=== PATIENT | male | born 1960 ===

== ENCOUNTER 2017-01-20 10:39 | Day surgery (SDC) | payer MEDICAID ==
[2017-01-01 19:59] VITALS: BMI 25.8
[~2017-01-20 10:39] MED LIST: Lactated Ringer's 1,000 ML IV SCH
[2017-01-20 11:19] LABS: ADD MANUAL DIFF? NO
[2017-01-20 11:22] LABS: BASO # 0.03 K/mm3 (0.0-2.0); BASO % 0.5 % (0.0-3.0); EOS # 0.1 (0.0-0.7); EOS % 1.5 % (1.5-5.0); GRAN # 4.65 (1.4-6.5); GRAN % 71.6 % (50.0-68.0); HEMATOCRIT 36.5 % (42.0-52.0); LYMPH # 1.3 (1.2-3.4); LYMPH % 19.3 % (22.0-35.0); MEAN CELL VOLUME 88.6 fL (80.0-105.0); MEAN CORPUSCULAR HEMOGLOBIN 31.3 pg (25.0-35.0); MEAN CORPUSCULAR HGB CONC 35.3 g/dl (31.0-37.0); MEAN PLATELET VOLUME 9.6 fl (7.0-11.0); MONO # 0.5 (0.1-0.6); MONO % 7.1 % (1.0-6.0); PLATELET COUNT 325 10^3/uL (120.0-450.0); RED CELL DISTRIBUTION WIDTH 15.3 % (11.5-14.5); WHITE BLOOD COUNT 6.5 10^3/ul (4.5-11.0)
[2017-01-20 11:30] LABS: ALB/GLOB RATIO 1.1 (1.1-1.8); ALKALINE PHOSPHATASE 419 U/L (38-133); ALT/SGPT 32 U/L (7-56); AMYLASE 119 U/L (35-125); AST/SGOT 31 U/L (15-59); BILIRUBIN,TOTAL 3.1 mg/dL (0.2-1.3); BLOOD UREA NITROGEN 9 mg/dL (7-21); CALCIUM 9.4 mg/dL (8.4-10.5); CARBON DIOXIDE 28 mmol/L (21-33); CHLORIDE 101 mmol/L (95-110); GFR AFRICAN-AMERICAN > 60; GLUCOSE,RANDOM 272 mg/dL (70-110); LIPASE 62 U/L (23-300); POTASSIUM 3.7 mmol/L (3.6-5.0); SODIUM 137 mmol/L (132-148); TOTAL PROTEIN 7.7 g/dL (5.8-8.3)
[2017-01-20 11:33] LABS: INR 1.06 (0.93-1.08); PARTIAL THROMBOPLASTIN TIME 26.6 Seconds (23.7-30.8)
[2017-01-20] MEDS ORDERED: Indomethacin 50 MG Suppository PR ONE (13:33)
[2017-01-20] MEDS ORDERED: Glucagon Recombinant 1 mg Inj ONE (13:35)
[2017-01-20] MEDS ORDERED: Iohexol 240 (50 ml) ONE (13:35)
[2017-01-20] MEDS ORDERED: Propofol 10 mg/ml Inj (20 ML) ONE (14:55)
[2017-01-20] MEDS ORDERED: Midazolam 2 MG/2 ML VIAL ONE ×2 (14:56→16:08)
[2017-01-20] MEDS ORDERED: Rocuronium 10 mg/ml (5 ml) ONE (14:56)
[2017-01-20] MEDS ORDERED: cefTRIAXone (Rocephin) 1 gm Inj ONE (16:15)
[2017-01-20 17:44] VITALS: TEMP 98; O2SAT 99
[2017-01-20 18:09] VITALS: BP 111/76; PULSE 71
[2017-01-20 18:19] VITALS: RESP 20
--- NOTE | 2017-01-24 14:54 | RAD ---
PROCEDURE: ERCP HISTORY: STENT REMOVAL / INSERTION / ? CBD OBST COMPARISON: 01/03/2017. TECHNIQUE: Standard protocol for this study/examination. FINDINGS: Documentation of stent insertions in the common bile duct. IMPRESSION: Total fluoroscopic time (continuous mode) utilized during the procedure: 7 minutes 37 seconds.
== END 2017-01-20 18:35 ==
LOC: ENDO 10:39
PROVIDERS: ATTEND Internal Medicine Gastroenterology
DX: K83.1 Obstruction of bile duct (principal)
CPT/HCPCS: 36415; 43276; 74330; 80053; 82150; 82977; 83690; 85025; 85610; 85730; C1876; J0696; J1610; J2001; J2250; J2405; J2704; J3010; J7040; J7120; Q9966

== ENCOUNTER 2017-02-27 12:10 | Inpatient (IN) | payer MEDICAID ==
[2017-02-27 12:50] VITALS: BMI 24.5
[2017-02-27] MEDS ORDERED: Sodium Chloride 0.9% 1,000 ML IV STA (13:16)
[2017-02-27] MEDS ORDERED: Morphine 4 mg/ml ISec IVP STA (13:16)
[2017-02-27] MEDS ORDERED: Iohexol 350 MG/100 ML VIAL ONE (14:08)
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
--- NOTE | 2017-02-27 17:47 | CT ---
PROCEDURE: CT Abdomen and Pelvis with contrast HISTORY: abd pain COMPARISON: Comparison is made to previous study dated 01/02/2017 TECHNIQUE: Contrast dose: 100 mL Omnipaque 350 Radiation dose: Total exam DLP = for to heat 0.12 mGy-cm. This CT exam was performed using one or more of the following dose reduction techniques: Automated exposure control, adjustment of the mA and/or kV according to patient size, and/or use of iterative reconstruction technique. FINDINGS: LOWER THORAX: Reticular opacities at the lung bases likely scar tissue or atelectasis. No evidence of pneumonia or mass lesion. No evidence of pleural effusion. LIVER: The liver is enlarged. A pneumobilia is seen likely due to biliary stent insertion. No evidence of suspicious mass in the liver. GALLBLADDER AND BILE DUCTS: The gallbladder is distended demonstrate diffuse wall thickening and surrounding with mild inflammatory changes. Small amount of air seen in the gallbladder likely due biliary stent and pneumobilia. Biliary stent is seen in place extending to duodenum. PANCREAS: Pancreatic head mass lesion is again seen at these larger compared to the previous exam. Moderately dilated main pancreatic duct. The pancreatic body and tail is atrophy. SPLEEN: Unremarkable. ADRENALS: Unremarkable. No mass. KIDNEYS AND URETERS: Unremarkable. No hydronephrosis. No solid mass. VASCULATURE: Unremarkable. No aortic aneurysm. BOWEL: Mild constipation is noted. No evidence of bowel obstruction. APPENDIX: No evidence of appendicitis. PERITONEUM: Unremarkable. No free fluid. No free air. LYMPH NODES: [id number] lymphadenopathy seen adjacent to the pancreatic head suggestive of metastasis from the pancreatic mass. BLADDER: Mildly to moderately distended urinary bladder. REPRODUCTIVE: Unremarkable. BONES: No acute fracture. OTHER FINDINGS: None. IMPRESSION: Interval worsening of pancreatic head mass. Interval appearance of lymphadenopathy adjacent to the pancreatic head highly suggestive of metastasis. Interval insertion of biliary stent seen at the appropriate position. Pneumobilia. Distended gallbladder demonstrate diffuse wall thickening and surrounding with inflammatory changes. Correlate clinically for cholecystitis. If indicated further assessment by hepatobiliary scan may be obtained. [id number] constipation. Mildly to moderately distended urinary bladder. Suspicious for filling defect in the left iliac and common femoral vein. Further assessment by Doppler study is suggested to exclude DVT.
[2017-02-27] MEDS ORDERED: Piperacill/Tazo 4.5gm in NS 100 ML IVPB STA (17:52)
[2017-02-27] MEDS ORDERED: Enoxaparin 80 mg Syringe SC ONE (18:15)
[2017-02-27] MEDS ORDERED: Sodium Chloride 0.9% 1,000 ML IV SCH (18:15)
[2017-02-27] MEDS ORDERED: Enoxaparin 80 mg Syringe SC SCH (18:15)
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
[2017-02-27] MEDS ORDERED: HYDROmorphone 0.5 mg/0.5 ml ISec IVP PRN (23:48)
[2017-02-28] MEDS ORDERED: Piperacillin/Tazobact 2.25gm 100 ML IVPB SCH
[2017-02-28 07:11] LABS: INR 1.01 (0.93-1.08); PARTIAL THROMBOPLASTIN TIME 30.3 Seconds (23.7-30.8)
[2017-02-28 07:12] LABS: BASO # 0.01 K/mm3 (0.0-2.0); BASO % 0.3 % (0.0-3.0); EOS # 0.1 (0.0-0.7); GRAN # 2.57 (1.4-6.5); GRAN % 65.2 % (50.0-68.0); HEMATOCRIT 35.4 % (42.0-52.0); LYMPH # 0.4 (1.2-3.4); LYMPH % 8.9 % (22.0-35.0); MEAN CELL VOLUME 89.6 fL (80.0-105.0); MEAN CORPUSCULAR HEMOGLOBIN 31.1 pg (25.0-35.0); MEAN CORPUSCULAR HGB CONC 34.7 g/dl (31.0-37.0); MONO # 0.9 (0.1-0.6); MONO % 23.6 % (1.0-6.0); PLATELET COUNT 162 10^3/uL (120.0-450.0); RED CELL DISTRIBUTION WIDTH 14.7 % (11.5-14.5); WHITE BLOOD COUNT 3.9 10^3/ul (4.5-11.0)
[2017-02-28 07:13] LABS: ADD MANUAL DIFF? NO
[2017-02-28 07:57] LABS: ALB/GLOB RATIO 1.1 (1.1-1.8); ALKALINE PHOSPHATASE 163 U/L (38-133); ALT/SGPT 30 U/L (7-56); AST/SGOT 24 U/L (15-59); BILIRUBIN,TOTAL 0.8 mg/dL (0.2-1.3); BLOOD UREA NITROGEN 5 mg/dL (7-21); CALCIUM 8.4 mg/dL (8.4-10.5); CARBON DIOXIDE 24 mmol/L (21-33); CHLORIDE 107 mmol/L (95-110); GFR AFRICAN-AMERICAN > 60; GLUCOSE,RANDOM 181 mg/dL (70-110); POTASSIUM 3.3 mmol/L (3.6-5.0); SODIUM 143 mmol/L (132-148); TOTAL PROTEIN 6.6 g/dL (5.8-8.3)
--- NOTE | 2017-02-28 08:11 | CP.PCM.PN ---
Subjective - Date & Time of Evaluation Date of Evaluation: 02/28/17 Time of Evaluation: 08:09 - Subjective Subjective: Dr. Mir Gaines PGY1 Note for Surgery Patient seen and examined at bedside; somewhat tangential thought process and therefore unable to get a reliable history although he is talking in complete sentences; denies any fevers/chills, LOPEZ, SOB, CP, abdominal pain, N/V/D, dysuria /freq/urg or lower extremity pain/swelling. When patient was requested if he wanted to eat; he said he did not want to and wishes to remain NPO. Objective - Vital Signs/Intake and Output Vital Signs (last 24 hours): Temp Pulse Resp BP Pulse Ox 98.2 F 74 20 101/63 99 02/28/17 07:59 02/28/17 07:59 02/28/17 07:59 02/28/17 07:59 02/28/17 07:59 - Medications Medications: Current Medications Clozapine (Clozaril) 300 mg PO HS AVA PRN Reason: Protocol Last Admin: 02/28/17 00:48 Dose: 300 mg Clozapine (Clozaril) 200 mg PO QAM AVA PRN Reason: Protocol Donepezil HCl (Aricept) 10 mg PO DAILY AVA Enoxaparin Sodium (Lovenox) 30 mg SC DAILY AVA PRN Reason: Protocol Famotidine (Pepcid) 40 mg PO HS AVA Hydromorphone HCl (Dilaudid) 0.5 mg IVP Q4H PRN PRN Reason: Pain, Mild (1-3) Sodium Chloride (Sodium Chloride 0.9%) 1,000 mls @ 100 mls/hr IV .Q10H AVA Last Admin: 02/27/17 18:36 Dose: 100 mls/hr Insulin Human Regular (Humulin R) 8 units SC ACHS AVA Phenytoin Sodium (Dilantin) 200 mg PO BID AVA Last Admin: 02/28/17 00:47 Dose: 200 mg - Labs Labs: 02/28/17 05:00 PT 10.9 Seconds (9.9-11.8) 02/28/17 06:47 INR 1.01 (0.93-1.08) 02/28/17 06:47 APTT 30.3 Seconds (23.7-30.8) 02/28/17 06:47 Assessment and Plan - Assessment and Plan (Free Text) Assessment: 56M with hx of pancreatic cancer currently undergoing radiation presents with abdominal pain likely 2/2 to pancreatic mass/gallbladder distention CT: GB distention with wall thickening/mild inflammed changes, stent in place, larger pancreatic mass compared with previous scan, mild/moderate lymphadenopathy suggestive of mets, filling defect in the iliac/femoral vein Plan: - NPO, IVF, patient does not want to eat at this time - HIDA scan positive with signs of acute choly - CMP within normal limits - f/u procalcitonin - f/u blood cultures - f/u LE ultrasound - serial abdominal exams; unchanged Will discuss with Dr. Zain Gaines PGY1 Note for Surgery
--- NOTE | 2017-02-28 08:26 | HP ---
CHIEF COMPLAINT: Abdominal pain. HISTORY OF PRESENT ILLNESS: The patient is a 56-year-old male, resident of [facility]. Has history of pancreatic cancer. Was getting chemotherapy and radiation therapy from [facility]. Came to the Emergency Department complaining of abdominal pain for the past 1 to 2 days. History obtained by the Emergency Department. Complaining of abdominal pain. The patient is verbal. He speaks Uzbek. There is no relieving or aggravating factor. No fever, no chills. No nausea, vomiting, or diarrhea. No hematuria or hematochezia. No swelling of the legs. No headache, no dizziness. PAST MEDICAL HISTORY: History of asthma, dementia, seizures, diabetes mellitus type 1. FAMILY HISTORY: Father and mother noncontributory. HABITS: Never smoked, no drugs, no ethanol. ALLERGIES: The patient is not allergic with any medications. HOME MEDICATIONS: Clozaril, insulin. REVIEW OF SYSTEMS: The patient is seen and examined on the bedside. Looks comfortable. No nausea, vomiting, or diarrhea. No hematuria or hematochezia. No swelling of the legs. No chest pain, no palpitation. No headache, no dizziness. PHYSICAL EXAMINATION: VITAL SIGNS: Temperature noted , pulse 78, respiratory rate 18, blood pressure 102/58, pulse oximetry 98. HEENT: Head normocephalic, atraumatic. Eyes: PERRLA. Extraocular muscles intact. Conjunctivae pink. Eyelids unremarkable. Nose patent. NECK: Supple. No carotid bruit, JVD or thyromegaly. CHEST: Bilaterally symmetrical. HEART: S1, S2 positive. LUNGS: Clear to auscultation. ABDOMEN: Soft, tender. No organomegaly. EXTREMITIES: No edema, no cyanosis. NEUROLOGIC: The patient is awake, alert, moving all 4 extremities. No focal deficit. LABORATORY DATA: We do not have labs today. MEDICATIONS: NS. ASSESSMENT AND PLAN: The patient is a 56-year-old male with history of dementia , neurosyphilis, schizophrenia, bipolar, has pancreatic cancer, history of abnormal liver function test, has metal stenting in the biliary system, history of seizures, diabetes mellitus, hypercholesterolemia, hypertriglyceridemia, history of anemia. The patient went for CAT scan of the abdomen of the pancreatic head mass. Interval appearance of lymphadenopathy at the center of the pancreatic head, highly cysts suggestive of metastasis. Interval insertion of biliary stent seen at the appreciated position. History of pneumobilia, distended gallbladder, thickening of the gallbladder sidewall. Looks like cholecystitis, so patient needs to have hepatobiliary scan. Will do HIDA scan tomorrow. Moderate to high constipation. Discussion done with ER physician. Admitted the patient. Dr. Guerrero consult called and Dr. Pittman consult called also. Will continue present treatment. Gastrointestinal and deep venous thrombosis prophylaxis. Repeat labs. Will follow up. Michelle Castillo MD cc: [id number] TT: 02/28/2017 08:25:59 pat CABALLERO
[2017-02-28] MEDS: Insulin Regular 1 UNITS/0.01 ML ML SC SCH ×4 (08:29→21:43)
--- NOTE | 2017-02-28 08:52 | NM ---
PROCEDURE: Nuclear Medicine Hepatobiliary Scan HISTORY: R/O cholecystitis COMPARISON: February 27, 2017. CT abdomen and pelvis. TECHNIQUE: 6.0 mCi of technetium 99m Mebrofenin was administered intravenously. Planar images of the abdomen were obtained at 5 min intervals to 60 mins. Delayed images were also obtained. FINDINGS: LIVER: Timely and homogenous uptake. COMMON BILE DUCT: Visualizes at 5 minutes GALLBLADDER: Not identified at 03:00. . SMALL BOWEL: Identified at 15 mins. IMPRESSION: Positive Hepatobiliary Scan. The cystic duct is occluded consistent with acute. Cholecystitis Concordant results (preliminary interpretation) provided by [facility]. Procedure Completed: 02:03. Preliminary ([facility]) Report: Dictated and Authenticated: 02:55. Final Interpretation: 08:50. February 28, 2017.
--- NOTE | 2017-02-28 10:59 | US ---
HISTORY: Leg pain and swelling. Evaluate for DVT PHYSICIAN(S): Raghu Luque MD. TECHNIQUE: Duplex sonography and color-flow Doppler with graded compression were used to evaluate the deep venous systems of both lower extremities. FINDINGS: The visualized deep venous systems of both lower extremities are sonographically normal and compressible. Normal wave forms and augmentation are seen. There is no sonographic evidence for deep venous thrombosis in the visualized segments of both lower extremities. IMPRESSION: No sonographic evidence for deep venous thrombosis in the visualized segments of both lower extremities.
[2017-02-28] MEDS: Enoxaparin 30 mg Syringe SC SCH (11:20)
--- NOTE | 2017-02-28 11:25 | CARD ---
APPROVED REPORT EKG Measurement Heart [id number] <Conclusion> Normal sinus rhythm Low voltage QRS Left anterior fascicular block Possible Lateral infarct, age undetermined Abnormal ECG
--- NOTE | 2017-02-28 12:29 | CP.PCM.PCO ---
Physician Communication Note - Physician Communication Note Physician Communication Note: Dx:Acalc cholecysttis(Improving-no sepsis)/?stent block Cystic duct=HOLD OR
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
[2017-03-01] MEDS: Insulin Regular 1 UNITS/0.01 ML ML SC SCH ×4 (07:46→23:00)
--- NOTE | 2017-03-01 08:02 | CP.PCM.PN ---
<Mir Cox - Last Filed: 03/01/17 08:03> Subjective - Date & Time of Evaluation Date of Evaluation: 03/01/17 Time of Evaluation: 08:01 - Subjective Subjective: Dr. Mir Cox PGY1 Note for Surgery Patient seen and examined at bedside this AM; denies any fevers/chills, LOPEZ, CP, SOB, abdominal pain, N/V/D, dysuria/freq/urg, or lower extremity pain. Objective - Vital Signs/Intake and Output Vital Signs (last 24 hours): Temp Pulse Resp BP Pulse Ox 98.0 F 74 20 99/63 L 96 03/01/17 07:27 03/01/17 07:27 03/01/17 07:27 03/01/17 07:27 03/01/17 07:27 Intake and Output: 03/01/17 03/01/17 06:59 18:59 Intake Total 0 Output Total 500 Balance -500 - Medications Medications: Current Medications Clozapine (Clozaril) 300 mg PO HS AVA PRN Reason: Protocol Last Admin: 02/28/17 21:40 Dose: 300 mg Clozapine (Clozaril) 200 mg PO QAM AVA PRN Reason: Protocol Last Admin: 02/28/17 11:21 Dose: 200 mg Donepezil HCl (Aricept) 10 mg PO DAILY [facility] Last Admin: 02/28/17 14:23 Dose: 10 mg Enoxaparin Sodium (Lovenox) 30 mg SC DAILY AVA PRN Reason: Protocol Last Admin: 02/28/17 11:20 Dose: 30 mg Famotidine (Pepcid) 40 mg PO HS [facility] Last Admin: 02/28/17 21:44 Dose: 40 mg Hydromorphone HCl (Dilaudid) 0.5 mg IVP Q4H PRN PRN Reason: Pain, Mild (1-3) Last Admin: 02/28/17 11:20 Dose: 0.5 mg Sodium Chloride (Sodium Chloride 0.9%) 1,000 mls @ 100 mls/hr IV .Q10H [facility] Last Admin: 02/27/17 18:36 Dose: 100 mls/hr Insulin Human Regular (Humulin R) 8 units SC ACHS [facility] Last Admin: 03/01/17 07:46 Dose: Not Given Phenytoin Sodium (Dilantin) 200 mg PO BID [facility] Last Admin: 02/28/17 17:50 Dose: 200 mg - Labs Labs: 02/28/17 05:00 02/28/17 06:47 PT 10.9 Seconds (9.9-11.8) 02/28/17 06:47 INR 1.01 (0.93-1.08) 02/28/17 06:47 APTT 30.3 Seconds (23.7-30.8) 02/28/17 06:47 - Constitutional Appears: Non-toxic - Head Exam Additional comments: Head Exam: ATRAUMATIC - Eye Exam Eye Exam: EOMI, PERRL - ENT Exam ENT Exam: Mucous Membranes Moist - Respiratory Exam Respiratory Exam: Clear to Auscultation Bilateral, NORMAL BREATHING PATTERN - Cardiovascular Exam Cardiovascular Exam: REGULAR RHYTHM, +S1, +S2 - GI/Abdominal Exam GI & Abdominal Exam: Soft. absent: Distended, Firm, Guarding, Rebound, Rigid, Tenderness Additional comments: target signs drawn on with ink from radiation facility for radiation noted on abdomen - Extremities Exam Extremities exam: Negative for: pedal edema, tenderness - Psychiatric Exam Psychiatric exam: Normal Affect, Normal Mood - Skin Skin Exam: Dry, Intact, Normal Color, Warm Assessment and Plan - Assessment and Plan (Free Text) Assessment: 56M with hx of pancreatic cancer currently undergoing radiation presents with abdominal pain likely 2/2 to pancreatic mass/gallbladder distention CT: GB distention with wall thickening/mild inflammed changes, stent in place, larger pancreatic mass compared with previous scan, mild/moderate lymphadenopathy suggestive of mets, filling defect in the iliac/femoral vein Plan: - NPO, IVF, patient does not want to eat at this time - HIDA scan positive with signs of acute choly - Stent likely blocking the CBD causing gallbladder distention; GI following follow their recs - CMP within normal limits - procal wnl - BCx no growth after 24hrs; will follow - LE US showed no signs for DVT - serial abdominal exams; unchanged Will discuss with Dr. Zain Cox PGY1 Note for Surgery <Osvaldo Pittman - Last Filed: 03/01/17 08:32> Objective - Vital Signs/Intake and Output Vital Signs (last 24 hours): Temp Pulse Resp BP Pulse Ox 98.0 F 74 20 99/63 L 96 03/01/17 07:27 03/01/17 07:27 03/01/17 07:27 03/01/17 07:27 03/01/17 07:27 Intake and Output: 03/01/17 03/01/17 06:59 18:59 Intake Total 0 Output Total 500 Balance -500 - Medications Medications: Current Medications Clozapine (Clozaril) 300 mg PO HS AVA PRN Reason: Protocol Last Admin: 02/28/17 21:40 Dose: 300 mg Clozapine (Clozaril) 200 mg PO QAM AVA PRN Reason: Protocol Last Admin: 02/28/17 11:21 Dose: 200 mg Donepezil HCl (Aricept) 10 mg PO DAILY [facility] Last Admin: 02/28/17 14:23 Dose: 10 mg Enoxaparin Sodium (Lovenox) 30 mg SC DAILY [facility] PRN Reason: Protocol Last Admin: 02/28/17 11:20 Dose: 30 mg Famotidine (Pepcid) 40 mg PO HS [facility] Last Admin: 02/28/17 21:44 Dose: 40 mg Hydromorphone HCl (Dilaudid) 0.5 mg IVP Q4H PRN PRN Reason: Pain, Mild (1-3) Last Admin: 02/28/17 11:20 Dose: 0.5 mg Sodium Chloride (Sodium Chloride 0.9%) 1,000 mls @ 100 mls/hr IV .Q10H [facility] Last Admin: 02/27/17 18:36 Dose: 100 mls/hr Insulin Human Regular (Humulin R) 8 units SC ACHS [facility] Last Admin: 03/01/17 07:46 Dose: Not Given Phenytoin Sodium (Dilantin) 200 mg PO BID [facility] Last Admin: 02/28/17 17:50 Dose: 200 mg - Labs Labs: 02/28/17 05:00 02/28/17 06:47 PT 10.9 Seconds (9.9-11.8) 02/28/17 06:47 INR 1.01 (0.93-1.08) 02/28/17 06:47 APTT 30.3 Seconds (23.7-30.8) 02/28/17 06:47 Assessment and Plan - Assessment and Plan (Free Text) Plan: Dx Recent Covered metal CD Stent(Pancreatic CA) Non Viz HIDA(?Stent Block cystic duct) Nl LFT_WBC-Procalcitonin Sx abating - minimal tenderness IMP acalculous cholecystitis(Non Septic) Discussed with Dr Rachele Luque possible CT Drainage if sx worsen(Surgery not recommended) This consult done under my direct supervision Carmen Pittman MD FACS
--- NOTE | 2017-03-01 08:07 | PN ---
DATE: 02/28/2017 The patient is a 56-year-old male. The patient was seen and examined on the bedside, looks comfortable. Abdominal pain is getting better. No nausea, vomiting, diarrhea. No hematuria, no hematochezia. The patient is not a very good historian. No headache, no dizziness. PHYSICAL EXAMINATION: VITAL SIGNS: Temperature 98.2, blood pressure 101/63, pulse 74, respirations 20, oxygenation 99% on room air. HEENT: Head normocephalic, atraumatic. Eyes, PERRLA, extraocular muscles intact. Conjunctivae pink. Eyelids unremarkable. Nose patent. NECK: Supple. No carotid bruit, no JVD, no thyromegaly. CHEST: Bilaterally symmetrical. HEART: S1, S2 positive. LUNGS: Clear to auscultation. ABDOMEN: Soft, tender in the epigastric area. No organomegaly. EXTREMITIES: No edema, no cyanosis. NEUROLOGIC: The patient is awake, alert, moving all 4 extremities. No focal deficit. LABORATORIES: White blood cells 3.9, hemoglobin 12.3, hematocrit 35.4, platelets noted . Sodium 143, potassium 3.3, BUN 5, creatinine 0.4, AST 24, ALT 30, amylase 73, lipase 11. Had CAT scan of the abdomen which was showing distended gallbladder with diffuse wall thickening and inflammatory changes. There is amount of air seen in the gallbladder, likely due to the biliary stent and pneumophilia. ASSESSMENT AND PLAN: the patient is a 56-year-old male with pancreatic cancer, getting radiation therapy and chemotherapy, history of neurosyphilis, advanced dementia. Now came with abdominal pain and the patient looks like has acute cholecystitis, history of hypertension, asthma, uncontrolled diabetes mellitus. CT scan of the abdomen appreciated, has mild to moderate lymphadenopathy, possibly mets. Plan is currently n.p.o. We will continue IV fluid for hydration, on proton pump inhibitors, is getting Dilantin. He completed Zosyn therapy. Follow up with patient's course, maybe need endoscopic retrograde cholangiopancreatogram for evaluation of stent and replacement of the stent. We will continue to follow up the patient. Appreciated nurse practitioner, Vale Lo, input. Appreciated Dr. Pittman' communication report. According to him, patient has acalculous cholecystitis, improving, now sepsis, stent block or cystic duct block questionable. Biliary scan is appreciated. Will follow up. Michelle Castillo MD cc: [id number] TT: 03/01/2017 08:06:33 Confirmation # [id number] Dictation # [id number] en [place]
[2017-03-01 09:10] LABS: BASO # 0.02 K/mm3 (0.0-2.0); BASO % 0.5 % (0.0-3.0); EOS # 0.1 (0.0-0.7); EOS % 1.8 % (1.5-5.0); GRAN # 2.64 (1.4-6.5); GRAN % 68.4 % (50.0-68.0); HEMATOCRIT 40.1 % (42.0-52.0); LYMPH # 0.4 (1.2-3.4); LYMPH % 11.4 % (22.0-35.0); MEAN CELL VOLUME 88.9 fL (80.0-105.0); MEAN CORPUSCULAR HEMOGLOBIN 31.5 pg (25.0-35.0); MEAN CORPUSCULAR HGB CONC 35.4 g/dl (31.0-37.0); MONO # 0.7 (0.1-0.6); MONO % 17.9 % (1.0-6.0); PLATELET COUNT 209 10^3/uL (120.0-450.0); RED CELL DISTRIBUTION WIDTH 14.5 % (11.5-14.5); WHITE BLOOD COUNT 3.9 10^3/ul (4.5-11.0)
[2017-03-01 09:14] LABS: ALB/GLOB RATIO 1.2 (1.1-1.8); ALKALINE PHOSPHATASE 195 U/L (38-133); ALT/SGPT 33 U/L (7-56); AST/SGOT 27 U/L (15-59); BLOOD UREA NITROGEN 5 mg/dL (7-21); CALCIUM 9.1 mg/dL (8.4-10.5); CARBON DIOXIDE 19 mmol/L (21-33); CHLORIDE 106 mmol/L (95-110); GFR AFRICAN-AMERICAN > 60; GLUCOSE,RANDOM 119 mg/dL (70-110); POTASSIUM 3.2 mmol/L (3.6-5.0); SODIUM 143 mmol/L (132-148); TOTAL PROTEIN 7.9 g/dL (5.8-8.3)
[2017-03-01 09:22] LABS: ADD MANUAL DIFF? NO
[2017-03-01] MEDS: Enoxaparin 30 mg Syringe SC SCH (09:41)
--- NOTE | 2017-03-01 10:24 | CON ---
DATE: 02/28/2017 ADDENDUM This is an addendum to the GI consultation report dictated by Vale Lo NP. This patient was seen and evaluated earlier, discussed also with Dr. Pittman. This 56-year-old patient with a pancreatic carcinoma status post metal stent placement had placement of metal stent about 6 weeks ago, presented with abdominal pain for 2 days' duration. Pain mainly in the right side of the abdomen. The patient did have some tenderness. A CT scan of the abdomen showed some distention of the gallbladder. HIDA scan showed nonvisualized gallbladder. Gallbladder showed a mild diffuse thickening with some m ild inflammatory changes, and pneumophilia, probably secondary to the ERCP. LFTs remain normal. Con sideration for the patient - options should include cholecystostomy and removal of the metal stent wi th changing it to uncovered metal stent. Clinically, the patient is not in acute distress, only has some mild tenderness present. No leukocyt osis. LFTs normal. We will discuss the oncologist and also the surgeon again ____ the PCP regarding the further treatmen t plan. We will continue to closely follow up his care. The patient is on a liquid diet, and we raghu l continue to closely follow up outpatient and suggest further recommendation based on the clinical c ourse. Harjeet Guerrero MD cc: [id number] TT: 03/01/2017 10:23:12 Confirmation # [id number] Dictation # [id number] ct
[2017-03-01] MEDS ORDERED: Potassium Chloride 20 mEq ER Tab PO ONE (12:00)
--- NOTE | 2017-03-01 12:04 | PN ---
DATE: 03/01/2017 GI FOLLOWUP NOTE Seen and examined at the bedside this morning. He denies nausea, vomiting. Abdominal pain is better . He agrees to starting oral intake. The patient just returned from radiation this morning. No acu te overnight events reported. VITAL SIGNS: Temperature 98.0, blood pressure 99/63, pulse 74, respirations 20, 96 on room air. LABORATORY DATA: WBC 3.9. H and H are 14.2 and 40.1, platelets of 219. His sodium is 143, K 3.2. BUN is 5. Creatinine is 0.4. His total bilirubin is 1.2, AST 27, ALT 33. Alkaline phosphatase is 1 95. PHYSICAL EXAMINATION: HEENT: Sclerae are anicteric. NECK: Supple. CARDIAC: S1, S2. LUNGS: Lung sounds with decreased breath sounds, but good air entry. No rales or wheeze. ABDOMEN: With bowel sounds, soft, nontender on deep palpation. No rebound or guarding. EXTREMITIES: No edema or calf tenderness. ASSESSMENT: A 56-year-old male with history of pancreatic cancer, currently undergoing radiation, ca me with abdominal pain, which may be likely to pancreatic mass, gallbladder distention. The patient did have a CT scan showing gallbladder distention and wall thickening. The stent is in place, but al so noted to have moderate lymphadenopathy suggestive of mets, and the pancreatic mass seems larger th an previous CT scan, status post HIDA with reporting nonvisualization of the gallbladder. PLAN: We will start the patient on clear liquid diet. He also is hypokalemic. We will replace his potassium and recheck the labs in the a.m. Monitor the LFTs. Possible options for the patient could be removal of the metal stent with changing it to an uncovered metal stent versus a cholecystostomy. Option to be considered is removal of the metal stent with changing it to an uncovered metal stent versus a cholecystostomy. We will discuss with oncology and surgical team, as well as PCP. We will continue to follow. The patient was seen and case discussed with Dr. Guerrero. Vale REY cc: [id number] TT: 03/01/2017 12:04:00 Confirmation # [id number] Dictation # [id number] jn
[2017-03-01] MEDS ORDERED: Sodium Chloride 0.9% 1,000 ML IV SCH (22:30)
--- NOTE | 2017-03-01 22:32 | PN ---
DATE: 03/01/2017 ADDENDUM This is an addendum to the GI progress report dictated by Vale Lo NP. The patient is doing well , no complaints of any abdominal pain. PHYSICAL EXAMINATION: ABDOMEN: Soft. There is no tenderness. LABORATORY DATA: WBC count is only 3.9. There is a mild evaluation of the was noticed. IMPRESSION: Presently not on any antibiotics. The patient was antibiotics; the patient was on Zosyn , which has been discontinued. It is reasonable to consider restarting antibiotics to complete the c ourse. Since the patient is doing clinically well with no symptoms, would not contemplate doing any changes in the present time. The risks, benefits were discussed. The reasonable approach is we will c losely monitor the patient at the present time. We will consider further options including cholecyst ostomy and also repeat ERCP with if needed based on the clinical response. Thank you very much for allowing us to participate in the care of the patient. Harjeet Guerrero MD cc: [id number] TT: 03/01/2017 22:31:41 Confirmation # [id number] Dictation # [id number] mn
--- NOTE | 2017-03-02 00:45 | CON ---
DATE: 03/01/2017 REQUESTING PHYSICIAN: Dr. Finch. CHIEF COMPLAINT: Abdominal pain. HISTORY OF PRESENT ILLNESS: The patient is a 56-year-old male looking older than his stated age, adm itted by Dr. Castillo, his primary doctor, via the Emergency Room for worsening abdominal pain for 2 da ys' time. He is known to suffer from pancreatic cancer, dementia, neurosyphilis, bipolar disorder. He is otherwise resting comfortably now. Reporting that his abdominal pain is significantly improved . He is otherwise in no acute distress. ALLERGIES: No known allergies. MEDICATIONS: At present include Aricept, clozapine, Dilantin, Dilaudid, insulin coverage, potassium, Lovenox, Pepcid, sodium chloride, piperacillin and tazobactam. PAST MEDICAL HISTORY: Significant for dementia; paranoid schizophrenia; neurosyphilis; locally advan sowmya pancreatic carcinoma involving the splenic vein, not a surgical candidate; dementia; asthma; seiz ure disorder; hypertension; history of jaundice. FAMILY HISTORY AND SOCIAL HISTORY: Noncontributory. REVIEW OF SYSTEMS: Essentially negative to questioning except as above. OBJECTIVE/PHYSICAL EXAMINATION: VITAL SIGNS: Temperature 98.8, pulse 72, respirations 18, blood pressure 102/67, and pulse ox 98%. HEENT: Unremarkable. NECK: Supple. HEART: Regular rate. LUNGS: Clear. ABDOMEN: Soft with no tenderness this visit. EXTREMITIES: No edema. SKIN: Warm, dry, and clear. NEUROLOGIC: Awake and alert. LABORATORY DATA: White blood cell count of 3.9, hemoglobin 14.2, hematocrit of 40.1, platelet count of 209,000 with a chem metabolic panel showing a potassium of 3.2, BUN of 5, creatinine of 0.4 with a n alk phos of 195. Procalcitonin 0.05. INR of 1.01 yesterday. ASSESSMENT: Abdominal pain, improved; dementia; neurosyphilis; bipolar disorder; schizophrenia; panc reatic cancer; seizure disorder; diabetes; anemia; hypokalemia. PLAN: After conversation with Dr. Finch, is to continue present the medical regimen with chemother apy and radiation, which he was tolerating well and continue his present medical regimen with the pat ient presently getting normal saline with no potassium. The patient tolerating a liquid diet. We wi ll monitor clinically and with labs. Prognosis for this patient is guarded. We will cut back on his IV fluids from 100 mL an hour to 50 with prognosis for this patient guarded. Wild Santillan MD cc: [id number] TT: 03/02/2017 00:44:22 Confirmation # [id number] Dictation # [id number] tn
[2017-03-02 07:17] LABS: ALB/GLOB RATIO 1.1 (1.1-1.8); ALKALINE PHOSPHATASE 162 U/L (38-133); ALT/SGPT 36 U/L (7-56); AST/SGOT 26 U/L (15-59); BILIRUBIN,TOTAL 0.8 mg/dL (0.2-1.3); BLOOD UREA NITROGEN 2 mg/dL (7-21); CALCIUM 8.6 mg/dL (8.4-10.5); CARBON DIOXIDE 24 mmol/L (21-33); CHLORIDE 109 mmol/L (98-107); GFR AFRICAN-AMERICAN > 60; GLUCOSE,RANDOM 130 mg/dL (70-110); POTASSIUM 3.6 mmol/L (3.6-5.0); SODIUM 143 mmol/L (132-148); TOTAL PROTEIN 6.8 g/dL (5.8-8.3)
[2017-03-02] MEDS: Insulin Regular 1 UNITS/0.01 ML ML SC SCH ×3 (08:14→16:35)
--- NOTE | 2017-03-02 09:09 | CP.PCM.PCO ---
Physician Communication Note - Physician Communication Note Physician Communication Note: No Pain-infection/Rx Change CD Stent)Part Occluding/No surgery now
--- NOTE | 2017-03-02 09:59 | PN ---
DATE: 03/01/2017 The patient is a 56-year-old male. The patient was seen and examined on 03/01/2017 on the bedside, lo oks comfortable, got radiation therapy. No overnight event noted. No nausea, vomiting, diarrhea. T olerated food well. No hematuria, no hematochezia. Feeling better. PHYSICAL EXAMINATION: VITAL SIGNS: Temperature 98, blood pressure 99/63, pulse 74, respiratory rate 20, oxygenation 96% on room air. HEENT: Head normocephalic, atraumatic. Eyes PERRLA, extraocular muscles intact. Conjunctivae pink. Eyelids unremarkable. Nose patent. Mucous membranes moist. NECK: Supple. No carotid bruit, no JVD, no thyromegaly. CHEST: Bilaterally symmetrical. HEART: S1, S2 positive. LUNGS: Clear to auscultation. ABDOMEN: Soft. Bowel sounds positive. No organomegaly. EXTREMITIES: No edema, no cyanosis. NEUROLOGIC: The patient is awake, alert, moving all 4 extremities. No focal deficits. LABORATORIES: White blood cells 3.9, hemoglobin 14.2, hematocrit 40.1, platelets 219. Sodium 143, p otassium 3.2, BUN 5, creatinine 0.4, AST 27, ALT 33. MEDICATIONS: Reviewed by me. ASSESSMENT AND PLAN: The patient is a 56-year-old male, seen and examined on 03/01/2017, has pancreat ic cancer, getting radiation therapy, came with abdominal pain which may be likely due to pancreatic mass, gallbladder distention. The patient had a CAT scan showing gallbladder distention and wall thi ckening. The stent is in place, but also noted to have moderate lymphadenopathy suggestive of the me ts and the pancreatic mets seem larger than the previous CT scan. Status post HIDA with reporting no nvisualization of the gallbladder. The patient was started on clear liquid diet. Potassium was repl aced, but we are monitoring H and H and LFTs. Maybe patient needs to be removal of the metal stent w ith changing it into uncovered metal stent versus cholecystectomy. Oncology, surgery, GI is on the c ase. Appreciated GI input, appreciated Dr. Pittman's input. Physical therapy, out of bed. Will fo llow up. Michelle Castillo MD cc: [id number] TT: 03/02/2017 09:59:23 Confirmation # [id number] Dictation # [id number] en
[2017-03-02] MEDS: Enoxaparin 30 mg Syringe SC SCH (10:06)
--- NOTE | 2017-03-02 15:29 | CP.PCM.PN ---
Subjective - Date & Time of Evaluation Date of Evaluation: 03/02/17 Time of Evaluation: 15:28 - Subjective Subjective: Dr. Mir Gaines PGY1 Surgery Note for Dr. Pittman Patient seen and examined at bedside this afternoon; denies any acute events or complaints; still does not feel like eating although has been eating trays that are brought to him without problem; denies fevers/chills, LOPEZ, CP, SOB, abdominal pain, N/V/D, dysuria/freq/urg, or lower extremity pain. Objective - Vital Signs/Intake and Output Vital Signs (last 24 hours): Temp Pulse Resp BP Pulse Ox 98.0 F 65 20 98/54 L 97 03/02/17 07:25 03/02/17 07:25 03/02/17 07:25 03/02/17 07:25 03/02/17 07:25 Intake and Output: 03/02/17 03/02/17 06:59 18:59 Intake Total 1480 560 Output Total 400 Balance 1080 560 - Medications Medications: Current Medications Clozapine (Clozaril) 300 mg PO HS AVA PRN Reason: Protocol Last Admin: 03/01/17 22:09 Dose: 300 mg Clozapine (Clozaril) 200 mg PO QAM AVA PRN Reason: Protocol Last Admin: 03/02/17 10:05 Dose: 200 mg Donepezil HCl (Aricept) 10 mg PO DAILY [facility] Last Admin: 03/02/17 10:06 Dose: 10 mg Enoxaparin Sodium (Lovenox) 30 mg SC DAILY AVA PRN Reason: Protocol Last Admin: 03/02/17 10:06 Dose: 30 mg Famotidine (Pepcid) 40 mg PO HS [facility] Last Admin: 03/01/17 22:11 Dose: 40 mg Hydromorphone HCl (Dilaudid) 0.5 mg IVP Q4H PRN PRN Reason: Pain, Mild (1-3) Last Admin: 02/28/17 11:20 Dose: 0.5 mg Sodium Chloride (Sodium Chloride 0.9%) 1,000 mls @ 50 mls/hr IV .Q20H [facility] Last Admin: 03/01/17 22:48 Dose: 50 mls/hr Insulin Human Regular (Humulin R) 8 units SC ACHS [facility] Last Admin: 03/02/17 11:58 Dose: 8 units Phenytoin Sodium (Dilantin) 200 mg PO BID AVA Last Admin: 03/02/17 10:06 Dose: 200 mg - Labs Labs: 03/01/17 07:30 03/02/17 06:00 PT 10.9 Seconds (9.9-11.8) 02/28/17 06:47 INR 1.01 (0.93-1.08) 02/28/17 06:47 APTT 30.3 Seconds (23.7-30.8) 02/28/17 06:47 - Constitutional Appears: Non-toxic - Head Exam Additional comments: Head Exam: ATRAUMATIC - Eye Exam Eye Exam: EOMI, PERRL - ENT Exam ENT Exam: Mucous Membranes Moist - Respiratory Exam Respiratory Exam: Clear to Auscultation Bilateral, NORMAL BREATHING PATTERN - Cardiovascular Exam Cardiovascular Exam: REGULAR RHYTHM, +S1, +S2 - GI/Abdominal Exam GI & Abdominal Exam: Soft. absent: Distended, Firm, Guarding, Rebound, Rigid, Tenderness Additional comments: target signs drawn on with ink from radiation facility for radiation noted on abdomen - Extremities Exam Extremities exam: Negative for: pedal edema, tenderness - Psychiatric Exam Psychiatric exam: Normal Affect, Normal Mood - Skin Skin Exam: Dry, Intact, Normal Color, Warm Assessment and Plan - Assessment and Plan (Free Text) Assessment: 56M with hx of pancreatic cancer currently undergoing radiation presents with abdominal pain likely 2/2 to pancreatic mass/gallbladder distention CT: GB distention with wall thickening/mild inflammed changes, stent in place, larger pancreatic mass compared with previous scan, mild/moderate lymphadenopathy suggestive of mets, filling defect in the iliac/femoral vein Plan: - Patient on CLD; tolerating - HIDA scan positive; however no surgery indicated at this time - Stent likely blocking the CBD causing gallbladder distention; GI following follow their recs as well - CMP within normal limits - procal wnl - BCx no growth after 48hrs; will follow - LE US showed no signs for DVT - serial abdominal exams; unchanged Will discuss with Dr. Zain Gaines PGY1 Note for Surgery
[2017-03-02 16:41] VITALS: BP 113/72; PULSE 80; RESP 18; TEMP 98.3; O2SAT 100
--- NOTE | 2017-03-02 18:33 | PN ---
DATE: 03/02/2017 Seen and examined at the bedside earlier this morning. No acute overnight events reported. Nursing staff at bedside for translation. The patient does not complain of any abdominal pain. He is a bit annoyed, he is hungry. He is tolerating the clear liquid diet. No reports of any diarrhea, fever or chills. The patient did have bowel movement. No reports of overt GI bleed. VITAL SIGNS: Temperature is 98, blood pressure 98/54, pulse 65, respirations 20 , 97 on room air. LABORATORY DATA: CMP: Sodium 143, K 3.6. His total bilirubin is 0.8, AST 26, ALT 36, alkaline phosphatase is bit improved at 162. Dilantin level is at 8, it is low. The patient's Dilantin doses have been reviewed. See orders. The patient's Dilantin dose has been adjusted per PCP. PHYSICAL EXAMINATION: HEENT: Sclerae are anicteric. NECK: Supple. CARDIAC: S1, S2. LUNGS: Lung sounds with decreased breath sounds, but good air entry. No rales or wheeze. ABDOMEN: With bowel sounds, soft, nontender on deep palpation. No rebound or guarding. EXTREMITIES: No edema or calf tenderness. ASSESSMENT: A 56-year-old male with history of pancreatic cancer, currently undergoing radiation, came with abdominal pain, which may be likely to pancreatic mass, gallbladder distention. The patient did have a CT scan showing gallbladder distention and wall thickening. The stent is in place, but also noted to have moderate lymphadenopathy suggestive of mets, and the pancreatic mass seems larger than previous CT scan, status post HIDA with reporting nonvisualization of the gallbladder. PLAN: We will increase patient's diet to a low fat, soft diet. Monitor liver function tests. The patient is clinically doing well with no symptoms. No plans for any GI intervention at this time. Will continue to follow the patient. Depending upon patient's clinical response, can consider further options of cholecystostomy or repeat ERCP. The patient was seen and case discussed Dr. Guerrero. Vale REY cc: [id number] TT: 03/02/2017 18:33:30 Confirmation # [id number] Dictation # [id number] jn MTDD
--- NOTE | 2017-03-03 00:12 | PN ---
DATE: 03/02/2017 SUBJECTIVE: The patient was seen and examined on the bedside, sitting on the chair. No more pain. No nausea or vomiting. No diarrhea. No acute overnight events reported. The patient is tolerating food very well. The patient had bowel movement. No reports for overt GI bleeding. PHYSICAL EXAMINATION: VITAL SIGNS: Temperature 98, blood pressure 98/54, pulse 65, respiratory rate 20, pulse oximetry 97% on room air. HEENT: Head normocephalic, atraumatic. Eyes PERRLA. Extraocular muscles intact. Conjunctivae clear. Nose patent. Mucous membranes moist. NECK: Supple. No carotid bruits, JVD or thyromegaly. CHEST: Bilaterally symmetrical. HEART: S1, S2 positive. LUNGS: Clear to auscultation. ABDOMEN: Soft. Bowel sounds present. No organomegaly. EXTREMITIES: No edema, no cyanosis. NEUROLOGIC: The patient awake, alert, moving all 4 extremities. No focal deficits. MEDICATIONS: Reviewed by me. LABORATORY DATA: Sodium 143, potassium 3.4, bilirubin 0.8, AST 26, ALT 36, alkaline phosphate improving to 162. Dilantin level is 8, a little bit low. ASSESSMENT AND PLAN: The patient is a 56-year-old male with history of neurosyphilis, history of seizures. Was on Dilantin at 200 mg twice a day, now Dilantin level is low 8. I made Dilantin 300 in the morning, 200 in the evening. We will repeat Dilantin level later on. History of abnormal liver function test, trending down. Clinically, patient is doing better with no symptoms. History of pancreatic cancer, diabetes mellitus. According to gastrointestinal, no plans for any gastrointestinal intervention at this time. Depending on patient's clinical condition, gastrointestinal is recommending options of cholecystectomy or repeat ERCP. Appreciated Dr. Pittman' input also. History of schizophrenia, depression, bipolar. The patient is undergoing radiation therapy due to pancreatic cancer. The patient has some pancreatic mass or gallbladder distention, may be cause of the pain. Stent is placed. pancreatic mass compared to the previous scan. Mild/moderate lymphadenopathy, Gastrointestinal, deep venous thrombosis prophylaxis. HIDA scan positive for no surgery indicated at this time. Out of bed, physical therapy. Length of time discussion done with the nursing staff. We will follow up. Michelle Castillo MD cc: [id number] TT: 03/03/2017 00:11:21 Confirmation # [id number] Dictation # [id number] MTDD
--- NOTE | 2017-03-03 02:29 | PN ---
DATE: 03/02/2017 SUBJECTIVE: This patient was seen and evaluated earlier. The patient has no abdominal pain. The di et has been advanced, tolerating very well. LABORATORY DATA: Bilirubin and total alkaline phosphatase has come down to 162. The patient is not on any antibiotics now. PHYSICAL EXAMINATION: The patient remains afebrile, no leukocytosis. No tenderness. IMPRESSION: This 56-year-old patient with obstruction secondary to the pancreatic mass, status post metal stent placement, admitted after two months with abdominal pain, distended gallbladder, possible cystic duct obstruction. The patient is afebrile with no tenderness, no leukocytosis. LFTs remains stable. The options were discussed. Regarding the stent change with cholecystectomy, since the pat ient remains totally asymptomatic off the medication and normal LFTs, the reasonable approach is to f ollow with conservative management at the present time. Should the patient have any worsening of the symptoms or the patient develops symptoms or worsening of the LFTs more, we will consider interventi on. The reasonable approach to at the presentation is conservative management. This will be discuss ed with the surgical team also. I have discussed earlier regarding this patient with Dr. Raghu Luque , interventional radiologist, and also tertiary earlier. Thank you very much for allowing me to participate in the care of the patient. Harjeet Guerrero MD cc: [id number] TT: 03/03/2017 02:29:19 Confirmation # [id number] Dictation # [id number] mn
--- NOTE | 2017-03-13 08:24 | DS ---
CHIEF COMPLAINT: Abdominal pain. HISTORY OF PRESENT ILLNESS: The patient is a 56-year-old male resident of [facility], has a history of pancreatic cancer, was getting chemotherapy, radiation therapy from [facility]. Came to the Emergency Department complaining of abdominal pain. The patient speaks [place], but we got the history with the service desk team lead. No relieving and aggravating factors. No fever or chills. We admitted the patient, did CAT scan of abdomen and pelvis, biliary scan. Seen by Dr. Osvaldo Pittman, by Dr. Guerrero. Liver function enzymes got better. Discharged back to [facility] on 03/02/2017. PAST MEDICAL HISTORY: Asthma, dementia, seizure, diabetes mellitus. FAMILY HISTORY: Father and mother noncontributory. HABITS: No smoking, no drugs, no ethanol. ALLERGIES: The patient is not allergic with any medications. HOME MEDICATIONS: Clozaril, insulin. REVIEW OF SYSTEMS: The patient is seen and examined on the bedside, looks comfortable. No nausea, vomiting, diarrhea. No hematuria, no hematochezia. No swelling of the legs. No chest pain, no palpitation, no headache, no dizziness. PHYSICAL EXAMINATION: VITAL SIGNS: Temperature 98.3, pulse 80, blood pressure 120/72, respiratory rate 18. HEENT: Head normocephalic, atraumatic. Eyes: PERRLA. Extraocular muscles intact. Conjunctivae clear. Nose patent. Mucous membranes moist. NECK: Supple. No carotid bruit, no JVD, no thyromegaly. CHEST: Bilaterally symmetrical. HEART: S1, S2 positive. LUNGS: Clear to auscultation. ABDOMEN: Soft. Bowel sounds positive. No organomegaly. EXTREMITIES: No edema, no cyanosis. NEUROLOGIC: The patient is awake, alert, moving all 4 extremities. No focal deficits, is back to his baseline. LABORATORIES: White blood cells 3.9, hemoglobin 14.2, hematocrit 40.platelets 209. Sodium 143, potassium 3.6, BUN 2, creatinine 0.4, random glucose 130, alkaline phosphatase 162. ASSESSMENT AND PLAN: The patient is a 56-year-old male with anemia, leukopenia , renal insufficiency, hypoglycemia, abnormal liver function test, Dilantin level is low. ASSESSMENT AND PLAN: The patient is a 56-year-old male with history of neurosyphilis, on Dilantin. Dilantin level is low. I increased the Dilantin. History of abnormal liver function tests, trending down. Clinically, patient is doing better with no symptoms, history of pancreatic cancer, diabetes mellitus, history of gastrointestinal disease, biliary stenosis, has biliary stent, history of schizophrenia, depression, bipolar. Getting radiation therapy and chemotherapy for pancreatic cancer. The patient has pancreatic mass and gallbladder distention, may be the cause of the pain. Stent is placed. Pancreatic mass compared to the previous scan is appreciated. Mild to moderate lymphadenopathy. Gastrointestinal and deep vein thrombosis. HIDA scan positive . According to Dr. Pittman, no surgery indicated at this time. Send the patient back to [facility]. Continue chemotherapy and radiation therapy. We will repeat labs there. We will follow up. Michelle Castillo MD cc: [id number] TT: 03/12/2017 08:31:54 en MTDD
== END 2017-03-02 22:18 | DRG 207 ==
LOC: ED 12:10 → ERH 18:02 → 5RNO 02-28 00:34
PROVIDERS: ADMIT Internal Medicine; ATTEND Internal Medicine
DX: K81.0 Acute cholecystitis (principal); C25.0 Malignant neoplasm of head of pancreas; A52.17 General paresis; K82.0 Obstruction of gallbladder; E11.65 Type 2 diabetes mellitus with hyperglycemia; F02.80 Dementia in other diseases classified elsewhere, unspecified severity, without behavioral disturbance, psychotic disturbance, mood disturbance, and anxiety; D64.9 Anemia, unspecified; E78.2 Mixed hyperlipidemia; E87.6 Hypokalemia; F20.0 Paranoid schizophrenia; J45.909 Unspecified asthma, uncomplicated; K59.00 Constipation, unspecified; G40.909 Epilepsy, unspecified, not intractable, without status epilepticus; F31.9 Bipolar disorder, unspecified; R59.1 Generalized enlarged lymph nodes; Z79.4 Long term (current) use of insulin; Z51.0 Encounter for antineoplastic radiation therapy

== ENCOUNTER 2017-05-30 22:49 | Inpatient (IN) | payer MEDICAID ==
--- NOTE | 2017-05-30 23:08 | ED PDOC ---
Arrival/HPI - General Chief Complaint: Seizure Time Seen by Provider: 05/30/17 22:54 Historian: Long-Term, EMS - History of Present Illness Narrative History of Present Illness (Text): 05/30/17 23:07 John Saha is a 56 year old male, whose past medical history includes pancreatic cancer, hypertension, diabetes, dementia, neurosyphilist, seizures, asthma, and psychosis/schizophrenia, who presents to the Emergency department sent [facility] for intermittent seizures today. Patient is drowsy but arousable and angry when questioned. Limited HPI and ROS due to patient's dementia. PMD: Dr. Castillo Time/Duration: Other (today) Symptom Onset: Gradual Symptom Course: Unchanged Activities at Onset: Light Context: Home ([facility]) Past Medical History - Provider Review Nursing Documentation Reviewed: Yes - Infectious Disease Hx of Infectious Diseases: None - Tetanus Immunization Tetanus Immunization: Unknown - Cardiac Hx Hypertension: Yes - Pulmonary Hx Asthma: Yes Hx Tuberculosis: No - Neurological Hx Neurological Disorder: Yes Hx Dementia: Yes Hx Seizures: Yes - HEENT Hx HEENT Disorder: No - Renal Hx Renal Disorder: No - Endocrine/Metabolic Hx Diabetes Mellitus Type 1: Yes Hx Hypothyroidism: Yes - Hematological/Oncological Hx Blood Disorders: No Hx Cancer: No - Integumentary Hx Dermatological Disorder: No - Musculoskeletal/Rheumatological Hx Musculoskeletal Disorders: No Hx Falls: No - Gastrointestinal Other/Comment: pancreatic CA - Genitourinary/Gynecological Hx Genitourinary Disorders: No Hx Sexually Transmitted Diseases: No - Psychiatric Hx Psychophysiologic Disorder: Yes Hx Substance Use: No Other/Comment: DEMENTIA - Past Surgical History Past Surgical History: Unable to Obtain - Surgical History Hx Orthopedic Surgery: Yes (L dislocation) - Anesthesia Hx Anesthesia: Yes - Suicidal Assessment Feels Threatened In Home Enviroment: Yes Family/Social History - Physician Review Nursing Documentation Reviewed: Yes Family/Social History: Unknown Family HX Smoking Status: Smoker Currrent Status Unknown Hx Alcohol Use: No Hx Substance Use: No Hx Substance Use Treatment: No Allergies/Home Meds Allergies/Adverse Reactions: Allergies No Known Allergies Allergy (Verified 05/31/17 14:47) Home Medications: Home Meds Medication Instructions Recorded Confirmed cloZAPine [Clozaril] 300 mg PO HS 03/15/16 05/31/17 cloZAPine [Clozaril] 200 mg PO QAM 01/02/17 05/31/17 Insulin Regular [HumuLIN R] 8 units SC ACHS 01/20/17 05/31/17 Lidocaine 5% [Lidoderm] 1 patch TP DAILY 05/31/17 05/31/17 Ondansetron [Zofran] 4 mg PO PRN PRN 05/31/17 05/31/17 traZODone [trazODONE HYDROCHLORIDE] 50 mg PO HS 05/31/17 05/31/17 Review of Systems - Review of Systems Systems not reviewed;Unavailable: Dementia Neurological: Seizure Physical Exam Vital Signs Reviewed: Yes Vital Signs Pulse Resp BP Pulse Ox 05/30/17 23:28 76 18 105/62 95 Temperature: Afebrile Blood Pressure: Normal Pulse: Regular Respiratory Rate: Normal Appearance: Positive for: Well-Appearing, Comfortable Pain Distress: None Mental Status: Positive for: other (Drowsy but arousable) - Systems Exam Head: Present: Atraumatic, Normocephalic Pupils: Present: PERRL Extroacular Muscles: Present: EOMI Conjunctiva: Present: Normal Mouth: Present: Moist Mucous Membranes Neck: Present: Normal Range of Motion. No: Meningeal Signs, MIDLINE TENDERNESS , Paraspinal Tenderness Respiratory/Chest: Present: Clear to Auscultation, Good Air Exchange. No: Respiratory Distress, Accessory Muscle Use Cardiovascular: Present: Regular Rate and Rhythm, Normal S1, S2. No: Murmurs Abdomen: Present: Normal Bowel Sounds. No: Tenderness, Distention, Peritoneal Signs Upper Extremity: Present: Normal Inspection. No: Cyanosis, Edema Lower Extremity: Present: Normal Inspection. No: Edema Neurological: Present: GCS=15, CN II-XII Intact, Normal Sensory Function, Normal Cerebellar Funct Skin: Present: Warm, Dry, Normal Color. No: Rashes Psychiatric: Present: Other (Drowsy but arousable, angry when questioned) Medical Decision Making ED Course and Treatment: 05/30/17 23:07 Impression: 56 year old male sent from [facility] for intermittent seizures. Plan: -- CT Head w/o contrast -- EKG -- Chest X-ray -- Labs, cardiac enzymes, dilantin level -- Reassess and disposition Prior Visits: Notes and results from previous visits were reviewed. Progress Notes: Reviewed EKG, NSR at 81 bpm. Septal infarct. Non-specific ST/T wave changes. 05/31/17 00:34 Reviewed radiology, Chest X-ray shows no acute processes. 05/31/17 06:00 Please refer to downtime documentation. - Lab Interpretations Lab Results: 05/31/17 00:00 05/31/17 00:00 Lab Results 05/31/17 00:26: POC Glucose (mg/dL) 163 H 05/31/17 00:00: Phenytoin 17 05/31/17 00:00: WBC 4.7 D, RBC 3.94, Hgb 12.2 L, Hct 35.7 L, MCV 90.6, MCH 31.0 , MCHC 34.2, RDW 13.7, Plt Count 278, MPV 9.6 05/31/17 00:00: Sodium 140, Potassium 4.0, Chloride 107, Carbon Dioxide 26, Anion Gap 11, BUN 7, Creatinine 0.3 L, Est GFR ( Amer) > 60, Est GFR (Non -Af Amer) > 60, Random Glucose 141 H, Calcium 8.5, Total Bilirubin 1.1, AST 80 H , ALT 70 H, Alkaline Phosphatase 650 H, Lactate Dehydrogenase 593, Total Creatine Kinase 52, Troponin I < 0.01 D, Total Protein 7.1, Albumin 3.7, Globulin 3.4, Albumin/Globulin Ratio 1.1 05/31/17 00:00: PT 11.0, INR 1.02, APTT 27.9 05/30/17 23:03: POC Glucose (mg/dL) 157 H I have reviewed the lab results: Yes - RAD Interpretation Radiology Orders: 05/30/17 23:07 HEAD W/O CONTRAST [CT] Stat 05/30/17 23:09 CHEST PORTABLE [RAD] Stat Scanner Supervisor: ED Physician - EKG Interpretation Interpreted by ED Physician: Yes Type: 12 lead EKG - Medication Orders Current Medication Orders: Clozapine (Clozaril) 200 mg PO QAM AVA PRN Reason: Protocol Last Admin: 05/31/17 09:26 Dose: Not Given Non-Admin Reason: Patient Refused Clozapine (Clozaril) 300 mg PO HS AVA PRN Reason: Protocol Donepezil HCl (Aricept) 10 mg PO DAILY AVA Last Admin: 05/31/17 09:26 Dose: Not Given Non-Admin Reason: Patient Refused Phenytoin Sodium (Dilantin) 200 mg PO HS AVA Phenytoin Sodium (Dilantin) 300 mg PO DAILY AVA Last Admin: 05/31/17 09:26 Dose: Not Given Non-Admin Reason: Patient Refused Discontinued Medications Barium Sulfate (Readi-Cat 2) Confirm Administered Dose 900 ml PO .STK-MED ONE Stop: 05/31/17 14:11 Iohexol (Omnipaque 350 100 Ml) Confirm Administered Dose 350 mg .ROUTE .STK-MED ONE Stop: 05/31/17 16:20 Pneumococcal Polyvalent Vaccine (Pneumovax 23 Vaccine) 0.5 ml IM .ONCE ONE Stop: 05/31/17 16:33 - Scribe Statement The provider has reviewed the documentation as recorded by the Last Banerjee Provider Scribe Attestation: All medical record entries made by the Phoebeiblenard were at my direction and personally dictated by me. I have reviewed the chart and agree that the record accurately reflects my personal performance of the history, physical exam, medical decision making, and the department course for this patient. I have also personally directed, reviewed, and agree with the discharge instructions and disposition. Disposition/Present on Arrival - Present on Arrival Any Indicators Present on Arrival: No History of DVT/PE: No History of Uncontrolled Diabetes: Yes Urinary Catheter: No History of Decub. Ulcer: No History Surgical Site Infection Following: None - Disposition Have Diagnosis and Disposition been Completed?: Yes Diagnosis: Seizure Disposition: HOSPITALIZED Disposition Time: 02:40 Patient Problems: Current Active Problems Problem Status Onset Seizure Acute Condition: STABLE
[2017-05-31 00:56] LABS: ALB/GLOB RATIO 1.1 (1.1-1.8); ALBUMIN 3.7 g/dL (3.0-4.8); ALT/SGPT 70 U/L (7-56); AST/SGOT 80 U/L (15-59); BLOOD UREA NITROGEN 7 mg/dL (7-21); CALCIUM 8.5 mg/dL (8.4-10.5); GFR AFRICAN-AMERICAN > 60; GFR NON-AFRICAN AMERICAN > 60
[2017-05-31 01:04] LABS: HEMOGLOBIN 12.2 gm/dL (14.0-18.0); MEAN CELL VOLUME 90.6 fL (80.0-105.0); MEAN CORPUSCULAR HGB CONC 34.2 g/dl (31.0-37.0); MEAN PLATELET VOLUME 9.6 fl (7.0-11.0); RBC 3.94 10^6/uL (3.5-6.1); RED CELL DISTRIBUTION WIDTH 13.7 % (11.5-14.5); WHITE BLOOD COUNT 4.7 10^3/ul (4.5-11.0)
[2017-05-31 01:12] LABS: INR 1.02 (0.93-1.08); PARTIAL THROMBOPLASTIN TIME 27.9 Seconds (23.7-30.8)
[2017-05-31 05:19] LABS: TROPONIN I < 0.01 ng/mL
--- NOTE | 2017-05-31 05:30 | CT ---
EXAM: CT Head Without Intravenous Contrast CLINICAL HISTORY: 56 years old, male; Signs and symptoms; Other: Seizure TECHNIQUE: Axial computed tomography images of the head/brain without intravenous contrast. This CT exam was performed using one or more of the following dose reduction techniques: automated exposure control, adjustment of the mA and/or kV according to patient size, and/or use of iterative reconstruction technique. EXAM DATE/TIME: 05/30/2017 11:07 PM COMPARISON: CT - HEAD W/O CONTRAST 04/18/2016 9:31:09 PM FINDINGS: Brain: There is mild prominence of of sulci gyri and ventricles. There is no midline shift. There is decreased attenuation in periventricular white matter. There is an old lacunar infarct in the right basal ganglia. There are no focal masses. There are no focal hemorrhages. Felton-white differentiation is visualized. Ventricles: See above Bones: Cranial vault is intact. Soft tissues: unremarkable Sinuses: There is no acute sinusitis. Ears and mastoids: Middle ears and mastoids are unremarkable. Orbits: Orbital contents are unremarkable. IMPRESSION: No acute intracranial abnormality
--- NOTE | 2017-05-31 07:23 | RAD ---
HISTORY: seizure COMPARISON: 01/01/2017 FINDINGS: LUNGS: Pulmonary vasculature and overall interstitial lung markings -top-normal. Slightly shallow lung volumes No peripheral consolidation. Left infrahilar bronchovascular markings and/or eft infrahilar peribronchial thickening (comparison difficult given different its in technique) PLEURA: No significant pleural effusion identified, no pneumothorax apparent. CARDIOVASCULAR: Cardiomegaly -pulmonary vasculature top-normal OSSEOUS STRUCTURES: Cervical thoracic lumbar spondylosis VISUALIZED UPPER ABDOMEN: Normal. OTHER FINDINGS: None. IMPRESSION: No interval peripheral consolidation/ infiltrate . Cardiomegaly -somewhat pulmonary central vascular and interstitial lung marking prominence is are closed top-normal.
--- NOTE | 2017-05-31 09:49 | CP.PCM.CON ---
<LisethesterBernadette nicholas - Last Filed: 05/31/17 10:48> History of Present Illness - History of Present Illness History of Present Illness: PGY-2 neurology consult note for Dr Gambino. Reason for consult: breakthrough seizures. Patient is a 56 y/o with PMH of pancreatic cancer s/p chemo and radiation, htn, DM, dementia, neurosyphylis, seizure disorders, asthma, schizophrenia, from group home, h/o old lacunar infarct [place] [facility] seizure like episodes from group home. Spoke to patient using interpreter for the deaf named [place] # [id number]. Patient appears very guarded, responds no when I asked him questions. Responded no to h/o seizures, seizure s at group home, headache, dizziness, cp or sob. As per nurse, no seizures since admission. 12 point ROS and HPI limited due to mental status. Review of Systems - Review of Systems Systems not reviewed;Unavailable: Altered Mental Status Past Patient History - Infectious Disease Hx of Infectious Diseases: None - Tetanus Immunizations Tetanus Immunization: Unknown - Past Social History Smoking Status: Smoker Currrent Status Unknown Home Situation {Lives}: Detention - CARDIAC Hx Hypertension: Yes - PULMONARY Hx Asthma: Yes Hx Tuberculosis: No - NEUROLOGICAL Hx Neurological Disorder: Yes Hx Dementia: Yes Hx Seizures: Yes - HEENT Hx HEENT Problems: No - RENAL Hx Chronic Kidney Disease: No - ENDOCRINE/METABOLIC Hx Diabetes Mellitus Type 1: Yes Hx Hypothyroidism: Yes - HEMATOLOGICAL/ONCOLOGICAL Hx Blood Disorders: No Hx Cancer: No - INTEGUMENTARY Hx Dermatological Problems: No - MUSCULOSKELETAL/RHEUMATOLOGICAL Hx Musculoskeletal Disorders: No Hx Falls: No - GASTROINTESTINAL Other/Comment: pancreatic CA - GENITOURINARY/GYNECOLOGICAL Hx Genitourinary Disorders: No Hx Sexually Transmitted Disorders: No - PSYCHIATRIC Hx Psychophysiologic Disorder: Yes Hx Substance Use: No Other/Comment: DEMENTIA - SURGICAL HISTORY Hx Orthopedic Surgery: Yes (L dislocation) - ANESTHESIA Hx Anesthesia: Yes Meds Allergies/Adverse Reactions: Allergies Allergy/AdvReac Type Severity Reaction Status Date / Time No Known Allergies Allergy Verified 02/28/17 00:39 - Medications Medications: Current Medications Clozapine (Clozaril) 200 mg PO QAM [facility] PRN Reason: Protocol Last Admin: 05/31/17 09:26 Dose: Not Given Clozapine (Clozaril) 300 mg PO HS [facility] PRN Reason: Protocol Donepezil HCl (Aricept) 10 mg PO DAILY [facility] Last Admin: 05/31/17 09:26 Dose: Not Given Phenytoin Sodium (Dilantin) 200 mg PO HS COUNT INCLUDES THE [facility] Phenytoin Sodium (Dilantin) 300 mg PO DAILY COUNT INCLUDES THE [facility] Last Admin: 05/31/17 09:26 Dose: Not Given Physical Exam - Constitutional Appears: No Acute Distress, Chronically Ill - Head Exam Head Exam: ATRAUMATIC, NORMAL INSPECTION, NORMOCEPHALIC - Eye Exam Eye Exam: EOMI, Normal appearance, PERRL. absent: Scleral icterus Pupil Exam: NORMAL ACCOMODATION, PERRL - ENT Exam ENT Exam: Mucous Membranes Dry - Neck Exam Neck exam: Positive for: Normal Inspection - Respiratory Exam Respiratory Exam: Clear to Auscultation Bilateral, NORMAL BREATHING PATTERN. absent: Decreased Breath Sounds, Rhonchi, Wheezes, Respiratory Distress, Stridor - Cardiovascular Exam Cardiovascular Exam: REGULAR RHYTHM, +S1, +S2 - GI/Abdominal Exam GI & Abdominal Exam: Normal Bowel Sounds, Soft. absent: Distended, Tenderness - Extremities Exam Extremities exam: Positive for: normal inspection - Back Exam Back exam: NORMAL INSPECTION - Neurological Exam Neurological exam: Alert, CN II-XII Intact, Normal Gait, Reflexes Normal Additional comments: Alert and awake, a&ox2 Flat effect not interested in talking no pronator drift Normal finger to nose. Negative babinski Reflex 2+ throughout. - Psychiatric Exam Psychiatric exam: Flat Affect - Skin Skin Exam: Normal Color Results - Vital Signs Recent Vital Signs: Last Vital Signs Temp Pulse 76 05/30/17 23:28 Resp 18 05/30/17 23:28 BP 105/62 05/30/17 23:28 Pulse Ox 95 05/30/17 23:28 - Labs Result Diagrams: 05/31/17 00:00 05/31/17 00:00 Assessment & Plan - Assessment and Plan (Free Text) Assessment: Patient is a 56 y/o with PMH of pancreatic cancer s/p chemo and radiation, htn, DM, dementia, neurosyphylis, seizure disorders, asthma, schizophrenia, from group home, h/o old lacunar infarct sent [place] [facility] [place] [facility] to seizure like episode while in group home. Ct head with no acute findings Plan: - Continue with home dose of Dilantin, 200 mg hs and 300 mg daily. - Seizure and fall precaution - Hydrate - keep SBP between 130-140s. - Patient is stable neurologically - Thank you for consulting Dr Gambino. Patient seen, examined, discussed with Dr Gambino. - Date & Time Date: 05/31/17 Time: 10:50 <[place] Gambino - Last Filed: 05/31/17 14:14> Meds - Medications Medications: Current Medications Clozapine (Clozaril) 200 mg PO QAM [facility] PRN Reason: Protocol Last Admin: 05/31/17 09:26 Dose: Not Given Clozapine (Clozaril) 300 mg PO HS [facility] PRN Reason: Protocol Donepezil HCl (Aricept) 10 mg PO DAILY [facility] Last Admin: 05/31/17 09:26 Dose: Not Given Phenytoin Sodium (Dilantin) 200 mg PO HS [facility] Phenytoin Sodium (Dilantin) 300 mg PO DAILY COUNT [facility]CLUDES [facility] Last Admin: 05/31/17 09:26 Dose: Not Given Results - Vital Signs Recent Vital Signs: Last Vital Signs Temp 98.7 F 05/31/17 12:00 Pulse 79 05/31/17 12:00 Resp 18 05/31/17 12:00 BP 87/49 L 05/31/17 12:00 Pulse Ox 95 05/30/17 23:28 - Labs Result Diagrams: 05/31/17 00:00 05/31/17 00:00 Attending/Attestation - Attestation I have personally seen and examined this patient.: Yes I have fully participated in the care of the patient.: Yes I have reviewed all pertinent clinical information: Yes Notes (Text): 05/31/17 14:13 breakthrough seizure sec to dehydration and poor sleep hygiene.
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
[2017-05-31] MEDS ORDERED: Barium Sulfate Susp 2.1% w/v, 2.0% w/w 450 mL Bottle PO ONE (14:10)
[2017-05-31] MEDS ORDERED: Iohexol 350 MG/100 ML VIAL ONE (16:19)
[2017-05-31 16:32] VITALS: BMI 24.3
[2017-05-31] MEDS ORDERED: Pneumococcal 23-Valent Vaccine IM ONE (16:32)
--- NOTE | 2017-05-31 17:37 | CARD ---
APPROVED REPORT EKG Measurement Heart [id number] <Conclusion> Normal sinus rhythm Low voltage QRS Septal infarct, age undetermined Abnormal ECG
--- NOTE | 2017-05-31 17:39 | CT ---
PROCEDURE: CT abdomen and pelvis dated 05/31/2017 HISTORY: Pancreatic carcinoma w/biliary metal stent, elevated lft COMPARISON: Comparison made with prior CT scan and pelvis 02/27/2017 TECHNIQUE: Contiguous axial images of the abdomen and pelvis. Oral contrast was administered. No IV contrast given. Coronal and Sagittal reformats generated. Radiation dose: Total exam DLP = 402.53 mGy-cm. This CT exam was performed using one or more of the following dose reduction techniques: Automated exposure control, adjustment of the mA and/or kV according to patient size, and/or use of iterative reconstruction technique. Contrast dose: 94 cc Omnipaque 350 contrast material FINDINGS: LOWER THORAX: Mild bibasilar atelectasis. No evidence of basilar pneumothorax or effusion. The Heart is enlarged. No significant pericardial effusion Small hiatal hernia with slight wall thickening of the distal esophagus that could be due to protrusion of gastric mucosa. Possibility of esophagitis not excluded. LIVER: The liver exhibits normal size measuring approximately 13.4 cm in CC dimension. Liver exhibits heterogeneous with scattered areas of ill-defined low-attenuation that could represent metastatic lesions. . . In addition, there are several scattered bubbles air which are felt to be within the biliary tree. The mild central intrahepatic biliary ductal dilatation. . GALLBLADDER AND BILE DUCTS: Gallbladder is physiologically distended. Minimal gallbladder wall thickening nonspecific. In situ common bile duct stent which contains hyperdense intraluminal debris within the mid and distal aspect of the stent. Findings could be secondary to partial occlusion of the stent. Superinfection also cannot be excluded. PANCREAS: The re- demonstrated is an enlarged heterogeneous mass at the level of the pancreatic head surrounding the extent consistent with this patient's history of pancreatic carcinoma. There is atrophic changes of the mid body and tail with dilatation of the pancreatic duct. . There appears to be adenopathy surround the pancreatic head with multiple small nodes in the and probable core portacaval adenopathy SPLEEN: Spleen appears borderline/ mildly enlarged measuring approximately 12.5 cm in AP dimension. Re- demonstrated is a small sub cm low-attenuation focus along the anteromedial aspect of the splenic parenchyma too small to characterize though this could represent a tiny cyst or hemangioma the was visible on the prior study. ADRENALS: Slightly nodular appearing left adrenal gland. Right adrenal gland unremarkable KIDNEYS AND URETERS: The kidneys demonstrate symmetric nephrograms. No evidence of nephrolithiasis or hydronephrosis. The infiltration changes seen in the perinephric fat nonspecific. No obvious renal masses seen. . Several tiny low-attenuation foci scattered throughout both kidneys likely representing small cysts. BLADDER: Urinary bladder is incompletely distended which may account for slight thick-walled appearance. The possibility of a cystitis not excluded. The REPRODUCTIVE: Prostate gland measures approximately 3.9 cm in transverse dimension APPENDIX: . The appendix which appears to be filled with debris best seen on axial image number [id number]. No periappendiceal inflammatory changes. The BOWEL: Evaluation of the bowel is limited due to incomplete opacification. The stomach exhibits on irregular thick-walled appearance. . There is thickening of the wall of the duodenum as well. These findings are nonspecific though could represent gastritis/duodenitis however other intrinsic/ invasive wall lesion including direct tumor spread from pancreatic lesion not excluded. . Visualized loops of small bowel exhibit normal contour and caliber. No evidence of acute mechanical small bowel obstruction. Moderate amount of stool is seen within the cecum and at ascending as well as transverse colon consistent with fecal retention/ constipation. The short segment of the sigmoid colon exhibits mild wall thickening which is likely due to incomplete distention/peristalsis and adherent unopacified adherent stool however possibility of inflammatory process or other intrinsic wall lesion not excluded though less likely in the absence of a pertinent clinical history. PERITONEUM: Unremarkable. No fluid collection. No free air. LYMPH NODES: As above. No evidence of abdominal aortic VASCULATURE: No evidence of abdominal aortic aneurysm. BONES: Mild multilevel degenerative spondylosis of the thoracic spine. There are no acute compression fractures nor retropulsed fragments. . OTHER FINDINGS: None. IMPRESSION: The liver exhibits heterogeneous attenuation with multiple ill-defined areas of low attenuation which may represent metastatic disease. . Consider followup PET scan if further evaluation is required. Scattered bubbles of air within in what is felt to represent the biliary tree re- demonstrated is an pancreatic head mass with what appears represent surrounding adenopathy and at in adenopathy in the portacaval region and retroperitoneum. There is debris within the mid and distal aspect of the common bile duct stent; rule out partial or complete occlusion. The pancreatic body and tail remain atrophic with dilatation of the pancreatic duct. . There is wall thickening of the stomach and duodenum which could be due to gastritis/duodenitis however other invasive of intrinsic/invasive wall lesion including directs tumor spread not excluded. Mild splenomegaly with small low-attenuation focus anterior mid medial aspect splenic parenchyma unchanged. Multiple small low-attenuation foci scattered throughout both kidneys likely representing cysts. Findings consistent with constipation. Mild wall thickening of a short segment sigmoid colon likely due to incomplete distention, peristalsis and under opacified adherent stool however possibility of inflammatory process or other intrinsic/ invasive wall lesion cannot be completely excluded though less likely in the absence of a pertinent clinical history. .
[2017-06-01 06:23] LABS: HEMOGLOBIN 10.6 gm/dL (14.0-18.0); MEAN CELL VOLUME 90.4 fL (80.0-105.0); MEAN CORPUSCULAR HEMOGLOBIN 29.9 pg (25.0-35.0); MEAN PLATELET VOLUME 9.1 fl (7.0-11.0); RBC 3.55 10^6/uL (3.5-6.1); RED CELL DISTRIBUTION WIDTH 13.6 % (11.5-14.5); WHITE BLOOD COUNT 5.2 10^3/ul (4.5-11.0)
[2017-06-01 06:45] LABS: % IRON SATURATION 29 % (20-55); IRON 50 ug/dL (45-180); TOTAL IRON BINDING CAPACITY 171 ug/dL (261-462)
[2017-06-01 07:09] LABS: ALB/GLOB RATIO 1.1 (1.1-1.8); ALBUMIN 3.4 g/dL (3.0-4.8); ALT/SGPT 71 U/L (7-56); AST/SGOT 74 U/L (15-59); BILIRUBIN,DIRECT 0.7 mg/dL (0.0-0.4); BLOOD UREA NITROGEN 8 mg/dL (7-21); CALCIUM 8.2 mg/dL (8.4-10.5); GFR AFRICAN-AMERICAN > 60; GFR NON-AFRICAN AMERICAN > 60; HDL CHOLESTEROL 47 mg/dL (29-60)
[2017-06-01 07:22] LABS: LDL CHOLESTEROL 60 mg/dL (0-129)
--- NOTE | 2017-06-01 07:23 | HP ---
CHIEF COMPLAINT: Seizures. HISTORY OF PRESENT ILLNESS: The patient is a 56-year-old male with past medical history of pancreatic cancer, hypertension, diabetes mellitus, dementia, neurosyphilis, seizure, asthma, psychosis, schizophrenia, came to the emergency room because he had seizures in the [facility], [facility]. When the patient was in the ER, he was drowsy, but arousable, looked angry when questioned, there was language problem also. The patient got radiation therapy and chemotherapy for pancreatic cancer. Now, I saw the patient in the telemetry, improved. The patient is seen by the neurologist and GI due to pancreatic cancer. PAST MEDICAL HISTORY: Asthma, hypertension, dementia, seizures, diabetes type 1, hypothyroidism, history of neurosyphilis, pancreatic CA, history of orthopedic surgery. FAMILY HISTORY: Father and mother noncontributory. SOCIAL HISTORY: Never smoked. No drug, no ethanol. ALLERGIES: The patient is not allergic to any medications. HOME MEDICATIONS: Clozaril, insulin, Lidoderm, Zofran, trazodone. REVIEW OF SYSTEMS: The patient is seen and examined on the bedside in the telemetry. Looking comfortable. No nausea, vomiting, or diarrhea. No hematuria, no hematochezia. No swelling of the leg. No chest pain, no palpitation. No headache, no dizziness. No shortness of breath. PHYSICAL EXAMINATION VITAL SIGNS: Temperature 100.7, T-Max 98.7, pulse 86, blood pressure 91/52, respiratory rate 20. HEENT: Head: Normocephalic and atraumatic. Eyes: PERRLA. Extraocular muscles intact. Conjunctivae clear. Nose patent. Mucous membranes moist. NECK: Supple. No carotid bruits. No JVD or thyromegaly. CHEST: Bilaterally symmetrical. HEART: S1 and S2 positive. LUNGS: Clear to auscultation. ABDOMEN: Soft. Bowel sounds present. No organomegaly. EXTREMITIES: No edema. No cyanosis. NEUROLOGIC: The patient is awake and alert. Moving all four extremities. No focal deficit. MEDICATIONS: Aricept, Clozaril, Dilantin. LABORATORY DATA: White blood cells 4.7, hemoglobin 12.2, hematocrit 35.7, platelets 278. Sodium 140, potassium 4.0, BUN 7, creatinine 0.3. Glucose 153, random glucose 141. AST 80, ALT 7, alkaline phosphatase 650 ASSESSMENT AND PLAN: The patient is a 56-year-old male with anemia, diabetes mellitus, not controlled; abnormal liver function test. Dilantin level 17 within normal limits. CAT scan of the abdomen and pelvis done. According to Dr. Christian Workman, mild wall thickening of the short segment, sigmoid colon likely due to incomplete distention, peristalsis, under opacified adherent stool, however, possibility of inflammatory process or other increasing invasive wall lesions cannot be completely excluded, though less likely in the absence of the patient's clinical history. I appreciate Vale Lo, nurse practitioner's notes, they want to see the trend of liver function tests. Dr. Gambino saw the patient. According to him, the patient has breakthrough seizures. CAT scan of the abdomen was reviewed by me. GI and DVT prophylaxis. Repeat labs. Seizure precautions. We will follow up. Michelle Castillo MD
[2017-06-01] MEDS ORDERED: Potassium Chloride 40 mEq/30 ml LIQ UD PO ONE (11:00)
--- NOTE | 2017-06-01 12:26 | CP.PCM.PN ---
<Vale Lo - Last Filed: 06/01/17 12:26> Subjective - Date & Time of Evaluation Date of Evaluation: 06/01/17 Time of Evaluation: 08:50 - Subjective Subjective: S&E at bedside, no acute overnight events reported. Denies pain, N/V or abdominal pain. No seizure activity reported. Had ct scan A&P yesterday, report reviewed; multiple ill defined areas in the liver, ? metastatic disease, redemonstrate pancreatic head mass, w/ adenopathy, there is debris within the mid and distal aspect of the CBD stent, ? partial or complete occlusion. Objective - Vital Signs/Intake and Output Vital Signs (last 24 hours): Temp Pulse Resp BP Pulse Ox 98.6 F 93 H 20 110/69 96 06/01/17 06:00 06/01/17 11:03 06/01/17 06:00 06/01/17 06:00 06/01/17 06:00 - Medications Medications: Current Medications Clozapine (Clozaril) 200 mg PO QAM [facility] PRN Reason: Protocol Last Admin: 06/01/17 09:53 Dose: 200 mg Clozapine (Clozaril) 300 mg PO HS [facility] PRN Reason: Protocol Last Admin: 05/31/17 21:12 Dose: 300 mg Donepezil HCl (Aricept) 10 mg PO DAILY [facility] Last Admin: 06/01/17 09:53 Dose: 10 mg Famotidine (Pepcid) 40 mg PO HS [facility] Phenytoin Sodium (Dilantin) 200 mg PO HS [facility] Last Admin: 05/31/17 21:12 Dose: 200 mg Phenytoin Sodium (Dilantin) 300 mg PO DAILY [facility] Last Admin: 06/01/17 09:54 Dose: 300 mg - Labs Labs: 06/01/17 05:40 06/01/17 05:40 PT 11.0 Seconds (9.9-11.8) 05/31/17 00:00 INR 1.02 (0.93-1.08) 05/31/17 00:00 APTT 27.9 Seconds (23.7-30.8) 05/31/17 00:00 - Constitutional Appears: No Acute Distress - Head Exam Head Exam: NORMOCEPHALIC - Eye Exam Eye Exam: Normal appearance. absent: Scleral icterus - ENT Exam ENT Exam: Mucous Membranes Moist - Neck Exam Neck Exam: Normal Inspection - Respiratory Exam Respiratory Exam: NORMAL BREATHING PATTERN. absent: Respiratory Distress - Cardiovascular Exam Cardiovascular Exam: +S1, +S2 - GI/Abdominal Exam GI & Abdominal Exam: Soft, Normal Bowel Sounds. absent: Guarding, Tenderness, Rebound - Extremities Exam Extremities Exam: Normal Capillary Refill. absent: Calf Tenderness, Pedal Edema - Neurological Exam Neurological Exam: Alert, Awake, Oriented x3 - Skin Skin Exam: Dry, Warm Assessment and Plan - Assessment and Plan (Free Text) Assessment: ASSESSMENT: Seizures Elevated LFT, r/o stent obstruction, r/o medication induced, ? 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 Guerrero. <Harjeet Guerrero V - Last Filed: 06/01/17 23:34> Objective - Vital Signs/Intake and Output Vital Signs (last 24 hours): Temp Pulse Resp BP Pulse Ox 97.4 F L 78 18 82/50 L 98 06/01/17 16:00 06/01/17 16:00 06/01/17 16:00 06/01/17 16:00 06/01/17 16:00 Intake and Output: 06/01/17 06/02/17 18:59 06:59 Intake Total 420 Balance 420 - Medications Medications: Current Medications Clozapine (Clozaril) 200 mg PO QAM [facility] PRN Reason: Protocol Last Admin: 06/01/17 09:53 Dose: 200 mg Clozapine (Clozaril) 300 mg PO HS [facility] PRN Reason: Protocol Last Admin: 06/01/17 22:20 Dose: 300 mg Donepezil HCl (Aricept) 10 mg PO DAILY [facility] Last Admin: 06/01/17 09:53 Dose: 10 mg Famotidine (Pepcid) 40 mg PO HS [facility] Last Admin: 06/01/17 22:22 Dose: 40 mg Sodium Chloride (Sodium Chloride 0.9%) 1,000 mls @ 60 mls/hr IV .[id number] [facility] Last Admin: 06/01/17 16:55 Dose: 60 mls/hr Phenytoin Sodium (Dilantin) 200 mg PO HS [facility] Last Admin: 06/01/17 22:20 Dose: 200 mg Phenytoin Sodium (Dilantin) 300 mg PO DAILY [facility] Last Admin: 06/01/17 09:54 Dose: 300 mg - Labs Labs: 06/01/17 05:40 06/01/17 05:40 PT 11.0 Seconds (9.9-11.8) 05/31/17 00:00 INR 1.02 (0.93-1.08) 05/31/17 00:00 APTT 27.9 Seconds (23.7-30.8) 05/31/17 00:00 Attending/Attestation - Attestation I have personally seen and examined this patient.: Yes I have fully participated in the care of the patient.: Yes I have reviewed all pertinent clinical information, including history, physical exam and plan: Yes Notes (Text): t
[2017-06-01] MEDS: Sodium Chloride 0.9% 1,000 ML IV SCH (16:55)
[2017-06-01 17:37] LABS: FOLATE 18.1 ng/mL
--- NOTE | 2017-06-02 00:19 | CP.PCM.PN ---
Subjective - Date & Time of Evaluation Date of Evaluation: 06/01/17 Time of Evaluation: 11:00 - Subjective Subjective: S&E at bedside, no acute overnight events reported. Denies pain, N/V or abdominal pain. No seizure activity reported. Had ct scan A&P yesterday, report reviewed; multiple ill defined areas in the liver, ? metastatic disease, redemonstrate pancreatic head mass, w/ adenopathy, there is debris within the mid and distal aspect of the CBD stent, ? partial or complete occlusion. Objective - Vital Signs/Intake and Output Vital Signs (last 24 hours): Temp Pulse Resp BP Pulse Ox 97.4 F L 78 18 82/50 L 98 06/01/17 16:00 06/01/17 16:00 06/01/17 16:00 06/01/17 16:00 06/01/17 16:00 Intake and Output: 06/01/17 06/02/17 18:59 06:59 Intake Total 420 Balance 420 - Medications Medications: Current Medications Clozapine (Clozaril) 200 mg PO QAM [facility] PRN Reason: Protocol Last Admin: 06/01/17 09:53 Dose: 200 mg Clozapine (Clozaril) 300 mg PO HS [facility] PRN Reason: Protocol Last Admin: 06/01/17 22:20 Dose: 300 mg Donepezil HCl (Aricept) 10 mg PO DAILY [facility] Last Admin: 06/01/17 09:53 Dose: 10 mg Famotidine (Pepcid) 40 mg PO HS [facility] Last Admin: 06/01/17 22:22 Dose: 40 mg Sodium Chloride (Sodium Chloride 0.9%) 1,000 mls @ 60 mls/hr IV .[id number] [facility] Last Admin: 06/01/17 16:55 Dose: 60 mls/hr Phenytoin Sodium (Dilantin) 200 mg PO HS [facility] Last Admin: 06/01/17 22:20 Dose: 200 mg Phenytoin Sodium (Dilantin) 300 mg PO DAILY [facility] Last Admin: 06/01/17 09:54 Dose: 300 mg - Labs Labs: 06/01/17 05:40 06/01/17 05:40 PT 11.0 Seconds (9.9-11.8) 05/31/17 00:00 INR 1.02 (0.93-1.08) 05/31/17 00:00 APTT 27.9 Seconds (23.7-30.8) 05/31/17 00:00 Assessment and Plan (1) Seizure Status: Acute (2) Abdominal pain Status: Acute (3) Dementia Status: Acute (4) Elbow dislocation Status: Acute (5) Elevated transaminase level Status: Acute (6) Hip pain Status: Acute (7) Hyperbilirubinemia Status: Acute (8) Pancreatic mass Status: Acute (9) Paranoia (psychosis) Status: Acute (10) Schizoaffective disorder Status: Acute - Assessment and Plan (Free Text) Assessment: Seizures Elevated LFT, r/o stent obstruction, r/o medication induced, ? 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
[2017-06-02 01:26] VITALS: O2SAT 97
[2017-06-02 08:22] LABS: ALBUMIN 3.2 g/dL (3.0-4.8); BILIRUBIN,DIRECT 0.8 mg/dL (0.0-0.4)
[2017-06-02 08:32] VITALS: RESP 20
[2017-06-02] MEDS: Sodium Chloride 0.9% 1,000 ML IV SCH (09:53)
--- NOTE | 2017-06-02 11:31 | CP.PCM.PN ---
<Vale Lo - Last Filed: 06/02/17 11:31> Subjective - Date & Time of Evaluation Date of Evaluation: 06/02/17 Time of Evaluation: 09:00 - Subjective Subjective: Seen and examined at the bedside earlier this morning. Chart was reviewed. Patient is out of bed, no complaint of nausea, vomiting or abdominal pain. No reports of overt GI bleed or acute overnight events. No seizures. Objective - Vital Signs/Intake and Output Vital Signs (last 24 hours): Temp Pulse Resp BP Pulse Ox 98.7 F 81 20 101/66 97 06/02/17 06:00 06/02/17 06:00 06/02/17 06:00 06/02/17 06:00 06/02/17 06:00 Intake and Output: 06/02/17 06/02/17 06:59 18:59 Intake Total 1140 Balance 1140 - Medications Medications: Current Medications Clozapine (Clozaril) 200 mg PO QAM AVA PRN Reason: Protocol Last Admin: 06/02/17 09:52 Dose: 200 mg Clozapine (Clozaril) 300 mg PO HS [facility] PRN Reason: Protocol Last Admin: 06/01/17 22:20 Dose: 300 mg Donepezil HCl (Aricept) 10 mg PO DAILY [facility] Last Admin: 06/02/17 09:50 Dose: 10 mg Famotidine (Pepcid) 40 mg PO HS [facility] Last Admin: 06/01/17 22:22 Dose: 40 mg Sodium Chloride (Sodium Chloride 0.9%) 1,000 mls @ 60 mls/hr IV .[id number] [facility] Last Admin: 06/02/17 09:53 Dose: 60 mls/hr Phenytoin Sodium (Dilantin) 200 mg PO HS [facility] Last Admin: 06/01/17 22:20 Dose: 200 mg Phenytoin Sodium (Dilantin) 300 mg PO DAILY [facility] Last Admin: 06/02/17 09:53 Dose: 300 mg - Labs Labs: 06/01/17 05:40 06/01/17 05:40 PT 11.0 Seconds (9.9-11.8) 05/31/17 00:00 INR 1.02 (0.93-1.08) 05/31/17 00:00 APTT 27.9 Seconds (23.7-30.8) 05/31/17 00:00 - Constitutional Appears: No Acute Distress - Head Exam Head Exam: NORMOCEPHALIC - Eye Exam Eye Exam: Normal appearance - ENT Exam ENT Exam: Mucous Membranes Moist - Respiratory Exam Respiratory Exam: Decreased Breath Sounds, NORMAL BREATHING PATTERN. absent: Rales, Wheezes, Respiratory Distress - Cardiovascular Exam Cardiovascular Exam: +S1, +S2 - GI/Abdominal Exam GI & Abdominal Exam: Soft, Normal Bowel Sounds. absent: Guarding, Tenderness, Rebound - Neurological Exam Neurological Exam: Alert, Awake, Oriented x3 - Skin Skin Exam: Dry, Warm Assessment and Plan - Assessment and Plan (Free Text) Assessment: ASSESSMENT: Seizures Elevated LFT, r/o stent obstruction, r/o medication induced, ? 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 Guerrero. <Harjeet Guerrero V - Last Filed: 06/03/17 00:04> Objective - Vital Signs/Intake and Output Vital Signs (last 24 hours): Temp Pulse Resp BP Pulse Ox 99.9 F H 82 20 104/61 97 06/02/17 16:08 06/02/17 16:08 06/02/17 16:08 06/02/17 16:08 06/02/17 16:08 Intake and Output: 06/02/17 06/03/17 18:59 06:59 Intake Total 480 Balance 480 - Labs Labs: 06/01/17 05:40 06/01/17 05:40 PT 11.0 Seconds (9.9-11.8) 05/31/17 00:00 INR 1.02 (0.93-1.08) 05/31/17 00:00 APTT 27.9 Seconds (23.7-30.8) 05/31/17 00:00 Attending/Attestation - Attestation Notes (Text): t
[2017-06-02 16:09] VITALS: BP 104/61; PULSE 82; TEMP 99.9
--- NOTE | 2017-06-03 00:14 | CP.PCM.DIS ---
Provider - Provider Date of Admission: 05/31/17 22:30 date of discharge 06/02/17 Attending physician: Michelle Castillo MD Time Spent in preparation of Discharge (in minutes): 60 Diagnosis - Discharge Diagnosis (1) Seizure Status: Acute (2) Abdominal pain Status: Acute (3) Dementia Status: Acute (4) Elbow dislocation Status: Acute (5) Elevated transaminase level Status: Acute (6) Hip pain Status: Acute (7) Hyperbilirubinemia Status: Acute (8) Pancreatic mass Status: Acute (9) Paranoia (psychosis) Status: Acute (10) Schizoaffective disorder Status: Acute Hospital Course - Lab Results Lab Results: Most Recent Lab Values WBC 5.2 10^3/ul (4.5-11.0) 06/01/17 05:40 RBC 3.55 10^6/uL (3.5-6.1) 06/01/17 05:40 Hgb 10.6 gm/dL (14.0-18.0) L 06/01/17 05:40 Hct 32.1 % (42.0-52.0) L 06/01/17 05:40 MCV 90.4 fL (80.0-105.0) 06/01/17 05:40 MCH 29.9 pg (25.0-35.0) 06/01/17 05:40 MCHC 33.0 g/dl (31.0-37.0) 06/01/17 05:40 RDW 13.6 % (11.5-14.5) 06/01/17 05:40 Plt Count 258 10^3/uL (120.0-450.0) 06/01/17 05:40 MPV 9.1 fl (7.0-11.0) 06/01/17 05:40 PT 11.0 Seconds (9.9-11.8) 05/31/17 00:00 INR 1.02 (0.93-1.08) 05/31/17 00:00 APTT 27.9 Seconds (23.7-30.8) 05/31/17 00:00 Sodium 139 mmol/L (132-148) 06/01/17 05:40 Potassium 3.4 mmol/L (3.6-5.0) L 06/01/17 05:40 Chloride 103 mmol/L (98-107) 06/01/17 05:40 Carbon Dioxide 27 mmol/L (21-33) 06/01/17 05:40 Anion Gap 12 (10-20) 06/01/17 05:40 BUN 8 mg/dL (7-21) 06/01/17 05:40 Creatinine 0.4 mg/dL (0.5-1.4) L 06/01/17 05:40 Est GFR ( Amer) > 60 06/01/17 05:40 Est GFR (Non-Af Amer) > 60 06/01/17 05:40 POC Glucose (mg/dL) 151 mg/dL (65-110) H 06/01/17 07:38 Random Glucose 151 mg/dL (70-110) H 06/01/17 05:40 Hemoglobin A1c 7.3 % (4.2-6.5) H D 06/01/17 05:40 Calcium 8.2 mg/dL (8.4-10.5) L 06/01/17 05:40 Iron 50 ug/dL (45-180) 06/01/17 05:40 TIBC 171 ug/dL (261-462) L 06/01/17 05:40 % Saturation 29 % (20-55) 06/01/17 05:40 Total Bilirubin 1.3 mg/dL (0.2-1.3) 06/02/17 06:30 Direct Bilirubin 0.8 mg/dL (0.0-0.4) H 06/02/17 06:30 AST 57 U/L (15-59) 06/02/17 06:30 ALT 65 U/L (7-56) H 06/02/17 06:30 Alkaline Phosphatase 568 U/L (38-133) H 06/02/17 06:30 Lactate Dehydrogenase 593 U/L (333-699) 05/31/17 00:00 Total Creatine Kinase 52 U/L (35-230) 05/31/17 00:00 Troponin I < 0.01 ng/mL D 05/31/17 00:00 Total Protein 6.4 g/dL (5.8-8.3) 06/02/17 06:30 Albumin 3.2 g/dL (3.0-4.8) 06/02/17 06:30 Globulin 3.2 gm/dL 06/02/17 06:30 Albumin/Globulin Ratio 1.0 (1.1-1.8) L 06/02/17 06:30 Triglycerides 98 mg/dL (35-160) 06/01/17 05:40 Cholesterol 138 mg/dL (130-200) 06/01/17 05:40 LDL Cholesterol Direct 60 mg/dL (0-129) 06/01/17 05:40 HDL Cholesterol 47 mg/dL (29-60) 06/01/17 05:40 Vitamin B12 873 pg/mL (239-931) 06/01/17 05:40 Folate 18.1 ng/mL 06/01/17 05:40 TSH 3rd Generation 1.06 mIU/mL (0.46-4.68) 06/01/17 05:40 Phenytoin 17 ug/mL (10-20) 05/31/17 00:00 - Hospital Course Hospital Course: Reason for consult: breakthrough seizures. Patient is a 56 y/o with PMH of pancreatic cancer s/p chemo and radiation, htn, DM, dementia, neurosyphylis, seizure disorders, asthma, schizophrenia, from long term, h/o old lacunar infarct sent to [facility] 2nd to seizure like episodes from long term. Spoke to patient using production artist named [place] # [id number]. Patient appears very guarded, responds no when I asked him questions. Responded no to h/o seizures, seizure s at long term, headache, dizziness, cp or sob. As per nurse, no seizures since admission. 12 point ROS and HPI limited due to mental status. Assessment and Plan Seizures Elevated LFT, r/o stent obstruction, r/o medication induced, ? 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 DM schizophrenia PLAN: trend LFT on dilantin neurology following diet as tolerated seizure precautions review ct scan w/ radiologist, no obstruction , ?liver metastasis Discharge Exam - Head Exam Head Exam: NORMOCEPHALIC - Eye Exam Eye Exam: EOMI, Normal appearance, PERRL Pupil Exam: NORMAL ACCOMODATION, PERRL - GI/Abdominal Exam GI & Abdominal Exam: Normal Bowel Sounds - Rectal Exam Rectal Exam: NORMAL INSPECTION - Exam Exam: Circumcision, NORMAL INSPECTION External exam: NORMAL EXTERNAL EXAM Speculum exam: NORMAL SPECULUM EXAM Bimanual exam: NORMAL BIMANUAL EXAM - Neurological Exam Neurological exam: Alert, CN II-XII Intact, Normal Gait, Oriented x3, Reflexes Normal - Psychiatric Exam Psychiatric exam: Normal Affect, Normal Mood - Skin Skin Exam: Dry, Intact, Normal Color, Warm Discharge Plan - Follow Up Plan Condition: STABLE Disposition: TRANSF TO SNF Instructions: Epilepsy (DC), Sepsis (GEN), Acute Abdominal Pain (DC), Acute Abdominal Pain (GEN), Recurrent Seizures in Adults (DC)
== END 2017-06-02 16:31 | DRG 889 ==
LOC: ED 22:49 → ERH 05-31 02:40 → ED 05-31 05:58 → 2RNO 05-31 06:27 → OBSVTOIN 05-31 22:30 → 3RNO 06-01 11:19
PROVIDERS: ADMIT Internal Medicine; ATTEND Internal Medicine
DX: R56.9 Unspecified convulsions (principal); E86.0 Dehydration; C78.7 Secondary malignant neoplasm of liver and intrahepatic bile duct; F25.9 Schizoaffective disorder, unspecified; A52.3 Neurosyphilis, unspecified; F02.80 Dementia in other diseases classified elsewhere, unspecified severity, without behavioral disturbance, psychotic disturbance, mood disturbance, and anxiety; F22 Delusional disorders; I10 Essential (primary) hypertension; M25.559 Pain in unspecified hip; J45.909 Unspecified asthma, uncomplicated; E10.9 Type 1 diabetes mellitus without complications; R79.89 Other specified abnormal findings of blood chemistry; R74.0 Nonspecific elevation of levels of transaminase and lactic acid dehydrogenase [LDH]; R10.9 Unspecified abdominal pain; S53.105D Unspecified dislocation of left ulnohumeral joint, subsequent encounter; Z85.07 Personal history of malignant neoplasm of pancreas; Z86.73 Personal history of transient ischemic attack (TIA), and cerebral infarction without residual deficits; Z87.891 Personal history of nicotine dependence

== ENCOUNTER 2017-06-18 22:10 | Inpatient (IN) | payer MEDICAID ==
[2017-06-18 22:27] VITALS: BMI 24.5
--- NOTE | 2017-06-18 22:27 | ED PDOC ---
Arrival/HPI - General Time Seen by Provider: 06/18/17 22:21 Historian: Patient, [facility], EMS - History of Present Illness Narrative History of Present Illness (Text): 06/18/17 22:27 John Saha is a 56 year old male, whose past medical history includes pancreatic cancer, hypertension, diabetes, dementia, neurosyphilis, seizures, asthma, and psychosis/schizophrenia, who presents to the Emergency department sent from snf status post fall. As per snf, patient fell from a chair earlier tonight. Patient appears confused and is oriented to person/ place. Patient is unable to recall how he fell or if he lost consciousness. Patient reports some neck discomfort. Limited HPI and ROS due to patient's confusion/dementia. PMD: Dr. Janette Castillo Symptom Onset: Gradual Symptom Course: Unchanged Activities at Onset: Light Context: Home (penitentiary) Past Medical History - Provider Review Nursing Documentation Reviewed: Yes - Infectious Disease Hx of Infectious Diseases: None - Tetanus Immunization Tetanus Immunization: Unknown - Cardiac Hx Hypertension: Yes - Pulmonary Hx Asthma: Yes Hx Tuberculosis: No - Neurological Hx Neurological Disorder: Yes Hx Dementia: Yes Hx Seizures: Yes - HEENT Hx HEENT Disorder: No - Renal Hx Renal Disorder: No - Endocrine/Metabolic Hx Diabetes Mellitus Type 1: Yes Hx Hypothyroidism: Yes - Hematological/Oncological Hx Blood Disorders: No Hx Cancer: No - Integumentary Hx Dermatological Disorder: No - Musculoskeletal/Rheumatological Hx Musculoskeletal Disorders: No Hx Falls: No - Gastrointestinal Other/Comment: pancreatic CA - Genitourinary/Gynecological Hx Genitourinary Disorders: No Hx Sexually Transmitted Diseases: No - Psychiatric Hx Psychophysiologic Disorder: Yes Hx Substance Use: No Other/Comment: DEMENTIA - Past Surgical History Past Surgical History: Unable to Obtain - Surgical History Hx Orthopedic Surgery: Yes (L dislocation) - Anesthesia Hx Anesthesia: Yes - Suicidal Assessment Feels Threatened In Home Enviroment: Yes Family/Social History - Physician Review Nursing Documentation Reviewed: Yes Family/Social History: Unknown Family HX Smoking Status: Smoker Currrent Status Unknown Hx Alcohol Use: No Hx Substance Use: No Hx Substance Use Treatment: No Allergies/Home Meds Allergies/Adverse Reactions: Allergies No Known Allergies Allergy (Verified 06/18/17 22:32) Home Medications: Home Meds Medication Instructions Recorded Confirmed cloZAPine [Clozaril] 300 mg PO HS 03/15/16 05/31/17 cloZAPine [Clozaril] 200 mg PO QAM 01/02/17 05/31/17 Insulin Regular [HumuLIN R] 8 units SC ACHS 01/20/17 05/31/17 Lidocaine 5% [Lidoderm] 1 patch TP DAILY 05/31/17 05/31/17 Ondansetron [Zofran Tab] 4 mg PO PRN PRN 05/31/17 05/31/17 traZODone [Desyrel] 50 mg PO HS 05/31/17 05/31/17 Review of Systems - Review of Systems Systems not reviewed;Unavailable: Dementia Constitutional: Other (+fall) Musculoskeletal: Neck Pain Physical Exam Vital Signs Reviewed: Yes Vital Signs Temp Pulse Resp BP Pulse Ox 06/18/17 22:16 98.8 F 80 18 110/60 100 Temperature: Afebrile Blood Pressure: Normal Pulse: Regular Respiratory Rate: Normal Appearance: Positive for: Well-Appearing, Non-Toxic, Comfortable Pain Distress: None Mental Status: Positive for: other (Awake, confused, oriented to person/place) - Systems Exam Head: Present: Atraumatic, Normocephalic Pupils: Present: PERRL Extroacular Muscles: Present: EOMI Conjunctiva: Present: Normal Mouth: Present: Moist Mucous Membranes Neck: Present: Normal Range of Motion. No: Meningeal Signs, MIDLINE TENDERNESS , Paraspinal Tenderness Respiratory/Chest: Present: Clear to Auscultation, Good Air Exchange. No: Respiratory Distress, Accessory Muscle Use Cardiovascular: Present: Regular Rate and Rhythm, Normal S1, S2. No: Murmurs Abdomen: Present: Normal Bowel Sounds. No: Tenderness, Distention, Peritoneal Signs Back: Present: Normal Inspection. No: CVA Tenderness, Midline Tenderness, Paraspinal Tenderness Upper Extremity: Present: Normal Inspection. No: Cyanosis, Edema Lower Extremity: Present: Normal Inspection. No: Edema Neurological: Present: GCS=15, CN II-XII Intact Skin: Present: Warm, Dry, Normal Color. No: Rashes Psychiatric: Present: Alert, Other (Confused). No: Oriented x 3 (Oriented to person/place) Medical Decision Making ED Course and Treatment: 06/18/17 22:27 Impression: 56 year old male brought in from snf s/p fall tonight. Pt confused, unsure how he fell. Pt complaining of of neck pain. Differential Diagnosis included but are not limited to: AMS vs. syncope vs. fall Plan: -- CT Head w/o contrast -- CT Cervical Spine w/o contrast -- EKG -- CXR -- Labs, cardiac enzymes -- Reassess and disposition Prior Visits: Notes and results from previous visits were reviewed. On 05/30/2017, pt was seen in the Emergency department for intermittent seizures. Pt was admitted to the hospital for further evaluation. Progress Notes: Reviewed EKG, NSR at 76 bpm. LAD. Septal infarct. Non-specific ST/T wave changes. 06/19/17 00:33 Reviewed radiology, Chest X-ray shows no acute processes. CT Head shows: No acute intracranial findings. CT Cervical Spine shows: Degenerative disease, without acute fracture. 06/19/17 00:[address] Castillo, who is aware and agrees with plan. Accepts pt in to her service. Pt will go to Telemetry observation for AMS and near syncope. - Lab Interpretations Lab Results: 06/18/17 23:00 06/18/17 23:00 Lab Results 06/18/17 23:00: Phenytoin 14 06/18/17 23:00: WBC 5.6 D, RBC 3.49 L, Hgb 10.3 L, Hct 31.0 L, MCV 88.8, MCH 29.5, MCHC 33.2, RDW 14.6 H, Plt Count 241, MPV 9.0 06/18/17 23:00: Sodium 136, Potassium 3.7, Chloride 100, Carbon Dioxide 27, Anion Gap 13, BUN 7, Creatinine 0.4 L, Est GFR ( Amer) > 60, Est GFR (Non -Af Amer) > 60, Random Glucose 261 H, Calcium 8.7, Total Bilirubin 1.0, AST 66 H , ALT 49, Alkaline Phosphatase 937 H, Lactate Dehydrogenase 335, Total Creatine Kinase 31 L, Troponin I < 0.01, Total Protein 6.6, Albumin 3.3, Globulin 3.4, Albumin/Globulin Ratio 1.0 L 06/18/17 23:00: PT 12.0 H, INR 1.11 H, APTT 30.1 I have reviewed the lab results: Yes - RAD Interpretation Narrative RAD Interpretations (Text): Chest X-ray shows no acute processes. CT Head shows: Brain: Volume loss. No acute hemorrhage. No acute infarct. Old right basal ganglia lacunar infarct versus prominent perivascular space. Ventricles: No hydrocephalus. Bones/joints: Unremarkable. No acute fracture. Soft tissues: Unremarkable. Sinuses: Mild ethmoid sinus mucosal thickening. No fluid levels. Mastoid air cells: Unremarkable as visualized. No mastoid effusion. IMPRESSION: No acute intracranial findings. CT Cervical Spine shows: Vertebrae: No acute fracture. Alignment: Preservation of the normal curvature of the cervical spine. Discs/spinal canal/neural foramina: No acute findings. Degenerative disease is identified, with bridging osteophyte formation, disc space narrowing, endplate changes and facet arthropathy. Soft tissues: Symmetric. Lung apices: The visualized lung apices are clear. Residual secretions are detected within the distal trachea. IMPRESSION: Degenerative disease, without acute fracture. 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 I have reviewed the chart and agree that the record accurately reflects my personal performance of the history, physical exam, medical decision making, and the department course for this patient. I have also personally directed, reviewed, and agree with the discharge instructions and disposition. Disposition/Present on Arrival - Present on Arrival Any Indicators Present on Arrival: No History of DVT/PE: No History of Uncontrolled Diabetes: Yes Urinary Catheter: No History Surgical Site Infection Following: None - Disposition Have Diagnosis and Disposition been Completed?: Yes Diagnosis: Altered mental status, Near syncope, Fall Disposition: HOSPITALIZED Disposition Time: 00:46 Patient Plan: Observation Condition: STABLE Referrals: Michelle Castillo MD [Primary Care Provider] - Follow up with primary
[2017-06-18 23:08] LABS: HEMOGLOBIN 10.3 g/dL (14.0-18.0); MEAN CELL VOLUME 88.8 fl (80.0-105.0); MEAN CORPUSCULAR HEMOGLOBIN 29.5 pg (25.0-35.0); MEAN CORPUSCULAR HGB CONC 33.2 g/dl (31.0-37.0); RBC 3.49 10^6/uL (3.5-6.1); RED CELL DISTRIBUTION WIDTH 14.6 % (11.5-14.5); WHITE BLOOD COUNT 5.6 10^3/ul (4.5-11.0)
[2017-06-18 23:21] LABS: ALBUMIN 3.3 g/dL (3.0-4.8); ALT/SGPT 49 U/L (7-56); AST/SGOT 66 U/L (15-59); BLOOD UREA NITROGEN 7 mg/dL (7-21); CALCIUM 8.7 mg/dL (8.4-10.5); GFR AFRICAN-AMERICAN > 60; GFR NON-AFRICAN AMERICAN > 60; INR 1.11 (0.93-1.08); PARTIAL THROMBOPLASTIN TIME 30.1 Seconds (23.7-30.8)
[2017-06-18 23:50] LABS: TROPONIN I < 0.01 ng/mL
--- NOTE | 2017-06-19 00:29 | CT ---
EXAM: CT Cervical Spine Without Intravenous Contrast CLINICAL HISTORY: 56 years old, male; Injury or trauma; Fall; Initial encounter; Swelling TECHNIQUE: Axial computed tomography images of the cervical spine without intravenous contrast. All CT scans at this facility use one or more dose reduction techniques, viz.: automated exposure control; ma/kV adjustment per patient size (including targeted exams where dose is matched to indication; i.e. head); or iterative reconstruction technique. Coronal and sagittal reformatted images were created and reviewed. COMPARISON: None FINDINGS: Vertebrae: No acute fracture. Alignment: Preservation of the normal curvature of the cervical spine. Discs/spinal canal/neural foramina: No acute findings. Degenerative disease is identified, with bridging osteophyte formation, disc space narrowing, endplate changes and facet arthropathy. Soft tissues: Symmetric. Lung apices: The visualized lung apices are clear. Residual secretions are detected within the distal trachea. IMPRESSION: Degenerative disease, without acute fracture.
--- NOTE | 2017-06-19 07:01 | CT ---
PROCEDURE: CT HEAD WITHOUT CONTRAST. HISTORY: Fall, altered mental status COMPARISON: 05/31/2017. TECHNIQUE: Axial computed tomography images were obtained through the head/brain without intravenous contrast. Radiation dose: Total exam DLP = 871.01 mGy-cm. This CT exam was performed using one or more of the following dose reduction techniques: Automated exposure control, adjustment of the mA and/or kV according to patient size, and/or use of iterative reconstruction technique. FINDINGS: HEMORRHAGE: No intracranial hemorrhage. BRAIN: No mass effect or edema. The small lacune or infarct right basal ganglia. VENTRICLES: Unremarkable. No hydrocephalus. CALVARIUM: Unremarkable. PARANASAL SINUSES: Unremarkable as visualized. No significant inflammatory changes. MASTOID AIR CELLS: Unremarkable as visualized. No inflammatory changes. OTHER FINDINGS: None. IMPRESSION: No acute intracranial abnormalities. No significant findings to account for the clinical presentation. No significant interval change compared to the prior examination(s).
--- NOTE | 2017-06-19 07:56 | RAD ---
HISTORY: Fever. Technique: Portable study performed @ 23:53. COMPARISON: No prior. FINDINGS: LUNGS: No active pulmonary disease. PLEURA: No significant pleural effusion identified, no pneumothorax apparent. CARDIOVASCULAR: No radiographic findings to suggest acute or significant cardiovascular disease. OSSEOUS STRUCTURES: No significant abnormalities. VISUALIZED UPPER ABDOMEN: Normal. OTHER FINDINGS: None. IMPRESSION: No active disease. No significant interval change compared to the prior examination(s).
[2017-06-19 09:21] VITALS: RESP 20
--- NOTE | 2017-06-19 10:26 | RAD ---
HISTORY: rule out pneumonia COMPARISON: 06/18/2017 FINDINGS: LUNGS: No active pulmonary disease. PLEURA: No significant pleural effusion identified, no pneumothorax apparent. CARDIOVASCULAR: Normal. OSSEOUS STRUCTURES: No significant abnormalities. VISUALIZED UPPER ABDOMEN: Normal. OTHER FINDINGS: None. IMPRESSION: No active disease.
--- NOTE | 2017-06-19 12:26 | CP.PCM.CON ---
<Lai Bates - Last Filed: 06/19/17 12:26> History of Present Illness - History of Present Illness History of Present Illness: Neurology Consult Note for Dr. Gambino 56 y/o M with PMH of pancreatic cancer s/p chemo and radiation, HTN, DM, dementia, neurosyphyllis, seizure disorder, asthma, schizophrenia, and hx of old lacunar infarct presents to the ED s/p syncopal episode/fall at his nursing. Information provided is from prior medical records, as the patient is currently confused. According to ED note, patient fell out of a chair at his custodial. On presentation to ED, patient was only oriented to person/place. Pt was unable to say how he fell or if he lost consciousness. Today, patient states he has no complaints, but does not know where he is. When questioned about orientation he replied that he was in [place]. Previous Hx and ROS not able to be attained due to mental status. Review of Systems - Review of Systems Systems not reviewed;Unavailable: Altered Mental Status Past Patient History - Infectious Disease Hx of Infectious Diseases: None - Tetanus Immunizations Tetanus Immunization: Unknown - Past Social History Smoking Status: Former Smoker - CARDIAC Hx Hypertension: Yes - PULMONARY Hx Asthma: Yes Hx Tuberculosis: No - NEUROLOGICAL Hx Neurological Disorder: Yes Hx Dementia: Yes Hx Seizures: Yes - HEENT Hx HEENT Problems: No - RENAL Hx Chronic Kidney Disease: No - ENDOCRINE/METABOLIC Hx Diabetes Mellitus Type 1: Yes Hx Hypothyroidism: Yes - HEMATOLOGICAL/ONCOLOGICAL Hx Blood Disorders: No Hx Cancer: No - INTEGUMENTARY Hx Dermatological Problems: No - MUSCULOSKELETAL/RHEUMATOLOGICAL Hx Falls: Yes - GASTROINTESTINAL Other/Comment: pancreatic CA - GENITOURINARY/GYNECOLOGICAL Hx Genitourinary Disorders: No Hx Sexually Transmitted Disorders: No - PSYCHIATRIC Hx Substance Use: No - SURGICAL HISTORY Hx Orthopedic Surgery: Yes (L dislocation) - ANESTHESIA Hx Anesthesia: Yes Meds Allergies/Adverse Reactions: Allergies Allergy/AdvReac Type Severity Reaction Status Date / Time No Known Allergies Allergy Verified 06/18/17 22:32 - Medications Medications: Current Medications Clozapine (Clozaril) 200 mg PO QAM AVA PRN Reason: Protocol Last Admin: 06/19/17 09:37 Dose: 200 mg Clozapine (Clozaril) 300 mg PO HS AVA PRN Reason: Protocol Donepezil HCl (Aricept) 10 mg PO DAILY [facility]A Last Admin: 06/19/17 09:38 Dose: 10 mg Insulin Human Regular (Humulin R) 8 units SC ACHS AVA Insulin Human Regular (Humulin R Low) 0 units SC ACHS AVA PRN Reason: Protocol Ondansetron HCl (Zofran Tab) 4 mg PO PRN PRN PRN Reason: Nausea/Vomiting Phenytoin Sodium (Dilantin) 200 mg PO HS AVA Trazodone HCl (Desyrel) 50 mg PO HS AVA Physical Exam - Constitutional Appears: Non-toxic, No Acute Distress - Head Exam Head Exam: ATRAUMATIC, NORMAL INSPECTION, NORMOCEPHALIC - Eye Exam Eye Exam: EOMI, Normal appearance - ENT Exam ENT Exam: Mucous Membranes Moist - Neck Exam Neck exam: Positive for: Normal Inspection. Negative for: Lymphadenopathy - Respiratory Exam Respiratory Exam: Clear to Auscultation Bilateral, NORMAL BREATHING PATTERN. absent: Rales, Rhonchi, Wheezes - Cardiovascular Exam Cardiovascular Exam: RRR, +S1, +S2 - GI/Abdominal Exam GI & Abdominal Exam: Normal Bowel Sounds, Soft. absent: Tenderness - Extremities Exam Extremities exam: Negative for: calf tenderness, pedal edema - Neurological Exam Neurological exam: Alert, CN II-XII Intact Additional comments: Responds to verbal commands. Oriented to person only. No pronator drift. Moves all extremities spontaneously. Muscle strength 5/5 in all extremities - Psychiatric Exam Psychiatric exam: Flat Affect - Skin Skin Exam: Intact, Normal Color, Warm Results - Vital Signs Recent Vital Signs: Last Vital Signs Temp 100.1 F H 06/19/17 08:00 Pulse 83 06/19/17 08:00 Resp 20 06/19/17 08:00 BP 91/57 L 06/19/17 08:00 Pulse Ox 100 06/19/17 08:00 - Labs Result Diagrams: 06/18/17 23:00 06/18/17 23:00 Labs: Laboratory Results - last 24 hr 06/19/17 06/19/17 06/19/17 07:23 09:40 11:19 POC Glucose (mg/dL) 142 H 220 H Phenytoin 13 Assessment & Plan - Assessment and Plan (Free Text) Plan: 56 y/o M with PMH of pancreatic cancer s/p chemo and radiation, HTN, DM, dementia, neurosyphyllis, seizure disorder, asthma, schizophrenia, and hx of old lacunar infarct presents with transient cerebral hypoperfusion likely leading to breakthrough seizure. Pt should be adequately hydrated and continued on Dilantin, as levels are therapeutic at this time. Pt may also have infection with low grade temperature this morning. Plan: Continue Dilantin Goal SBP >120 Blood cultures Avoid sedative medications Encourage oral hydration Paulo, PGY-2 <Roberto Carlos Gambinoish - Last Filed: 06/19/17 13:43> Meds - Medications Medications: Current Medications Clozapine (Clozaril) 200 mg PO QAM AVA PRN Reason: Protocol Last Admin: 06/19/17 09:37 Dose: 200 mg Clozapine (Clozaril) 300 mg PO HS AVA PRN Reason: Protocol Donepezil HCl (Aricept) 10 mg PO DAILY AVA Last Admin: 06/19/17 09:38 Dose: 10 mg Insulin Human Regular (Humulin R) 8 units SC ACHS AVA Last Admin: 06/19/17 12:41 Dose: 8 units Insulin Human Regular (Humulin R Low) 0 units SC ACHS AVA PRN Reason: Protocol Last Admin: 06/19/17 12:42 Dose: 2 units Ondansetron HCl (Zofran Tab) 4 mg PO PRN PRN PRN Reason: Nausea/Vomiting Phenytoin Sodium (Dilantin) 200 mg PO HS AVA Trazodone HCl (Desyrel) 50 mg PO HS AVA Results - Vital Signs Recent Vital Signs: Last Vital Signs Temp 100.1 F H 06/19/17 08:00 Pulse 83 06/19/17 08:00 Resp 20 06/19/17 08:00 BP 91/57 L 06/19/17 08:00 Pulse Ox 100 06/19/17 08:00 - Labs Result Diagrams: 06/18/17 23:00 06/18/17 23:00 Labs: Laboratory Results - last 24 hr 06/19/17 06/19/17 06/19/17 07:23 09:40 11:19 POC Glucose (mg/dL) 142 H 220 H Phenytoin 13 Attending/Attestation - Attestation I have personally seen and examined this patient.: Yes I have fully participated in the care of the patient.: Yes I have reviewed all pertinent clinical information: Yes
[2017-06-19] MEDS: Insulin Regular 1 UNITS/0.01 ML ML SC SCH ×2 (12:41→17:09)
[2017-06-19] MEDS: Insulin Reg-LOW-Coverage SC SCH ×3 (12:42→21:43)
--- NOTE | 2017-06-19 13:17 | CARD ---
APPROVED REPORT EKG Measurement Heart [id number] <Conclusion> Normal sinus rhythm Left axis deviation Low voltage QRS Septal infarct, age undetermined Abnormal ECG
--- NOTE | 2017-06-19 14:56 | CP.PCM.CON ---
History of Present Illness - History of Present Illness History of Present Illness: 56 year old male with PMH of pancreatic cancer with liver metastases S/P chemotherapy and radiation, HTN, DM, dementia, history of neurosyphilis, seizure disorder, asthma, schizophrenia was brought in to [facility] because of a fall that happened in the shelter. The patient was apparently noted to be confused. There is no note of trauma to the head, no vomiting, no convulsions, no bladder or bowel incontinence. Infectious Diseases consult is requested to further evaluate and manage. Review of Systems - Review of Systems Systems not reviewed;Unavailable: Dementia Past Patient History - Infectious Disease Hx of Infectious Diseases: None - Tetanus Immunizations Tetanus Immunization: Unknown - Past Social History Smoking Status: Former Smoker - CARDIAC Hx Hypertension: Yes - PULMONARY Hx Asthma: Yes Hx Tuberculosis: No - NEUROLOGICAL Hx Neurological Disorder: Yes Hx Dementia: Yes Hx Seizures: Yes - HEENT Hx HEENT Problems: No - RENAL Hx Chronic Kidney Disease: No - ENDOCRINE/METABOLIC Hx Diabetes Mellitus Type 1: Yes Hx Hypothyroidism: Yes - HEMATOLOGICAL/ONCOLOGICAL Hx Blood Disorders: No Hx Cancer: No - INTEGUMENTARY Hx Dermatological Problems: No - MUSCULOSKELETAL/RHEUMATOLOGICAL Hx Falls: Yes - GASTROINTESTINAL Other/Comment: pancreatic CA - GENITOURINARY/GYNECOLOGICAL Hx Genitourinary Disorders: No Hx Sexually Transmitted Disorders: No - PSYCHIATRIC Hx Substance Use: No - SURGICAL HISTORY Hx Orthopedic Surgery: Yes (L dislocation) - ANESTHESIA Hx Anesthesia: Yes Meds Allergies/Adverse Reactions: Allergies Allergy/AdvReac Type Severity Reaction Status Date / Time No Known Allergies Allergy Verified 06/18/17 22:32 - Medications Medications: Current Medications Clozapine (Clozaril) 200 mg PO QAM AVA PRN Reason: Protocol Clozapine (Clozaril) 300 mg PO HS AVA PRN Reason: Protocol Donepezil HCl (Aricept) 10 mg PO DAILY AVA Insulin Human Regular (Humulin R) 8 units SC ACHS AVA Insulin Human Regular (Humulin R Low) 0 units SC ACHS AVA PRN Reason: Protocol Ondansetron HCl (Zofran Tab) 4 mg PO PRN PRN PRN Reason: Nausea/Vomiting Phenytoin Sodium (Dilantin) 200 mg PO HS AVA Trazodone HCl (Desyrel) 50 mg PO HS AVA Physical Exam - Constitutional Appears: Non-toxic, No Acute Distress - Head Exam Head Exam: NORMAL INSPECTION - ENT Exam ENT Exam: Mucous Membranes Moist - Neck Exam Neck exam: Negative for: Lymphadenopathy, Meningismus - Respiratory Exam Respiratory Exam: Decreased Breath Sounds - Cardiovascular Exam Cardiovascular Exam: +S1, +S2 - GI/Abdominal Exam GI & Abdominal Exam: Soft. absent: Tenderness Results - Vital Signs Recent Vital Signs: Last Vital Signs Temp 98.8 F 06/18/17 22:16 Pulse 83 06/19/17 02:18 Resp 18 06/19/17 02:18 BP 90/55 L 06/19/17 01:15 Pulse Ox 100 06/19/17 01:15 - Labs Result Diagrams: 06/18/17 23:00 06/18/17 23:00 Labs: Laboratory Results - last 24 hr 06/19/17 07:23 POC Glucose (mg/dL) 142 H Assessment & Plan - Assessment and Plan (Free Text) Plan: Assessment Confusion probably post-ictal state, transient pancreatic cancer with liver metastases S/P chemotherapy and radiation HTN DM dementia history of neurosyphilis seizure disorder asthma schizophrenia Plan Will follow up blood and urine cx, PCT, CXR; had one episode of 100.1 F which did not persist - monitor off antibiotics
--- NOTE | 2017-06-19 23:35 | CP.PCM.HP ---
History of Present Illness - History of Present Illness History of Present Illness: 06/19/17 John Saha is a 56 year old male, whose past medical history includes pancreatic cancer, hypertension, diabetes, dementia, neurosyphilis, seizures, asthma, and psychosis/schizophrenia, who presents to the Emergency department sent from longterm status post fall. As per longterm, patient fell from a chair earlier tonight. Patient appears confused and is oriented to person/ place. Patient is unable to recall how he fell or if he lost consciousness. Patient reports some neck discomfort. Limited HPI and ROS due to patient's confusion/dementia. Present on Admission - Present on Admission Any Indicators Present on Admission: No Review of Systems - Review of Systems Systems not reviewed;Unavailable: Altered Mental Status, Psychotic - Constitutional Constitutional: Frequent Falls - EENT Eyes: As Per HPI Ears: As Per HPI Nose/Mouth/Throat: As Per HPI - Cardiovascular Cardiovascular: As Per HPI - Respiratory Respiratory: As Per HPI - Gastrointestinal Gastrointestinal: As Per HPI Past Patient History - Infectious Disease Hx of Infectious Diseases: None - Tetanus Immunizations Tetanus Immunization: Unknown - Past Social History Smoking Status: Former Smoker - CARDIAC Hx Hypertension: Yes - PULMONARY Hx Asthma: Yes Hx Tuberculosis: No - NEUROLOGICAL Hx Neurological Disorder: Yes Hx Dementia: Yes Hx Seizures: Yes - HEENT Hx HEENT Problems: No - RENAL Hx Chronic Kidney Disease: No - ENDOCRINE/METABOLIC Hx Diabetes Mellitus Type 1: Yes Hx Hypothyroidism: Yes - HEMATOLOGICAL/ONCOLOGICAL Hx Blood Disorders: No Hx Cancer: No - INTEGUMENTARY Hx Dermatological Problems: No - MUSCULOSKELETAL/RHEUMATOLOGICAL Hx Falls: Yes - GASTROINTESTINAL Other/Comment: pancreatic CA - GENITOURINARY/GYNECOLOGICAL Hx Genitourinary Disorders: No Hx Sexually Transmitted Disorders: No - PSYCHIATRIC Hx Substance Use: No - SURGICAL HISTORY Hx Orthopedic Surgery: Yes (L dislocation) - ANESTHESIA Hx Anesthesia: Yes Meds Allergies/Adverse Reactions: Allergies Allergy/AdvReac Type Severity Reaction Status Date / Time No Known Allergies Allergy Verified 06/18/17 22:32 Physical Exam - Constitutional Appears: Well - Head Exam Head Exam: ATRAUMATIC, NORMAL INSPECTION, NORMOCEPHALIC - Eye Exam Eye Exam: EOMI, Normal appearance, PERRL Pupil Exam: NORMAL ACCOMODATION, PERRL - ENT Exam ENT Exam: Mucous Membranes Moist, Normal Exam - Neck Exam Neck exam: Positive for: Normal Inspection - Respiratory Exam Respiratory Exam: Clear to Auscultation Bilateral, NORMAL BREATHING PATTERN - Cardiovascular Exam Cardiovascular Exam: REGULAR RHYTHM - GI/Abdominal Exam GI & Abdominal Exam: Normal Bowel Sounds, Soft. absent: Tenderness - Rectal Exam Rectal Exam: NORMAL INSPECTION - Exam Exam: Circumcision, NORMAL INSPECTION External exam: NORMAL EXTERNAL EXAM Speculum exam: NORMAL SPECULUM EXAM Bimanual exam: NORMAL BIMANUAL EXAM - Extremities Exam Extremities exam: Positive for: normal inspection - Back Exam Back exam: NORMAL INSPECTION - Neurological Exam Neurological exam: Alert, CN II-XII Intact, Normal Gait, Oriented x3, Reflexes Normal - Psychiatric Exam Psychiatric exam: Normal Affect, Normal Mood - Skin Skin Exam: Dry, Intact, Normal Color, Warm Results - Vital Signs Recent Vital Signs: Last Vital Signs Temp 98.2 F 06/19/17 16:00 Pulse 80 06/19/17 17:52 Resp 20 06/19/17 16:00 BP 88/55 L 06/19/17 16:00 Pulse Ox 97 06/19/17 16:00 - Labs Result Diagrams: 06/18/17 23:00 06/18/17 23:00 Labs: Laboratory Results - last 24 hr 06/19/17 06/19/17 06/19/17 07:23 09:40 09:40 POC Glucose (mg/dL) 142 H Procalcitonin 0.26 Phenytoin 13 06/19/17 06/19/17 06/19/17 11:19 16:21 21:18 POC Glucose (mg/dL) 220 H 115 H 164 H Procalcitonin Phenytoin Assessment & Plan - Assessment and Plan (Free Text) Assessment: 56 y/o M with PMH of pancreatic cancer s/p chemo and radiation, HTN, DM, dementia, neurosyphyllis, seizure disorder, asthma, schizophrenia, and hx of old lacunar infarct presents to the ED s/p syncopal episode/fall at his nursing. Information provided is from prior medical records, as the patient is currently confused. According to ED note, patient fell out of a chair at his longterm. On presentation to ED, patient was only oriented to person/place. Pt was unable to say how he fell or if he lost consciousness. Today, patient states he has no complaints, but does not know where he is. When questioned about orientation he replied that he was in [place]. Previous Hx and ROS not able to be attained due to mental status. Plan: 56 y/o M with PMH of pancreatic cancer s/p chemo and radiation, HTN, DM, dementia, neurosyphyllis, seizure disorder, asthma, schizophrenia, and hx of old lacunar infarct presents with transient cerebral hypoperfusion likely leading to breakthrough seizure. Pt should be adequately hydrated and continued on Dilantin, as levels are therapeutic at this time. Pt may also have infection with low grade temperature this morning. Plan: Continue Dilantin Goal SBP >120 Blood cultures Avoid sedative medications Encourage oral hydrationWill follow up blood and urine cx, PCT, CXR; had one episode of 100.1 F which did not persist - monitor off antibiotics
[2017-06-19] MEDS ORDERED: Sodium Chloride 0.9% 1,000 ML IV SCH (23:45)
[2017-06-20] MEDS: Insulin Reg-LOW-Coverage SC SCH ×2 (08:26→12:38)
--- NOTE | 2017-06-20 11:21 | CP.PCM.PN ---
Subjective - Date & Time of Evaluation Date of Evaluation: 06/20/17 Time of Evaluation: 10:45 - Subjective Subjective: Comfortable, no fevers overnight, not in distress. Objective - Vital Signs/Intake and Output Vital Signs (last 24 hours): Temp Pulse Resp BP Pulse Ox 99.4 F 78 20 90/57 L 100 06/20/17 06:00 06/20/17 06:00 06/20/17 06:00 06/20/17 06:00 06/20/17 06:00 Intake and Output: 06/20/17 06/20/17 06:59 18:59 Intake Total 790 Balance 790 - Medications Medications: Current Medications Clozapine (Clozaril) 200 mg PO QAM AVA PRN Reason: Protocol Last Admin: 06/20/17 09:20 Dose: 200 mg Clozapine (Clozaril) 300 mg PO HS AVA PRN Reason: Protocol Last Admin: 06/19/17 23:03 Dose: 300 mg Donepezil HCl (Aricept) 10 mg PO DAILY [facility] Last Admin: 06/20/17 09:20 Dose: 10 mg Sodium Chloride (Sodium Chloride 0.9%) 1,000 mls @ 100 mls/hr IV .Q10H AVA Last Admin: 06/20/17 01:26 Dose: 100 mls/hr Insulin Human Regular (Humulin R Low) 0 units SC ACHS AVA PRN Reason: Protocol Last Admin: 06/20/17 08:26 Dose: Not Given Ondansetron HCl (Zofran Tab) 4 mg PO PRN PRN PRN Reason: Nausea/Vomiting Phenytoin Sodium (Dilantin) 200 mg PO HS [facility] Last Admin: 06/19/17 23:05 Dose: 200 mg Trazodone HCl (Desyrel) 50 mg PO HS [facility] Last Admin: 06/19/17 23:05 Dose: 50 mg - Labs Labs: PT 12.0 Seconds (9.9-11.8) H 06/18/17 23:00 INR 1.11 (0.93-1.08) H 06/18/17 23:00 APTT 30.1 Seconds (23.7-30.8) 06/18/17 23:00 - Constitutional Appears: Non-toxic, No Acute Distress - Head Exam Head Exam: NORMAL INSPECTION - Neck Exam Neck Exam: absent: Meningismus - Respiratory Exam Respiratory Exam: Decreased Breath Sounds - Cardiovascular Exam Cardiovascular Exam: +S1, +S2 - GI/Abdominal Exam GI & Abdominal Exam: Soft. absent: Tenderness Assessment and Plan - Assessment and Plan (Free Text) Plan: Assessment Confusion probably post-ictal state, transient pancreatic cancer with liver metastases S/P chemotherapy and radiation HTN DM dementia history of neurosyphilis seizure disorder asthma schizophrenia Plan blood cx are negative; PCT is only 0.26, CXR does not show active disease; had one episode of 100.1 F which did not persist - continue to monitor off antibiotics
[2017-06-20] MEDS ORDERED: Insulin Regular 1 UNITS/0.01 ML ML SC ONE (12:15)
[2017-06-20 17:11] VITALS: BP 86/52; PULSE 78; TEMP 99; O2SAT 98
== END 2017-06-20 17:25 | DRG 889 ==
LOC: ED 22:10 → ERH 06-19 00:47 → 3RSO 06-19 01:52 → OBSVTOIN 06-19 23:35
PROVIDERS: ADMIT Internal Medicine; ATTEND Internal Medicine
DX: G40.909 Epilepsy, unspecified, not intractable, without status epilepticus (principal); C78.7 Secondary malignant neoplasm of liver and intrahepatic bile duct; F03.90 Unspecified dementia, unspecified severity, without behavioral disturbance, psychotic disturbance, mood disturbance, and anxiety; F20.9 Schizophrenia, unspecified; E03.9 Hypothyroidism, unspecified; E10.9 Type 1 diabetes mellitus without complications; I10 Essential (primary) hypertension; J45.909 Unspecified asthma, uncomplicated; M46.90 Unspecified inflammatory spondylopathy, site unspecified; W07.XXXA Fall from chair, initial encounter; Z85.07 Personal history of malignant neoplasm of pancreas; Z86.73 Personal history of transient ischemic attack (TIA), and cerebral infarction without residual deficits; Z87.891 Personal history of nicotine dependence; Z92.21 Personal history of antineoplastic chemotherapy; Z92.3 Personal history of irradiation; Y92.129 Unspecified place in nursing home as the place of occurrence of the external cause; R40.2412 Glasgow coma scale score 13-15, at arrival to emergency department

== ENCOUNTER 2017-07-11 09:56 | Inpatient (IN) | payer MEDICAID ==
[2017-07-11 10:16] VITALS: BMI 26.6
[2017-07-11] MEDS ORDERED: Sodium Chloride 0.9% 1,000 ML IV STA (10:20)
[2017-07-11 10:36] LABS: ARTERIAL BLOOD GAS HCO3 23.6 mmol/L (21-28); ARTERIAL BLOOD GAS PH 7.49 (7.35-7.45)
--- NOTE | 2017-07-11 10:42 | ED PDOC ---
Arrival/HPI - General Chief Complaint: Altered Mental Status Time Seen by Provider: 07/11/17 10:00 Historian: Caregiver, [facility] - History of Present Illness Narrative History of Present Illness (Text): 07/11/17 10:39 Patient is a 56 yo male with past medical history of pancreatic cancer, presents from oncology clinic for "altered mental status" and lethargy. Patient is present with caregiver from his longterm, [facility], and history is supplemented from this caregiver. Caregiver states that patient typically " walks and talks". She states that when she started her shift at [facility] this AM he was very weak and "not acting himself". She states that she does not know how long he was like this for and did not get a report from prior shifts. Patient reportedly was brought to oncology clinic and subsequently sent here for altered mental status. No trauma reported. No shortness of breath reported. Time/Duration: Prior to Arrival Symptom Onset: Gradual Past Medical History - Infectious Disease Hx of Infectious Diseases: None - Tetanus Immunization Tetanus Immunization: Unknown - Cardiac Hx Cardiac Disorders: Yes Hx Hypertension: Yes - Pulmonary Hx Respiratory Disorders: Yes Hx Asthma: Yes Hx Tuberculosis: No - Neurological Hx Neurological Disorder: Yes Hx Dementia: Yes Hx Seizures: Yes - HEENT Hx HEENT Disorder: No - Renal Hx Renal Disorder: No - Endocrine/Metabolic Hx Endocrine Disorders: Yes Hx Diabetes Mellitus Type 1: Yes Hx Hypothyroidism: Yes - Hematological/Oncological Hx Blood Disorders: Yes Hx Cancer: Yes (pancreatic) - Integumentary Hx Dermatological Disorder: No - Musculoskeletal/Rheumatological Hx Musculoskeletal Disorders: Yes Hx Falls: Yes - Gastrointestinal Hx Gastrointestinal Disorders: Yes Other/Comment: pancreatic CA - Genitourinary/Gynecological Hx Genitourinary Disorders: No Hx Sexually Transmitted Diseases: No - Psychiatric Hx Psychophysiologic Disorder: No Hx Substance Use: No - Past Surgical History Past Surgical History: Unable to Obtain - Surgical History Hx Orthopedic Surgery: Yes (L dislocation) - Anesthesia Hx Anesthesia: Yes - Suicidal Assessment Feels Threatened In Home Enviroment: Yes Family/Social History Family/Social History: Unknown Family HX Smoking Status: Former Smoker Hx Alcohol Use: No Hx Substance Use: No Hx Substance Use Treatment: No Allergies/Home Meds Allergies/Adverse Reactions: Allergies No Known Allergies Allergy (Verified 07/11/17 10:17) Home Medications: Home Meds Medication Instructions Recorded Confirmed cloZAPine [Clozaril] 300 mg PO HS 03/15/16 07/11/17 cloZAPine [Clozaril] 200 mg PO QAM 01/02/17 07/11/17 Lidocaine 5% [Lidoderm] 1 patch TD DAILY 05/31/17 07/11/17 Ondansetron [Zofran Tab] 4 mg PO PRN PRN 05/31/17 07/11/17 traZODone [Desyrel] 50 mg PO HS PRN 05/31/17 07/11/17 Acetaminophen [Tylenol 325mg tab] 650 mg PO Q4H PRN 06/26/17 07/11/17 Phenytoin [Dilantin Chewable Tab] 150 mg PO BID 06/26/17 07/11/17 Insulin Human Regular [Novolin R] 0 units SC ACHS 07/11/17 07/11/17 Magnesium Hydroxide [Milk Of 30 ml PO HS PRN 07/11/17 07/11/17 Magnesia] Review of Systems - Review of Systems Systems not reviewed;Unavailable: Altered Mental Status Constitutional: absent: Fevers Respiratory: absent: SOB Gastrointestinal: absent: Vomiting Physical Exam Vital Signs Reviewed: Yes Vital Signs Temp Pulse Resp BP Pulse Ox 07/11/17 11:33 97.5 F L 07/11/17 10:12 98.3 F 101 H 19 105/71 98 Temperature: Afebrile Appearance: Positive for: Ill-Appearing Finger Stick Blood Glucose: 432 - Systems Exam Head: Present: Atraumatic Pupils: Present: Sluggish Mouth: Present: Dry Pharnyx: No: ERYTHEMA Neck: No: Meningeal Signs, MIDLINE TENDERNESS Respiratory/Chest: Present: Good Air Exchange. No: Respiratory Distress Cardiovascular: Present: Regular Rate and Rhythm, Murmurs Abdomen: Present: Distention, Normal Bowel Sounds. No: Tenderness Rectal: No: Gross Blood, Melena, Hemorrhoids Back: No: Midline Tenderness Upper Extremity: Present: NORMAL PULSES Lower Extremity: Present: NORMAL PULSES. No: Edema Neurological: Present: Other (patient will respond to painful stimuli, localize pain and move all 4 extremities and grimace) Skin: Present: Pale Psychiatric: No: Alert, Oriented x 3 Medical Decision Making ED Course and Treatment: Patient's history is limited due to reported altered mental status. I obtained further history from caregiver present with him from [place], as well as by speaking directly to his physicians including Dr. Finch as well as Dr. Castillo. Patient reportedly " normally speaks and walks ". On exam, he is arousable. Not hypotensive. Not tachypneic. Afebrile. Neck is supple with no rigidity. Lungs are clear. He will move all four extremities. No focal drooping or acute focal weakness noted. CT head obtained and is initially unremarkable. He is hyperglycemic although pH is not acidotic and no smell of acetones. IV fluids given with improvement of blood sugar to 300s. With serial exams he appears more alert. Abdomen is distended, but no peritoneal signs noted. Slight elevation in bilirubin and lfts noted. Ammonia level ordered. Leukocytosis noted with mild elevation in lactate. Code sepsis called and iv fluid bolus continued, as well as broad spectrum antibitoics. Mendez catheter placed and urine obtained. Requested ICU consult for sepsis evaluation, ams evaluation. On re-evaluation, more alert, bp stable, not tachypneic or tachycardic. No seizure activity reported or noted. I discussed case with Dr. Castillo, patient will be admitted for sepsis, ams. Patient evaluated by ICU team, currently cleared for telemetry admission. Ammonia level noted and consult placed to Dr. Guerrero and Dr. Castillo paged to be updated. Patient currently admitted, will communicate results with admitting physician as well as GI consultants for management of component of hepatic encephalopathy. Dr. Castillo updated on patient's disposition to telemetry, as well as likely UTI. PMD updated with elevated ammonia level. Patient admitted on floor currently. - Lab Interpretations Lab Results: 07/11/17 10:40 07/11/17 10:40 Lab Results 07/11/17 10:40: Phenytoin 16 07/11/17 10:40: pO2 177 H, VBG pH 7.48 H, VBG pCO2 34.0 L, VBG HCO3 25.3, VBG Total CO2 26.3, VBG O2 Sat (Calc) 99.7 H, VBG Base Excess 2.2 H, VBG Potassium 5.4 H, Sodium 133.0, Chloride 99.0, Glucose 493 H*, Lactate 2.8 H, FiO2 21.0, Venous Blood Potassium 5.4 H 07/11/17 10:40: Sodium 135, Chloride 99, Potassium 5.2 H, Carbon Dioxide 24, Anion Gap 17, BUN 28 H, Creatinine 0.7, Est GFR ( Amer) > 60, Est GFR ( Non-Af Amer) > 60, Random Glucose 471 H* D, Calcium 8.5, Magnesium 2.7 H, Total Bilirubin 2.5 H, AST 74 H, ALT 28, Alkaline Phosphatase 1074 H, Lactate Dehydrogenase 484, Total Creatine Kinase 51, Troponin I < 0.01, Total Protein 6.7, Albumin 3.1, Globulin 3.5, Albumin/Globulin Ratio 0.9 L 07/11/17 10:40: PT 13.0 H, INR 1.20 H, APTT 26.6 07/11/17 10:40: WBC 21.8 H D, RBC 3.66, Hgb 10.5 L, Hct 31.9 L, MCV 87.2, MCH 28.7, MCHC 32.9, RDW 18.9 H, Plt Count 630 H, MPV 9.9, Gran % 90.9 H, Lymph % ( Auto) 2.3 L, [place] % (Auto) 6.7 H, Eos % (Auto) 0.0 L, Baso % (Auto) 0.1, Gran # 19.78 H, Lymph # 0.5 L, [place] # 1.5 H, Eos # 0.0, Baso # 0.02, Neutrophils % ( Manual) 92 H, Lymphocytes % (Manual) 6 L, Monocytes % (Manual) 2, Platelet Evaluation Normal, Hypochromasia Slight, Anisocytosis (manual) Slight 07/11/17 10:33: POC Glucose (mg/dL) 432 H* 07/11/17 10:30: pCO2 31 L, pO2 58.0 L, HCO3 23.6, ABG pH 7.49 H, ABG Total CO2 24.6, ABG O2 Saturation 94.8 L, ABG Base Excess 1.0, ABG Potassium 5.0, Sodium 135.0, Chloride 99.0, Glucose 464 H* D, Lactate 2.7 H, FiO2 21.0, Arterial Blood Potassium 5.0 - RAD Interpretation Radiology Orders: 07/11/17 10:18 HEAD W/O CONTRAST [CT] Stat 07/11/17 10:19 CHEST PORTABLE [RAD] Stat - EKG Interpretation EKG Interpretation (Text): EKG at 10:11 sinus tachycardia rate of [address] elevations Interpreted by ED Physician: Yes Type: 12 lead EKG - Medication Orders Current Medication Orders: Vancomycin HCl (Vancomycin 1gm) 1 gm in 250 mls @ 167 mls/hr IVPB STAT STA PRN Reason: Protocol Stop: 07/11/17 16:38 Last Admin: 07/11/17 15:35 Dose: 167 mls/hr Piperacillin Sod/Tazobactam Sod (Zosyn 4.5 Gm In Ns 100ml) 4.5 gm in 100 mls @ 200 mls/hr IVPB Q6 AVA PRN Reason: Protocol Stop: 07/18/17 18:01 Discontinued Medications Sodium Chloride (Sodium Chloride 0.9%) 1,000 mls @ 1,000 mls/hr IV .Q1H STA Stop: 07/11/17 11:19 Last Admin: 07/11/17 10:29 Dose: 1,000 mls/hr Sodium Chloride 2,380 ml/ IV (SUPPLIES) 2,380 mls @ 4,762.74 mls/hr IV ONCE ONE PRN Reason: 60 ML/KG/HR Stop: 07/11/17 11:13 Last Admin: 07/11/17 11:30 Dose: 4,762.74 mls/hr Piperacillin Sod/Tazobactam Sod (Zosyn 4.5 Gm In Ns 100ml) 4.5 gm in 100 mls @ 200 mls/hr IVPB STAT STA PRN Reason: Protocol Stop: 07/11/17 11:43 Last Admin: 07/11/17 11:31 Dose: 200 mls/hr Disposition/Present on Arrival - Present on Arrival Any Indicators Present on Arrival: No History of DVT/PE: No History of Uncontrolled Diabetes: No Urinary Catheter: No History of Decub. Ulcer: No History Surgical Site Infection Following: None - Disposition Have Diagnosis and Disposition been Completed?: Yes Diagnosis: Hepatic encephalopathy, Altered mental status, Sepsis, Leukocytosis, UTI ( urinary tract infection), Hyperglycemia Disposition: HOSPITALIZED Disposition Time: 10:30 Patient Plan: Admission, Telemetry Patient Problems: Current Active Problems Problem Status Onset Altered mental status Acute Hepatic encephalopathy Acute Leukocytosis Acute Sepsis Acute UTI (urinary tract infection) Acute Condition: SERIOUS
[2017-07-11 11:02] LABS: VENOUS BLOOD GAS BASE EXCESS 2.2 mmol/L (0.0-2.0); VENOUS BLOOD PH 7.48 (7.32-7.43)
[2017-07-11 11:03] LABS: BASO # 0.02 K/mm3 (0.0-2.0); BASO % 0.1 % (0.0-3.0); GRAN # 19.78 (1.4-6.5); GRAN % 90.9 % (50.0-68.0); HEMATOCRIT 31.9 % (42.0-52.0); LYMPH # 0.5 (1.2-3.4); LYMPH % 2.3 % (22.0-35.0); MEAN CELL VOLUME 87.2 fl (80.0-105.0); MEAN CORPUSCULAR HEMOGLOBIN 28.7 pg (25.0-35.0); MEAN CORPUSCULAR HGB CONC 32.9 g/dl (31.0-37.0); MEAN PLATELET VOLUME 9.9 fl (7.0-11.0); MONO # 1.5 (0.1-0.6); MONO % 6.7 % (1.0-6.0); PLATELET COUNT 630 10^3/uL (120.0-450.0); RED CELL DISTRIBUTION WIDTH 18.9 % (11.5-14.5); WHITE BLOOD COUNT 21.8 10^3/ul (4.5-11.0)
[2017-07-11 11:12] LABS: ALB/GLOB RATIO 0.9 (1.1-1.8); ALKALINE PHOSPHATASE 1074 U/L (38-126); ALT/SGPT 28 U/L (7-56); AST/SGOT 74 U/L (17-59); BILIRUBIN,TOTAL 2.5 mg/dL (0.2-1.3); BLOOD UREA NITROGEN 28 mg/dL (7-21); CALCIUM 8.5 mg/dL (8.4-10.5); CARBON DIOXIDE 24 mmol/L (21-33); CHLORIDE 99 mmol/L (98-107); GFR AFRICAN-AMERICAN > 60; MAGNESIUM 2.7 mg/dL (1.7-2.2); POTASSIUM 5.2 mmol/L (3.6-5.0); SODIUM 135 mmol/L (132-148); TOTAL PROTEIN 6.7 g/dL (5.8-8.3)
--- NOTE | 2017-07-11 11:13 | CT ---
PROCEDURE: CT HEAD WITHOUT CONTRAST. HISTORY: ams COMPARISON: 06/18/2017 TECHNIQUE: Axial computed tomography images were obtained through the head/brain without intravenous contrast. Radiation dose: Total exam DLP = 677 mGy-cm. This CT exam was performed using one or more of the following dose reduction techniques: Automated exposure control, adjustment of the mA and/or kV according to patient size, and/or use of iterative reconstruction technique. FINDINGS: HEMORRHAGE: No intracranial hemorrhage. BRAIN: No mass effect or edema. There is a chronic lacunar infarct in the right basal ganglia. There are no acute findings VENTRICLES: Unremarkable. No hydrocephalus. CALVARIUM: Unremarkable. PARANASAL SINUSES: Unremarkable as visualized. No significant inflammatory changes. MASTOID AIR CELLS: Unremarkable as visualized. No inflammatory changes. OTHER FINDINGS: None. IMPRESSION: No acute intracranial finding
[2017-07-11] MEDS ORDERED: Piperacill/Tazo 4.5gm in NS 4.5 GM/100 ML BAG IVPB STA (11:14)
[2017-07-11 11:15] LABS: INR 1.2 (0.93-1.08); PARTIAL THROMBOPLASTIN TIME 26.6 Seconds (23.7-30.8)
--- NOTE | 2017-07-11 11:30 | RAD ---
HISTORY: sob COMPARISON: 06/19/2017 FINDINGS: LUNGS: There is linear atelectasis at the left lung base PLEURA: No significant pleural effusion identified, no pneumothorax apparent. CARDIOVASCULAR: Normal. OSSEOUS STRUCTURES: No significant abnormalities. VISUALIZED UPPER ABDOMEN: Normal. OTHER FINDINGS: None. IMPRESSION: No active disease.
[2017-07-11 11:38] LABS: GLUCOSE,RANDOM 471 mg/dL (70-110); TROPONIN I < 0.01 ng/mL
[2017-07-11 12:45] LABS: NEUTROPHIL 92 % (50.0-70.0)
[2017-07-11 12:46] LABS: ANISOCYTOSIS SLIGHT; HYPOCHROMIA SLIGHT; PLATELET ESTIMATE NORMAL (NORMAL)
--- NOTE | 2017-07-11 12:50 | CP.PCM.CON ---
History of Present Illness - History of Present Illness History of Present Illness: Patient is 56yo male with PMHx of pancreatic Ca with ?mets, presents from oncology clinic for AMS. History is limited to the ER staff, as patient unable to answer questions. As per charting, patient has "not been acting himself for some time" as per nursing coordinator at [facility]. No endorsed history of fever, chills, cough, chest pain, sob, palpitations, LOPEZ, dizziness, syncope/LOC. Patient was taken to oncology clinic today for AMS, sent to the ER. In the E rnoted to have leukocytosis, with mildly elevated lactate. Patient is currently somnolent, but arousable, wakes up with verbal and noxious stimuli, mumbling. PMHx: Pancreatic Ca PSHx: unknown Allergies: NKDA FHx: ? Review of Systems - Review of Systems Review of Systems: cannot obtain Past Patient History - Infectious Disease Hx of Infectious Diseases: None - Tetanus Immunizations Tetanus Immunization: Unknown - Past Social History Smoking Status: Former Smoker - CARDIAC Hx Cardiac Disorders: Yes Hx Hypertension: Yes - PULMONARY Hx Respiratory Disorders: Yes Hx Asthma: Yes Hx Tuberculosis: No - NEUROLOGICAL Hx Neurological Disorder: Yes Hx Dementia: Yes Hx Seizures: Yes - HEENT Hx HEENT Problems: No - RENAL Hx Chronic Kidney Disease: No - ENDOCRINE/METABOLIC Hx Endocrine Disorders: Yes Hx Diabetes Mellitus Type 1: Yes Hx Hypothyroidism: Yes - HEMATOLOGICAL/ONCOLOGICAL Hx Blood Disorders: Yes Hx Cancer: Yes (pancreatic) - INTEGUMENTARY Hx Dermatological Problems: No - MUSCULOSKELETAL/RHEUMATOLOGICAL Hx Musculoskeletal Disorders: Yes Hx Falls: Yes - GASTROINTESTINAL Hx Gastrointestinal Disorders: Yes Other/Comment: pancreatic CA - GENITOURINARY/GYNECOLOGICAL Hx Genitourinary Disorders: No Hx Sexually Transmitted Disorders: No - PSYCHIATRIC Hx Psychophysiologic Disorder: No Hx Substance Use: No - SURGICAL HISTORY Hx Orthopedic Surgery: Yes (L dislocation) - ANESTHESIA Hx Anesthesia: Yes Meds Allergies/Adverse Reactions: Allergies Allergy/AdvReac Type Severity Reaction Status Date / Time No Known Allergies Allergy Verified 07/11/17 10:17 Physical Exam - Constitutional Appears: No Acute Distress, Confused - Eye Exam Eye Exam: Normal appearance - ENT Exam ENT Exam: Mucous Membranes Dry - Neck Exam Neck exam: Positive for: Full Rom - Respiratory Exam Respiratory Exam: Clear to Auscultation Bilateral, NORMAL BREATHING PATTERN - Cardiovascular Exam Cardiovascular Exam: RRR, +S1, +S2 - GI/Abdominal Exam GI & Abdominal Exam: Distended, Normal Bowel Sounds, Soft - Extremities Exam Extremities exam: Positive for: normal inspection - Neurological Exam Neurological exam: Altered Results - Vital Signs Recent Vital Signs: Last Vital Signs Temp 97.5 F L 07/11/17 11:33 Pulse 101 H 07/11/17 10:12 Resp 19 07/11/17 10:12 BP 105/71 07/11/17 10:12 Pulse Ox 98 07/11/17 10:12 - Labs Result Diagrams: 07/11/17 10:40 07/11/17 10:40 Assessment & Plan - Assessment and Plan (Free Text) Assessment: 56yo male with PMhx of Pancreatic Ca with AMS AMS Dehydration Leukocytosis Pancreatic Ca - currently afebrile, HD stable, SBP 120s, comfortable on 2LNC, on exam somnolent but is arousable with verbal stimuli, CT head negative, ABG with resp alkalosis, CXR clear Recommend: - IVF hydration - repeat lactate - Broad spectrum abx - hold all BP meds - check procalcitonin - panculture - monitor resp status - FS control - check UA, ulytes - DVT ppx - monitor on telemetry critical care time 32 minutes
[2017-07-11 14:33] LABS: MAGNESIUM 2.5 mg/dL (1.7-2.2); PHOSPHOROUS 3.5 mg/dL (2.5-4.5)
[2017-07-11] MEDS ORDERED: Vancomycin 1gm in NS 250ml 1 GM/250 ML BAG IVPB STA (15:09)
[2017-07-11 15:35] LABS: PH,URINE 5.5 (4.7-8.0); URINE BILIRUBIN MODERATE (NEGATIVE); URINE BLOOD NEGATIVE (NEGATIVE); URINE GLUCOSE (UA) 500 mg/dL (NEGATIVE); URINE KETONE TRACE mg/dL (NEGATIVE); URINE LEUKOCYTE ESTERASE NEGATIVE Leu/uL (NEGATIVE); URINE PROTEIN 100 mg/dL (<30 mg/dL); URINE UROBILINOGEN >=8.0 E.U./dL (<1 E.U./dL)
[2017-07-11 15:45] LABS: URINE APPEARANCE CLOUDY (CLEAR); URINE COLOR LIGHT RED (YELLOW)
[2017-07-11 16:38] LABS: URINE BACTERIA FEW (NEG); URINE RBC 0 - 2 /hpf (0-2); URINE WBC 0 - 2 /hpf (0-6)
[2017-07-11] MEDS ORDERED: Lactulose 10 gm/15 ml (Rectal Use) PR ONE (17:10)
[2017-07-11] MEDS: Piperacill/Tazo 4.5gm in NS 4.5 GM/100 ML BAG IVPB SCH (17:22)
[2017-07-11] MEDS: Insulin Reg-MEDIUM-Coverage SC SCH ×2 (17:22→23:17)
[2017-07-11] MEDS: Sodium Chloride 0.9% 1,000 ML IV SCH (17:23)
[2017-07-11] MEDS ORDERED: Pneumococcal 23-Valent Vaccine IM ONE (17:34)
--- NOTE | 2017-07-11 18:35 | PCM.SEPTIC ---
Sepsis Progress Note - Reassessment Type Date of Evaluation: 07/11/17 Time of Evaluation: 18:30 Reassessment Type: Non-invasive reassessment - Non Invasive Reassessment Were the most recent vital sign reviewed: Yes Vital Sign (Latest): Temp Pulse Resp BP Pulse Ox 97.5 F L 101 H 19 105/71 98 07/11/17 17:13 07/11/17 17:13 07/11/17 17:13 07/11/17 17:13 07/11/17 10:12 Cardiovascular: Yes: Regular Rate, Rhythm, Chest Non Tender Respiratory: Yes: Normal Breath Sounds Capillary Refill: Normal (Less than 2 sec) Skin: Normal Color, Warm, Dry
[2017-07-11 19:34] LABS: VENOUS BLOOD GAS BASE EXCESS 1.4 mmol/L (0.0-2.0); VENOUS BLOOD PH 7.48 (7.32-7.43)
--- NOTE | 2017-07-11 20:45 | CP.PCM.CON ---
Past Patient History - Infectious Disease Hx of Infectious Diseases: None - Tetanus Immunizations Tetanus Immunization: Unknown - Past Social History Smoking Status: Former Smoker - CARDIAC Hx Cardiac Disorders: Yes Hx Hypercholesterolemia: Yes Hx Hypertension: Yes - PULMONARY Hx Respiratory Disorders: Yes Hx Asthma: Yes Hx Tuberculosis: No - NEUROLOGICAL Hx Neurological Disorder: Yes (neuropathy) Hx Dementia: Yes Hx Seizures: Yes - HEENT Hx HEENT Problems: No - RENAL Hx Chronic Kidney Disease: No - ENDOCRINE/METABOLIC Hx Endocrine Disorders: Yes Hx Diabetes Mellitus Type 1: Yes Hx Hypothyroidism: Yes - HEMATOLOGICAL/ONCOLOGICAL Hx Blood Disorders: Yes Hx Cancer: Yes (pancreatic) - INTEGUMENTARY Other/Comment: multiple skin discolorations ble and dry skin - MUSCULOSKELETAL/RHEUMATOLOGICAL Hx Falls: Yes (past) - GASTROINTESTINAL Hx Gastrointestinal Disorders: Yes Other/Comment: pancreatic CA - GENITOURINARY/GYNECOLOGICAL Hx Genitourinary Disorders: No Hx Sexually Transmitted Disorders: No - PSYCHIATRIC Hx Psychophysiologic Disorder: No - SURGICAL HISTORY Hx Orthopedic Surgery: Yes (L dislocation) - ANESTHESIA Hx Anesthesia: Yes Meds Allergies/Adverse Reactions: Allergies Allergy/AdvReac Type Severity Reaction Status Date / Time No Known Allergies Allergy Verified 07/11/17 10:17 - Medications Medications: Current Medications Donepezil HCl (Aricept) 10 mg PO DAILY [facility] Piperacillin Sod/Tazobactam Sod (Zosyn 4.5 Gm In Ns 100ml) 4.5 gm in 100 mls @ 200 mls/hr IVPB Q6 AVA PRN Reason: Protocol Stop: 07/18/17 18:01 Last Admin: 07/11/17 17:22 Dose: 200 mls/hr Sodium Chloride (Sodium Chloride 0.9%) 1,000 mls @ 100 mls/hr IV .Q10H [facility] Last Admin: 07/11/17 17:23 Dose: 100 mls/hr Insulin Human Regular (Humulin R Med) 0 units SC ACHS AVA PRN Reason: Protocol Last Admin: 07/11/17 17:22 Dose: 8 units Lactulose (Enulose) 30 gm PO BID [facility] Last Admin: 07/11/17 17:13 Dose: Not Given Lidocaine (Lidoderm) 1 ea TD DAILY [facility] Ondansetron HCl (Zofran Tab) 4 mg PO Q6H PRN PRN Reason: Nausea/Vomiting Phenytoin (Dilantin) 150 mg PO BID AVA Results - Vital Signs Recent Vital Signs: Last Vital Signs Temp 97.5 F L 07/11/17 17:13 Pulse 99 H 07/11/17 18:00 Resp 19 07/11/17 17:13 BP 105/71 07/11/17 17:13 Pulse Ox 98 07/11/17 10:12 - Labs Result Diagrams: 07/11/17 10:40 07/11/17 10:40 Labs: Laboratory Results - last 24 hr 07/11/17 07/11/17 07/11/17 11:55 13:23 14:10 pO2 VBG pH VBG pCO2 VBG HCO3 VBG O2 Sat (Calc) VBG Base Excess POC Glucose (mg/dL) 392 H Phosphorus 3.5 Magnesium 2.5 H Ammonia Urine Color Light red Urine Appearance Cloudy Urine pH 5.5 Ur Specific [place] >= 1.030 Urine Protein 100 H Urine Glucose (UA) 500 H Urine Ketones Trace H Urine Blood Negative Urine Nitrate Positive H Urine Bilirubin Moderate H Urine Urobilinogen >=8.0 Ur Leukocyte Esterase Negative Urine RBC 0 - 2 Urine WBC 0 - 2 Urine Bacteria Few Hyaline Casts 2 - 5 07/11/17 07/11/17 07/11/17 14:10 16:05 16:15 pO2 VBG pH VBG pCO2 VBG HCO3 VBG O2 Sat (Calc) VBG Base Excess POC Glucose (mg/dL) 397 H Phosphorus Magnesium Ammonia 121 H 151 H* Urine Color Urine Appearance Urine pH Ur Specific [place] Urine Protein Urine Glucose (UA) Urine Ketones Urine Blood Urine Nitrate Urine Bilirubin Urine Urobilinogen Ur Leukocyte Esterase Urine RBC Urine WBC Urine Bacteria Hyaline Casts 07/11/17 19:25 pO2 78 H VBG pH 7.48 H VBG pCO2 33.0 L VBG HCO3 24.6 VBG O2 Sat (Calc) 97.9 H VBG Base Excess 1.4 POC Glucose (mg/dL) Phosphorus Magnesium Ammonia Urine Color Urine Appearance Urine pH Ur Specific [place] Urine Protein Urine Glucose (UA) Urine Ketones Urine Blood Urine Nitrate Urine Bilirubin Urine Urobilinogen Ur Leukocyte Esterase Urine RBC Urine WBC Urine Bacteria Hyaline Casts Assessment & Plan - Assessment and Plan (Free Text) Assessment: this patient was seen and evaluated earlier . This is an addendum to the GI consultation report dictated by Vale Lo APN this 56-year-old patient with advanced to pancreatic cancer status post ERCP medicine placement, admitted with sepsis . Patient is also found to be encephalopathic probably hepatic encephalopathy with elevated ammonia level. The CT scan showed a the distal portion of the common bile duct stent some debris's. On examination abdomen was soft no tenderness. Patient is receiving lactulose and edema Follow-up blood cultures and continue the antibiotics Follow-up LFTs Would consider ERCP based on the clinical course to evaluate the biliary metal stent. Thank you very much for allowing us to participate in the care of this patient
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
--- NOTE | 2017-07-11 23:09 | CP.PCM.PN ---
Subjective - Date & Time of Evaluation Date of Evaluation: 07/11/17 Time of Evaluation: 23:07 - Subjective Subjective: Patient was seen at bedside. He vomited , feels nauseous. Has an order for PO Zofran but can not have oral Zofran because he is lethargic. Nurse requested an order for IV zofran. Has no other complaints. At 02:29 , FSBS was 396 mg % , Regular insulin 10 Units SC was ordered. At 06:00, FSBS was 303 mg % , Regular insulin 6 units SC was ordered. This 56 year old male was admitted with altered mental status. Has PMH of pancreatic cancer with mets, neuro syphillis, DM II, HTN, HLD, dementia, obstructive jaundice, biliary stent, asthma, seizure. Objective - Vital Signs/Intake and Output Vital Signs (last 24 hours): Temp Pulse Resp BP Pulse Ox 97.5 F L 99 H 19 105/71 98 07/11/17 17:13 07/11/17 18:00 07/11/17 17:13 07/11/17 17:13 07/11/17 13:13 - Medications Medications: Current Medications Donepezil HCl (Aricept) 10 mg PO DAILY [facility] Piperacillin Sod/Tazobactam Sod (Zosyn 4.5 Gm In Ns 100ml) 4.5 gm in 100 mls @ 200 mls/hr IVPB Q6 [facility] PRN Reason: Protocol Stop: 07/18/17 18:01 Last Admin: 07/11/17 17:22 Dose: 200 mls/hr Sodium Chloride (Sodium Chloride 0.9%) 1,000 mls @ 100 mls/hr IV .Q10H [facility] Last Admin: 07/11/17 17:23 Dose: 100 mls/hr Insulin Human Regular (Humulin R Med) 0 units SC ACHS [facility] PRN Reason: Protocol Last Admin: 07/11/17 17:22 Dose: 8 units Lactulose (Enulose) 30 gm PO BID [facility] Last Admin: 07/11/17 17:13 Dose: Not Given Lidocaine (Lidoderm) 1 ea TD DAILY [facility] Ondansetron HCl (Zofran Tab) 4 mg PO Q6H PRN PRN Reason: Nausea/Vomiting Phenytoin (Dilantin) 150 mg PO BID [facility] - Labs Labs: PT 13.0 Seconds (9.9-11.8) H 07/11/17 10:40 INR 1.20 (0.93-1.08) H 07/11/17 10:40 APTT 26.6 Seconds (23.7-30.8) 07/11/17 10:40 - Constitutional Appears: Well, No Acute Distress - Head Exam Head Exam: ATRAUMATIC, NORMAL INSPECTION, NORMOCEPHALIC - Eye Exam Eye Exam: Normal appearance - ENT Exam ENT Exam: Normal External Ear Exam - Neck Exam Neck Exam: Normal Inspection - Respiratory Exam Respiratory Exam: NORMAL BREATHING PATTERN - Cardiovascular Exam Cardiovascular Exam: absent: JVD - GI/Abdominal Exam GI & Abdominal Exam: absent: Distended - Rectal Exam Rectal Exam: Deferred - Exam Additional comments: Deferred. - Extremities Exam Extremities Exam: Normal Inspection - Back Exam Back Exam: NORMAL INSPECTION - Neurological Exam Neurological Exam: Altered - Psychiatric Exam Psychiatric exam: Normal Affect - Skin Skin Exam: Normal Color Assessment and Plan - Assessment and Plan (Free Text) Assessment: Altered mental status. Pancreatic cancer with mets. Neurosyphillis. DM II. HTN. HLD. Dementia. Asthma. Seizure. Hyperglycemia. Gastroparesis. Plan: IV zofran was ordered. Regular insulin was ordered. Continue present medications.
--- NOTE | 2017-07-11 23:24 | CARD ---
APPROVED REPORT EKG Measurement Heart [id number] <Conclusion> Sinus tachycardia Otherwise normal ECG
[2017-07-12] MEDS: Piperacill/Tazo 4.5gm in NS 4.5 GM/100 ML BAG IVPB SCH ×5 (00:23→23:32)
--- NOTE | 2017-07-12 00:25 | CON ---
NEUROLOGY CONSULTATION DATE: 07/11/2017 CHIEF COMPLAINT: Altered mental status. HISTORY OF PRESENT ILLNESS: A 56-year-old man with history of pancreatic cancer status post chemoradiation, hypertension, diabetes, dyslipidemia, neurosyphilis, seizure disorder, asthma, schizophrenia, history of old lacunar infarction presented to the hospital because he was noted per chart at the [facility] that he was not acting himself and was lethargic in his baseline. He is currently somnolent, but arousable, wakes to verbal and noxious stimulus and he is mumbling. He is moving all extremities equally. He found to have elevated ammonia level of 151 and an elevated blood sugars of 432. His last A1c was 7.3, in 05/2017. He is on Dilantin for seizure prophylaxis and his Dilantin level is therapeutic of 16. PERTINENT PAST MEDICAL HISTORY: History of pancreatic cancer status post chemoradiation, hypertension, dyslipidemia, dementia, neurosyphilis, seizure disorder, asthma, schizophrenia, history of old lacunar infarct. REVIEW OF SYSTEMS: A 14-point review system is negative as per the HPI. FAMILY HISTORY: Noncontributory. SOCIAL HISTORY: No illicit drug use, smoking or ETOH abuse. ALLERGIES: NO KNOWN DRUG ALLERGIES. MEDICATIONS: Reviewed by nurse reconciliation. PHYSICAL EXAMINATION: GENERAL: The patient seen up in bed, drowsy. No acute distress. Moving all extremities, responding to noxious and verbal stimulus. VITAL SIGNS: Temperature 97, pulse rate of 101, blood pressure 105/71, respiration 19 and O2 saturation 98% via nasal cannula. HEENT: Atraumatic and normocephalic. PERRLA. Extraocular movements intact. NECK: Supple. No JVD. No adenopathy noted. LUNGS: Clear to auscultation. No adventitious sounds. HEART: S1 and S2, normal rate and rhythm. No murmur, rubs or gallops. ABDOMEN: Soft, nontender and nondistended. Bowel sounds present. EXTREMITIES: No clubbing, no cyanosis. Peripheral pulses 2+ felt bilaterally. NEUROLOGIC: The patient is drowsy, but arousable to noxious and verbal stimulus. Cranial nerves II through XII are intact. He is mumbling his words. Slow thought process. Motor exam; slight increased tone throughout. Moves all extremities equally. No pronator drift seen. Sensory exam; withdraws to localized to noxious stimulus. DTRs 1+ throughout. Coordination; gait deferred for now. LABORATORY DATA: Phenytoin level of 16. Blood glucose of 432. Ammonia level 151. Sodium 135, potassium 5.2, chloride 99, CO2 of 24, BUN of 28 and creatinine of 0.7. ASSESSMENT: This is a 56-year-old man with past medical history of pancreatic cancer, status post chemoradiation, hypertension, dyslipidemia, type 2 diabetes mellitus, dementia, neurosyphilis, seizure disorder, asthma, schizophrenia, history of old lacunar infarct, history of cancer, cerebral hypoperfusion to the brain causing breakthrough seizures presented with altered mental status. His mental status is likely secondary to toxic metabolic encephalopathy given that he has elevated ammonia and hyperglycemia with blood sugar of more than 170. At this time, recommend: 1. His Dilantin level is currently in therapeutic range, continue with his home dose of Dilantin. 2. Monitor electrolytes to correct accordingly, start lactulose for his hyperammonemia. 3. Keep his blood sugars at 140 to 180. Likely need ICU evaluation for hyperglycemia. Avoid hyperglycemic accelerations. 4. Keep his blood pressure systolically and diastolically on lower side, because any cerebral hypoperfusion to the brain is making him very drowsy, recommended he keep his blood pressure systolic above 120 and treat for any underlying sepsis. At this time, continue current present medical management. Thank you for this consult. Lake Gambino MD [place]
[2017-07-12] MEDS ORDERED: Insulin Reg-MEDIUM-Coverage SC STA ×2 (02:32→05:58)
[2017-07-12] MEDS: Sodium Chloride 0.9% 1,000 ML IV SCH (05:02)
[2017-07-12 08:58] LABS: BASO # 0.02 K/mm3 (0.0-2.0); BASO % 0.1 % (0.0-3.0); EOS # 0.1 (0.0-0.7); EOS % 0.6 % (1.5-5.0); GRAN # 16.73 (1.4-6.5); GRAN % 89.6 % (50.0-68.0); HEMATOCRIT 30.7 % (42.0-52.0); LYMPH # 0.6 (1.2-3.4); LYMPH % 3.3 % (22.0-35.0); MEAN CORPUSCULAR HEMOGLOBIN 28.1 pg (25.0-35.0); MEAN CORPUSCULAR HGB CONC 31.9 g/dl (31.0-37.0); MEAN PLATELET VOLUME 9.4 fl (7.0-11.0); MONO # 1.2 (0.1-0.6); MONO % 6.4 % (1.0-6.0); RED CELL DISTRIBUTION WIDTH 18.9 % (11.5-14.5); WHITE BLOOD COUNT 18.7 10^3/ul (4.5-11.0)
[2017-07-12 09:22] LABS: INR 1.22 (0.93-1.08); PARTIAL THROMBOPLASTIN TIME 26.1 Seconds (23.7-30.8)
[2017-07-12 09:22] LABS: ALKALINE PHOSPHATASE 923 U/L (38-126); ALT/SGPT 40 U/L (7-56); AST/SGOT 55 U/L (17-59); BILIRUBIN,TOTAL 2.2 mg/dL (0.2-1.3); BLOOD UREA NITROGEN 22 mg/dL (7-21); CARBON DIOXIDE 26 mmol/L (21-33); CHLORIDE 107 mmol/L (95-110); GFR AFRICAN-AMERICAN > 60; GLUCOSE,RANDOM 260 mg/dL (70-110); POTASSIUM 4.2 mmol/L (3.6-5.0); SODIUM 140 mmol/L (132-148)
[2017-07-12 09:32] LABS: ALB/GLOB RATIO 0.8 (1.1-1.8); TOTAL PROTEIN 6.2 g/dL (5.8-8.3)
--- NOTE | 2017-07-12 09:39 | CP.PCM.PN ---
Subjective - Date & Time of Evaluation Date of Evaluation: 07/12/17 Time of Evaluation: 09:15 - Subjective Subjective: pt seen to be somnolent but arousable and protecting airway . Hepatic encephalopathy in the setting of advanced pancreatic ca. Objective - Vital Signs/Intake and Output Vital Signs (last 24 hours): Temp Pulse Resp BP Pulse Ox 97.6 F 99 H 18 117/74 97 07/12/17 06:00 07/12/17 06:00 07/12/17 06:00 07/12/17 06:00 07/12/17 06:00 Intake and Output: 07/12/17 07/12/17 06:59 18:59 Intake Total 1200 Output Total 500 Balance 1200 -500 - Medications Medications: Current Medications Donepezil HCl (Aricept) 10 mg PO DAILY [facility] Piperacillin Sod/Tazobactam Sod (Zosyn 4.5 Gm In Ns 100ml) 4.5 gm in 100 mls @ 200 mls/hr IVPB Q6 [facility] PRN Reason: Protocol Stop: 07/18/17 18:01 Last Admin: 07/12/17 05:01 Dose: 200 mls/hr Sodium Chloride (Sodium Chloride 0.9%) 1,000 mls @ 100 mls/hr IV .Q10H [facility] Last Admin: 07/12/17 05:02 Dose: 100 mls/hr Lactulose (Enulose) 30 gm PO BID [facility] Last Admin: 07/11/17 17:13 Dose: Not Given Lidocaine (Lidoderm) 1 ea TD DAILY [facility] Ondansetron HCl (Zofran Tab) 4 mg PO Q6H PRN PRN Reason: Nausea/Vomiting Phenytoin (Dilantin) 150 mg PO BID [facility] - Labs Labs: 07/12/17 08:30 PT 13.2 Seconds (9.9-11.8) H 07/12/17 09:00 INR 1.22 (0.93-1.08) H 07/12/17 09:00 APTT 26.1 Seconds (23.7-30.8) 07/12/17 09:00 - Constitutional Appears: Confused, Cachectic - Head Exam Head Exam: NORMAL INSPECTION - Eye Exam Eye Exam: EOMI - ENT Exam ENT Exam: Mucous Membranes Moist - Neck Exam Neck Exam: Full ROM - Cardiovascular Exam Cardiovascular Exam: REGULAR RHYTHM - GI/Abdominal Exam GI & Abdominal Exam: Soft - Extremities Exam Extremities Exam: Full ROM - Back Exam Back Exam: NORMAL INSPECTION - Neurological Exam Neurological Exam: Altered - Skin Skin Exam: Normal Color Assessment and Plan - Assessment and Plan (Free Text) Assessment: 56 y/o M w/ hepatic encephalopathy in the setting of advanced pancreatic ca. Hepatic encephalopathy with elevated ammonia . Start ORAL Lactulose via NGT and rectal lactulose as long as there isn't any [place] blood loss. CMP and INR pending. Keep hgb> 7 , platelets > 100K and INR< 2 Onc and G.I following. If any need for rising T BIli may need ERCP per GI dvt P SCD PPI BID cc time 55 min can be monitored in the ICU
[2017-07-12 09:57] LABS: MAGNESIUM 2.9 mg/dL (1.7-2.2); PHOSPHOROUS 2.8 mg/dL (2.5-4.5)
--- NOTE | 2017-07-12 09:57 | HP ---
CHIEF COMPLAINT: Altered mental status, lethargy, and fatigue. HISTORY OF PRESENT ILLNESS: The patient is a 56-year-old male with history of pancreatic cancer with metastasis, actually came to Oncology Clinic, and they found the patient to have altered mental status. They sent the patient to the emergency room. The patient was very lethargic, not able to answer any questions, but according to long-term documentation, the patient is not at baseline. I saw the patient in telemetry. No fever, no chills, but he is very lethargic, just opening eyes with command, somnolent, only stimulate to verbal and noxious stimuli, mumbling. We tried to send the patient to the unit, but according to needle punch machine operator criteria, the patient is not a candidate for unit admission, the patient is full code. PAST MEDICAL HISTORY: Pancreatic cancer, neurosyphilis, diabetes mellitus, hypertension, hypercholesterolemia, dementia. The patient has history of obstructive jaundice, has biliary stent in place. History of hypertension, asthma, seizures, pancreatic cancer with metastasis. FAMILY HISTORY: Father and mother, noncontributory. HABITS: No smoking. No drug. No ethanol.. ALLERGIES: THE PATIENT IS NOT ALLERGIC TO ANY MEDICATIONS. HOME MEDICATIONS: Clozaril, lidocaine, Zofran, trazodone, Tylenol, Dilantin, insulin, magnesium oxide. REVIEW OF SYSTEMS: The patient is examined at the bedtime in the telemetry, is very lethargic, somnolent, opening eyes with verbal and noxious stimuli. He is not able to give review of systems. PHYSICAL EXAMINATION VITAL SIGNS: Temperature 97.5, pulse 99, blood pressure 105/71, respiratory rate 19. HEENT: Head, normocephalic and atraumatic. Eyes, PERRLA. Extraocular muscles intact. Conjunctivae clear. Nose patent. Mucous membranes moist. NECK: Supple. No carotid bruits, JVD, or thyromegaly. CHEST: Bilaterally symmetrical. HEART: S1, S2 positive. LUNGS: Clear to auscultation. ABDOMEN: Soft. Bowel sounds present. No organomegaly. EXTREMITIES: No edema, no cyanosis. NEUROLOGICAL: The patient is sleepy, arousable. Cannot do complete neurological examination. LABORATORY DATA: White blood cells 21.8, hemoglobin 10.5, hematocrit 31.9, platelets 630. Glucose 379, magnesium 2.5, ammonia level 121, repeat is 151. ASSESSMENT AND PLAN: The patient is a 56-year-old male with leukocytosis, anemia, diabetes mellitus, hypermagnesemia, hepatic encephalopathy, proteinuria, glucosuria, ketonuria, urinary tract infection. Dilantin level is within normal limits. Seen by Dr. Guerrero, flame cutting supervisor, came with altered mental status. The patient has advanced pancreatic cancer, status post ERCP, now has sepsis, hepatic encephalopathy, ammonia level is high. CT scan showed distal portion of the common bile duct stent, started the patient on lactulose, Dr. Guerrero, need ERCP based on the clinical course of evaluation and biliary metal stent. History of asthma, [place] esophagus, seizures, neurosyphilis, hypertension, diabetes mellitus, schizophrenia, now has altered mental status. History of superior mesenteric vein thrombus, rule out cholangitis. We will repeat ammonia level, right now trending up. Continue IV fluids. Antibiotics as per ID. Check prolactin level, pancultures. We will do respiratory status. Fingerstick control, put on sliding scale. GI and DVT prophylaxis. Discussion done with Dr. Castañeda , ER physician. We will follow up. Michelle Castillo MD MTDD
--- NOTE | 2017-07-12 10:05 | CP.PCM.PN ---
<Vale Lo - Last Filed: 07/12/17 11:44> Subjective - Date & Time of Evaluation Date of Evaluation: 07/12/17 Time of Evaluation: 08:20 - Subjective Subjective: Seen and examined at the bedside this morning, chart was reviewed. Patient is lethargic and non-verbally responsive. Mildly responsive to painful stimuli. Patient received lactulose per rectum yesterday and reported to have few BMs last night and this morning. No reports of any melena or bright red blood per rectum. Patient did have episode of brown vomitus as per nursing. Objective - Vital Signs/Intake and Output Vital Signs (last 24 hours): Temp Pulse Resp BP Pulse Ox 97.6 F 99 H 18 117/74 97 07/12/17 06:00 07/12/17 06:00 07/12/17 06:00 07/12/17 06:00 07/12/17 06:00 Intake and Output: 07/12/17 07/12/17 06:59 18:59 Intake Total 1200 Output Total 500 Balance 1200 -500 - Medications Medications: Current Medications Donepezil HCl (Aricept) 10 mg PO DAILY [facility] Piperacillin Sod/Tazobactam Sod (Zosyn 4.5 Gm In Ns 100ml) 4.5 gm in 100 mls @ 200 mls/hr IVPB Q6 [facility] PRN Reason: Protocol Stop: 07/18/17 18:01 Last Admin: 07/12/17 05:01 Dose: 200 mls/hr Sodium Chloride (Sodium Chloride 0.9%) 1,000 mls @ 100 mls/hr IV .Q10H [facility] Last Admin: 07/12/17 05:02 Dose: 100 mls/hr Lactulose (Enulose) 30 gm PO BID [facility] Last Admin: 07/11/17 17:13 Dose: Not Given Lidocaine (Lidoderm) 1 ea TD DAILY [facility] Ondansetron HCl (Zofran Tab) 4 mg PO Q6H PRN PRN Reason: Nausea/Vomiting Phenytoin (Dilantin) 150 mg PO BID [facility] - Labs Labs: 07/12/17 08:30 07/12/17 08:30 PT 13.2 Seconds (9.9-11.8) H 07/12/17 09:00 INR 1.22 (0.93-1.08) H 07/12/17 09:00 APTT 26.1 Seconds (23.7-30.8) 07/12/17 09:00 - Constitutional Appears: Confused, Cachectic - Head Exam Head Exam: NORMOCEPHALIC - Eye Exam Eye Exam: absent: Scleral icterus - ENT Exam ENT Exam: Mucous Membranes Moist - Neck Exam Neck Exam: Normal Inspection - Respiratory Exam Respiratory Exam: Decreased Breath Sounds. absent: Respiratory Distress - Cardiovascular Exam Cardiovascular Exam: +S1, +S2 - GI/Abdominal Exam GI & Abdominal Exam: Distended, Hypoactive Bowel Sounds. absent: Guarding, Tenderness, Rebound - Extremities Exam Extremities Exam: Normal Capillary Refill. absent: Pedal Edema - Neurological Exam Neurological Exam: Altered - Skin Skin Exam: Dry, Warm Additional comments: jaundice Assessment and Plan - Assessment and Plan (Free Text) Assessment: ASSESSMENT: 56-year-old male with PMH Pancreatic Cancer w/ metastasis, superior mesenteric vein thrombus admitted for altered mental status Hepatic encephalopathy may be secondary to sepsis Sepsis, rule out cholangitis Hematemesis Elevated LFT, r/o stent obstruction, ct scan from 06/2017 films were reviewed w/ Dr. 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 ct scan abdomen and pelvis with no contrast Will consider ERCP based upon clinical course. Seen and discussed w/ Dr. Guerrero. <Harjeet Guerrero V - Last Filed: 07/12/17 20:54> Objective - Vital Signs/Intake and Output Vital Signs (last 24 hours): Temp Pulse Resp BP Pulse Ox 97.7 F 94 H 18 117/74 97 07/12/17 12:00 07/12/17 14:00 07/12/17 06:00 07/12/17 06:00 07/12/17 06:00 Intake and Output: 07/12/17 07/13/17 18:59 06:59 Intake Total 1560 Output Total 1402 Balance 158 - Medications Medications: Current Medications Donepezil HCl (Aricept) 10 mg PO DAILY [facility] Last Admin: 07/12/17 13:53 Dose: 10 mg Piperacillin Sod/Tazobactam Sod (Zosyn 4.5 Gm In Ns 100ml) 4.5 gm in 100 mls @ 200 mls/hr IVPB Q6 [facility] PRN Reason: Protocol Stop: 07/18/17 18:01 Last Admin: 07/12/17 05:01 Dose: 200 mls/hr Sodium Chloride (Sodium Chloride 0.9%) 1,000 mls @ 100 mls/hr IV .Q10H [facility] Last Admin: 07/12/17 05:02 Dose: 100 mls/hr Phenytoin 150 mg/ Sodium (Chloride) 53 mls @ 104 mls/hr IVPB Q12H [facility] Last Admin: 07/12/17 19:58 Dose: 104 mls/hr Lactulose (Enulose) 30 gm NG Q2H [facility] Stop: 07/14/17 14:46 Lidocaine (Lidoderm) 1 ea TD DAILY [facility] Last Admin: 07/12/17 11:00 Dose: 1 ea Ondansetron HCl (Zofran Tab) 4 mg PO Q6H PRN PRN Reason: Nausea/Vomiting Pantoprazole Sodium (Protonix Inj) 40 mg IVP Q12H [facility] Last Admin: 07/12/17 11:00 Dose: 40 mg - Labs Labs: 07/12/17 18:45 07/12/17 17:00 PT 13.2 Seconds (9.9-11.8) H 07/12/17 09:00 INR 1.22 (0.93-1.08) H 07/12/17 09:00 APTT 26.1 Seconds (23.7-30.8) 07/12/17 09:00 Attending/Attestation - Attestation I have personally seen and examined this patient.: Yes I have fully participated in the care of the patient.: Yes I have reviewed all pertinent clinical information, including history, physical exam and plan: Yes Notes (Text): 07/12/17 20:50 patient was seen and evaluated earlier. This is an addendum to the GI progress report dictated by Vale Lo APN patient still remains lethargic. Earlier evens reviewed. receiving lactulose via NG tube, patient did receive lactulose enema yesterday was the pancreatic cancer status post metal stent placement in March of this sepsis probably cholangitis Continue antibiotics as per ID Follow up with LFTs would consider EUS/ERCP based on the clinical course Thank you very much following this to participate in the care of the patient
[2017-07-12 10:09] LABS: TROPONIN I < 0.01 ng/mL
--- NOTE | 2017-07-12 10:25 | PCM.RRT ---
DIRECTOR OF CODING Nurse Assessment - Situation Date: 07/12/17 Time DIRECTOR OF CODING was called: 09:26 DIRECTOR OF CODING Responder Arrival Time: 09:23 DIRECTOR OF CODING Location:: [address] [place] [address] Room Number: 271-2 DIRECTOR OF CODING Reason for Call: Not Responding to Urgent Treatment, Change in Mental Status DIRECTOR OF CODING Called By: RN - IV IV Inserted during DIRECTOR OF CODING?: No IV Fluids Initiated During DIRECTOR OF CODING?: No - Respiratory Oxygen Delivery Method: Nasal Cannula @L/min Oxygen Flow Rate: 2 Received Nebulizer Treatments:: No Was the Patient Ventilated with Bag/Mask 100% O2?: No Secretions Suctioned?: Yes Was the Patient Intubated?: No Was the Patient Placed on a Ventilator?: No - Diagnostic Test Ordered EKG: Yes Chest X-Ray: Yes - Stat Labs Ordered DIRECTOR OF CODING Stat Labs Ordered: CBC, BMP, PT/PTT DIRECTOR OF CODING Other Labs Ordered: prolactin, phenytoin CPR started during DIRECTOR OF CODING?: No - Vital Signs Vital Sign: Rapid Response Vital Sign Blood Pressure 109/77 Pulse Rate 101 Respiratory Rate 22 Temperature 98.2 F Oxygen Saturation 96 - Tina Coma Scale Coma Scale Eye Opening: To verbal stimuli Coma Scale Motor: Movement to pain stimulus Coma Scale Verbal: Inappropriate words - Recommendations 5) DIRECTOR OF CODING Level of Care Recommendations: Transfer to ICU Notifications: Attending Physician, Consultations I.Reason for DIRECTOR OF CODING - A) Acute Change in Patient: (Select all that apply): Acute change in mental status, Uncontrolled Bleeding, Hemoptysis, Hematemesis, Melena - Respiratory Oxygen Delivery Method: Nasal Cannula @L/min Oxygen Flow Rate: 2 - Constitutional Appears: Chronically Ill - Head Head Exam: NORMOCEPHALIC - Eyes Eye Exam: PERRL - Respiratory Exam Respiratory Exam: Clear to Ausculation Bilateral - Cardiovascular Exam Cardiovascular Exam: Tachycardia - GI/Abdominal Exam GI & Abdominal Exam: Distended - Neurological Exam Neurological Exam: absent: Alert Additional exam: somnolent - Extremities Exam Extremities Exam: absent: Pedal Edema Plan - Assessment of Findings&Treatment Plan Lavon Oleary D.O. PGY-2, D.O. On Duty (D.O.O.D.) Received page from RN that patient had hematemesis and to please respond at bedside. Responded at bedside prior to DIRECTOR OF CODING. 56 year old male with PMH pancreatic CA who had what appeared to be hematemesis, abdomen distended, somewhat somnolent per nursing more than previously was, came in with what appears to be hepatic encephalopathy. DIRECTOR OF CODING called by nurse shortly thereafter, they had spoken with Dr. Guerrero who wanted ICU evaluation. NGT placed at bedside by myself had immediately had copious black emesis output which was placed to intermittent suction. Patient pulling at tube so restraints ordered. [employer] presented at bedside and accepted the patient to the ICU for further monitoring. STAT labs drawn. Accompanied patient to ICU. Discussed with director professional services. [employer] discussed with Dr. Jonathan GUERRA. Patient to begin receiving lactulose.
--- NOTE | 2017-07-12 10:37 | RAD ---
PROCEDURE: Portable chest HISTORY: NGT placement COMPARISON: TECHNIQUE: Single view FINDINGS: The nasogastric tube is in satisfactory position. No other interval change IMPRESSION: Nasogastric tube in satisfactory position
[2017-07-12] MEDS ORDERED: Phenytoin 100 mg/4 ml Oral Susp UD PO SCH (10:51)
[2017-07-12] MEDS: Lidocaine 5% Patch TD SCH (11:00)
--- NOTE | 2017-07-12 12:29 | CP.PCM.CON ---
History of Present Illness - History of Present Illness History of Present Illness: 56 year old male with PMH of pancreatic cancer with liver metastases S/P chemotherapy and radiation, HTN, DM, dementia, history of neurosyphilis, seizure disorder, asthma, schizophrenia was sent to [facility] from his oncologist's office because of lethargy and confusion. He was apparently noted in the jail to be acting differently and not very active. There was no note of fever, no loss of consciousness, no trauma to the head, no diarrhea, no vomiting, no seizures. He was initially admitted in telemetry but upgraded to the ICU this morning because of worsening somnolence. He was noted to have leukocytosis as well, and his ammonia level is elevated. Infectious diseases consult is requested to further evaluate and manage. Full review of systems is unobtainable because of the patient's altered mental status. Review of Systems - Review of Systems Systems not reviewed;Unavailable: Altered Mental Status Past Patient History - Infectious Disease Hx of Infectious Diseases: None - Tetanus Immunizations Tetanus Immunization: Unknown - Past Social History Smoking Status: Former Smoker - CARDIAC Hx Cardiac Disorders: Yes Hx Hypertension: Yes - PULMONARY Hx Respiratory Disorders: Yes Hx Asthma: Yes Hx Tuberculosis: No - NEUROLOGICAL Hx Neurological Disorder: Yes Hx Dementia: Yes Hx Seizures: Yes - HEENT Hx HEENT Problems: No - RENAL Hx Chronic Kidney Disease: No - ENDOCRINE/METABOLIC Hx Endocrine Disorders: Yes Hx Diabetes Mellitus Type 1: Yes Hx Hypothyroidism: Yes - HEMATOLOGICAL/ONCOLOGICAL Hx Blood Disorders: Yes Hx Cancer: Yes (pancreatic) - INTEGUMENTARY Hx Dermatological Problems: No - MUSCULOSKELETAL/RHEUMATOLOGICAL Hx Musculoskeletal Disorders: Yes Hx Falls: Yes - GASTROINTESTINAL Hx Gastrointestinal Disorders: Yes Other/Comment: pancreatic CA - GENITOURINARY/GYNECOLOGICAL Hx Genitourinary Disorders: No Hx Sexually Transmitted Disorders: No - PSYCHIATRIC Hx Psychophysiologic Disorder: No Hx Substance Use: No - SURGICAL HISTORY Hx Orthopedic Surgery: Yes (L dislocation) - ANESTHESIA Hx Anesthesia: Yes Meds Allergies/Adverse Reactions: Allergies Allergy/AdvReac Type Severity Reaction Status Date / Time No Known Allergies Allergy Verified 07/11/17 10:17 Physical Exam - Constitutional Appears: Other (somnolent, opens eyes to verbal and tactile stimuli but does not respond to commands) - Head Exam Head Exam: NORMAL INSPECTION - Neck Exam Neck exam: Negative for: Meningismus - Respiratory Exam Respiratory Exam: Decreased Breath Sounds - Cardiovascular Exam Cardiovascular Exam: +S1, +S2 - GI/Abdominal Exam GI & Abdominal Exam: Distended, Soft. absent: Tenderness Results - Vital Signs Recent Vital Signs: Last Vital Signs Temp 97.5 F L 07/11/17 11:33 Pulse 101 H 07/11/17 10:12 Resp 19 07/11/17 10:12 BP 105/71 07/11/17 10:12 Pulse Ox 98 07/11/17 10:12 - Labs Result Diagrams: 07/12/17 08:30 07/12/17 08:30 Labs: Laboratory Results - last 24 hr 07/11/17 07/11/17 14:10 14:10 Phosphorus 3.5 Magnesium 2.5 H Ammonia 121 H Assessment & Plan - Assessment and Plan (Free Text) Plan: Assessment Systemic Inflammatory Response Syndrome, R/O sepsis R/O spontaneous bacterial peritonitis, R/O biliary tract infection acute encephalopathy probably due to hepatic encephalopathy pancreatic cancer with liver metastases S/P chemotherapy and radiation HTN DM dementia history of neurosyphilis seizure disorder asthma schizophrenia Plan follow up blood and urine cx and PCT; CXR only showed atelectasis; follow up abdominal ultrasound gave a dose of IV Vancomycin and started Zosyn follow up GI plans for evaluation of the common bile duct (has stent there because of blockage associated with pancreatic cancer) continue treatment for hepatic encephalopathy (ie. lactulose and Rifaximin) will monitor clinically Overall prognosis is poor
--- NOTE | 2017-07-12 13:09 | CP.PCM.PN ---
<Jorge Mckinley - Last Filed: 07/13/17 06:40> Subjective - Date & Time of Evaluation Date of Evaluation: 07/12/17 Time of Evaluation: 10:30 - Subjective Subjective: Neurology Progress Note for Dr. Gambino service Patient seen and examined at bedside in the ICU. Earlier this AM, a rapid response was called due to the patient experiencing an acute episode of hematemesis, worsened abdominal distension, and worsened mental status concerning for hepatic encephalopathy (given known increased ammonia lvl, 182). Patient had NGT placed for drainage of gastric contents as well as for access for further lactulose, as MI lactulose did not improve his ammonia level. He drained copious black emesis, and was then transferred to the ICU, as per the responding shafting worker. Currently in the ICU, patient very lethargic, responsive to some physical and verbal stimuli, but otherwise minimally responsive, non-verbal. Objective - Vital Signs/Intake and Output Vital Signs (last 24 hours): Temp Pulse Resp BP Pulse Ox 97.6 F 99 H 18 117/74 97 07/12/17 06:00 07/12/17 06:00 07/12/17 06:00 07/12/17 06:00 07/12/17 06:00 Intake and Output: 07/12/17 07/12/17 06:59 18:59 Intake Total 1200 Output Total 500 Balance 1200 -500 - Medications Medications: Current Medications Donepezil HCl (Aricept) 10 mg PO DAILY [facility] Piperacillin Sod/Tazobactam Sod (Zosyn 4.5 Gm In Ns 100ml) 4.5 gm in 100 mls @ 200 mls/hr IVPB Q6 [facility] PRN Reason: Protocol Stop: 07/18/17 18:01 Last Admin: 07/12/17 05:01 Dose: 200 mls/hr Sodium Chloride (Sodium Chloride 0.9%) 1,000 mls @ 100 mls/hr IV .Q10H [facility] Last Admin: 07/12/17 05:02 Dose: 100 mls/hr Lactulose (Enulose) 30 gm NG Q4H [facility] Stop: 07/14/17 10:31 Lidocaine (Lidoderm) 1 ea TD DAILY [facility] Ondansetron HCl (Zofran Tab) 4 mg PO Q6H PRN PRN Reason: Nausea/Vomiting Pantoprazole Sodium (Protonix Inj) 40 mg IVP Q12H [facility] Phenytoin (Dilantin) 150 mg PO BID [facility] - Labs Labs: 07/12/17 08:30 07/12/17 08:30 PT 13.2 Seconds (9.9-11.8) H 07/12/17 09:00 INR 1.22 (0.93-1.08) H 07/12/17 09:00 APTT 26.1 Seconds (23.7-30.8) 07/12/17 09:00 - Constitutional Appears: Other (Lethargic/Somnolent, minimally responsive) - Head Exam Head Exam: ATRAUMATIC, NORMAL INSPECTION, NORMOCEPHALIC - Eye Exam Eye Exam: Normal appearance, PERRL, Scleral icterus (mild icterus bilaterally). absent: Conjunctival injection, EOMI (minimal eye movement away from direct light challenge for PERRL assessment, not following commands for EOMI assessment ) Pupil Exam: NORMAL ACCOMODATION, PERRL. absent: Fixed, Irregular, Unequal - ENT Exam ENT Exam: Mucous Membranes Moist Additional comments: NGT in place, fixed to place with tape, suctioning green-black gastric contents , no bright red blood note in contents noted appears to be protecting airway - Neck Exam Neck Exam: Full ROM (passive ROM intact; patient not following commands for ROM testing, and minimal spontaneous movement). absent: Lymphadenopathy, Thyromegaly - Respiratory Exam Respiratory Exam: Decreased Breath Sounds (in all gabriel), Rales (faint bibasilar rales), NORMAL BREATHING PATTERN. absent: Accessory Muscle Use, Chest Wall Tenderness, Clear to Ausculation Bilateral, Prolonged Expiratory Phase, Rhonchi, Wheezes, Respiratory Distress, Stridor - Cardiovascular Exam Cardiovascular Exam: Tachycardia, REGULAR RHYTHM, +S1, +S2. absent: Bradycardia , Irregular Rhythm, JVD, RRR, +S4 - GI/Abdominal Exam GI & Abdominal Exam: Distended, Firm, Diminished Bowel Sounds. absent: Rigid, Soft, Hyperactive Bowel Sounds, Hypoactive Bowel Sounds, Normal Bowel Sounds - Rectal Exam Rectal Exam: Deferred - Extremities Exam Extremities Exam: absent: Joint Swelling, Pedal Edema - Neurological Exam Additional comments: somnolent/lethargic but occasionally minimally arousable, not alert, reacts to some verbal and noxious physical stimuli Minimal spontaneous movements, holding all extremities flaccidly - Psychiatric Exam Additional comments: unable to assess due to minimally responsive/non-verbal state - Skin Skin Exam: Dry, Intact, Warm. absent: Normal Color (some icterus noted, predominantly at feet) Assessment and Plan - Assessment and Plan (Free Text) Assessment: This is a 56 yo M with PMH of pancreatic Ca s/p chemo-rads, HTN, DM, dyslipidemia, neurosyphillus, seizures, asthma schizophrenia, and prior lacunar infarcts who presented initially to [facility] with complaint of weakness and altered mental status (sent from oncology clinic), and later developed worsening mental status and hematemesis. He in now in the ICU. His altered mental status is likely due to toxic metabolic encephalopathy with an additional component of hepatic encephalopathy given his highly elevated ammonia, all in the setting of underlying pancreatic cancer. Plan: 1) Continue dilantin for seizure ppx; can convert to IV formulation at same dose (150mg BID) 2) Avoid sedative medications 3) Obtain set of blood culture due to his new leukocytosis 4) f/u GI recs 5) continue medical management as per ICU Patient reviewed, discussed, and seen with attending, Dr. Gambino. <Lake Gambino - Last Filed: 07/13/17 09:54> Objective - Vital Signs/Intake and Output Vital Signs (last 24 hours): Temp Pulse Resp BP Pulse Ox 97.8 F 118 H 29 H 104/61 96 07/12/17 20:00 07/13/17 08:20 07/13/17 08:20 07/13/17 07:00 07/13/17 08:20 Intake and Output: 07/13/17 07/13/17 06:59 18:59 Intake Total 1400 Output Total 550 Balance 850 - Medications Medications: Current Medications Donepezil HCl (Aricept) 10 mg PO DAILY [facility] Last Admin: 07/13/17 09:20 Dose: 10 mg Piperacillin Sod/Tazobactam Sod (Zosyn 4.5 Gm In Ns 100ml) 4.5 gm in 100 mls @ 200 mls/hr IVPB Q6 [facility] PRN Reason: Protocol Stop: 07/18/17 18:01 Last Admin: 07/13/17 06:22 Dose: 200 mls/hr Phenytoin 150 mg/ Sodium (Chloride) 53 mls @ 104 mls/hr IVPB Q12H [facility] Last Admin: 07/13/17 05:05 Dose: 104 mls/hr Potassium Chloride 20 meq/ (Sodium Chloride) 1,010 mls @ 100 mls/hr IV .Q10H6M [facility] Lactulose (Enulose) 30 gm NG Q2H [facility] Stop: 07/14/17 14:46 Last Admin: 07/13/17 09:20 Dose: 30 gm Lidocaine (Lidoderm) 1 ea TD DAILY [facility] Last Admin: 07/12/17 11:00 Dose: 1 ea Ondansetron HCl (Zofran Tab) 4 mg PO Q6H PRN PRN Reason: Nausea/Vomiting Pantoprazole Sodium (Protonix Inj) 40 mg IVP Q12H [facility] Last Admin: 07/13/17 09:20 Dose: 40 mg - Labs Labs: 07/13/17 06:45 07/13/17 06:45 PT 13.2 Seconds (9.9-11.8) H 07/12/17 09:00 INR 1.22 (0.93-1.08) H 07/12/17 09:00 APTT 26.1 Seconds (23.7-30.8) 07/12/17 09:00 Attending/Attestation - Attestation I have personally seen and examined this patient.: Yes I have fully participated in the care of the patient.: Yes I have reviewed all pertinent clinical information, including history, physical exam and plan: Yes
--- NOTE | 2017-07-12 17:16 | US ---
HISTORY: rule out cholecystitis, ascites COMPARISON: CT abdomen and pelvis with contrast performed 06/15/17 TECHNIQUE: Sonographic evaluation of the abdomen. FINDINGS: Examination markedly limited due to bowel gas and patient condition. LIVER: Measures 13.5 cm in sagittal dimension. Heterogeneous echotexture. Echogenic liver may be seen in setting of hepatic parenchymal disease or fatty infiltration. Metastatic lesions demonstrated within the liver on prior CT cannot be adequately assessed on this examination. The main portal vein appears patent with normal directional flow. Small perihepatic ascites. GALLBLADDER: No gallstones. No gallbladder wall thickening. Negative sonographic Macario's sign as assessed by the hand stoner. COMMON BILE DUCT: Measures 9 mm. CBD stent. PANCREAS: Not well visualized. RIGHT KIDNEY: Measures 10.8 x 5.3 x 5.1cm. No obstructing calculus or hydronephrosis identified. LEFT KIDNEY: Measures 10.8 x 5.4 x 4.4cm. No obstructing calculus or hydronephrosis identified. SPLEEN: Measures approximately 13.2 cm. AORTA: Not well-visualized. IVC: Not well-visualized. OTHER FINDINGS: None. IMPRESSION: Markedly limited study as above. Heterogeneous echogenic hepatic parenchyma may be related to hepatic parenchymal disease or fatty infiltration. Metastatic lesions demonstrated within the liver on prior CT cannot be adequately assessed on this limited examination. Small perihepatic ascites. The pancreas was not visualized. CBD stent.
[2017-07-12 17:36] LABS: BLOOD UREA NITROGEN 19 mg/dL (7-21); CALCIUM 7.9 mg/dL (8.4-10.5); CARBON DIOXIDE 25 mmol/L (21-33); CHLORIDE 110 mmol/L (98-107); GFR AFRICAN-AMERICAN > 60; GLUCOSE,RANDOM 184 mg/dL (70-110); POTASSIUM 3.6 mmol/L (3.6-5.0); SODIUM 144 mmol/L (132-148)
--- NOTE | 2017-07-12 17:45 | CARD ---
APPROVED REPORT EKG Measurement Heart [id number] <Conclusion> Sinus tachycardia Left axis deviation Low voltage QRS Abnormal ECG
[2017-07-12] MEDS ORDERED: Phenytoin 100 mg/2 ml Inj IVP SCH (18:00)
[2017-07-12 19:27] LABS: HEMATOCRIT 31.5 % (42.0-52.0); MEAN CELL VOLUME 88.7 fl (80.0-105.0); MEAN CORPUSCULAR HEMOGLOBIN 28.2 pg (25.0-35.0); MEAN CORPUSCULAR HGB CONC 31.7 g/dl (31.0-37.0); MEAN PLATELET VOLUME 9.6 fl (7.0-11.0); RED CELL DISTRIBUTION WIDTH 19.1 % (11.5-14.5); WHITE BLOOD COUNT 17.6 10^3/ul (4.5-11.0)
[2017-07-12] MEDS: PHENYTOIN IVPB SCH (19:58)
[2017-07-12] MEDS: SODIUM CHLORIDE 0.9% IVPB SCH (19:58)
[2017-07-13 00:47] LABS: HEMATOCRIT 30.2 % (42.0-52.0); MEAN CELL VOLUME 88.6 fl (80.0-105.0); MEAN CORPUSCULAR HEMOGLOBIN 28.4 pg (25.0-35.0); MEAN CORPUSCULAR HGB CONC 32.1 g/dl (31.0-37.0); MEAN PLATELET VOLUME 9.5 fl (7.0-11.0); RED CELL DISTRIBUTION WIDTH 19.3 % (11.5-14.5); WHITE BLOOD COUNT 14.8 10^3/ul (4.5-11.0)
[2017-07-13 01:15] LABS: BLOOD UREA NITROGEN 18 mg/dL (7-21); CALCIUM 8.1 mg/dL (8.4-10.5); CARBON DIOXIDE 26 mmol/L (21-33); CHLORIDE 111 mmol/L (98-107); GFR AFRICAN-AMERICAN > 60; GLUCOSE,RANDOM 197 mg/dL (70-110); POTASSIUM 3.4 mmol/L (3.6-5.0); SODIUM 145 mmol/L (132-148)
[2017-07-13] MEDS: Sodium Chloride 0.9% 1,000 ML IV SCH (02:49)
[2017-07-13] MEDS: PHENYTOIN IVPB SCH ×2 (05:05→18:30)
[2017-07-13] MEDS: SODIUM CHLORIDE 0.9% IVPB SCH ×2 (05:05→18:30)
[2017-07-13] MEDS: Piperacill/Tazo 4.5gm in NS 4.5 GM/100 ML BAG IVPB SCH ×3 (06:22→17:45)
[2017-07-13 07:14] LABS: BASO # 0.02 K/mm3 (0.0-2.0); BASO % 0.1 % (0.0-3.0); EOS # 0.1 (0.0-0.7); EOS % 0.7 % (1.5-5.0); GRAN # 14.53 (1.4-6.5); GRAN % 88.8 % (50.0-68.0); HEMATOCRIT 32.1 % (42.0-52.0); LYMPH # 0.6 (1.2-3.4); LYMPH % 3.4 % (22.0-35.0); MEAN CELL VOLUME 88.9 fl (80.0-105.0); MEAN CORPUSCULAR HEMOGLOBIN 27.7 pg (25.0-35.0); MEAN CORPUSCULAR HGB CONC 31.2 g/dl (31.0-37.0); MEAN PLATELET VOLUME 9.7 fl (7.0-11.0); MONO # 1.2 (0.1-0.6); RED CELL DISTRIBUTION WIDTH 19.4 % (11.5-14.5); WHITE BLOOD COUNT 16.4 10^3/ul (4.5-11.0)
[2017-07-13 07:39] LABS: ALB/GLOB RATIO 0.9 (1.1-1.8); ALKALINE PHOSPHATASE 1041 U/L (38-126); ALT/SGPT 43 U/L (7-56); AST/SGOT 59 U/L (17-59); BILIRUBIN,TOTAL 2.4 mg/dL (0.2-1.3); BLOOD UREA NITROGEN 17 mg/dL (7-21); CALCIUM 8.1 mg/dL (8.4-10.5); CARBON DIOXIDE 24 mmol/L (21-33); CHLORIDE 113 mmol/L (98-107); GFR AFRICAN-AMERICAN > 60; GLUCOSE,RANDOM 209 mg/dL (70-110); POTASSIUM 3.4 mmol/L (3.6-5.0); SODIUM 147 mmol/L (132-148); TOTAL PROTEIN 6.3 g/dL (5.8-8.3)
--- NOTE | 2017-07-13 08:02 | CON ---
DATE: 07/12/2017 This is John Saha's intensive care unit consult for Dr. Finch. CHIEF COMPLAINT: Sepsis, mental status change. HISTORY OF PRESENT ILLNESS: The patient is a 56-year-old male seen lying with eyes opened in the intensive care unit bed, no acute distress, correction resident, admitted via the emergency room for mental status change, weakness with workup done in the emergency room with the patient noted to have temperature at one point elevated, now afebrile? with elevated white blood cell count. The consult requested by his primary Dr. Castillo. He is also noted to have significant elevated blood sugar. He appears to be resting comfortably now in no acute distress. ALLERGIES: NO KNOWN ALLERGIES. MEDICATIONS: Include Clozaril, Lidocaine, Zofran, Trazodone, Tylenol, Dilantin, insulin and magnesium oxide. PAST MEDICAL HISTORY: Significant for pancreatic cancer, neurosyphilis, diabetes mellitus, hypertension, hyperlipidemia, dementia, obstructive jaundice, biliary stent, asthma and seizure disorder. PAST SURGICAL HISTORY: The patient is not a surgical candidate as his pancreatic carcinoma involve the splenic vein. He also has a remote history of neurosyphilis, bipolar disorder, schizophrenia, anemia and hypokalemia. FAMILY HISTORY: Noncontributory. SOCIAL HISTORY: Noncontributory. REVIEW OF SYSTEMS: A 12-point review of system was done with the patient lethargic, opens his eyes, but nonverbal. PHYSICAL EXAMINATION: VITAL SIGNS: Temperature 97.7, pulse 94, respirations 22, blood pressure 109/77 with a pulse ox of 97%. HEENT: Unremarkable, opens his eyes, but does not respond verbally. NECK: Supple. HEART: Regular rate. LUNGS: Decreased breath sounds. ABDOMEN: Soft and nontender. EXTREMITIES: No edema. SKIN: Warm and dry. NEUROLOGIC: Awake with no response to verbal commands. LABORATORY DATA: The patient's labs were done. White blood cell count of 18.7 this morning, with repeat 17.6 this afternoon with a white blood cell count of 21.8 on admission, hemoglobin 10.0, hematocrit 31.5 and platelet count 673,000. INR 1.22. Chem metabolic panel on admission showed a nonfasting glucose of 432, potassium 5.2, T bili of 2.5, alk phos of 1070. At present, he also had an ammonia level elevated at 182. At present, his nonfasting glucose is 184, calcium is 7.9 with prolactin level of 21.9, procalcitonin of 1.09. Urinalysis showed positive nitrate, moderate bilirubin, Dilantin level was 12 earlier today with an ABG done showing pH 7.48 with a pO2 of 78. The patient also had an ammonia level of 182 on repeat. The patient's testing included abdominal ultrasound done today which was read as marked limited study, heterogeneous echogenic hepatic parenchyma may be related to hepatic parenchymal disease with fatty infiltration, metastatic lesions demonstrated within the liver on prior CAT scan, cannot be adequately assessed, small perihepatic ascites, pancreas has not visualized, common bile duct stent. He had a chest x-ray done today, it was read as nasogastric tube in satisfactory position. The patient also had a CAT scan of the head done on admission. Yesterday, it was read as no acute intracranial findings. The patient had EKG done today, it was read as sinus tach left axis deviation, low voltage QRS. The patient earlier today had a rapid response, first the patient was not responding to questioning with an acute mental status change with questionable hematemesis, with NG tube placed, with black emesis noted. ASSESSMENT: Systemic inflammatory response syndrome without sepsis rule out spontaneous bacterial peritonitis, acute encephalopathy with elevated ammonia due to hepatic encephalopathy?, pancreatic cancer involving splenic vein, dementia, seizure disorder, history of neurosyphilis, schizophrenia, rule out gastrointestinal bleed, diabetes mellitus uncontrolled secondary to pancreatic carcinoma. PLAN: After conversation with Dr. Finch is to continue his present medical regimen intensive care unit with consult appreciated with consultants as listed with his medicines to continue which at this point include Aricept, Dilantin, lactulose, insulin coverage, Lidoderm patch, Protonix, IV fluids, Zofran and Zosyn. He remained n.p.o. with an NG tube to suction. His urine culture was no growth, final with blood culture negative at the 24 hours. The prognosis for this patient guarded. We will monitor clinically with labs. Wild Santillan MD
--- NOTE | 2017-07-13 11:09 | PN ---
SUBJECTIVE: The patient is a 56-year-old male. The patient is seen and examined at the bedside, looking comfortable. I saw him in the unit earlier today in the morning with rapid response and was called due to the patient experiencing acute episodes of hematemesis, worsened abdominal distention and worsened mental status, concerning for hepatic encephalopathy. Ammonia level increased to 182. The patient has NG tube placement for drainage of gastric contents as well as to assess for further lactulose. As the lactulose did not improve his ammonia level, the patient was transferred to ICU, drained copious amount of black emesis. Dr. Velez saw the patient. I have discussion done with Dr. Velez. He accepted the patient. When I saw the patient, he was lethargic but responding to verbal stimuli. Actually, we were trying to transfer this patient since ER admission. Tried Dr. Mujica from ER, then from telemetry I tried and last night I again tried to transfer the patient to the ICU, but nobody accepted that. Now the patient was transferred to ICU after rapid response. PHYSICAL EXAMINATION: VITAL SIGNS: Temperature 98.2, pulse 101, respiratory rate 22. HEENT: Head, normocephalic and atraumatic. Eyes, PERRLA. Extraocular muscles intact. Conjunctivae clear. Nose patent. Mucous membranes moist. NECK: Supple. No carotid bruits, JVD, or thyromegaly. CHEST: Bilaterally symmetrical. HEART: S1, S2 positive. LUNGS: Clear to auscultation. ABDOMEN: Soft. Bowel sounds positive. No organomegaly. EXTREMITIES: No edema, no cyanosis. NEUROLOGICAL: The patient is sleepy, arousable. Cannot do complete neurological examination. MEDICATIONS: Aricept, lactulose, Lidoderm, Dilantin, Protonix, Zofran, EpiPen and Zosyn. LABORATORY DATA: White blood cells 17.6, hemoglobin 10.0, hematocrit 31.5, platelets 673. Sodium 144, potassium 3.6, BUN 19, creatinine 0.4, random glucose 184, calcium 7.9, ammonia level 182, current level 21.9. ASSESSMENT AND PLAN: Mr. John Saha is a 56-year-old male with leukocytosis, improving; anemia, thrombocytosis, hyperchloremia, hyperglycemia, hypocalcemia, hypermagnesemia, hepatic encephalopathy, abnormal liver function test, has proteinuria, glycosuria, urinary tract infection. Dilantin level is within normal limits at 12. Seen by Infectious Disease, Dr. Anibal Leslie. Has systemic inflammatory response syndrome, rule out sepsis, rule out spontaneous bacterial peritonitis, rule out biliary tract infection, pancreatic cancer with liver metastases S/P chemotherapy and radiation therapy, hypertension, dementia, history of neurosyphilis, seizure disorder, asthma, schizophrenia. Follow up with blood and urine cultures. Chest x-ray showed atelectasis. Abdominal ultrasound was done. Got one dose of vancomycin and started on Zosyn. GI is on the case. History of obstructive biliary jaundice. The patient is getting lactulose. Overall prognosis is poor. Discussion done with Dr. Mariela Velez. Discussion done with Dr. Anibal Leslie also. We will follow up. Michelle Castillo MD MTDSean
--- NOTE | 2017-07-13 11:21 | CP.CCUPN ---
<Yanely Melissa - Last Filed: 07/13/17 11:27> CCU Subjective - Physician Review Events Since Last Encounter (Free Text): 07/13/17 11:20 Lethargic overnight, arousable to name, opens eyes spontaneously. More alert overnight. Subjective (Free Text): 07/13/17 11:20 Critical care progress note for Dr. Ordoñez-Yanely Melissa, PGY-1 Pt S & E at bedside. Pt more awake, now following some simple commands (not all). Improved since yesterday. Critical Care Time Spent (in minutes): 35 CCU Objective - Vital Signs / Intake & Output Vital Signs (Last 4 hours): Vital Signs Pulse Resp Pulse Ox 07/13/17 08:20 118 H 29 H 96 07/13/17 08:16 110 H 18 97 Intake and Output (Last 8hrs): Intake & Output 07/12/17 07/13/17 07/13/17 22:59 06:59 14:59 Intake Total 1560 1400 Output Total 902 550 Balance 658 850 Weight 69.4 kg Intake: IV 1200 1400 Left Hand 1200 1400 Oral 160 Other 200 Output: Gastric Amount 200 150 Nares 200 150 Urine 700 250 Urethral (Mendez) 700 250 Stool 2 0 Oral Regurgitation 150 Other: Voiding Method Indwelling Catheter Indwelling Catheter # Bowel Movements 125 - Physical Exam Head: Positive for: Atraumatic Pupils: Positive for: Sluggish Mouth: Positive for: Dry Pharnyx: Negative for: ERYTHEMA Neck: Negative for: Meningeal Signs, MIDLINE TENDERNESS Respiratory/Chest: Positive for: Good Air Exchange. Negative for: Respiratory Distress Cardiovascular: Positive for: Regular Rate and Rhythm, Murmurs Abdomen: Positive for: Distention, Normal Bowel Sounds. Negative for: Tenderness Rectal: Negative for: Gross Blood, Melena, Hemorrhoids Back: Negative for: Midline Tenderness Upper Extremity: Positive for: NORMAL PULSES Lower Extremity: Positive for: NORMAL PULSES. Negative for: Edema Neurological: Positive for: Other (patient will respond to painful stimuli, localize pain and move all 4 extremities and grimace) Skin: Positive for: Pale Psychiatric: Negative for: Alert, Oriented x 3 - Medications Active Medications: Active Medications Generic Name Dose Route Start Last Admin Trade Name Freq PRN Reason Stop Dose Admin Donepezil HCl 10 mg 07/12/17 10:00 07/13/17 09:20 Aricept PO 10 mg DAILY AVA Administration Piperacillin Sod/Tazobactam Sod 4.5 gm in 100 mls @ 200 mls/hr 07/11/17 18:00 07/13/17 06:22 Zosyn 4.5 Gm In Ns 100ml IVPB 07/18/17 18:01 200 mls/hr Q6 AVA Administration Protocol Phenytoin 150 mg/ Sodium 53 mls @ 104 mls/hr 07/12/17 18:00 07/13/17 05:05 Chloride IVPB 104 mls/hr Q12H AVA Administration Potassium Chloride 20 meq/ 1,010 mls @ 100 mls/hr 07/13/17 09:23 Sodium Chloride IV .Q10H6M AVA Lactulose 30 gm 07/12/17 14:45 07/13/17 09:20 Enulose NG 07/14/17 14:46 30 gm Q2H AVA Administration Lidocaine 1 ea 07/12/17 10:00 07/12/17 11:00 Lidoderm TD 1 ea DAILY AVA Administration Ondansetron HCl 4 mg 07/11/17 19:51 Zofran Tab PO Q6H PRN Nausea/Vomiting Pantoprazole Sodium 40 mg 07/12/17 10:00 07/13/17 09:20 Protonix Inj IVP 40 mg Q12H AVA Administration - Patient Studies Lab Studies: Microbiology Studies 07/11/17 11:55 Urine Culture - Final Urine No Growth (<1,000 CFU/ML) Lab Studies 07/13/17 07/13/17 07/13/17 Range/Units 06:45 06:45 06:45 WBC 16.4 H (4.5-11.0) 10^3/ul RBC 3.61 (3.5-6.1) 10^6/uL Hgb 10.0 L (14.0-18.0) g/dL Hct 32.1 L (42.0-52.0) % MCV 88.9 (80.0-105.0) fl MCH 27.7 (25.0-35.0) pg MCHC 31.2 (31.0-37.0) g/dl RDW 19.4 H (11.5-14.5) % Plt Count 744 H* D (120.0-450.0) 10^3/uL MPV 9.7 (7.0-11.0) fl Gran % 88.8 H (50.0-68.0) % Lymph % (Auto) 3.4 L (22.0-35.0) % Darke % (Auto) 7.0 H (1.0-6.0) % Eos % (Auto) 0.7 L (1.5-5.0) % Baso % (Auto) 0.1 (0.0-3.0) % Gran # 14.53 H (1.4-6.5) Lymph # 0.6 L (1.2-3.4) Darke # 1.2 H (0.1-0.6) Eos # 0.1 (0.0-0.7) Baso # 0.02 (0.0-2.0) K/mm3 Sodium 147 (132-148) mmol/L Potassium 3.4 L (3.6-5.0) mmol/L Chloride 113 H (98-107) mmol/L Carbon Dioxide 24 (21-33) mmol/L Anion Gap 13 (10-20) BUN 17 (7-21) mg/dL Creatinine 0.5 (0.5-1.4) mg/dL Est GFR ( Amer) > 60 Est GFR (Non-Af Amer) > 60 POC Glucose (mg/dL) (65-110) mg/dL Random Glucose 209 H (70-110) mg/dL Calcium 8.1 L (8.4-10.5) mg/dL Total Bilirubin 2.4 H (0.2-1.3) mg/dL AST 59 (17-59) U/L ALT 43 (7-56) U/L Alkaline Phosphatase 1041 H (38-126) U/L Ammonia 87 H (9-33) umol/L Total Protein 6.3 (5.8-8.3) g/dL Albumin 2.9 L (3.0-4.8) g/dL Globulin 3.4 gm/dL Albumin/Globulin Ratio 0.9 L (1.1-1.8) Procalcitonin (0.19-0.49) NG/ML Prolactin (3.7-17.9) ng/mL 07/13/17 07/13/17 07/12/17 Range/Units 00:15 00:15 23:01 WBC 14.8 H (4.5-11.0) 10^3/ul RBC 3.41 L (3.5-6.1) 10^6/uL Hgb 9.7 L (14.0-18.0) g/dL Hct 30.2 L (42.0-52.0) % MCV 88.6 (80.0-105.0) fl MCH 28.4 (25.0-35.0) pg MCHC 32.1 (31.0-37.0) g/dl RDW 19.3 H (11.5-14.5) % Plt Count 606 H (120.0-450.0) 10^3/uL MPV 9.5 (7.0-11.0) fl Gran % (50.0-68.0) % Lymph % (Auto) (22.0-35.0) % Darke % (Auto) (1.0-6.0) % Eos % (Auto) (1.5-5.0) % Baso % (Auto) (0.0-3.0) % Gran # (1.4-6.5) Lymph # (1.2-3.4) Darke # (0.1-0.6) Eos # (0.0-0.7) Baso # (0.0-2.0) K/mm3 Sodium 145 (132-148) mmol/L Potassium 3.4 L (3.6-5.0) mmol/L Chloride 111 H (98-107) mmol/L Carbon Dioxide 26 (21-33) mmol/L Anion Gap 11 (10-20) BUN 18 (7-21) mg/dL Creatinine 0.5 (0.5-1.4) mg/dL Est GFR ( Amer) > 60 Est GFR (Non-Af Amer) > 60 POC Glucose (mg/dL) 200 H (65-110) mg/dL Random Glucose 197 H (70-110) mg/dL Calcium 8.1 L (8.4-10.5) mg/dL Total Bilirubin (0.2-1.3) mg/dL AST (17-59) U/L ALT (7-56) U/L Alkaline Phosphatase (38-126) U/L Ammonia (9-33) umol/L Total Protein (5.8-8.3) g/dL Albumin (3.0-4.8) g/dL Globulin gm/dL Albumin/Globulin Ratio (1.1-1.8) Procalcitonin (0.19-0.49) NG/ML Prolactin (3.7-17.9) ng/mL 07/12/17 07/12/17 07/12/17 Range/Units 18:45 17:00 14:08 WBC 17.6 H (4.5-11.0) 10^3/ul RBC 3.55 (3.5-6.1) 10^6/uL Hgb 10.0 L (14.0-18.0) g/dL Hct 31.5 L (42.0-52.0) % MCV 88.7 (80.0-105.0) fl MCH 28.2 (25.0-35.0) pg MCHC 31.7 (31.0-37.0) g/dl RDW 19.1 H (11.5-14.5) % Plt Count 673 H (120.0-450.0) 10^3/uL MPV 9.6 (7.0-11.0) fl Gran % (50.0-68.0) % Lymph % (Auto) (22.0-35.0) % Darke % (Auto) (1.0-6.0) % Eos % (Auto) (1.5-5.0) % Baso % (Auto) (0.0-3.0) % Gran # (1.4-6.5) Lymph # (1.2-3.4) Darke # (0.1-0.6) Eos # (0.0-0.7) Baso # (0.0-2.0) K/mm3 Sodium 144 (132-148) mmol/L Potassium 3.6 (3.6-5.0) mmol/L Chloride 110 H (98-107) mmol/L Carbon Dioxide 25 (21-33) mmol/L Anion Gap 13 (10-20) BUN 19 (7-21) mg/dL Creatinine 0.4 L (0.5-1.4) mg/dL Est GFR ( Amer) > 60 Est GFR (Non-Af Amer) > 60 POC Glucose (mg/dL) 221 H (65-110) mg/dL Random Glucose 184 H (70-110) mg/dL Calcium 7.9 L (8.4-10.5) mg/dL Total Bilirubin (0.2-1.3) mg/dL AST (17-59) U/L ALT (7-56) U/L Alkaline Phosphatase (38-126) U/L Ammonia (9-33) umol/L Total Protein (5.8-8.3) g/dL Albumin (3.0-4.8) g/dL Globulin gm/dL Albumin/Globulin Ratio (1.1-1.8) Procalcitonin (0.19-0.49) NG/ML Prolactin (3.7-17.9) ng/mL 07/12/17 07/12/17 Range/Units 09:38 09:04 WBC (4.5-11.0) 10^3/ul RBC (3.5-6.1) 10^6/uL Hgb (14.0-18.0) g/dL Hct (42.0-52.0) % MCV (80.0-105.0) fl MCH (25.0-35.0) pg MCHC (31.0-37.0) g/dl RDW (11.5-14.5) % Plt Count (120.0-450.0) 10^3/uL MPV (7.0-11.0) fl Gran % (50.0-68.0) % Lymph % (Auto) (22.0-35.0) % Darke % (Auto) (1.0-6.0) % Eos % (Auto) (1.5-5.0) % Baso % (Auto) (0.0-3.0) % Gran # (1.4-6.5) Lymph # (1.2-3.4) Darke # (0.1-0.6) Eos # (0.0-0.7) Baso # (0.0-2.0) K/mm3 Sodium (132-148) mmol/L Potassium (3.6-5.0) mmol/L Chloride (98-107) mmol/L Carbon Dioxide (21-33) mmol/L Anion Gap (10-20) BUN (7-21) mg/dL Creatinine (0.5-1.4) mg/dL Est GFR ( Amer) Est GFR (Non-Af Amer) POC Glucose (mg/dL) (65-110) mg/dL Random Glucose (70-110) mg/dL Calcium (8.4-10.5) mg/dL Total Bilirubin (0.2-1.3) mg/dL AST (17-59) U/L ALT (7-56) U/L Alkaline Phosphatase (38-126) U/L Ammonia (9-33) umol/L Total Protein (5.8-8.3) g/dL Albumin (3.0-4.8) g/dL Globulin gm/dL Albumin/Globulin Ratio (1.1-1.8) Procalcitonin 1.09 H (0.19-0.49) NG/ML Prolactin 21.9 H (3.7-17.9) ng/mL Laboratory Results - last 24 hr 07/12/17 07/12/17 07/12/17 09:04 09:38 14:08 WBC RBC Hgb Hct MCV MCH MCHC RDW Plt Count MPV Gran % Lymph % (Auto) Darke % (Auto) Eos % (Auto) Baso % (Auto) Gran # Lymph # Darke # Eos # Baso # Sodium Potassium Chloride Carbon Dioxide Anion Gap BUN Creatinine Est GFR ( Amer) Est GFR (Non-Af Amer) POC Glucose (mg/dL) 221 H Random Glucose Calcium Total Bilirubin AST ALT Alkaline Phosphatase Ammonia Total Protein Albumin Globulin Albumin/Globulin Ratio Procalcitonin 1.09 H Prolactin 21.9 H 07/12/17 07/12/17 07/12/17 17:00 18:45 23:01 WBC 17.6 H RBC 3.55 Hgb 10.0 L Hct 31.5 L MCV 88.7 MCH 28.2 MCHC 31.7 RDW 19.1 H Plt Count 673 H MPV 9.6 Gran % Lymph % (Auto) Darke % (Auto) Eos % (Auto) Baso % (Auto) Gran # Lymph # Darke # Eos # Baso # Sodium 144 Potassium 3.6 Chloride 110 H Carbon Dioxide 25 Anion Gap 13 BUN 19 Creatinine 0.4 L Est GFR ( Amer) > 60 Est GFR (Non-Af Amer) > 60 POC Glucose (mg/dL) 200 H Random Glucose 184 H Calcium 7.9 L Total Bilirubin AST ALT Alkaline Phosphatase Ammonia Total Protein Albumin Globulin Albumin/Globulin Ratio Procalcitonin Prolactin 07/13/17 07/13/17 07/13/17 00:15 00:15 06:45 WBC 14.8 H 16.4 H RBC 3.41 L 3.61 Hgb 9.7 L 10.0 L Hct 30.2 L 32.1 L MCV 88.6 88.9 MCH 28.4 27.7 MCHC 32.1 31.2 RDW 19.3 H 19.4 H Plt Count 606 H 744 H* D MPV 9.5 9.7 Gran % 88.8 H Lymph % (Auto) 3.4 L Darke % (Auto) 7.0 H Eos % (Auto) 0.7 L Baso % (Auto) 0.1 Gran # 14.53 H Lymph # 0.6 L Darke # 1.2 H Eos # 0.1 Baso # 0.02 Sodium 145 Potassium 3.4 L Chloride 111 H Carbon Dioxide 26 Anion Gap 11 BUN 18 Creatinine 0.5 Est GFR ( Amer) > 60 Est GFR (Non-Af Amer) > 60 POC Glucose (mg/dL) Random Glucose 197 H Calcium 8.1 L Total Bilirubin AST ALT Alkaline Phosphatase Ammonia Total Protein Albumin Globulin Albumin/Globulin Ratio Procalcitonin Prolactin 07/13/17 07/13/17 06:45 06:45 WBC RBC Hgb Hct MCV MCH MCHC RDW Plt Count MPV Gran % Lymph % (Auto) Darke % (Auto) Eos % (Auto) Baso % (Auto) Gran # Lymph # Darke # Eos # Baso # Sodium 147 Potassium 3.4 L Chloride 113 H Carbon Dioxide 24 Anion Gap 13 BUN 17 Creatinine 0.5 Est GFR ( Amer) > 60 Est GFR (Non-Af Amer) > 60 POC Glucose (mg/dL) Random Glucose 209 H Calcium 8.1 L Total Bilirubin 2.4 H AST 59 ALT 43 Alkaline Phosphatase 1041 H Ammonia 87 H Total Protein 6.3 Albumin 2.9 L Globulin 3.4 Albumin/Globulin Ratio 0.9 L Procalcitonin Prolactin Fingerstick Blood Sugar Results: 200 Critical Care Progress Note - Nutrition Nutrition: Nutrition Category Date Time Status NPO Diet [DIET] Diets 07/11/17 Dinner Ordered Assessment/Plan - Assessment and Plan (Free Text) Assessment: 56M w/PMH sig for pancreatic adenocarcinoma with mets, neurosyphillis, dementia , hx seizures- now seems to be at baseline, GCS 12, stable, ready for transfer to tele. Plan: Neuro Dementia Neurosyphillis Aricept Lactulose Phenytoin Lidoderm patch Seems to be at baseline GCS 12 Seizure precautions Monitor Neuro following CVS Mild tachycardia Monitor Pulm Stable on RA Target SaO2>94% Pulm following GI NGT in place NPO Pancreatic adenocarcinoma with mets Hyperbilirubinemia T bili 2.4 AST 59 ALT 43 ALP 1041 LDH [address] - 700cc bilious fluid out GI following- FU CT Ab as per GI Mendez in place UOP 1450cc/24H Monitor for bleeding Nephro Hypokalemia K 3.4 Replaced KCl 20mEq NS + 20mEq KCl@100 BUN, Cr WNL Monitor MSK Monitor for skin break down ID Afebrile over last 24H Leukocytosis 16.4 from 14.8 Urine cx neg Blood cx neg x 24H Monitor Zosyn ID following Heme/Once Pancreatic CA w/mets Hgb 10 from 9.7 Hct 32.1 from 30.2 Monitor Heme/onc following GI/DVT ppx Protonix SCDs Dispo Seems to be at baseline Transfer to tele Pallative care DW attending Belén, PGY-1 - Date & Time Date: 07/13/17 Time: 07:40 <Gustavo Ordoñez - Last Filed: 07/13/17 15:04> CCU Objective - Vital Signs / Intake & Output Intake and Output (Last 8hrs): Intake & Output 07/13/17 07/13/17 07/13/17 06:59 14:59 22:59 Intake Total 1400 Output Total 550 Balance 850 Weight 153 lb Intake: IV 1400 Left Hand 1400 Output: Gastric Amount 150 Nares 150 Urine 250 Urethral (Mendez) 250 Stool 0 Oral Regurgitation 150 Other: Voiding Method Indwelling Catheter - Medications Active Medications: Active Medications Generic Name Dose Route Start Last Admin Trade Name Freq PRN Reason Stop Dose Admin Donepezil HCl 10 mg 07/12/17 10:00 07/13/17 09:20 Aricept PO 10 mg DAILY AVA Administration Piperacillin Sod/Tazobactam Sod 4.5 gm in 100 mls @ 200 mls/hr 07/11/17 18:00 07/13/17 12:16 Zosyn 4.5 Gm In Ns 100ml IVPB 07/18/17 18:01 200 mls/hr Q6 AVA Administration Protocol Phenytoin 150 mg/ Sodium 53 mls @ 104 mls/hr 07/12/17 18:00 07/13/17 05:05 Chloride IVPB 104 mls/hr Q12H AVA Administration Potassium Chloride 20 meq/ 1,010 mls @ 100 mls/hr 07/13/17 09:23 Sodium Chloride IV .Q10H6M AVA Lactulose 30 gm 07/12/17 14:45 07/13/17 12:14 Enulose NG 07/14/17 14:46 30 gm Q2H AVA Administration Lidocaine 1 ea 07/12/17 10:00 07/13/17 12:15 Lidoderm TD 1 ea DAILY AVA Administration Ondansetron HCl 4 mg 07/11/17 19:51 Zofran Tab PO Q6H PRN Nausea/Vomiting Pantoprazole Sodium 40 mg 07/12/17 10:00 07/13/17 09:20 Protonix Inj IVP 40 mg Q12H AVA Administration - Patient Studies Lab Studies: Microbiology Studies 07/11/17 11:55 Urine Culture - Final Urine No Growth (<1,000 CFU/ML) Lab Studies 07/13/17 07/13/17 07/13/17 Range/Units 06:45 06:45 06:45 WBC 16.4 H (4.5-11.0) 10^3/ul RBC 3.61 (3.5-6.1) 10^6/uL Hgb 10.0 L (14.0-18.0) g/dL Hct 32.1 L (42.0-52.0) % MCV 88.9 (80.0-105.0) fl MCH 27.7 (25.0-35.0) pg MCHC 31.2 (31.0-37.0) g/dl RDW 19.4 H (11.5-14.5) % Plt Count 744 H* D (120.0-450.0) 10^3/uL MPV 9.7 (7.0-11.0) fl Gran % 88.8 H (50.0-68.0) % Lymph % (Auto) 3.4 L (22.0-35.0) % Darke % (Auto) 7.0 H (1.0-6.0) % Eos % (Auto) 0.7 L (1.5-5.0) % Baso % (Auto) 0.1 (0.0-3.0) % Gran # 14.53 H (1.4-6.5) Lymph # 0.6 L (1.2-3.4) Darke # 1.2 H (0.1-0.6) Eos # 0.1 (0.0-0.7) Baso # 0.02 (0.0-2.0) K/mm3 Sodium 147 (132-148) mmol/L Potassium 3.4 L (3.6-5.0) mmol/L Chloride 113 H (98-107) mmol/L Carbon Dioxide 24 (21-33) mmol/L Anion Gap 13 (10-20) BUN 17 (7-21) mg/dL Creatinine 0.5 (0.5-1.4) mg/dL Est GFR ( Amer) > 60 Est GFR (Non-Af Amer) > 60 POC Glucose (mg/dL) (65-110) mg/dL Random Glucose 209 H (70-110) mg/dL Calcium 8.1 L (8.4-10.5) mg/dL Total Bilirubin 2.4 H (0.2-1.3) mg/dL AST 59 (17-59) U/L ALT 43 (7-56) U/L Alkaline Phosphatase 1041 H (38-126) U/L Ammonia 87 H (9-33) umol/L Total Protein 6.3 (5.8-8.3) g/dL Albumin 2.9 L (3.0-4.8) g/dL Globulin 3.4 gm/dL Albumin/Globulin Ratio 0.9 L (1.1-1.8) 07/13/17 07/13/17 07/12/17 Range/Units 00:15 00:15 23:01 WBC 14.8 H (4.5-11.0) 10^3/ul RBC 3.41 L (3.5-6.1) 10^6/uL Hgb 9.7 L (14.0-18.0) g/dL Hct 30.2 L (42.0-52.0) % MCV 88.6 (80.0-105.0) fl MCH 28.4 (25.0-35.0) pg MCHC 32.1 (31.0-37.0) g/dl RDW 19.3 H (11.5-14.5) % Plt Count 606 H (120.0-450.0) 10^3/uL MPV 9.5 (7.0-11.0) fl Gran % (50.0-68.0) % Lymph % (Auto) (22.0-35.0) % Darke % (Auto) (1.0-6.0) % Eos % (Auto) (1.5-5.0) % Baso % (Auto) (0.0-3.0) % Gran # (1.4-6.5) Lymph # (1.2-3.4) Darke # (0.1-0.6) Eos # (0.0-0.7) Baso # (0.0-2.0) K/mm3 Sodium 145 (132-148) mmol/L Potassium 3.4 L (3.6-5.0) mmol/L Chloride 111 H (98-107) mmol/L Carbon Dioxide 26 (21-33) mmol/L Anion Gap 11 (10-20) BUN 18 (7-21) mg/dL Creatinine 0.5 (0.5-1.4) mg/dL Est GFR ( Amer) > 60 Est GFR (Non-Af Amer) > 60 POC Glucose (mg/dL) 200 H (65-110) mg/dL Random Glucose 197 H (70-110) mg/dL Calcium 8.1 L (8.4-10.5) mg/dL Total Bilirubin (0.2-1.3) mg/dL AST (17-59) U/L ALT (7-56) U/L Alkaline Phosphatase (38-126) U/L Ammonia (9-33) umol/L Total Protein (5.8-8.3) g/dL Albumin (3.0-4.8) g/dL Globulin gm/dL Albumin/Globulin Ratio (1.1-1.8) 07/12/17 07/12/17 Range/Units 18:45 17:00 WBC 17.6 H (4.5-11.0) 10^3/ul RBC 3.55 (3.5-6.1) 10^6/uL Hgb 10.0 L (14.0-18.0) g/dL Hct 31.5 L (42.0-52.0) % MCV 88.7 (80.0-105.0) fl MCH 28.2 (25.0-35.0) pg MCHC 31.7 (31.0-37.0) g/dl RDW 19.1 H (11.5-14.5) % Plt Count 673 H (120.0-450.0) 10^3/uL MPV 9.6 (7.0-11.0) fl Gran % (50.0-68.0) % Lymph % (Auto) (22.0-35.0) % Darke % (Auto) (1.0-6.0) % Eos % (Auto) (1.5-5.0) % Baso % (Auto) (0.0-3.0) % Gran # (1.4-6.5) Lymph # (1.2-3.4) Darke # (0.1-0.6) Eos # (0.0-0.7) Baso # (0.0-2.0) K/mm3 Sodium 144 (132-148) mmol/L Potassium 3.6 (3.6-5.0) mmol/L Chloride 110 H (98-107) mmol/L Carbon Dioxide 25 (21-33) mmol/L Anion Gap 13 (10-20) BUN 19 (7-21) mg/dL Creatinine 0.4 L (0.5-1.4) mg/dL Est GFR ( Amer) > 60 Est GFR (Non-Af Amer) > 60 POC Glucose (mg/dL) (65-110) mg/dL Random Glucose 184 H (70-110) mg/dL Calcium 7.9 L (8.4-10.5) mg/dL Total Bilirubin (0.2-1.3) mg/dL AST (17-59) U/L ALT (7-56) U/L Alkaline Phosphatase (38-126) U/L Ammonia (9-33) umol/L Total Protein (5.8-8.3) g/dL Albumin (3.0-4.8) g/dL Globulin gm/dL Albumin/Globulin Ratio (1.1-1.8) Laboratory Results - last 24 hr 07/12/17 07/12/17 07/12/17 17:00 18:45 23:01 WBC 17.6 H RBC 3.55 Hgb 10.0 L Hct 31.5 L MCV 88.7 MCH 28.2 MCHC 31.7 RDW 19.1 H Plt Count 673 H MPV 9.6 Gran % Lymph % (Auto) Darke % (Auto) Eos % (Auto) Baso % (Auto) Gran # Lymph # Darke # Eos # Baso # Sodium 144 Potassium 3.6 Chloride 110 H Carbon Dioxide 25 Anion Gap 13 BUN 19 Creatinine 0.4 L Est GFR ( Amer) > 60 Est GFR (Non-Af Amer) > 60 POC Glucose (mg/dL) 200 H Random Glucose 184 H Calcium 7.9 L Total Bilirubin AST ALT Alkaline Phosphatase Ammonia Total Protein Albumin Globulin Albumin/Globulin Ratio 07/13/17 07/13/17 07/13/17 00:15 00:15 06:45 WBC 14.8 H 16.4 H RBC 3.41 L 3.61 Hgb 9.7 L 10.0 L Hct 30.2 L 32.1 L MCV 88.6 88.9 MCH 28.4 27.7 MCHC 32.1 31.2 RDW 19.3 H 19.4 H Plt Count 606 H 744 H* D MPV 9.5 9.7 Gran % 88.8 H Lymph % (Auto) 3.4 L Darke % (Auto) 7.0 H Eos % (Auto) 0.7 L Baso % (Auto) 0.1 Gran # 14.53 H Lymph # 0.6 L Darke # 1.2 H Eos # 0.1 Baso # 0.02 Sodium 145 Potassium 3.4 L Chloride 111 H Carbon Dioxide 26 Anion Gap 11 BUN 18 Creatinine 0.5 Est GFR ( Amer) > 60 Est GFR (Non-Af Amer) > 60 POC Glucose (mg/dL) Random Glucose 197 H Calcium 8.1 L Total Bilirubin AST ALT Alkaline Phosphatase Ammonia Total Protein Albumin Globulin Albumin/Globulin Ratio 07/13/17 07/13/17 06:45 06:45 WBC RBC Hgb Hct MCV MCH MCHC RDW Plt Count MPV Gran % Lymph % (Auto) Darke % (Auto) Eos % (Auto) Baso % (Auto) Gran # Lymph # Darke # Eos # Baso # Sodium 147 Potassium 3.4 L Chloride 113 H Carbon Dioxide 24 Anion Gap 13 BUN 17 Creatinine 0.5 Est GFR ( Amer) > 60 Est GFR (Non-Af Amer) > 60 POC Glucose (mg/dL) Random Glucose 209 H Calcium 8.1 L Total Bilirubin 2.4 H AST 59 ALT 43 Alkaline Phosphatase 1041 H Ammonia 87 H Total Protein 6.3 Albumin 2.9 L Globulin 3.4 Albumin/Globulin Ratio 0.9 L Critical Care Progress Note - Nutrition Nutrition: Nutrition Category Date Time Status NPO Diet [DIET] Diets 07/11/17 Dinner Ordered Attending/Attestation - Attestation I have personally seen and examined this patient.: Yes I have fully participated in the care of the patient.: Yes I have reviewed all pertinent clinical information: Yes Notes (Text): 07/13/17 15:03 56 yo with metastatic pancreatic cancer, admitted to ICU for increased somnolence and questionable ability to protect airways. Substantially improved. Moer alert and awake. Able to protect airwasy. Hemodynamically and respiratory thompson stable. Ok to downgrade to tele ccm time 40 min
[2017-07-13] MEDS: Lidocaine 5% Patch TD SCH (12:15)
--- NOTE | 2017-07-13 12:46 | CT ---
PROCEDURE: CT Abdomen and Pelvis without intravenous contrast HISTORY: abdominal distention COMPARISON: CT 06/15/2017 TECHNIQUE: Without contrast.. Contrast Dose: Radiation dose: Total exam DLP = 805 mGy-cm. This CT exam was performed using one or more of the following dose reduction techniques: Automated exposure control, adjustment of the mA and/or kV according to patient size, and/or use of iterative reconstruction technique. FINDINGS: LOWER THORAX: Unremarkable. LIVER: There is a mild amount of ascites that now surrounds the liver and spleen. The liver is otherwise unchanged. GALLBLADDER AND BILE DUCTS: Unremarkable. PANCREAS: There is a common duct stent present that appears to be patent. The pancreatic lesion is difficult to assess without contrast. SPLEEN: Unremarkable. ADRENALS: Unremarkable. No mass. KIDNEYS AND URETERS: Unremarkable. No hydronephrosis. No solid mass. VASCULATURE: Unremarkable. No aortic aneurysm. BOWEL: Multiple dilated loops of small bowel are seen measuring up to 4.4 cm in size. The colon is also dilated and there is a moderate to severe amount of fecal retention. Findings are probably related to ileus. The stomach is also moderately distended. Nasogastric tube is present. There is no evidence of pneumatosis or free air. These findings were not present on the previous exam APPENDIX: Unremarkable. Normal appendix. PERITONEUM: Mild ascites LYMPH NODES: Unremarkable. No enlarged lymph nodes. BLADDER: Decompressed by Mendez catheter REPRODUCTIVE: Unremarkable. BONES: No acute fracture. OTHER FINDINGS: None. IMPRESSION: Dilated stomach small bowel and colon consistent with ileus. See comments
--- NOTE | 2017-07-13 15:52 | CP.PCM.PN ---
<Jorge Mckinley - Last Filed: 07/13/17 15:41> Subjective - Date & Time of Evaluation Date of Evaluation: 07/13/17 Time of Evaluation: 09:00 - Subjective Subjective: Neurology Progress Note for Dr. Gambino service Patient seen and examined at bedside in the ICU. No acute events reported overnight. This AM, considerably more awake and alert, with AM ammonia level reported at 87 (was 182). NGT remains in place, not on active suction at time of exam but with bedside contained half-filled with dark green stomach contents. Opening eyes and moving extremities spontaneously, tracking staff in room initially, and intermittently trying to speak but mumbling incoherently. Following some commands. Objective - Vital Signs/Intake and Output Vital Signs (last 24 hours): Temp Pulse Resp BP Pulse Ox 97.8 F 118 H 29 H 104/61 96 07/12/17 20:00 07/13/17 08:20 07/13/17 08:20 07/13/17 07:00 07/13/17 08:20 Intake and Output: 07/13/17 07/13/17 06:59 18:59 Intake Total 1400 Output Total 550 Balance 850 - Medications Medications: Current Medications Donepezil HCl (Aricept) 10 mg PO DAILY [facility] Last Admin: 07/13/17 09:20 Dose: 10 mg Piperacillin Sod/Tazobactam Sod (Zosyn 4.5 Gm In Ns 100ml) 4.5 gm in 100 mls @ 200 mls/hr IVPB Q6 [facility] PRN Reason: Protocol Stop: 07/18/17 18:01 Last Admin: 07/13/17 12:16 Dose: 200 mls/hr Phenytoin 150 mg/ Sodium (Chloride) 53 mls @ 104 mls/hr IVPB Q12H [facility] Last Admin: 07/13/17 05:05 Dose: 104 mls/hr Potassium Chloride 20 meq/ (Sodium Chloride) 1,010 mls @ 100 mls/hr IV .Q10H6M [facility] Lactulose (Enulose) 30 gm NG Q2H [facility] Stop: 07/14/17 14:46 Last Admin: 07/13/17 12:14 Dose: 30 gm Lidocaine (Lidoderm) 1 ea TD DAILY [facility] Last Admin: 07/13/17 12:15 Dose: 1 ea Ondansetron HCl (Zofran Tab) 4 mg PO Q6H PRN PRN Reason: Nausea/Vomiting Pantoprazole Sodium (Protonix Inj) 40 mg IVP Q12H [facility] Last Admin: 07/13/17 09:20 Dose: 40 mg - Labs Labs: 07/13/17 06:45 07/13/17 06:45 PT 13.2 Seconds (9.9-11.8) H 07/12/17 09:00 INR 1.22 (0.93-1.08) H 07/12/17 09:00 APTT 26.1 Seconds (23.7-30.8) 07/12/17 09:00 - Additional Findings Additional findings: - Constitutional Appears: Other (Lethargic/Somnolent, minimally responsive) - Head Exam Head Exam: ATRAUMATIC, NORMAL INSPECTION, NORMOCEPHALIC - Eye Exam Eye Exam: Normal appearance, PERRL, Scleral icterus (mild icterus bilaterally, R >L). absent: Conjunctival injection, EOMI (not following commands for EOMI testing, but some eye movement away from direct light challenge for PERRL assessment) Pupil Exam: NORMAL ACCOMODATION, PERRL. absent: Fixed, Irregular, Unequal - ENT Exam ENT Exam: Mucous Membranes Moist NGT in place, fixed to place with tape Protecting airway - Neck Exam Neck Exam: Full ROM (passive ROM intact; some spontaneous movement). absent: Lymphadenopathy, Thyromegaly - Respiratory Exam Respiratory Exam: Decreased Breath Sounds (mild in all gabriel, improved over yesterday), otherwise CTAB, NORMAL BREATHING PATTERN. absent: Accessory Muscle Use, Chest Wall Tenderness, Prolonged Expiratory Phase, Rales, Rhonchi, Wheezes , Respiratory Distress, Stridor - Cardiovascular Exam Cardiovascular Exam: Tachycardia, REGULAR RHYTHM, +S1, +S2. absent: Bradycardia , Irregular Rhythm, JVD, RRR, +S4 - GI/Abdominal Exam GI & Abdominal Exam: Distended but improved, Firm, Diminished Bowel Sounds. absent: Rigid, Soft, Hyperactive Bowel Sounds, Hypoactive Bowel Sounds, Normal Bowel Sounds - Rectal Exam Rectal Exam: Deferred - Extremities Exam Extremities Exam: holding flaccidly normally but some spontaneous movement, +2 radial and dorsalis pedis pulses. absent: Joint Swelling, Pedal Edema - Neurological Exam Additional comments: occasionally somnolent/lethargic but more awake/alert as compared to yesterday, initially tracking staff in room, following some commands withdraws from painful stimuli Some spontaneous movements in all extremities, otherwise holding all extremities flaccidly GCS 9 (E4 V1t M4) - Psychiatric Exam Additional comments: difficult to assess due to minimally responsive/non-verbal state following some commands, so some cognition intact - Skin Skin Exam: Dry, Intact, Warm. absent: Normal Color (some icterus noted, predominantly at feet) Assessment and Plan - Assessment and Plan (Free Text) Assessment: This is a 56 yo M with PMH of pancreatic Ca s/p chemo-rads, HTN, DM, dyslipidemia, neurosyphillus, seizures, asthma schizophrenia, and prior lacunar infarcts who presented initially to [facility] with complaint of weakness and altered mental status (sent from oncology clinic), and later developed worsening mental status and hematemesis. He in now in the ICU. His altered mental status is likely due to toxic metabolic encephalopathy with an additional component of hepatic encephalopathy given his highly elevated ammonia, all in the setting of underlying pancreatic cancer. His mentation is improving, as is his ammonia level (87 today, was 182) Plan: 1) Continue dilantin for seizure ppx; can convert to IV formulation at same dose (150mg BID) 2) Avoid sedative medications 3) new set of blood culture due to his new leukocytosis were drawn, remain negative at 48 hours 4) f/u GI recs 5) continue medical management as per ICU Patient reviewed, discussed, and seen with attending, Dr. Gambino. <Lake Gambino - Last Filed: 07/14/17 09:48> Objective - Vital Signs/Intake and Output Vital Signs (last 24 hours): Temp Pulse Resp BP Pulse Ox 97.8 F 82 17 108/62 99 07/14/17 06:00 07/14/17 06:00 07/14/17 06:00 07/14/17 06:00 07/14/17 06:00 - Medications Medications: Current Medications Donepezil HCl (Aricept) 10 mg PO DAILY [facility] Last Admin: 07/13/17 09:20 Dose: 10 mg Piperacillin Sod/Tazobactam Sod (Zosyn 4.5 Gm In Ns 100ml) 4.5 gm in 100 mls @ 200 mls/hr IVPB Q6 [facility] PRN Reason: Protocol Stop: 07/18/17 18:01 Last Admin: 07/14/17 05:22 Dose: 200 mls/hr Phenytoin 150 mg/ Sodium (Chloride) 53 mls @ 104 mls/hr IVPB Q12H [facility] Last Admin: 07/14/17 05:21 Dose: 104 mls/hr Potassium Chloride 20 meq/ (Sodium Chloride) 1,010 mls @ 100 mls/hr IV .Q10H6M [facility] Last Admin: 07/14/17 05:21 Dose: 100 mls/hr Lactulose (Enulose) 30 gm NG Q2H [facility] Stop: 07/14/17 14:46 Last Admin: 07/14/17 06:06 Dose: Not Given Lidocaine (Lidoderm) 1 ea TD DAILY [facility] Last Admin: 07/14/17 09:22 Dose: 1 ea Ondansetron HCl (Zofran Tab) 4 mg PO Q6H PRN PRN Reason: Nausea/Vomiting Pantoprazole Sodium (Protonix Inj) 40 mg IVP Q12H [facility] Last Admin: 07/14/17 09:23 Dose: 40 mg - Labs Labs: 07/14/17 06:10 07/14/17 06:10 PT 13.2 Seconds (9.9-11.8) H 07/12/17 09:00 INR 1.22 (0.93-1.08) H 07/12/17 09:00 APTT 26.1 Seconds (23.7-30.8) 07/12/17 09:00 Attending/Attestation - Attestation I have personally seen and examined this patient.: Yes I have fully participated in the care of the patient.: Yes I have reviewed all pertinent clinical information, including history, physical exam and plan: Yes
[2017-07-13 16:05] LABS: HEMATOCRIT 30.7 % (42.0-52.0); MEAN CELL VOLUME 88.7 fl (80.0-105.0); MEAN CORPUSCULAR HGB CONC 31.6 g/dl (31.0-37.0); MEAN PLATELET VOLUME 9.2 fl (7.0-11.0); RED CELL DISTRIBUTION WIDTH 19.1 % (11.5-14.5); WHITE BLOOD COUNT 15.8 10^3/ul (4.5-11.0)
[2017-07-13 16:18] LABS: BLOOD UREA NITROGEN 17 mg/dL (7-21); CARBON DIOXIDE 22 mmol/L (21-33); CHLORIDE 112 mmol/L (98-107); GFR AFRICAN-AMERICAN > 60; GLUCOSE,RANDOM 219 mg/dL (70-110); POTASSIUM 3.2 mmol/L (3.6-5.0); SODIUM 145 mmol/L (132-148)
[2017-07-14] MEDS: Piperacill/Tazo 4.5gm in NS 4.5 GM/100 ML BAG IVPB SCH ×4 (00:04→20:24)
[2017-07-14 01:43] LABS: BLOOD UREA NITROGEN 15 mg/dL (7-21); CARBON DIOXIDE 25 mmol/L (21-33); CHLORIDE 113 mmol/L (95-110); GFR AFRICAN-AMERICAN > 60; GLUCOSE,RANDOM 178 mg/dL (70-110); POTASSIUM 3.4 mmol/L (3.6-5.0); SODIUM 146 mmol/L (132-148)
--- NOTE | 2017-07-14 02:12 | PN ---
DATE: 07/13/2017 The patient's hospital visit on the intensive care unit. For Dr. Finch. SUBJECTIVE: The patient is a 56-year-old male, seen lying somnolent but arousable in an intensive care unit but with NG tube in situ, nonverbal with the patient appearing to be in no acute distress. The patient is known to suffer from inoperable pancreatic cancer involving splenic vein with remote history of neurosyphilis, bipolar disorder, schizophrenia, admitted for treatment of SIRS, possibly sepsis with acute encephalopathy with possible hepatic encephalopathy. He is in no acute distress. PHYSICAL EXAMINATION VITAL SIGNS: Temperature was 97.9 with a pulse of 103, respirations 17, blood pressure 120/70 with the pulse oximetry 97%. HEENT: Unremarkable. Opens eyes to commands, otherwise lethargic. NECK: Supple. HEART: Regular rate. LUNGS: Rare rhonchi. ABDOMEN: Soft, nontender. NG tube in situ. EXTREMITIES: No edema. SKIN: Warm and dry. NEUROLOGIC: Awake, somnolent, but arousable, noncompliant with testing for professor of languages. Nonverbal. LABORATORY DATA: Labs were done. White blood cell count of 15.8; hemoglobin 9.7; hematocrit 30.7; platelet count of 671,000 on repeat. His chem metabolic panel showed a potassium of 3.2 with a nonfasting glucose of 219, calcium of 8.0, ammonia level of 87, alkaline phosphatase of 1041. T-bili of 2.4. His Dilantin level was 12 yesterday. ASSESSMENT: Systemic inflammatory response syndrome; history of pancreatic adenocarcinoma with metastasis, inoperable; neurosyphilis history; dementia; history of seizure disorder; schizophrenia; diabetes mellitus. PLAN: For this patient, after conversation with Dr. Finch, he is to continue his present medical regimen with NG tube for feeding as indicated. Antibiotics to continue as per infectious disease consultants with prognosis for this patient guarded. Wild Santillan MD
--- NOTE | 2017-07-14 02:30 | PN ---
DATE: 07/13/2017 SUBJECTIVE: This patient was seen and evaluated earlier. Discussed with florist designer. The patient appears more alert. Has NG tube, receiving lactulose. PHYSICAL EXAMINATION VITAL SIGNS: The patient's temperature is afebrile, blood pressure 104/59, respiration is 17, O2 saturation 98%. HEENT: Atraumatic. Jaundiced. NECK: Supple. HEART: S1, S2. LUNGS: Bilateral air entry present. ABDOMEN: Distended. Bowel sounds present. EXTREMITIES: No cyanosis, no clubbing. NEUROLOGIC: The patient is more alert, partially respond to the verbal command. LABORATORY DATA: Potassium is 3.2, ammonia level still elevated to 87. Alkaline phosphatase 1041. Albumin 2.4. IMPRESSION: This 56-year-old patient with advanced pancreatic cancer, status post biliary stent, admitted with sepsis, worsening of the hepatic function, and hepatic encephalopathy. The patient was transferred to the unit from the floor. Has NG tube, receiving lactulose, found to have a distended abdomen. Would recommend one to have a stat CT of the abdomen and pelvis without p.o. contrast. Follow up the cultures and continue the antibiotics. Followup of the electrolytes and supplement potassium. Thank you very much for allowing us to participate in the care of the patient. ADDENDUM: The CT was reviewed, it showed ascites and a large amount of stool in the colon, especially in the rectum. Would benefit from the fecal impaction with manual disimpaction and enemas, will be taken up and discussed with the ICU team. Harjeet Guerrero MD
[2017-07-14] MEDS ORDERED: Phenytoin 100 mg/2 ml Inj ONE (05:17)
[2017-07-14] MEDS: PHENYTOIN IVPB SCH ×2 (05:21→21:08)
[2017-07-14] MEDS: SODIUM CHLORIDE 0.9% IVPB SCH ×2 (05:21→21:08)
[2017-07-14 06:34] LABS: BASO # 0.03 K/mm3 (0.0-2.0); BASO % 0.2 % (0.0-3.0); EOS # 0.2 (0.0-0.7); EOS % 1.2 % (1.5-5.0); GRAN # 10.96 (1.4-6.5); GRAN % 88.5 % (50.0-68.0); HEMATOCRIT 31.4 % (42.0-52.0); LYMPH # 0.5 (1.2-3.4); LYMPH % 3.9 % (22.0-35.0); MEAN CORPUSCULAR HEMOGLOBIN 27.8 pg (25.0-35.0); MEAN CORPUSCULAR HGB CONC 30.9 g/dl (31.0-37.0); MEAN PLATELET VOLUME 9.4 fl (7.0-11.0); MONO # 0.8 (0.1-0.6); MONO % 6.2 % (1.0-6.0); RED CELL DISTRIBUTION WIDTH 19.5 % (11.5-14.5); WHITE BLOOD COUNT 12.4 10^3/ul (4.5-11.0)
[2017-07-14 06:57] LABS: ALB/GLOB RATIO 0.9 (1.1-1.8); ALKALINE PHOSPHATASE 879 U/L (38-126); ALT/SGPT 37 U/L (7-56); AST/SGOT 52 U/L (17-59); BILIRUBIN,TOTAL 2.5 mg/dL (0.2-1.3); BLOOD UREA NITROGEN 15 mg/dL (7-21); CALCIUM 7.8 mg/dL (8.4-10.5); CARBON DIOXIDE 25 mmol/L (21-33); CHLORIDE 116 mmol/L (98-107); GFR AFRICAN-AMERICAN > 60; GLUCOSE,RANDOM 166 mg/dL (70-110); POTASSIUM 3.6 mmol/L (3.6-5.0); SODIUM 149 mmol/L (132-148); TOTAL PROTEIN 5.9 g/dL (5.8-8.3)
--- NOTE | 2017-07-14 07:01 | PN ---
DATE: 07/13/2017 The patient was seen earlier today in the ICU 129, bed 3. CHIEF COMPLAINT: Weakness. The patient is generally weak and is a poor historian. PHYSICAL EXAMINATION: VITAL SIGNS: The patient's temperature is 98, blood pressure is 100/60, respiratory rate of 21, and heart rate of 108. HEENT: Unremarkable. NECK: Supple. LUNGS: Decreased breath sounds. HEART EXAM: Normal S1 and S2. ABDOMINAL EXAMINATION: Soft, nontender. LABORATORY DATA: Reveals a white count of 16,800, hemoglobin of 9. Chemistry reveals a BUN of 17, creatinine of 0.5, procalcitonin 1.0. Blood cultures are negative. Urine cultures are negative. The patient had a CAT scan of the abdomen and pelvis consistent with an ileus. ASSESSMENT AND PLAN: This is a 56-year-old with systemic inflammatory response syndrome with ileus, and , hypertension, diabetes mellitus, . The patient with pancreatic cancer with liver metastases, status post chemotherapy and radiation with negative blood cultures, negative urine cultures, currently on Zosyn. We will follow with you. Prognosis is quite poor. Mir Blanco MD
[2017-07-14] MEDS: Lidocaine 5% Patch TD SCH (09:22)
--- NOTE | 2017-07-14 10:16 | CP.PCM.PN ---
Subjective - Date & Time of Evaluation Date of Evaluation: 07/14/17 Time of Evaluation: 09:10 - Subjective Subjective: Comfortable, not in distress, afebrile, but still not very responsive. No fevers overnight. Objective - Vital Signs/Intake and Output Vital Signs (last 24 hours): Temp Pulse Resp BP Pulse Ox 97.8 F 82 17 108/62 99 07/14/17 06:00 07/14/17 06:00 07/14/17 06:00 07/14/17 06:00 07/14/17 06:00 Intake and Output: 07/13/17 07/14/17 18:59 06:59 Intake Total 1550 Output Total 750 Balance 800 - Medications Medications: Current Medications Donepezil HCl (Aricept) 10 mg PO DAILY [facility] Last Admin: 07/13/17 09:20 Dose: 10 mg Piperacillin Sod/Tazobactam Sod (Zosyn 4.5 Gm In Ns 100ml) 4.5 gm in 100 mls @ 200 mls/hr IVPB Q6 [facility] PRN Reason: Protocol Stop: 07/18/17 18:01 Last Admin: 07/14/17 05:22 Dose: 200 mls/hr Phenytoin 150 mg/ Sodium (Chloride) 53 mls @ 104 mls/hr IVPB Q12H [facility] Last Admin: 07/14/17 05:21 Dose: 104 mls/hr Potassium Chloride 20 meq/ (Sodium Chloride) 1,010 mls @ 100 mls/hr IV .Q10H6M [facility] Last Admin: 07/14/17 05:21 Dose: 100 mls/hr Lactulose (Enulose) 30 gm NG Q2H [facility] Stop: 07/14/17 14:46 Last Admin: 07/14/17 06:06 Dose: Not Given Lidocaine (Lidoderm) 1 ea TD DAILY [facility] Last Admin: 07/13/17 12:15 Dose: 1 ea Ondansetron HCl (Zofran Tab) 4 mg PO Q6H PRN PRN Reason: Nausea/Vomiting Pantoprazole Sodium (Protonix Inj) 40 mg IVP Q12H [facility] Last Admin: 07/13/17 22:20 Dose: 40 mg - Labs Labs: 07/14/17 06:10 07/14/17 00:45 PT 13.2 Seconds (9.9-11.8) H 07/12/17 09:00 INR 1.22 (0.93-1.08) H 07/12/17 09:00 APTT 26.1 Seconds (23.7-30.8) 07/12/17 09:00 - Constitutional Appears: Chronically Ill, Other (awake but still not very responsive) - Head Exam Head Exam: NORMAL INSPECTION - ENT Exam Additional comments: NGT in place - Neck Exam Neck Exam: absent: Meningismus - Respiratory Exam Respiratory Exam: Decreased Breath Sounds - Cardiovascular Exam Cardiovascular Exam: +S1, +S2 - GI/Abdominal Exam GI & Abdominal Exam: Distended, Firm, Soft. absent: Rigid, Tenderness Assessment and Plan - Assessment and Plan (Free Text) Plan: Assessment Systemic Inflammatory Response Syndrome, R/O sepsis from spontaneous bacterial peritonitis, R/O biliary tract infection acute encephalopathy probably due to hepatic encephalopathy pancreatic cancer with liver metastases S/P chemotherapy and radiation HTN DM dementia history of neurosyphilis seizure disorder asthma schizophrenia Plan blood and urine cx are negative; CXR only showed atelectasis; CT scan of the abdomen and pelvis did not show acute pathology except for ascites will continue Zosyn (day 3) for possible SBP follow up GI plans for evaluation of the common bile duct (has stent there because of blockage associated with pancreatic cancer) continue treatment for hepatic encephalopathy (ie. lactulose and Rifaximin) will continue to monitor clinically Overall prognosis is poor
--- NOTE | 2017-07-14 15:13 | PN ---
DATE: 07/14/2017 NEUROLOGY FOLLOWUP CHIEF COMPLAINT: Followup for altered mental status. SUBJECTIVE: The patient is seen and examined at bedside. The patient is in no acute distress, but still drowsy, open eyes, moves extremities spontaneously, tracking intermittently and mumbles, following intermittently simple commands, WBC count has trended down, it is 12.4 today. He has elevated ammonia level of 102 today. GI is on the case and his CAT scan of the abdomen showed some ascites. ID is on board for antibiotic treatment with possible spontaneous bacterial peritonitis, on Zosyn. The patient is on lactulose. The patient is on phenytoin for seizure prophylaxis. PAST MEDICAL HISTORY: History of dementia, history of neurosyphilis, seizure disorder, asthma, schizophrenia, diabetes, vasovagal syncope, hypertension, pancreatic cancer with liver metastasis status post chemo and radiation. REVIEW OF SYSTEMS: Difficult to obtain due to patient's drowsy mental status. ALLERGIES: NO KNOWN DRUG ALLERGIES. SOCIAL HISTORY: No illicit drug use, smoking or ETOH abuse. MEDICATIONS: Reviewed by nurse and per reconciliation sheet. PHYSICAL EXAMINATION: VITAL SIGNS: Temperature 97.8, pulse rate of 90, blood pressure of 98/59. GENERAL: The patient is drowsy, in no acute distress. HEENT: Atraumatic and normocephalic. PERRLA. Has some mild jaundice. NECK: Supple. No JVD. No adenopathy noted. LUNGS: Slight decreased breath sounds bilaterally. HEART: S1 and S2. Tachycardic. No murmurs, rubs or gallops. ABDOMEN: Distended, but mildly firm and hyperactive. EXTREMITIES: No clubbing and no cyanosis. Peripheral pulses are 2+ felt bilaterally. NEUROLOGIC: The patient is drowsy, follow simple commands, open his eyes to voice. Cranial nerves II through XII are intact. Motor exam: Slight increased tone throughout. Moves all extremities equally. Sensory exam: Withdraws to localized noxious stimulus. DTRs are 1+ throughout. Co-ordination and gait deferred for now. LABORATORY DATA: Sodium is 149, potassium 3.6, chloride 116, carbon dioxide 25, BUN 15, creatinine is 0.4 and random glucose is 166. Ammonia level is 102. ASSESSMENT AND PLAN: This is a 56-year-old man with past medical history of pancreatic cancer status post chemo and radiation with liver metastasis, hypertension, type 2 diabetes mellitus, dyslipidemia, neurosyphilis, seizures, asthma, schizophrenia, prior lacunar infarct presented to the hospital for generalized weakness, altered mental status found to have one episode of hematemesis, found to have elevated ammonia levels and metabolic derangements. His altered mental status is likely secondary to underling toxic metabolic encephalopathy with additional component of hepatic encephalopathy with elevated ammonia levels. In the setting of all of underlying pancreatic cancer with metastasis to the liver and ammonia level today is 102 which is slightly worsened, GI is on the case. At this time, we will recommended; 1. Continue with Dilantin IV 150 mg q. 12 for seizure prophylaxis. 2. Avoid sedative meds. 3. Continue with ID's recommendation with Zosyn for possible spontaneous bacterial peritonitis. 4. Follow with GI's recommendations. 5. Monitor electrolyte derangements and correct accordingly. 6. Continue with current present medical ICU management. No further neurologic workup at this time. Prognosis seems poor. Lake Gambino MD
[2017-07-14 16:12] LABS: BLOOD UREA NITROGEN 14 mg/dL (7-21); CALCIUM 8.1 mg/dL (8.4-10.5); CARBON DIOXIDE 24 mmol/L (21-33); CHLORIDE 115 mmol/L (98-107); GFR AFRICAN-AMERICAN > 60; GLUCOSE,RANDOM 173 mg/dL (70-110); POTASSIUM 3.6 mmol/L (3.6-5.0); SODIUM 151 mmol/L (132-148)
--- NOTE | 2017-07-14 22:03 | PN ---
DATE: 07/14/2017 SUBJECTIVE: The patient is seen and examined at the bedside, looking comfortable. Still sleepy, but arousable with command, doing sudden all four extremity movements. Following once in a while command. Transferred from the unit to the telemetry. CAT scan of the abdomen showed some ascites. No nausea or vomiting. No fever. No chills. PHYSICAL EXAMINATION: VITAL SIGNS: Temperature 97.8, pulse 90, blood pressure 95/59. HEENT: Head is normocephalic, atraumatic. Eyes, closed. Nose patent. Mucous membranes moist. NECK: Supple. No carotid bruits. No JVD. No thyromegaly. LUNGS: Slight decreased breath sounds bilaterally. HEART: S1 and S2 positive, tachycardia. ABDOMEN: Soft. Bowel sounds positive. No organomegaly. Distended. Mildly hyperactive bowel sounds. EXTREMITIES: No edema. No cyanosis. NEUROLOGIC: The patient is drowsy, sleepy, arousable. Opens eyes on voice. Cranial nerves II through XII were intact. LABORATORY DATA: Sodium 149, potassium 3.6, BUN 15, creatinine 0.4, chloride 116, glucose 166, ammonia level 102. MEDICATIONS: Reviewed by me. The patient is on Aricept, Lidoderm, phenytoin, potassium, Protonix, Zofran, Zosyn. ASSESSMENT AND PLAN: Mr. John Saha is 56 years old male with past medical history of pancreatic cancer status post chemotherapy and radiation therapy with metastasis, hypertension, diabetes mellitus type 2 non-insulin requiring, dyslipidemia, dementia, seizures, neurosyphilis, schizophrenia, history of prior lacunar infarcts, altered mental status found to have episode of hematemesis, ammonia level was high, metabolic derangement. According to neurologist, altered mental status is likely secondary to underlying toxic metabolic encephalopathy with additional components of hepatic encephalopathy with elevated ammonia level. Ammonia level is trending down and GI is on the case. Continue Dilantin. Avoid sedative medication. According to ID, continue Zosyn. May be the patient has spontaneous bacterial peritonitis. Continue monitoring electrolyte derangement. Discussion done with circle shear operator. The patient seen by neurologist and ID and oncology. We will follow up. Michelle Castillo MD
[2017-07-15] MEDS: Piperacill/Tazo 4.5gm in NS 4.5 GM/100 ML BAG IVPB SCH ×4 (00:08→17:49)
[2017-07-15] MEDS: PHENYTOIN IVPB SCH ×2 (06:15→17:47)
[2017-07-15] MEDS: SODIUM CHLORIDE 0.9% IVPB SCH ×2 (06:15→17:47)
[2017-07-15 08:33] LABS: ALB/GLOB RATIO 0.9 (1.1-1.8); ALKALINE PHOSPHATASE 968 U/L (38-126); ALT/SGPT 36 U/L (7-56); AST/SGOT 49 U/L (17-59); BILIRUBIN,TOTAL 2.4 mg/dL (0.2-1.3); BLOOD UREA NITROGEN 12 mg/dL (7-21); CALCIUM 7.7 mg/dL (8.4-10.5); CARBON DIOXIDE 24 mmol/L (21-33); CHLORIDE 119 mmol/L (98-107); GFR AFRICAN-AMERICAN > 60; GLUCOSE,RANDOM 144 mg/dL (70-110); POTASSIUM 3.5 mmol/L (3.6-5.0); SODIUM 152 mmol/L (132-148); TOTAL PROTEIN 5.6 g/dL (5.8-8.3)
[2017-07-15] MEDS: Lidocaine 5% Patch TD SCH (12:10)
--- NOTE | 2017-07-15 13:02 | CP.PCM.PN ---
Subjective - Date & Time of Evaluation Date of Evaluation: 07/15/17 Time of Evaluation: 10:20 - Subjective Subjective: Comfortable, not in distress, afebrile, still with some confusion. Objective - Vital Signs/Intake and Output Vital Signs (last 24 hours): Temp Pulse Resp BP Pulse Ox 98.3 F 91 H 18 94/54 L 97 07/15/17 06:00 07/15/17 06:00 07/15/17 06:00 07/15/17 06:00 07/15/17 06:00 Intake and Output: 07/15/17 07/15/17 06:59 18:59 Intake Total 0 Output Total 400 Balance -400 - Medications Medications: Current Medications Donepezil HCl (Aricept) 10 mg PO DAILY [facility] Last Admin: 07/14/17 10:33 Dose: 10 mg Piperacillin Sod/Tazobactam Sod (Zosyn 4.5 Gm In Ns 100ml) 4.5 gm in 100 mls @ 200 mls/hr IVPB Q6 [facility] PRN Reason: Protocol Stop: 07/18/17 18:01 Last Admin: 07/15/17 05:11 Dose: 200 mls/hr Phenytoin 150 mg/ Sodium (Chloride) 53 mls @ 104 mls/hr IVPB Q12H [facility] Last Admin: 07/15/17 06:15 Dose: 104 mls/hr Potassium Chloride 20 meq/ (Sodium Chloride) 1,010 mls @ 100 mls/hr IV .Q10H6M [facility] Last Admin: 07/15/17 12:13 Dose: 100 mls/hr Lidocaine (Lidoderm) 1 ea TD DAILY [facility] Last Admin: 07/15/17 12:10 Dose: 1 ea Ondansetron HCl (Zofran Tab) 4 mg PO Q6H PRN PRN Reason: Nausea/Vomiting Last Admin: 07/14/17 15:21 Dose: 4 mg Pantoprazole Sodium (Protonix Inj) 40 mg IVP Q12H [facility] Last Admin: 07/15/17 12:10 Dose: 40 mg - Labs Labs: 07/14/17 06:10 07/15/17 08:04 PT 13.2 Seconds (9.9-11.8) H 07/12/17 09:00 INR 1.22 (0.93-1.08) H 07/12/17 09:00 APTT 26.1 Seconds (23.7-30.8) 07/12/17 09:00 - Constitutional Appears: Non-toxic, No Acute Distress - Head Exam Head Exam: NORMAL INSPECTION - ENT Exam ENT Exam: Mucous Membranes Moist - Neck Exam Neck Exam: absent: Lymphadenopathy, Meningismus - Respiratory Exam Respiratory Exam: Decreased Breath Sounds - Cardiovascular Exam Cardiovascular Exam: +S1, +S2 - GI/Abdominal Exam GI & Abdominal Exam: Soft. absent: Tenderness Assessment and Plan - Assessment and Plan (Free Text) Plan: Assessment Systemic Inflammatory Response Syndrome, R/O sepsis from spontaneous bacterial peritonitis acute encephalopathy probably due to hepatic encephalopathy pancreatic cancer with liver metastases S/P chemotherapy and radiation HTN DM dementia history of neurosyphilis seizure disorder asthma schizophrenia Plan blood and urine cx are negative; CXR only showed atelectasis; CT scan of the abdomen and pelvis did not show acute pathology except for ascites will continue Zosyn (day 4) for possible SBP to complete 5-7 days of therapy continue treatment for hepatic encephalopathy (ie. lactulose and Rifaximin) will continue to monitor clinically Overall prognosis is poor
--- NOTE | 2017-07-15 15:51 | PN ---
DATE OF SERVICE: 07/15/2017 LOCATION: The patient is in room #268, bed #1. SUBJECTIVE: This is a 56-year-old male with schizophrenia, seizure disorder, on multiple medicines, also has a diagnosis of metastatic carcinoma of the pancreas with a metal stent that had been placed about 10 months ago, currently on systemic chemotherapy with Abraxane and gemcitabine given twice a month, was admitted through the Oncology Clinic with clinical evidence of sepsis after he was brought to the clinic from the subacute rehab where according to the nurses he had not been feeling well for 24 hours prior to the admission with worsening symptomatology, nausea, vomiting, inability to keep food down. The patient was noted to be septic and was admitted to the Unit with lactic acidosis and evidence of hepatic encephalopathy. The patient has been gradually improving and the thought was maybe it is spontaneous bacterial peritonitis and/or possibly infection related to the hepatobiliary system because of his stent. The patient has been clinically improving over the course of the last few days. OBJECTIVE: GENERAL: The patient is comfortable. He is afebrile, but is confused. The patient is examined in bed. The patient appears to be nontoxic, in no acute distress. VITAL SIGNS: Stable, T-max is 98.4, pulse is 91, respiration is 18, blood pressure 94/54, pulse ox is 97. HEENT: Head is normocephalic and atraumatic. Conjunctivae are pale. Sclerae are anicteric. Pupils are equally reactive to light and accommodation. Examination of the oropharynx reveals no oropharyngeal lesions. Tongue is coated. NECK: Supple. There is no adenopathy. LUNGS: Clear to percussion and auscultation. HEART: S1 and S2 to be normal. ABDOMEN: Soft, nontender. Liver and spleen are palpable. No evidence of overt ascites noted. EXTREMITIES: Reveal no cyanosis, clubbing, or edema. NEUROLOGIC: The patient's affect is affected and he is not responsive, though he opens his eyes. MEDICATIONS: The patient's medications were reviewed at this time and they include Aricept 10 mg p.o. daily, piperacillin 4.5 g IV q. 6 hours. He is on phenytoin 150 mg IV piggyback q. 12 hours. He is on IV fluid with potassium replacement 100 mL an hour, Lidocaine gel one daily. He is on ondansetron 4 mg q. 6h p.r.n., Protonix 40 mg IV q. 12 hours. LABORATORY DATA: From yesterday reveals a white count of 12.4, hemoglobin 9.7, hematocrit 31, platelet count of 592,000. Sodium is 152, potassium 3.5, chloride 119, CO2 of 24, BUN of 12, creatinine 0.4, blood sugar 144, PT/INR was relatively within normal limit. ASSESSMENT: The patient has systemic inflammatory response, rule out sepsis and spontaneous bacterial peritonitis, acute encephalopathy, probably a combination of several things including hepatic encephalopathy, underlying stage IV metastatic carcinoma of the pancreas, on chemotherapy, status post radiation, history of neurosyphilis, seizure disorder, schizophrenia, and diabetes mellitus. PLAN: We will continue antibiotics as per ID. Chemotherapy is on hold. We will revisit the issue of further treatment once the patient's neurologic situation and metabolic situation correct. The patient continues to be treated with lactulose and rifaximin and he is on Zosyn day #4 for spontaneous bacterial peritonitis. Overall prognosis is guarded at this point in time. I have discussed my findings in detail with the patient's field care advocate as well. Ge Finch MD
--- NOTE | 2017-07-15 20:57 | CP.PCM.PN ---
Subjective - Date & Time of Evaluation Date of Evaluation: 07/15/17 Time of Evaluation: 20:57 - Subjective Subjective: Gauge 16 NGT was inserted via right nare. Position confirmed with auscultation. CXR shows that tip is in fundus of stomach. Objective - Vital Signs/Intake and Output Vital Signs (last 24 hours): Temp Pulse Resp BP Pulse Ox 97.8 F 84 19 109/73 97 07/15/17 18:00 07/15/17 18:00 07/15/17 18:00 07/15/17 18:00 07/15/17 06:00 Intake and Output: 07/15/17 07/16/17 18:59 06:59 Intake Total 0 Output Total 400 Balance -400 - Medications Medications: Current Medications Donepezil HCl (Aricept) 10 mg PO HS AVA Piperacillin Sod/Tazobactam Sod (Zosyn 4.5 Gm In Ns 100ml) 4.5 gm in 100 mls @ 200 mls/hr IVPB Q6 [facility] PRN Reason: Protocol Stop: 07/18/17 18:01 Last Admin: 07/15/17 17:49 Dose: 200 mls/hr Phenytoin 150 mg/ Sodium (Chloride) 53 mls @ 104 mls/hr IVPB Q12H [facility] Last Admin: 07/15/17 17:47 Dose: 104 mls/hr Potassium Chloride 20 meq/ (Sodium Chloride) 1,010 mls @ 100 mls/hr IV .Q10H6M [facility] Last Admin: 07/15/17 12:13 Dose: 100 mls/hr Lactulose (Enulose) 10 gm NG Q6 [facility] Last Admin: 07/15/17 18:33 Dose: 10 gm Lidocaine (Lidoderm) 1 ea TD DAILY [facility] Last Admin: 07/15/17 12:10 Dose: 1 ea Ondansetron HCl (Zofran Tab) 4 mg PO Q6H PRN PRN Reason: Nausea/Vomiting Last Admin: 07/14/17 15:21 Dose: 4 mg Pantoprazole Sodium (Protonix Inj) 40 mg IVP Q12H [facility] Last Admin: 07/15/17 12:10 Dose: 40 mg - Labs Labs: 07/14/17 06:10 07/15/17 08:04 PT 13.2 Seconds (9.9-11.8) H 07/12/17 09:00 INR 1.22 (0.93-1.08) H 07/12/17 09:00 APTT 26.1 Seconds (23.7-30.8) 07/12/17 09:00
[2017-07-16] MEDS: Piperacill/Tazo 4.5gm in NS 4.5 GM/100 ML BAG IVPB SCH ×4 (00:15→18:34)
--- NOTE | 2017-07-16 01:14 | PN ---
DATE: 07/15/2017 SUBJECTIVE: This patient was seen and evaluated earlier today. Abdomen appears less distended. PHYSICAL EXAMINATION: VITAL SIGNS: He is afebrile. Blood pressure of 106/66, pulse of 81, and respirations of 18. HEENT: Atraumatic. Anicteric. Jaundiced. NECK: Supple. HEART: S1 and S2 heard. LUNGS: Bilateral air entry present. ABDOMEN: Soft and less distended. No tenderness. EXTREMITIES: No cyanosis and no clubbing. LABORATORY DATA: Potassium of 3.5, total bilirubin of 2.4, AST of 49, and ALT of 36. IMPRESSION: This 56-year-old patient with: 1. Metastatic advanced pancreatic cancer admitted with sepsis and hepatic encephalopathy. The patient was getting lactulose enemas, the patient did have an abdominal distention. A CT scan was done, which was reviewed. The patient had a fecal impaction picture. 2. Manual disimpaction was done by me yesterday, large amount of stool removed. The patient has been restarted on lactulose again by NG tube. The patient is becoming more alert. 3. Obstructive jaundice status post biliary stent placement. There was some sludge and gravel in the distal end of the common bile duct. The patient has been on IV antibiotics as per ID for possible cholangitis. PLAN: We would recommend at this point: 1. Continue with antibiotics. 2. Follow up with the liver function test. 3. Hepatic encephalopathy now slowly improving. Continue with lactulose via the NG tube. 4. Fecal impaction status post manual disimpaction done. The patient did receive enemas. The patient did have another large bowel movement early today. We would recommend to follow up of the ammonia levels and also electrolytes and the liver function tests. We would consider ERCP based on the clinical progress. 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 Harjeet Guerrero MD
--- NOTE | 2017-07-16 02:28 | PN ---
DATE: SUBJECTIVE: The patient is a 56-year-old male. The patient is seen and examined in his room, comfortable,and do not look like in distress. He is not able to give review of system, but looks like do not have fever, do not look like to me he is distressed, and still confused. Actually on the baseline, he is confused because of advanced dementia, but now sleepy, arousable with simple commands. He is not able to follow command. PHYSICAL EXAMINATION: VITAL SIGNS: Temperature 98.3, pulse 91, respiratory rate 18, blood pressure 94/54, and pulse oximetry 97%. HEENT: Head is normocephalic and atraumatic. Eyes, PERRLA. Extraocular muscles intact. Conjunctivae clear. Nose patent. Mucous membranes moist. NECK: Supple. No carotid bruit, JVD, or thyromegaly. CHEST: Bilaterally symmetrical. HEART: S1 and S2 positive. LUNGS: Clear to auscultation. ABDOMEN: Soft. Bowel sounds positive. No organomegaly. EXTREMITIES: No edema. No cyanosis. NEUROLOGIC: The patient is sleepy, arousable. Moving all 4 extremities. MEDICATIONS: Aricept, Zosyn, NS, Lidoderm patch, Zofran, and Protonix. LABORATORY DATA: White blood cell count 12.4, hemoglobin 9.7, hematocrit 31.4, and platelets 592. Sodium 152, potassium 3.5, BUN 12, creatinine 0.4, and glucose 144. ASSESSMENT: Mr. John Saha is a 56-year-old male with leukocytosis, anemia, thrombocytosis, hypernatremia, hypokalemia, hyperglycemia, history of pancreatic cancer with metastasis, systemic inflammatory response syndrome, rule out sepsis may be from spontaneous bacterial peritonitis, acute encephalopathy probably due to hepatic encephalopathy. Ammonia level was high trending down, status post chemotherapy and radiation and hypertension, dementia, history of neurosyphilis, seizure disorder, asthma, and schizophrenia. PLAN: Continue present treatment. ID is on the case. Continue antibiotics as per ID. Neurology and oncology is on the case. CT scan of the abdomen and pelvis did not show any acute pathology except for ascites. Continue Zosyn. Continue hepatic encephalopathy treatment . We will followup. Michelle Castillo MD [facility] # [id number] [place]
[2017-07-16] MEDS: SODIUM CHLORIDE 0.9% IVPB SCH ×2 (05:07→20:09)
[2017-07-16] MEDS: PHENYTOIN IVPB SCH ×2 (05:07→20:09)
[2017-07-16] MEDS: Lidocaine 5% Patch TD SCH (10:27)
--- NOTE | 2017-07-16 10:28 | RAD ---
HISTORY: check tip of nasogastric tube. COMPARISON: No prior. FINDINGS: LUNGS: No active pulmonary disease. PLEURA: No significant pleural effusion identified, no pneumothorax apparent. CARDIOVASCULAR: Normal. OSSEOUS STRUCTURES: No significant abnormalities. VISUALIZED UPPER ABDOMEN: Tip of nasogastric tube is in the gastric fundus in satisfactory position OTHER FINDINGS: None. IMPRESSION: Tip of nasogastric tube is in the gastric fundus in satisfactory position
--- NOTE | 2017-07-16 13:41 | CP.PCM.PN ---
Subjective - Date & Time of Evaluation Date of Evaluation: 07/16/17 Time of Evaluation: 09:55 - Subjective Subjective: Comfortable, not in distress, afebrile. Objective - Vital Signs/Intake and Output Vital Signs (last 24 hours): Temp Pulse Resp BP Pulse Ox 98.3 F 91 H 18 94/54 L 97 07/15/17 06:00 07/15/17 06:00 07/15/17 06:00 07/15/17 06:00 07/15/17 06:00 Intake and Output: 07/15/17 07/15/17 06:59 18:59 Intake Total 0 Output Total 400 Balance -400 - Medications Medications: Current Medications Donepezil HCl (Aricept) 10 mg PO DAILY [facility] Last Admin: 07/14/17 10:33 Dose: 10 mg Piperacillin Sod/Tazobactam Sod (Zosyn 4.5 Gm In Ns 100ml) 4.5 gm in 100 mls @ 200 mls/hr IVPB Q6 [facility] PRN Reason: Protocol Stop: 07/18/17 18:01 Last Admin: 07/15/17 05:11 Dose: 200 mls/hr Phenytoin 150 mg/ Sodium (Chloride) 53 mls @ 104 mls/hr IVPB Q12H [facility] Last Admin: 07/15/17 06:15 Dose: 104 mls/hr Potassium Chloride 20 meq/ (Sodium Chloride) 1,010 mls @ 100 mls/hr IV .Q10H6M [facility] Last Admin: 07/15/17 12:13 Dose: 100 mls/hr Lidocaine (Lidoderm) 1 ea TD DAILY [facility] Last Admin: 07/15/17 12:10 Dose: 1 ea Ondansetron HCl (Zofran Tab) 4 mg PO Q6H PRN PRN Reason: Nausea/Vomiting Last Admin: 07/14/17 15:21 Dose: 4 mg Pantoprazole Sodium (Protonix Inj) 40 mg IVP Q12H [facility] Last Admin: 07/15/17 12:10 Dose: 40 mg - Labs Labs: 07/14/17 06:10 07/15/17 08:04 PT 13.2 Seconds (9.9-11.8) H 07/12/17 09:00 INR 1.22 (0.93-1.08) H 07/12/17 09:00 APTT 26.1 Seconds (23.7-30.8) 07/12/17 09:00 - Constitutional Appears: Non-toxic, No Acute Distress - Head Exam Head Exam: NORMAL INSPECTION - Neck Exam Neck Exam: absent: Meningismus - Respiratory Exam Respiratory Exam: Decreased Breath Sounds - Cardiovascular Exam Cardiovascular Exam: +S1, +S2 - GI/Abdominal Exam GI & Abdominal Exam: Distended, Soft. absent: Guarding, Rigid, Tenderness Assessment and Plan - Assessment and Plan (Free Text) Plan: Assessment Systemic Inflammatory Response Syndrome, R/O sepsis from spontaneous bacterial peritonitis acute encephalopathy probably due to hepatic encephalopathy pancreatic cancer with liver metastases S/P chemotherapy and radiation HTN DM dementia history of neurosyphilis seizure disorder asthma schizophrenia Plan blood and urine cx are negative; CXR only showed atelectasis; CT scan of the abdomen and pelvis did not show acute pathology except for ascites will continue Zosyn (day 5) for possible SBP to complete 5-7 days of therapy continue treatment for hepatic encephalopathy (ie. lactulose and Rifaximin) will continue to monitor clinically Overall prognosis is poor
[2017-07-16 18:35] LABS: BASO # 0.03 K/mm3 (0.0-2.0); BASO % 0.2 % (0.0-3.0); EOS # 0.1 (0.0-0.7); GRAN % 88.3 % (50.0-68.0); HEMATOCRIT 33.9 % (42.0-52.0); LYMPH # 0.5 (1.2-3.4); LYMPH % 3.8 % (22.0-35.0); MEAN CELL VOLUME 92.1 fl (80.0-105.0); MEAN CORPUSCULAR HGB CONC 30.4 g/dl (31.0-37.0); MEAN PLATELET VOLUME 9.4 fl (7.0-11.0); MONO # 0.9 (0.1-0.6); MONO % 6.7 % (1.0-6.0); PLATELET COUNT 503 10^3/uL (120.0-450.0); RED CELL DISTRIBUTION WIDTH 20.4 % (11.5-14.5); WHITE BLOOD COUNT 12.9 10^3/ul (4.5-11.0)
[2017-07-16 18:46] LABS: ALB/GLOB RATIO 0.9 (1.1-1.8); ALKALINE PHOSPHATASE 1247 U/L (38-126); ALT/SGPT 37 U/L (7-56); AST/SGOT 57 U/L (17-59); BILIRUBIN,TOTAL 2.4 mg/dL (0.2-1.3); BLOOD UREA NITROGEN 11 mg/dL (7-21); CALCIUM 8.1 mg/dL (8.4-10.5); CARBON DIOXIDE 23 mmol/L (21-33); CHLORIDE 119 mmol/L (98-107); GFR AFRICAN-AMERICAN > 60; GLUCOSE,RANDOM 114 mg/dL (70-110); POTASSIUM 3.6 mmol/L (3.6-5.0); SODIUM 154 mmol/L (132-148)
[2017-07-16 19:23] LABS: ANISOCYTOSIS 1+; EOSINOPHIL 3 % (0.0-3.0); HYPOCHROMIA 1+; NEUTROPHIL 86 % (50.0-70.0); PLATELET ESTIMATE HIGH (NORMAL); POLYCHROMASIA SLIGHT
--- NOTE | 2017-07-16 20:50 | CP.PCM.PN ---
Subjective - Date & Time of Evaluation Date of Evaluation: 07/16/17 Time of Evaluation: 20:48 - Subjective Subjective: It was requested to renew restraint orders . Patient has NG tube in which he is trying to pull out. No other complaints. Medical record was reviewed. Has PMH of pancreatic cancer, DM II, HLD, neurosyphillis, dementia, obstructive jaundice, HTN, asthma, seizure. Objective - Vital Signs/Intake and Output Vital Signs (last 24 hours): Temp Pulse Resp BP Pulse Ox 98 F 84 18 115/73 98 07/16/17 18:00 07/16/17 18:00 07/16/17 18:00 07/16/17 18:00 07/16/17 06:00 Intake and Output: 07/16/17 07/17/17 18:59 06:59 Intake Total 0 Output Total 1450 Balance -1450 - Medications Medications: Current Medications Donepezil HCl (Aricept) 10 mg PO HS [facility] Last Admin: 07/15/17 22:30 Dose: 10 mg Piperacillin Sod/Tazobactam Sod (Zosyn 4.5 Gm In Ns 100ml) 4.5 gm in 100 mls @ 200 mls/hr IVPB Q6 [facility] PRN Reason: Protocol Stop: 07/18/17 18:01 Last Admin: 07/16/17 18:34 Dose: 200 mls/hr Phenytoin 150 mg/ Sodium (Chloride) 53 mls @ 104 mls/hr IVPB Q12H [facility] Last Admin: 07/16/17 20:09 Dose: 104 mls/hr Potassium Chloride 20 meq/ (Sodium Chloride) 1,010 mls @ 100 mls/hr IV .Q10H6M [facility] Last Admin: 07/16/17 18:47 Dose: Not Given Lactulose (Enulose) 10 gm NG Q6 [facility] Last Admin: 07/16/17 18:35 Dose: 10 gm Lidocaine (Lidoderm) 1 ea TD DAILY [facility] Last Admin: 07/16/17 10:27 Dose: 1 ea Ondansetron HCl (Zofran Tab) 4 mg PO Q6H PRN PRN Reason: Nausea/Vomiting Last Admin: 07/15/17 23:15 Dose: 4 mg Pantoprazole Sodium (Protonix Inj) 40 mg IVP Q12H [facility] Last Admin: 07/16/17 10:30 Dose: 40 mg - Labs Labs: 07/16/17 18:00 07/16/17 18:00 PT 13.2 Seconds (9.9-11.8) H 07/12/17 09:00 INR 1.22 (0.93-1.08) H 07/12/17 09:00 APTT 26.1 Seconds (23.7-30.8) 07/12/17 09:00 - Constitutional Appears: Well, No Acute Distress - Head Exam Head Exam: ATRAUMATIC, NORMAL INSPECTION, NORMOCEPHALIC - Eye Exam Eye Exam: Normal appearance - ENT Exam ENT Exam: Normal External Ear Exam - Neck Exam Neck Exam: Normal Inspection - Respiratory Exam Respiratory Exam: NORMAL BREATHING PATTERN - Cardiovascular Exam Cardiovascular Exam: absent: JVD - GI/Abdominal Exam GI & Abdominal Exam: absent: Distended - Rectal Exam Rectal Exam: Deferred - Exam Additional comments: Deferred. - Extremities Exam Extremities Exam: Normal Inspection - Back Exam Back Exam: NORMAL INSPECTION - Neurological Exam Neurological Exam: Altered - Psychiatric Exam Psychiatric exam: Normal Affect, Normal Mood - Skin Skin Exam: Normal Color Assessment and Plan - Assessment and Plan (Free Text) Assessment: Intermittent agitation. Pancreatic cancer. DM II. HTN. Obstructive jaundice. Seizure. Asthma. HLD. Dementia. Neurosyphillis. Plan: Bilateral wrist restraint renewed. Continue present management.
--- NOTE | 2017-07-16 23:49 | PN ---
DATE: 07/16/2017 SUBJECTIVE: The patient is seen and examined at the bedside. More awake and alert, but little bit restless. Has wrist restraint; otherwise, he was pulling his NG tube. Afebrile. Not in distress. PHYSICAL EXAMINATION VITAL SIGNS: Temperature 98.3, pulse 91, respiratory rate 18, blood pressure 94/54 and pulse oximetry 97%. HEENT: Head is normocephalic and atraumatic. Eyes; PERRLA. Extraocular muscles intact. Conjunctivae clear. Nose patent. Mucous membranes moist. NECK: Supple. No carotid bruit. No JVD or thyromegaly. CHEST: Bilaterally symmetrical. HEART: S1 and S2 positive. LUNGS: Clear to auscultation. ABDOMEN: Soft. Bowel sounds positive. No organomegaly. EXTREMITIES: No edema. No cyanosis. NEUROLOGIC: The patient is awake and alert. Moving all four extremities. No focal deficits. MEDICATIONS: Donepezil, Zosyn, phenytoin, Lidoderm, Zofran, and pantoprazole. LABORATORY DATA: We do not have his labs today, but I reviewed old labs. ASSESSMENT AND PLAN: Mr. Yifan Lopez is a 56-year-old male with multiple medical problems, history of neurosyphilis, dementia, systemic inflammatory response syndrome, sepsis from spontaneous bacterial peritonitis, acute encephalopathy probably due to hepatic encephalopathy, pancreatic cancer with liver metastasis, active chemotherapy and radiation therapy, hypertension, diabetes mellitus, asthma, schizophrenia. Blood and urinary cultures are negative. Chest x-ray only showed atelectasis. CT of abdomen and pelvis did not show any acute pathology except for ascites. Continue Zosyn to complete the course of antibiotics as per infectious disease. Treatment of hepatic encephalopathy, lactulose and rifaximin. Appreciated Dr. Radha Degroot's input. The patient is seen by Dr. Guerrero also. Constipation; manual disimpaction was done yesterday by Dr. Guerrero, large amount of stool removed. The patient was started on lactulose again by nasogastric tube. The patient is becoming more alert, obstructive jaundice status post biliary stent placement. Continue antibiotics. Gastrointestinal and deep venous thrombosis prophylaxis. Repeat labs. We will follow. Michelle Castillo MD [facility] # [id number]
[2017-07-17] MEDS: Piperacill/Tazo 4.5gm in NS 4.5 GM/100 ML BAG IVPB SCH ×5 (01:02→23:56)
--- NOTE | 2017-07-17 02:27 | PN ---
DATE: 07/16/2017 SUBJECTIVE: This patient was seen and evaluated the earlier and discussed with the nursing staff. This is a 56-year-old patient. The patient did have a small amount of bowel movements. PHYSICAL EXAMINATION: GENERAL: More alert. VITAL SIGNS: Temperature is 99.3, blood pressure 111/75, pulse 92, and respirations 18. HEENT: Atraumatic. Anicteric. NECK: Supple. HEART: S1 and S2 heard. LUNGS: Bilateral air entry present. ABDOMEN: Still softly distended. EXTREMITIES: No cyanosis and no clubbing. LABORATORY DATA: WBC count has come down to 12.9, hemoglobin 10.3, hematocrit 33.9, and platelets 503. Alk phos is elevated at 1247 and total bilirubin 2.4. IMPRESSION: This is a 56-year-old patient with a metastatic advanced pancreatic cancer, admitted with hepatic encephalopathy. The patient is being getting p.o. lactulose and the patient did have a fecal impaction, status post manual disimpaction done. The patient also had some enema given today with moderate improvement. The concern is still persistently elevated ammonia level. The patient was given another enema. The plan is to pass the flatus tube. There is no significant improvement in an abdominal distention. We will continue the lactulose. Sepsis, rule out cholangitis. Rule out other differential diagnoses include spontaneous bacterial peritonitis, rule out cholangitis, rule out spontaneous bacterial peritonitis. The patient had a stent. There was some sludge present at distal end of the common bile duct. LFT remains stable 2.4, alkaline phosphatase significantly elevated 1247. Continue the antibiotics. We will follow up the LFTs. Thank you very much for allowing me to participate in the care of the patient. Harjeet Guerrero MD
[2017-07-17] MEDS: PHENYTOIN IVPB SCH ×2 (05:23→20:11)
[2017-07-17] MEDS: SODIUM CHLORIDE 0.9% IVPB SCH ×2 (05:23→20:11)
--- NOTE | 2017-07-17 06:06 | CP.PCM.PN ---
Subjective - Date & Time of Evaluation Date of Evaluation: 07/17/17 Time of Evaluation: 05:58 - Subjective Subjective: NGT was reinserted twice. Objective - Vital Signs/Intake and Output Vital Signs (last 24 hours): Temp Pulse Resp BP Pulse Ox 97.6 F 79 19 107/66 98 07/17/17 00:01 07/17/17 02:00 07/17/17 00:01 07/17/17 00:01 07/16/17 06:00 Intake and Output: 07/16/17 07/17/17 18:59 06:59 Intake Total 0 Output Total 1450 400 Balance -1450 -400 - Medications Medications: Current Medications Donepezil HCl (Aricept) 10 mg PO HS [facility] Last Admin: 07/16/17 21:41 Dose: Not Given Piperacillin Sod/Tazobactam Sod (Zosyn 4.5 Gm In Ns 100ml) 4.5 gm in 100 mls @ 200 mls/hr IVPB Q6 [facility] PRN Reason: Protocol Stop: 07/18/17 18:01 Last Admin: 07/17/17 01:02 Dose: 200 mls/hr Phenytoin 150 mg/ Sodium (Chloride) 53 mls @ 104 mls/hr IVPB Q12H [facility] Last Admin: 07/17/17 05:23 Dose: 104 mls/hr Potassium Chloride 20 meq/ (Sodium Chloride) 1,010 mls @ 100 mls/hr IV .Q10H6M [facility] Last Admin: 07/17/17 05:32 Dose: 100 mls/hr Lactulose (Enulose) 10 gm NG Q6 [facility] Last Admin: 07/16/17 23:52 Dose: 10 gm Lidocaine (Lidoderm) 1 ea TD DAILY [facility] Last Admin: 07/16/17 10:27 Dose: 1 ea Ondansetron HCl (Zofran Tab) 4 mg PO Q6H PRN PRN Reason: Nausea/Vomiting Last Admin: 07/15/17 23:15 Dose: 4 mg Pantoprazole Sodium (Protonix Inj) 40 mg IVP Q12H [facility] Last Admin: 07/16/17 21:42 Dose: 40 mg - Labs Labs: 07/16/17 18:00 07/16/17 18:00 PT 13.2 Seconds (9.9-11.8) H 07/12/17 09:00 INR 1.22 (0.93-1.08) H 07/12/17 09:00 APTT 26.1 Seconds (23.7-30.8) 07/12/17 09:00
--- NOTE | 2017-07-17 08:16 | RAD ---
HISTORY: NG tube placement check COMPARISON: 07/15/2017 FINDINGS: LUNGS: No active pulmonary disease. PLEURA: No significant pleural effusion identified, no pneumothorax apparent. CARDIOVASCULAR: Normal heart size. NG tube extends to left upper quadrant of abdomen. OSSEOUS STRUCTURES: No significant abnormalities. VISUALIZED UPPER ABDOMEN: Normal. OTHER FINDINGS: None. IMPRESSION: No active disease.
[2017-07-17] MEDS: Lidocaine 5% Patch TD SCH (10:46)
--- NOTE | 2017-07-17 12:05 | RAD ---
HISTORY: check ng tube placement COMPARISON: No prior. FINDINGS: BOWEL: Limited examination for evaluation of bowel gas. Only the upper abdomen is included. There is a nasogastric tube extending to the left upper quadrant of the abdomen. No evidence of bowel obstruction. BONES: Normal. OTHER FINDINGS: None. IMPRESSION: Nasogastric tube extends to left upper quadrant of abdomen.
--- NOTE | 2017-07-17 12:54 | CP.PCM.PN ---
<Vale Lo - Last Filed: 07/17/17 12:53> Subjective - Date & Time of Evaluation Date of Evaluation: 07/17/17 Time of Evaluation: 10:05 - Subjective Subjective: seen and examined at the bedside earlier today, the chart was reviewed. Patient NG tube in place but reported to have pulled out earlier today. Patient is awake, no other acute events reported. Objective - Vital Signs/Intake and Output Vital Signs (last 24 hours): Temp Pulse Resp BP Pulse Ox 98.3 F 94 H 20 117/71 98 07/17/17 06:00 07/17/17 06:00 07/17/17 06:00 07/17/17 06:00 07/17/17 06:00 Intake and Output: 07/17/17 07/17/17 06:59 18:59 Intake Total 1500 Output Total 400 Balance 1100 - Medications Medications: Current Medications Donepezil HCl (Aricept) 10 mg PO HS [facility] Last Admin: 07/16/17 21:41 Dose: Not Given Piperacillin Sod/Tazobactam Sod (Zosyn 4.5 Gm In Ns 100ml) 4.5 gm in 100 mls @ 200 mls/hr IVPB Q6 [facility] PRN Reason: Protocol Stop: 07/18/17 18:01 Last Admin: 07/17/17 11:01 Dose: 200 mls/hr Phenytoin 150 mg/ Sodium (Chloride) 53 mls @ 104 mls/hr IVPB Q12H [facility] Last Admin: 07/17/17 05:23 Dose: 104 mls/hr Potassium Chloride 20 meq/ (Sodium Chloride) 1,010 mls @ 100 mls/hr IV .Q10H6M [facility] Last Admin: 07/17/17 05:32 Dose: 100 mls/hr Lactulose (Enulose) 10 gm NG Q6 [facility] Last Admin: 07/17/17 11:01 Dose: 10 gm Lidocaine (Lidoderm) 1 ea TD DAILY [facility] Last Admin: 07/17/17 10:46 Dose: 1 ea Ondansetron HCl (Zofran Tab) 4 mg PO Q6H PRN PRN Reason: Nausea/Vomiting Last Admin: 07/15/17 23:15 Dose: 4 mg Pantoprazole Sodium (Protonix Inj) 40 mg IVP Q12H [facility] Last Admin: 07/17/17 10:46 Dose: 40 mg - Labs Labs: 07/16/17 18:00 07/16/17 18:00 PT 13.2 Seconds (9.9-11.8) H 07/12/17 09:00 INR 1.22 (0.93-1.08) H 07/12/17 09:00 APTT 26.1 Seconds (23.7-30.8) 07/12/17 09:00 - Constitutional Appears: No Acute Distress - Head Exam Head Exam: NORMOCEPHALIC - Eye Exam Eye Exam: Normal appearance. absent: Scleral icterus - ENT Exam ENT Exam: Mucous Membranes Moist - Neck Exam Neck Exam: Normal Inspection Additional comments: positive N G-tube - Respiratory Exam Respiratory Exam: NORMAL BREATHING PATTERN. absent: Respiratory Distress - Cardiovascular Exam Cardiovascular Exam: +S1, +S2 - GI/Abdominal Exam GI & Abdominal Exam: Distended, Normal Bowel Sounds. absent: Guarding, Tenderness, Rebound - Extremities Exam Extremities Exam: Normal Capillary Refill - Back Exam Back Exam: absent: CVA tenderness (L) - Neurological Exam Neurological Exam: Awake - Skin Skin Exam: Dry, Warm Assessment and Plan - Assessment and Plan (Free Text) Assessment: ASSESSMENT: 56-year-old male with PMH Pancreatic Cancer w/ metastasis, superior mesenteric vein thrombus admitted for altered mental status Hepatic encephalopathy may be secondary to sepsis Fecal impaction status post manual disimpaction Sepsis, rule out cholangitis Hematemesis Elevated LFT, r/o stent obstruction, ct scan from 06/2017 films were reviewed w/ Dr. 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 Seen and discussed w/ Dr. Guerrero. <Harjeet Guerrero V - Last Filed: 07/17/17 22:43> Objective - Vital Signs/Intake and Output Vital Signs (last 24 hours): Temp Pulse Resp BP Pulse Ox 97.6 F 81 20 103/64 98 07/17/17 18:00 07/17/17 18:00 07/17/17 18:00 07/17/17 18:00 07/17/17 06:00 - Medications Medications: Current Medications Donepezil HCl (Aricept) 10 mg PO HS [facility] Last Admin: 07/16/17 21:41 Dose: Not Given Piperacillin Sod/Tazobactam Sod (Zosyn 4.5 Gm In Ns 100ml) 4.5 gm in 100 mls @ 200 mls/hr IVPB Q6 [facility]A PRN Reason: Protocol Stop: 07/18/17 18:01 Last Admin: 07/17/17 20:09 Dose: 200 mls/hr Potassium Chloride 20 meq/ (Sodium Chloride) 1,010 mls @ 100 mls/hr IV .Q10H6M [facility] Last Admin: 07/17/17 05:32 Dose: 100 mls/hr Phenytoin 150 mg/ Sodium (Chloride) 53 mls @ 104 mls/hr IVPB 0600,1800 [facility] Last Admin: 07/17/17 20:11 Dose: 104 mls/hr Lactulose (Enulose) 10 gm NG Q6 [facility] Last Admin: 07/17/17 18:24 Dose: 10 gm Lidocaine (Lidoderm) 1 ea TD DAILY [facility] Last Admin: 07/17/17 10:46 Dose: 1 ea Ondansetron HCl (Zofran Tab) 4 mg PO Q6H PRN PRN Reason: Nausea/Vomiting Last Admin: 07/15/17 23:15 Dose: 4 mg Pantoprazole Sodium (Protonix Inj) 40 mg IVP Q12H [facility] Last Admin: 07/17/17 22:25 Dose: 40 mg Thiamine HCl (Vitamin B1 Inj) 100 mg IM BID [facility] - Labs Labs: 07/16/17 18:00 07/16/17 18:00 PT 13.2 Seconds (9.9-11.8) H 07/12/17 09:00 INR 1.22 (0.93-1.08) H 07/12/17 09:00 APTT 26.1 Seconds (23.7-30.8) 07/12/17 09:00 Attending/Attestation - Attestation I have personally seen and examined this patient.: Yes I have fully participated in the care of the patient.: Yes I have reviewed all pertinent clinical information, including history, physical exam and plan: Yes Notes (Text): this patient was seen and evaluated earlier. This is an addendum to the [facility] progress report dictated by Vale Lo APN Patient is slightly more alert. Abdomen still remains distended. Sepsis with hepatic encephalopathy. Patient did have a repeat CT scan done to further evaluate abdominal distention in view of the history of fecal impaction and colonic distention. Patient's sodium is also elevated to 154. CT review shows thickening of the colonic mucosa with increased ascites. Improvement of fecal impaction.. Official report pending Would request 1. Change IV fluids to half normal saline with KCl 2. Request for stool for C. difficile 3. CMP and ammonia level in a.m. 4. Would consider empiric therapy with Flagyl via NG tube Thank you very much Mister Louie. The care of the patient 07/17/17 22:40
--- NOTE | 2017-07-17 13:03 | CP.PCM.PN ---
Subjective - Date & Time of Evaluation Date of Evaluation: 07/17/17 Time of Evaluation: 10:15 - Subjective Subjective: Comfortable, still not very responsive, no fevers overnight, not in distress. Objective - Vital Signs/Intake and Output Vital Signs (last 24 hours): Temp Pulse Resp BP Pulse Ox 97.7 F 86 19 115/79 98 07/16/17 06:00 07/16/17 06:00 07/16/17 06:00 07/16/17 06:00 07/16/17 06:00 - Medications Medications: Current Medications Donepezil HCl (Aricept) 10 mg PO HS [facility] Last Admin: 07/15/17 22:30 Dose: 10 mg Piperacillin Sod/Tazobactam Sod (Zosyn 4.5 Gm In Ns 100ml) 4.5 gm in 100 mls @ 200 mls/hr IVPB Q6 [facility] PRN Reason: Protocol Stop: 07/18/17 18:01 Last Admin: 07/16/17 05:07 Dose: 200 mls/hr Phenytoin 150 mg/ Sodium (Chloride) 53 mls @ 104 mls/hr IVPB Q12H [facility] Last Admin: 07/16/17 05:07 Dose: 104 mls/hr Potassium Chloride 20 meq/ (Sodium Chloride) 1,010 mls @ 100 mls/hr IV .Q10H6M [facility] Last Admin: 07/16/17 11:06 Dose: Not Given Lactulose (Enulose) 10 gm NG Q6 [facility] Last Admin: 07/16/17 06:38 Dose: 10 gm Lidocaine (Lidoderm) 1 ea TD DAILY [facility] Last Admin: 07/16/17 10:27 Dose: 1 ea Ondansetron HCl (Zofran Tab) 4 mg PO Q6H PRN PRN Reason: Nausea/Vomiting Last Admin: 07/15/17 23:15 Dose: 4 mg Pantoprazole Sodium (Protonix Inj) 40 mg IVP Q12H [facility] Last Admin: 07/16/17 10:30 Dose: 40 mg - Labs Labs: 07/14/17 06:10 07/15/17 08:04 PT 13.2 Seconds (9.9-11.8) H 07/12/17 09:00 INR 1.22 (0.93-1.08) H 07/12/17 09:00 APTT 26.1 Seconds (23.7-30.8) 07/12/17 09:00 - Constitutional Appears: Non-toxic, No Acute Distress - Head Exam Head Exam: NORMAL INSPECTION - ENT Exam ENT Exam: Mucous Membranes Moist - Neck Exam Neck Exam: absent: Meningismus - Respiratory Exam Respiratory Exam: Decreased Breath Sounds - Cardiovascular Exam Cardiovascular Exam: +S1, +S2 - GI/Abdominal Exam GI & Abdominal Exam: Soft. absent: Tenderness Assessment and Plan - Assessment and Plan (Free Text) Plan: Assessment Systemic Inflammatory Response Syndrome, R/O sepsis from spontaneous bacterial peritonitis acute encephalopathy probably due to hepatic encephalopathy pancreatic cancer with liver metastases S/P chemotherapy and radiation HTN DM dementia history of neurosyphilis seizure disorder asthma schizophrenia Plan blood and urine cx are negative; CXR only showed atelectasis; CT scan of the abdomen and pelvis did not show acute pathology except for ascites will continue Zosyn (day 6) for possible SBP to complete 7 days of therapy continue treatment for hepatic encephalopathy (ie. lactulose and Rifaximin) will continue to monitor clinically Overall prognosis is poor
[2017-07-17] MEDS ORDERED: Barium Sulfate Susp 2.1% w/v, 2.0% w/w 450 mL Bottle PO ONE (14:35)
--- NOTE | 2017-07-17 18:50 | CP.PCM.PN ---
<Jorge Mckinley - Last Filed: 07/17/17 18:33> Subjective - Date & Time of Evaluation Date of Evaluation: 07/17/17 Time of Evaluation: 09:10 - Subjective Subjective: Neurology Progress Note for Dr. Gambino service Patient seen and examined at bedside. Overnight, patient twice pulled out his NGT, necessitating replacement and placement of wrist restraints. Reacts to physical and loud verbal stimuli, but not answering questions or following commands. Occasionally will open eyes spontaneously, but otherwise remains lethargic/obtunded. Objective - Vital Signs/Intake and Output Vital Signs (last 24 hours): Temp Pulse Resp BP Pulse Ox 97.6 F 81 20 103/64 98 07/17/17 18:00 07/17/17 18:00 07/17/17 18:00 07/17/17 18:00 07/17/17 06:00 Intake and Output: 07/17/17 07/17/17 06:59 18:59 Intake Total 1500 Output Total 400 Balance 1100 - Medications Medications: Current Medications Donepezil HCl (Aricept) 10 mg PO HS [facility] Last Admin: 07/16/17 21:41 Dose: Not Given Piperacillin Sod/Tazobactam Sod (Zosyn 4.5 Gm In Ns 100ml) 4.5 gm in 100 mls @ 200 mls/hr IVPB Q6 [facility] PRN Reason: Protocol Stop: 07/18/17 18:01 Last Admin: 07/17/17 11:01 Dose: 200 mls/hr Potassium Chloride 20 meq/ (Sodium Chloride) 1,010 mls @ 100 mls/hr IV .Q10H6M [facility] Last Admin: 07/17/17 05:32 Dose: 100 mls/hr Phenytoin 150 mg/ Sodium (Chloride) 53 mls @ 104 mls/hr IVPB 0600,1800 [facility] Lactulose (Enulose) 10 gm NG Q6 [facility] Last Admin: 07/17/17 18:24 Dose: 10 gm Lidocaine (Lidoderm) 1 ea TD DAILY [facility] Last Admin: 07/17/17 10:46 Dose: 1 ea Ondansetron HCl (Zofran Tab) 4 mg PO Q6H PRN PRN Reason: Nausea/Vomiting Last Admin: 07/15/17 23:15 Dose: 4 mg Pantoprazole Sodium (Protonix Inj) 40 mg IVP Q12H [facility] Last Admin: 07/17/17 10:46 Dose: 40 mg - Labs Labs: 07/16/17 18:00 07/16/17 18:00 PT 13.2 Seconds (9.9-11.8) H 07/12/17 09:00 INR 1.22 (0.93-1.08) H 07/12/17 09:00 APTT 26.1 Seconds (23.7-30.8) 07/12/17 09:00 - Additional Findings Additional findings: - Constitutional Appears: Other (Lethargic/Somnolent, minimally responsive) - Head Exam Head Exam: ATRAUMATIC, NORMAL INSPECTION, NORMOCEPHALIC - Eye Exam Eye Exam: PERRL, Scleral icterus (mild icterus bilaterally). absent: Conjunctival injection, EOMI (not following commands for EOMI testing, but some eye movement away from direct light challenge for PERRL assessment) Pupil Exam: NORMAL ACCOMODATION, PERRL. absent: Fixed, Irregular, Unequal - ENT Exam ENT Exam: Mucous Membranes Moist, NGT in place secured with tape, Protecting airway - Neck Exam Neck Exam: absent: Lymphadenopathy, Thyromegaly - Respiratory Exam Respiratory Exam: Decreased Breath Sounds (mild in all gabriel) otherwise CTAB, NORMAL BREATHING PATTERN. absent: Accessory Muscle Use, Chest Wall Tenderness, Prolonged Expiratory Phase, Rales, Rhonchi, Wheezes, Respiratory Distress, Stridor - Cardiovascular Exam Cardiovascular Exam: RRR, REGULAR RHYTHM, +S1, +S2. absent: Tachycardia, Bradycardia, Irregular Rhythm, JVD, RRR, +S4 - GI/Abdominal Exam GI & Abdominal Exam: Distended (unchanged from prior exams), Firm, Diminished Bowel Sounds. absent: Rigid, Soft, Hyperactive Bowel Sounds, Hypoactive Bowel Sounds, Normal Bowel Sounds - Rectal Exam Rectal Exam: Deferred - Extremities Exam Extremities Exam: holding flaccidly normally but some spontaneous movement, reacts to physical stimuli at extremities with movement/attempting to retract, + 2 radial and +1 dorsalis pedis pulses. absent: Joint Swelling, Pedal Edema - Neurological Exam Additional comments: somnolent/lethargic/obtunded withdraws from painful stimuli Some spontaneous movements in all extremities, withdraws from painful stimuli, otherwise holding all extremities flaccidly GCS 8 (E3 V1 M4) - Psychiatric Exam Additional comments: difficult to assess due to minimally responsive/non-verbal state following few commands, obtunded - Skin Skin Exam: Dry, Intact, Warm Assessment and Plan - Assessment and Plan (Free Text) Assessment: This is a 56 yo M with PMH of pancreatic Ca s/p chemo-rads, HTN, DM, dyslipidemia, neurosyphillus, seizures, asthma schizophrenia, and prior lacunar infarcts who [place] [facility] [place] of weakness and altered mental status (sent from oncology clinic), and later developed worsening mental status and hematemesis. His altered mental status is likely due to toxic metabolic encephalopathy with an additional component of hepatic encephalopathy given his highly elevated ammonia, all in the setting of underlying pancreatic cancer. His elevated ammonia has persisted (ranging from 80's-110's) despite regular lactulose and rifaximin dosing. His obtunded mental state will persist as long as his ammonia level remains elevated. Plan: 1) Continue dilantin for seizure ppx; continue IV formulation given persistent obtunded state 2) Avoid sedative medications 3) Thiamine 100mg BID for cognition 4) new set of blood culture due to his new leukocytosis were drawn, remain negative at 5 days 5) continue medical management as per primary team and GI Patient reviewed and discussed with attending, Dr. Gambino. <Lake Gambino - Last Filed: 07/18/17 00:25> Objective - Vital Signs/Intake and Output Vital Signs (last 24 hours): Temp Pulse Resp BP Pulse Ox 97.6 F 81 20 103/64 98 07/17/17 18:00 07/17/17 18:00 07/17/17 18:00 07/17/17 18:00 07/17/17 06:00 - Medications Medications: Current Medications Donepezil HCl (Aricept) 10 mg PO HS [facility] Last Admin: 07/17/17 23:44 Dose: Not Given Piperacillin Sod/Tazobactam Sod (Zosyn 4.5 Gm In Ns 100ml) 4.5 gm in 100 mls @ 200 mls/hr IVPB Q6 [facility] PRN Reason: Protocol Stop: 07/18/17 18:01 Last Admin: 07/17/17 23:56 Dose: 200 mls/hr Phenytoin 150 mg/ Sodium (Chloride) 53 mls @ 104 mls/hr IVPB 0600,1800 [facility] Last Admin: 07/17/17 20:11 Dose: 104 mls/hr Potassium Chloride 20 meq/ (Sodium Chloride) 1,010 mls @ 100 mls/hr IV .Q10H6M [facility] Last Admin: 07/17/17 23:56 Dose: 100 mls/hr Lactulose (Enulose) 10 gm NG Q6 [facility] Last Admin: 07/18/17 00:05 Dose: Not Given Lidocaine (Lidoderm) 1 ea TD DAILY [facility] Last Admin: 07/17/17 10:46 Dose: 1 ea Ondansetron HCl (Zofran Tab) 4 mg PO Q6H PRN PRN Reason: Nausea/Vomiting Last Admin: 07/15/17 23:15 Dose: 4 mg Pantoprazole Sodium (Protonix Inj) 40 mg IVP Q12H [facility] Last Admin: 07/17/17 22:25 Dose: 40 mg Thiamine HCl (Vitamin B1 Inj) 100 mg IM BID [facility] - Labs Labs: 07/16/17 18:00 07/16/17 18:00 PT 13.2 Seconds (9.9-11.8) H 07/12/17 09:00 INR 1.22 (0.93-1.08) H 07/12/17 09:00 APTT 26.1 Seconds (23.7-30.8) 07/12/17 09:00 Attending/Attestation - Attestation I have personally seen and examined this patient.: Yes I have fully participated in the care of the patient.: Yes I have reviewed all pertinent clinical information, including history, physical exam and plan: Yes
[2017-07-17] MEDS: Potassium Chloride 20 MEQ in Sodium Chloride 0.45% 1,000 ML IV SCH (23:56)
--- NOTE | 2017-07-18 00:43 | CT ---
EXAM: CT Abdomen and Pelvis Without Intravenous Contrast CLINICAL HISTORY: 56 years old, male; Signs and symptoms; Bloating; Additional info: Oral constrast via ngtube/ abdominal distension TECHNIQUE: Axial computed tomography images of the abdomen and pelvis without intravenous contrast. All CT scans at this facility use one or more dose reduction techniques, viz.: automated exposure control; ma/kV adjustment per patient size (including targeted exams where dose is matched to indication; i.e. head); or iterative reconstruction technique. Coronal and sagittal reformatted images were created and reviewed. COMPARISON: CT - ABD PELVIS W/O PO OR IV CONT 07/13/2017 11:55:50 AM FINDINGS: Lower thorax: There are bilateral small pleural effusions partially imaged. Mild atelectasis in both bases, left greater than right. The heart is visualized appears mildly enlarged. No significant pericardial effusion. ABDOMEN: Liver: The liver is incompletely characterize without IV contrast. However, liver appears to demonstrate some ill-defined low-density lesions which do not make criteria for simple cysts and are therefore indeterminate. Metastatic disease cannot be excluded. Gallbladder and bile ducts: The gallbladder is normal. A CBD stent is present and there is some associated intrahepatic and extrahepatic pneumobilia. No calcified stones. No ductal dilation. Pancreas: The pancreas is atrophic and the pancreatic duct appears to be dilated. The possibility of underlying mass at the pancreatic head region cannot be excluded. Spleen: The spleen is normal. Adrenals: The adrenal glands are normal. Kidneys and ureters: The kidneys are normal. No obstructing stones. No hydronephrosis. Stomach and bowel: There is evidence of diffuse colonic wall thickening which appears most prominent at the proximal and mid colon. There is also wall thickening involving numerous loops of small bowel. It is unclear how much of this may relate to the underlying ascites versus intrinsic enterocolitis. Please correlate clinically and if indicated followup can be obtained. The stomach is normal. Colonic constipation is present. There is no evidence of intestinal obstruction. Appendix: No findings to suggest acute appendicitis. PELVIS: Bladder: Mendez catheter is present within the decompressed bladder. No stones. Reproductive: The prostate gland and seminal vesicles are normal. ABDOMEN and PELVIS: Intraperitoneal space: There is large abdominal pelvic ascites with associated scattered abdominal pelvic varices and associated anasarca. There is no free intraperitoneal air. Bones/joints: There are moderate degenerative changes present. No acute fracture. No dislocation. Soft tissues: See above. Vasculature: The aorta demonstrates mild atherosclerotic calcification. No abdominal aortic aneurysm. Lymph nodes: There is no evidence of lymphadenopathy. Tubes, lines and devices: Nasogastric tube terminates in the mid stomach. IMPRESSION: 1. There are bilateral small pleural effusions partially imaged. 2. The liver is incompletely characterize without IV contrast. However, liver appears to demonstrate some ill-defined low-density lesions which do not make criteria for simple cysts and are therefore indeterminate. Metastatic disease cannot be excluded. 3. The pancreas is atrophic and the pancreatic duct appears to be dilated. The possibility of underlying mass at the pancreatic head region cannot be excluded. 4. There is large abdominal pelvic ascites with associated scattered abdominal pelvic varices and associated anasarca. 5. There is evidence of diffuse colonic wall thickening which appears most prominent at the proximal and mid colon. There is also wall thickening involving numerous loops of small bowel. It is unclear how much of this may relate to the underlying ascites versus intrinsic enterocolitis. Please correlate clinically and if indicated followup can be obtained. 6. Additional incidental and/or chronic findings as described.
[2017-07-18] MEDS: PHENYTOIN IVPB SCH ×2 (05:21→19:22)
[2017-07-18] MEDS: SODIUM CHLORIDE 0.9% IVPB SCH ×2 (05:21→19:22)
[2017-07-18] MEDS: Piperacill/Tazo 4.5gm in NS 4.5 GM/100 ML BAG IVPB SCH ×3 (05:59→18:39)
[2017-07-18 07:49] LABS: ALB/GLOB RATIO 0.9 (1.1-1.8); ALKALINE PHOSPHATASE 1196 U/L (38-126); ALT/SGPT 37 U/L (7-56); AST/SGOT 63 U/L (17-59); BILIRUBIN,TOTAL 2.5 mg/dL (0.2-1.3); BLOOD UREA NITROGEN 7 mg/dL (7-21); CALCIUM 7.9 mg/dL (8.4-10.5); CARBON DIOXIDE 22 mmol/L (21-33); CHLORIDE 119 mmol/L (98-107); GFR AFRICAN-AMERICAN > 60; GLUCOSE,RANDOM 96 mg/dL (70-110); POTASSIUM 3.5 mmol/L (3.6-5.0); SODIUM 152 mmol/L (132-148); TOTAL PROTEIN 5.8 g/dL (5.8-8.3)
--- NOTE | 2017-07-18 08:20 | PN ---
SUBJECTIVE: The patient is 56-year-old male. The patient was seen and examined on the bedside, awake and alert, trying to do a little bit of conversation with me, just got Fleet enema, and discussion done with the nursing staff. Today, 2 times the patient pulled out NG tube and was replaced and having wrist restraints. For me, the patient looks awake and alert. We will remove NG tube and give the patient a trial of clear liquid and we will followup. PHYSICAL EXAMINATION VITAL SIGNS: Temperature 98.3, pulse 94, respiratory rate 20, blood pressure P/E awake . , chest cta , heart s1s2+ , abdomen distended , bs+ , ext no oedema , meds noted by , labs noted by me , A/p dementia . htn , pancreatic ca , wit mets , ams , anemia . cot. present treatment , repeat labs , will f/u Michelle Castillo MD MTDD
[2017-07-18] MEDS: Lidocaine 5% Patch TD SCH (10:32)
[2017-07-18] MEDS: Potassium Chloride 20 MEQ in Sodium Chloride 0.45% 1,000 ML IV SCH ×2 (10:33→19:49)
[2017-07-18] MEDS: Thiamine 100 mg/ml Inj IM SCH ×2 (10:34→18:22)
--- NOTE | 2017-07-18 11:07 | PN ---
DATE: 07/18/2017 SUBJECTIVE: The patient is in bed, in no acute distress, was seen earlier. PHYSICAL EXAMINATION VITAL SIGNS: Temperature of 98, blood pressure is 119/60, respiratory rate of 18, heart rate of 84. HEENT: Unremarkable. NECK: Supple. LUNGS: Decreased breath sounds. HEART EXAM: Normal S1, S2. ABDOMINAL EXAMINATION: Soft, nontender. LABORATORY EXAMINATION: Reveals a white count of 12,900; hemoglobin of 10. BUN of 7, creatinine of 0.7. The patient had procalcitonin of 1.09, this was on 07/12. Urinalysis is noted. Microbiology reveals the blood cultures are negative. Urine cultures are negative. MEDICATIONS: The patient is on Zosyn. ASSESSMENT AND PLAN: A 56-year-old male with systemic inflammatory response syndrome, must rule out spontaneous bacterial peritonitis, acute encephalopathy due to hepatic encephalopathy in a patient with pancreatic cancer with liver metastasis, on chemotherapy and radiation and hypertensive, diabetes, dementia, history of neurosyphilis, seizure disorder, asthma and schizophrenia and thus far on day #7 of Zosyn for possible spontaneous bacterial peritonitis and no peritoneal fluid evaluation available. Would discontinue antibiotics after 10 days, dose day #7. Mir Blanco MD
--- NOTE | 2017-07-18 13:58 | CP.PCM.PN ---
<Jorge Mckinley - Last Filed: 07/18/17 18:08> Subjective - Date & Time of Evaluation Date of Evaluation: 07/18/17 Time of Evaluation: 08:40 - Subjective Subjective: Neurology Progress Note for Dr. Gambino service Patient seen and examined at bedside. Overnight, NGT and restraints removed as per PMD, started on a clear liquid diet. This AM, no acute issues as per nursing; pt remains very lethargic. On exam, patient briefly arousable from rest with physical or loud verbal stimuli, but almost immediately returns to rest, despite repeat prompting. No following commands, not speaking. Ammonia level this AM 65 (was 110). Objective - Vital Signs/Intake and Output Vital Signs (last 24 hours): Temp Pulse Resp BP Pulse Ox 97.9 F 86 19 119/56 L 97 07/18/17 06:00 07/18/17 06:00 07/18/17 06:00 07/18/17 06:00 07/18/17 06:00 Intake and Output: 07/18/17 07/18/17 06:59 18:59 Intake Total 1470 Output Total 300 Balance 1170 - Medications Medications: Current Medications Donepezil HCl (Aricept) 10 mg PO HS [facility] Last Admin: 07/17/17 23:44 Dose: Not Given Piperacillin Sod/Tazobactam Sod (Zosyn 4.5 Gm In Ns 100ml) 4.5 gm in 100 mls @ 200 mls/hr IVPB Q6 [facility] PRN Reason: Protocol Stop: 07/18/17 18:01 Last Admin: 07/18/17 12:37 Dose: 200 mls/hr Phenytoin 150 mg/ Sodium (Chloride) 53 mls @ 104 mls/hr IVPB 0600,1800 [facility] Last Admin: 07/18/17 05:21 Dose: 104 mls/hr Potassium Chloride 20 meq/ (Sodium Chloride) 1,010 mls @ 100 mls/hr IV .Q10H6M [facility] Last Admin: 07/18/17 10:33 Dose: 100 mls/hr Lactulose (Enulose) 10 gm NG Q6 [facility] Last Admin: 07/18/17 12:35 Dose: Not Given Lidocaine (Lidoderm) 1 ea TD DAILY [facility] Last Admin: 07/18/17 10:32 Dose: Not Given Ondansetron HCl (Zofran Tab) 4 mg PO Q6H PRN PRN Reason: Nausea/Vomiting Last Admin: 07/15/17 23:15 Dose: 4 mg Pantoprazole Sodium (Protonix Inj) 40 mg IVP Q12H [facility] Last Admin: 07/18/17 10:33 Dose: 40 mg Thiamine HCl (Vitamin B1 Inj) 100 mg IM BID [facility] Last Admin: 07/18/17 10:34 Dose: 100 mg - Labs Labs: 07/16/17 18:00 07/18/17 07:32 PT 13.2 Seconds (9.9-11.8) H 07/12/17 09:00 INR 1.22 (0.93-1.08) H 07/12/17 09:00 APTT 26.1 Seconds (23.7-30.8) 07/12/17 09:00 - Additional Findings Additional findings: - Constitutional Appears: Other (Lethargic/Somnolent, minimally responsive) - Head Exam Head Exam: ATRAUMATIC, NORMAL INSPECTION, NORMOCEPHALIC - Eye Exam Eye Exam: PERRL, Scleral icterus (mild icterus bilaterally). absent: Conjunctival injection, EOMI (not following commands for EOMI testing, and rolls eyes upward when forcing open eyelids, actively attempts to avoid light challenge for PERRL assessment) Pupil Exam: NORMAL ACCOMODATION, PERRL. absent: Fixed, Irregular, Unequal - ENT Exam ENT Exam: Mucous Membranes Moist, Protecting airway - Neck Exam Neck Exam: absent: Lymphadenopathy, Thyromegaly - Respiratory Exam Respiratory Exam: Decreased Breath Sounds (mild in all gabriel) otherwise CTAB, NORMAL BREATHING PATTERN. absent: Accessory Muscle Use, Chest Wall Tenderness, Prolonged Expiratory Phase, Rales, Rhonchi, Wheezes, Respiratory Distress, Stridor - Cardiovascular Exam Cardiovascular Exam: RRR, REGULAR RHYTHM, +S1, +S2. absent: Tachycardia, Bradycardia, Irregular Rhythm, JVD, RRR, +S4 - GI/Abdominal Exam GI & Abdominal Exam: Distended (minor improvement prior exams), Firm, Diminished Bowel Sounds. absent: Rigid, Soft, Hyperactive Bowel Sounds, Hypoactive Bowel Sounds, Normal Bowel Sounds - Rectal Exam Rectal Exam: Deferred - Extremities Exam Extremities Exam: some spontaneous movement, some tone with position (can make small movements to arms and legs before he resists), reacts to noxious physical stimuli at extremities with movement/attempting to retract, +2 radial and +1 dorsalis pedis pulses. absent: Joint Swelling, Pedal Edema - Neurological Exam Additional comments: somnolent/lethargic, arousable but immediately returns to rest withdraws from painful stimuli Some spontaneous movements in all extremities, withdraws from painful stimuli, otherwise holding all extremities flaccidly GCS 9 (E3 V2 M4) - Psychiatric Exam Additional comments: difficult to assess due to minimally responsive/non-verbal state not following commands - Skin Skin Exam: Dry, Intact, Warm Assessment and Plan - Assessment and Plan (Free Text) Assessment: This is a 56 yo M with PMH of pancreatic Ca s/p chemo-rads, HTN, DM, dyslipidemia, neurosyphillus, seizures, asthma schizophrenia, and prior lacunar infarcts who presented initially to [facility] with complaint of weakness and altered mental status (sent from oncology clinic), and later developed worsening mental status and hematemesis. His altered mental status is likely due to toxic metabolic encephalopathy with an additional component of hepatic encephalopathy given his highly elevated ammonia, all in the setting of underlying pancreatic cancer. His elevated ammonia has persisted (ranging from 80's-110's) despite regular lactulose and rifaximin dosing. His obtunded/altered mental state will persist as long as his ammonia level remains elevated. Plan: 1) Continue dilantin for seizure ppx; continue IV formulation given persistent obtunded state 2) Avoid sedative medications 3) Thiamine 100mg BID for cognition 4) new set of blood culture due to his new leukocytosis were drawn, remain negative at 5 days 5) continue medical management as per primary team and GI Patient reviewed and discussed with attending, Dr. Gambino. <[place] - Last Filed: 07/19/17 11:11> Objective - Vital Signs/Intake and Output Vital Signs (last 24 hours): Temp Pulse Resp BP Pulse Ox 98.0 F 76 20 107/67 95 07/19/17 07:30 07/19/17 07:30 07/19/17 07:30 07/19/17 07:30 07/19/17 07:30 Intake and Output: 07/19/17 07/19/17 06:59 18:59 Intake Total 1200 Output Total 300 Balance 900 - Medications Medications: Current Medications Donepezil HCl (Aricept) 10 mg PO HS [facility] Last Admin: 07/18/17 21:23 Dose: Not Given Phenytoin 150 mg/ Sodium (Chloride) 53 mls @ 104 mls/hr IVPB 0600,1800 [facility] Last Admin: 07/19/17 06:31 Dose: 104 mls/hr Potassium Chloride 20 meq/ (Sodium Chloride) 1,010 mls @ 100 mls/hr IV .Q10H6M [facility] Last Admin: 07/19/17 06:31 Dose: 100 mls/hr Lactulose (Enulose) 10 gm NG Q6 [facility] Last Admin: 07/19/17 06:29 Dose: 10 gm Lidocaine (Lidoderm) 1 ea TD DAILY [facility] Last Admin: 07/19/17 10:43 Dose: 1 ea Ondansetron HCl (Zofran Tab) 4 mg PO Q6H PRN PRN Reason: Nausea/Vomiting Last Admin: 07/15/17 23:15 Dose: 4 mg Pantoprazole Sodium (Protonix Inj) 40 mg IVP Q12H [facility] Last Admin: 07/18/17 21:17 Dose: 40 mg Thiamine HCl (Vitamin B1 Inj) 100 mg IM BID [facility] Last Admin: 07/19/17 10:43 Dose: 100 mg - Labs Labs: 07/16/17 18:00 07/19/17 07:25 PT 13.2 Seconds (9.9-11.8) H 07/12/17 09:00 INR 1.22 (0.93-1.08) H 07/12/17 09:00 APTT 26.1 Seconds (23.7-30.8) 07/12/17 09:00 Attending/Attestation - Attestation I have personally seen and examined this patient.: Yes I have fully participated in the care of the patient.: Yes I have reviewed all pertinent clinical information, including history, physical exam and plan: Yes
--- NOTE | 2017-07-18 16:19 | CP.PCM.PN ---
<Vale Lo - Last Filed: 07/18/17 16:19> Subjective - Date & Time of Evaluation Date of Evaluation: 07/18/17 Time of Evaluation: 08:45 - Subjective Subjective: Seen and examined at the bedside earlier today. NG tube was DC'd earlier today, patient given enema and lactulose as ordered patient reported to have large BM. No reports of bleeding. Patient complains less lethargic but arousable. Patient had CT scan yesterday positive for ascites, intrinsic enterocolitis. No reports of fever, shortness of breath or chest pain. Objective - Vital Signs/Intake and Output Vital Signs (last 24 hours): Temp Pulse Resp BP Pulse Ox 97.9 F 86 19 119/56 L 97 07/18/17 06:00 07/18/17 06:00 07/18/17 06:00 07/18/17 06:00 07/18/17 06:00 Intake and Output: 07/18/17 07/18/17 06:59 18:59 Intake Total 1470 Output Total 300 Balance 1170 - Medications Medications: Current Medications Donepezil HCl (Aricept) 10 mg PO HS [facility] Last Admin: 07/17/17 23:44 Dose: Not Given Piperacillin Sod/Tazobactam Sod (Zosyn 4.5 Gm In Ns 100ml) 4.5 gm in 100 mls @ 200 mls/hr IVPB Q6 [facility] PRN Reason: Protocol Stop: 07/18/17 18:01 Last Admin: 07/18/17 12:37 Dose: 200 mls/hr Phenytoin 150 mg/ Sodium (Chloride) 53 mls @ 104 mls/hr IVPB 0600,1800 [facility] Last Admin: 07/18/17 05:21 Dose: 104 mls/hr Potassium Chloride 20 meq/ (Sodium Chloride) 1,010 mls @ 100 mls/hr IV .Q10H6M [facility] Last Admin: 07/18/17 10:33 Dose: 100 mls/hr Lactulose (Enulose) 10 gm NG Q6 [facility] Last Admin: 07/18/17 12:35 Dose: Not Given Lidocaine (Lidoderm) 1 ea TD DAILY [facility] Last Admin: 07/18/17 10:32 Dose: Not Given Ondansetron HCl (Zofran Tab) 4 mg PO Q6H PRN PRN Reason: Nausea/Vomiting Last Admin: 07/15/17 23:15 Dose: 4 mg Pantoprazole Sodium (Protonix Inj) 40 mg IVP Q12H [facility] Last Admin: 07/18/17 10:33 Dose: 40 mg Thiamine HCl (Vitamin B1 Inj) 100 mg IM BID [facility] Last Admin: 07/18/17 10:34 Dose: 100 mg - Labs Labs: 07/16/17 18:00 07/18/17 07:32 PT 13.2 Seconds (9.9-11.8) H 07/12/17 09:00 INR 1.22 (0.93-1.08) H 07/12/17 09:00 APTT 26.1 Seconds (23.7-30.8) 07/12/17 09:00 - Constitutional Appears: No Acute Distress - Eye Exam Eye Exam: Normal appearance. absent: Scleral icterus - ENT Exam ENT Exam: Mucous Membranes Moist - Neck Exam Neck Exam: Normal Inspection - Respiratory Exam Respiratory Exam: Decreased Breath Sounds, NORMAL BREATHING PATTERN. absent: Rales, Wheezes, Respiratory Distress - Cardiovascular Exam Cardiovascular Exam: +S1, +S2 - GI/Abdominal Exam GI & Abdominal Exam: Distended, Soft, Normal Bowel Sounds. absent: Guarding, Tenderness, Organomegaly, Rebound - Extremities Exam Extremities Exam: Normal Capillary Refill. absent: Calf Tenderness, Pedal Edema - Neurological Exam Neurological Exam: Altered - Skin Skin Exam: Dry, Warm Assessment and Plan - Assessment and Plan (Free Text) Assessment: ASSESSMENT: 56-year-old male with PMH Pancreatic Cancer w/ metastasis, superior mesenteric vein thrombus admitted for altered mental status Colonic thickening, enterocolitis Ascites Hepatic encephalopathy may be secondary to sepsis Fecal impaction /constipationstatus post manual disimpaction Sepsis, rule out cholangitis Hematemesis Elevated LFT, r/o stent obstruction, ct scan from 06/2017 films were reviewed w/ Dr. 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 difficile Seen and discussed w/ Dr. Guerrero. <Harjeet Guerrero V - Last Filed: 07/18/17 22:17> Objective - Vital Signs/Intake and Output Vital Signs (last 24 hours): Temp Pulse Resp BP Pulse Ox 97.4 F L 72 18 97/58 L 97 07/18/17 18:00 07/18/17 18:00 07/18/17 18:00 07/18/17 18:00 07/18/17 06:00 - Medications Medications: Current Medications Donepezil HCl (Aricept) 10 mg PO HS [facility] Last Admin: 07/18/17 21:23 Dose: Not Given Phenytoin 150 mg/ Sodium (Chloride) 53 mls @ 104 mls/hr IVPB 0600,1800 [facility] Last Admin: 07/18/17 19:22 Dose: 104 mls/hr Potassium Chloride 20 meq/ (Sodium Chloride) 1,010 mls @ 100 mls/hr IV .Q10H6M [facility] Last Admin: 07/18/17 19:49 Dose: 100 mls/hr Lactulose (Enulose) 10 gm NG Q6 [facility] Last Admin: 07/18/17 18:14 Dose: Not Given Lidocaine (Lidoderm) 1 ea TD DAILY [facility] Last Admin: 07/18/17 10:32 Dose: Not Given Ondansetron HCl (Zofran Tab) 4 mg PO Q6H PRN PRN Reason: Nausea/Vomiting Last Admin: 07/15/17 23:15 Dose: 4 mg Pantoprazole Sodium (Protonix Inj) 40 mg IVP Q12H [facility] Last Admin: 07/18/17 21:17 Dose: 40 mg Thiamine HCl (Vitamin B1 Inj) 100 mg IM BID [facility] Last Admin: 07/18/17 18:22 Dose: 100 mg - Labs Labs: 07/16/17 18:00 07/18/17 07:32 PT 13.2 Seconds (9.9-11.8) H 07/12/17 09:00 INR 1.22 (0.93-1.08) H 07/12/17 09:00 APTT 26.1 Seconds (23.7-30.8) 07/12/17 09:00 Attending/Attestation - Attestation I have personally seen and examined this patient.: Yes I have fully participated in the care of the patient.: Yes I have reviewed all pertinent clinical information, including history, physical exam and plan: Yes Notes (Text): this patient was seen and evaluated earlier. this is an addendum to the GI progress report dictated by Vale Lo APN Patient more alert and comfortable tolerating liquid diet abdomen softly distended with ascites Sodium is still remains elevated at 152. The IV fluid was changed to half normal fine last night. Would increase increased free water intake Follow-up office electrolytes in a.m. Would consider changing IV fluids again based on electrolytes. Follow-up with ammonia level would titrate the dose of the lactulose based on the bowel movements Continue Xifaxan 07/18/17 22:13
--- NOTE | 2017-07-19 04:05 | PN ---
The patient is a 56 years old male. SUBJECTIVE: The patient was seen and examined on bedside, looking comfortable, more arousable and awake. NG tube is out. Lactulose and enema given, had good bowel movement. No shortness of breath. No nausea or vomiting. No headache. No dizziness. PHYSICAL EXAMINATION: VITAL SIGNS: Temperature 97.9, pulse 86, respiratory rate 19, blood pressure 119/56, pulse oximetry 97%. HEENT: Head, normocephalic and atraumatic. Eyes, PERRLA. Extraocular muscles intact. Conjunctivae clear. Nose patent. Mucous membrane moist. NECK: Supple. No carotid bruits, JVD or thyromegaly. CHEST: Bilaterally symmetrical. HEART: S1, S2 positive. LUNGS: Clear to auscultation. ABDOMEN: Soft. Bowel sounds positive. No organomegaly. EXTREMITIES: No edema. No cyanosis. NEUROLOGIC: The patient is awake, alert. Moving all 4 extremities. No focal deficits. MEDICATIONS: Aricept, Zosyn, Dilantin, potassium, lactulose, Lidoderm, Zofran, Protonix and thiamine. LABORATORY DATA: Sodium 152, potassium 3.5, BUN 7, creatinine 0.4, glucose 96. ASSESSMENT: The patient is a 56-year-old male with past medical history of pancreatic cancer with metastasis; mesenteric vein thrombus; altered mental status; neurosyphilis; dementia; chronic thickening; enterocolitis; ascites; hepatic encephalopathy, maybe secondary to sepsis; fecal impaction, constipation, post manual disimpaction and now getting enema; sepsis, rule out cholangitis; hematemesis; elevated liver function test, rule out stent obstruction. CAT scan from 06/2017 reviewed; as per GI, the common bile duct stent appears patent, distally appears likely gravel versus tumor formation; schizophrenia. PLAN: Continue PPI. Start clear liquid diet. Aspiration precautions. IV antibiotics. Liver function is trending down ammonia level. Discussion with nursing staff. We will follow up. Michelle Castillo MD [place]
[2017-07-19] MEDS: SODIUM CHLORIDE 0.9% IVPB SCH ×3 (06:31→20:01)
[2017-07-19] MEDS: PHENYTOIN IVPB SCH ×3 (06:31→20:01)
[2017-07-19] MEDS: Potassium Chloride 20 MEQ in Sodium Chloride 0.45% 1,000 ML IV SCH ×2 (06:31→17:23)
[2017-07-19 07:54] LABS: ALB/GLOB RATIO 0.9 (1.1-1.8); ALKALINE PHOSPHATASE 1193 U/L (38-126); ALT/SGPT 41 U/L (7-56); AST/SGOT 65 U/L (17-59); BILIRUBIN,TOTAL 2.9 mg/dL (0.2-1.3); BLOOD UREA NITROGEN 6 mg/dL (7-21); CALCIUM 8.1 mg/dL (8.4-10.5); CARBON DIOXIDE 25 mmol/L (21-33); CHLORIDE 117 mmol/L (98-107); GFR AFRICAN-AMERICAN > 60; GLUCOSE,RANDOM 92 mg/dL (70-110); MAGNESIUM 1.8 mg/dL (1.7-2.2); POTASSIUM 3.5 mmol/L (3.6-5.0); SODIUM 151 mmol/L (132-148); TOTAL PROTEIN 5.6 g/dL (5.8-8.3)
[2017-07-19] MEDS: Thiamine 100 mg/ml Inj IM SCH ×2 (10:43→18:31)
[2017-07-19] MEDS: Lidocaine 5% Patch TD SCH (10:43)
[2017-07-19] MEDS ORDERED: Potassium Chloride 20 mEq ER Tab PO ONE (11:53)
--- NOTE | 2017-07-19 13:58 | CP.PCM.PN ---
<Vale Lo - Last Filed: 07/19/17 13:58> Subjective - Date & Time of Evaluation Date of Evaluation: 07/19/17 Time of Evaluation: 10:20 - Subjective Subjective: S&E earlier today, chart reviewed. Patient is awake at times, easily arousable. Have abdominal pain, No N/V. Having BM, no bleeding. Objective - Vital Signs/Intake and Output Vital Signs (last 24 hours): Temp Pulse Resp BP Pulse Ox 98.0 F 76 20 107/67 95 07/19/17 07:30 07/19/17 07:30 07/19/17 07:30 07/19/17 07:30 07/19/17 07:30 Intake and Output: 07/19/17 07/19/17 06:59 18:59 Intake Total 1200 Output Total 300 Balance 900 - Medications Medications: Current Medications Donepezil HCl (Aricept) 10 mg PO HS [facility] Last Admin: 07/18/17 21:23 Dose: Not Given Phenytoin 150 mg/ Sodium (Chloride) 53 mls @ 104 mls/hr IVPB 0600,1800 [facility] Last Admin: 07/19/17 06:31 Dose: 104 mls/hr Potassium Chloride 20 meq/ (Sodium Chloride) 1,010 mls @ 100 mls/hr IV .Q10H6M [facility] Last Admin: 07/19/17 06:31 Dose: 100 mls/hr Lactulose (Enulose) 10 gm NG Q6 [facility] Last Admin: 07/19/17 13:02 Dose: 10 gm Lidocaine (Lidoderm) 1 ea TD DAILY [facility] Last Admin: 07/19/17 10:43 Dose: 1 ea Metronidazole (Flagyl) 250 mg PO QID [facility] PRN Reason: Protocol Last Admin: 07/19/17 13:28 Dose: 250 mg Ondansetron HCl (Zofran Tab) 4 mg PO Q6H PRN PRN Reason: Nausea/Vomiting Last Admin: 07/15/17 23:15 Dose: 4 mg Pantoprazole Sodium (Protonix Inj) 40 mg IVP Q12H [facility] Last Admin: 07/19/17 12:09 Dose: 40 mg Thiamine HCl (Vitamin B1 Inj) 100 mg IM BID [facility] Last Admin: 07/19/17 10:43 Dose: 100 mg - Labs Labs: 07/16/17 18:00 07/19/17 07:25 PT 13.2 Seconds (9.9-11.8) H 07/12/17 09:00 INR 1.22 (0.93-1.08) H 07/12/17 09:00 APTT 26.1 Seconds (23.7-30.8) 07/12/17 09:00 - Constitutional Appears: No Acute Distress - Eye Exam Eye Exam: Normal appearance. absent: Scleral icterus - ENT Exam ENT Exam: Mucous Membranes Moist - Neck Exam Neck Exam: Normal Inspection - Respiratory Exam Respiratory Exam: NORMAL BREATHING PATTERN. absent: Respiratory Distress - Cardiovascular Exam Cardiovascular Exam: +S1, +S2 - GI/Abdominal Exam GI & Abdominal Exam: Distended, Soft, Tenderness, Normal Bowel Sounds. absent: Guarding, Rebound - Extremities Exam Extremities Exam: Normal Capillary Refill. absent: Calf Tenderness, Pedal Edema - Neurological Exam Neurological Exam: Awake - Skin Skin Exam: Dry, Warm Assessment and Plan - Assessment and Plan (Free Text) Assessment: ASSESSMENT: 56-year-old male with PMH Pancreatic Cancer w/ metastasis, superior mesenteric vein thrombus admitted for altered mental status Colonic thickening, enterocolitis Ascites Hepatic encephalopathy may be secondary to sepsis Fecal impaction /constipationstatus post manual disimpaction Sepsis, rule out cholangitis Hematemesis Elevated LFT, r/o stent obstruction, ct scan from 06/2017 films were reviewed w/ Dr. 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 difficile start on Flagyl 250 mg po QID Seen and discussed w/ Dr. Guerrero. <Harjeet Guerrero V - Last Filed: 07/19/17 23:40> Objective - Vital Signs/Intake and Output Vital Signs (last 24 hours): Temp Pulse Resp BP Pulse Ox 98.0 F 76 20 107/67 95 07/19/17 07:30 07/19/17 07:30 07/19/17 07:30 07/19/17 07:30 07/19/17 07:30 Intake and Output: 07/19/17 07/20/17 18:59 06:59 Intake Total 1560 360 Output Total 500 150 Balance 1060 210 - Medications Medications: Current Medications Donepezil HCl (Aricept) 10 mg PO HS [facility] Last Admin: 07/19/17 21:53 Dose: 10 mg Phenytoin 150 mg/ Sodium (Chloride) 53 mls @ 104 mls/hr IVPB 0600,1800 [facility] Last Admin: 07/19/17 20:01 Dose: Not Given Piperacillin Sod/Tazobactam Sod (Zosyn 3.375 In Ns 100ml) 100 mls @ 200 mls/hr IVPB Q6 [facility] PRN Reason: Protocol Stop: 07/22/17 18:01 Last Admin: 07/19/17 18:32 Dose: 200 mls/hr Sodium Chloride (Sodium Chloride 0.45%) 1,000 mls @ 200 mls/hr IV .Q5H [facility] Lactulose (Enulose) 10 gm NG DAILY [facility] Lidocaine (Lidoderm) 1 ea TD DAILY [facility] Last Admin: 07/19/17 10:43 Dose: 1 ea Metronidazole (Flagyl) 250 mg PO QID [facility] PRN Reason: Protocol Last Admin: 07/19/17 21:53 Dose: 250 mg Ondansetron HCl (Zofran Tab) 4 mg PO Q6H PRN PRN Reason: Nausea/Vomiting Last Admin: 07/15/17 23:15 Dose: 4 mg Pantoprazole Sodium (Protonix Inj) 40 mg IVP Q12H [facility] Last Admin: 07/19/17 21:54 Dose: 40 mg Phenytoin (Dilantin) 150 mg PO Q12 [facility] Last Admin: 07/19/17 21:53 Dose: 150 mg Rifaximin (Xifaxan) 550 mg PO BID [facility] PRN Reason: Protocol Last Admin: 07/19/17 18:31 Dose: 550 mg Thiamine HCl (Vitamin B1 Inj) 100 mg IM BID [facility] Last Admin: 07/19/17 18:31 Dose: 100 mg - Labs Labs: 07/16/17 18:00 07/19/17 07:25 PT 13.2 Seconds (9.9-11.8) H 07/12/17 09:00 INR 1.22 (0.93-1.08) H 07/12/17 09:00 APTT 26.1 Seconds (23.7-30.8) 07/12/17 09:00 Attending/Attestation - Attestation Notes (Text): This patient was seen and evaluated here earlier. This is an addendum to the GE progress report dictated by Vale Lo APN Consent by the nursing staff was the urine output. Patient has several episodes of loose bowel movements. Finally a [facility] level has come down. Status post fecal impaction Sepsis Rule out cholangitis Hepatic encephalopathy Metastatic pancreas cancer status post Metal stent placement Would recommend 1 follow-up of LFTs 2. Continue Flagyl 3. Reduce his lactulose to once daily 4. Would start the patient on rifaximin 5. Patient's sodium level still remains high in view of the diarrhea on lactulose. We'll increase the IV fluids 240 cc per hour Follow-up nephrology evaluation Consider ERCP to clear out the distal CBD stent 07/19/17 23:36
[2017-07-19] MEDS ORDERED: Potassium Chloride 20 MEQ in Sodium Chloride 0.45% 1,000 ML IV SCH (18:21)
[2017-07-19] MEDS: Piperacillin/Tazobact 3.375 gm 100 ML IVPB SCH (18:32)
--- NOTE | 2017-07-19 19:26 | CP.PCM.PN ---
Subjective - Date & Time of Evaluation Date of Evaluation: 07/19/17 Time of Evaluation: 18:45 - Subjective Subjective: Comfortable, no fevers. Objective - Vital Signs/Intake and Output Vital Signs (last 24 hours): Temp Pulse Resp BP Pulse Ox 98.0 F 76 20 107/67 95 07/19/17 07:30 07/19/17 07:30 07/19/17 07:30 07/19/17 07:30 07/19/17 07:30 Intake and Output: 07/19/17 07/19/17 06:59 18:59 Intake Total 1200 Output Total 300 Balance 900 - Medications Medications: Current Medications Donepezil HCl (Aricept) 10 mg PO HS [facility] Last Admin: 07/18/17 21:23 Dose: Not Given Phenytoin 150 mg/ Sodium (Chloride) 53 mls @ 104 mls/hr IVPB 0600,1800 [facility] Last Admin: 07/19/17 06:31 Dose: 104 mls/hr Potassium Chloride 20 meq/ (Sodium Chloride) 1,010 mls @ 100 mls/hr IV .Q10H6M [facility] Last Admin: 07/19/17 06:31 Dose: 100 mls/hr Lactulose (Enulose) 10 gm NG Q6 [facility] Last Admin: 07/19/17 13:02 Dose: 10 gm Lidocaine (Lidoderm) 1 ea TD DAILY [facility] Last Admin: 07/19/17 10:43 Dose: 1 ea Metronidazole (Flagyl) 250 mg PO QID [facility] PRN Reason: Protocol Last Admin: 07/19/17 13:28 Dose: 250 mg Ondansetron HCl (Zofran Tab) 4 mg PO Q6H PRN PRN Reason: Nausea/Vomiting Last Admin: 07/15/17 23:15 Dose: 4 mg Pantoprazole Sodium (Protonix Inj) 40 mg IVP Q12H [facility] Last Admin: 07/19/17 12:09 Dose: 40 mg Thiamine HCl (Vitamin B1 Inj) 100 mg IM BID [facility] Last Admin: 07/19/17 10:43 Dose: 100 mg - Labs Labs: 07/16/17 18:00 07/19/17 07:25 PT 13.2 Seconds (9.9-11.8) H 07/12/17 09:00 INR 1.22 (0.93-1.08) H 07/12/17 09:00 APTT 26.1 Seconds (23.7-30.8) 07/12/17 09:00 - Constitutional Appears: Non-toxic, No Acute Distress - Head Exam Head Exam: NORMAL INSPECTION - ENT Exam ENT Exam: Mucous Membranes Moist - Neck Exam Neck Exam: absent: Meningismus - Respiratory Exam Respiratory Exam: Decreased Breath Sounds - Cardiovascular Exam Cardiovascular Exam: +S1, +S2 - GI/Abdominal Exam GI & Abdominal Exam: Distended, Soft. absent: Guarding, Rigid, Tenderness, Rebound Assessment and Plan - Assessment and Plan (Free Text) Plan: Assessment Systemic Inflammatory Response Syndrome, R/O sepsis from spontaneous bacterial peritonitis acute encephalopathy probably due to hepatic encephalopathy pancreatic cancer with liver metastases S/P chemotherapy and radiation HTN DM dementia history of neurosyphilis seizure disorder asthma schizophrenia Plan blood and urine cx are negative; CXR only showed atelectasis; CT scan of the abdomen and pelvis did not show acute pathology except for ascites will continue Zosyn (day 7) for possible SBP to complete 7-10 days of therapy continue treatment for hepatic encephalopathy (ie. lactulose and Rifaximin); GI is following will continue to follow clinically Overall prognosis is poor
--- NOTE | 2017-07-19 21:23 | CT ---
EXAM: CT Abdomen and Pelvis Without Intravenous Contrast CLINICAL HISTORY: 56 years old, male; Device placement; Urinary device; Other: Niño cath placement; Additional info: Verify niño catheter placement TECHNIQUE: Axial computed tomography images of the abdomen and pelvis without intravenous contrast. All CT scans at this facility use one or more dose reduction techniques, viz.: automated exposure control; ma/kV adjustment per patient size (including targeted exams where dose is matched to indication; i.e. head); or iterative reconstruction technique. Coronal and sagittal reformatted images were created and reviewed. COMPARISON: CT - ABD PELVIS PO CONTRAST ONLY 07/17/2017 6:40:17 PM FINDINGS: Limitations: Lack of intravenous contrast. Motion artifact - mild. Lower thorax: Mild cardiomegaly. Minimal atelectasis/scarring. RIGHT middle lobe calcified granuloma. Trace to small bilateral pleural effusions. ABDOMEN: Liver: Lobulated contour. Multiple subcentimeter hypodensities throughout liver. Gallbladder and bile ducts: Air within biliary tree. Biliary stent. Air and soft tissue density within stent, similar to previous examination. Pancreas: Atrophy of pancreas. No ductal dilation. Spleen: No splenomegaly. Adrenals: No mass. Kidneys and ureters: No renal calculi. No hydronephrosis. Stomach and bowel: Apparent mild thickening of few loops of small bowel. Apparent segmental areas of mild to moderate mural thickening of large bowel. No obstruction. Residual barium within RIGHT colon. Appendix: No findings to suggest acute appendicitis. PELVIS: Bladder: Niño catheter within collapsed bladder. No stones. Reproductive: Unremarkable as visualized. ABDOMEN and PELVIS: Intraperitoneal space: Moderate to large free fluid within abdomen and pelvis. No free air. Bones/joints: Mild degenerative changes of spine. No acute fracture. Soft tissues: [id number] stranding within subcutaneous tissues. Vasculature: Mild atherosclerotic disease. No aneurysm. Lymph nodes: No pathologically enlarged lymph nodes. IMPRESSION: 1. Niño catheter within bladder. 2. Cirrhosis. Multiple hypodensities within liver, indeterminate. Malignancy/metastases not excluded. Recommend MRI. 3. Moderate to large ascites. 4. Apparent enteritis/colitis, nonspecific. Clinical correlation is needed. 5. Incidental/non-acute findings are described above.
[2017-07-19] MEDS ORDERED: Sodium Chloride 0.45% 1,000 ML IV SCH (21:45)
[2017-07-19 22:25] LABS: PH,URINE 5.5 (4.7-8.0); URINE APPEARANCE TURBID (CLEAR); URINE BILIRUBIN LARGE (NEGATIVE); URINE BLOOD LARGE (NEGATIVE); URINE COLOR BROWN (YELLOW); URINE GLUCOSE (UA) NEGATIVE (NEGATIVE); URINE KETONE 40 mg/dL (NEGATIVE); URINE LEUKOCYTE ESTERASE TRACE Leu/uL (NEGATIVE); URINE PROTEIN 100 mg/dL (<30 mg/dL)
[2017-07-19 22:31] LABS: URINE RBC TNTC /hpf (0-2)
[2017-07-20] MEDS: Piperacillin/Tazobact 3.375 gm 100 ML IVPB SCH ×4 (01:27→18:07)
--- NOTE | 2017-07-20 01:57 | PN ---
DATE: 07/19/2017 This is John Saha's hospital visit on the medical floor. For Dr. Finch. SUBJECTIVE: The patient is a 56-year-old male now seen sitting up in bed interacting appropriately, denying any pain, and appearing in no acute distress on the med/surg floor after being hospitalized in the intensive care unit for lactic acidosis with hepatic encephalopathy possibly secondary to spontaneous bacterial peritonitis with the patient now significantly more animated and appearing in no acute distress than when seen in the intensive care unit earlier in his hospital stay. His NG tube is no longer noted and the patient is interacting appropriately with answering questions. OBJECTIVE: VITAL SIGNS: Temperature 98, pulse 76, respirations 20, blood pressure 107/67, and pulse ox 95%. HEENT: Unremarkable. NECK: Supple. HEART: Regular rate. LUNGS: Clear. ABDOMEN: Protuberant, distended, but nontender. EXTREMITIES: No edema. SKIN: Warm, dry, and clear. NEUROLOGIC: He is awake and alert. LABORATORY DATA: The patient's labs were done, white blood cell count 3 days prior was 12.9. We will repeat his labs in the morning. His chem metabolic panel done today showed a sodium of 151, potassium of 3.5, chloride of 117, calcium of 8.1, total bilirubin of 2.9, alkaline phosphatase of 1193, ammonia level of 29 down from 65 yesterday. The patient did have a CT scan of his abdomen and pelvis done earlier today. It was read as Mendez catheter in the bladder, cirrhosis, multiple hypodensities in liver indeterminate, malignancy metastases not excluded, recommend MRI, moderate to large ascites, apparent enteritis, colitis nonspecific, incidental non-acute findings, bilateral pleural effusions. ASSESSMENT: For this patient is that of systemic inflammatory response syndrome, probable sepsis from spontaneous bacterial peritonitis, acute encephalopathy possibly secondary to hepatic encephalopathy, resolving, history of pancreatic carcinoma with liver metastases status post radiation and chemotherapy, dementia, hypertension, diabetes, history of neurosyphilis, seizure disorder, schizophrenia. PLAN: For this patient is to repeat his labs in the morning, electrolyte imbalances to be corrected as per renal rewards consultant's recommendations with his CBC to be done. The prognosis for this patient is guarded. Wild Santillan MD
[2017-07-20] MEDS: Pantoprazole 40 mg EC Tab PO SCH ×2 (06:18→17:32)
[2017-07-20 07:17] LABS: BASO # 0.02 K/mm3 (0.0-2.0); BASO % 0.2 % (0.0-3.0); EOS # 0.1 (0.0-0.7); EOS % 1.1 % (1.5-5.0); GRAN # 10.88 (1.4-6.5); GRAN % 88.3 % (50.0-68.0); HEMATOCRIT 30.7 % (42.0-52.0); LYMPH # 0.5 (1.2-3.4); LYMPH % 3.9 % (22.0-35.0); MEAN CELL VOLUME 89.8 fl (80.0-105.0); MEAN CORPUSCULAR HEMOGLOBIN 27.8 pg (25.0-35.0); MEAN CORPUSCULAR HGB CONC 30.9 g/dl (31.0-37.0); MEAN PLATELET VOLUME 9.5 fl (7.0-11.0); MONO # 0.8 (0.1-0.6); MONO % 6.5 % (1.0-6.0); PLATELET COUNT 257 10^3/uL (120.0-450.0); RED CELL DISTRIBUTION WIDTH 21.2 % (11.5-14.5); WHITE BLOOD COUNT 12.3 10^3/ul (4.5-11.0)
[2017-07-20 07:27] LABS: ALB/GLOB RATIO 0.9 (1.1-1.8); ALKALINE PHOSPHATASE 1152 U/L (38-126); ALT/SGPT 41 U/L (7-56); AST/SGOT 62 U/L (17-59); BILIRUBIN,TOTAL 3.4 mg/dL (0.2-1.3); BLOOD UREA NITROGEN 7 mg/dL (7-21); CALCIUM 7.8 mg/dL (8.4-10.5); CARBON DIOXIDE 24 mmol/L (21-33); CHLORIDE 110 mmol/L (98-107); GFR AFRICAN-AMERICAN > 60; GLUCOSE,RANDOM 120 mg/dL (70-110); POTASSIUM 3.4 mmol/L (3.6-5.0); SODIUM 142 mmol/L (132-148); TOTAL PROTEIN 5.6 g/dL (5.8-8.3)
--- NOTE | 2017-07-20 08:28 | CON ---
NEPHROLOGY CONSULTATION DATE: 07/19/2017 HISTORY OF PRESENT ILLNESS: This is a 56-year-old male with past medical history of pancreatic cancer, status post chemo and radiation presented from oncology clinic last week due to altered mental status. The patient had been residing at nursing facility and was reportedly not acting like his usual self; the patient was noted to initially have leukocytosis with mildly elevated lactate level, was admitted as a case of SIRS/sepsis; the patient was quickly upgraded to ICU the following day due to worsening somnolence in the setting of hyperammonemia. The patient was placed on Zosyn for possible SBP, was placed on lactulose and rifaximin for hepatic encephalopathy. GI has been evaluating the patient particularly due to present of CBD stent; some sludge was thought to be present at end of common bile duct; alk phos has been significantly elevated; CAT scan was done 2 days ago, which showed ascites and enterocolitis. The patient yesterday was noted to have decreased urine output; today again urine output noted to be decreased and therefore urology was consulted; urology replaced Mendez catheter and confirm placement with abdominal CT; nephrology service being consulted for possible ANA MARIA. The patient is a very poor historian and unable to get any significant information from him. PAST MEDICAL HISTORY: As above. The patient also with CBD stent; mesenteric vein thrombosis; hypertension, diabetes, neurosyphilis, bipolar disorder, schizophrenia, seizure disorder, asthma, and obstructive jaundice. FAMILY HISTORY: Unable to obtain. SOCIAL HISTORY: Unable to obtain. REVIEW OF SYSTEMS: The patient appears confused, not able to give significant information. He is complaining about right lower leg pain. PHYSICAL EXAMINATION: VITAL SIGNS: This morning; blood pressure 107/67, heart rate 76, respirations are 20, temperature 98.0, and O2 sat 95% on room air. GENERAL: No distress. Lying comfortably in bed. Watching TV. HEENT: Moist mucous membranes. Mildly icteric. RESPIRATORY: Lungs with mild right basilar rales, otherwise clear to auscultation. HEART: S1 and S2 normal. No murmurs. No gallops. No rubs. ABDOMEN: Markedly distended and nontender. Positive fluid thrill. GENITOURINARY: Unable to assess bladder distention due to abdominal distention. Mendez in place. SKIN: Warm. No cyanosis. NEUROLOGIC: Oriented only to name, not to date or place. PSYCHIATRIC: Appears confused, but not agitated. EXTREMITIES: Mild leg edema. LABORATORY DATA: CBC from 3 days ago; WBC 12.9, hemoglobin 10.3, hematocrit 33.9, and platelets 503. Chemistry panel; sodium 151, potassium 3.5, chloride 117, bicarb 25, BUN 6, and creatinine of 0.4. Glucose 82, calcium 8.1, magnesium 1.8, total bilirubin 2.9, AST 65, ALT 41, alk phos 1193, ammonia 29 decreased from 65 yesterday, and albumin 2.5. ASSESSMENT AND PLAN: 1. Acute kidney injury based on decreased urine output, although not yet reflected in serum creatinine; no evidence of hydronephrosis on CAT scan; Mendez was replaced and confirmed on CT; blood pressure has been at lower end was normal and with the patient having copious stool output in the setting of getting lactulose for hepatic encephalopathy; likely some element of volume depletion. Checking urine lytes with urine sodium and creatinine. Increasing IV fluids to half NS at 200 mL per hour. We will discuss CT findings with urology for any possible extrinsic compression involving kidneys. 2. Hypernatremia more than 3.5 L free water deficit with ongoing stool losses; increasing IV fluids as noted above. 3. Hypokalemia relatively mild with the patient not having needed high amounts of potassium replenishment; continue to monitor replenished p.r.n. 4. Systemic inflammatory response syndrome/sepsis. The patient currently on Zosyn 3.375 g q.6 hours and Flagyl; no need for renal dose reduction at this time. 5. . Som Garces MD
[2017-07-20] MEDS ORDERED: Potassium Chloride 40 mEq/30 ml LIQ UD PO ONE (09:20)
--- NOTE | 2017-07-20 09:30 | PN ---
SUBJECTIVE: The patient is a 56 years old male. The patient is seen and examined at the bedside, looking little bit more awake and alert. No nausea or vomiting. Seen by GI, Dr. Guerrero. No hematuria, no hematochezia. Nursing found that he did not pass any urine. We will call consult with Dr. Fern Mehta. We increased the IV fluid and could consult with the cloth shearing supervisor. PHYSICAL EXAMINATION VITAL SIGNS: Temperature 98.0, pulse 76, respiratory rate 20, blood pressure 107/67, pulse oximetry 95%. HEENT: Head is normocephalic and atraumatic. Eyes, PERRLA. Extraocular muscles intact. Conjunctivae clear. Nose patent. NECK: Supple. No carotid bruits, JVD, or thyromegaly. CHEST: Bilaterally symmetrical. HEART: S1, S2 positive. LUNGS: Clear to auscultation. ABDOMEN: Soft. Bowel sounds positive. No organomegaly. EXTREMITIES: No edema. No cyanosis. NEUROLOGIC: The patient is awake, alert. Moving all 4 extremities. MEDICATIONS: Dilantin, NS, lactulose, Lidoderm, Flagyl, Zofran, Protonix, LABORATORY DATA: White blood cells 12.9, hemoglobin 10.3, hematocrit 33.9, platelets 506. Sodium 151, potassium 3.5, BUN 6, creatinine 0.4. ASSESSMENT AND PLAN: The patient is a 56 years old male with leukocytosis, anemia, thrombocytosis, hypernatremia, hypokalemia, has systemic inflammatory response syndrome, sepsis from spontaneous bacterial peritonitis, acute encephalopathy maybe due to hepatic encephalopathy, pancreatic cancer with liver metastasis, status post chemotherapy and radiation therapy, hypertension, dementia, neurosyphilis, seizure, asthma, and schizophrenia. CAT of the abdomen and pelvis done. Not sure of acute pathology except for ascites. Continue Zosyn day #7. Continue treatment for hepatic encephalopathy, lactulose, rifaximin. ID is on the case, GI is on the case. Reviewed CAT scan of abdomen and pelvis. Discussion done with Dr. Guerrero. We will follow up. Michelle Castillo MD [facility] # [id number] MTDSean
[2017-07-20] MEDS: Thiamine 100 mg/ml Inj IM SCH ×2 (10:24→18:07)
[2017-07-20] MEDS: Sodium Chloride 0.45% 1,000 ML IV SCH ×2 (10:26→21:20)
[2017-07-20] MEDS: Lidocaine 5% Patch TD SCH (10:29)
[2017-07-20 11:20] LABS: BAND 4 % (0-2); EOSINOPHIL 2 % (0.0-3.0); NEUTROPHIL 87 % (50.0-70.0)
[2017-07-20 11:21] LABS: ANISOCYTOSIS SLIGHT; HYPOCHROMIA SLIGHT; PLATELET ESTIMATE NORMAL (NORMAL); TEAR DROP CELLS SLIGHT
[2017-07-20] MEDS: Albumin Human 25% (12.5 gm/50 ml) IV SCH (12:26)
--- NOTE | 2017-07-20 16:02 | CP.PCM.PN ---
<Vale Lo - Last Filed: 07/20/17 16:01> Subjective - Date & Time of Evaluation Date of Evaluation: 07/20/17 Time of Evaluation: 10:45 - Subjective Subjective: seen and examined at the bedside earlier today, the chart was reviewed. Patient reported to have mucousy stool and blood noted. Patient also with increasing abdominal distention. Reported to tolerate solid breakfast. Patient is awake alert. Patient was giving thumbs up. After visit patient was reported to have projectile vomiting of bilious fluid with food after oral medication. No reports of hematemesis. Objective - Vital Signs/Intake and Output Vital Signs (last 24 hours): Temp Pulse Resp BP Pulse Ox 97 F L 78 20 106/68 95 07/20/17 08:30 07/20/17 08:30 07/20/17 08:30 07/20/17 08:30 07/20/17 08:30 Intake and Output: 07/20/17 07/20/17 06:59 18:59 Intake Total 3380 Output Total 250 Balance 3130 - Medications Medications: Current Medications Albumin Human (Albumin Human 25% (12.5 Gm/50 Ml)) 12.5 gm IV Q12H AVA Stop: 07/22/17 12:01 Last Admin: 07/20/17 12:26 Dose: 12.5 gm Donepezil HCl (Aricept) 10 mg PO HS AVA Last Admin: 07/19/17 21:53 Dose: 10 mg Phenytoin 150 mg/ Sodium (Chloride) 53 mls @ 104 mls/hr IVPB 0600,1800 AVA Last Admin: 07/19/17 20:01 Dose: Not Given Piperacillin Sod/Tazobactam Sod (Zosyn 3.375 In Ns 100ml) 100 mls @ 200 mls/hr IVPB Q6 AVA PRN Reason: Protocol Stop: 07/22/17 18:01 Last Admin: 07/20/17 11:08 Dose: 200 mls/hr Sodium Chloride (Sodium Chloride 0.45%) 1,000 mls @ 100 mls/hr IV .Q10H AVA Last Admin: 07/20/17 10:26 Dose: 100 mls/hr Potassium Chloride (Potassium Chloride 20 Meq/100 Ml) 20 meq in 100 mls @ 50 mls/hr IVPB Q2H AVA Stop: 07/20/17 16:29 Last Admin: 07/20/17 14:47 Dose: 50 mls/hr Lactulose (Enulose) 10 gm NG DAILY [facility] Last Admin: 07/20/17 11:34 Dose: Not Given Lidocaine (Lidoderm) 1 ea TD DAILY [facility] Last Admin: 07/20/17 10:29 Dose: 1 ea Metronidazole (Flagyl) 250 mg PO QID [facility] PRN Reason: Protocol Last Admin: 07/20/17 14:54 Dose: Not Given Ondansetron HCl (Zofran Inj) 4 mg IVP Q6H PRN PRN Reason: Nausea/Vomiting Last Admin: 07/20/17 10:50 Dose: 4 mg Pantoprazole Sodium (Protonix Ec Tab) 40 mg PO 0600,1600 [facility] Last Admin: 07/20/17 06:18 Dose: 40 mg Rifaximin (Xifaxan) 550 mg PO BID [facility] PRN Reason: Protocol Last Admin: 07/20/17 11:35 Dose: Not Given Thiamine HCl (Vitamin B1 Inj) 100 mg IM BID [facility] Last Admin: 07/20/17 10:24 Dose: 100 mg - Labs Labs: 07/20/17 06:45 07/20/17 06:45 PT 13.2 Seconds (9.9-11.8) H 07/12/17 09:00 INR 1.22 (0.93-1.08) H 07/12/17 09:00 APTT 26.1 Seconds (23.7-30.8) 07/12/17 09:00 - Constitutional Appears: No Acute Distress - Head Exam Head Exam: NORMOCEPHALIC - Eye Exam Eye Exam: Scleral icterus - ENT Exam ENT Exam: Mucous Membranes Moist - Neck Exam Neck Exam: Normal Inspection - Respiratory Exam Respiratory Exam: NORMAL BREATHING PATTERN. absent: Respiratory Distress - Cardiovascular Exam Cardiovascular Exam: +S1, +S2 - GI/Abdominal Exam GI & Abdominal Exam: Distended, Soft, Normal Bowel Sounds. absent: Guarding ( the), Rebound - Extremities Exam Extremities Exam: Normal Capillary Refill. absent: Calf Tenderness, Pedal Edema - Neurological Exam Neurological Exam: Alert, Altered, Awake - Skin Skin Exam: Dry, Warm Assessment and Plan - Assessment and Plan (Free Text) Assessment: ASSESSMENT: 56-year-old male with PMH Pancreatic Cancer w/ metastasis, superior mesenteric vein thrombus admitted for altered mental status Colonic thickening, enterocolitis Increasing abdominal Ascites Hepatic encephalopathy may be secondary to sepsis Fecal impaction /constipationstatus post manual disimpaction Sepsis, rule out cholangitis Hematemesis Elevated LFT, r/o stent obstruction, ct scan from 06/2017 films were reviewed w/ Dr. 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 difficile continue Flagyl 250 mg po QID Request for evaluation for paracentesis Give patient albumin 25% twice a day 2 days, see orders Discussed plan with nursing and Dr. Castillo Seen and discussed w/ Dr. Guerrero. <Harjeet Guerrero V - Last Filed: 07/20/17 22:20> Objective - Vital Signs/Intake and Output Vital Signs (last 24 hours): Temp Pulse Resp BP Pulse Ox 98.6 F 76 17 125/69 93 L 07/20/17 16:00 07/20/17 16:00 07/20/17 16:00 07/20/17 16:00 07/20/17 16:00 - Medications Medications: Current Medications Albumin Human (Albumin Human 25% (12.5 Gm/50 Ml)) 12.5 gm IV Q12H AVA Stop: 07/22/17 12:01 Last Admin: 07/20/17 12:26 Dose: 12.5 gm Donepezil HCl (Aricept) 10 mg PO HS [facility] Last Admin: 07/20/17 21:21 Dose: 10 mg Phenytoin 150 mg/ Sodium (Chloride) 53 mls @ 104 mls/hr IVPB 0600,1800 [facility] Last Admin: 07/20/17 21:20 Dose: Not Given Piperacillin Sod/Tazobactam Sod (Zosyn 3.375 In Ns 100ml) 100 mls @ 200 mls/hr IVPB Q6 [facility] PRN Reason: Protocol Stop: 07/22/17 18:01 Last Admin: 07/20/17 18:07 Dose: 200 mls/hr Sodium Chloride (Sodium Chloride 0.45%) 1,000 mls @ 100 mls/hr IV .Q10H [facility] Last Admin: 07/20/17 21:20 Dose: 100 mls/hr Lactulose (Enulose) 10 gm NG DAILY [facility] Last Admin: 07/20/17 11:34 Dose: Not Given Lidocaine (Lidoderm) 1 ea TD DAILY [facility] Last Admin: 07/20/17 10:29 Dose: 1 ea Metronidazole (Flagyl) 250 mg PO QID [facility] PRN Reason: Protocol Last Admin: 07/20/17 21:21 Dose: 250 mg Ondansetron HCl (Zofran Inj) 4 mg IVP Q6H PRN PRN Reason: Nausea/Vomiting Last Admin: 07/20/17 10:50 Dose: 4 mg Pantoprazole Sodium (Protonix Ec Tab) 40 mg PO 0600,1600 [facility] Last Admin: 07/20/17 17:32 Dose: Not Given Rifaximin (Xifaxan) 550 mg PO BID [facility] PRN Reason: Protocol Last Admin: 07/20/17 18:07 Dose: 550 mg Thiamine HCl (Vitamin B1 Inj) 100 mg IM BID [facility] Last Admin: 07/20/17 18:07 Dose: 100 mg - Labs Labs: 07/20/17 06:45 07/20/17 06:45 PT 13.2 Seconds (9.9-11.8) H 07/12/17 09:00 INR 1.22 (0.93-1.08) H 07/12/17 09:00 APTT 26.1 Seconds (23.7-30.8) 07/12/17 09:00 Attending/Attestation - Attestation I have personally seen and examined this patient.: Yes I have fully participated in the care of the patient.: Yes I have reviewed all pertinent clinical information, including history, physical exam and plan: Yes Notes (Text): This is an addendum to GI progress report dictated by Vale Lo APN.The patient was seen and examined earlier. Medical records, lab studies, imagings were reviewed. Last 24 hours events reviewed. Agreed with the above treatment plan as outlined in Vale Lo NP's notes the with the addition of the following aabdomen was tense. Patient had episode of mucus with blood. CT reviewed suggestion of colitis =antibiotic associated diarrhea Plan We'll start the patient have IV albumin Request for large-volume paracentesis Would repeat stool for C. difficile clinically suggestive of C. difficile associated diarrhea follow-up with electro-lites Patients encephalopathy has been improving lactulose dose was reduced continue to Continue by mouth Christen 07/20/17 22:17
--- NOTE | 2017-07-20 16:19 | PN ---
DATE: 07/20/2017 SUBJECTIVE: The patient is in bed, in no acute distress, nontoxic. The patient is seen early this morning. PHYSICAL EXAMINATION: VITAL SIGNS: Temperature is 97, blood pressure is 106/60, respiratory rate of 20, heart rate of 78. HEENT: Unremarkable. NECK: Supple. LUNGS: Decreased breath sounds. HEART: Normal S1 and S2. ABDOMEN: Soft. LABORATORY DATA: Reveals a white count of 12,000, hemoglobin of 9, platelets of 257. Chemistries reveals a BUN of 7, creatinine of 0.7 and alkaline phosphatase is noted. Microbiology reveals a blood cultures are no growth. Urine culture no growth. The stool for Clostridium difficile antigen and toxin are both negative. Review of orders, reveals the patient to be on p.o. Flagyl, Zosyn. The patient had a CAT scan of the abdomen and pelvis yesterday, was also reviewed Cirrhosis, multiple hypodensity is within the liver. Metastasis cannot be excluded. ASSESSMENT AND PLAN: This is a 56-year-old male with systemic inflammatory response syndrome, sepsis must be rule out spontaneous bacterial peritonitis, acute encephalopathy and patient with pancreatic cancer with liver metastasis, status post chemotherapy and radiation, history of hypertension, diabetes, dementia, history of neurosyphilis, seizure disorders and on Zosyn at this point day #8. The patient also on Flagyl, the Clostridium difficile antigen and toxin are both negative. The patient had an HIV which is negative a year ago. Mir Blanco MD
[2017-07-20] MEDS: SODIUM CHLORIDE 0.9% IVPB SCH ×2 (18:06→21:20)
[2017-07-20] MEDS: PHENYTOIN IVPB SCH ×2 (18:06→21:20)
[2017-07-20] MEDS ORDERED: Potassium Chloride 20 mEq ER Tab PO ONE (18:13)
--- NOTE | 2017-07-20 19:41 | CP.PCM.PN ---
<Jorge Mckinley - Last Filed: 07/20/17 19:33> Subjective - Date & Time of Evaluation Date of Evaluation: 07/20/17 Time of Evaluation: 10:00 - Subjective Subjective: Neurology Progress Note for Dr. Gambino service Patient seen and examined at bedside. No acute events overnight. Patient's mentation has greatly improved with his improved ammonia level (29 today). No acute complaints as per patient. Objective - Vital Signs/Intake and Output Vital Signs (last 24 hours): Temp Pulse Resp BP Pulse Ox 97 F L 78 20 106/68 95 07/20/17 08:30 07/20/17 08:30 07/20/17 08:30 07/20/17 08:30 07/20/17 08:30 - Medications Medications: Current Medications Albumin Human (Albumin Human 25% (12.5 Gm/50 Ml)) 12.5 gm IV Q12H AVA Stop: 07/22/17 12:01 Last Admin: 07/20/17 12:26 Dose: 12.5 gm Donepezil HCl (Aricept) 10 mg PO HS [facility]A Last Admin: 07/19/17 21:53 Dose: 10 mg Phenytoin 150 mg/ Sodium (Chloride) 53 mls @ 104 mls/hr IVPB 0600,1800 [facility] Last Admin: 07/20/17 18:06 Dose: 104 mls/hr Piperacillin Sod/Tazobactam Sod (Zosyn 3.375 In Ns 100ml) 100 mls @ 200 mls/hr IVPB Q6 AVA PRN Reason: Protocol Stop: 07/22/17 18:01 Last Admin: 07/20/17 18:07 Dose: 200 mls/hr Sodium Chloride (Sodium Chloride 0.45%) 1,000 mls @ 100 mls/hr IV .Q10H AVA Last Admin: 07/20/17 10:26 Dose: 100 mls/hr Lactulose (Enulose) 10 gm NG DAILY [facility] Last Admin: 07/20/17 11:34 Dose: Not Given Lidocaine (Lidoderm) 1 ea TD DAILY [facility] Last Admin: 07/20/17 10:29 Dose: 1 ea Metronidazole (Flagyl) 250 mg PO QID [facility] PRN Reason: Protocol Last Admin: 07/20/17 18:07 Dose: 250 mg Ondansetron HCl (Zofran Inj) 4 mg IVP Q6H PRN PRN Reason: Nausea/Vomiting Last Admin: 07/20/17 10:50 Dose: 4 mg Pantoprazole Sodium (Protonix Ec Tab) 40 mg PO 0600,1600 [facility] Last Admin: 07/20/17 17:32 Dose: Not Given Rifaximin (Xifaxan) 550 mg PO BID [facility] PRN Reason: Protocol Last Admin: 07/20/17 18:07 Dose: 550 mg Thiamine HCl (Vitamin B1 Inj) 100 mg IM BID [facility] Last Admin: 07/20/17 18:07 Dose: 100 mg - Labs Labs: 07/20/17 06:45 07/20/17 06:45 PT 13.2 Seconds (9.9-11.8) H 07/12/17 09:00 INR 1.22 (0.93-1.08) H 07/12/17 09:00 APTT 26.1 Seconds (23.7-30.8) 07/12/17 09:00 - Additional Findings Additional findings: - Constitutional Appears: Non-toxic, no acute distress, resting comfortably in bed, not grossly lethargic/somnolent (easily arousable) - Head Exam Head Exam: ATRAUMATIC, NORMAL INSPECTION, NORMOCEPHALIC - Eye Exam Eye Exam: PERRL, Scleral icterus (mild icterus bilaterally), EOMI. absent: Conjunctival injection Pupil Exam: NORMAL ACCOMODATION, PERRL. absent: Fixed, Irregular, Unequal - ENT Exam ENT Exam: Mucous Membranes Moist, Protecting airway - Neck Exam Neck Exam: absent: Lymphadenopathy, Thyromegaly - Respiratory Exam Respiratory Exam: Decreased Breath Sounds (mild in all gabriel) otherwise CTAB, NORMAL BREATHING PATTERN. absent: Accessory Muscle Use, Chest Wall Tenderness, Prolonged Expiratory Phase, Rales, Rhonchi, Wheezes, Respiratory Distress, Stridor - Cardiovascular Exam Cardiovascular Exam: RRR, REGULAR RHYTHM, +S1, +S2. absent: Tachycardia, Bradycardia, Irregular Rhythm, JVD, RRR, +S4 - GI/Abdominal Exam GI & Abdominal Exam: Distended (unchanged from prior exam), Firm, Diminished Bowel Sounds. absent: Rigid, Soft, Hyperactive Bowel Sounds, Hypoactive Bowel Sounds, Normal Bowel Sounds - Rectal Exam Rectal Exam: Deferred - Extremities Exam Extremities Exam: Normal tone, +2 radial and +1 dorsalis pedis pulses. 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 His altered mental status is likely due to toxic metabolic encephalopathy with an additional component of hepatic encephalopathy given his highly elevated ammonia, all in the setting of underlying pancreatic cancer. His mental status has significantly improved with as his ammonia level has decreased. Plan: 1) Continue dilantin for seizure ppx, safe to continue PO now that patient awake and alert 2) Avoid sedative medications 3) Thiamine 100mg BID for cognition 4) continue medical management as per primary team and GI Patient reviewed and discussed with attending, Dr. Gambino. <[place] - Last Filed: 07/21/17 12:56> Objective - Vital Signs/Intake and Output Vital Signs (last 24 hours): Temp Pulse Resp BP Pulse Ox 98.6 F 65 17 125/69 93 L 07/20/17 16:00 07/21/17 04:52 07/20/17 16:00 07/20/17 16:00 07/20/17 16:00 Intake and Output: 07/21/17 07/21/17 06:59 18:59 Intake Total 0 2400 Output Total 575 575 Balance -575 1825 - Medications Medications: Current Medications Albumin Human (Albumin Human 25% (12.5 Gm/50 Ml)) 12.5 gm IV Q12H AVA Stop: 07/22/17 12:01 Last Admin: 07/21/17 01:00 Dose: 12.5 gm Donepezil HCl (Aricept) 10 mg PO HS [facility] Last Admin: 07/20/17 21:21 Dose: 10 mg Phenytoin 150 mg/ Sodium (Chloride) 53 mls @ 104 mls/hr IVPB 0600,1800 [facility] Last Admin: 07/21/17 05:53 Dose: 104 mls/hr Sodium Chloride (Sodium Chloride 0.45%) 1,000 mls @ 100 mls/hr IV .Q10H [facility] Last Admin: 07/21/17 05:57 Dose: 100 mls/hr Lactulose (Enulose) 10 gm NG DAILY [facility] Last Admin: 07/21/17 10:09 Dose: 10 gm Lidocaine (Lidoderm) 1 ea TD DAILY [facility] Last Admin: 07/21/17 10:10 Dose: 1 ea Ondansetron HCl (Zofran Inj) 4 mg IVP Q6H PRN PRN Reason: Nausea/Vomiting Last Admin: 07/20/17 10:50 Dose: 4 mg Pantoprazole Sodium (Protonix Ec Tab) 40 mg PO 0600,1600 [facility] Last Admin: 07/21/17 05:57 Dose: 40 mg Rifaximin (Xifaxan) 550 mg PO BID [facility] PRN Reason: Protocol Last Admin: 07/21/17 10:10 Dose: 550 mg Thiamine HCl (Vitamin B1 Inj) 100 mg IM BID [facility] Last Admin: 07/21/17 10:10 Dose: 100 mg - Labs Labs: 07/20/17 06:45 07/20/17 06:45 PT 13.2 Seconds (9.9-11.8) H 07/12/17 09:00 INR 1.22 (0.93-1.08) H 07/12/17 09:00 APTT 26.1 Seconds (23.7-30.8) 07/12/17 09:00 Attending/Attestation - Attestation I have personally seen and examined this patient.: Yes I have fully participated in the care of the patient.: Yes I have reviewed all pertinent clinical information, including history, physical exam and plan: Yes
--- NOTE | 2017-07-20 21:27 | CP.PCM.PN ---
Subjective - Date & Time of Evaluation Date of Evaluation: 07/20/17 Time of Evaluation: 18:00 - Subjective Subjective: Patient reportedly with vomiting this morning after taking PO med; just complaining of leg pain currently; Objective - Vital Signs/Intake and Output Vital Signs (last 24 hours): Temp Pulse Resp BP Pulse Ox 98.6 F 76 17 125/69 93 L 07/20/17 16:00 07/20/17 16:00 07/20/17 16:00 07/20/17 16:00 07/20/17 16:00 - Medications Medications: Current Medications Albumin Human (Albumin Human 25% (12.5 Gm/50 Ml)) 12.5 gm IV Q12H AVA Stop: 07/22/17 12:01 Last Admin: 07/20/17 12:26 Dose: 12.5 gm Donepezil HCl (Aricept) 10 mg PO HS [facility] Last Admin: 07/19/17 21:53 Dose: 10 mg Phenytoin 150 mg/ Sodium (Chloride) 53 mls @ 104 mls/hr IVPB 0600,1800 [facility] Last Admin: 07/20/17 18:06 Dose: 104 mls/hr Piperacillin Sod/Tazobactam Sod (Zosyn 3.375 In Ns 100ml) 100 mls @ 200 mls/hr IVPB Q6 [facility] PRN Reason: Protocol Stop: 07/22/17 18:01 Last Admin: 07/20/17 18:07 Dose: 200 mls/hr Sodium Chloride (Sodium Chloride 0.45%) 1,000 mls @ 100 mls/hr IV .Q10H [facility] Last Admin: 07/20/17 10:26 Dose: 100 mls/hr Lactulose (Enulose) 10 gm NG DAILY [facility] Last Admin: 07/20/17 11:34 Dose: Not Given Lidocaine (Lidoderm) 1 ea TD DAILY [facility] Last Admin: 07/20/17 10:29 Dose: 1 ea Metronidazole (Flagyl) 250 mg PO QID [facility] PRN Reason: Protocol Last Admin: 07/20/17 18:07 Dose: 250 mg Ondansetron HCl (Zofran Inj) 4 mg IVP Q6H PRN PRN Reason: Nausea/Vomiting Last Admin: 07/20/17 10:50 Dose: 4 mg Pantoprazole Sodium (Protonix Ec Tab) 40 mg PO 0600,1600 [facility] Last Admin: 07/20/17 17:32 Dose: Not Given Rifaximin (Xifaxan) 550 mg PO BID [facility] PRN Reason: Protocol Last Admin: 07/20/17 18:07 Dose: 550 mg Thiamine HCl (Vitamin B1 Inj) 100 mg IM BID [facility] Last Admin: 07/20/17 18:07 Dose: 100 mg - Labs Labs: 07/20/17 06:45 07/20/17 06:45 PT 13.2 Seconds (9.9-11.8) H 07/12/17 09:00 INR 1.22 (0.93-1.08) H 07/12/17 09:00 APTT 26.1 Seconds (23.7-30.8) 07/12/17 09:00 - Constitutional Appears: Well, No Acute Distress - Head Exam Head Exam: NORMAL INSPECTION - ENT Exam ENT Exam: Mucous Membranes Moist - Respiratory Exam Respiratory Exam: absent: Respiratory Distress Additional comments: minimal rales; - Cardiovascular Exam Cardiovascular Exam: RRR, +S1, +S2 - GI/Abdominal Exam GI & Abdominal Exam: Distended, Soft, Tenderness - Exam Exam: absent: Bladder Distension - Extremities Exam Extremities Exam: Normal Inspection - Neurological Exam Neurological Exam: Alert, Awake - Skin Skin Exam: Normal Color, Warm. absent: Cyanosis Assessment and Plan (1) ANA MARIA (acute kidney injury) Assessment & Plan: Oliguria, resolved; was likely due to niño migration/displacement; otherwise, renal function was not impaired; monitor; Status: Resolved (2) Hypernatremia Assessment & Plan: Resolving with free water replenishment and decreased amount of stool output; -decrease 1/2NS to 100 cc/hr; Status: Acute (3) Hypokalemia Assessment & Plan: Mild; in the setting of stool losses and likely some volume depletion; recommend to replenish PO as much as possible, especially with reported run of Vtach; Status: Acute
[2017-07-21] MEDS: Piperacillin/Tazobact 3.375 gm 100 ML IVPB SCH ×2 (00:30→05:57)
--- NOTE | 2017-07-21 00:48 | PN ---
DATE: 07/20/2017 Hospital visit on the medical floor This is John Saha's hospital visit for Dr. Finch. SUBJECTIVE: The patient is a 56-year-old male, seen lying awake in bed, now being monitored on remote telemetry as per Dr. Castillo after the patient had significant episodes of vomiting earlier today. The patient is otherwise in no acute distress, known to suffer from pancreatic carcinoma with liver metastasis with distended abdomen. He is now treated after infection with bacterial peritonitis and appears in no acute distress. OBJECTIVE: VITAL SIGNS: Temperature 98.6, pulse 76, respirations 17, blood pressure 125/69, and pulse ox 93%. HEENT: Unremarkable. NECK: Supple. HEART: Regular rate. LUNGS: Clear. ABDOMEN: Distended with positive ascitic fluid wave. EXTREMITIES: No edema. SKIN: Warm and dry. NEUROLOGIC: Awake and alert. LABORATORY DATA: The patient's labs were done. White blood cell count of 12.3, hemoglobin of 9.5, hematocrit of 30.7, and platelet count of 257,000 with a chem metabolic panel within normal limits except for potassium of 3.4, nonfasting glucose 147, calcium of 7.8, T bili of 3.4, AST of 62, and alkaline phosphatase 1152. The patient had a repeat urinalysis shows large amount of blood and large amount of bilirubin. The patient had a C. difficile antigen done earlier today, antigen and toxin were both negative. Same test was done yesterday with the results the same as negative. ASSESSMENT: The assessment for this patient is that of improved acute encephalopathy with systemic inflammatory response syndrome with questionable spontaneous bacterial peritonitis, history of pancreatic cancer with liver metastasis, status post chemoradiation, hypertension, diabetes, dementia, history of neurosyphilis, seizure disorder, ascites, nausea, and vomiting. PLAN: The plan for this patient after conversation with Dr. Finch to continue his present medical regimen. We will monitor clinically with labs as indicated with prognosis for this patient guarded. Wild Santillan MD
[2017-07-21] MEDS: Albumin Human 25% (12.5 gm/50 ml) IV SCH ×2 (01:00→14:56)
--- NOTE | 2017-07-21 02:25 | PN ---
DATE: 07/20/2017 SUBJECTIVE: The patient is 56 years old male. The patient was seen and examined on 07/20/2017 having intractable nausea and vomiting and even cannot give Dilantin by mouth, transferred the patient to the telemetry to give Dilantin IV. The patient's abdominal girth is increasing and abdominal distention. The patient is awake and alert. No hematuria. No hematochezia. The patient is supposed to go for paracentesis today. PHYSICAL EXAMINATION: VITAL SIGNS: Temperature 97, pulse 78, respiratory rate 20, blood pressure 106/68, and pulse oximetry of 95%. HEENT: Head is normocephalic and atraumatic. Eyes, PERRLA. Extraocular muscles intact. Conjunctivae clear. Nose patent. Mucous membranes moist. NECK: Supple. No carotid bruits. No JVD or thyromegaly. CHEST: Bilaterally symmetrical. HEART: S1 and S2 positive. LUNGS: Clear to auscultation. ABDOMEN: Soft. Bowel sounds present. No organomegaly. EXTREMITIES: No edema. No cyanosis. NEUROLOGIC: The patient is awake and alert. Moving all 4 extremities. No focal deficits. MEDICATIONS: Reviewed by me, Aricept, NS, Zosyn, sodium chloride, potassium, Enulose, Lidoderm, Flagyl, Zofran, and Protonix. LABORATORY DATA: White blood cell 12.3, hemoglobin 9.5, hematocrit 30.7, and platelets 257. Sodium 142, potassium 3.4, BUN 7, creatinine 0.4, and glucose 120. ASSESSMENT AND PLAN: Mr. John Saha is 56 years old male with leukocytosis; anemia; hypokalemia, potassium was replaced and hyperglycemia. The patient was given IV albumin by Dr. Guerrero, requested paracentesis. We will repeat stool for Clostridium difficile toxin with colitis. Encephalopathy has been improving with lactulose and now lactulose dose is reduced. Seen by Dr. Garces for renal insufficiency and especially the patient was not producing urine, may be due to threats facing, acute kidney injury, hyponatremia. Hyponatremia is resolving with free water. Oliguria resolved. The patient seen Dr. Blanco also and oncologist. Repeat labs. We will followup. Michelle Castillo MD
--- NOTE | 2017-07-21 04:01 | CP.PCM.PN ---
Subjective - Date & Time of Evaluation Date of Evaluation: 07/21/17 Time of Evaluation: 03:58 - Subjective Subjective: S: It was requested to insert a heparin lock. Patient has no acute symptoms now. Pertinent medical record was reviewed. O: Last Vital Signs 3 Temp 98.6 F 07/20/17 16:00 Pulse 76 07/20/17 16:00 Resp 17 07/20/17 16:00 BP 125/69 07/20/17 16:00 Pulse Ox 93 L 07/20/17 16:00 Awake, alert, not in distress. LUNGS:Normal breathing pattern. A:Poor venous access. Encounter for intravenous line placement. P: # 22 angiocath was inserted in right hand. Objective - Vital Signs/Intake and Output Vital Signs (last 24 hours): Temp Pulse Resp BP Pulse Ox 98.6 F 76 17 125/69 93 L 07/20/17 16:00 07/20/17 16:00 07/20/17 16:00 07/20/17 16:00 07/20/17 16:00 Intake and Output: 07/20/17 07/21/17 18:59 06:59 Intake Total 0 Output Total 375 Balance -375 - Medications Medications: Current Medications Albumin Human (Albumin Human 25% (12.5 Gm/50 Ml)) 12.5 gm IV Q12H AVA Stop: 07/22/17 12:01 Last Admin: 07/21/17 01:00 Dose: 12.5 gm Donepezil HCl (Aricept) 10 mg PO HS [facility] Last Admin: 07/20/17 21:21 Dose: 10 mg Phenytoin 150 mg/ Sodium (Chloride) 53 mls @ 104 mls/hr IVPB 0600,1800 [facility] Last Admin: 07/20/17 21:20 Dose: Not Given Piperacillin Sod/Tazobactam Sod (Zosyn 3.375 In Ns 100ml) 100 mls @ 200 mls/hr IVPB Q6 [facility] PRN Reason: Protocol Stop: 07/22/17 18:01 Last Admin: 07/21/17 00:30 Dose: 200 mls/hr Sodium Chloride (Sodium Chloride 0.45%) 1,000 mls @ 100 mls/hr IV .Q10H [facility] Last Admin: 07/20/17 21:20 Dose: 100 mls/hr Lactulose (Enulose) 10 gm NG DAILY [facility] Last Admin: 07/20/17 11:34 Dose: Not Given Lidocaine (Lidoderm) 1 ea TD DAILY [facility] Last Admin: 07/20/17 10:29 Dose: 1 ea Metronidazole (Flagyl) 250 mg PO QID [facility] PRN Reason: Protocol Last Admin: 07/20/17 21:21 Dose: 250 mg Ondansetron HCl (Zofran Inj) 4 mg IVP Q6H PRN PRN Reason: Nausea/Vomiting Last Admin: 07/20/17 10:50 Dose: 4 mg Pantoprazole Sodium (Protonix Ec Tab) 40 mg PO 0600,1600 [facility] Last Admin: 07/20/17 17:32 Dose: Not Given Rifaximin (Xifaxan) 550 mg PO BID [facility] PRN Reason: Protocol Last Admin: 07/20/17 18:07 Dose: 550 mg Thiamine HCl (Vitamin B1 Inj) 100 mg IM BID [facility] Last Admin: 07/20/17 18:07 Dose: 100 mg - Labs Labs: 07/20/17 06:45 07/20/17 06:45 PT 13.2 Seconds (9.9-11.8) H 07/12/17 09:00 INR 1.22 (0.93-1.08) H 07/12/17 09:00 APTT 26.1 Seconds (23.7-30.8) 07/12/17 09:00
[2017-07-21] MEDS: PHENYTOIN IVPB SCH ×2 (05:53→17:22)
[2017-07-21] MEDS: SODIUM CHLORIDE 0.9% IVPB SCH ×2 (05:53→17:22)
[2017-07-21] MEDS: Sodium Chloride 0.45% 1,000 ML IV SCH ×2 (05:57→17:23)
[2017-07-21] MEDS: Pantoprazole 40 mg EC Tab PO SCH ×2 (05:57→15:02)
--- NOTE | 2017-07-21 08:46 | CARD ---
APPROVED REPORT EKG Measurement Heart [id number] VT [id number] [id number] <Conclusion> Normal sinus rhythm Left axis deviation Low voltage QRS Possible Anterolateral infarct, age undetermined
--- NOTE | 2017-07-21 09:09 | CP.PCM.PN ---
Subjective - Date & Time of Evaluation Date of Evaluation: 07/21/17 Time of Evaluation: 09:03 - Subjective Subjective: PGY-[address] Garces's Nephrology service: Pt seen and examined at bedside. Pt oriented to person only. He denies pain, or other complaints at this time. Nursing reports no episodes of vomiting overnight. He is refusing AM labwork. Objective - Vital Signs/Intake and Output Vital Signs (last 24 hours): Temp Pulse Resp BP Pulse Ox 98.6 F 65 17 125/69 93 L 07/20/17 16:00 07/21/17 04:52 07/20/17 16:00 07/20/17 16:00 07/20/17 16:00 Intake and Output: 07/21/17 07/21/17 06:59 18:59 Intake Total 0 2400 Output Total 575 575 Balance -575 1825 - Medications Medications: Current Medications Albumin Human (Albumin Human 25% (12.5 Gm/50 Ml)) 12.5 gm IV Q12H [facility] Stop: 07/22/17 12:01 Last Admin: 07/21/17 01:00 Dose: 12.5 gm Donepezil HCl (Aricept) 10 mg PO HS [facility] Last Admin: 07/20/17 21:21 Dose: 10 mg Phenytoin 150 mg/ Sodium (Chloride) 53 mls @ 104 mls/hr IVPB 0600,1800 [facility] Last Admin: 07/21/17 05:53 Dose: 104 mls/hr Sodium Chloride (Sodium Chloride 0.45%) 1,000 mls @ 100 mls/hr IV .Q10H [facility] Last Admin: 07/21/17 05:57 Dose: 100 mls/hr Lactulose (Enulose) 10 gm NG DAILY [facility] Last Admin: 07/20/17 11:34 Dose: Not Given Lidocaine (Lidoderm) 1 ea TD DAILY [facility] Last Admin: 07/20/17 10:29 Dose: 1 ea Ondansetron HCl (Zofran Inj) 4 mg IVP Q6H PRN PRN Reason: Nausea/Vomiting Last Admin: 07/20/17 10:50 Dose: 4 mg Pantoprazole Sodium (Protonix Ec Tab) 40 mg PO 0600,1600 [facility] Last Admin: 07/21/17 05:57 Dose: 40 mg Rifaximin (Xifaxan) 550 mg PO BID [facility] PRN Reason: Protocol Last Admin: 07/20/17 18:07 Dose: 550 mg Thiamine HCl (Vitamin B1 Inj) 100 mg IM BID [facility] Last Admin: 07/20/17 18:07 Dose: 100 mg - Labs Labs: 07/20/17 06:45 07/20/17 06:45 PT 13.2 Seconds (9.9-11.8) H 07/12/17 09:00 INR 1.22 (0.93-1.08) H 07/12/17 09:00 APTT 26.1 Seconds (23.7-30.8) 07/12/17 09:00 - Constitutional Appears: No Acute Distress - Head Exam Head Exam: ATRAUMATIC, NORMOCEPHALIC - Eye Exam Eye Exam: EOMI, Scleral icterus - ENT Exam ENT Exam: Mucous Membranes Moist - Neck Exam Neck Exam: Normal Inspection - Respiratory Exam Respiratory Exam: NORMAL BREATHING PATTERN. absent: Rales, Rhonchi, Wheezes - Cardiovascular Exam Cardiovascular Exam: REGULAR RHYTHM, +S1, +S2 - GI/Abdominal Exam GI & Abdominal Exam: Distended, Firm. absent: Guarding, Soft Additional comments: ascites present; fluid wave - Extremities Exam Extremities Exam: Normal Capillary Refill, Pedal Edema (non-pitting) - Neurological Exam Neurological Exam: Alert, Altered - Skin Skin Exam: Dry, Intact Assessment and Plan - Assessment and Plan (Free Text) Plan: (1) ANA MARIA (acute kidney injury) Assessment & Plan: Oliguria has resolved - likely due to niño migration/displacement - renal function not impaired - Pt refused AM labs but BUN/Cr stable last few days Status: Resolved (2) Hypernatremia Assessment & Plan: - f/u AM labs - 1/2NS @ 100 cc/h Status: Acute (3) Hypokalemia Assessment & Plan: Pt refused AM labs - in the setting of stool losses and likely some volume depletion Status: Acute
--- NOTE | 2017-07-21 10:09 | PN ---
DATE: 07/21/2017 SUBJECTIVE: The patient is in bed, in no acute distress, and nontoxic. PHYSICAL EXAMINATION: VITAL SIGNS: Temperature is 98, blood pressure is 125/60, and respiratory rate of 18. HEENT: Unremarkable. NECK: Supple. LUNGS: Decreased breath sounds. HEART: Normal S1 and S2. ABDOMEN: Soft and nontender. LABORATORY DATA: Reveals a white count of 12,000, hemoglobin of 9, and platelets of 257. Chemistries reveals a BUN of 7 and creatinine of 0.4. Urinalysis is noted. Stool for C. diff is negative. Review of orders reveals the patient to be on Zosyn. Dr. Thomson's note is reviewed. Dr. Castillo's note from yesterday is noted. ASSESSMENT AND PLAN: This is a 56-year-old male with systemic inflammatory response syndrome and sepsis, rule out spontaneous bacterial peritonitis. The patient with acute encephalopathy and pancreatic cancer and liver metastasis, status post chemotherapy and radiation, history of hypertension, diabetes, and dementia. History of neurosyphilis, seizure disorder #9 of Zosyn. No further antibiotics indicated. We will discontinue the antibiotics. The patient is afebrile. White count is down to 12,300 and we will discontinue the Flagyl and Zosyn. Clostridium difficile antigen and toxins are negative x2. Mir Blanco MD
[2017-07-21] MEDS: Thiamine 100 mg/ml Inj IM SCH ×2 (10:10→17:47)
[2017-07-21] MEDS: Lidocaine 5% Patch TD SCH (10:10)
[2017-07-21 12:42] LABS: BODY FLUID TYPE PERITONEAL
[2017-07-21 13:08] LABS: BF GROSS APPEARANCE CLEAR (CLEAR)
[2017-07-21 13:10] LABS: BODY FLUID TOTAL COUNT 100 (0-0)
--- NOTE | 2017-07-21 15:46 | CP.PCM.PN ---
<Vale Lo - Last Filed: 07/21/17 15:46> Subjective - Date & Time of Evaluation Date of Evaluation: 07/21/17 Time of Evaluation: 10:10 - Subjective Subjective: Seen and examined at the bedside earlier today, chart was reviewed. Patient is awake and alert with periods of confusion. Patient denies abdominal discomfort , his abdomen is distended. No reports of nausea, vomiting or any overt GI bleeding. Patient is currently nothing by mouth on IV fluids. Refused am labs . Objective - Vital Signs/Intake and Output Vital Signs (last 24 hours): Temp Pulse Resp BP Pulse Ox 98.6 F 65 17 125/69 93 L 07/20/17 16:00 07/21/17 04:52 07/20/17 16:00 07/20/17 16:00 07/20/17 16:00 Intake and Output: 07/21/17 07/21/17 06:59 18:59 Intake Total 0 2400 Output Total 575 575 Balance -575 1825 - Medications Medications: Current Medications Albumin Human (Albumin Human 25% (12.5 Gm/50 Ml)) 12.5 gm IV Q12H AVA Stop: 07/22/17 12:01 Last Admin: 07/21/17 14:56 Dose: 12.5 gm Donepezil HCl (Aricept) 10 mg PO HS AVA Last Admin: 07/20/17 21:21 Dose: 10 mg Phenytoin 150 mg/ Sodium (Chloride) 53 mls @ 104 mls/hr IVPB 0600,1800 AVA Last Admin: 07/21/17 05:53 Dose: 104 mls/hr Sodium Chloride (Sodium Chloride 0.45%) 1,000 mls @ 100 mls/hr IV .Q10H AVA Last Admin: 07/21/17 05:57 Dose: 100 mls/hr Lactulose (Enulose) 10 gm NG DAILY AVA Last Admin: 07/21/17 10:09 Dose: 10 gm Lidocaine (Lidoderm) 1 ea TD DAILY [facility]A Last Admin: 07/21/17 10:10 Dose: 1 ea Ondansetron HCl (Zofran Inj) 4 mg IVP Q6H PRN PRN Reason: Nausea/Vomiting Last Admin: 07/20/17 10:50 Dose: 4 mg Pantoprazole Sodium (Protonix Ec Tab) 40 mg PO 0600,1600 AVA Last Admin: 07/21/17 15:02 Dose: 40 mg Rifaximin (Xifaxan) 550 mg PO BID [facility] PRN Reason: Protocol Last Admin: 07/21/17 10:10 Dose: 550 mg Thiamine HCl (Vitamin B1 Inj) 100 mg IM BID [facility] Last Admin: 07/21/17 10:10 Dose: 100 mg - Labs Labs: 07/20/17 06:45 07/20/17 06:45 PT 13.2 Seconds (9.9-11.8) H 07/12/17 09:00 INR 1.22 (0.93-1.08) H 07/12/17 09:00 APTT 26.1 Seconds (23.7-30.8) 07/12/17 09:00 - Constitutional Appears: No Acute Distress - Eye Exam Eye Exam: Scleral icterus - ENT Exam ENT Exam: Mucous Membranes Moist - Neck Exam Neck Exam: Normal Inspection - Respiratory Exam Respiratory Exam: Decreased Breath Sounds, NORMAL BREATHING PATTERN. absent: Rales, Wheezes, Respiratory Distress - Cardiovascular Exam Cardiovascular Exam: +S1, +S2 - GI/Abdominal Exam GI & Abdominal Exam: Distended (positive ascites), Firm, Normal Bowel Sounds. absent: Guarding, Tenderness, Rebound - Extremities Exam Extremities Exam: Normal Capillary Refill, Pedal Edema (mild). absent: Calf Tenderness - Neurological Exam Neurological Exam: Alert, Altered (confused at times), Awake - Skin Skin Exam: Dry, Warm Assessment and Plan - Assessment and Plan (Free Text) Assessment: ASSESSMENT: 56-year-old male with PMH Pancreatic Cancer w/ metastasis, superior mesenteric vein thrombus admitted for altered mental status Colonic thickening, enterocolitis Increasing abdominal Ascites Hepatic encephalopathy may be secondary to sepsis Fecal impaction /constipation/status post manual disimpaction Sepsis, rule out cholangitis Hematemesis Elevated LFT, r/o stent obstruction, ct scan from 06/2017 films were reviewed w/ Dr. 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 Wilson. <Harjeet Guerrero V - Last Filed: 07/21/17 20:17> Objective - Vital Signs/Intake and Output Vital Signs (last 24 hours): Temp Pulse Resp BP Pulse Ox 99.1 F 85 16 100/70 93 L 07/21/17 16:00 07/21/17 16:00 07/21/17 16:00 07/21/17 16:00 07/21/17 16:00 Intake and Output: 07/21/17 07/22/17 18:59 06:59 Intake Total 2400 Output Total 575 Balance 1825 - Medications Medications: Current Medications Albumin Human (Albumin Human 25% (12.5 Gm/50 Ml)) 12.5 gm IV Q12H [facility] Stop: 07/22/17 12:01 Last Admin: 07/21/17 14:56 Dose: 12.5 gm Donepezil HCl (Aricept) 10 mg PO HS [facility] Last Admin: 07/20/17 21:21 Dose: 10 mg Phenytoin 150 mg/ Sodium (Chloride) 53 mls @ 104 mls/hr IVPB 0600,1800 AVA Last Admin: 07/21/17 17:22 Dose: 104 mls/hr Sodium Chloride (Sodium Chloride 0.45%) 1,000 mls @ 100 mls/hr IV .Q10H [facility]A Last Admin: 07/21/17 17:23 Dose: 100 mls/hr Lactulose (Enulose) 20 gm PO BID [facility] Last Admin: 07/21/17 17:47 Dose: 20 gm Lidocaine (Lidoderm) 1 ea TD DAILY [facility] Last Admin: 07/21/17 10:10 Dose: 1 ea Ondansetron HCl (Zofran Inj) 4 mg IVP Q6H PRN PRN Reason: Nausea/Vomiting Last Admin: 07/20/17 10:50 Dose: 4 mg Pantoprazole Sodium (Protonix Ec Tab) 40 mg PO 0600,1600 [facility] Last Admin: 07/21/17 15:02 Dose: 40 mg Rifaximin (Xifaxan) 550 mg PO BID [facility] PRN Reason: Protocol Last Admin: 07/21/17 17:23 Dose: 550 mg Thiamine HCl (Vitamin B1 Inj) 100 mg IM BID [facility] Last Admin: 07/21/17 17:47 Dose: 100 mg - Labs Labs: 07/20/17 06:45 07/20/17 06:45 PT 13.2 Seconds (9.9-11.8) H 07/12/17 09:00 INR 1.22 (0.93-1.08) H 07/12/17 09:00 APTT 26.1 Seconds (23.7-30.8) 07/12/17 09:00 Attending/Attestation - Attestation Notes (Text): Status post large-volume paracentesis. Abdomen softly distended on lactulose once daily no bowel movements yet. Would increase the lactulose to twice daily 30 mL Follow-up follow ammonia levels Continue by mouth Flagyl 07/21/17 20:16
--- NOTE | 2017-07-21 18:20 | PN ---
DATE OF VISIT: 07/21/2017 This is the patient's hospital visit on the medical floor. For Dr. Finch. SUBJECTIVE: The patient is a 56-year-old male, seen lying, awake in bed, on remote telemetry with episodes of vomiting early today with his pancreatic carcinoma, liver metastases causing significant tense ascites with distended abdomen. He is for paracentesis today as per Dr. Raghu Luque. He appears in no acute distress. OBJECTIVE VITAL SIGNS: Temperature 98.6, pulse 65, respirations 17, blood pressure 125/69, pulse ox 93%. PHYSICAL EXAMINATION: HEENT: Unremarkable. NECK: Supple. HEART: Tachy rate, regular rhythm. LUNGS: Rare rhonchi, minimal decreased breath sounds. ABDOMEN: Distended, positive tense ascites. EXTREMITIES: Faint +1 edema. NEUROLOGIC: Awake and alert but confused. SKIN: Warm and dry. LABORATORY DATA: The patient's labs were done yesterday, will be repeated tomorrow with a finger-stick blood sugar of 91 earlier today. The patient had a paracentesis ultrasound to be done and it will be read upon return. ASSESSMENT: For this patient is that of tense ascites with vomiting, history of pancreatic cancer with liver metastases, hypertension, diabetes, dementia, history of neurosyphilis, seizure disorder improved, acute encephalopathy with systemic inflammatory response syndrome with bacterial peritonitis?, constipation, also questionable superior mesenteric vein thrombosis history. PLAN: The plan for this patient after conversation with Dr. Finch is to continue present medical regimen with paracentesis to be done with tissue fluid to be analyzed with prognosis for this patient guarded with albumin being given by Dr. Guerrero and Ms. Lo. Wild Santillan MD
[2017-07-21 20:01] LABS: BASO # 0.02 K/mm3 (0.0-2.0); BASO % 0.2 % (0.0-3.0); EOS # 0.1 (0.0-0.7); GRAN # 8.44 (1.4-6.5); GRAN % 86.4 % (50.0-68.0); HEMATOCRIT 28.7 % (42.0-52.0); LYMPH # 0.6 (1.2-3.4); LYMPH % 5.6 % (22.0-35.0); MEAN CORPUSCULAR HEMOGLOBIN 28.2 pg (25.0-35.0); MEAN CORPUSCULAR HGB CONC 32.1 g/dl (31.0-37.0); MEAN PLATELET VOLUME 9.9 fl (7.0-11.0); MONO # 0.7 (0.1-0.6); MONO % 6.8 % (1.0-6.0); RED CELL DISTRIBUTION WIDTH 21.3 % (11.5-14.5); WHITE BLOOD COUNT 9.8 10^3/ul (4.5-11.0)
[2017-07-21 20:16] LABS: ALKALINE PHOSPHATASE 831 U/L (38-126); ALT/SGPT 39 U/L (7-56); AST/SGOT 57 U/L (17-59); BILIRUBIN,TOTAL 3.7 mg/dL (0.2-1.3); BLOOD UREA NITROGEN 4 mg/dL (7-21); CALCIUM 7.7 mg/dL (8.4-10.5); CARBON DIOXIDE 19 mmol/L (21-33); CHLORIDE 106 mmol/L (98-107); GFR AFRICAN-AMERICAN > 60; GLUCOSE,RANDOM 107 mg/dL (70-110); MAGNESIUM 1.7 mg/dL (1.7-2.2); POTASSIUM 3.1 mmol/L (3.6-5.0); TOTAL PROTEIN 5.2 g/dL (5.8-8.3)
[2017-07-21 20:30] LABS: SODIUM 136 mmol/L (132-148)
[2017-07-22] MEDS: Albumin Human 25% (12.5 gm/50 ml) IV SCH ×2 (00:20→12:01)
--- NOTE | 2017-07-22 03:00 | CON ---
DATE: 07/21/2017 LOCATION: The patient is in room 371, bed 1. REASON FOR CONSULTATION: Possible ventricular tachycardia, on rhythm strip seem to be artifact, CA of the pancreas with metastasis, altered mental status, history of hypertension, diabetes, dementia, neurosyphilis, seizure disorder. HISTORY OF PRESENT ILLNESS: A 56-year-old male, admitted to the hospital with altered mental status. The patient was confused. The patient is a known case of CA of the pancreas with metastasis to liver. The patient was admitted with acute encephalopathy, status post chemotherapy and radiation for CA of the pancreas. The patient is lying flat in bed at present. Denies chest pain, shortness of breath, but the patient also is very confused. PAST MEDICAL HISTORY: Positive for CA of the pancreas with metastasis to the liver, has also common bile duct stent inserted, mesenteric vein thrombosis, hypertension, diabetes, neurosyphilis with bipolar disorder, schizophrenia, seizure disorder, asthma, obstructive jaundice, encephalopathy. PERSONAL HISTORY: Not available. FAMILY HISTORY: Not significant. HOME MEDICATIONS: Included Desyrel 50 mg p.o. at bedtime p.r.n., clozapine 200 mg p.o. q.a.m. and 300 mg p.o. at bedtime, Dilantin 150 mg p.o. b.i.d., Aricept 10 mg p.o. daily, and Tylenol p.r.n. q. 4 hourly. REVIEW OF SYSTEMS: All the systems are reviewed, positive as mentioned in history, others were negative. PHYSICAL EXAMINATION VITAL SIGNS: Blood pressure 125/69, respirations 17, pulse 76, temperature 98.6. HEENT: Head is normocephalic. Eyes, pupils normal. Conjunctivae slightly pale. NECK: JVP low. Carotids are equal. Thorax, AP diameter is normal. LUNGS: Clear. CARDIOVASCULAR: S1, S2. ABDOMEN: Protuberant. Ascites present. EXTREMITIES: No clubbing, no cyanosis. LABORATORY DATA: Shows WBC 12.3, hemoglobin 9.5, hematocrit 30.7, platelets 257. Sodium 142, potassium 3.4, BUN 7, and creatinine 0.4. Sugar 91, earlier sugar was 120. Calcium 7.8, but albumin also low 2.7, total protein low 5.6, total bilirubin 3.4. AST 62, ALT 41, and alkaline phosphatase 1152. The patient's CAT scan of the abdomen showed cirrhosis, multiple hypodensities within the liver, probably malignant metastasis, moderate to large ascites, apparently enteritis, and colitis nonspecific. EKG showed sinus rhythm, left anterior hemiblock, poor progression of R, V1 to V6, may be related to left anterior hemiblock. Check telemetry monitors. When nurses thought it was ventricular tachycardia, actually it was artifact. The patient had no run of ventricular tachycardia. DIAGNOSES: On the monitor, artifact, no ventricular tachycardia. Cancer of the pancreas with metastasis to the liver, ascites, altered mental status, encephalopathy, status post stent in the common bile duct. Common bile duct stent, mesenteric venous thrombosis, hypertension, diabetes, neurosyphilis, bipolar disorder, schizophrenia, seizure disorder, asthma, obstructive jaundice, sepsis, encephalopathy, altered mental status. PLAN: All the telemetry strips were reviewed. There is no significant arrhythmia, one place where the nurses thought was ventricular tachycardia, actually that was artifact, and not ventricular tachycardia. Potassium already ordered by Dr. Garces, armored car guard, thiamine injection 100 mg b.i.d., Protonix 40 p.o. b.i.d. The patient received potassium 40 this morning, we will give another 20 today; lactulose 10 g through NG tube daily; Aricept 10 mg p.o. at bedtime; Dilantin 150 mg; 0.9% saline ran about 50 mL IV piggyback b.i.d. We will continue present therapy, and we will follow with you. We will also order an echocardiogram to evaluate LV function. Jayme Park MD
--- NOTE | 2017-07-22 03:57 | PN ---
DATE: SUBJECTIVE: The patient is 56 years old male. The patient is seen and examined at the bedside, looking comfortable. No more nausea or vomiting. The patient is on remote telemetry, went for ultrasound-guided paracentesis, due to his big ascites and his abdomen distended, by Dr. Raghu Luque. After that, started on clear liquid diet. No headache, no dizziness. No chest pain, no palpitation. No hematuria, no hematochezia. PHYSICAL EXAMINATION VITAL SIGNS: Temperature 98.6, pulse 65, respirations 17, blood pressure 125/69, pulse oximetry 93. HEENT: Head is normocephalic and atraumatic. Eyes, PERRLA. Extraocular muscles intact. Conjunctivae clear. Nose patent. Mucous membrane moist. NECK: Supple. No carotid bruits, No JVD or thyromegaly. CHEST: Bilaterally symmetrical. HEART: S1 and S2 positive. LUNGS: Clear to auscultation. ABDOMEN: Soft. Bowel sounds positive. No organomegaly. EXTREMITIES: No edema. No cyanosis. NEUROLOGIC: The patient is awake, alert. Moving all 4 extremities. No focal deficits. LABORATORY DATA: We do not have his labs today, but I reviewed old labs. MEDICATIONS: Reviewed by me. ASSESSMENT AND PLAN: Mr. Yifan Lopez is a 56-year-old male with history of pancreatic carcinoma, liver metastasis causing significant tense ascites with distended abdomen, went for paracentesis by Dr. Raghu Luque today, hypertension, diabetes mellitus, dementia, history of neurosyphilis, seizure disorder, acute encephalopathy with systemic inflammatory response syndrome with bacterial peritonitis, constipation, questionable superior mesenteric vein thrombosis history. GI is on the case. The patient was supposed to go for paracentesis, but Dr. Raghu Luque cannot get power of trial attorney , Because of medical necessity, the patient was uncomfortable due to bigger ascites and distended abdomen, getting shortness of breath, constant vomiting. Right now, we decided to give paracentesis. I agree with Dr. Raghu Luque. Procedure is done today. Gastrointestinal prophylaxis. We will follow up. Michelle Castillo MD [place]
[2017-07-22] MEDS: PHENYTOIN IVPB SCH ×3 (06:29→19:41)
[2017-07-22] MEDS: SODIUM CHLORIDE 0.9% IVPB SCH ×3 (06:29→19:41)
[2017-07-22] MEDS: Pantoprazole 40 mg EC Tab PO SCH ×2 (06:30→17:50)
[2017-07-22] MEDS: Sodium Chloride 0.45% 1,000 ML IV SCH (06:39)
[2017-07-22 08:03] LABS: BASO # 0.02 K/mm3 (0.0-2.0); BASO % 0.2 % (0.0-3.0); EOS # 0.1 (0.0-0.7); EOS % 0.8 % (1.5-5.0); GRAN # 8.46 (1.4-6.5); GRAN % 88.4 % (50.0-68.0); HEMATOCRIT 31.5 % (42.0-52.0); LYMPH # 0.2 (1.2-3.4); LYMPH % 2.5 % (22.0-35.0); MEAN CELL VOLUME 87.7 fl (80.0-105.0); MEAN CORPUSCULAR HEMOGLOBIN 28.4 pg (25.0-35.0); MEAN CORPUSCULAR HGB CONC 32.4 g/dl (31.0-37.0); MEAN PLATELET VOLUME 9.9 fl (7.0-11.0); MONO # 0.8 (0.1-0.6); MONO % 8.1 % (1.0-6.0); RED CELL DISTRIBUTION WIDTH 21.7 % (11.5-14.5); WHITE BLOOD COUNT 9.6 10^3/ul (4.5-11.0)
[2017-07-22 08:17] LABS: ALB/GLOB RATIO 1.1 (1.1-1.8); ALKALINE PHOSPHATASE 968 U/L (38-126); ALT/SGPT 39 U/L (7-56); AST/SGOT 57 U/L (17-59); BILIRUBIN,TOTAL 4.6 mg/dL (0.2-1.3); BLOOD UREA NITROGEN 2 mg/dL (7-21); CALCIUM 8.1 mg/dL (8.4-10.5); CARBON DIOXIDE 19 mmol/L (21-33); CHLORIDE 106 mmol/L (98-107); GFR AFRICAN-AMERICAN > 60; GLUCOSE,RANDOM 95 mg/dL (70-110); MAGNESIUM 1.7 mg/dL (1.7-2.2); POTASSIUM 3.1 mmol/L (3.6-5.0); SODIUM 138 mmol/L (132-148); TOTAL PROTEIN 5.7 g/dL (5.8-8.3)
[2017-07-22] MEDS ORDERED: Potassium Chloride 40 mEq/30 ml LIQ UD PO ONE ×2 (09:12→11:59)
[2017-07-22] MEDS: Lidocaine 5% Patch TD SCH (10:48)
[2017-07-22] MEDS: Thiamine 100 mg/ml Inj IM SCH ×2 (10:52→17:50)
[2017-07-22] MEDS ORDERED: Potassium Chloride 20 mEq ER Tab PO ONE ×2 (12:04→17:00)
--- NOTE | 2017-07-22 13:35 | CARD ---
APPROVED REPORT EXAM: Two-dimensional and M-mode echocardiogram with Doppler and color Doppler. INDICATION RVSP/LVFX 2D DIMENSIONS Left Atrium (2D)3.9 (1.6-4.0cm)IVSd0.9 (0.7-1.1cm) LVDd4.5 (3.9-5.9cm)PWd1.0 (0.7-1.1cm) LVDs3.1 (2.5-4.0cm)FS (%) 30.8 % LVEF (%)58.5 (>50%) M-Mode DIMENSIONS Aortic Root3.50 (2.2-3.7cm)Aortic Cusp Exc.2.10 (1.5-2.0cm) Aortic Valve AoV Peak Sxdmplmb275.0cm/Nargis Peak GR.12mmHg Mitral Valve MV E Exzrmbzp68.4cm/sMV A Lafhcodt12.7cm/sE/A ratio0.9 TDI Lateral E' Peak V14.30cm/sMedial E' Peak V9.75cm/sE/Lateral E'5.5 E/Medial E'8.0 Pulmonary Valve PV Peak Ygkvsddb66.9cm/sPV Peak Grad.2mmHg Tricuspid Valve TR Peak [id number]/sRAP [id number] Peak Gr.29mmHg [id number] LEFT VENTRICLE The left ventricle is normal size. There is normal left ventricular wall thickness. The left ventricular function is normal.EF-55-60% There is normal LV segmental wall motion. Transmitral Doppler flow pattern is Grade III-reversible restrictive diastolic dysfunction. No left ventricle thrombus noted on this study. There is no ventricular septal defect visualized. There is no left ventricular aneurysm. There is no mass noted in the left ventricle. RIGHT VENTRICLE The right ventricle is normal size. There is normal right ventricular wall thickness. The right ventricular systolic function is normal. ATRIA The left atrium size is normal. The right atrium size is normal. The interatrial septum is intact with no evidence for an atrial septal defect. AORTIC VALVE The aortic valve is thickened but opens well. There is trace aortic regurgitation. There is no aortic valvular stenosis. There is no aortic valvular vegetation. MITRAL VALVE The mitral valve is thickened but opens well. Mitral regurgitation is trace. There is no mitral valve stenosis. There is no evidence of mitral valve prolapse. TRICUSPID VALVE The tricuspid valve leaflets are thickened , but open well. There is mild tricuspid regurgitation.[id number] mmof hg. There is no tricuspid valve stenosis. There is no tricuspid valve prolapse or vegetation. PULMONIC VALVE The pulmonic valve is not well visualized. GREAT VESSELS The aortic root is normal in size. The ascending aorta is normal in size. The pulmonary artery is normal. The IVC is normal in size and collapses >50% with inspiration. PERICARDIAL EFFUSION There is small to moderate left pleural effusion. There is no pericardial effusion. <Conclusion> Normal Chamber Size/EF-55-60%. There is trace aortic regurgitation. Mitral regurgitation is trace. There is mild tricuspid regurgitation.[id number] mmof hg. There is small to moderate left pleural effusion. There is no pericardial effusion. No vegetation or thrombus noted.
--- NOTE | 2017-07-22 14:59 | PN ---
NEPHROLOGY FOLLOWUP NOTE SUBJECTIVE: A 56-year-old male with past medical history of pancreatic cancer, status post chemo and radiation, admitted due to altered mental status. Hospital course complicated by SIRS/sepsis. Nephrology consulted for oliguria, which has subsequently resolved; The patient is status post paracentesis yesterday with approximately 4 L of fluid drained; the patient reports abdominal pain improved; PHYSICAL EXAMINATION VITAL SIGNS: This afternoon, blood pressure 101/62, heart rate 63, respirations 18, temperature 99.1, O2 sat 95% on room air. GENERAL: No distress, unable to comprehend what the patient is saying. HEENT: Moist mucous membranes. RESPIRATORY: Mild rales present; otherwise, no respiratory distress. No rhonchi. HEART: S1 and S2 normal. No murmurs. GASTROINTESTINAL: Abdomen distended but soft, nontender. GENITOURINARY: No bladder distention, Mendez in place. EXTREMITIES: Mildly edematous. SKIN: Warm. No cyanosis. LABORATORY DATA: This morning, CBC: WBC 9.6, hemoglobin 10.2, hematocrit 31.5, platelets 191. Chemistry panel: Sodium 138, potassium 3.1, chloride 106, bicarb 19, BUN 2, creatinine 0.3, glucose 95, calcium 8.1, magnesium 1.7, T-bili 4.6, albumin 3.0. ASSESSMENT AND PLAN: 1. Acute kidney injury, oliguria resolved, likely due to Mendez misplacement/migration. Continue to monitor. 2. Hypernatremia, resolved with improvement of stool losses and correction of free water deficit; 3. We will discontinue IV fluids and see how the patient tolerates p.o. diet. 4. Metabolic acidosis, mainly non-gap acidosis, possibly caused by IV fluids; we will stop IV fluids and monitor. 5. Abdominal ascites. The patient is status post paracentesis with 4 L fluid removed; the patient may benefit from being on diuretics to avoid reaccumulation of fluid. Consider starting Lasix 20 mg p.o. b.i.d. and Aldactone 25 mg p.o. once daily. 6. Hypokalemia. The patient is not having as much stool losses, so we will need to look for possible renal wasting of potassium which may be seen in states of volume depletion. We will check urine lytes. We will replace potassium aggressively via p.o. form (we will avoid IV potassium unless potassium level is extremely low as the patient had a run of ventricular tachycardia and IV potassium can predispose to arrhythmia). Som Garces MD
[2017-07-22] MEDS ORDERED: Phenytoin 100 mg/2 ml Inj ONE (17:46)
[2017-07-22] MEDS: Magnesium Oxide 400 mg Tab UD PO SCH (17:50)
--- NOTE | 2017-07-22 18:14 | PN ---
DATE: SUBJECTIVE: The patient seen and examined at bedside. He is looking comfortable, more awake and alert, tolerated liquid diet. We will advance diet as tolerated. No nausea, vomiting, or diarrhea. No hematuria, no hematochezia. No chest pain. No palpitations. PHYSICAL EXAMINATION VITAL SIGNS: Blood pressure 101/62, heart rate 63, respirations 18, and temperature 99.1. HEENT: Head is normocephalic and atraumatic. Eyes, PERRLA. Extraocular muscles intact. Conjunctivae clear. Nose patent. Mucous membrane moist. NECK: Supple. No carotid bruits. No JVD or thyromegaly. CHEST: Bilaterally symmetrical. HEART: S1 and S2 positive. LUNGS: Clear to auscultation. ABDOMEN: Soft. Bowel sounds positive. No organomegaly. EXTREMITIES: No edema. No cyanosis. NEUROLOGIC: The patient is awake, alert. Moving all 4 extremities. No focal deficits. LABORATORY DATA: White blood cells 9.6, hemoglobin 10.2, hematocrit 31.5, and platelets 191. Sodium 138, potassium 3.1, BUN 2, creatinine is 0.3, and glucose 95. Total bilirubin 4.6. ASSESSMENT AND PLAN: Mr. Yifan Lopez is a 56-year-old male with acute kidney injury, oliguria resolved likely due to Mendez's misplacement/irrigation. Continue monitoring hypernatremia resolved with improvement of stool looseness and correction of free water deficit. Dr. Garces discontinued the IV fluid because the patient is now tolerating p.o. fluid. Metabolic acidosis, non-gap acidosis possibly caused by IV fluid. Abdominal ascites status post paracentesis 4 L of fluid removed, the patient may benefits being on diuretics to avoid reaccumulation of the fluid as per assistant track and field coach. He started the Lasix 40 mg p.o. b.i.d. and Aldactone 25 mg p.o. once a day. Hypokalemia, replaced. We will continue Aricept for dementia. Lactulose, potassium placement. Lidoderm for pain. Dilantin for the patient's seizures. Protonix as gastrointestinal prophylaxis. Giving thiamine, erythromycin, Zofran p.r.n. The patient has history of adenocarcinoma carcinoma of the pancreas, metastasis to the liver, history of hypertension, diabetes mellitus, neurosyphilis, acute encephalopathy with systemic inflammatory response syndrome with bacterial peritonitis. We will continue present treatment. Advance diet. We will follow up. Michelle Castillo MD
[2017-07-22 18:25] LABS: BLOOD UREA NITROGEN 2 mg/dL (7-21); CARBON DIOXIDE 22 mmol/L (21-33); CHLORIDE 104 mmol/L (98-107); GFR AFRICAN-AMERICAN > 60; GLUCOSE,RANDOM 190 mg/dL (70-110); POTASSIUM 3.1 mmol/L (3.6-5.0); SODIUM 136 mmol/L (132-148)
--- NOTE | 2017-07-22 20:08 | PN ---
DATE: 07/22/2017 This is the patient's hospital visit on medical floor. For Dr. Finch. SUBJECTIVE: The patient is a 56-year-old male, seen lying awake in bed, status post paracentesis yesterday as per Dr. Raghu Luque with 4.1 L of fluid taken out with the patient's potassium noted to be lower, today to be corrected. He is otherwise in no acute distress on this visit. OBJECTIVE/PHYSICAL EXAMINATION VITAL SIGNS: Temperature 99.1, pulse 62, respirations 18, blood pressure 101/62, pulse ox 95%. HEENT: Unremarkable. NECK: Supple. HEART: Regular rate. LUNGS: Minimally decreased breath sounds at the bases. ABDOMEN: Less distended, soft, nontender. EXTREMITIES: Faint +1 edema. NEUROLOGIC: Awake and alert, but confused. SKIN: Warm and dry with an icteric tinge to the skin and sclerae are also icteric. LABORATORY DATA: The patient's labs were done. White blood cell count of 9.6; hemoglobin 10.2; hematocrit 31.5; platelet count of 191,000 with a chem metabolic panel showing a potassium of 3.1, BUN of 2, creatinine of 0.3, non-fasting glucose 211. T-bili of 4.6, alk phose of 968. Total protein of 5.7. The patient had echocardiogram that earlier today was read as ejection fraction of 55% to 60% with [id number] left pleural effusion, no pericardial effusion. ASSESSMENT: Ascites, status post paracentesis, 4.1 L; history of pancreatic carcinoma with liver metastasis; hypertension; diabetes; dementia; seizure disorder; neurosyphilis history; systemic inflammatory response syndrome with spontaneous bacterial peritonitis. The patient improved in that respect. PLAN: After conversation with Dr. Finch is to continue his present medical regimen. We will monitor clinically and with labs and the prognosis for this patient is guarded. The patient did get albumin with considerations for further treatment as indicated. Wild Santillan MD
--- NOTE | 2017-07-22 22:03 | PN ---
REASON FOR CONSULTATION: Follow up possible ventricular tachycardia, cardiac evaluation, CA of the pancreas with metastasis (artifact). SUBJECTIVE: The patient lying flat in the bed, not in apparent distress, going for echocardiography. OBJECTIVE: Not in apparent distress. PHYSICAL EXAMINATION: VITAL SIGNS: Temperature afebrile, heart rate 60, and blood pressure 101/62. HEENT: PERRLA. Extraocular muscles intact. NECK: Supple. No carotid bruit. No thyromegaly. CHEST: Clear to auscultation. HEART: S1 and S2 regular. ABDOMEN: Soft. EXTREMITIES: Clubbing and cyanosis negative. LABORATORY DATA: Blood work as follows: WBC 9.6, hemoglobin 10.3, hematocrit 31.5, and platelet count 191. Chemistry shows sodium 130, potassium 3.0, chloride 106, carbon dioxide 19, anion gap of 16, BUN 12, and creatinine 0.3. IMPRESSION: A 56-year-old male with past medical history significant for pancreatic cancer with metastasis to the liver, admitted with altered mental status, encephalopathic, status post chemotherapy, status post radiation over the floor, transferred to third floor with artifact thought to be cardiology consult was called. Though the patient has significant electrolyte imbalance, supplemented potassium, still the patient's potassium is low. History of seizure disorder, history of bipolar disorder, history of schizophrenia, history of obstructive jaundice. No evidence of arrhythmia noted. Altered mental status reviewed by Dr. Park yesterday. RECOMMENDATIONS: Supplement aggressively potassium and keep potassium around 4. Keep magnesium around 2. Follow up echo. Echo was done. We will follow the echo results. We will follow with you. Thank you Dr. Castillo for providing the opportunity in taking care of the patient. Jayme Harris MD
--- NOTE | 2017-07-22 22:05 | PN ---
SUBJECTIVE: The patient is in bed, in no acute distress. Nontoxic. PHYSICAL EXAMINATION: VITAL SIGNS: Temperature 99, blood pressure was 101/60, respiratory rate of 18. HEENT: Unremarkable. NECK: Supple. LUNGS: Have decreased breath sounds. HEART: Normal S1 and S2. ABDOMEN: Soft, nontender. LABORATORY DATA: White count is 9.6, hemoglobin is 10, platelets of 191. BUN of 2, creatinine of 0.3. Procalcitonin is noted. Microbiology reveals blood cultures are negative. Ascitic fluid cultures are negative. No fungal element, no organisms. No growths at 24 hours. WBC is 276. WBCs are 70% of polys. Dr. Castillo's note is reviewed. Microbiology reveals all the cultures are negative. Clostridium diff is negative, antigen and toxins. ASSESSMENT AND PLAN: This is a 56-year-old male with systemic inflammatory response syndrome with status post paracentesis with negative white blood counts on paracentesis fluid and cultures negative, unlikely to be spontaneous bacterial peritonitis, acute encephalopathy in a patient with pancreatic cancer, liver metastasis, status post chemotherapy and radiation. The patient with hypertension, diabetes, dementia, history of neurosyphilis seizures, had received 9 days of Zosyn. Currently, off of antibiotics, afebrile, doing much better with a white count of 9.6. No further antibiotics. Prognosis is quite poor. Mir Blanco MD
[2017-07-23] MEDS: Pantoprazole 40 mg EC Tab PO SCH ×2 (06:13→17:49)
[2017-07-23] MEDS: PHENYTOIN IVPB SCH (06:14)
[2017-07-23] MEDS: SODIUM CHLORIDE 0.9% IVPB SCH (06:14)
[2017-07-23 07:48] LABS: ALKALINE PHOSPHATASE 814 U/L (38-126); ALT/SGPT 32 U/L (7-56); AST/SGOT 47 U/L (17-59); BILIRUBIN,TOTAL 4.7 mg/dL (0.2-1.3); CALCIUM 7.8 mg/dL (8.4-10.5); CARBON DIOXIDE 22 mmol/L (21-33); CHLORIDE 102 mmol/L (98-107); GFR AFRICAN-AMERICAN > 60; GLUCOSE,RANDOM 137 mg/dL (70-110); SODIUM 134 mmol/L (132-148); TOTAL PROTEIN 5.2 g/dL (5.8-8.3)
[2017-07-23 08:01] LABS: BLOOD UREA NITROGEN < 2 mg/dL (7-21)
[2017-07-23] MEDS: Thiamine 100 mg/ml Inj IM SCH (10:51)
[2017-07-23] MEDS: Magnesium Oxide 400 mg Tab UD PO SCH ×2 (10:52→17:49)
[2017-07-23] MEDS: Lidocaine 5% Patch TD SCH (10:52)
[2017-07-23] MEDS ORDERED: Potassium Chloride 20 mEq ER Tab PO ONE ×2 (11:58→17:00)
[2017-07-23] MEDS ORDERED: Vancomycin 1gm in NS 250ml 1 GM/250 ML BAG IVPB STA (13:37)
--- NOTE | 2017-07-23 13:39 | RAD ---
HISTORY: fever COMPARISON: Comparison chest 07/17/2017 TECHNIQUE: Chest PA and lateral FINDINGS: LUNGS: Poor inspiration with low lung volumes, crowded bronchovascular markings and mild bibasilar atelectasis. . . Suspect the tiny bilateral effusions. PLEURA: As above. No pneumothorax apparent. CARDIOVASCULAR: Cardiomegaly. OSSEOUS STRUCTURES: No significant abnormalities. VISUALIZED UPPER ABDOMEN: No gross free air seen under the diaphragmatic surfaces OTHER FINDINGS: None. IMPRESSION: Poor inspiration with low lung volumes, crowded bronchovascular markings and mild bibasilar atelectasis. . . Suspect tiny bilateral effusions.
--- NOTE | 2017-07-23 14:39 | PN ---
DATE: 07/23/2017 SUBJECTIVE: The patient is seen earlier in room 371, bed 1. No fevers. No chills. He feels comfortable. He states he had uneventful night. PHYSICAL EXAMINATION: VITAL SIGNS: temperature is 100.3, T-max is 100.9, heart rate of 113, and blood pressure is 87/50. HEENT: Unremarkable. NECK: Supple. LUNGS: Decreased breath sounds. HEART: Normal S1 and S2. ABDOMEN: Soft. LABORATORY DATA: Reveals white count of 9.6, hemoglobin of 10, and platelets of 200. BUN less than 2 and creatinine of 0.3. Urinalysis is noted, 2-5 WBCs, large number of RBCs, and peritoneal fluid is noted to have 276 WBCs and 30% of that lymphocytes and 70% are neutrophils. Microbiology reveals ascitic fluid culture, no growth. The patient's stool for C. diff from the is negative and blood cultures are negative. Review of orders reveals the patient to be off antibiotic. The patient's coagulation is 1.2. ASSESSMENT AND PLAN: A 56-year-old male with systemic inflammatory response syndrome, status post paracentesis, negative paracentesis as far as cell count and cultures are concerned and unlikely to be spontaneous bacterial peritonitis, acute encephalopathy in a patient with pancreatic cancer, liver metastasis, status post chemotherapy and radiation, history of diabetes, hypertension, dementia, neurosyphilis, seizures, has completed 9 days of Zosyn now. The patient with low-grade temperature as of 100.3, T-max of 100.9 with tachycardia. We will repeat pancultures, blood, urine, sputum, urinalysis and we will order a procalcitonin. We will order a chest x-ray and Dopplers of the lower extremities to rule out deep venous thrombosis. The patient is not looking toxic, we will hold off any antibiotics at this point and we will follow closely with you. Mir Blanco MD
[2017-07-23] MEDS ORDERED: Sodium Chloride 0.9% 1,000 ML IV SCH (15:00)
--- NOTE | 2017-07-23 15:02 | CP.PCM.PN ---
Objective - Vital Signs/Intake and Output Vital Signs (last 24 hours): Temp Pulse Resp BP Pulse Ox 100.3 F H 101 H 20 87/54 L 94 L 07/23/17 06:00 07/23/17 06:00 07/23/17 06:00 07/23/17 10:54 07/23/17 06:00 Intake and Output: 07/23/17 07/23/17 06:59 18:59 Intake Total 1510 600 Output Total 3861 700 Balance -2351 -100 - Medications Medications: Current Medications Donepezil HCl (Aricept) 10 mg PO HS [facility] Last Admin: 07/22/17 22:30 Dose: 10 mg Furosemide (Lasix) 20 mg PO BID [facility] Last Admin: 07/23/17 10:54 Dose: Not Given Phenytoin 150 mg/ Sodium (Chloride) 53 mls @ 104 mls/hr IVPB 0600,1800 [facility] Last Admin: 07/23/17 06:14 Dose: 104 mls/hr Vancomycin HCl (Vancomycin 1gm) 1 gm in 250 mls @ 167 mls/hr IVPB Q12H [facility] PRN Reason: Protocol Vancomycin HCl (Vancomycin 1gm) 1 gm in 250 mls @ 167 mls/hr IVPB STAT STA PRN Reason: Protocol Stop: 07/23/17 15:06 Lactulose (Enulose) 20 gm PO BID [facility] Last Admin: 07/23/17 10:51 Dose: 20 gm Lidocaine (Lidoderm) 1 ea TD DAILY [facility] Last Admin: 07/23/17 10:52 Dose: 1 ea Magnesium Oxide (Mag-Ox) 400 mg PO BID [facility] Stop: 07/23/17 23:59 Last Admin: 07/23/17 10:52 Dose: 400 mg Ondansetron HCl (Zofran Inj) 4 mg IVP Q6H PRN PRN Reason: Nausea/Vomiting Last Admin: 07/20/17 10:50 Dose: 4 mg Pantoprazole Sodium (Protonix Ec Tab) 40 mg PO 0600,1600 [facility] Last Admin: 07/23/17 06:13 Dose: 40 mg Potassium Chloride (K-Dur 20 Meq Er Tab) 40 meq PO ONCE ONE Stop: 07/23/17 17:01 Rifaximin (Xifaxan) 550 mg PO BID [facility] PRN Reason: Protocol Last Admin: 09/17/17 10:51 Dose: 550 mg Spironolactone (Aldactone) 25 mg PO BID [facility] Last Admin: 07/23/17 10:51 Dose: 25 mg Thiamine HCl (Vitamin B1 Inj) 100 mg IM BID [facility] Last Admin: 07/23/17 10:51 Dose: 100 mg - Labs Labs: 07/22/17 07:50 07/23/17 06:00 PT 13.2 Seconds (9.9-11.8) H 07/12/17 09:00 INR 1.22 (0.93-1.08) H 07/12/17 09:00 APTT 26.1 Seconds (23.7-30.8) 07/12/17 09:00 Assessment and Plan (1) ANA MARIA (acute kidney injury) Status: Resolved (2) Hypernatremia Status: Acute (3) Hypokalemia Status: Acute (4) Hypotension Status: Acute (5) SIRS (systemic inflammatory response syndrome) Assessment & Plan: With hypotension and low grade temp; was going to be started on diuretics to prevent recurrent ascites buildup but in setting of possible sepsis will place back on gentle IVF and hold diuretics (both lasix and aldactone); -f/u CXR -abx per ID Status: Acute
--- NOTE | 2017-07-23 17:07 | PN ---
DATE: 07/23/2017 REASON FOR CONSULTATION AND FOLLOWUP: Cardiac evaluation, ventricular tachycardia (artifact), history of pancreatic CA with mets. SUBJECTIVE: The patient denies any chest pain, denies shortness of breath, denies any palpitation. PHYSICAL EXAMINATION: GENERAL: Lying flat in the bed, not in apparent distress. VITAL SIGNS: As follows: Temperature afebrile, heart rate 90, and blood pressure 119/63. HEENT: PERRLA. Extraocular muscles intact. NECK: Supple. No carotid bruits or thyromegaly. CHEST: Clear to auscultation. HEART: S1 and S2. Regular. ABDOMEN: Soft. EXTREMITIES: Clubbing and cyanosis negative . LABORATORY DATA: Blood workup as follows: WBC 9.6, hemoglobin 10.3, hematocrit 31.8, and platelet count 191. Sodium 130, potassium 3, chloride 102, carbon dioxide 28, anion gap of 13, BUN 12, creatinine 0.3, total protein 5.12, albumin 2.7, albumin-globulin ratio 1. IMPRESSION: Severe hypokalemia, protein-calorie malnutrition which was not present on admission, anemia, 10 beats of ventricular tachycardia beats and artifact, no real ventricular tachycardia. The patient had echocardiography done yesterday that showed normal chamber size, ejection fraction 55% to 60%, trace aortic regurgitation, trace mitral regurgitation, [id number] tricuspid regurgitation, right ventricular systolic pressure of 39, [id number] left pleural effusion, no pericardial effusion. The consult was called for the ventricular tachycardia, it is actually not a ventricular tachycardia, it is artifact; history of pancreatic carcinoma with metastasis that resulted in metastatic encephalopathy. RECOMMENDATIONS: Aggressively supplement of electrolytes. Also the patient has history of obstructive jaundice because of , history of bipolar disorder, history of schizophrenia, history of seizure disorder. Increase nutritional support. Supplement electrolytes. We will check electrolytes in the morning. CVS status stable. Overall, the patient's long-term prognosis is guarded. Consider DNR. We will give 8 mEq of potassium in addition to K-Dur he is getting because the patient is also getting Lasix as well. We will also increase nutritional supplement to increase protein-calorie malnutrition. At least moderate protein-calorie malnutrition was not present on admission. We will add Ensure Pudding supplement. Jayme Harris MD
--- NOTE | 2017-07-23 17:43 | US ---
HISTORY: Leg pain and swelling. Evaluate for DVT PHYSICIAN(S): Raghu Luque MD. TECHNIQUE: Duplex sonography and color-flow Doppler with graded compression were used to evaluate the deep venous systems of both lower extremities. FINDINGS: There is adherent, partially occlusive thrombus noted in the left common femoral vein. The left femoral vein, popliteal vein, and visualized tibial veins are normal and compressible. There is no sonographic evidence for deep venous thrombosis in the visualized segments of the right lower extremity. IMPRESSION: Adherent, partially occlusive thrombus the left common femoral vein.
--- NOTE | 2017-07-23 17:50 | PN ---
DATE: 07/23/2017 This is the patient's hospital visit on medical floor. For Dr. Finch. SUBJECTIVE: The patient is a 56-year-old male, seen lying in bed, in no acute distress, status post paracentesis as per Dr. Raghu Luque with the patient known to suffer from pancreatic carcinoma with liver metastasis along with dementia history. He is now status post probable spontaneous bacterial peritonitis with sepsis for which he was comatose and he is now more interactive. OBJECTIVE: VITAL SIGNS: Temperature 100.3, pulse 101, respirations 20, blood pressure 91/55, and pulse ox 94%. PHYSICAL EXAMINATION: HEENT: Unremarkable. NECK: Supple. HEART: Tachy rate, regular rhythm. LUNGS: Decreased breath sounds at the bases. ABDOMEN: Soft, minimal tenderness to general palpation. EXTREMITIES: Faint +1 edema. NEUROLOGIC: Awake and alert with confusion. SKIN: Warm and dry. EYES: Sclerae are noted to be icteric. LABORATORY DATA: The patient's labs were done yesterday except for the chem panel, which showed a total bilirubin of 4.7, potassium 3.0 with a non-fasting glucose of 161, calcium is 7.8, alk phos 814. The patient had an ultrasound of extremities today, which was not read yet. The patient had a chest x-ray done earlier today which was read as poor inspiration low-lung volume, carotid bronchovascular markings, bibasilar atelectasis mild, suspect tiny bilateral effusions. ASSESSMENT: Ascites, status post paracentesis of 4.1 L; history of pancreatic carcinoma with liver metastasis; dementia; hypertension; diabetes; seizure disorder; neurosyphilis history; systemic inflammatory response syndrome with sepsis. PLAN: After conversation with Dr. Finch, we will check his labs in the morning with replenishment of his electrolyte imbalances as per his primary medical doctor and Dr. Garces, renal. Prognosis for this patient is guarded. Wild Santillan MD
--- NOTE | 2017-07-23 21:48 | PN ---
DATE: SUBJECTIVE: The patient is 56 years old male. The patient seen and examined at bedside. Looking comfortable. No headache. No dizziness. No chest pain. No palpitations. Awake and alert. Moving all 4 extremities. PHYSICAL EXAMINATION: VITAL SIGNS: Temperature 99.2, T-max 100.3, pulse 95, respiratory rate 20, blood pressure 112/73. HEENT: Head is normocephalic and atraumatic. Eyes, PERRLA. Extraocular muscles intact. Conjunctivae clear. Nose patent. NECK: Supple. No carotid bruits, JVD, or thyromegaly. CHEST: Bilaterally symmetrical. HEART: S1 and S2 positive. LUNGS: Clear to auscultation. ABDOMEN: Soft. Bowel sounds positive. No organomegaly. EXTREMITIES: No edema. No cyanosis. NEUROLOGIC: The patient is awake, alert. Moving all 4 extremities. No focal deficits. MEDICATIONS: Aldactone, Aricept, lactulose, Lasix, Lidoderm, magnesium oxide, Dilantin, pantoprazole, NS, vancomycin,thiamine, rifaximine, and Zofran. LABORATORY DATA: White blood cells 9.6, hemoglobin 10.2, hematocrit 31.5, and platelets 191. Sodium 134, potassium 3.0, BUN 2, creatinine 0.3, and glucose 261, 252, 161. AST 137, calcium is 7.8. ASSESSMENT AND PLAN: Mr. Yifan Lopez is a 56-year-old male with anemia; hypokalemia - replaced; uncontrolled diabetes mellitus, hypocalcemia, abnormal liver function test. Extremity ultrasound is done, results are pending. Systemic inflammatory response syndrome, status post pancreatitis, pancreatic cancer, negative paracentesis so far as cell count and cultures are concerned,unlikely to be spontaneous bacterial peritonitis, history of acute encephalopathy; pancreatic cancer with liver metastasis, status post chemotherapy and radiation therapy; dementia, neurosyphilis, seizures, completing day #9 of Zosyn. The patient is having low-grade fever of 100.3 with tachycardia. Pancultures are done. Doppler of lower extremity done, results are pending. Appreciated Dr. Blanco, Dr. Harris, Dr. Garces and Dr. Adams's input. Gastrointestinal and deep venous thrombosis prophylaxis. Repeat labs. We will follow up. Michelle Castillo MD
[2017-07-23] MEDS ORDERED: Enoxaparin 60 mg Syringe SC ONE (22:09)
[2017-07-23] MEDS: Vancomycin 1gm in NS 250ml 1 GM/250 ML BAG IVPB SCH (22:49)
--- NOTE | 2017-07-24 02:17 | PN ---
SUBJECTIVE: This patient was seen and evaluated earlier. Discussed with nursing staff. The patient did have episodes of vomiting and not able to tolerate the solid food with the increased abdominal distension. PHYSICAL EXAMINATION: VITAL SIGNS: On examination; temperature afebrile, T-max 100.3, blood pressure 112/73, pulse 86, respiration 20. HEENT: Jaundiced. NECK: Supple. HEART: S1 and S2 heard. LUNGS: Reduced air entry. Few scattered rales present. ABDOMEN: Soft. Distended. Bowel sounds are present. EXTREMITIES: Mild edema present. NEUROLOGIC: Alert, moves all the extremities. LABORATORY DATA: No recent labs today. IMPRESSION AND PLAN: This is a 56-year-old patient with metastatic pancreatic cancer, locally advanced tumor involving the portal vein and superior mesenteric vein area with status post chemotherapy, now admitted with sepsis. The patient has ascites, status post paracentesis. The patient has recurrence of the abdominal distension, unable to keep the solid down. The patient has a history of sepsis, probable cholangitis to be considered. Further workup including the ERCP will be discussed with the patient's legal guardian. In view of this locally advanced disease, the aggressive nature of the workup has to be discussed with the power of finance attorney who is the state appointed legal guardian. Meanwhile, the plan is to continue the aggressive supportive care. Harjeet Guerrero MD
[2017-07-24] MEDS: Pantoprazole 40 mg EC Tab PO SCH ×2 (06:30→17:11)
[2017-07-24] MEDS: PHENYTOIN IVPB SCH ×2 (06:30→18:01)
[2017-07-24] MEDS: SODIUM CHLORIDE 0.9% IVPB SCH ×2 (06:30→18:01)
[2017-07-24 07:09] LABS: EOS % 0.3 % (1.5-5.0); GRAN # 11.79 (1.4-6.5); GRAN % 93.9 % (50.0-68.0); HEMATOCRIT 27.2 % (42.0-52.0); LYMPH # 0.3 (1.2-3.4); LYMPH % 2.2 % (22.0-35.0); MEAN CELL VOLUME 86.9 fl (80.0-105.0); MEAN CORPUSCULAR HEMOGLOBIN 28.1 pg (25.0-35.0); MEAN CORPUSCULAR HGB CONC 32.4 g/dl (31.0-37.0); MEAN PLATELET VOLUME 9.9 fl (7.0-11.0); MONO # 0.5 (0.1-0.6); MONO % 3.6 % (1.0-6.0); PLATELET COUNT 140 10^3/uL (120.0-450.0); RED CELL DISTRIBUTION WIDTH 23.1 % (11.5-14.5); WHITE BLOOD COUNT 12.6 10^3/ul (4.5-11.0)
[2017-07-24 07:34] LABS: ALKALINE PHOSPHATASE 684 U/L (38-126); ALT/SGPT 32 U/L (7-56); AST/SGOT 38 U/L (17-59); BLOOD UREA NITROGEN 2 mg/dL (7-21); CALCIUM 7.7 mg/dL (8.4-10.5); CARBON DIOXIDE 24 mmol/L (21-33); CHLORIDE 100 mmol/L (98-107); GFR AFRICAN-AMERICAN > 60; GLUCOSE,RANDOM 236 mg/dL (70-110); MAGNESIUM 1.7 mg/dL (1.7-2.2); PHOSPHOROUS 1.5 mg/dL (2.5-4.5); POTASSIUM 3.1 mmol/L (3.6-5.0); SODIUM 133 mmol/L (132-148); TOTAL PROTEIN 5.3 g/dL (5.8-8.3)
--- NOTE | 2017-07-24 08:21 | PCM.URO ---
Urology Progress Note - Subjective Hematuria: Yes (now clear) - Objective Lab Results Last 24 Hours: Laboratory Results - last 24 hr 07/21/17 07/23/17 07/23/17 12:41 11:45 11:57 WBC RBC Hgb Hct MCV MCH MCHC RDW Plt Count MPV Gran % Lymph % (Auto) Bartholomew % (Auto) Eos % (Auto) Baso % (Auto) Gran # Lymph # Bartholomew # Eos # Baso # Sodium Potassium Chloride Carbon Dioxide Anion Gap BUN Creatinine Est GFR ( Amer) Est GFR (Non-Af Amer) POC Glucose (mg/dL) 256 H Random Glucose Calcium Phosphorus Magnesium Total Bilirubin AST ALT Alkaline Phosphatase Total Protein Albumin Globulin Albumin/Globulin Ratio Procalcitonin 0.96 H Peritoneal Lipase see note 07/23/17 07/23/17 07/24/17 15:55 21:07 06:55 WBC 12.6 H D RBC 3.13 L Hgb 8.8 L Hct 27.2 L MCV 86.9 MCH 28.1 MCHC 32.4 RDW 23.1 H Plt Count 140 MPV 9.9 Gran % 93.9 H Lymph % (Auto) 2.2 L Bartholomew % (Auto) 3.6 Eos % (Auto) 0.3 L Baso % (Auto) 0.0 Gran # 11.79 H Lymph # 0.3 L Bartholomew # 0.5 Eos # 0.0 Baso # 0.00 Sodium Potassium Chloride Carbon Dioxide Anion Gap BUN Creatinine Est GFR ( Amer) Est GFR (Non-Af Amer) POC Glucose (mg/dL) 261 H 205 H Random Glucose Calcium Phosphorus Magnesium Total Bilirubin AST ALT Alkaline Phosphatase Total Protein Albumin Globulin Albumin/Globulin Ratio Procalcitonin Peritoneal Lipase 07/24/17 07/24/17 06:55 07:11 WBC RBC Hgb Hct MCV MCH MCHC RDW Plt Count MPV Gran % Lymph % (Auto) Bartholomew % (Auto) Eos % (Auto) Baso % (Auto) Gran # Lymph # Bartholomew # Eos # Baso # Sodium 133 Potassium 3.1 L Chloride 100 Carbon Dioxide 24 Anion Gap 12 BUN 2 L Creatinine 0.3 L Est GFR ( Amer) > 60 Est GFR (Non-Af Amer) > 60 POC Glucose (mg/dL) 249 H Random Glucose 236 H Calcium 7.7 L Phosphorus 1.5 L Magnesium 1.7 Total Bilirubin 5.0 H AST 38 ALT 32 Alkaline Phosphatase 684 H Total Protein 5.3 L Albumin 2.6 L Globulin 2.7 Albumin/Globulin Ratio 1.0 L Procalcitonin Peritoneal Lipase Intake & Output: Intake & Output 07/23/17 07/24/17 07/24/17 18:59 06:59 18:59 Intake Total 600 780 Output Total 700 1500 Balance -100 -720 Intake: Oral 600 780 Output: Urine 700 1500 Urethral (Niño) 700 1500 Other: # Bowel Movements 6 6 Vital Signs: Vital Signs - 24 hr 07/23/17 07/23/17 07/23/17 10:00 10:54 17:08 Temperature 99.2 F Pulse Rate 107 H 95 H Respiratory 20 Rate Blood Pressure 87/54 L 112/73 O2 Sat by Pulse 98 Oximetry 07/23/17 18:00 Temperature Pulse Rate 89 Respiratory Rate Blood Pressure O2 Sat by Pulse Oximetry - Plan Additional Information: gu plans : from gu standpoint can remove niño at any time
--- NOTE | 2017-07-24 09:07 | US ---
PROCEDURE: Ultrasound guided paracentesis. HISTORY: Cirrhosis. Ascites. Abdominal pain and distension. Needs paracentesis. PHYSICIAN(S): Raghu Luque MD. TECHNIQUE: The relative risks and indications for the procedure were explained to the patient and informed written consent obtained. Sonography of the abdomen was performed in a supine position. This revealed a moderate amount of non-loculated ascites, greatest in the right lower quadrant. A puncture site was selected and the area was prepped and draped in the usual sterile fashion. 1% Xylocaine was used to anesthetize the skin and soft tissues. A 7 [place] paracentesis catheter was trocared into the right lower quadrantand 4100 cc of clear straw-colored fluid aspirated. The appropriate labs were sent. IMPRESSION: Ultrasound-guided paracentesis in the right lower quadrant. 4100 cc of fluid were aspirated. Labs were sent
[2017-07-24 09:35] LABS: URINE BILIRUBIN LARGE (NEGATIVE); URINE BLOOD MODERATE (NEGATIVE); URINE GLUCOSE (UA) 100 mg/dL (NEGATIVE); URINE KETONE NEGATIVE (NEGATIVE); URINE LEUKOCYTE ESTERASE TRACE Leu/uL (NEGATIVE); URINE PROTEIN TRACE mg/dL (<30 mg/dL); URINE UROBILINOGEN 0.2 E.U./dL (<1 E.U./dL)
[2017-07-24 09:36] LABS: URINE APPEARANCE SL CLOUDY (CLEAR); URINE COLOR BROWN (YELLOW)
[2017-07-24 09:38] LABS: URINE BACTERIA TRACE (NEG); URINE RBC 0 - 2 /hpf (0-2); URINE WBC NEGATIVE /hpf (0-6)
[2017-07-24] MEDS: Thiamine 100 mg/ml Inj IM SCH ×2 (09:58→17:11)
[2017-07-24] MEDS: Lidocaine 5% Patch TD SCH (09:58)
[2017-07-24] MEDS: Calcium-Vit D 250 mg-125 Units Tab UD PO SCH (09:58)
[2017-07-24] MEDS: Vancomycin 1gm in NS 250ml 1 GM/250 ML BAG IVPB SCH ×2 (10:01→22:35)
[2017-07-24 10:14] LABS: ANISOCYTOSIS SLIGHT; NEUTROPHIL 95 % (50.0-70.0); PLATELET ESTIMATE NORMAL (NORMAL)
[2017-07-24 10:15] LABS: TOXIC GRANULATION SLIGHT
[2017-07-24] MEDS ORDERED: Potassium Chloride 40 mEq/30 ml LIQ UD PO ONE (10:20)
--- NOTE | 2017-07-24 11:18 | CP.PCM.PN ---
Subjective - Date & Time of Evaluation Date of Evaluation: 07/24/17 Time of Evaluation: 11:15 - Subjective Subjective: Patient reportedly having diarrhea this weekend (not quantified); new L common femoral DVT; Objective - Vital Signs/Intake and Output Vital Signs (last 24 hours): Temp Pulse Resp BP Pulse Ox 100.9 F H 105 H 20 110/67 96 07/24/17 08:54 07/24/17 08:54 07/24/17 08:54 07/24/17 08:54 07/24/17 08:54 Intake and Output: 07/24/17 07/24/17 06:59 18:59 Intake Total 780 Output Total 1500 Balance -720 - Medications Medications: Current Medications Calcium/Vitamin D (Oscal-D 250 Mg-125 Units Tab) 1 tab PO DAILY [facility] Last Admin: 07/24/17 09:58 Dose: 1 tab Donepezil HCl (Aricept) 10 mg PO HS [facility] Last Admin: 07/23/17 22:47 Dose: 10 mg Furosemide (Lasix) 20 mg PO BID [facility] Last Admin: 07/23/17 10:54 Dose: Not Given Phenytoin 150 mg/ Sodium (Chloride) 53 mls @ 104 mls/hr IVPB 0600,1800 [facility] Last Admin: 07/24/17 06:30 Dose: 104 mls/hr Vancomycin HCl (Vancomycin 1gm) 1 gm in 250 mls @ 167 mls/hr IVPB Q12H [facility] PRN Reason: Protocol Last Admin: 07/24/17 10:01 Dose: 167 mls/hr Potassium Chloride 20 meq/ (Sodium Chloride) 1,010 mls @ 60 mls/hr IV .[id number] [facility] Lactulose (Enulose) 20 gm PO BID [facility] Last Admin: 07/24/17 09:58 Dose: 20 gm Lidocaine (Lidoderm) 1 ea TD DAILY [facility] Last Admin: 07/24/17 09:58 Dose: 1 ea Ondansetron HCl (Zofran Inj) 4 mg IVP Q6H PRN PRN Reason: Nausea/Vomiting Last Admin: 07/20/17 10:50 Dose: 4 mg Pantoprazole Sodium (Protonix Ec Tab) 40 mg PO 0600,1600 [facility] Last Admin: 07/24/17 06:30 Dose: 40 mg Rifaximin (Xifaxan) 550 mg PO BID [facility] PRN Reason: Protocol Last Admin: 07/24/17 09:58 Dose: 550 mg Spironolactone (Aldactone) 25 mg PO BID [facility] Last Admin: 07/23/17 10:51 Dose: 25 mg Thiamine HCl (Vitamin B1 Inj) 100 mg IM BID [facility] Last Admin: 07/24/17 09:58 Dose: 100 mg - Labs Labs: 07/24/17 06:55 07/24/17 06:55 PT 13.2 Seconds (9.9-11.8) H 07/12/17 09:00 INR 1.22 (0.93-1.08) H 07/12/17 09:00 APTT 26.1 Seconds (23.7-30.8) 07/12/17 09:00 - Constitutional Appears: Non-toxic, No Acute Distress - Head Exam Head Exam: NORMAL INSPECTION - ENT Exam ENT Exam: Mucous Membranes Moist - Respiratory Exam Respiratory Exam: Wheezes Additional comments: R basal rales; mild exp wheezes; - Cardiovascular Exam Cardiovascular Exam: RRR, +S1, +S2 - GI/Abdominal Exam GI & Abdominal Exam: Distended, Soft. absent: Tenderness - Extremities Exam Additional comments: mild/moderate b/l leg edema; - Neurological Exam Neurological Exam: Alert, Awake - Psychiatric Exam Psychiatric exam: Normal Affect, Normal Mood - Skin Skin Exam: Normal Color, Warm. absent: Cyanosis Assessment and Plan (1) ANA MARIA (acute kidney injury) Status: Resolved (2) Hypernatremia Status: Resolved (3) Hypokalemia Assessment & Plan: persistent in the setting of stool losses; adding 20 meq/L KCl to IVF in addition to PO supplementation; Status: Acute (4) Hypotension Assessment & Plan: Improved; continue on gentle IVF (NS at 60 cc/hr); Status: Acute (5) SIRS (systemic inflammatory response syndrome) Assessment & Plan: Agree with sending stool for C diff; will send vanco trough tonight before 4th dose; Status: Acute
--- NOTE | 2017-07-24 12:07 | CP.PCM.PN ---
<Vale Lo - Last Filed: 07/24/17 17:30> Subjective - Date & Time of Evaluation Date of Evaluation: 07/24/17 Time of Evaluation: 09:45 - Subjective Subjective: S&E at bedside, chart reviewed, awake and alert. No reported BM this am. Had loose BM yesterday. No overt GI bleeding. (+) abdominal distention. Objective - Vital Signs/Intake and Output Vital Signs (last 24 hours): Temp Pulse Resp BP Pulse Ox 100.9 F H 105 H 20 110/67 96 07/24/17 08:54 07/24/17 08:54 07/24/17 08:54 07/24/17 08:54 07/24/17 08:54 Intake and Output: 07/24/17 07/24/17 06:59 18:59 Intake Total 780 Output Total 1500 Balance -720 - Medications Medications: Current Medications Calcium/Vitamin D (Oscal-D 250 Mg-125 Units Tab) 1 tab PO DAILY [facility] Last Admin: 07/24/17 09:58 Dose: 1 tab Donepezil HCl (Aricept) 10 mg PO HS [facility] Last Admin: 07/23/17 22:47 Dose: 10 mg Furosemide (Lasix) 20 mg PO BID [facility] Last Admin: 07/23/17 10:54 Dose: Not Given Phenytoin 150 mg/ Sodium (Chloride) 53 mls @ 104 mls/hr IVPB 0600,1800 [facility] Last Admin: 07/24/17 06:30 Dose: 104 mls/hr Vancomycin HCl (Vancomycin 1gm) 1 gm in 250 mls @ 167 mls/hr IVPB Q12H [facility] PRN Reason: Protocol Last Admin: 07/24/17 10:01 Dose: 167 mls/hr Potassium Chloride 20 meq/ (Sodium Chloride) 1,010 mls @ 60 mls/hr IV .[id number] [facility] Lactulose (Enulose) 20 gm PO BID [facility] Last Admin: 07/24/17 09:58 Dose: 20 gm Lidocaine (Lidoderm) 1 ea TD DAILY [facility] Last Admin: 07/24/17 09:58 Dose: 1 ea Ondansetron HCl (Zofran Inj) 4 mg IVP Q6H PRN PRN Reason: Nausea/Vomiting Last Admin: 07/20/17 10:50 Dose: 4 mg Pantoprazole Sodium (Protonix Ec Tab) 40 mg PO 0600,1600 [facility] Last Admin: 07/24/17 06:30 Dose: 40 mg Rifaximin (Xifaxan) 550 mg PO BID [facility] PRN Reason: Protocol Last Admin: 07/24/17 09:58 Dose: 550 mg Spironolactone (Aldactone) 25 mg PO BID [facility] Last Admin: 07/23/17 10:51 Dose: 25 mg Thiamine HCl (Vitamin B1 Inj) 100 mg IM BID [facility] Last Admin: 07/24/17 09:58 Dose: 100 mg Vancomycin HCl (Vancocin 25 Mg/Ml (Oral Use)) 125 mg PO QID [facility] PRN Reason: Protocol - Labs Labs: 07/24/17 06:55 07/24/17 06:55 PT 13.2 Seconds (9.9-11.8) H 07/12/17 09:00 INR 1.22 (0.93-1.08) H 07/12/17 09:00 APTT 26.1 Seconds (23.7-30.8) 07/12/17 09:00 - Constitutional Appears: No Acute Distress - Head Exam Head Exam: NORMOCEPHALIC - Eye Exam Eye Exam: Scleral icterus - ENT Exam ENT Exam: Mucous Membranes Moist - Neck Exam Neck Exam: Normal Inspection - Respiratory Exam Respiratory Exam: NORMAL BREATHING PATTERN. absent: Respiratory Distress - Cardiovascular Exam Cardiovascular Exam: +S1, +S2 - GI/Abdominal Exam GI & Abdominal Exam: Distended, Soft, Normal Bowel Sounds. absent: Guarding, Rebound - Extremities Exam Extremities Exam: Pedal Edema. absent: Calf Tenderness, Normal Capillary Refill - Neurological Exam Neurological Exam: Alert, Altered (confused at times), Awake - Skin Skin Exam: Dry, Warm Assessment and Plan - Assessment and Plan (Free Text) Assessment: ASSESSMENT: 56-year-old male with PMH Pancreatic Cancer w/ metastasis, superior mesenteric vein thrombus admitted for altered mental status Colitis, cdiff negative Left leg DVT, received dose Lovenox Abdominal Ascites, s/p paracentesis Hepatic encephalopathy Sepsis Elevated LFT, r/o stent obstruction, ct scan from 06/2017 films were reviewed w/ Dr. 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 Wilson. <Harjeet Guerrero V - Last Filed: 07/24/17 20:32> Objective - Vital Signs/Intake and Output Vital Signs (last 24 hours): Temp Pulse Resp BP Pulse Ox 98.2 F 84 20 95/66 L 98 07/24/17 16:00 07/24/17 18:00 07/24/17 16:00 07/24/17 16:00 07/24/17 16:00 Intake and Output: 07/24/17 07/25/17 18:59 06:59 Intake Total 600 Output Total 800 Balance -200 - Medications Medications: Current Medications Calcium/Vitamin D (Oscal-D 250 Mg-125 Units Tab) 1 tab PO DAILY [facility] Last Admin: 07/24/17 09:58 Dose: 1 tab Donepezil HCl (Aricept) 10 mg PO HS [facility] Last Admin: 07/23/17 22:47 Dose: 10 mg Enoxaparin Sodium (Lovenox) 80 mg SC Q12H [facility] PRN Reason: Protocol Last Admin: 07/24/17 17:12 Dose: 80 mg Furosemide (Lasix) 20 mg PO BID [facility] Last Admin: 07/23/17 10:54 Dose: Not Given Phenytoin 150 mg/ Sodium (Chloride) 53 mls @ 104 mls/hr IVPB 0600,1800 [facility] Last Admin: 07/24/17 18:01 Dose: 104 mls/hr Vancomycin HCl (Vancomycin 1gm) 1 gm in 250 mls @ 167 mls/hr IVPB Q12H [facility] PRN Reason: Protocol Last Admin: 07/24/17 10:01 Dose: 167 mls/hr Potassium Chloride 20 meq/ (Sodium Chloride) 1,010 mls @ 60 mls/hr IV .[id number] [facility] Last Admin: 07/24/17 12:38 Dose: 60 mls/hr Cefepime HCl (Maxipime 1gm) 1 gm in 100 mls @ 100 mls/hr IVPB Q12 [facility] PRN Reason: Protocol Insulin Human Regular (Humulin R Low) 0 units SC ACHS [facility] PRN Reason: Protocol Last Admin: 07/24/17 17:13 Dose: 2 units Lactulose (Enulose) 20 gm PO BID [facility] Last Admin: 07/24/17 17:11 Dose: 20 gm Lidocaine (Lidoderm) 1 ea TD DAILY [facility] Last Admin: 07/24/17 09:58 Dose: 1 ea Ondansetron HCl (Zofran Inj) 4 mg IVP Q6H PRN PRN Reason: Nausea/Vomiting Last Admin: 07/20/17 10:50 Dose: 4 mg Pantoprazole Sodium (Protonix Ec Tab) 40 mg PO 0600,1600 [facility] Last Admin: 07/24/17 17:11 Dose: 40 mg Rifaximin (Xifaxan) 550 mg PO BID [facility] PRN Reason: Protocol Last Admin: 07/24/17 17:12 Dose: 550 mg Spironolactone (Aldactone) 25 mg PO BID [facility] Last Admin: 07/23/17 10:51 Dose: 25 mg Thiamine HCl (Vitamin B1 Inj) 100 mg IM BID [facility] Last Admin: 07/24/17 17:11 Dose: 100 mg Vancomycin HCl (Vancocin 25 Mg/Ml (Oral Use)) 125 mg PO QID [facility] PRN Reason: Protocol Last Admin: 07/24/17 17:11 Dose: 125 mg - Labs Labs: 07/24/17 06:55 07/24/17 06:55 PT 13.2 Seconds (9.9-11.8) H 07/12/17 09:00 INR 1.22 (0.93-1.08) H 07/12/17 09:00 APTT 26.1 Seconds (23.7-30.8) 07/12/17 09:00 Attending/Attestation - Attestation I have personally seen and examined this patient.: Yes I have fully participated in the care of the patient.: Yes I have reviewed all pertinent clinical information, including history, physical exam and plan: Yes Notes (Text): This is an addendum to GI progress report dictated by Vale Lo APN.The patient was seen and examined earlier. Medical records, lab studies, imagings were reviewed. Last 24 hours events reviewed. Agreed with the above treatment plan as outlined in Vale Lo NP's notes the with the addition of the following on examination abdomen softly distended Doppler studies revealed DVT of common femoral. Patient presently on Lovenox the patient has advanced pancreatic cancer with involvement of the portal vein and superior mesenteric vein possibly liver metastases Sepsis Status post metal stent placement questionable partial obstruction due to database in the distal end of CBD CT showed a thickened colonic mucosa suggestive possible colitis rule out C. difficile stool for C. difficile was negative but patient did have the mucus stool some trace of blood suggesting a possible colitis rule out C. difficile . Patient is on by mouth vancomycin now Hepatitic encephalopathy on rifaximin and lactulose Patient is high risk for any adverse endoscopy procedure now. Patient may need to be intubated patient is on Lovenox for DVT Palliative care /advanced care Planning consult reviewed Will discuss with the patient's guardian prior to considering any advanced GI procedure as he is a high-risk patient 07/24/17 20:26
--- NOTE | 2017-07-24 13:44 | CP.PCM.CON ---
History of Present Illness - History of Present Illness History of Present Illness: Palliative consult requested by Dr Chun Castillo Reason: Goals of care 56 year old male with history of advanced pancreatic cancer and dementia who presented with altered mental status. Work up revealed leukocystosis and elevated lactate. Code sepsis initiated.He was admitted with ascites,hepatic encephalopathy, SIRS, ANA MARIA and sepsis. PMHx: metastatic pancreatic cancer, dementia, neurosyphilis, asthma, schizophrenia,seizure disorder, anemia, hypokalemia, uncontrolled DM, hypocalcemia, pancreatitis. Social History: Former smoker. Resident of [facility] . Advance Care Planning: The patient has a legal guardian, David Worley Esq.[phone] or Public Guardian Office [phone]. Review of Systems: As per HPI, patient is altered limited review. Past Patient History - Infectious Disease Hx of Infectious Diseases: None - Tetanus Immunizations Tetanus Immunization: Unknown - Past Social History Smoking Status: Former Smoker - CARDIAC Hx Cardiac Disorders: Yes Hx Hypertension: Yes - PULMONARY Hx Respiratory Disorders: Yes Hx Asthma: Yes Hx Tuberculosis: No - NEUROLOGICAL Hx Neurological Disorder: Yes Hx Dementia: Yes Hx Seizures: Yes - HEENT Hx HEENT Problems: No - RENAL Hx Chronic Kidney Disease: No - ENDOCRINE/METABOLIC Hx Endocrine Disorders: Yes Hx Diabetes Mellitus Type 1: Yes Hx Hypothyroidism: Yes - HEMATOLOGICAL/ONCOLOGICAL Hx Blood Disorders: Yes Hx Cancer: Yes (pancreatic) - INTEGUMENTARY Hx Dermatological Problems: No - MUSCULOSKELETAL/RHEUMATOLOGICAL Hx Musculoskeletal Disorders: Yes Hx Falls: Yes - GASTROINTESTINAL Hx Gastrointestinal Disorders: Yes Other/Comment: pancreatic CA - GENITOURINARY/GYNECOLOGICAL Hx Genitourinary Disorders: No Hx Sexually Transmitted Disorders: No - PSYCHIATRIC Hx Psychophysiologic Disorder: No Hx Substance Use: No - SURGICAL HISTORY Hx Surgeries: Yes - ANESTHESIA Hx Anesthesia: Yes Meds Allergies/Adverse Reactions: Allergies Allergy/AdvReac Type Severity Reaction Status Date / Time No Known Allergies Allergy Verified 07/11/17 10:17 - Medications Medications: Current Medications Calcium/Vitamin D (Oscal-D 250 Mg-125 Units Tab) 1 tab PO DAILY [facility] Last Admin: 07/24/17 09:58 Dose: 1 tab Donepezil HCl (Aricept) 10 mg PO HS [facility] Last Admin: 07/23/17 22:47 Dose: 10 mg Furosemide (Lasix) 20 mg PO BID [facility] Last Admin: 07/23/17 10:54 Dose: Not Given Phenytoin 150 mg/ Sodium (Chloride) 53 mls @ 104 mls/hr IVPB 0600,1800 [facility] Last Admin: 07/24/17 06:30 Dose: 104 mls/hr Vancomycin HCl (Vancomycin 1gm) 1 gm in 250 mls @ 167 mls/hr IVPB Q12H [facility] PRN Reason: Protocol Last Admin: 07/24/17 10:01 Dose: 167 mls/hr Potassium Chloride 20 meq/ (Sodium Chloride) 1,010 mls @ 60 mls/hr IV .[id number] [facility] Last Admin: 07/24/17 12:38 Dose: 60 mls/hr Insulin Human Regular (Humulin R Low) 0 units SC ACHS [facility] PRN Reason: Protocol Lactulose (Enulose) 20 gm PO BID [facility] Last Admin: 07/24/17 09:58 Dose: 20 gm Lidocaine (Lidoderm) 1 ea TD DAILY [facility] Last Admin: 07/24/17 09:58 Dose: 1 ea Ondansetron HCl (Zofran Inj) 4 mg IVP Q6H PRN PRN Reason: Nausea/Vomiting Last Admin: 07/20/17 10:50 Dose: 4 mg Pantoprazole Sodium (Protonix Ec Tab) 40 mg PO 0600,1600 [facility] Last Admin: 07/24/17 06:30 Dose: 40 mg Rifaximin (Xifaxan) 550 mg PO BID [facility] PRN Reason: Protocol Last Admin: 07/24/17 09:58 Dose: 550 mg Spironolactone (Aldactone) 25 mg PO BID [facility] Last Admin: 07/23/17 10:51 Dose: 25 mg Thiamine HCl (Vitamin B1 Inj) 100 mg IM BID [facility] Last Admin: 07/24/17 09:58 Dose: 100 mg Vancomycin HCl (Vancocin 25 Mg/Ml (Oral Use)) 125 mg PO QID [facility] PRN Reason: Protocol Physical Exam - Constitutional Appears: No Acute Distress, Chronically Ill - Head Exam Head Exam: NORMAL INSPECTION - Eye Exam Eye Exam: PERRL, Scleral icterus - ENT Exam ENT Exam: Mucous Membranes Moist - Neck Exam Neck exam: Positive for: Normal Inspection - Respiratory Exam Respiratory Exam: Clear to Auscultation Bilateral, NORMAL BREATHING PATTERN - Cardiovascular Exam Cardiovascular Exam: REGULAR RHYTHM, +S1, +S2 - GI/Abdominal Exam GI & Abdominal Exam: Distended, Normal Bowel Sounds, Soft - Extremities Exam Extremities exam: Positive for: pedal edema, pedal pulses present - Back Exam Back exam: NORMAL INSPECTION - Neurological Exam Neurological exam: Altered Results - Vital Signs Recent Vital Signs: Last Vital Signs Temp 100.9 F H 07/24/17 08:54 Pulse 105 H 07/24/17 08:54 Resp 20 07/24/17 08:54 BP 110/67 07/24/17 08:54 Pulse Ox 96 07/24/17 08:54 - Labs Result Diagrams: 07/24/17 06:55 07/24/17 06:55 Labs: Laboratory Results - last 24 hr 07/21/17 07/23/17 07/23/17 12:41 11:45 15:55 WBC RBC Hgb Hct MCV MCH MCHC RDW Plt Count MPV Gran % Lymph % (Auto) [place] % (Auto) Eos % (Auto) Baso % (Auto) Gran # Lymph # [place] # Eos # Baso # Neutrophils % (Manual) Lymphocytes % (Manual) Monocytes % (Manual) Toxic Granulation Platelet Evaluation Anisocytosis (manual) Sodium Potassium Chloride Carbon Dioxide Anion Gap BUN Creatinine Est GFR ( Amer) Est GFR (Non-Af Amer) POC Glucose (mg/dL) 261 H Random Glucose Calcium Phosphorus Magnesium Total Bilirubin AST ALT Alkaline Phosphatase Total Protein Albumin Globulin Albumin/Globulin Ratio Procalcitonin 0.96 H Urine Color Urine Appearance Urine pH Ur Specific [place] Urine Protein Urine Glucose (UA) Urine Ketones Urine Blood Urine Nitrate Urine Bilirubin Urine Urobilinogen Ur Leukocyte Esterase Urine RBC Urine WBC Urine Bacteria Urine Osmolality Ur Random Creatinine Ur Random Sodium Ur Random Potassium Peritoneal Lipase see note Phenytoin 07/23/17 07/24/17 07/24/17 21:07 06:55 06:55 WBC 12.6 H D RBC 3.13 L Hgb 8.8 L Hct 27.2 L MCV 86.9 MCH 28.1 MCHC 32.4 RDW 23.1 H Plt Count 140 MPV 9.9 Gran % 93.9 H Lymph % (Auto) 2.2 L [place] % (Auto) 3.6 Eos % (Auto) 0.3 L Baso % (Auto) 0.0 Gran # 11.79 H Lymph # 0.3 L [place] # 0.5 Eos # 0.0 Baso # 0.00 Neutrophils % (Manual) 95 H Lymphocytes % (Manual) 4 L Monocytes % (Manual) 1 Toxic Granulation Slight Platelet Evaluation Normal Anisocytosis (manual) Slight Sodium 133 Potassium 3.1 L Chloride 100 Carbon Dioxide 24 Anion Gap 12 BUN 2 L Creatinine 0.3 L Est GFR ( Amer) > 60 Est GFR (Non-Af Amer) > 60 POC Glucose (mg/dL) 205 H Random Glucose 236 H Calcium 7.7 L Phosphorus 1.5 L Magnesium 1.7 Total Bilirubin 5.0 H AST 38 ALT 32 Alkaline Phosphatase 684 H Total Protein 5.3 L Albumin 2.6 L Globulin 2.7 Albumin/Globulin Ratio 1.0 L Procalcitonin Urine Color Urine Appearance Urine pH Ur Specific [place] Urine Protein Urine Glucose (UA) Urine Ketones Urine Blood Urine Nitrate Urine Bilirubin Urine Urobilinogen Ur Leukocyte Esterase Urine RBC Urine WBC Urine Bacteria Urine Osmolality Ur Random Creatinine Ur Random Sodium Ur Random Potassium Peritoneal Lipase Phenytoin 07/24/17 07/24/17 07/24/17 07:00 07:11 09:29 WBC RBC Hgb Hct MCV MCH MCHC RDW Plt Count MPV Gran % Lymph % (Auto) [place] % (Auto) Eos % (Auto) Baso % (Auto) Gran # Lymph # [place] # Eos # Baso # Neutrophils % (Manual) Lymphocytes % (Manual) Monocytes % (Manual) Toxic Granulation Platelet Evaluation Anisocytosis (manual) Sodium Potassium Chloride Carbon Dioxide Anion Gap BUN Creatinine Est GFR ( Amer) Est GFR (Non-Af Amer) POC Glucose (mg/dL) 249 H Random Glucose Calcium Phosphorus Magnesium Total Bilirubin AST ALT Alkaline Phosphatase Total Protein Albumin Globulin Albumin/Globulin Ratio Procalcitonin Urine Color Urine Appearance Urine pH Ur Specific [place] Urine Protein Urine Glucose (UA) Urine Ketones Urine Blood Urine Nitrate Urine Bilirubin Urine Urobilinogen Ur Leukocyte Esterase Urine RBC Urine WBC Urine Bacteria Urine Osmolality 249 Ur Random Creatinine 63 Ur Random Sodium Ur Random Potassium Peritoneal Lipase Phenytoin 11 07/24/17 07/24/17 07/24/17 09:29 09:29 11:42 WBC RBC Hgb Hct MCV MCH MCHC RDW Plt Count MPV Gran % Lymph % (Auto) [place] % (Auto) Eos % (Auto) Baso % (Auto) Gran # Lymph # [place] # Eos # Baso # Neutrophils % (Manual) Lymphocytes % (Manual) Monocytes % (Manual) Toxic Granulation Platelet Evaluation Anisocytosis (manual) Sodium Potassium Chloride Carbon Dioxide Anion Gap BUN Creatinine Est GFR ( Amer) Est GFR (Non-Af Amer) POC Glucose (mg/dL) 286 H Random Glucose Calcium Phosphorus Magnesium Total Bilirubin AST ALT Alkaline Phosphatase Total Protein Albumin Globulin Albumin/Globulin Ratio Procalcitonin Urine Color Brown Urine Appearance Sl cloudy Urine pH 6.0 Ur Specific [place] 1.010 Urine Protein Trace H Urine Glucose (UA) 100 H Urine Ketones Negative Urine Blood Moderate H Urine Nitrate Negative Urine Bilirubin Large H Urine Urobilinogen 0.2 Ur Leukocyte Esterase Trace H Urine RBC 0 - 2 Urine WBC Negative Urine Bacteria Trace Urine Osmolality Ur Random Creatinine Ur Random Sodium 6 Ur Random Potassium 28.8 Peritoneal Lipase Phenytoin Assessment & Plan - Assessment and Plan (Free Text) Assessment: 56 year old male with history of pancreatic cancer and dementia who was admitted with altered mental status,sepsis, ANA MARIA, left femoral DVT, hyponatremia and ascites. The patient is lethargic but rouses easily. He speaks primarily in [place]. He is confused, answers simple questions. Appears comfortable. I spoke with patient's guardian, David Meir Esshahana. via phone. Mr Worley indicated that the patient had been declared incompetent in 2005 and it was at that time Mr. Worley assumed guardianship. Mr Worley affirmed that the patient is full code status and he is to be contacted for all medical decision making. Time spent in advance care planning discussion, 20 minutes Plan: Advance care planning
[2017-07-24] MEDS: Vancomycin 25 MG/ML PO SCH ×3 (15:02→22:34)
--- NOTE | 2017-07-24 15:20 | CP.PCM.PN ---
Subjective - Date & Time of Evaluation Date of Evaluation: 07/24/17 Time of Evaluation: 13:55 - Subjective Subjective: Had fever this morning, but not in distress. Objective - Vital Signs/Intake and Output Vital Signs (last 24 hours): Temp Pulse Resp BP Pulse Ox 100.9 F H 105 H 20 110/67 96 07/24/17 08:54 07/24/17 08:54 07/24/17 08:54 07/24/17 08:54 07/24/17 08:54 Intake and Output: 07/24/17 07/24/17 06:59 18:59 Intake Total 780 Output Total 1500 Balance -720 - Medications Medications: Current Medications Calcium/Vitamin D (Oscal-D 250 Mg-125 Units Tab) 1 tab PO DAILY [facility] Last Admin: 07/24/17 09:58 Dose: 1 tab Donepezil HCl (Aricept) 10 mg PO HS [facility] Last Admin: 07/23/17 22:47 Dose: 10 mg Furosemide (Lasix) 20 mg PO BID [facility] Last Admin: 07/23/17 10:54 Dose: Not Given Phenytoin 150 mg/ Sodium (Chloride) 53 mls @ 104 mls/hr IVPB 0600,1800 [facility] Last Admin: 07/24/17 06:30 Dose: 104 mls/hr Vancomycin HCl (Vancomycin 1gm) 1 gm in 250 mls @ 167 mls/hr IVPB Q12H [facility] PRN Reason: Protocol Last Admin: 07/24/17 10:01 Dose: 167 mls/hr Potassium Chloride 20 meq/ (Sodium Chloride) 1,010 mls @ 60 mls/hr IV .[id number] [facility] Lactulose (Enulose) 20 gm PO BID [facility] Last Admin: 07/24/17 09:58 Dose: 20 gm Lidocaine (Lidoderm) 1 ea TD DAILY [facility] Last Admin: 07/24/17 09:58 Dose: 1 ea Ondansetron HCl (Zofran Inj) 4 mg IVP Q6H PRN PRN Reason: Nausea/Vomiting Last Admin: 07/20/17 10:50 Dose: 4 mg Pantoprazole Sodium (Protonix Ec Tab) 40 mg PO 0600,1600 [facility] Last Admin: 07/24/17 06:30 Dose: 40 mg Rifaximin (Xifaxan) 550 mg PO BID [facility] PRN Reason: Protocol Last Admin: 07/24/17 09:58 Dose: 550 mg Spironolactone (Aldactone) 25 mg PO BID [facility] Last Admin: 07/23/17 10:51 Dose: 25 mg Thiamine HCl (Vitamin B1 Inj) 100 mg IM BID [facility] Last Admin: 07/24/17 09:58 Dose: 100 mg Vancomycin HCl (Vancocin 25 Mg/Ml (Oral Use)) 125 mg PO QID [facility] PRN Reason: Protocol - Labs Labs: 07/24/17 06:55 07/24/17 06:55 PT 13.2 Seconds (9.9-11.8) H 07/12/17 09:00 INR 1.22 (0.93-1.08) H 07/12/17 09:00 APTT 26.1 Seconds (23.7-30.8) 07/12/17 09:00 - Constitutional Appears: Non-toxic, No Acute Distress - Head Exam Head Exam: NORMAL INSPECTION - ENT Exam ENT Exam: Mucous Membranes Moist - Neck Exam Neck Exam: absent: Meningismus - Respiratory Exam Respiratory Exam: Decreased Breath Sounds - Cardiovascular Exam Cardiovascular Exam: +S1, +S2 - GI/Abdominal Exam GI & Abdominal Exam: Soft. absent: Tenderness Assessment and Plan - Assessment and Plan (Free Text) Plan: Assessment new onset Systemic Inflammatory Response Syndrome, R/O new onset sepsis R/O C. diff. associated diarrhea acute encephalopathy probably due to hepatic encephalopathy pancreatic cancer with liver metastases S/P chemotherapy and radiation HTN DM dementia history of neurosyphilis seizure disorder asthma schizophrenia Plan follow up repeat blood cx, urine cx, stool for C. diff.; repeat CXR does not show infiltrates will start Vanco and Cefepime and PO vancomyin and will monitor clinically and trend fever curve
[2017-07-24] MEDS: Enoxaparin 80 mg Syringe SC SCH (17:12)
[2017-07-24] MEDS: Insulin Reg-LOW-Coverage SC SCH ×2 (17:13→21:59)
--- NOTE | 2017-07-24 18:02 | PN ---
DATE: 07/24/2017 LOCATION: The patient is in room 371, bed 1. REASON FOR CONSULTATION AND FOLLOWUP: Cardiac evaluation for ventricular tachycardia, which actually was artifact and history of pancreatic CA with metastasis. SUBJECTIVE: The patient is lying flat in bed without chest pain, shortness of breath, or palpitation. PHYSICAL EXAMINATION: VITAL SIGNS: Blood pressure 110/67, respirations 20, pulse 105, temperature 100.9, yesterday he had a temperature of 99.2. HEENT: Head is normocephalic. Eyes, pupils are normal. Conjunctivae slightly pale. NECK: JVP low. Carotids equal. THORAX: AP diameter normal. LUNGS: No rales. CARDIOVASCULAR: S1 and S2. ABDOMEN: Soft. Bowel sounds are normal. EXTREMITIES: No clubbing. No cyanosis. LABORATORY DATA: WBC 12.6, hemoglobin 8.8, hematocrit 27.2, platelets 140. Sodium 133, potassium 3.1, BUN 2, creatinine 0.3, anion gap of , calcium 7.7 which is low but albumin is also low at 2.6, total protein also low 5.3, phosphorus was 1.5, magnesium 1.7. DIAGNOSES: Artifact mimicking ventricular tachycardia, but no evidence of ventricular tachycardia, protein-calorie malnutrition, severe hypokalemia. Echo was done on 07/22/2017, which showed ejection fraction of 55% to 60%, right ventricular systolic pressure 39 mmHg, [id number] left pleural effusion, no pericardial effusion, trace aortic, mitral and tricuspid regurgitation. PLAN: We will treat the hypokalemia. The patient is on spironolactone 25 b.i.d., Dilantin IV. Today, potassium 40 mEq p.o. already ordered by Dr. Garces, research laboratory manager; Protonix 40 mg b.i.d.; 20 mEq potassium running at 60 mL per hour; vancomycin 1 g; normal saline 250 mL q. 12 hours; rifaximin 550 mg p.o. b.i.d.; thiamine 100 mg IM b.i.d. We will check electrolytes, BUN in the morning and we will follow with you. Jayme Park MD
[2017-07-24] MEDS: Cefepime 1gm in NS 100ml 1 GM/100 ML BAG IVPB SCH (21:58)
[2017-07-25 07:22] LABS: BLOOD UREA NITROGEN 3 mg/dL (7-21); CALCIUM 7.4 mg/dL (8.4-10.5); CARBON DIOXIDE 24 mmol/L (21-33); CHLORIDE 101 mmol/L (95-110); GFR AFRICAN-AMERICAN > 60; GLUCOSE,RANDOM 234 mg/dL (70-110); MAGNESIUM 1.7 mg/dL (1.7-2.2); PHOSPHOROUS 1.8 mg/dL (2.5-4.5); SODIUM 134 mmol/L (132-148)
--- NOTE | 2017-07-25 07:38 | PN ---
DATE: SUBJECTIVE: The patient is a 56-year-old male. The patient was seen and examined on the bedside, sleepy, arousable, but confused, does not look like in distress. No fever. No chills. No nausea or vomiting. No headaches or dizziness. No shortness of breath. PHYSICAL EXAMINATION: VITAL SIGNS: Temperature 98.2, pulse 84, blood pressure 95/66, and respiratory rate 20. HEENT: Head is normocephalic and atraumatic. Eyes, PERRLA. Extraocular muscles intact. Conjunctivae clear. Nose is patent. Mucous membrane is moist. NECK: Supple. No carotid bruits, no JVD or thyromegaly. CHEST: Bilaterally symmetrical. HEART: S1 and S2 positive. LUNGS: Clear to auscultation. ABDOMEN: Soft. Bowel sounds positive. No organomegaly. EXTREMITIES: No edema. No cyanosis. NEUROLOGIC: The patient is awake, alert, moving all 4 extremities. No focal deficit. LABORATORY DATA: White blood cells 12.6, hemoglobin 8.8, hematocrit 27.2, platelets 140. Sodium 133, potassium 3.1, BUN 2, creatinine 0.3, glucose 249 and 216, calcium 7.5, and phosphorus 1.5. MEDICATIONS: Aldactone, Aricept, Enulose, insulin sliding scale, Lasix, Lidoderm, Lovenox, cefepime, calcium with vitamin D, Dilantin, vancomycin, thiamine, rifaximin, and Zofran. ASSESSMENT AND PLAN: Ms. John Saha is a 56-year-old male with hypokalemia; uncontrolled diabetes mellitus; I put the patient on sliding scale; hypocalcemia; hypophosphatemia; abnormal liver function tests; leukocytosis; and anemia. Seen by Infectious Disease, Dr. Anibal Leslie. She has systemic inflammatory response syndrome, may be new onset of sepsis, Clostridium difficile toxin colitis, acute encephalopathy; probably due to hepatic encephalopathy, pancreatic cancer with liver metastasis, status post chemotherapy and laser therapy, dementia, history of neurosyphilis, seizure disorder, asthma, and schizophrenia. Repeat blood culture, urine culture, stool Clostridium difficile sent. Chest x-ray does not show any infiltrates. Infectious Disease started vancomycin, cefepime and p.o. vancomycin and we will see trending of the fever. Discussion done with Dr. Guerrero, attendance secretary, and with Mika hannah , she called the patient's guardian, Christian Dakotah Worley, via phone. Mr. Worley indicated that the patient had been declared incompetent in 2005 and it was at that time Mr. Worley assumed the guardianship. Mr. Worley found that the patient is full code status and he is to be contacted for all the medical decision making. The patient has history of ascites, paracentesis was done. The patient has deep venous thrombosis, starting on Lovenox 80 mg subcutaneous b.i.d. Discussion done with Dr. Raghu Luque. We will just do followup. Michelle Castillo MD MTDD
[2017-07-25 07:41] LABS: POTASSIUM 2.8 mmol/L (3.6-5.0)
--- NOTE | 2017-07-25 08:29 | CP.PCM.PN ---
<Madhu Torres - Last Filed: 07/25/17 14:27> Subjective - Date & Time of Evaluation Date of Evaluation: 07/25/17 Time of Evaluation: 08:29 - Subjective Subjective: PGY-[address] Garces's Nephrology service: Pt seen and examined at bedside. Nursing reports one episode of diarrhea overnight. Pt found resting comfortably in bed. He denies current complaints. Objective - Vital Signs/Intake and Output Vital Signs (last 24 hours): Temp Pulse Resp BP Pulse Ox 98.2 F 78 20 95/66 L 98 07/24/17 16:00 07/25/17 06:00 07/24/17 16:00 07/24/17 16:00 07/24/17 16:00 Intake and Output: 07/25/17 07/25/17 06:59 18:59 Intake Total 1740 Output Total 1800 Balance -60 - Medications Medications: Current Medications Calcium/Vitamin D (Oscal-D 250 Mg-125 Units Tab) 1 tab PO DAILY [facility] Last Admin: 07/24/17 09:58 Dose: 1 tab Donepezil HCl (Aricept) 10 mg PO HS [facility] Last Admin: 07/24/17 21:55 Dose: 10 mg Enoxaparin Sodium (Lovenox) 80 mg SC Q12H [facility] PRN Reason: Protocol Last Admin: 07/24/17 17:12 Dose: 80 mg Furosemide (Lasix) 20 mg PO BID [facility] Last Admin: 07/23/17 10:54 Dose: Not Given Phenytoin 150 mg/ Sodium (Chloride) 53 mls @ 104 mls/hr IVPB 0600,1800 [facility] Last Admin: 07/24/17 18:01 Dose: 104 mls/hr Vancomycin HCl (Vancomycin 1gm) 1 gm in 250 mls @ 167 mls/hr IVPB Q12H [facility] PRN Reason: Protocol Last Admin: 07/24/17 22:35 Dose: 167 mls/hr Potassium Chloride 20 meq/ (Sodium Chloride) 1,010 mls @ 60 mls/hr IV .[id number] [facility] Last Admin: 07/24/17 12:38 Dose: 60 mls/hr Cefepime HCl (Maxipime 1gm) 1 gm in 100 mls @ 100 mls/hr IVPB Q12 [facility] PRN Reason: Protocol Last Admin: 07/24/17 21:58 Dose: 100 mls/hr Insulin Human Regular (Humulin R Low) 0 units SC ACHS [facility] PRN Reason: Protocol Last Admin: 07/24/17 21:59 Dose: Not Given Lactulose (Enulose) 20 gm PO BID [facility] Last Admin: 07/24/17 17:11 Dose: 20 gm Lidocaine (Lidoderm) 1 ea TD DAILY [facility] Last Admin: 07/24/17 09:58 Dose: 1 ea Ondansetron HCl (Zofran Inj) 4 mg IVP Q6H PRN PRN Reason: Nausea/Vomiting Last Admin: 07/20/17 10:50 Dose: 4 mg Pantoprazole Sodium (Protonix Ec Tab) 40 mg PO 0600,1600 [facility] Last Admin: 07/24/17 17:11 Dose: 40 mg Rifaximin (Xifaxan) 550 mg PO BID [facility] PRN Reason: Protocol Last Admin: 07/24/17 17:12 Dose: 550 mg Spironolactone (Aldactone) 25 mg PO BID [facility] Last Admin: 07/23/17 10:51 Dose: 25 mg Thiamine HCl (Vitamin B1 Inj) 100 mg IM BID [facility] Last Admin: 07/24/17 17:11 Dose: 100 mg Vancomycin HCl (Vancocin 25 Mg/Ml (Oral Use)) 125 mg PO QID [facility] PRN Reason: Protocol Last Admin: 07/24/17 22:34 Dose: 125 mg - Labs Labs: 07/24/17 06:55 07/25/17 05:15 PT 13.2 Seconds (9.9-11.8) H 07/12/17 09:00 INR 1.22 (0.93-1.08) H 07/12/17 09:00 APTT 26.1 Seconds (23.7-30.8) 07/12/17 09:00 - Constitutional Appears: Non-toxic, No Acute Distress - Head Exam Head Exam: ATRAUMATIC, NORMAL INSPECTION, NORMOCEPHALIC - Eye Exam Eye Exam: EOMI, Scleral icterus (mild bilaterally) - ENT Exam ENT Exam: Mucous Membranes Moist - Respiratory Exam Respiratory Exam: Clear to Ausculation Bilateral, NORMAL BREATHING PATTERN - Cardiovascular Exam Cardiovascular Exam: REGULAR RHYTHM, +S1, +S2 - GI/Abdominal Exam GI & Abdominal Exam: Distended. absent: Tenderness - Back Exam Back Exam: absent: CVA tenderness (L), CVA tenderness (R) - Neurological Exam Neurological Exam: Alert, Awake. absent: Oriented x3 Assessment and Plan - Assessment and Plan (Free Text) Plan: (1) ANA MARIA (acute kidney injury) BUN/CR 3/0.3 this AM Status: Resolved (2) Hypernatremia Status: Resolved (3) Hypokalemia Assessment & Plan: K 2.8 on AM labs persistent in the setting of stool losses continue 20 meq/L KCl to IVF in addition to PO supplementation Kdur 40 meq x 2 doses Q2H -f/u CMP at 5pm on 07/25 Status: Acute (4) Hypophosphatemia Phos 1.8 on AM labs Neutra-Phos 1 packet PO TID (5) Hypotension Assessment & Plan: Remains hypotensive; continue on gentle IVF (NS at 60 cc/hr); Status: Acute (6) SIRS (systemic inflammatory response syndrome) Assessment & Plan: C diff negative; Vanco trough 5.2 Status: Acute Discussed with Dr. Dez Torres PGY-1 <Som Garces - Last Filed: 07/26/17 08:40> Objective - Vital Signs/Intake and Output Vital Signs (last 24 hours): Temp Pulse Resp BP Pulse Ox 98.7 F 80 20 106/62 97 07/26/17 06:00 07/26/17 06:00 07/26/17 06:00 07/26/17 06:00 07/26/17 06:00 Intake and Output: 07/26/17 07/26/17 06:59 18:59 Intake Total 2780 Output Total 904 Balance 1876 - Medications Medications: Current Medications Calcium/Vitamin D (Oscal-D 250 Mg-125 Units Tab) 1 tab PO DAILY [facility] Last Admin: 07/25/17 10:03 Dose: 1 tab Donepezil HCl (Aricept) 10 mg PO HS [facility] Last Admin: 07/25/17 21:51 Dose: 10 mg Enoxaparin Sodium (Lovenox) 80 mg SC Q12H [facility] PRN Reason: Protocol Last Admin: 07/26/17 05:16 Dose: 80 mg Furosemide (Lasix) 20 mg PO BID [facility] Last Admin: 07/23/17 10:54 Dose: Not Given Phenytoin 150 mg/ Sodium (Chloride) 53 mls @ 104 mls/hr IVPB 0600,1800 [facility] Last Admin: 07/26/17 05:16 Dose: 104 mls/hr Cefepime HCl (Maxipime 1gm) 1 gm in 100 mls @ 100 mls/hr IVPB Q12 [facility] PRN Reason: Protocol Last Admin: 07/25/17 21:51 Dose: 100 mls/hr Potassium Chloride 20 meq/ (Sodium Chloride) 1,010 mls @ 80 mls/hr IV .[id number] [facility] Last Admin: 07/26/17 00:51 Dose: 80 mls/hr Insulin Human Regular (Humulin R Low) 0 units SC ACHS [facility] PRN Reason: Protocol Last Admin: 07/25/17 21:53 Dose: Not Given Lactulose (Enulose) 20 gm PO BID [facility] Last Admin: 07/25/17 17:40 Dose: 20 gm Lidocaine (Lidoderm) 1 ea TD DAILY [facility] Last Admin: 07/25/17 10:04 Dose: 1 ea Ondansetron HCl (Zofran Inj) 4 mg IVP Q6H PRN PRN Reason: Nausea/Vomiting Last Admin: 07/20/17 10:50 Dose: 4 mg Pantoprazole Sodium (Protonix Ec Tab) 40 mg PO 0600,1600 [facility] Last Admin: 07/26/17 05:16 Dose: 40 mg Potassium Phos/Sodium Phos (Neutra-Phos) 1 pkt PO TID [facility] Stop: 07/26/17 23:00 Last Admin: 07/25/17 17:40 Dose: 1 pkt Spironolactone (Aldactone) 25 mg PO BID [facility] Last Admin: 07/23/17 10:51 Dose: 25 mg Thiamine HCl (Vitamin B1 Inj) 100 mg IM BID [facility] Last Admin: 07/25/17 17:41 Dose: 100 mg - Labs Labs: 07/24/17 06:55 07/25/17 05:15 PT 13.2 Seconds (9.9-11.8) H 07/12/17 09:00 INR 1.22 (0.93-1.08) H 07/12/17 09:00 APTT 26.1 Seconds (23.7-30.8) 07/12/17 09:00 Assessment and Plan (1) ANA MARIA (acute kidney injury) Status: Resolved (2) Hypernatremia Status: Resolved (3) Hypokalemia Status: Acute (4) Hypotension Status: Acute (5) SIRS (systemic inflammatory response syndrome) Status: Acute Attending/Attestation - Attestation I have personally seen and examined this patient.: Yes I have fully participated in the care of the patient.: Yes I have reviewed all pertinent clinical information, including history, physical exam and plan: Yes Notes (Text): Patient seen and examined; I agree with the resident's note as above with the following additions/edits: Patient with pancreatic CA admitted with altered mental status, SIRS/Sepsis, abdominal ascites, nephrology initially consulted for oliguria which has since resolved; Hypokalemia worsened in the setting of stool losses; aggressively replenishing today mainly via PO route as well as continuing 20 meq/L KCl in IVF; Increasing NS to 80 cc/hr due to mild hypotension;
[2017-07-25] MEDS: Insulin Reg-LOW-Coverage SC SCH ×4 (08:38→21:53)
[2017-07-25] MEDS: Thiamine 100 mg/ml Inj IM SCH ×2 (10:02→17:41)
[2017-07-25] MEDS: Vancomycin 25 MG/ML PO SCH ×2 (10:03→13:16)
[2017-07-25] MEDS: Calcium-Vit D 250 mg-125 Units Tab UD PO SCH (10:03)
[2017-07-25] MEDS: Lidocaine 5% Patch TD SCH (10:04)
[2017-07-25] MEDS: Vancomycin 1gm in NS 250ml 1 GM/250 ML BAG IVPB SCH (10:05)
[2017-07-25] MEDS: Cefepime 1gm in NS 100ml 1 GM/100 ML BAG IVPB SCH ×2 (11:37→21:51)
--- NOTE | 2017-07-25 12:10 | CP.PCM.PN ---
<Vale Lo - Last Filed: 07/25/17 12:11> Subjective - Date & Time of Evaluation Date of Evaluation: 07/25/17 Time of Evaluation: 10:00 - Subjective Subjective: S&E at bedside, chart reviewed. no acute overnight events. on clear and tolerating, no reports of overt GI bleeding. Cdiff negative. Objective - Vital Signs/Intake and Output Vital Signs (last 24 hours): Temp Pulse Resp BP Pulse Ox 98.8 F 85 20 85/55 L 100 07/25/17 09:13 07/25/17 09:13 07/25/17 09:13 07/25/17 09:13 07/25/17 09:13 Intake and Output: 07/25/17 07/25/17 06:59 18:59 Intake Total 1740 Output Total 1800 Balance -60 - Medications Medications: Current Medications Calcium/Vitamin D (Oscal-D 250 Mg-125 Units Tab) 1 tab PO DAILY [facility] Last Admin: 07/25/17 10:03 Dose: 1 tab Donepezil HCl (Aricept) 10 mg PO HS [facility] Last Admin: 07/24/17 21:55 Dose: 10 mg Enoxaparin Sodium (Lovenox) 80 mg SC Q12H [facility] PRN Reason: Protocol Last Admin: 07/24/17 17:12 Dose: 80 mg Furosemide (Lasix) 20 mg PO BID [facility] Last Admin: 07/23/17 10:54 Dose: Not Given Phenytoin 150 mg/ Sodium (Chloride) 53 mls @ 104 mls/hr IVPB 0600,1800 [facility] Last Admin: 07/24/17 18:01 Dose: 104 mls/hr Vancomycin HCl (Vancomycin 1gm) 1 gm in 250 mls @ 167 mls/hr IVPB Q12H [facility] PRN Reason: Protocol Last Admin: 07/25/17 10:05 Dose: 167 mls/hr Cefepime HCl (Maxipime 1gm) 1 gm in 100 mls @ 100 mls/hr IVPB Q12 [facility] PRN Reason: Protocol Last Admin: 07/25/17 11:37 Dose: 100 mls/hr Potassium Chloride (Potassium Chloride 10 Meq/100 Ml) 10 meq in 100 mls @ 100 mls/hr IVPB Q2H [facility] Stop: 07/25/17 14:14 Last Admin: 07/25/17 11:56 Dose: 100 mls/hr Potassium Chloride 20 meq/ (Sodium Chloride) 1,010 mls @ 80 mls/hr IV .[id number] [facility] Insulin Human Regular (Humulin R Low) 0 units SC ACHS [facility] PRN Reason: Protocol Last Admin: 07/25/17 12:00 Dose: Not Given Lactulose (Enulose) 20 gm PO BID [facility] Last Admin: 07/25/17 10:02 Dose: 20 gm Lidocaine (Lidoderm) 1 ea TD DAILY [facility] Last Admin: 07/25/17 10:04 Dose: 1 ea Ondansetron HCl (Zofran Inj) 4 mg IVP Q6H PRN PRN Reason: Nausea/Vomiting Last Admin: 07/20/17 10:50 Dose: 4 mg Pantoprazole Sodium (Protonix Ec Tab) 40 mg PO 0600,1600 [facility] Last Admin: 07/24/17 17:11 Dose: 40 mg Potassium Chloride (Potassium Chloride Oral Soln) 40 meq PO Q2H [facility] Stop: 07/25/17 13:16 Rifaximin (Xifaxan) 550 mg PO BID [facility] PRN Reason: Protocol Last Admin: 07/25/17 10:03 Dose: 550 mg Spironolactone (Aldactone) 25 mg PO BID [facility] Last Admin: 07/23/17 10:51 Dose: 25 mg Thiamine HCl (Vitamin B1 Inj) 100 mg IM BID [facility] Last Admin: 07/25/17 10:02 Dose: 100 mg Vancomycin HCl (Vancocin 25 Mg/Ml (Oral Use)) 125 mg PO QID [facility] PRN Reason: Protocol Last Admin: 07/25/17 10:03 Dose: 125 mg - Labs Labs: 07/24/17 06:55 07/25/17 05:15 PT 13.2 Seconds (9.9-11.8) H 07/12/17 09:00 INR 1.22 (0.93-1.08) H 07/12/17 09:00 APTT 26.1 Seconds (23.7-30.8) 07/12/17 09:00 - Constitutional Appears: No Acute Distress - Head Exam Head Exam: NORMOCEPHALIC - Eye Exam Eye Exam: Scleral icterus - ENT Exam ENT Exam: Mucous Membranes Moist - Neck Exam Neck Exam: Normal Inspection - Respiratory Exam Respiratory Exam: NORMAL BREATHING PATTERN. absent: Respiratory Distress - Cardiovascular Exam Cardiovascular Exam: +S1, +S2 - GI/Abdominal Exam GI & Abdominal Exam: Distended, Soft, Normal Bowel Sounds. absent: Guarding, Tenderness, Rebound - Extremities Exam Extremities Exam: Normal Capillary Refill, Pedal Edema. absent: Calf Tenderness - Neurological Exam Neurological Exam: Alert, Altered, Awake - Skin Skin Exam: Dry, Warm Assessment and Plan - Assessment and Plan (Free Text) Assessment: ASSESSMENT: 56-year-old male with PMH Pancreatic Cancer w/ metastasis, superior mesenteric vein thrombus admitted for altered mental status Colitis, cdiff negative Left leg DVT, received dose Lovenox Abdominal Ascites, s/p paracentesis Hypokalemia Hepatic encephalopathy Sepsis Elevated LFT, r/o stent obstruction, ct scan from 06/2017 films were reviewed w/ Dr. 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 Wilson. <Harjeet Guerrero V - Last Filed: 07/25/17 23:52> Objective - Vital Signs/Intake and Output Vital Signs (last 24 hours): Temp Pulse Resp BP Pulse Ox 97.6 F 81 20 95/59 L 94 L 07/25/17 16:00 07/25/17 16:00 07/25/17 16:00 07/25/17 16:00 07/25/17 16:00 Intake and Output: 07/25/17 07/26/17 18:59 06:59 Intake Total 1020 Output Total 900 Balance 120 - Medications Medications: Current Medications Calcium/Vitamin D (Oscal-D 250 Mg-125 Units Tab) 1 tab PO DAILY [facility] Last Admin: 07/25/17 10:03 Dose: 1 tab Donepezil HCl (Aricept) 10 mg PO HS [facility] Last Admin: 07/25/17 21:51 Dose: 10 mg Enoxaparin Sodium (Lovenox) 80 mg SC Q12H [facility] PRN Reason: Protocol Last Admin: 07/25/17 19:31 Dose: Not Given Furosemide (Lasix) 20 mg PO BID [facility] Last Admin: 07/23/17 10:54 Dose: Not Given Phenytoin 150 mg/ Sodium (Chloride) 53 mls @ 104 mls/hr IVPB 0600,1800 [facility] Last Admin: 07/25/17 19:30 Dose: Not Given Cefepime HCl (Maxipime 1gm) 1 gm in 100 mls @ 100 mls/hr IVPB Q12 [facility] PRN Reason: Protocol Last Admin: 07/25/17 21:51 Dose: 100 mls/hr Potassium Chloride 20 meq/ (Sodium Chloride) 1,010 mls @ 80 mls/hr IV .[id number] [facility] Last Admin: 07/25/17 12:30 Dose: Not Given Insulin Human Regular (Humulin R Low) 0 units SC ACHS [facility] PRN Reason: Protocol Last Admin: 07/25/17 21:53 Dose: Not Given Lactulose (Enulose) 20 gm PO BID [facility] Last Admin: 07/25/17 17:40 Dose: 20 gm Lidocaine (Lidoderm) 1 ea TD DAILY [facility] Last Admin: 07/25/17 10:04 Dose: 1 ea Ondansetron HCl (Zofran Inj) 4 mg IVP Q6H PRN PRN Reason: Nausea/Vomiting Last Admin: 07/20/17 10:50 Dose: 4 mg Pantoprazole Sodium (Protonix Ec Tab) 40 mg PO 0600,1600 [facility] Last Admin: 07/25/17 19:31 Dose: Not Given Potassium Phos/Sodium Phos (Neutra-Phos) 1 pkt PO TID [facility] Stop: 07/26/17 23:00 Last Admin: 07/25/17 17:40 Dose: 1 pkt Spironolactone (Aldactone) 25 mg PO BID [facility] Last Admin: 07/23/17 10:51 Dose: 25 mg Thiamine HCl (Vitamin B1 Inj) 100 mg IM BID [facility] Last Admin: 07/25/17 17:41 Dose: 100 mg - Labs Labs: 07/24/17 06:55 07/25/17 05:15 PT 13.2 Seconds (9.9-11.8) H 07/12/17 09:00 INR 1.22 (0.93-1.08) H 07/12/17 09:00 APTT 26.1 Seconds (23.7-30.8) 07/12/17 09:00 Attending/Attestation - Attestation I have personally seen and examined this patient.: Yes I have fully participated in the care of the patient.: Yes I have reviewed all pertinent clinical information, including history, physical exam and plan: Yes Notes (Text): 07/25/17 23:52 p
[2017-07-25] MEDS: Potassium Chloride 40 mEq/30 ml LIQ UD PO SCH ×2 (12:31→13:16)
[2017-07-25] MEDS ORDERED: Potassium Chloride 20 mEq ER Tab PO ONE ×2 (12:32→17:00)
[2017-07-25] MEDS ORDERED: Albumin Human 25% (12.5 gm/50 ml) IV ONE (12:33)
[2017-07-25] MEDS: Potassium & Sodium Phosphate PO SCH ×2 (13:16→17:40)
--- NOTE | 2017-07-25 14:05 | CP.PCM.PN ---
<Jorge Mckinley - Last Filed: 07/25/17 17:52> Subjective - Date & Time of Evaluation Date of Evaluation: 07/25/17 Time of Evaluation: 09:30 - Subjective Subjective: Neurology Progress Note for Dr. Gambino service Patient seen and examined at bedside. No acute events overnight. Patient's mentation has greatly improved with his improved ammonia level. No acute complaints as per patient. Following commands appropriately, interactive and responsive to staff at bedside. Objective - Vital Signs/Intake and Output Vital Signs (last 24 hours): Temp Pulse Resp BP Pulse Ox 98.8 F 85 20 85/55 L 100 07/25/17 09:13 07/25/17 09:13 07/25/17 09:13 07/25/17 09:13 07/25/17 09:13 Intake and Output: 07/25/17 07/25/17 06:59 18:59 Intake Total 1740 Output Total 1800 Balance -60 - Medications Medications: Current Medications Calcium/Vitamin D (Oscal-D 250 Mg-125 Units Tab) 1 tab PO DAILY [facility] Last Admin: 07/25/17 10:03 Dose: 1 tab Donepezil HCl (Aricept) 10 mg PO HS [facility] Last Admin: 07/24/17 21:55 Dose: 10 mg Enoxaparin Sodium (Lovenox) 80 mg SC Q12H [facility] PRN Reason: Protocol Last Admin: 07/24/17 17:12 Dose: 80 mg Furosemide (Lasix) 20 mg PO BID [facility] Last Admin: 07/23/17 10:54 Dose: Not Given Phenytoin 150 mg/ Sodium (Chloride) 53 mls @ 104 mls/hr IVPB 0600,1800 [facility] Last Admin: 07/24/17 18:01 Dose: 104 mls/hr Vancomycin HCl (Vancomycin 1gm) 1 gm in 250 mls @ 167 mls/hr IVPB Q12H [facility] PRN Reason: Protocol Last Admin: 07/25/17 10:05 Dose: 167 mls/hr Cefepime HCl (Maxipime 1gm) 1 gm in 100 mls @ 100 mls/hr IVPB Q12 [facility] PRN Reason: Protocol Last Admin: 07/25/17 11:37 Dose: 100 mls/hr Potassium Chloride (Potassium Chloride 10 Meq/100 Ml) 10 meq in 100 mls @ 100 mls/hr IVPB Q2H [facility] Stop: 07/25/17 14:14 Last Admin: 07/25/17 13:17 Dose: 100 mls/hr Potassium Chloride 20 meq/ (Sodium Chloride) 1,010 mls @ 80 mls/hr IV .[id number] [facility] Last Admin: 07/25/17 12:30 Dose: Not Given Insulin Human Regular (Humulin R Low) 0 units SC ACHS [facility] PRN Reason: Protocol Last Admin: 07/25/17 12:00 Dose: Not Given Lactulose (Enulose) 20 gm PO BID [facility] Last Admin: 07/25/17 10:02 Dose: 20 gm Lidocaine (Lidoderm) 1 ea TD DAILY [facility] Last Admin: 07/25/17 10:04 Dose: 1 ea Ondansetron HCl (Zofran Inj) 4 mg IVP Q6H PRN PRN Reason: Nausea/Vomiting Last Admin: 07/20/17 10:50 Dose: 4 mg Pantoprazole Sodium (Protonix Ec Tab) 40 mg PO 0600,1600 [facility] Last Admin: 07/24/17 17:11 Dose: 40 mg Potassium Phos/Sodium Phos (Neutra-Phos) 1 pkt PO TID [facility] Stop: 07/26/17 23:00 Last Admin: 07/25/17 13:16 Dose: 1 pkt Rifaximin (Xifaxan) 550 mg PO BID [facility] PRN Reason: Protocol Last Admin: 07/25/17 10:03 Dose: 550 mg Spironolactone (Aldactone) 25 mg PO BID [facility] Last Admin: 07/23/17 10:51 Dose: 25 mg Thiamine HCl (Vitamin B1 Inj) 100 mg IM BID [facility] Last Admin: 07/25/17 10:02 Dose: 100 mg Vancomycin HCl (Vancocin 25 Mg/Ml (Oral Use)) 125 mg PO QID [facility] PRN Reason: Protocol Last Admin: 07/25/17 13:16 Dose: 125 mg - Labs Labs: 07/24/17 06:55 07/25/17 05:15 PT 13.2 Seconds (9.9-11.8) H 07/12/17 09:00 INR 1.22 (0.93-1.08) H 07/12/17 09:00 APTT 26.1 Seconds (23.7-30.8) 07/12/17 09:00 - Additional Findings Additional findings: - Constitutional Appears: Non-toxic, no acute distress - Head Exam Head Exam: ATRAUMATIC, NORMAL INSPECTION, NORMOCEPHALIC - Eye Exam Eye Exam: PERRL, Scleral icterus, EOMI. absent: Conjunctival injection Pupil Exam: NORMAL ACCOMODATION, PERRL. absent: Fixed, Irregular, Unequal - ENT Exam ENT Exam: Mucous Membranes Moist - Neck Exam Neck Exam: Normal ROM - Respiratory Exam Respiratory Exam: CTAB, NORMAL BREATHING PATTERN. absent: Accessory Muscle Use , Chest Wall Tenderness, Prolonged Expiratory Phase, Rales, Rhonchi, Wheezes, Respiratory Distress, Stridor - Cardiovascular Exam Cardiovascular Exam: RRR, REGULAR RHYTHM, +S1, +S2. absent: Tachycardia, Bradycardia, Irregular Rhythm, JVD, RRR, +S4 - GI/Abdominal Exam GI & Abdominal Exam: Distended (unchanged from prior exam) but soft, Distant sounding but otherwise regular bowel sounds. absent: Rigid, Soft, Hyperactive Bowel Sounds, Hypoactive Bowel Sounds, Normal Bowel Sounds - Extremities Exam Extremities Exam: Normal tone, +2 radial and +1 dorsalis pedis pulses. absent: Joint Swelling, Pedal Edema - Neurological Exam Additional comments: Awake and alert, easily arousable from sleep and remains awake, following all commands appropriately Motor strength 4/5 in bilateral UE and LE, 4/5 residence supervisor strength bilaterally GCS 15 - Psychiatric Exam Additional comments: Normal Mood, Normal Affect - Skin Skin Exam: Dry, Intact, Warm Assessment and Plan - Assessment and Plan (Free Text) Assessment: This is a 56 yo M with PMH of pancreatic Ca s/p chemo-rads, HTN, DM, dyslipidemia, neurosyphillus, seizures, asthma schizophrenia, and prior lacunar infarcts who presented initially to [facility] with complaint of weakness and altered mental status (sent from oncology clinic), and later developed worsening mental status and hematemesis. His altered mental status was likely due to toxic metabolic encephalopathy with an additional component of hepatic encephalopathy given his highly elevated ammonia, all in the setting of underlying pancreatic cancer. His mental status has significantly improved with as his ammonia level has decreased. Plan: 1) Continue dilantin for seizure ppx, safe to continue PO now that patient awake and alert 2) Avoid sedative medications 3) Thiamine 100mg BID for cognition 4) continue medical management as per primary team and GI Patient reviewed and discussed with attending, Dr. Gambino. <Lake Gmabino - Last Filed: 07/25/17 21:16> Objective - Vital Signs/Intake and Output Vital Signs (last 24 hours): Temp Pulse Resp BP Pulse Ox 97.6 F 81 20 95/59 L 94 L 07/25/17 16:00 07/25/17 16:00 07/25/17 16:00 07/25/17 16:00 07/25/17 16:00 Intake and Output: 07/25/17 07/26/17 18:59 06:59 Intake Total 1020 Output Total 900 Balance 120 - Medications Medications: Current Medications Calcium/Vitamin D (Oscal-D 250 Mg-125 Units Tab) 1 tab PO DAILY [facility] Last Admin: 07/25/17 10:03 Dose: 1 tab Donepezil HCl (Aricept) 10 mg PO HS [facility] Last Admin: 07/24/17 21:55 Dose: 10 mg Enoxaparin Sodium (Lovenox) 80 mg SC Q12H [facility] PRN Reason: Protocol Last Admin: 07/25/17 19:31 Dose: Not Given Furosemide (Lasix) 20 mg PO BID [facility] Last Admin: 07/23/17 10:54 Dose: Not Given Phenytoin 150 mg/ Sodium (Chloride) 53 mls @ 104 mls/hr IVPB 0600,1800 [facility] Last Admin: 07/25/17 19:30 Dose: Not Given Cefepime HCl (Maxipime 1gm) 1 gm in 100 mls @ 100 mls/hr IVPB Q12 [facility] PRN Reason: Protocol Last Admin: 07/25/17 11:37 Dose: 100 mls/hr Potassium Chloride 20 meq/ (Sodium Chloride) 1,010 mls @ 80 mls/hr IV .[id number] [facility] Last Admin: 07/25/17 12:30 Dose: Not Given Insulin Human Regular (Humulin R Low) 0 units SC ACHS [facility] PRN Reason: Protocol Last Admin: 07/25/17 17:42 Dose: Not Given Lactulose (Enulose) 20 gm PO BID [facility] Last Admin: 07/25/17 17:40 Dose: 20 gm Lidocaine (Lidoderm) 1 ea TD DAILY [facility] Last Admin: 07/25/17 10:04 Dose: 1 ea Ondansetron HCl (Zofran Inj) 4 mg IVP Q6H PRN PRN Reason: Nausea/Vomiting Last Admin: 07/20/17 10:50 Dose: 4 mg Pantoprazole Sodium (Protonix Ec Tab) 40 mg PO 0600,1600 [facility] Last Admin: 07/25/17 19:31 Dose: Not Given Potassium Phos/Sodium Phos (Neutra-Phos) 1 pkt PO TID [facility] Stop: 07/26/17 23:00 Last Admin: 07/25/17 17:40 Dose: 1 pkt Spironolactone (Aldactone) 25 mg PO BID [facility] Last Admin: 07/23/17 10:51 Dose: 25 mg Thiamine HCl (Vitamin B1 Inj) 100 mg IM BID [facility] Last Admin: 07/25/17 17:41 Dose: 100 mg - Labs Labs: 07/24/17 06:55 07/25/17 05:15 PT 13.2 Seconds (9.9-11.8) H 07/12/17 09:00 INR 1.22 (0.93-1.08) H 07/12/17 09:00 APTT 26.1 Seconds (23.7-30.8) 07/12/17 09:00 Attending/Attestation - Attestation I have personally seen and examined this patient.: Yes I have fully participated in the care of the patient.: Yes I have reviewed all pertinent clinical information, including history, physical exam and plan: Yes
--- NOTE | 2017-07-25 14:36 | CP.PCM.PN ---
Subjective - Date & Time of Evaluation Date of Evaluation: 07/25/17 Time of Evaluation: 11:20 - Subjective Subjective: Comfortable, afebrile, not in distress. Objective - Vital Signs/Intake and Output Vital Signs (last 24 hours): Temp Pulse Resp BP Pulse Ox 98.8 F 85 20 85/55 L 100 07/25/17 09:13 07/25/17 09:13 07/25/17 09:13 07/25/17 09:13 07/25/17 09:13 Intake and Output: 07/25/17 07/25/17 06:59 18:59 Intake Total 1740 Output Total 1800 Balance -60 - Medications Medications: Current Medications Calcium/Vitamin D (Oscal-D 250 Mg-125 Units Tab) 1 tab PO DAILY [facility] Last Admin: 07/24/17 09:58 Dose: 1 tab Donepezil HCl (Aricept) 10 mg PO HS [facility] Last Admin: 07/24/17 21:55 Dose: 10 mg Enoxaparin Sodium (Lovenox) 80 mg SC Q12H [facility] PRN Reason: Protocol Last Admin: 07/24/17 17:12 Dose: 80 mg Furosemide (Lasix) 20 mg PO BID [facility] Last Admin: 07/23/17 10:54 Dose: Not Given Phenytoin 150 mg/ Sodium (Chloride) 53 mls @ 104 mls/hr IVPB 0600,1800 [facility] Last Admin: 07/24/17 18:01 Dose: 104 mls/hr Vancomycin HCl (Vancomycin 1gm) 1 gm in 250 mls @ 167 mls/hr IVPB Q12H [facility] PRN Reason: Protocol Last Admin: 07/24/17 22:35 Dose: 167 mls/hr Potassium Chloride 20 meq/ (Sodium Chloride) 1,010 mls @ 60 mls/hr IV .[id number] [facility] Last Admin: 07/24/17 12:38 Dose: 60 mls/hr Cefepime HCl (Maxipime 1gm) 1 gm in 100 mls @ 100 mls/hr IVPB Q12 [facility] PRN Reason: Protocol Last Admin: 07/24/17 21:58 Dose: 100 mls/hr Insulin Human Regular (Humulin R Low) 0 units SC ACHS [facility] PRN Reason: Protocol Last Admin: 07/25/17 08:38 Dose: 3 units Lactulose (Enulose) 20 gm PO BID [facility] Last Admin: 07/24/17 17:11 Dose: 20 gm Lidocaine (Lidoderm) 1 ea TD DAILY [facility] Last Admin: 07/24/17 09:58 Dose: 1 ea Ondansetron HCl (Zofran Inj) 4 mg IVP Q6H PRN PRN Reason: Nausea/Vomiting Last Admin: 07/20/17 10:50 Dose: 4 mg Pantoprazole Sodium (Protonix Ec Tab) 40 mg PO 0600,1600 [facility] Last Admin: 07/24/17 17:11 Dose: 40 mg Rifaximin (Xifaxan) 550 mg PO BID [facility] PRN Reason: Protocol Last Admin: 07/24/17 17:12 Dose: 550 mg Spironolactone (Aldactone) 25 mg PO BID [facility] Last Admin: 07/23/17 10:51 Dose: 25 mg Thiamine HCl (Vitamin B1 Inj) 100 mg IM BID [facility] Last Admin: 07/24/17 17:11 Dose: 100 mg Vancomycin HCl (Vancocin 25 Mg/Ml (Oral Use)) 125 mg PO QID [facility] PRN Reason: Protocol Last Admin: 07/24/17 22:34 Dose: 125 mg - Labs Labs: 07/24/17 06:55 07/25/17 05:15 PT 13.2 Seconds (9.9-11.8) H 07/12/17 09:00 INR 1.22 (0.93-1.08) H 07/12/17 09:00 APTT 26.1 Seconds (23.7-30.8) 07/12/17 09:00 - Constitutional Appears: Non-toxic, No Acute Distress - Head Exam Head Exam: NORMAL INSPECTION - ENT Exam ENT Exam: Mucous Membranes Moist - Neck Exam Neck Exam: absent: Meningismus - Respiratory Exam Respiratory Exam: Decreased Breath Sounds - Cardiovascular Exam Cardiovascular Exam: +S1, +S2 - GI/Abdominal Exam GI & Abdominal Exam: Soft. absent: Tenderness Assessment and Plan - Assessment and Plan (Free Text) Plan: Assessment new onset Systemic Inflammatory Response Syndrome, so far no evidence of new onset sepsis acute encephalopathy probably due to hepatic encephalopathy pancreatic cancer with liver metastases S/P chemotherapy and radiation HTN DM dementia history of neurosyphilis seizure disorder asthma schizophrenia Plan follow up final results of repeat blood cx, urine cx; stool for C. diff. is negative; repeat CXR does not show infiltrates on Vanco and Cefepime - will d/c Vanco IV and PO - if cx continue to be negative tomorrow, will d/c cefepime as well will monitor clinically
[2017-07-25] MEDS: Pantoprazole 40 mg EC Tab PO SCH ×2 (17:41→19:31)
[2017-07-25] MEDS: Enoxaparin 80 mg Syringe SC SCH ×2 (17:44→19:31)
[2017-07-25] MEDS: SODIUM CHLORIDE 0.9% IVPB SCH ×2 (18:25→19:30)
[2017-07-25] MEDS: PHENYTOIN IVPB SCH ×2 (18:25→19:30)
--- NOTE | 2017-07-26 02:51 | PN ---
SUBJECTIVE: Patient is seen and examined on the bedside, looking comfortable. No nausea, vomiting, or diarrhea. No hematuria. No hematochezia. No swelling of the leg. No chest pain, no palpitation. No headache. No dizziness. Still complaining about distention of the abdomen and feeling lethargic. PHYSICAL EXAMINATION: VITAL SIGNS: Temperature 97.6, pulse 81, blood pressure 95/59, respiratory rate 20, pulse oxygenation 94. HEENT: Head, normocephalic and atraumatic. Eyes; PERRLA. Extraocular muscles intact. Conjunctivae clear. Nose patent. NECK: Supple. No carotid bruits, JVD, or thyromegaly. CHEST: Bilaterally symmetrical. HEART: S1 and S2 positive. LUNGS: Clear to auscultation. ABDOMEN: Distended. Fluid thrill is positive. EXTREMITIES: No edema. No cyanosis. NEUROLOGIC: The patient is awake and alert. Moving all 4 extremities. No focal deficit. LABORATORY DATA: White blood cells 12.6, hemoglobin 8.8, hematocrit 27.2, platelets 140. Sodium 134, potassium 2.4, BUN 3, creatinine 0.3, glucose 124. Serum glucose 234, calcium 7.4, phosphorus 1.4. MEDICATIONS: Aldactone, Aricept, lactulose, insulin, Lasix, Lidoderm, Lovenox, cefepime, Neutra-Phos, Dilantin, potassium, Protonix, B1, and Zofran. ASSESSMENT AND PLAN: Mr. Yifan Lopez is 56 years old male with leucocytosis, anemia, hypokalemia replaced, uncontrolled diabetes mellitus, hypocalcemia, hypophosphatemia, proteinuria, glycosuria, hematuria, urinary tract infection. Seen by Dr. Anibal Leslie. Systemic inflammatory response syndrome. Has history of acute encephalopathy, probably due to hepatic encephalopathy, pancreatic cancer with liver metastasis, status post chemotherapy and radiation therapy, hypertension, deep venous thrombosis, dementia, history of neurosyphilis, seizure disorder, asthma, and schizophrenia. Patient is on vancomycin and cefepime. According to infectious disease, cultures will stay negative. They will discontinue the antibiotics. Seen by the neurologist and GI. Acute kidney injury stable. Hypernatremia and hypotension. Maybe patient will go for paracentesis tomorrow. Meanwhile, continue present treatment and repeat labs. We will follow up. Michelle Castillo MD [facility] # [id number]
[2017-07-26] MEDS: Pantoprazole 40 mg EC Tab PO SCH ×2 (05:16→17:53)
[2017-07-26] MEDS: SODIUM CHLORIDE 0.9% IVPB SCH ×2 (05:16→19:29)
[2017-07-26] MEDS: Enoxaparin 80 mg Syringe SC SCH ×2 (05:16→17:55)
[2017-07-26] MEDS: PHENYTOIN IVPB SCH ×2 (05:16→19:29)
[2017-07-26 06:34] LABS: ALB/GLOB RATIO 0.9 (1.1-1.8); ALKALINE PHOSPHATASE 576 U/L (38-126); ALT/SGPT 28 U/L (7-56); AST/SGOT 31 U/L (17-59); BILIRUBIN,DIRECT 4.7 mg/dL (0.0-0.4); BILIRUBIN,TOTAL 5.8 mg/dL (0.2-1.3); TOTAL PROTEIN 5.2 g/dL (5.8-8.3)
--- NOTE | 2017-07-26 08:17 | PN ---
DATE: 07/25/2017 SUBJECTIVE: Denies any chest pain, shortness of breath, or any palpitation. PHYSICAL EXAMINATION: VITAL SIGNS: As follows: Temperature afebrile, heart rate 85, and blood pressure 85/55. HEENT: PERRLA. Extraocular muscles intact. NECK: Supple. No carotid bruits or thyromegaly. CHEST: Clear to auscultation. HEART: S1 and S2. Regular. ABDOMEN: Soft. EXTREMITIES: Clubbing and cyanosis negative. LABORATORY DATA: Blood workup as follows: WBC 12.3, hemoglobin 8.8, hematocrit 27.2, and platelets 140. Chemistry shows sodium 134, potassium 2.8, chloride 101, carbon dioxide 24, anion gap of 12, BUN 3, creatinine 0.3, and phosphorous 2.8. The patient had an echocardiography done on 07/22/2017 that showed ejection fraction of 55% to 60%, right ventricular systolic pressure 39 mmHg, [id number] pleural effusion, no pericardial effusion, trace aortic, mitral and tricuspid regurgitation. IMPRESSION: Status post large volume paracentesis, 4.1 L fluid was drained, multiple electrolytes abnormality, hypokalemia, hypophosphatemia, pancreatic carcinoma with metastasis, and protein-calorie malnutrition. RECOMMENDATIONS: Aggressively supplement potassium, give 1 dose of IV albumin to increase , increase the blood pressure because the patient systolic blood pressure secondary to large volume paracentesis. Overall, the patient's condition is critical, long-term prognosis is guarded. The patient has normal sinus, the ventricular tachycardia was called secondary to artifact. Overall, the patient's condition is critical. Consider DNR. Increase nutritional support. We will follow with you. at 5 p.m. We will continue although on Neutra-Phos. Thank you Dr. Castillo for providing the opportunity in taking care of the patient, John Saha. Jayme Harris MD
[2017-07-26 08:41] LABS: BLOOD UREA NITROGEN 2 mg/dL (7-21); CALCIUM 7.7 mg/dL (8.4-10.5); CARBON DIOXIDE 22 mmol/L (21-33); CHLORIDE 106 mmol/L (98-107); GFR AFRICAN-AMERICAN > 60; GLUCOSE,RANDOM 127 mg/dL (70-110); POTASSIUM 3.2 mmol/L (3.6-5.0); SODIUM 136 mmol/L (132-148)
[2017-07-26] MEDS: Insulin Reg-LOW-Coverage SC SCH ×4 (08:42→21:55)
[2017-07-26] MEDS: Thiamine 100 mg/ml Inj IM SCH ×2 (09:52→17:54)
[2017-07-26] MEDS: Cefepime 1gm in NS 100ml 1 GM/100 ML BAG IVPB SCH (09:53)
[2017-07-26] MEDS: Calcium-Vit D 250 mg-125 Units Tab UD PO SCH (09:53)
[2017-07-26] MEDS: Lidocaine 5% Patch TD SCH (09:53)
[2017-07-26] MEDS: Potassium & Sodium Phosphate PO SCH ×3 (11:00→17:54)
[2017-07-26] MEDS: Potassium Chloride 40 mEq/30 ml LIQ UD PO SCH ×2 (11:01→12:30)
--- NOTE | 2017-07-26 13:17 | CP.PCM.PN ---
<Vale Lo - Last Filed: 07/26/17 13:17> Subjective - Date & Time of Evaluation Date of Evaluation: 07/26/17 Time of Evaluation: 10:35 - Subjective Subjective: Seen and examined at the bedside earlier today, the chart was reviewed. Patient is awake alert, and aware of surroundings. He points to his belly and reports no pain. Patient is reported to be having loose bowel movements, no melena or bright red blood per rectum. No reports of nausea or vomiting. Objective - Vital Signs/Intake and Output Vital Signs (last 24 hours): Temp Pulse Resp BP Pulse Ox 98.7 F 80 20 106/62 97 07/26/17 06:00 07/26/17 06:00 07/26/17 06:00 07/26/17 06:00 07/26/17 06:00 Intake and Output: 07/26/17 07/26/17 06:59 18:59 Intake Total 2780 Output Total 904 Balance 1876 - Medications Medications: Current Medications Calcium/Vitamin D (Oscal-D 250 Mg-125 Units Tab) 1 tab PO DAILY [facility] Last Admin: 07/26/17 09:53 Dose: 1 tab Donepezil HCl (Aricept) 10 mg PO HS [facility] Last Admin: 07/25/17 21:51 Dose: 10 mg Enoxaparin Sodium (Lovenox) 80 mg SC Q12H [facility] PRN Reason: Protocol Last Admin: 07/26/17 05:16 Dose: 80 mg Furosemide (Lasix) 20 mg PO BID [facility] Last Admin: 07/23/17 10:54 Dose: Not Given Phenytoin 150 mg/ Sodium (Chloride) 53 mls @ 104 mls/hr IVPB 0600,1800 [facility] Last Admin: 07/26/17 05:16 Dose: 104 mls/hr Potassium Chloride 20 meq/ (Sodium Chloride) 1,010 mls @ 80 mls/hr IV .[id number] [facility] Last Admin: 07/26/17 00:51 Dose: 80 mls/hr Insulin Human Regular (Humulin R Low) 0 units SC ACHS [facility] PRN Reason: Protocol Last Admin: 07/26/17 12:30 Dose: 1 units Lactulose (Enulose) 20 gm PO BID [facility] Last Admin: 07/26/17 09:53 Dose: 20 gm Lidocaine (Lidoderm) 1 ea TD DAILY [facility] Last Admin: 07/26/17 09:53 Dose: 1 ea Ondansetron HCl (Zofran Inj) 4 mg IVP Q6H PRN PRN Reason: Nausea/Vomiting Last Admin: 07/20/17 10:50 Dose: 4 mg Pantoprazole Sodium (Protonix Ec Tab) 40 mg PO 0600,1600 [facility] Last Admin: 07/26/17 05:16 Dose: 40 mg Potassium Phos/Sodium Phos (Neutra-Phos) 1 pkt PO TID [facility] Stop: 07/26/17 23:00 Last Admin: 07/26/17 11:00 Dose: 1 pkt Spironolactone (Aldactone) 25 mg PO BID [facility] Last Admin: 07/23/17 10:51 Dose: 25 mg Thiamine HCl (Vitamin B1 Inj) 100 mg IM BID [facility] Last Admin: 07/26/17 09:52 Dose: 100 mg - Labs Labs: 07/24/17 06:55 07/26/17 06:00 PT 13.2 Seconds (9.9-11.8) H 07/12/17 09:00 INR 1.22 (0.93-1.08) H 07/12/17 09:00 APTT 26.1 Seconds (23.7-30.8) 07/12/17 09:00 - Constitutional Appears: No Acute Distress - Eye Exam Eye Exam: Scleral icterus - ENT Exam ENT Exam: Mucous Membranes Moist - Respiratory Exam Respiratory Exam: NORMAL BREATHING PATTERN. absent: Respiratory Distress - Cardiovascular Exam Cardiovascular Exam: +S1, +S2 - GI/Abdominal Exam GI & Abdominal Exam: Distended, Firm, Soft, Normal Bowel Sounds. absent: Tenderness - Extremities Exam Extremities Exam: Normal Capillary Refill. absent: Calf Tenderness, Pedal Edema - Neurological Exam Neurological Exam: Alert, Awake - Skin Skin Exam: Dry, Warm Additional comments: jaundice Assessment and Plan - Assessment and Plan (Free Text) Assessment: ASSESSMENT: 56-year-old male with PMH Pancreatic Cancer w/ metastasis, superior mesenteric vein thrombus admitted for altered mental status Colitis, cdiff negative Left leg DVT, received dose Lovenox Abdominal Ascites, s/p paracentesis Hypokalemia Hepatic encephalopathy Sepsis Elevated LFT, r/o stent obstruction, ct scan from 06/2017 films were reviewed w/ Dr. 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 Wilson. <Harjeet Guerrero V - Last Filed: 07/26/17 23:36> Objective - Vital Signs/Intake and Output Vital Signs (last 24 hours): Temp Pulse Resp BP Pulse Ox 98.4 F 80 20 114/74 99 07/26/17 16:00 07/26/17 18:00 07/26/17 16:00 07/26/17 16:00 07/26/17 16:00 Intake and Output: 07/26/17 07/27/17 18:59 06:59 Intake Total 1080 540 Output Total 1050 950 Balance 30 -410 - Medications Medications: Current Medications Calcium/Vitamin D (Oscal-D 250 Mg-125 Units Tab) 1 tab PO DAILY [facility] Last Admin: 07/26/17 09:53 Dose: 1 tab Donepezil HCl (Aricept) 10 mg PO HS [facility] Last Admin: 07/26/17 21:52 Dose: 10 mg Enoxaparin Sodium (Lovenox) 80 mg SC Q12H [facility] PRN Reason: Protocol Last Admin: 07/26/17 17:55 Dose: 80 mg Furosemide (Lasix) 20 mg PO BID [facility] Last Admin: 07/23/17 10:54 Dose: Not Given Phenytoin 150 mg/ Sodium (Chloride) 53 mls @ 104 mls/hr IVPB 0600,1800 [facility] Last Admin: 07/26/17 19:29 Dose: 104 mls/hr Potassium Chloride 20 meq/ (Sodium Chloride) 1,010 mls @ 80 mls/hr IV .[id number] [facility] Last Admin: 07/26/17 15:33 Dose: 80 mls/hr Insulin Human Regular (Humulin R Low) 0 units SC ACHS [facility] PRN Reason: Protocol Last Admin: 07/26/17 21:55 Dose: Not Given Lactulose (Enulose) 20 gm PO BID [facility] Last Admin: 07/26/17 17:53 Dose: 20 gm Lidocaine (Lidoderm) 1 ea TD DAILY [facility] Last Admin: 07/26/17 09:53 Dose: 1 ea Ondansetron HCl (Zofran Inj) 4 mg IVP Q6H PRN PRN Reason: Nausea/Vomiting Last Admin: 07/20/17 10:50 Dose: 4 mg Pantoprazole Sodium (Protonix Ec Tab) 40 mg PO 0600,1600 [facility] Last Admin: 07/26/17 17:53 Dose: 40 mg Spironolactone (Aldactone) 25 mg PO BID [facility] Last Admin: 07/23/17 10:51 Dose: 25 mg Thiamine HCl (Vitamin B1 Inj) 100 mg IM BID [facility] Last Admin: 07/26/17 17:54 Dose: 100 mg - Labs Labs: 07/24/17 06:55 07/26/17 06:00 PT 13.2 Seconds (9.9-11.8) H 07/12/17 09:00 INR 1.22 (0.93-1.08) H 07/12/17 09:00 APTT 26.1 Seconds (23.7-30.8) 07/12/17 09:00 Attending/Attestation - Attestation I have personally seen and examined this patient.: Yes I have fully participated in the care of the patient.: Yes I have reviewed all pertinent clinical information, including history, physical exam and plan: Yes Notes (Text): This is an addendum to GI progress report dictated by Vale Lo APN.The patient was seen and examined earlier. Medical records, lab studies, imagings were reviewed. Last 24 hours events reviewed. Agreed with the above treatment plan as outlined in Vale Lo APN's notes the with the addition of the following On examination of the abdomen less distended soft Metastatic pancreatic cancerwwith the involvement of the superior mesenteric vein and portal vein DVT Dementia with the neurosyphilis Sepsis Possible cholangitis Partially obstructed CBD stent Hepatic encephalopathy We will discuss with the patient's POA regarding Aggressive interventional procedures including ERCP in this patient in view of this multiple comorbidities with the poor prognosis due to advanced carcinoma 07/26/17 23:33
--- NOTE | 2017-07-26 14:50 | CP.PCM.PN ---
Subjective - Date & Time of Evaluation Date of Evaluation: 07/26/17 Time of Evaluation: 11:20 - Subjective Subjective: Patient is more awake today, no fevers, no cough, no SOB, no abdominal pain. Objective - Vital Signs/Intake and Output Vital Signs (last 24 hours): Temp Pulse Resp BP Pulse Ox 98.7 F 80 20 106/62 97 07/26/17 06:00 07/26/17 06:00 07/26/17 06:00 07/26/17 06:00 07/26/17 06:00 Intake and Output: 07/26/17 07/26/17 06:59 18:59 Intake Total 2780 Output Total 904 Balance 1876 - Medications Medications: Current Medications Calcium/Vitamin D (Oscal-D 250 Mg-125 Units Tab) 1 tab PO DAILY [facility] Last Admin: 07/26/17 09:53 Dose: 1 tab Donepezil HCl (Aricept) 10 mg PO HS [facility] Last Admin: 07/25/17 21:51 Dose: 10 mg Enoxaparin Sodium (Lovenox) 80 mg SC Q12H [facility] PRN Reason: Protocol Last Admin: 07/26/17 05:16 Dose: 80 mg Furosemide (Lasix) 20 mg PO BID [facility] Last Admin: 07/23/17 10:54 Dose: Not Given Phenytoin 150 mg/ Sodium (Chloride) 53 mls @ 104 mls/hr IVPB 0600,1800 [facility] Last Admin: 07/26/17 05:16 Dose: 104 mls/hr Potassium Chloride 20 meq/ (Sodium Chloride) 1,010 mls @ 80 mls/hr IV .[id number] [facility] Last Admin: 07/26/17 00:51 Dose: 80 mls/hr Insulin Human Regular (Humulin R Low) 0 units SC ACHS [facility] PRN Reason: Protocol Last Admin: 07/26/17 08:42 Dose: Not Given Lactulose (Enulose) 20 gm PO BID [facility] Last Admin: 07/26/17 09:53 Dose: 20 gm Lidocaine (Lidoderm) 1 ea TD DAILY [facility] Last Admin: 07/26/17 09:53 Dose: 1 ea Ondansetron HCl (Zofran Inj) 4 mg IVP Q6H PRN PRN Reason: Nausea/Vomiting Last Admin: 07/20/17 10:50 Dose: 4 mg Pantoprazole Sodium (Protonix Ec Tab) 40 mg PO 0600,1600 [facility] Last Admin: 07/26/17 05:16 Dose: 40 mg Potassium Phos/Sodium Phos (Neutra-Phos) 1 pkt PO TID [facility] Stop: 07/26/17 23:00 Last Admin: 07/25/17 17:40 Dose: 1 pkt Spironolactone (Aldactone) 25 mg PO BID [facility] Last Admin: 07/23/17 10:51 Dose: 25 mg Thiamine HCl (Vitamin B1 Inj) 100 mg IM BID [facility] Last Admin: 07/26/17 09:52 Dose: 100 mg - Labs Labs: 07/24/17 06:55 07/26/17 06:00 PT 13.2 Seconds (9.9-11.8) H 07/12/17 09:00 INR 1.22 (0.93-1.08) H 07/12/17 09:00 APTT 26.1 Seconds (23.7-30.8) 07/12/17 09:00 - Constitutional Appears: Non-toxic, No Acute Distress - Head Exam Head Exam: NORMAL INSPECTION - ENT Exam ENT Exam: Mucous Membranes Moist - Neck Exam Neck Exam: absent: Lymphadenopathy, Meningismus - Respiratory Exam Respiratory Exam: Decreased Breath Sounds - Cardiovascular Exam Cardiovascular Exam: +S1, +S2 - GI/Abdominal Exam GI & Abdominal Exam: Distended, Soft. absent: Tenderness Assessment and Plan - Assessment and Plan (Free Text) Plan: Assessment new onset Systemic Inflammatory Response Syndrome, with no evidence of new onset sepsis acute encephalopathy probably due to hepatic encephalopathy pancreatic cancer with liver metastases S/P chemotherapy and radiation HTN DM dementia history of neurosyphilis seizure disorder asthma schizophrenia Plan repeat blood cx, urine cx are negative; stool for C. diff. is negative; repeat CXR does not show infiltrates will d/c antibiotics and observe
--- NOTE | 2017-07-26 16:12 | PN ---
DATE: 07/26/2017 LOCATION: The patient is in room 370, bed 1. REASON FOR CONSULTATION: Cardiac evaluation, rule-out arrhythmia. SUBJECTIVE: The patient is lying flat in bed without chest pain, shortness of breath, or palpitation. PHYSICAL EXAMINATION: VITAL SIGNS: Blood pressure 106/62, respirations 20, pulse 80, temperature 98.7. HEENT: Head is normocephalic. Eyes, pupils are normal. Conjunctivae slightly pale. NECK: JVP low. Carotids equal. THORAX: AP diameter normal. LUNGS: Clear. CARDIOVASCULAR: S1 and S2. ABDOMEN: Soft. Bowel sounds are normal. EXTREMITIES: No clubbing. No cyanosis. LABORATORY DATA: WBC 12.6, hemoglobin 8.8, hematocrit 27.2, platelets 140. Sodium 136, potassium 3.2, BUN , creatinine 0.3, random sugar 184, total bilirubin 5.8. AST 31, ALT 28, alkaline phosphatase 576, total protein 5.2, albumin 2.5. Echocardiogram on 07/22/2017, showed LV EF 55% to 60%, right ventricular systolic pressure at 39 mmHg, [id number] pleural effusion, no pericardial effusion, trace aortic, mitral and tricuspid regurgitation. DIAGNOSES: Status post large volume paracentesis, multiple electrolyte abnormalities including hypokalemia, pancreatic carcinoma with metastasis, protein-calorie malnutrition. PLAN: The patient on monitor did not show any arrhythmia, which arrhythmia was reported by nurses was actually artifact. Increase the patient's nutritional support. We will give extra care therapy and repeat labs in the morning. The patient is on spironolactone 25 b.i.d., Dilantin 150 mg IV b.i.d., furosemide 20 b.i.d., Lovenox 80 mg subcu q. [address] Garces, drill rig operator helper ordered 2 doses of 40 mEq potassium chloride x2, two doses of a total 80 mEq. The patient is also getting potassium in IV fluids. We will repeat SMA-7, magnesium and phosphorus in the morning. We will continue to follow. Jayme Park MD
--- NOTE | 2017-07-27 01:00 | PN ---
SUBJECTIVE: The patient seen and examined on the bedside, looking comfortable, awake and alert. No nausea, vomiting, or diarrhea. Still abdomen is distended. Has loose bowel movements, but no blood in the stool. No headache. No dizziness. No swelling of the legs. PHYSICAL EXAMINATION VITAL SIGNS: Temperature 98.7, pulse 70, respiratory rate 20, blood pressure 106/52, and pulse oximetry 97%. HEENT: Head is normocephalic and atraumatic. Eyes: PERRLA. Extraocular muscles intact. Conjunctivae clear. Nose patent. Mucous membrane moist. NECK: Supple. No carotid bruit. No JVD or thyromegaly. CHEST: Bilaterally symmetrical. HEART: S1 and S2 positive. LUNGS: Clear to auscultation. ABDOMEN: Soft. Bowel sounds are positive. No organomegaly. EXTREMITIES: No edema. No cyanosis. NEUROLOGIC: The patient is awake and alert. Moving all four extremities. No focal deficits. MEDICATIONS: Vitamin D, Aricept, Lovenox, Lasix, Dilantin, insulin, lactulose, Lidoderm, Zofran, Protonix, potassium, spirolactone, thiamine. LABORATORY DATA: White blood cell 12.6, hemoglobin 8.8, hematocrit 27.2, platelets 140. Sodium 136, potassium 3.2, BUN 2, creatinine 0.3, and glucose 127. ASSESSMENT AND PLAN: The patient is a 56-year-old male with hypokalemia, hyperglycemia; leukocytosis, anemia; history of pancreatic cancer with metastasis; superior mesenteric vein thrombosis; history of altered mental status; colitis, Clostridium difficile toxin negative; left leg deep venous thrombosis, received dose of Lovenox; abdominal ascites, status post paracentesis; hypokalemia; hepatic encephalopathy; sepsis; abnormal liver function tests; history of biliary obstruction, rule out stent obstruction, dementia; schizophrenia; currently on PPI, clear liquid, on Lovenox; continue lactulose; repeat electrolytes; IV antibiotics as per ID; on Aldactone; pending liver function tests; GI spoke to POA regarding ERCP. We will follow up. Michelle Castillo MD
--- NOTE | 2017-07-27 01:44 | PN ---
SUBJECTIVE: A 56-year-old male with pancreatic cancer admitted with altered mental status, SIRS/sepsis, abdominal ascites. Nephrology initially consulted for oliguria, which has since resolved, now following for electrolyte imbalance. The patient per nursing staff has been eating well. Had multiple episodes of diarrhea overnight. PHYSICAL EXAMINATION: VITAL SIGNS: This morning, blood pressure 106/62, heart rate 80, respirations 20, temperature 98.7, O2 sat 97% on room air. GENERAL: No distress. Lying comfortably in bed. HEENT: Moist mucous membranes, nonicteric. RESPIRATORY: Minimal rales appreciated. No respiratory distress. HEART: S1 and S2. No murmurs, no gallops, no rubs. GI: Abdomen is soft, nontender. : Mendez in place. EXTREMITIES: [id number] lower leg edema. LABORATORY DATA: This morning, chemistry panel; sodium 136, potassium 3.2, chloride 106, bicarbonate 22, BUN 2, creatinine 0.3, glucose 127, calcium 7.7, albumin 2.5. ASSESSMENT AND PLAN: 1. Oliguria, resolved. 2. Hypernatremia, resolved. 3. Hypokalemia, improved after aggressive potassium replenishment yesterday, but still with mildly low potassium level. Currently on IV fluids with 20 mEq/L of KCl added. Giving p.o. potassium 40 mEq x2 doses. Consider decreasing frequency of lactulose administration to achieve no more than 3 bowel movements per day. 4. Hypotension, improved, currently on NS at 80 mL/hour. Continue for now. 5. Systemic inflammatory response syndrome/sepsis. No recent positive blood cultures. C. diff drawn 2 days ago was negative. Follow up with ID. 6. Abdominal ascites. The patient was started on diuretics to prevent recurrence of ascites ; however, in the setting of hypotension, diuretics are currently on hold. Restart when the patient stabilizes. Som Garces MD
[2017-07-27] MEDS: SODIUM CHLORIDE 0.9% IVPB SCH ×3 (05:52→17:27)
[2017-07-27] MEDS: PHENYTOIN IVPB SCH ×3 (05:52→17:27)
[2017-07-27] MEDS: Enoxaparin 80 mg Syringe SC SCH ×2 (06:00→17:26)
[2017-07-27] MEDS: Pantoprazole 40 mg EC Tab PO SCH ×2 (06:01→17:28)
[2017-07-27 06:24] LABS: BASO # 0.02 K/mm3 (0.0-2.0); BASO % 0.3 % (0.0-3.0); EOS # 0.1 (0.0-0.7); EOS % 1.2 % (1.5-5.0); GRAN # 6.16 (1.4-6.5); GRAN % 82.8 % (50.0-68.0); HEMATOCRIT 28.9 % (42.0-52.0); LYMPH # 0.5 (1.2-3.4); LYMPH % 6.2 % (22.0-35.0); MEAN CELL VOLUME 86.3 fl (80.0-105.0); MEAN CORPUSCULAR HEMOGLOBIN 28.4 pg (25.0-35.0); MEAN CORPUSCULAR HGB CONC 32.9 g/dl (31.0-37.0); MEAN PLATELET VOLUME 9.9 fl (7.0-11.0); MONO # 0.7 (0.1-0.6); MONO % 9.5 % (1.0-6.0); WHITE BLOOD COUNT 7.4 10^3/ul (4.5-11.0)
[2017-07-27 06:46] LABS: ALB/GLOB RATIO 0.9 (1.1-1.8); ALKALINE PHOSPHATASE 683 U/L (38-126); ALT/SGPT 27 U/L (7-56); AST/SGOT 41 U/L (17-59); BILIRUBIN,DIRECT 5.2 mg/dL (0.0-0.4); BILIRUBIN,TOTAL 6.3 mg/dL (0.2-1.3); BLOOD UREA NITROGEN 2 mg/dL (7-21); CALCIUM 7.9 mg/dL (8.4-10.5); CARBON DIOXIDE 23 mmol/L (21-33); CHLORIDE 106 mmol/L (98-107); GFR AFRICAN-AMERICAN > 60; GLUCOSE,RANDOM 115 mg/dL (70-110); MAGNESIUM 1.8 mg/dL (1.7-2.2); PHOSPHOROUS 1.7 mg/dL (2.5-4.5); POTASSIUM 3.7 mmol/L (3.6-5.0); SODIUM 137 mmol/L (132-148); TOTAL PROTEIN 5.8 g/dL (5.8-8.3)
[2017-07-27] MEDS: Insulin Reg-LOW-Coverage SC SCH ×4 (07:55→22:28)
--- NOTE | 2017-07-27 08:09 | PN ---
DATE: 07/26/2017 This is [facility]'s hospital visit on the medical floor. For Dr. Finch. SUBJECTIVE: The patient is a 56-year-old, [place] Islander-speaking male seen lying awake in bed in no acute distress with probable reaccumulation of his ascitic fluid as he is status post paracentesis as per Dr. Raghu Luque for 4.1 L earlier in this hospital stay with reaccumulation. He is otherwise in no acute distress, resting comfortably with the driver messenger reporting that the patient is speaking gibberish with no specific intent to his words. He does have a history of schizophrenia. He appears to be comfortable. OBJECTIVE/PHYSICAL EXAMINATION: VITAL SIGNS: Temperature 98.4, pulse 80, respirations 20, blood pressure 114/74, and pulse oximetry 99%. HEENT: Unremarkable. NECK: Supple. HEART: Regular rate. LUNGS: Minimal decreased breath sounds at the bases. ABDOMEN: Distended with positive ascitic fluid wave. EXTREMITIES: No edema significant. NEUROLOGIC: Awake and alert, but confused. LABORATORY DATA: The patient's labs were done for CBC two days prior with a white blood cell count of 12.6, hemoglobin of 8.8, hematocrit of 27.2, and platelet count of 140,000 with a chem metabolic panel done today showing a potassium of 3.2, non-fasting glucose 145, total bilirubin of 5.8, with a of 4.7, and alkaline phosphatase 576. The patient's pathology on his paracentesis has not been returned. ASSESSMENT: For this patient is that of ascites secondary to pancreatic carcinoma with liver metastasis, dementia, seizure disorder, schizophrenia, history of neurosyphilis, systemic inflammatory response syndrome with sepsis recuperated, diabetes, and hypertension. PLAN: For this patient after conversation with Dr. Finch is to continue with present medical regimen with consideration for [place] catheter and re-tapping of his ascites as indicated. We will also ask his labs to be drawn in the morning to monitor his anemic indices which may have been heme-concentrated. Prognosis for this patient is guarded. Wild Santillan MD [facility] # [id number]
[2017-07-27] MEDS: Thiamine 100 mg/ml Inj IM SCH ×2 (10:34→17:27)
[2017-07-27] MEDS: Calcium-Vit D 250 mg-125 Units Tab UD PO SCH (10:35)
[2017-07-27] MEDS: Lidocaine 5% Patch TD SCH (10:35)
[2017-07-27] MEDS ORDERED: Sodium Phosphate 15 MMOLE in Sodium Chloride 0.9% 250 ML IVPB ONE (11:35)
--- NOTE | 2017-07-27 12:32 | PN ---
DATE: 07/27/2017 LOCATION: The patient is in room 370, bed 1. REASON FOR CONSULTATION: Followup cardiac evaluation, rule out arrhythmia. SUBJECTIVE: The patient is lying flat in bed without any chest pain, shortness of breath, palpitation, or dizziness. PHYSICAL EXAMINATION: VITAL SIGNS: Blood pressure 128/74, respirations 20, pulse 90, and temperature 97.8. HEENT: Head is normocephalic. Eyes, pupils are normal. Conjunctivae slightly pale. NECK: JVP low. Carotid equal. THORAX: AP diameter normal. LUNGS: Clear. CARDIOVASCULAR: S1 and S2. ABDOMEN: Protuberant. Ascites. EXTREMITIES: No clubbing, no cyanosis, or edema noted on the legs. LABORATORY DATA: WBC 7.4, hemoglobin 9.5, hematocrit 28.9, and platelets 173. Sodium 137, potassium 3.7, BUN 2, creatinine 0.3, random sugar 218, calcium 7.9, albumin also low at 2.7, total protein 5.8, total bilirubin is 6.3, AST 47, ALT 27, and alkaline phosphatase 683. DIAGNOSES: Pancreatic carcinoma with metastasis, ascites, status post large volume paracentesis, protein-calorie malnutrition. Consult was called to rule out arrhythmia, which the nurse has noted that it was ventricular tachycardia, but actually it was artifact. There was no evidence of ventricular tachycardia or any other arrhythmia on the telemetry. PLAN: Plan is that the patient has no documented arrhythmia, the arrhythmia for which consult was called was actually artifact. Suggest to increase the patient's nutritional support. The patient is already getting spironolactone 25 b.i.d., Dilantin 150 mg IV b.i.d., lactulose 20 g p.o. b.i.d., furosemide has been on hold as per Dr. Garces, singing telegram performer, Lovenox 80 mg subcutaneous q.12 hours, Protonix 40 b.i.d. The patient is receiving 0.9% saline with potassium 80 mEq per hour, and thiamine 100 mg IM b.i.d. We will continue present therapy. We will follow up. Jayme Park MD [facility] # [id number]
--- NOTE | 2017-07-27 14:18 | CP.PCM.PN ---
Subjective - Date & Time of Evaluation Date of Evaluation: 07/27/17 Time of Evaluation: 11:05 - Subjective Subjective: Comfortable in bed, not in distress, afebrile. Objective - Vital Signs/Intake and Output Vital Signs (last 24 hours): Temp Pulse Resp BP Pulse Ox 97.8 F 90 20 128/74 100 07/27/17 06:00 07/27/17 06:00 07/27/17 06:00 07/27/17 06:00 07/27/17 06:00 Intake and Output: 07/27/17 07/27/17 06:59 18:59 Intake Total 7180 Output Total 1950 Balance 5230 - Medications Medications: Current Medications Calcium/Vitamin D (Oscal-D 250 Mg-125 Units Tab) 1 tab PO DAILY [facility] Last Admin: 07/26/17 09:53 Dose: 1 tab Donepezil HCl (Aricept) 10 mg PO HS [facility] Last Admin: 07/26/17 21:52 Dose: 10 mg Enoxaparin Sodium (Lovenox) 80 mg SC Q12H [facility] PRN Reason: Protocol Last Admin: 07/27/17 06:00 Dose: 80 mg Furosemide (Lasix) 20 mg PO BID [facility] Last Admin: 07/23/17 10:54 Dose: Not Given Phenytoin 150 mg/ Sodium (Chloride) 53 mls @ 104 mls/hr IVPB 0600,1800 [facility] Last Admin: 07/27/17 05:59 Dose: 104 mls/hr Potassium Chloride 20 meq/ (Sodium Chloride) 1,010 mls @ 80 mls/hr IV .[id number] [facility] Last Admin: 07/27/17 06:00 Dose: 80 mls/hr Insulin Human Regular (Humulin R Low) 0 units SC ACHS [facility] PRN Reason: Protocol Last Admin: 07/27/17 07:55 Dose: Not Given Lactulose (Enulose) 20 gm PO BID [facility] Last Admin: 07/26/17 17:53 Dose: 20 gm Lidocaine (Lidoderm) 1 ea TD DAILY [facility] Last Admin: 07/26/17 09:53 Dose: 1 ea Ondansetron HCl (Zofran Inj) 4 mg IVP Q6H PRN PRN Reason: Nausea/Vomiting Last Admin: 07/20/17 10:50 Dose: 4 mg Pantoprazole Sodium (Protonix Ec Tab) 40 mg PO 0600,1600 [facility] Last Admin: 07/27/17 06:01 Dose: 40 mg Spironolactone (Aldactone) 25 mg PO BID [facility] Last Admin: 07/23/17 10:51 Dose: 25 mg Thiamine HCl (Vitamin B1 Inj) 100 mg IM BID [facility] Last Admin: 07/26/17 17:54 Dose: 100 mg - Labs Labs: 07/27/17 06:12 07/27/17 06:12 PT 13.2 Seconds (9.9-11.8) H 07/12/17 09:00 INR 1.22 (0.93-1.08) H 07/12/17 09:00 APTT 26.1 Seconds (23.7-30.8) 07/12/17 09:00 - Constitutional Appears: Non-toxic, No Acute Distress - Head Exam Head Exam: NORMAL INSPECTION - ENT Exam ENT Exam: Mucous Membranes Moist - Neck Exam Neck Exam: absent: Meningismus - Respiratory Exam Respiratory Exam: Decreased Breath Sounds - Cardiovascular Exam Cardiovascular Exam: +S1, +S2 - GI/Abdominal Exam GI & Abdominal Exam: Distended, Soft. absent: Tenderness Assessment and Plan - Assessment and Plan (Free Text) Plan: Assessment new onset Systemic Inflammatory Response Syndrome, with no evidence of new onset sepsis acute encephalopathy probably due to hepatic encephalopathy pancreatic cancer with liver metastases S/P chemotherapy and radiation HTN DM dementia history of neurosyphilis seizure disorder asthma schizophrenia Plan repeat blood cx, urine cx are negative; stool for C. diff. is negative; repeat CXR does not show infiltrates will continue to monitor off antibiotics and observe
--- NOTE | 2017-07-27 17:03 | CP.PCM.PN ---
<Vale Lo - Last Filed: 07/27/17 17:02> Subjective - Date & Time of Evaluation Date of Evaluation: 07/27/17 Time of Evaluation: 11:00 - Subjective Subjective: Seen and examined at the bedside earlier today, the chart was reviewed. Patient is awake and alert and denies abdominal pain, tolerating oral intake, no reports of overt GI bleed. No acute overnight events reported. Objective - Vital Signs/Intake and Output Vital Signs (last 24 hours): Temp Pulse Resp BP Pulse Ox 97.8 F 92 H 20 128/74 100 07/27/17 06:00 07/27/17 10:00 07/27/17 06:00 07/27/17 06:00 07/27/17 06:00 Intake and Output: 07/27/17 07/27/17 06:59 18:59 Intake Total 7180 Output Total 1950 Balance 5230 - Medications Medications: Current Medications Calcium/Vitamin D (Oscal-D 250 Mg-125 Units Tab) 1 tab PO DAILY [facility] Last Admin: 07/27/17 10:35 Dose: 1 tab Donepezil HCl (Aricept) 10 mg PO HS [facility] Last Admin: 07/26/17 21:52 Dose: 10 mg Enoxaparin Sodium (Lovenox) 80 mg SC Q12H [facility] PRN Reason: Protocol Last Admin: 07/27/17 06:00 Dose: 80 mg Furosemide (Lasix) 20 mg PO BID [facility] Last Admin: 07/23/17 10:54 Dose: Not Given Phenytoin 150 mg/ Sodium (Chloride) 53 mls @ 104 mls/hr IVPB 0600,1800 [facility] Last Admin: 07/27/17 05:59 Dose: 104 mls/hr Potassium Chloride 20 meq/ (Sodium Chloride) 1,010 mls @ 80 mls/hr IV .[id number] [facility] Last Admin: 07/27/17 06:00 Dose: 80 mls/hr Sodium Phosphate 15 mmole/ (Sodium Chloride) 255 mls @ 42.5 mls/hr IVPB ONCE ONE Stop: 07/27/17 17:34 Last Admin: 07/27/17 13:21 Dose: 42.5 mls/hr Insulin Human Regular (Humulin R Low) 0 units SC ACHS [facility] PRN Reason: Protocol Last Admin: 07/27/17 12:12 Dose: 3 units Lactulose (Enulose) 20 gm PO BID [facility] Last Admin: 07/27/17 10:34 Dose: 20 gm Lidocaine (Lidoderm) 1 ea TD DAILY [facility] Last Admin: 07/27/17 10:35 Dose: 1 ea Ondansetron HCl (Zofran Inj) 4 mg IVP Q6H PRN PRN Reason: Nausea/Vomiting Last Admin: 07/20/17 10:50 Dose: 4 mg Pantoprazole Sodium (Protonix Ec Tab) 40 mg PO 0600,1600 [facility] Last Admin: 07/27/17 06:01 Dose: 40 mg Rifaximin (Xifaxan) 550 mg PO BID [facility] PRN Reason: Protocol Last Admin: 07/27/17 13:16 Dose: 550 mg Spironolactone (Aldactone) 25 mg PO BID [facility] Last Admin: 07/23/17 10:51 Dose: 25 mg Thiamine HCl (Vitamin B1 Inj) 100 mg IM BID [facility] Last Admin: 07/27/17 10:34 Dose: 100 mg - Labs Labs: 07/27/17 06:12 07/27/17 06:12 PT 13.2 Seconds (9.9-11.8) H 07/12/17 09:00 INR 1.22 (0.93-1.08) H 07/12/17 09:00 APTT 26.1 Seconds (23.7-30.8) 07/12/17 09:00 - Constitutional Appears: No Acute Distress - Eye Exam Eye Exam: Scleral icterus - ENT Exam ENT Exam: Mucous Membranes Moist - Neck Exam Neck Exam: Normal Inspection - Respiratory Exam Respiratory Exam: Clear to Ausculation Bilateral, NORMAL BREATHING PATTERN. absent: Respiratory Distress - Cardiovascular Exam Cardiovascular Exam: +S1, +S2 - GI/Abdominal Exam GI & Abdominal Exam: Distended, Soft, Normal Bowel Sounds. absent: Guarding, Tenderness, Rebound - Extremities Exam Extremities Exam: Normal Capillary Refill, Pedal Edema (trace). absent: Calf Tenderness - Neurological Exam Neurological Exam: Alert, Awake (confused) - Skin Skin Exam: Dry (jaundice), Warm Assessment and Plan - Assessment and Plan (Free Text) Assessment: ASSESSMENT: Metastatic pancreatic cancer with superior mesenteric vein thrombosis Left leg DVT AMS secondary to Hepatic encephalopathy, secondary to sepsis Elevated liver enzymes, likely secondary to meta possible stent obstruction, CT scan scan on 06/2017 shows CBD is patent and probably gravel versus Dementia secondary to Neurosyphillis seizure disorder Schizophrenia Diabetes mellitus PLAN: Continue PPI advance diet to full liq, low fat on Lovenox Continue lactulose bid on Dilantin Continue Xifaxan replace electrolytes as needed IV antibiotics as per ID on Aldactone/Lasix, dependent of BP perameters Trend LFTs plan for possible ERCP 07/28/17 Seen and discussed with Dr. Wilson. <Harjeet Guerrero V - Last Filed: 07/27/17 23:52> Objective - Vital Signs/Intake and Output Vital Signs (last 24 hours): Temp Pulse Resp BP Pulse Ox 97.8 F 90 20 130/80 99 07/27/17 20:58 07/27/17 22:00 07/27/17 20:58 07/27/17 20:58 07/27/17 20:58 Intake and Output: 07/27/17 07/28/17 18:59 06:59 Intake Total 1020 Output Total 2000 Balance -980 - Medications Medications: Current Medications Calcium/Vitamin D (Oscal-D 250 Mg-125 Units Tab) 1 tab PO DAILY [facility] Last Admin: 07/27/17 10:35 Dose: 1 tab Donepezil HCl (Aricept) 10 mg PO HS [facility] Last Admin: 07/27/17 22:29 Dose: 10 mg Enoxaparin Sodium (Lovenox) 80 mg SC Q12H [facility] PRN Reason: Protocol Last Admin: 07/27/17 17:26 Dose: 80 mg Furosemide (Lasix) 20 mg PO BID [facility] Last Admin: 07/23/17 10:54 Dose: Not Given Phenytoin 150 mg/ Sodium (Chloride) 53 mls @ 104 mls/hr IVPB 0600,1800 [facility] Last Admin: 07/27/17 17:27 Dose: 104 mls/hr Insulin Human Regular (Humulin R Low) 0 units SC ACHS [facility] PRN Reason: Protocol Last Admin: 07/27/17 22:28 Dose: Not Given Lactulose (Enulose) 20 gm PO BID [facility] Last Admin: 07/27/17 19:13 Dose: Not Given Lidocaine (Lidoderm) 1 ea TD DAILY [facility] Last Admin: 07/27/17 10:35 Dose: 1 ea Ondansetron HCl (Zofran Inj) 4 mg IVP Q6H PRN PRN Reason: Nausea/Vomiting Last Admin: 07/20/17 10:50 Dose: 4 mg Pantoprazole Sodium (Protonix Ec Tab) 40 mg PO 0600,1600 [facility] Last Admin: 07/27/17 17:28 Dose: 40 mg Rifaximin (Xifaxan) 550 mg PO BID [facility] PRN Reason: Protocol Last Admin: 07/27/17 17:27 Dose: 550 mg Spironolactone (Aldactone) 25 mg PO BID [facility] Last Admin: 07/23/17 10:51 Dose: 25 mg Thiamine HCl (Vitamin B1 Inj) 100 mg IM BID [facility] Last Admin: 07/27/17 17:27 Dose: 100 mg - Labs Labs: 07/27/17 06:12 07/27/17 06:12 PT 13.2 Seconds (9.9-11.8) H 07/12/17 09:00 INR 1.22 (0.93-1.08) H 07/12/17 09:00 APTT 26.1 Seconds (23.7-30.8) 07/12/17 09:00 Attending/Attestation - Attestation I have personally seen and examined this patient.: Yes I have fully participated in the care of the patient.: Yes I have reviewed all pertinent clinical information, including history, physical exam and plan: Yes Notes (Text): This is an addendum to GI progress report dictated by Vale Lo APN.The patient was seen and examined earlier. Medical records, lab studies, imagings were reviewed. Last 24 hours events reviewed. Agreed with the above treatment plan as outlined in Vale oL APN's notes the with the addition of the following on examination abdomen soft no tenderness less distended LFTs shows upward trend we discussed with the patient's POA regarding the ERCP we will hold a.m. dose of Lovenoxdose of her Lovenox 07/27/17 23:49
--- NOTE | 2017-07-27 21:13 | CP.PCM.PN ---
Subjective - Date & Time of Evaluation Date of Evaluation: 07/27/17 Time of Evaluation: 11:00 - Subjective Subjective: Patient having less BM; eating well; Objective - Vital Signs/Intake and Output Vital Signs (last 24 hours): Temp Pulse Resp BP Pulse Ox 97.8 F 88 20 130/80 99 07/27/17 20:58 07/27/17 20:58 07/27/17 20:58 07/27/17 20:58 07/27/17 20:58 - Medications Medications: Current Medications Calcium/Vitamin D (Oscal-D 250 Mg-125 Units Tab) 1 tab PO DAILY [facility] Last Admin: 07/27/17 10:35 Dose: 1 tab Donepezil HCl (Aricept) 10 mg PO HS [facility] Last Admin: 07/26/17 21:52 Dose: 10 mg Enoxaparin Sodium (Lovenox) 80 mg SC Q12H [facility] PRN Reason: Protocol Last Admin: 07/27/17 17:26 Dose: 80 mg Furosemide (Lasix) 20 mg PO BID [facility] Last Admin: 07/23/17 10:54 Dose: Not Given Phenytoin 150 mg/ Sodium (Chloride) 53 mls @ 104 mls/hr IVPB 0600,1800 [facility] Last Admin: 07/27/17 17:27 Dose: 104 mls/hr Insulin Human Regular (Humulin R Low) 0 units SC ACHS [facility] PRN Reason: Protocol Last Admin: 07/27/17 17:29 Dose: Not Given Lactulose (Enulose) 20 gm PO BID [facility] Last Admin: 07/27/17 19:13 Dose: Not Given Lidocaine (Lidoderm) 1 ea TD DAILY [facility] Last Admin: 07/27/17 10:35 Dose: 1 ea Ondansetron HCl (Zofran Inj) 4 mg IVP Q6H PRN PRN Reason: Nausea/Vomiting Last Admin: 07/20/17 10:50 Dose: 4 mg Pantoprazole Sodium (Protonix Ec Tab) 40 mg PO 0600,1600 [facility] Last Admin: 07/27/17 17:28 Dose: 40 mg Rifaximin (Xifaxan) 550 mg PO BID [facility] PRN Reason: Protocol Last Admin: 07/27/17 17:27 Dose: 550 mg Spironolactone (Aldactone) 25 mg PO BID [facility] Last Admin: 07/23/17 10:51 Dose: 25 mg Thiamine HCl (Vitamin B1 Inj) 100 mg IM BID [facility] Last Admin: 07/27/17 17:27 Dose: 100 mg - Labs Labs: 07/27/17 06:12 07/27/17 06:12 PT 13.2 Seconds (9.9-11.8) H 07/12/17 09:00 INR 1.22 (0.93-1.08) H 07/12/17 09:00 APTT 26.1 Seconds (23.7-30.8) 07/12/17 09:00 Assessment and Plan (1) ANA MARIA (acute kidney injury) Status: Resolved (2) Hypernatremia Status: Resolved (3) Hypokalemia Assessment & Plan: Much improved with decreasing loose BM, monitor; Status: Acute (4) Hypotension Assessment & Plan: Will d/c IVF as patient eating well and having less GI losses; Status: Resolved (5) SIRS (systemic inflammatory response syndrome) Status: Acute (6) Hypophosphatemia Assessment & Plan: Giving dose of IV sodium phosphate; Status: Acute
--- NOTE | 2017-07-28 02:40 | PN ---
DATE: 07/27/2017 This is the patient's hospital visit on the medical floor. For Dr. Finch. SUBJECTIVE: The patient is a 56-year-old male seen lying supine, but awake in bed, in no acute distress this visit. He is being followed for his pancreatic CA with liver metastasis with possible repeat paracentesis in near future as per Dr. Raghu Luque. PHYSICAL EXAMINATION GENERAL: He is in no acute distress. VITAL SIGNS: Temperature 97.8, pulse 88, respirations 20, blood pressure 130/80, pulse ox 99%. HEENT: Unremarkable. NECK: Supple. HEART: Regular rate. LUNGS: Clear. ABDOMEN: Distended. Positive ascitic fluid wave. EXTREMITIES: Faint +1 edema. NEUROLOGIC: Awake, alert, but confused. LABORATORY DATA: The patient's labs were done. White blood cell count of 7.4, hemoglobin of 9.5, hematocrit of 28.9, platelet count of 173,000 with a chem metabolic panel within normal limits except for a total bilirubin of 6.3 and direct bilirubin of 5.2, alkaline phosphatase 683. Nonfasting glucose of 138. ASSESSMENT: For this patient is that of ascites secondary to pancreatic CA with liver metastasis, dementia, schizophrenia, seizure disorder, history of neurosyphilis, systemic inflammatory response syndrome, status post sepsis, recuperated with diabetes, hypertension. PLAN: To continue present medical regimen, consideration for Aspira catheter for his recurrent ascites as per Dr. Castillo and Dr. Raghu Luque as indicated. We will monitor clinically and with labs. Wild Santillan MD
[2017-07-28] MEDS: Enoxaparin 80 mg Syringe SC SCH (06:39)
[2017-07-28] MEDS: PHENYTOIN IVPB SCH ×2 (06:40→21:56)
[2017-07-28] MEDS: SODIUM CHLORIDE 0.9% IVPB SCH ×2 (06:40→21:56)
[2017-07-28 06:58] LABS: BASO # 0.01 K/mm3 (0.0-2.0); BASO % 0.1 % (0.0-3.0); EOS # 0.1 (0.0-0.7); EOS % 0.7 % (1.5-5.0); GRAN # 6.87 (1.4-6.5); GRAN % 84.5 % (50.0-68.0); HEMATOCRIT 24.5 % (42.0-52.0); LYMPH # 0.5 (1.2-3.4); MEAN CELL VOLUME 85.7 fl (80.0-105.0); MEAN CORPUSCULAR HEMOGLOBIN 28.3 pg (25.0-35.0); MEAN CORPUSCULAR HGB CONC 33.1 g/dl (31.0-37.0); MEAN PLATELET VOLUME 9.3 fl (7.0-11.0); MONO # 0.7 (0.1-0.6); MONO % 8.7 % (1.0-6.0); RED CELL DISTRIBUTION WIDTH 22.8 % (11.5-14.5); WHITE BLOOD COUNT 8.1 10^3/ul (4.5-11.0)
[2017-07-28 07:06] LABS: INR 1.84 (0.93-1.08)
[2017-07-28 07:15] LABS: ALB/GLOB RATIO 0.9 (1.1-1.8); BILIRUBIN,DIRECT 5.4 mg/dL (0.0-0.4); BILIRUBIN,TOTAL 6.5 mg/dL (0.2-1.3); TOTAL PROTEIN 5.2 g/dL (5.8-8.3)
--- NOTE | 2017-07-28 08:27 | PN ---
DATE: 07/27/2017 SUBJECTIVE: The patient is a 56-year-old male. The patient is seen and examined at the bedside. No change in the status, not in distress. No nausea, vomiting, or diarrhea. No headache. No dizziness. Looks comfortable. Awake and alert. PHYSICAL EXAMINATION: VITAL SIGNS: Temperature 97.8, pulse 90, respiratory rate 20, blood pressure 120/74, pulse oxymetry 100%. HEENT: Head, normocephalic and atraumatic. Eyes, PERRLA. Extraocular muscles intact. Conjunctivae clear. Nose patent. Mucous membranes moist. NECK: Supple. No carotid bruits. No JVD or thyromegaly. CHEST: Bilaterally symmetrical. HEART: S1 and S2 positive. LUNGS: Clear to auscultation. ABDOMEN: Soft. Bowel sounds positive. No organomegaly. EXTREMITIES: No edema. No cyanosis. NEUROLOGICAL: The patient is awake and alert. Moving all 4 extremities. No focal deficits. MEDICATIONS: Aricept, Lovenox, Lasix chloride, NS, insulin, Enulose, Lidoderm, Zofran, Protonix, and Aldactone. LABORATORY DATA: White blood cell is 7.4, hemoglobin is 9. 5, hematocrit 28.9, and platelets 173. Sodium 137, potassium 3.7, BUN 2, creatinine 0.3, and glucose 115. ASSESSMENT AND PLAN: The patient is a 56 years old male with anemia, hyperglycemia, has a new onset systemic inflammatory response syndrome with no evidence of new onset sepsis, acute encephalopathy probably due to hepatic encephalopathy, pancreatic cancer with liver metastasis, status post chemotherapy or radiation therapy; hypertension, dementia, history of neurosyphilis, seizure disorder, asthma, schizophrenia; ascites, status post paracentesis, status post chemotherapy. Repeat blood cultures. Urine negative. Stool for Clostridium difficile cytotoxin is negative. Repeat chest x-ray does not show any infiltrates. The patient is not getting antibiotic, monitoring of the antibiotic by infectious disease, gastrointestinal and deep venous thrombosis prophylaxis. Repeat labs. We will follow up. Michelle Castillo MD < MTDD
[2017-07-28] MEDS: Insulin Reg-LOW-Coverage SC SCH ×2 (08:31→11:49)
--- NOTE | 2017-07-28 09:01 | CP.PCM.PN ---
Subjective - Date & Time of Evaluation Date of Evaluation: 07/28/17 Time of Evaluation: 09:00 - Subjective Subjective: PGY-[address] Garces's Nephrology Service: Pt seen and examined at bedside. Pt for ERCP today. Nursing reports no acute events overnight. He denies complaints at this time. Objective - Vital Signs/Intake and Output Vital Signs (last 24 hours): Temp Pulse Resp BP Pulse Ox 97.8 F 88 20 130/80 99 07/27/17 20:58 07/28/17 06:00 07/27/17 20:58 07/27/17 20:58 07/27/17 20:58 Intake and Output: 07/28/17 07/28/17 06:59 18:59 Intake Total 1020 Output Total 2000 Balance -980 - Medications Medications: Current Medications Calcium/Vitamin D (Oscal-D 250 Mg-125 Units Tab) 1 tab PO DAILY [facility] Last Admin: 07/27/17 10:35 Dose: 1 tab Donepezil HCl (Aricept) 10 mg PO HS [facility] Last Admin: 07/27/17 22:29 Dose: 10 mg Enoxaparin Sodium (Lovenox) 80 mg SC Q12H [facility] PRN Reason: Protocol Last Admin: 07/28/17 06:39 Dose: Not Given Furosemide (Lasix) 20 mg PO BID [facility] Last Admin: 07/23/17 10:54 Dose: Not Given Phenytoin 150 mg/ Sodium (Chloride) 53 mls @ 104 mls/hr IVPB 0600,1800 [facility] Last Admin: 07/28/17 06:40 Dose: 104 mls/hr Insulin Human Regular (Humulin R Low) 0 units SC ACHS [facility] PRN Reason: Protocol Last Admin: 07/28/17 08:31 Dose: Not Given Lactulose (Enulose) 20 gm PO BID [facility] Last Admin: 07/27/17 19:13 Dose: Not Given Lidocaine (Lidoderm) 1 ea TD DAILY [facility] Last Admin: 07/27/17 10:35 Dose: 1 ea Ondansetron HCl (Zofran Inj) 4 mg IVP Q6H PRN PRN Reason: Nausea/Vomiting Last Admin: 07/20/17 10:50 Dose: 4 mg Pantoprazole Sodium (Protonix Ec Tab) 40 mg PO 0600,1600 [facility] Last Admin: 07/27/17 17:28 Dose: 40 mg Rifaximin (Xifaxan) 550 mg PO BID [facility] PRN Reason: Protocol Last Admin: 07/27/17 17:27 Dose: 550 mg Spironolactone (Aldactone) 25 mg PO BID [facility] Last Admin: 07/23/17 10:51 Dose: 25 mg Thiamine HCl (Vitamin B1 Inj) 100 mg IM BID [facility] Last Admin: 07/27/17 17:27 Dose: 100 mg - Labs Labs: 07/28/17 06:46 07/27/17 06:12 PT 19.9 Seconds (9.9-11.8) H 07/28/17 06:46 INR 1.84 (0.93-1.08) H 07/28/17 06:46 APTT 26.1 Seconds (23.7-30.8) 07/12/17 09:00 - Constitutional Appears: Non-toxic, No Acute Distress, Chronically Ill - Head Exam Head Exam: ATRAUMATIC - Eye Exam Eye Exam: Scleral icterus - ENT Exam ENT Exam: Mucous Membranes Moist - Neck Exam Neck Exam: Normal Inspection - Respiratory Exam Respiratory Exam: Clear to Ausculation Bilateral, NORMAL BREATHING PATTERN. absent: Wheezes, Respiratory Distress - Cardiovascular Exam Cardiovascular Exam: REGULAR RHYTHM, +S1, +S2 - GI/Abdominal Exam GI & Abdominal Exam: Distended, Soft, Normal Bowel Sounds - Extremities Exam Extremities Exam: Normal Capillary Refill, Pedal Edema (mild edema) - Back Exam Back Exam: NORMAL INSPECTION - Neurological Exam Neurological Exam: Alert, Awake - Skin Additional comments: Appears jaundiced Assessment and Plan - Assessment and Plan (Free Text) Plan: (1) ANA MARIA (acute kidney injury) Status: Resolved (2) Hypernatremia Status: Resolved (3) Hypotension Assessment & Plan: Well-controlled Patient eating well, no vomiting reported Status: Resolved (4) Hypokalemia Assessment & Plan: Awaiting morning CMP Much improved with decreasing loose BM, monitor; Status: Acute Discussed with Dr. Dez Torres PGY-1
[2017-07-28] MEDS: Calcium-Vit D 250 mg-125 Units Tab UD PO SCH (10:15)
[2017-07-28] MEDS: Thiamine 100 mg/ml Inj IM SCH (10:15)
[2017-07-28] MEDS: Lidocaine 5% Patch TD SCH (10:15)
[2017-07-28] MEDS ORDERED: Indomethacin 50 MG Suppository PR ONE (14:31)
[2017-07-28] MEDS ORDERED: Iohexol 240 (50 ml) ONE (14:32)
[2017-07-28] MEDS ORDERED: Rocuronium 10 mg/ml (5 ml) ONE (14:59)
[2017-07-28] MEDS ORDERED: Propofol 10 mg/ml Inj (20 ML) ONE (14:59)
[2017-07-28] MEDS ORDERED: cefTRIAXone (Rocephin) 1 gm Inj ONE (15:38)
--- NOTE | 2017-07-28 16:32 | CP.PCM.PN ---
Subjective - Date & Time of Evaluation Date of Evaluation: 07/28/17 Time of Evaluation: 11:20 - Subjective Subjective: Comfortable, afebrile, not in distress. Objective - Vital Signs/Intake and Output Vital Signs (last 24 hours): Temp Pulse Resp BP Pulse Ox 97.8 F 88 20 130/80 99 07/27/17 20:58 07/28/17 06:00 07/27/17 20:58 07/27/17 20:58 07/27/17 20:58 Intake and Output: 07/28/17 07/28/17 06:59 18:59 Intake Total 1020 Output Total 2000 Balance -980 - Medications Medications: Current Medications Calcium/Vitamin D (Oscal-D 250 Mg-125 Units Tab) 1 tab PO DAILY [facility] Last Admin: 07/27/17 10:35 Dose: 1 tab Donepezil HCl (Aricept) 10 mg PO HS [facility] Last Admin: 07/27/17 22:29 Dose: 10 mg Enoxaparin Sodium (Lovenox) 80 mg SC Q12H [facility] PRN Reason: Protocol Last Admin: 07/28/17 06:39 Dose: Not Given Furosemide (Lasix) 20 mg PO BID [facility] Last Admin: 07/23/17 10:54 Dose: Not Given Phenytoin 150 mg/ Sodium (Chloride) 53 mls @ 104 mls/hr IVPB 0600,1800 [facility] Last Admin: 07/28/17 06:40 Dose: 104 mls/hr Insulin Human Regular (Humulin R Low) 0 units SC ACHS [facility] PRN Reason: Protocol Last Admin: 07/28/17 08:31 Dose: Not Given Lactulose (Enulose) 20 gm PO BID [facility] Last Admin: 07/27/17 19:13 Dose: Not Given Lidocaine (Lidoderm) 1 ea TD DAILY [facility] Last Admin: 07/27/17 10:35 Dose: 1 ea Ondansetron HCl (Zofran Inj) 4 mg IVP Q6H PRN PRN Reason: Nausea/Vomiting Last Admin: 07/20/17 10:50 Dose: 4 mg Pantoprazole Sodium (Protonix Ec Tab) 40 mg PO 0600,1600 [facility] Last Admin: 07/27/17 17:28 Dose: 40 mg Rifaximin (Xifaxan) 550 mg PO BID [facility] PRN Reason: Protocol Last Admin: 07/27/17 17:27 Dose: 550 mg Spironolactone (Aldactone) 25 mg PO BID [facility] Last Admin: 07/23/17 10:51 Dose: 25 mg Thiamine HCl (Vitamin B1 Inj) 100 mg IM BID [facility] Last Admin: 07/27/17 17:27 Dose: 100 mg - Labs Labs: 07/28/17 06:46 07/27/17 06:12 PT 19.9 Seconds (9.9-11.8) H 07/28/17 06:46 INR 1.84 (0.93-1.08) H 07/28/17 06:46 APTT 26.1 Seconds (23.7-30.8) 07/12/17 09:00 - Constitutional Appears: Non-toxic, No Acute Distress - Head Exam Head Exam: NORMAL INSPECTION - ENT Exam ENT Exam: Mucous Membranes Moist - Neck Exam Neck Exam: absent: Meningismus - Respiratory Exam Respiratory Exam: Decreased Breath Sounds - Cardiovascular Exam Cardiovascular Exam: +S1, +S2 - GI/Abdominal Exam GI & Abdominal Exam: Soft. absent: Tenderness Assessment and Plan - Assessment and Plan (Free Text) Plan: Assessment new onset Systemic Inflammatory Response Syndrome, with no evidence of new onset sepsis acute encephalopathy probably due to hepatic encephalopathy pancreatic cancer with liver metastases S/P chemotherapy and radiation HTN DM dementia history of neurosyphilis seizure disorder asthma schizophrenia Plan repeat blood cx, urine cx are negative; stool for C. diff. is negative; repeat CXR does not show infiltrates will continue to monitor off antibiotics since he is at risk for infection
[2017-07-28 16:39] LABS: BLOOD UREA NITROGEN 2 mg/dL (7-21); CALCIUM 7.5 mg/dL (8.4-10.5); CARBON DIOXIDE 23 mmol/L (21-33); CHLORIDE 102 mmol/L (98-107); GFR AFRICAN-AMERICAN > 60; GLUCOSE,RANDOM 111 mg/dL (70-110); PHOSPHOROUS 2.2 mg/dL (2.5-4.5); SODIUM 134 mmol/L (132-148)
[2017-07-28 17:14] LABS: POTASSIUM 2.7 mmol/L (3.6-5.0)
[2017-07-28] MEDS ORDERED: Morphine 2 mg/ml ISec IVP PRN (17:35)
[2017-07-28] MEDS ORDERED: Sodium Chloride 0.9% 1,000 ML IV SCH (17:45)
--- NOTE | 2017-07-28 20:04 | PN ---
DATE: 07/28/2017 LOCATION: The patient is in room 370, bed 1. REASON FOR CONSULTATION FOLLOWUP: Cardiac evaluation. Rule out cardiac arrhythmia. SUBJECTIVE: Patient denies any cardiac symptoms like chest pain, shortness of breath, palpitation, or dizziness. The patient is lying flat in bed comfortably. PHYSICAL EXAMINATION: VITAL SIGNS: Blood pressure 130/80, respirations 20, pulse 86, temperature 97.8. HEENT: Head is normocephalic. Eyes pupils are normal. Conjunctiva slightly pale. NECK: JVP low. Carotids are equal. Thorax, AP diameter normal. LUNGS: No rales. CARDIOVASCULAR: S1 and S2. ABDOMEN: Protuberant. Ascites present. EXTREMITIES: No clubbing. No cyanosis. DIAGNOSIS: Pancreatic carcinoma with metastasis, ascites status post large volume paracentesis, protein-calorie malnutrition. No arrhythmia so far seen. Initial consult was for arrhythmia, which was actually artifact and was not ventricular tachycardia. PLAN: Continue Dilantin 150 mg IV b.i.d., furosemide 20 mg b.i.d., spironolactone 25 mg b.i.d., Protonix 40 daily. We will continue to follow closely. Jayme Park MD
--- NOTE | 2017-07-28 21:41 | PN ---
DATE: The patient is in room 370, bed #1. REASON FOR CONSULTATION AND FOLLOWUP: This is a 56-year-old male with complex medical history of dementia, schizophrenia, seizure disorder, history of neurosyphilis, systemic inflammatory response syndrome status post sepsis, hypertension, diabetes, now admitted to the hospital for the aforementioned complaint, has now had progression of his pancreatic CA with documented liver metastasis and recurrent ascites. The patient had been followed by us in the outpatient oncology clinic where he initially received gemcitabine-based chemotherapy along with radiation. Subsequent to that, the patient been on carbo-Gemzar, given on every two week basis as an outpatient to recent admission through the hospital. In view of his progressive disease, we had spoken to his healthcare proxy who has been discussed with each time, we have switched treatment, given him treatments as to what further could be done for this patient who in my opinion now has progressive disease and has to be assessed for probably not just palliative care, but for hospice at this time. SUBJECTIVE: The patient is seen lying in bed. He is awake, alert and oriented. Moving all 4 extremities. Through French interpretation, we tried to communicate with him, but he does not make much sense when he is communicating. PHYSICAL EXAMINATION: GENERAL: He is in no acute distress. VITAL SIGNS: Stable as stated on the chart. HEENT: Unremarkable. NECK: Supple. There is no adenopathy. LUNGS: Clear to percussion and auscultation. HEART: Reveals PMI to be in fifth intercostal space inside the midclavicular line. S1 and S2 normal. ABDOMEN: Distended secondary to ascites. He may need a repeat tap. EXTREMITIES: Reveals 1+ edema of the lower extremities. NEUROLOGIC: The patient is awake and alert, but definitely confused. LABORATORY DATA: Reveals hemoglobin, hematocrit and platelets to be stable. Chem metabolic panel reveals a total bilirubin of 6.3 with a direct bilirubin of 5.2. The patient has a metal stent in his common bile duct. Alkaline phosphatase is 663, non-fasting glucose is 138. RECOMMENDATIONS AND SUGGESTIONS: I will speak to PMD Dr. Castillo as well. Spoke to palliative care nurse, . We will try to reach out to the healthcare proxy to see if we can get an okay for the patient to be assessed for hospice at this point and time given fact that from the treatment point of view, we have exhausted some of the standard options that we normally have for pancreatic cancer. If that is not feasible since the patient has other mental issues along with a seizure disorder, we will have the patient be seen by the Bioethics Committee to make further decisions regarding treatment plans. For the time being, we will continue doing what we are doing at this point including supportive care and pain control if need be at this point in time. We will try to followup on Monday regarding what further options we have for this patient since there is nobody else in the immediate family to talk to, we will have to resort to talking to the healthcare proxy. Ge Finch MD
[2017-07-29] MEDS: Insulin Reg-LOW-Coverage SC SCH ×6 (01:47→22:18)
--- NOTE | 2017-07-29 05:29 | PN ---
SUBJECTIVE: The patient is a 56-year-old male. The patient is seen and examined on the bedside, looking comfortable. No change in the status, no fever, no chills. Abdomen is still tense. No nausea, vomiting, or diarrhea. No hematuria, no hematochezia. No swelling of the leg. No chest pain, no palpitation. PHYSICAL EXAMINATION: VITAL SIGNS: Temperature 98.4, pulse 76, blood pressure 116/71, respiratory rate 18. HEENT: Head, normocephalic and atraumatic. Eyes; PERRLA. Extraocular muscles intact. Conjunctivae clear. Nose patent. NECK: Supple. No carotid bruits, JVD, or thyromegaly. CHEST: Bilaterally symmetrical. HEART: S1 and S2 positive. LUNGS: Clear to auscultation. ABDOMEN: Soft. Bowel sounds positive. No organomegaly. EXTREMITIES: No edema. No cyanosis. NEUROLOGIC: The patient is awake and alert. Moving all 4 extremities. No focal deficit. MEDICATIONS: Aldactone, Aricept, lactulose, insulin, Lasix, Lidoderm, Lovenox, morphine sulfate, calcium, Dilantin, Protonix, Rocephin, thiamine, Zofran, LABORATORY DATA: White blood cells 8.1, hemoglobin 8.1, hematocrit 24.5, and platelets 132. Chemistry: Sodium 134, potassium 2.7, BUN 2, creatinine 0.6, glucose 125, calcium 7.5, and phosphorus 2.2. ASSESSMENT AND PLAN: The patient is a 56-year-old male with hypokalemia replaced, hyperglycemia, hypocalcemia, hypophosphatemia, abnormal liver function test trending down, anemia, has dementia, schizophrenia, seizure disorder, history of neurosyphilis, systemic inflammatory response syndrome, status post sepsis, hypertension, was admitted with altered mental status, ascites with paracentesis, pancreatic carcinoma with documented liver metastasis and recurrent ascites, getting chemotherapy as outpatient. Dr. Guerrero called the patient's guardian to make the patient DNR and DNI, but was not successful. Ellyn Mariscal is also working on that, was seen by Dr. Garces. Today, also the patient underwent colonoscopy, ERCP with balloon sweep. EGD shows grade 2 esophageal varices with gastric varices, gastropathy, Carmona esophagus, partially blocked metal stent, tumor growth in the metal stents. The patient's prognosis is poor. Continue present treatment. GI/DVT prophylaxis. Repeat labs. Michelle Castillo MD MTDD
[2017-07-29 08:01] LABS: BASO # 0.01 K/mm3 (0.0-2.0); BASO % 0.1 % (0.0-3.0); EOS # 0.1 (0.0-0.7); EOS % 0.8 % (1.5-5.0); GRAN # 7.08 (1.4-6.5); GRAN % 85.9 % (50.0-68.0); LYMPH # 0.4 (1.2-3.4); LYMPH % 5.1 % (22.0-35.0); MEAN CELL VOLUME 87.1 fl (80.0-105.0); MEAN CORPUSCULAR HEMOGLOBIN 28.8 pg (25.0-35.0); MEAN PLATELET VOLUME 9.4 fl (7.0-11.0); MONO # 0.7 (0.1-0.6); MONO % 8.1 % (1.0-6.0); RED CELL DISTRIBUTION WIDTH 23.4 % (11.5-14.5); WHITE BLOOD COUNT 8.3 10^3/ul (4.5-11.0)
[2017-07-29 08:24] LABS: ALB/GLOB RATIO 0.8 (1.1-1.8); ALKALINE PHOSPHATASE 604 U/L (38-126); ALT/SGPT 33 U/L (7-56); AST/SGOT 36 U/L (17-59); BILIRUBIN,TOTAL 6.9 mg/dL (0.2-1.3); BLOOD UREA NITROGEN 3 mg/dL (7-21); CALCIUM 7.5 mg/dL (8.4-10.5); CARBON DIOXIDE 26 mmol/L (21-33); CHLORIDE 102 mmol/L (95-110); GFR AFRICAN-AMERICAN > 60; GLUCOSE,RANDOM 100 mg/dL (70-110); SODIUM 136 mmol/L (132-148); TOTAL PROTEIN 5.1 g/dL (5.8-8.3)
[2017-07-29 08:34] LABS: POTASSIUM 2.9 mmol/L (3.6-5.0)
[2017-07-29] MEDS ORDERED: Potassium Chloride 40 mEq/30 ml LIQ UD PO ONE ×2 (09:00→11:00)
[2017-07-29] MEDS ORDERED: cefTRIAXone 1 gm 1 GM/100 ML BAG IVPB SCH (10:00)
--- NOTE | 2017-07-29 11:20 | PN ---
DATE: 07/29/2017 SUBJECTIVE: The patient is seen in 372. No fevers or chills. PHYSICAL EXAMINATION: VITAL SIGNS: Temperature is 99, blood pressure is 101/60, respiratory rate of 20, heart rate of 94. HEENT: Unremarkable. NECK: Supple. LUNGS: Decreased breath sounds. HEART: Normal S1 and S2. ABDOMEN: Soft. LABORATORY DATA: Reveals a white count of 8.3, hemoglobin of 7 and platelets of 132. Chemistries reveals a BUN of 3, creatinine of 0.3. Procalcitonin 0.96. Urinalysis is noted and peritoneal fluid is noted. The patient's Doppler have noted. Doppler from 07/23/2017 inclusive thrombus in the left common femoral vein. Dr. Castillo's note is reviewed from yesterday. The patient had underwent ERCP, endoscopy with balloon sweep yesterday, found to have partially blocked metal stent, tumor growth into the metal stents. ASSESSMENT AND PLAN: A 56-year-old male, seen earlier in [facility], bed 1 with systemic inflammatory response syndrome, most likely secondary to new deep venous thrombosis, that was done on 07/23/2017 and the patient with pancreatic cancer with liver metastasis now status post endoscopic retrograde cholangiopancreatography with tumor growth around the metal stent and the patient with hypertension, diabetes, dementia, neurosyphilis, history of seizures, asthma and schizophrenia. Currently off of antibiotics. The patient is on anticoagulation for deep venous thrombosis and IV phenytoin. The patient was given ceftriaxone yesterday for prophylaxis. Overall, prognosis is quite poor, should consider hospice setting. Mir Blanco MD
[2017-07-29] MEDS: Calcium-Vit D 250 mg-125 Units Tab UD PO SCH (11:22)
[2017-07-29] MEDS: Thiamine 100 mg/ml Inj IM SCH ×3 (11:22→20:29)
[2017-07-29] MEDS: Lidocaine 5% Patch TD SCH (11:23)
--- NOTE | 2017-07-29 12:25 | PN ---
DATE: 07/29/2017 LOCATION: The patient in room 370, bed 1. REASON FOR CONSULTATION: Followup cardiac evaluation and rule out cardiac arrhythmia, pancreatic carcinoma with metastasis, ascites. SUBJECTIVE: The patient is lying flat in bed without chest pain, shortness of breath, and palpitations. PHYSICAL EXAMINATION: VITAL SIGNS: Blood pressure 101/62, respirations 20, pulse 80, temperature 99.3. HEENT: Head is normocephalic. Eyes, pupils normal. Conjunctivae slightly pale. NECK: JVP low. Carotid equal. Thorax, AP diameter normal. LUNGS: Clear. CARDIOVASCULAR: S1 and S2. ABDOMEN: Protuberant due to large ascites. EXTREMITIES: No clubbing and no cyanosis. LABORATORY DATA: WBC 8.3, hemoglobin 7.6, hematocrit 23.0, platelets 132. Sodium of 136, potassium 2.9, BUN 3, creatinine 0.3. Glucose 202, total protein 5.1, albumin 2.3. DIAGNOSES: Pancreatic carcinoma with metastasis, ascites, status post large volume paracentesis before, protein-calorie malnutrition. No cardiac arrhythmia noted. Initial cardiac arrhythmia, which was suspected by the nurses as ventricular tachycardia was actually a defect. The patient also has hypokalemia. PLAN: The patient is on spironolactone 25 b.i.d., furosemide [address] Garces, associate professor of musicology ordered IV potassium as well as p.o. potassium. We will repeat CBC, SMA-7 in the morning. We will follow with you. Jayme Park MD
[2017-07-29] MEDS: Enoxaparin 80 mg Syringe SC SCH ×2 (17:02→20:30)
[2017-07-29] MEDS: Pantoprazole 40 mg EC Tab PO SCH ×2 (17:04→20:30)
--- NOTE | 2017-07-29 17:59 | PN ---
DATE: SUBJECTIVE: The patient is a 56-year-old male. The patient is seen and examined at the bedside. Abdomen is distended. Looking comfortable. No nausea, vomiting, or diarrhea. No hematuria or hematochezia. Has abdominal distension. No headache or dizziness. I interviewed the patient with Tamazight-speaking nurse, Hi. No new complaints. Hemoglobin is low, maybe we will give blood transfusion. PHYSICAL EXAMINATION: VITAL SIGNS: Temperature 99.3, pulse 80, blood pressure 101/62, and respiratory rate 20. HEENT: Head is normocephalic and atraumatic. Eyes, PERRLA. Extraocular muscles intact. Conjunctivae clear. Nose patent. NECK: Supple. No carotid bruits, JVD, or thyromegaly. CHEST: Bilaterally symmetrical. HEART: S1 and S2 positive. LUNGS: Clear to auscultation. ABDOMEN: Soft. Bowel sounds positive. No organomegaly. EXTREMITIES: No edema. No cyanosis. NEUROLOGIC: The patient is awake and alert. Moving all 4 extremities. No focal deficit. MEDICATIONS: Aldactone, lactulose, insulin, Lasix, Lidoderm, Lovenox, morphine, calcium, vitamin D, Dilantin, potassium, Protonix, and Zofran. LABORATORY DATA: White blood cells 8.3, hemoglobin 7.6, hematocrit 23.0, and platelets 132. Chemistry: Sodium 136, potassium 2.9, BUN 3, creatinine 0.6, and glucose 202. ASSESSMENT AND PLAN: Mr. John Saha is a 56-year-old male with hypokalemia replaced by the tool maker apprentice, insulin dependent uncontrolled diabetes mellitus, hypocalcemia, hypermagnesemia, anemia, maybe we will give 2 units of packed red blood cells. We will discuss with the tool maker apprentice. History of pancreatic carcinoma with metastasis. Systemic inflammatory response syndrome, most likely secondary to new deep vein thrombosis, Doppler done on 07/23/2017, status post endoscopic retrograde cholangiopancreatography with tumor growth around the metal stent and in the metal stent and the patient with hypertension, neurosyphilis, history of seizures, asthma and schizophrenia. Currently off the antibiotics. The patient got ceftriaxone yesterday for prophylaxis. Prognosis is quite poor. Plan to make the patient DNR and hospice, but getting problem with the state guardian. Dr. Guerrero and Ellyn Mariscal spoke to the state guardian. GI and DVT prophylaxis. Repeat labs. We will follow up. Michelle Castillo MD [place]
[2017-07-29] MEDS: PHENYTOIN IVPB SCH ×2 (18:02→22:15)
[2017-07-29] MEDS: SODIUM CHLORIDE 0.9% IVPB SCH ×2 (18:02→22:15)
[2017-07-29 18:17] LABS: MEAN PLATELET VOLUME 10.1 fl (7.0-11.0); RED CELL DISTRIBUTION WIDTH 22.3 % (11.5-14.5); WHITE BLOOD COUNT 12.1 10^3/ul (4.5-11.0)
[2017-07-29 18:26] LABS: BLOOD UREA NITROGEN 3 mg/dL (7-21); CALCIUM 7.7 mg/dL (8.4-10.5); CARBON DIOXIDE 20 mmol/L (21-33); CHLORIDE 102 mmol/L (98-107); GFR AFRICAN-AMERICAN > 60; GLUCOSE,RANDOM 156 mg/dL (70-110); INR 1.81 (0.93-1.08); MAGNESIUM 1.9 mg/dL (1.7-2.2); PARTIAL THROMBOPLASTIN TIME 32.1 Seconds (23.7-30.8); PHOSPHOROUS 1.9 mg/dL (2.5-4.5); POTASSIUM 3.8 mmol/L (3.6-5.0); SODIUM 136 mmol/L (132-148)
[2017-07-29] MEDS: Pantoprazole 40mg/100ml IVPB 40 MG/100 ML BAG IVPB SCH (18:45)
--- NOTE | 2017-07-29 18:47 | PCM.RRT ---
<Bernadette Davis - Last Filed: 07/29/17 20:06> MANAGER UNIX Nurse Assessment - Situation Date: 07/29/17 Time MANAGER UNIX was called: 17:41 MANAGER UNIX Responder Arrival Time: 17:43 MANAGER UNIX Location:: [address] [place] [address] MANAGER UNIX Reason for Call: Respiratory Distress, Not Responding to Urgent Treatment MANAGER UNIX Called By: RN - IV IV Inserted during MANAGER UNIX?: No - Respiratory Oxygen Delivery Method: Room Air Received Nebulizer Treatments:: No Was the Patient Ventilated with Bag/Mask 100% O2?: No Secretions Suctioned?: Yes Was the Patient Intubated?: No Was the Patient Placed on a Ventilator?: No - Diagnostic Test Ordered EKG: Yes Chest X-Ray: Yes Other Diagnostic Test Ordered: portable abdominal xray - Stat Labs Ordered MANAGER UNIX Stat Labs Ordered: CBC, BMP, PT/PTT CPR started during MANAGER UNIX?: No - Vital Signs Vital Sign: Rapid Response Vital Sign Blood Pressure 123/82 Pulse Rate 98 Respiratory Rate 16 Temperature 98.2 F Oxygen Saturation 97 - Finger Stick Blood Glucose Finger Stick Blood Glucose: 203 - Tina Coma Scale Coma Scale Eye Opening: To verbal stimuli Coma Scale Motor: Movement to pain stimulus Coma Scale Verbal: Inappropriate words - Sepsis Screen Part 2 Sepsis Screen Part 2: Glucose elevated, Pt not on steroids - Time MANAGER UNIX Ended Time MANAGER UNIX Ended: 17:53 - Recommendations 5) MANAGER UNIX Level of Care Recommendations: Transfer to ICU Notifications: Attending Physician (Dr Castillo notified.), Consultations (Dr Guerrero was present.), Family or Designated Caregiver (unbale to reach court appointed guardian.) I.Reason for MANAGER UNIX - A) Acute Change in Patient: (Select all that apply): Staff member or family is worried about patient Subjective: Patient is a 56 y/o with pmh significant for pancreatic cancer metastatic to the liver, hepatic encephalopathy and ascites s/p ERCP day 1, initially presented [facility] with AMS and MANAGER UNIX is being called due to an episode of large black particle emesis mixed with bilious materials. Upon arrival, NGT tube was already inserted by nursing staff. Patient was not in significant distress. Patient was moving his lower extremities grossly. Patient's SBP was in 120s, HR was 97, and patient was saturating at 97% on room air. Dr Cuello and Dr Rios were present for code. Dr Guerrero was also present, and recommended protonix and octreotide drip. CBC , BMP, mag, phos, flat plate abdomen, chest x-ray was obtained. Attempt was made to contact patient's court appointed guardian however no answer ( Left a message for call back). Dr Castillo was made aware. - Neurological Status (Select all that apply): Alert - Respiratory Oxygen Delivery Method: Room Air - Constitutional Appears: No Acute Distress, Older Than Stated Age, Confused, Cachectic, Chronically Ill - Head Head Exam: ATRAUMATIC, NORMAL INSPECTION, NORMOCEPHALIC - Eyes Eye Exam: EOMI, Normal appearance, PERRL, Scleral icterus - Respiratory Exam Respiratory Exam: Clear to Ausculation Bilateral, NORMAL BREATHING PATTERN. absent: Rales, Rhonchi, Wheezes, Respiratory Distress, Stridor - Cardiovascular Exam Cardiovascular Exam: REGULAR RHYTHM, RRR, +S1, +S2. absent: Gallop, Rubs, Murmur - GI/Abdominal Exam GI & Abdominal Exam: Distended, Firm, Rigid, Normal Bowel Sounds. absent: Tenderness Additional comments: + fluid wave. - Neurological Exam Neurological Exam: Alert, Awake Additional exam: Appears confused. - Extremities Exam Extremities Exam: Pedal Edema (+3 pitting edema b/l.) Plan - Assessment of Findings&Treatment Plan Patient is a 56 y/o with pmh significant for pancreatic cancer metastatic to the liver, hepatic encephalopathy and ascites whom presented with AMS, was s/p ERCP day 1 and was found to have esophageal and gastric varices among others. MANAGER UNIX is called on patient due to large emesis consisting of black particles mixed with billous fluid. Patient is afebrile, not distress and is hemodynamically stable. - Dr Guerrero was contacted and is at bed side. - Recommended octreotide and protonix drip. - ICU eval requested, will follow there recommendations. - Will consult surgery for there input. - Pending stat cbc, bmp, pt/in, flat plat and chest x-ray. - Keep NPO, and head of bed elevation above 45 degrees. - NGT to low suction - Aspiration precaution. - Will obtain guaic of the vomitus - Will correct electrolytes accordingly. - s/p 1 unit prbc transfusion as per nursing staff due to hgb of 7.6 this AM , since patient is hemodynamically stable, will hold off transfusion and monitor h/h q6hrs. - Will hold po meds Dr Castillo was notified, attempts were made Patient seen, examined and case discussed with the attending. <Blanca BOCANEGRA,Zoyaglendalevanessa - Last Filed: 07/30/17 10:28> MANAGER UNIX Nurse Assessment - Vital Signs Vital Sign: Rapid Response Vital Sign Blood Pressure 123/82 Pulse Rate 98 Respiratory Rate 16 Temperature 98.2 F Oxygen Saturation 97 Attending/Attestation - Attestation I have personally seen and examined this patient.: Yes I have fully participated in the care of the patient.: Yes I have reviewed all pertinent clinical information, including history, physical exam and plan: Yes Notes (Text): 07/30/17 10:24 56M, poor historian, hx gathered from review of chart. 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 Patient was also evaluated by ICU attending, no need for ICU transfer as patient is hemodynamically stable. Patient PMD was also notified about patient condition and treatment plan. Prognosis is guarded.
--- NOTE | 2017-07-29 21:09 | CP.PCM.PN ---
Subjective - Date & Time of Evaluation Date of Evaluation: 07/29/17 Time of Evaluation: 21:06 - Subjective Subjective: S: It was requested to insert an intravenous catheter. Patient has no acute symptoms now. Medical record reviewed. O: Last Vital Signs 3 Temp 99 F 07/29/17 17:28 Pulse 89 07/29/17 17:28 Resp 20 07/29/17 17:28 BP 125/82 07/29/17 17:28 Pulse Ox 97 07/29/17 16:10 Awake, alert , not in distress. LUNGS: Normal breathing pattern. A: Poor venous access. Encounter for intravenous line placement. P: # 20 angiocath was inserted in left hand. Objective - Vital Signs/Intake and Output Vital Signs (last 24 hours): Temp Pulse Resp BP Pulse Ox 99 F 89 20 125/82 97 07/29/17 17:28 07/29/17 17:28 07/29/17 17:28 07/29/17 17:28 07/29/17 16:10 Intake and Output: 07/29/17 07/30/17 18:59 06:59 Intake Total 2525 Output Total 900 Balance 1625 - Medications Medications: Current Medications Collagenase (Santyl) 1 gm TOP DAILY [facility] Phenytoin 150 mg/ Sodium (Chloride) 53 mls @ 104 mls/hr IVPB 0600,1800 [facility] Last Admin: 07/29/17 18:02 Dose: 104 mls/hr Pantoprazole Sodium (Protonix 40mg Ivpb) 40 mg in 100 mls @ 20 mls/hr IVPB .Q5H [facility] Last Admin: 07/29/17 18:45 Dose: 20 mls/hr Octreotide Acetate 1,250 mcg/ (Sodium Chloride) 252.5 mls @ 5.05 mls/hr IV .Q24H [facility]; 25 MCG/HR PRN Reason: Protocol Last Admin: 07/29/17 19:20 Dose: 25 mcg/hr, 5.05 mls/hr Ceftriaxone Sodium (Rocephin 1 Gram Ivpb) 1 gm in 100 mls @ 100 mls/hr IVPB DAILY [facility] PRN Reason: Protocol Insulin Human Regular (Humulin R Low) 0 units SC ACHS [facility] PRN Reason: Protocol Last Admin: 07/29/17 17:04 Dose: 2 units Lactulose (Enulose) 20 gm PO BID [facility] Last Admin: 07/29/17 17:10 Dose: Not Given Lidocaine (Lidoderm) 1 ea TD DAILY [facility] Last Admin: 07/29/17 11:23 Dose: 1 ea Morphine Sulfate (Morphine) 2 mg IVP Q15M PRN PRN Reason: Pain, moderate (4-7) Ondansetron HCl (Zofran Inj) 4 mg IVP Q6H PRN PRN Reason: Nausea/Vomiting Last Admin: 07/20/17 10:50 Dose: 4 mg Rifaximin (Xifaxan) 550 mg PO BID [facility] PRN Reason: Protocol Last Admin: 07/29/17 20:29 Dose: Not Given Spironolactone (Aldactone) 25 mg PO BID [facility] Last Admin: 07/23/17 10:51 Dose: 25 mg Thiamine HCl (Vitamin B1 Inj) 100 mg IM BID [facility] Last Admin: 07/29/17 20:29 Dose: Not Given - Labs Labs: 07/29/17 18:05 07/29/17 18:05 PT 19.6 Seconds (9.9-11.8) H 07/29/17 18:05 INR 1.81 (0.93-1.08) H 07/29/17 18:05 APTT 32.1 Seconds (23.7-30.8) H 07/29/17 18:05
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
[2017-07-30] MEDS: Pantoprazole 40mg/100ml IVPB 40 MG/100 ML BAG IVPB SCH ×5 (00:33→21:27)
[2017-07-30 01:20] LABS: HEMATOCRIT 25.3 % (42.0-52.0); MEAN CELL VOLUME 86.1 fl (80.0-105.0); MEAN CORPUSCULAR HEMOGLOBIN 29.3 pg (25.0-35.0); MEAN PLATELET VOLUME 9.7 fl (7.0-11.0); WHITE BLOOD COUNT 9.8 10^3/ul (4.5-11.0)
--- NOTE | 2017-07-30 02:41 | PN ---
DATE: SUBJECTIVE: This patient was seen and evaluated earlier. I was present at the time just after the rapid response event. This is a 56-year-old patient with metastatic pancreatic cancer admitted with sepsis, possible cholangitis, underwent ERCP yesterday. He was found to have blocked metal stent due to tumor growth in the proximal end. The patient did have some debris inside the stent, which was cleared. The patient also found to have grade 2 esophageal varices and gastric varices. Today, the patient was found to have an abdominal distention and had episodes of vomiting, coffee ground and bilious material. The patient had an NG placed and quickly, rapid response was called. The patient now at the time of examination appeared more comfortable. Abdomen is slightly less distended. PHYSICAL EXAMINATION: VITAL SIGNS: Temperature 98.4, blood pressure 116/86 and respirations 19. HEENT: Atraumatic. The patient is jaundiced. NECK: Supple. HEART: S1 and S2 heard. LUNGS: Bilateral air entry present. Few rhonchi present, scattered. Basilar air entry slightly reduced. ABDOMEN: Softly distended. Bowel sounds present. EXTREMITIES: No cyanosis. No clubbing. NEUROLOGIC: Alert. Moves all extremities. LABORATORY DATA: The patient's hemoglobin in the morning was 7.6. The patient did receive transfusion and repeat blood count has improved to 9.9, platelets 175, WBC count of 12.1. Total bilirubin has elevated to 6.9, alkaline phosphatase 604. IMPRESSION: This is a 56-year-old patient with dementia secondary to the neurosyphilis. The patient's power of size mixer is state-appointed size mixer with whom I had a detailed discussion yesterday before the endoscopic retrograde cholangiopancreatography. The concern is about doing any invasive procedures more because of this patient's advanced cancer and overall prognosis poor, but the power of size mixer feels that if the survival is going to be even for a short period of time, at that time, he preferred to have the procedure done. The procedure was uneventful. The proximal end of bile duct stent was closed, occluded, from which significant amount of debris were removed. At that time, the plan was to continue to followup the liver function tests, which were showing still upper trend. There are only 2 options left, whether we can ask for interventional radiologist through the PTC and stent placement antegradely or opt to choose hospice ,palliative care option. The other complicating issue in this patient is the patient did have drop in blood count. He did have Grade 2 esophageal varices, but the patient does have femoral vein thrombosis deep venous thrombosis. The patient has been on Lovenox, which has been discontinued now because of the possible of bleeding. The patient; however, has deep venous thrombosis without anticoagulation there is definitely a clear risk of the patient having pulmonary embolism. We willcontinue to closely followup his care and suggest further management based on the clinical course. Overall prognosis very poor for the patient. Recommend palliative care . Harjeet uGerrero MD MTDD
[2017-07-30] MEDS: SODIUM CHLORIDE 0.9% IVPB SCH ×2 (06:07→18:10)
[2017-07-30] MEDS: PHENYTOIN IVPB SCH ×2 (06:07→18:10)
[2017-07-30] MEDS: Insulin Reg-LOW-Coverage SC SCH ×3 (08:02→16:33)
--- NOTE | 2017-07-30 08:27 | RAD ---
HISTORY: Vomiting COMPARISON: 07/23/2017. FINDINGS: The nasogastric tube terminates in the stomach. LUNGS: The lungs are clear. PLEURA: No significant pleural effusion identified, no pneumothorax apparent. CARDIOVASCULAR: Normal. OSSEOUS STRUCTURES: No significant abnormalities. VISUALIZED UPPER ABDOMEN: Normal. OTHER FINDINGS: None. IMPRESSION: No acute findings.
--- NOTE | 2017-07-30 08:34 | RAD ---
HISTORY: intractable vomiting COMPARISON: No prior. FINDINGS: Biliary stent is identified in the right upper quadrant. BOWEL: There are gas filled normal caliber small bowel loops. No evidence of bowel dilatation. BONES: Normal. OTHER FINDINGS: None. IMPRESSION: Nonobstructive bowel-gas pattern.
[2017-07-30 09:26] LABS: BASO # 0.02 K/mm3 (0.0-2.0); BASO % 0.2 % (0.0-3.0); EOS # 0.1 (0.0-0.7); EOS % 0.8 % (1.5-5.0); GRAN # 8.93 (1.4-6.5); GRAN % 87.7 % (50.0-68.0); HEMATOCRIT 30.5 % (42.0-52.0); LYMPH # 0.3 (1.2-3.4); LYMPH % 2.7 % (22.0-35.0); MEAN CELL VOLUME 87.9 fl (80.0-105.0); MEAN CORPUSCULAR HEMOGLOBIN 29.7 pg (25.0-35.0); MEAN CORPUSCULAR HGB CONC 33.8 g/dl (31.0-37.0); MEAN PLATELET VOLUME 9.9 fl (7.0-11.0); MONO # 0.9 (0.1-0.6); MONO % 8.6 % (1.0-6.0); PLATELET COUNT 155 10^3/uL (120.0-450.0); RED CELL DISTRIBUTION WIDTH 21.3 % (11.5-14.5); WHITE BLOOD COUNT 10.2 10^3/ul (4.5-11.0)
[2017-07-30 09:35] LABS: BLOOD UREA NITROGEN 3 mg/dL (7-21); CALCIUM 7.5 mg/dL (8.4-10.5); CARBON DIOXIDE 25 mmol/L (21-33); CHLORIDE 103 mmol/L (98-107); GFR AFRICAN-AMERICAN > 60; GLUCOSE,RANDOM 94 mg/dL (70-110); MAGNESIUM 1.9 mg/dL (1.7-2.2); PHOSPHOROUS 2.4 mg/dL (2.5-4.5); POTASSIUM 3.2 mmol/L (3.6-5.0); SODIUM 137 mmol/L (132-148)
[2017-07-30 09:58] LABS: ANISOCYTOSIS SLIGHT; EOSINOPHIL 3 % (0.0-3.0); NEUTROPHIL 87 % (50.0-70.0); PLATELET ESTIMATE NORMAL (NORMAL)
[2017-07-30] MEDS: Lidocaine 5% Patch TD SCH (09:58)
[2017-07-30] MEDS: cefTRIAXone 1 gm 1 GM/100 ML BAG IVPB SCH (09:58)
[2017-07-30] MEDS: Thiamine 100 mg/ml Inj IM SCH ×2 (09:58→17:40)
[2017-07-30] MEDS: Collagenase 250 Units/gm Ointment(30 gm) TOP SCH (09:59)
[2017-07-30] MEDS ORDERED: Potassium Chloride 20 mEq ER Tab PO SCH (10:00)
--- NOTE | 2017-07-30 13:47 | PN ---
DATE: 07/30/2017 SUBJECTIVE: The patient is in bed, in no acute distress. PHYSICAL EXAMINATION: VITAL SIGNS: Temperature is 98, blood pressure is 100/60, respiratory rate of 20. HEENT: Unremarkable. NECK: Supple. LUNGS: Decreased breath sounds. HEART: Normal S1 and S2. ABDOMEN: Soft. LABORATORY DATA: Examination reveals the white count of 10, hemoglobin of 10, platelets of 155. Chemistries reveals the BUN of 3, creatinine of 0.3 Urinalysis is noted. ASSESSMENT AND PLAN: He is a 56-year-old male seen earlier today in 372, bed 1 with systemic inflammatory response syndrome. The patient with new deep vein thrombosis, diagnosed on 07/23/2017. The patient with a pancreatic cancer with liver metastasis, status post endoscopic retrograde cholangiopancreatography and tumor growth around the metal stent. The patient with hypertension, diabetes, dementia, neurosyphilis, history of seizures, asthma and schizophrenia. Currently off of antibiotics. The patient had a chest x-ray done yesterday. Lungs are clear. Dr. Ybarra consultation is reviewed regarding coffee-ground bilious emesis. No surgical intervention is planned. White count appears to be normal and the patient's temperature is normal. Dr. Guerrero's note is reviewed. Overall prognosis is quite poor for this patient. Should consider palliative care. The patient currently now on ceftriaxone started by GI empirically for GI bleed. Overall prognosis is poor. Mir Blanco MD
--- NOTE | 2017-07-30 14:31 | PN ---
LOCATION: Room #372, bed #1. REASON FOR CONSULTATION: Followup cardiac evaluation, rule out cardiac arrhythmia, pancreatic carcinoma with metastasis and ascites. SUBJECTIVE: The patient lying flat in bed without chest pain, shortness of breath, palpitation. Yesterday, the patient had emesis, black discoloration mixed with yellowish coloration material. The patient has NG tube in. The patient lying flat in bed without any cardiac symptoms. PHYSICAL EXAMINATION: VITAL SIGNS: Blood pressure 98/63, respiration 20, pulse is 78 and temperature 98.7. HEENT: Head is normocephalic. Eyes, pupils normal. Conjunctivae slightly pale. NECK: JVP low. Carotid equal. Thorax, AP diameter normal. LUNGS: Clear. CARDIOVASCULAR: S1 and S2. ABDOMEN: Protuberant with ascites. EXTREMITIES: No clubbing. No cyanosis. LABORATORY DATA: WBC 10.2, hemoglobin 10.3 and platelet 155. Sodium 137, potassium 3.2, BUN 3, creatinine 0.3, calcium 7.5, phosphorus 2.4 and magnesium 1.9. DIAGNOSES: Pancreatic carcinoma with metastasis, ascites, status post large-volume paracentesis. Yesterday, episode of coffee ground material vomiting. No cardiac arrhythmia noted. Hypokalemia. PLAN: The patient already has been ordered IV potassium boluses by Dr. Garces, warehouse associate. The patient is getting spironolactone 25 b.i.d., Dilantin 150 IV b.i.d. The patient is also on octreotide drip 1250 mcg IV drip running at 25 mcg/hour, Protonix 40 mg IV daily, Rocephin 1 g IV daily. Repeat SMA-7 and CBC in the morning. We will follow with you. Jayme Park MD
--- NOTE | 2017-07-30 18:45 | CP.PCM.PN ---
Subjective - Date & Time of Evaluation Date of Evaluation: 07/29/17 Time of Evaluation: 16:00 - Subjective Subjective: Denies pain. Would like NG tube removed. Rapid response called earlier due to dramatic vomiting. Improved once NG tube placed ROS: unable to fully assess. Patient oriented to person and place only Objective - Vital Signs/Intake and Output Vital Signs (last 24 hours): Temp Pulse Resp BP Pulse Ox 98.7 F 73 20 98/63 L 95 07/30/17 08:09 07/30/17 14:00 07/30/17 08:09 07/30/17 08:09 07/30/17 08:09 Intake and Output: 07/30/17 07/30/17 06:59 18:59 Intake Total 325 52.5 Output Total 425 300 Balance -100 -247.5 - Medications Medications: Current Medications Collagenase (Santyl) 1 gm TOP DAILY [facility] Last Admin: 07/30/17 09:59 Dose: 1 applic Phenytoin 150 mg/ Sodium (Chloride) 53 mls @ 104 mls/hr IVPB 0600,1800 [facility] Last Admin: 07/30/17 18:10 Dose: 104 mls/hr Pantoprazole Sodium (Protonix 40mg Ivpb) 40 mg in 100 mls @ 20 mls/hr IVPB .Q5H [facility] Last Admin: 07/30/17 14:57 Dose: 20 mls/hr Octreotide Acetate 1,250 mcg/ (Sodium Chloride) 252.5 mls @ 5.05 mls/hr IV .Q24H [facility]; 25 MCG/HR PRN Reason: Protocol Last Admin: 07/30/17 17:44 Dose: 25 mcg/hr, 5.05 mls/hr Ceftriaxone Sodium (Rocephin 1 Gram Ivpb) 1 gm in 100 mls @ 100 mls/hr IVPB DAILY [facility] PRN Reason: Protocol Last Admin: 07/30/17 09:58 Dose: 100 mls/hr Potassium Chloride (Potassium Chloride 10 Meq/100 Ml) 10 meq in 100 mls @ 100 mls/hr IVPB Q2H [facility] Stop: 07/30/17 19:14 Last Admin: 07/30/17 17:39 Dose: 100 mls/hr Insulin Human Regular (Humulin R Low) 0 units SC ACHS [facility] PRN Reason: Protocol Last Admin: 07/30/17 16:33 Dose: Not Given Lactulose (Enulose) 20 gm PO BID [facility] Last Admin: 07/29/17 22:15 Dose: Not Given Lidocaine (Lidoderm) 1 ea TD DAILY [facility] Last Admin: 07/30/17 09:58 Dose: 1 ea Morphine Sulfate (Morphine) 2 mg IVP Q15M PRN PRN Reason: Pain, moderate (4-7) Ondansetron HCl (Zofran Inj) 4 mg IVP Q6H PRN PRN Reason: Nausea/Vomiting Last Admin: 07/29/17 21:15 Dose: 4 mg Rifaximin (Xifaxan) 550 mg PO BID [facility] PRN Reason: Protocol Last Admin: 07/29/17 20:29 Dose: Not Given Spironolactone (Aldactone) 25 mg PO BID [facility] Last Admin: 07/23/17 10:51 Dose: 25 mg Thiamine HCl (Vitamin B1 Inj) 100 mg IM BID [facility] Last Admin: 07/30/17 17:40 Dose: 100 mg - Labs Labs: 07/30/17 09:16 07/30/17 09:16 PT 19.6 Seconds (9.9-11.8) H 07/29/17 18:05 INR 1.81 (0.93-1.08) H 07/29/17 18:05 APTT 32.1 Seconds (23.7-30.8) H 07/29/17 18:05 - Constitutional Appears: Non-toxic - Respiratory Exam Respiratory Exam: Clear to Ausculation Bilateral, NORMAL BREATHING PATTERN - Cardiovascular Exam Cardiovascular Exam: REGULAR RHYTHM, +S1, +S2. absent: Murmur - GI/Abdominal Exam GI & Abdominal Exam: Distended, Soft, Hypoactive Bowel Sounds. absent: Tenderness - Extremities Exam Extremities Exam: Calf Tenderness Assessment and Plan - Assessment and Plan (Free Text) Plan: Mr. Saha is a 56 y/o man with pmhx significant for dementia, schizophrenia, siezure d/o, hx of neurosphilism and stage IV pancreatic cancer s/p progression with carbo/gemzar admitted with sepsis features and abdominal distention. At present patient has a poor performance status that is prohitibive for any additional chemotherapy. Would recommend palliative measures w/o chemotherapy and strongly advocate for hospice. Recommend getting in touch with patient's state appointed guardian. Tip Mccauley MD Oncology/HEmatology
--- NOTE | 2017-07-30 18:47 | CP.PCM.PN ---
Subjective - Date & Time of Evaluation Date of Evaluation: 07/30/17 Time of Evaluation: 17:00 - Subjective Subjective: No acute events over night. Patient watching TV comfortably with NG tube still in place Not engaging with questions today ROS: unable to assess Objective - Vital Signs/Intake and Output Vital Signs (last 24 hours): Temp Pulse Resp BP Pulse Ox 98.7 F 73 20 98/63 L 95 07/30/17 08:09 07/30/17 14:00 07/30/17 08:09 07/30/17 08:09 07/30/17 08:09 Intake and Output: 07/30/17 07/30/17 06:59 18:59 Intake Total 325 52.5 Output Total 425 300 Balance -100 -247.5 - Medications Medications: Current Medications Collagenase (Santyl) 1 gm TOP DAILY [facility] Last Admin: 07/30/17 09:59 Dose: 1 applic Enoxaparin Sodium (Lovenox) 30 mg SC DAILY [facility] PRN Reason: Protocol Phenytoin 150 mg/ Sodium (Chloride) 53 mls @ 104 mls/hr IVPB 0600,1800 [facility] Last Admin: 07/30/17 18:10 Dose: 104 mls/hr Pantoprazole Sodium (Protonix 40mg Ivpb) 40 mg in 100 mls @ 20 mls/hr IVPB .Q5H [facility] Last Admin: 07/30/17 14:57 Dose: 20 mls/hr Octreotide Acetate 1,250 mcg/ (Sodium Chloride) 252.5 mls @ 5.05 mls/hr IV .Q24H [facility]; 25 MCG/HR PRN Reason: Protocol Last Admin: 07/30/17 17:44 Dose: 25 mcg/hr, 5.05 mls/hr Ceftriaxone Sodium (Rocephin 1 Gram Ivpb) 1 gm in 100 mls @ 100 mls/hr IVPB DAILY [facility] PRN Reason: Protocol Last Admin: 07/30/17 09:58 Dose: 100 mls/hr Potassium Chloride (Potassium Chloride 10 Meq/100 Ml) 10 meq in 100 mls @ 100 mls/hr IVPB Q2H [facility] Stop: 07/30/17 19:14 Last Admin: 07/30/17 17:39 Dose: 100 mls/hr Insulin Human Regular (Humulin R Low) 0 units SC ACHS [facility] PRN Reason: Protocol Last Admin: 07/30/17 16:33 Dose: Not Given Lactulose (Enulose) 20 gm PO BID [facility] Last Admin: 07/29/17 22:15 Dose: Not Given Lidocaine (Lidoderm) 1 ea TD DAILY [facility] Last Admin: 07/30/17 09:58 Dose: 1 ea Morphine Sulfate (Morphine) 2 mg IVP Q15M PRN PRN Reason: Pain, moderate (4-7) Ondansetron HCl (Zofran Inj) 4 mg IVP Q6H PRN PRN Reason: Nausea/Vomiting Last Admin: 07/29/17 21:15 Dose: 4 mg Rifaximin (Xifaxan) 550 mg PO BID [facility] PRN Reason: Protocol Last Admin: 07/29/17 20:29 Dose: Not Given Spironolactone (Aldactone) 25 mg PO BID [facility] Last Admin: 07/23/17 10:51 Dose: 25 mg Thiamine HCl (Vitamin B1 Inj) 100 mg IM BID [facility] Last Admin: 07/30/17 17:40 Dose: 100 mg - Labs Labs: 07/30/17 09:16 07/30/17 09:16 PT 19.6 Seconds (9.9-11.8) H 07/29/17 18:05 INR 1.81 (0.93-1.08) H 07/29/17 18:05 APTT 32.1 Seconds (23.7-30.8) H 07/29/17 18:05 - Constitutional Appears: Non-toxic - Respiratory Exam Respiratory Exam: Clear to Ausculation Bilateral, NORMAL BREATHING PATTERN - Cardiovascular Exam Cardiovascular Exam: REGULAR RHYTHM, +S1, +S2. absent: Murmur - GI/Abdominal Exam GI & Abdominal Exam: Distended, Hypoactive Bowel Sounds. absent: Firm, Guarding , Rigid, Tenderness, Rebound - Extremities Exam Extremities Exam: Full ROM, Normal Capillary Refill, Normal Inspection. absent : Joint Swelling, Pedal Edema Assessment and Plan - Assessment and Plan (Free Text) Assessment: Mr. Saha is a 56 y/o man with pmhx significant for dementia, schizophrenia, siezure d/o, hx of neurosphilism and stage IV pancreatic cancer s/p progression with carbo/gemzar admitted with sepsis features and abdominal distention. At present patient has a poor performance status that is prohitibive for any additional chemotherapy. Would recommend palliative measures w/o chemotherapy and strongly advocate for hospice. Recommend getting in touch with patient's state appointed guardian.
--- NOTE | 2017-07-30 21:50 | CP.PCM.PN ---
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 for bilious/coffee ground vomiting; subsequently NPO; frequent BM have decreased per nursing staff; Objective - Vital Signs/Intake and Output Vital Signs (last 24 hours): Temp Pulse Resp BP Pulse Ox 98.9 F 83 19 89/51 L 94 L 07/30/17 18:52 07/30/17 18:52 07/30/17 18:52 07/30/17 18:52 07/30/17 18:52 Intake and Output: 07/30/17 07/31/17 18:59 06:59 Intake Total 52.5 Output Total 300 Balance -247.5 - Medications Medications: Current Medications Collagenase (Santyl) 1 gm TOP DAILY [facility] Last Admin: 07/30/17 09:59 Dose: 1 applic Enoxaparin Sodium (Lovenox) 30 mg SC DAILY [facility] PRN Reason: Protocol Phenytoin 150 mg/ Sodium (Chloride) 53 mls @ 104 mls/hr IVPB 0600,1800 [facility] Last Admin: 07/30/17 18:10 Dose: 104 mls/hr Pantoprazole Sodium (Protonix 40mg Ivpb) 40 mg in 100 mls @ 20 mls/hr IVPB .Q5H [facility] Last Admin: 07/30/17 21:27 Dose: 20 mls/hr Octreotide Acetate 1,250 mcg/ (Sodium Chloride) 252.5 mls @ 5.05 mls/hr IV .Q24H [facility]; 25 MCG/HR PRN Reason: Protocol Last Admin: 07/30/17 17:44 Dose: 25 mcg/hr, 5.05 mls/hr Ceftriaxone Sodium (Rocephin 1 Gram Ivpb) 1 gm in 100 mls @ 100 mls/hr IVPB DAILY [facility] PRN Reason: Protocol Last Admin: 07/30/17 09:58 Dose: 100 mls/hr Potassium Chloride 20 meq/ (Sodium Chloride) 1,010 mls @ 60 mls/hr IV .[id number] [facility] Insulin Human Regular (Humulin R Low) 0 units SC ACHS [facility] PRN Reason: Protocol Last Admin: 07/30/17 16:33 Dose: Not Given Lactulose (Enulose) 20 gm PO BID [facility] Last Admin: 07/29/17 22:15 Dose: Not Given Lidocaine (Lidoderm) 1 ea TD DAILY [facility] Last Admin: 07/30/17 09:58 Dose: 1 ea Morphine Sulfate (Morphine) 2 mg IVP Q15M PRN PRN Reason: Pain, moderate (4-7) Ondansetron HCl (Zofran Inj) 4 mg IVP Q6H PRN PRN Reason: Nausea/Vomiting Last Admin: 07/29/17 21:15 Dose: 4 mg Rifaximin (Xifaxan) 550 mg PO BID [facility] PRN Reason: Protocol Last Admin: 07/29/17 20:29 Dose: Not Given Spironolactone (Aldactone) 25 mg PO BID [facility] Last Admin: 07/23/17 10:51 Dose: 25 mg Thiamine HCl (Vitamin B1 Inj) 100 mg IM BID [facility] Last Admin: 07/30/17 17:40 Dose: 100 mg - Labs Labs: 07/30/17 09:16 07/30/17 09:16 PT 19.6 Seconds (9.9-11.8) H 07/29/17 18:05 INR 1.81 (0.93-1.08) H 07/29/17 18:05 APTT 32.1 Seconds (23.7-30.8) H 07/29/17 18:05 - Constitutional Appears: Non-toxic, No Acute Distress - Head Exam Head Exam: NORMAL INSPECTION - Eye Exam Eye Exam: Scleral icterus - ENT Exam ENT Exam: Mucous Membranes Moist - Respiratory Exam Respiratory Exam: absent: Respiratory Distress Additional comments: R sided rales; - Cardiovascular Exam Cardiovascular Exam: REGULAR RHYTHM, +S1, +S2 - GI/Abdominal Exam GI & Abdominal Exam: Distended, Soft - Exam Additional comments: niño in place; - Extremities Exam Additional comments: moderately edematous legs; - Neurological Exam Neurological Exam: Alert, Awake - Psychiatric Exam Psychiatric exam: absent: Agitated - Skin Skin Exam: Normal Color, Warm. absent: Cyanosis Assessment and Plan (1) ANA MARIA (acute kidney injury) Status: Resolved (2) Hypernatremia Status: Resolved (3) Hypokalemia Assessment & Plan: Recurrent but no longer having as much stool losses; no ileus on abd xray; will continue to replenish prn (now with IV only); Status: Acute (4) Hypotension Assessment & Plan: Fluctuating BP; doesn't appear symptomatic; will place on gentle IVF with NS at 60 cc/hr (w/ 20 meq/L of KCl); Status: Acute (5) SIRS (systemic inflammatory response syndrome) Status: Acute (6) Hypophosphatemia Status: Acute
--- NOTE | 2017-07-31 00:17 | PN ---
DATE: 07/30/2017 SUBJECTIVE: This patient was seen and evaluated earlier. The patient appears more comfortable today. Jaundiced. Has NG tube in place. PHYSICAL EXAMINATION VITAL SIGNS: Temperature is afebrile, 98.9, blood pressure 89/51, pulse 83, respirations 19 and O2 saturation 98. HEENT: Atraumatic. Jaundiced. NECK: Supple. HEART: S1 and S2 heard. LUNGS: Bilateral air entry present, slightly reduced in the base. ABDOMEN: Softly distended. NG tube in place. EXTREMITIES: No cyanosis, no clubbing. LABORATORY DATA: Hemoglobin 10.2, hematocrit 30.5, WBC 10.2 and platelets 155. Potassium 3.2 and phosphorus 2.4. IMPRESSION: 1. This 56-year-old patient with advanced pancreatic cancer had a endoscopic retrograde cholangiopancreatography done recently and found to have proximal end of the stump, the stent was blocked with tumor, progressive disease. 2. The patient also has esophageal and gastric varices. The patient did have coffee ground vomitus status post transfusion. Hemoglobin is stable. 3. Ascites and other comorbidities include hypertension, acute kidney injury improved, sepsis and hypokalemia has been supplemented. RECOMMENDATION: The patient has poor prognosis because of progressively advanced disease, blocked stent, and would strongly advocate for palliative hospice care. Thank you very much for allowing me to participate in the care of this patient. Harjeet Guerrero MD
[2017-07-31] MEDS: Pantoprazole 40mg/100ml IVPB 40 MG/100 ML BAG IVPB SCH ×5 (02:13→21:01)
[2017-07-31] MEDS: PHENYTOIN IVPB SCH ×2 (05:24→17:58)
[2017-07-31] MEDS: SODIUM CHLORIDE 0.9% IVPB SCH ×2 (05:24→17:58)
[2017-07-31 06:12] LABS: BASO # 0.02 K/mm3 (0.0-2.0); BASO % 0.2 % (0.0-3.0); EOS # 0.1 (0.0-0.7); EOS % 0.7 % (1.5-5.0); GRAN # 11.01 (1.4-6.5); GRAN % 89.8 % (50.0-68.0); LYMPH # 0.3 (1.2-3.4); LYMPH % 2.1 % (22.0-35.0); MEAN CELL VOLUME 88.1 fl (80.0-105.0); MEAN CORPUSCULAR HGB CONC 32.9 g/dl (31.0-37.0); MEAN PLATELET VOLUME 9.7 fl (7.0-11.0); MONO # 0.9 (0.1-0.6); MONO % 7.2 % (1.0-6.0); RED CELL DISTRIBUTION WIDTH 21.8 % (11.5-14.5); WHITE BLOOD COUNT 12.3 10^3/ul (4.5-11.0)
[2017-07-31 06:46] LABS: BLOOD UREA NITROGEN 4 mg/dL (7-21); CALCIUM 7.6 mg/dL (8.4-10.5); CARBON DIOXIDE 24 mmol/L (21-33); CHLORIDE 104 mmol/L (98-107); GFR AFRICAN-AMERICAN > 60; GLUCOSE,RANDOM 95 mg/dL (70-110); MAGNESIUM 1.9 mg/dL (1.7-2.2); PHOSPHOROUS 2.6 mg/dL (2.5-4.5); POTASSIUM 3.6 mmol/L (3.6-5.0); SODIUM 138 mmol/L (132-148)
[2017-07-31] MEDS: Insulin Reg-LOW-Coverage SC SCH ×4 (08:38→22:49)
[2017-07-31] MEDS: cefTRIAXone 1 gm 1 GM/100 ML BAG IVPB SCH (09:12)
[2017-07-31] MEDS: Lidocaine 5% Patch TD SCH (09:13)
[2017-07-31] MEDS: Thiamine 100 mg/ml Inj IM SCH ×2 (09:13→17:57)
[2017-07-31] MEDS: Collagenase 250 Units/gm Ointment(30 gm) TOP SCH (09:14)
[2017-07-31] MEDS: Enoxaparin 30 mg Syringe SC SCH (09:14)
[2017-07-31 09:24] LABS: ALB/GLOB RATIO 0.9 (1.1-1.8); BILIRUBIN,TOTAL 8.1 mg/dL (0.2-1.3); TOTAL PROTEIN 5.4 g/dL (5.8-8.3)
--- NOTE | 2017-07-31 09:48 | PN ---
DATE: 07/30/2017 SUBJECTIVE: The patient is 56 years old male. The patient is seen and examined on the bedside, looking comfortable. No nausea, vomiting, or diarrhea. No hematuria or hematochezia. No swelling of the leg. No chest pain. No palpitations. No headache. No dizziness. Having NG tube. Abdomen is distended. PHYSICAL EXAMINATION: VITAL SIGNS: Temperature 98.7, pulse 76, blood pressure 98/63, and respiratory rate is 20. HEENT: Head is normocephalic and atraumatic. Eyes: PERRLA. Extraocular muscles intact. Conjunctivae clear. Nose patent. NECK: Supple. No carotid bruits, JVD, or thyromegaly. CHEST: Bilateral symmetrical. HEART: S1 and S2 positive. LUNGS: Clear to auscultation. ABDOMEN: Soft. Distended. Bowel sounds are positive. EXTREMITIES: No edema. No cyanosis. NEUROLOGIC: The patient is awake and alert. Moving all four extremities. No focal deficits. MEDICATIONS: Aldactone, lactulose, Insulin, Lidoderm, morphine, octreotide acetate, potassium, Rocephin, Santyl, thiamine, Xifaxan, and Zofran. LABORATORY DATA: White blood cell 7.2, hemoglobin 10.3, hematocrit 30.5, and platelets 155. Sodium 137; potassium 3.2. BUN 3, creatinine 0.2, glucose 126. ASSESSMENT AND PLAN: Mr. John Saha is a 56 years old male with hypokalemia, hyperglycemia, hypocalcemia, hypophosphatemia, anemia, has rapid response yesterday. The patient is Full Code. Pancreatic carcinoma with metastasis; ascites, status post large volume paracentesis, episode of coffee ground material vomiting, hypokalemia, potassium replaced. Dr. Garces, Systems Developer, fixed the electrolytes. The patient has a history of dementia, neurosyphilis, seizure disorder, deep venous thrombosis. Continue present treatment. Repeat labs. We will follow up. Michelle Castillo MD 07/30/2017 [place]
--- NOTE | 2017-07-31 11:40 | CP.PCM.PN ---
<Tate Quiles - Last Filed: 07/31/17 11:36> Subjective - Date & Time of Evaluation Date of Evaluation: 07/31/17 Time of Evaluation: 11:36 - Subjective Subjective: GI: Dr. Guerrero Pt seen and examined. Resting comfortably in bed. Per nursing no acute events overnight. Objective - Vital Signs/Intake and Output Vital Signs (last 24 hours): Temp Pulse Resp BP Pulse Ox 99.4 F 87 20 105/68 98 07/31/17 08:19 07/31/17 10:00 07/31/17 08:19 07/31/17 08:19 07/31/17 08:19 Intake and Output: 07/31/17 07/31/17 06:59 18:59 Intake Total 0 Output Total 400 Balance -400 - Medications Medications: Current Medications Collagenase (Santyl) 1 gm TOP DAILY [facility] Last Admin: 07/31/17 09:14 Dose: 1 applic Enoxaparin Sodium (Lovenox) 30 mg SC DAILY [facility] PRN Reason: Protocol Last Admin: 07/31/17 09:14 Dose: 30 mg Phenytoin 150 mg/ Sodium (Chloride) 53 mls @ 104 mls/hr IVPB 0600,1800 [facility] Last Admin: 07/31/17 05:24 Dose: 104 mls/hr Pantoprazole Sodium (Protonix 40mg Ivpb) 40 mg in 100 mls @ 20 mls/hr IVPB .Q5H [facility] Last Admin: 07/31/17 09:05 Dose: 20 mls/hr Octreotide Acetate 1,250 mcg/ (Sodium Chloride) 252.5 mls @ 5.05 mls/hr IV .Q24H [facility]; 25 MCG/HR PRN Reason: Protocol Last Admin: 07/30/17 17:44 Dose: 25 mcg/hr, 5.05 mls/hr Ceftriaxone Sodium (Rocephin 1 Gram Ivpb) 1 gm in 100 mls @ 100 mls/hr IVPB DAILY [facility] PRN Reason: Protocol Last Admin: 07/31/17 09:12 Dose: 100 mls/hr Potassium Chloride 20 meq/ (Sodium Chloride) 1,010 mls @ 60 mls/hr IV .[id number] [facility] Last Admin: 07/31/17 01:09 Dose: 60 mls/hr Insulin Human Regular (Humulin R Low) 0 units SC ACHS [facility] PRN Reason: Protocol Last Admin: 07/31/17 08:38 Dose: Not Given Lactulose (Enulose) 20 gm PO BID [facility] Last Admin: 07/29/17 22:15 Dose: Not Given Lidocaine (Lidoderm) 1 ea TD DAILY [facility] Last Admin: 07/31/17 09:13 Dose: 1 ea Morphine Sulfate (Morphine) 2 mg IVP Q15M PRN PRN Reason: Pain, moderate (4-7) Ondansetron HCl (Zofran Inj) 4 mg IVP Q6H PRN PRN Reason: Nausea/Vomiting Last Admin: 07/29/17 21:15 Dose: 4 mg Rifaximin (Xifaxan) 550 mg PO BID [facility] PRN Reason: Protocol Last Admin: 07/29/17 20:29 Dose: Not Given Spironolactone (Aldactone) 25 mg PO BID [facility] Last Admin: 07/23/17 10:51 Dose: 25 mg Thiamine HCl (Vitamin B1 Inj) 100 mg IM BID [facility] Last Admin: 07/31/17 09:13 Dose: 100 mg - Labs Labs: 07/31/17 05:40 07/31/17 05:40 PT 19.6 Seconds (9.9-11.8) H 07/29/17 18:05 INR 1.81 (0.93-1.08) H 07/29/17 18:05 APTT 32.1 Seconds (23.7-30.8) H 07/29/17 18:05 - Constitutional Appears: No Acute Distress, Chronically Ill - Head Exam Head Exam: ATRAUMATIC, NORMOCEPHALIC - Eye Exam Eye Exam: EOMI, Scleral icterus - ENT Exam ENT Exam: Mucous Membranes Moist Additional comments: NGT in place - Neck Exam Neck Exam: Full ROM - Respiratory Exam Respiratory Exam: NORMAL BREATHING PATTERN. absent: Accessory Muscle Use, Respiratory Distress - GI/Abdominal Exam GI & Abdominal Exam: Distended, Soft. absent: Firm, Guarding, Rigid, Tenderness , Rebound - Extremities Exam Extremities Exam: absent: Calf Tenderness, Pedal Edema - Neurological Exam Neurological Exam: Alert, Awake. absent: Oriented x3 - Skin Skin Exam: Dry, Warm. absent: Normal Color (jaundice) Assessment and Plan - Assessment and Plan (Free Text) Assessment: Assessment: 1. 56M w. advanced pancreatic CA, s/p ERCP which biliary stent being obstructed from tumor 2. Esophageal/gastric varices. Pt had coffee ground emesis, NGT in place 200cc/ 12hr dark bilious. Plan: Pt has poor prognosis given advanced disease, recommend palliative care. In meantime Keep NGT to low intermittent suction. c/w octreotide and PPIs. <Yolanda,Kovil V - Last Filed: 07/31/17 23:14> Objective - Vital Signs/Intake and Output Vital Signs (last 24 hours): Temp Pulse Resp BP Pulse Ox 99.0 F 78 19 112/70 94 L 07/31/17 16:00 07/31/17 18:00 07/31/17 16:00 07/31/17 16:00 07/31/17 16:00 - Medications Medications: Current Medications Collagenase (Santyl) 1 gm TOP DAILY [facility] Last Admin: 07/31/17 09:14 Dose: 1 applic Enoxaparin Sodium (Lovenox) 30 mg SC DAILY [facility] PRN Reason: Protocol Last Admin: 07/31/17 09:14 Dose: 30 mg Phenytoin 150 mg/ Sodium (Chloride) 53 mls @ 104 mls/hr IVPB 0600,1800 [facility] Last Admin: 07/31/17 17:58 Dose: 104 mls/hr Pantoprazole Sodium (Protonix 40mg Ivpb) 40 mg in 100 mls @ 20 mls/hr IVPB .Q5H [facility] Last Admin: 07/31/17 21:01 Dose: 20 mls/hr Octreotide Acetate 1,250 mcg/ (Sodium Chloride) 252.5 mls @ 5.05 mls/hr IV .Q24H [facility]; 25 MCG/HR PRN Reason: Protocol Last Admin: 07/31/17 21:07 Dose: 25 mcg/hr, 5.05 mls/hr Ceftriaxone Sodium (Rocephin 1 Gram Ivpb) 1 gm in 100 mls @ 100 mls/hr IVPB DAILY [facility] PRN Reason: Protocol Last Admin: 07/31/17 09:12 Dose: 100 mls/hr Potassium Chloride 20 meq/ (Sodium Chloride) 1,010 mls @ 60 mls/hr IV .[id number] [facility] Last Admin: 07/31/17 16:24 Dose: 60 mls/hr Insulin Human Regular (Humulin R Low) 0 units SC ACHS [facility] PRN Reason: Protocol Last Admin: 07/31/17 22:49 Dose: Not Given Lactulose (Enulose) 20 gm PO BID [facility] Last Admin: 07/29/17 22:15 Dose: Not Given Lidocaine (Lidoderm) 1 ea TD DAILY [facility] Last Admin: 07/31/17 09:13 Dose: 1 ea Morphine Sulfate (Morphine) 2 mg IVP Q15M PRN PRN Reason: Pain, moderate (4-7) Ondansetron HCl (Zofran Inj) 4 mg IVP Q6H PRN PRN Reason: Nausea/Vomiting Last Admin: 07/29/17 21:15 Dose: 4 mg Rifaximin (Xifaxan) 550 mg PO BID [facility] PRN Reason: Protocol Last Admin: 07/29/17 20:29 Dose: Not Given Spironolactone (Aldactone) 25 mg PO BID [facility] Last Admin: 07/23/17 10:51 Dose: 25 mg Thiamine HCl (Vitamin B1 Inj) 100 mg IM BID [facility] Last Admin: 07/31/17 17:57 Dose: 100 mg - Labs Labs: 07/31/17 05:40 07/31/17 05:40 PT 19.6 Seconds (9.9-11.8) H 07/29/17 18:05 INR 1.81 (0.93-1.08) H 07/29/17 18:05 APTT 32.1 Seconds (23.7-30.8) H 07/29/17 18:05 Attending/Attestation - Attestation I have personally seen and examined this patient.: Yes I have fully participated in the care of the patient.: Yes I have reviewed all pertinent clinical information, including history, physical exam and plan: Yes Notes (Text): This is an addendum to GI progress report dictated by Resident.The patient was seen and examined earlier. Medical records, lab studies, imagings were reviewed. Last 24 hours events reviewed. 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
--- NOTE | 2017-07-31 13:30 | CP.PCM.PN ---
Subjective - Date & Time of Evaluation Date of Evaluation: 07/31/17 Time of Evaluation: 11:55 - Subjective Subjective: Surgery note for Dr. Lynn 56M seen and examined at bedside. Patient resting comfortably in bed with NGT to suction. States pain is controlled, denies nausea, vomiting. Objective - Vital Signs/Intake and Output Vital Signs (last 24 hours): Temp Pulse Resp BP Pulse Ox 99.4 F 87 20 105/68 98 07/31/17 08:19 07/31/17 10:00 07/31/17 08:19 07/31/17 08:19 07/31/17 08:19 Intake and Output: 07/31/17 07/31/17 06:59 18:59 Intake Total 0 Output Total 400 Balance -400 - Medications Medications: Current Medications Collagenase (Santyl) 1 gm TOP DAILY [facility] Last Admin: 07/31/17 09:14 Dose: 1 applic Enoxaparin Sodium (Lovenox) 30 mg SC DAILY [facility] PRN Reason: Protocol Last Admin: 07/31/17 09:14 Dose: 30 mg Phenytoin 150 mg/ Sodium (Chloride) 53 mls @ 104 mls/hr IVPB 0600,1800 [facility] Last Admin: 07/31/17 05:24 Dose: 104 mls/hr Pantoprazole Sodium (Protonix 40mg Ivpb) 40 mg in 100 mls @ 20 mls/hr IVPB .Q5H [facility] Last Admin: 07/31/17 09:05 Dose: 20 mls/hr Octreotide Acetate 1,250 mcg/ (Sodium Chloride) 252.5 mls @ 5.05 mls/hr IV .Q24H [facility]; 25 MCG/HR PRN Reason: Protocol Last Admin: 07/30/17 17:44 Dose: 25 mcg/hr, 5.05 mls/hr Ceftriaxone Sodium (Rocephin 1 Gram Ivpb) 1 gm in 100 mls @ 100 mls/hr IVPB DAILY [facility] PRN Reason: Protocol Last Admin: 07/31/17 09:12 Dose: 100 mls/hr Potassium Chloride 20 meq/ (Sodium Chloride) 1,010 mls @ 60 mls/hr IV .[id number] [facility] Last Admin: 07/31/17 01:09 Dose: 60 mls/hr Insulin Human Regular (Humulin R Low) 0 units SC ACHS [facility] PRN Reason: Protocol Last Admin: 07/31/17 08:38 Dose: Not Given Lactulose (Enulose) 20 gm PO BID [facility] Last Admin: 07/29/17 22:15 Dose: Not Given Lidocaine (Lidoderm) 1 ea TD DAILY [facility] Last Admin: 07/31/17 09:13 Dose: 1 ea Morphine Sulfate (Morphine) 2 mg IVP Q15M PRN PRN Reason: Pain, moderate (4-7) Ondansetron HCl (Zofran Inj) 4 mg IVP Q6H PRN PRN Reason: Nausea/Vomiting Last Admin: 07/29/17 21:15 Dose: 4 mg Rifaximin (Xifaxan) 550 mg PO BID [facility] PRN Reason: Protocol Last Admin: 07/29/17 20:29 Dose: Not Given Spironolactone (Aldactone) 25 mg PO BID [facility] Last Admin: 07/23/17 10:51 Dose: 25 mg Thiamine HCl (Vitamin B1 Inj) 100 mg IM BID [facility] Last Admin: 07/31/17 09:13 Dose: 100 mg - Labs Labs: 07/31/17 05:40 07/31/17 05:40 PT 19.6 Seconds (9.9-11.8) H 07/29/17 18:05 INR 1.81 (0.93-1.08) H 07/29/17 18:05 APTT 32.1 Seconds (23.7-30.8) H 07/29/17 18:05 - Constitutional Appears: Non-toxic, No Acute Distress - Respiratory Exam Respiratory Exam: Clear to Ausculation Bilateral, NORMAL BREATHING PATTERN - Cardiovascular Exam Cardiovascular Exam: REGULAR RHYTHM, +S1, +S2 - GI/Abdominal Exam GI & Abdominal Exam: Soft. absent: Distended, Firm, Guarding, Rigid, Tenderness , Rebound - Neurological Exam Additional comments: impaired memory/ not oriented 2/2 to disease Assessment and Plan - Assessment and Plan (Free Text) Assessment: 56M w. metastatic pancreatic CA and emesis Plan: -NGT low intermittent suction -f/u labs -no plans for surgical intervention Discussed with Dr. Shane Ricardo, pGY2
--- NOTE | 2017-07-31 13:38 | CP.PCM.PN ---
Subjective - Date & Time of Evaluation Date of Evaluation: 07/31/17 Time of Evaluation: 11:00 - Subjective Subjective: Resting in bed, no acute distress noted. NG to suction, coffee ground drainage Objective - Vital Signs/Intake and Output Vital Signs (last 24 hours): Temp Pulse Resp BP Pulse Ox 99.4 F 87 20 105/68 98 07/31/17 08:19 07/31/17 10:00 07/31/17 08:19 07/31/17 08:19 07/31/17 08:19 Intake and Output: 07/31/17 07/31/17 06:59 18:59 Intake Total 0 Output Total 400 Balance -400 - Medications Medications: Current Medications Collagenase (Santyl) 1 gm TOP DAILY [facility] Last Admin: 07/31/17 09:14 Dose: 1 applic Enoxaparin Sodium (Lovenox) 30 mg SC DAILY [facility] PRN Reason: Protocol Last Admin: 07/31/17 09:14 Dose: 30 mg Phenytoin 150 mg/ Sodium (Chloride) 53 mls @ 104 mls/hr IVPB 0600,1800 [facility] Last Admin: 07/31/17 05:24 Dose: 104 mls/hr Pantoprazole Sodium (Protonix 40mg Ivpb) 40 mg in 100 mls @ 20 mls/hr IVPB .Q5H [facility] Last Admin: 07/31/17 09:05 Dose: 20 mls/hr Octreotide Acetate 1,250 mcg/ (Sodium Chloride) 252.5 mls @ 5.05 mls/hr IV .Q24H [facility]; 25 MCG/HR PRN Reason: Protocol Last Admin: 07/30/17 17:44 Dose: 25 mcg/hr, 5.05 mls/hr Ceftriaxone Sodium (Rocephin 1 Gram Ivpb) 1 gm in 100 mls @ 100 mls/hr IVPB DAILY [facility] PRN Reason: Protocol Last Admin: 07/31/17 09:12 Dose: 100 mls/hr Potassium Chloride 20 meq/ (Sodium Chloride) 1,010 mls @ 60 mls/hr IV .[id number] [facility] Last Admin: 07/31/17 01:09 Dose: 60 mls/hr Insulin Human Regular (Humulin R Low) 0 units SC ACHS [facility] PRN Reason: Protocol Last Admin: 07/31/17 08:38 Dose: Not Given Lactulose (Enulose) 20 gm PO BID [facility] Last Admin: 07/29/17 22:15 Dose: Not Given Lidocaine (Lidoderm) 1 ea TD DAILY [facility] Last Admin: 07/31/17 09:13 Dose: 1 ea Morphine Sulfate (Morphine) 2 mg IVP Q15M PRN PRN Reason: Pain, moderate (4-7) Ondansetron HCl (Zofran Inj) 4 mg IVP Q6H PRN PRN Reason: Nausea/Vomiting Last Admin: 07/29/17 21:15 Dose: 4 mg Rifaximin (Xifaxan) 550 mg PO BID [facility] PRN Reason: Protocol Last Admin: 07/29/17 20:29 Dose: Not Given Spironolactone (Aldactone) 25 mg PO BID [facility] Last Admin: 07/23/17 10:51 Dose: 25 mg Thiamine HCl (Vitamin B1 Inj) 100 mg IM BID [facility] Last Admin: 07/31/17 09:13 Dose: 100 mg - Labs Labs: 07/31/17 05:40 07/31/17 05:40 PT 19.6 Seconds (9.9-11.8) H 07/29/17 18:05 INR 1.81 (0.93-1.08) H 07/29/17 18:05 APTT 32.1 Seconds (23.7-30.8) H 07/29/17 18:05 - Constitutional Appears: Chronically Ill - Eye Exam Eye Exam: PERRL, Scleral icterus - ENT Exam ENT Exam: Mucous Membranes Moist - Respiratory Exam Respiratory Exam: Decreased Breath Sounds, NORMAL BREATHING PATTERN - Cardiovascular Exam Cardiovascular Exam: REGULAR RHYTHM, +S1, +S2 - GI/Abdominal Exam GI & Abdominal Exam: Distended, Normal Bowel Sounds - Extremities Exam Extremities Exam: Normal Capillary Refill, Pedal Edema - Neurological Exam Neurological Exam: Altered - Skin Skin Exam: Dry, Warm Additional comments: jaundiced Assessment and Plan - Assessment and Plan (Free Text) Assessment: 56 kareem old male with history of dementia, neurosyphilis, schizophrenia and advanced pancreatic cancer who was admitted with sepsis and ascites, s/p paracentisis and anemia. The patient has since developed coffee ground emesis and now has NG tube. His overall performance status continues to deteriorate. As per oncology, he is not a candidate for chemotherapy. GI, ID consultants suggest transition to hospice care. Mr. Saha has been evaluated by palliative services and meets criteria for hospice care. Would advocate for DNR/DNI and hospice care at this time. Ethics meeting to follow for further discussion and recommendations on Mr Saha's care. The patient's legal guardian, Mandy Worley Esq. informed of patient' s decline in health. Mr. Worley awaiting recommendations from Ethic Committee. Plan: Recommendations: DNR/DNI Hospice care
--- NOTE | 2017-07-31 15:40 | PN ---
DATE: 07/31/2017 LOCATION: The patient is in room 372, bed 1. REASON FOR CONSULTATION: Followup cardiac evaluation. Rule out cardiac arrhythmia, pancreatic carcinoma of the metastasis, ascites. SUBJECTIVE: The patient lying flat in bed without chest pain, shortness of breath, palpitations. The patients's abdomen has been distended due to ascites. The patient also has NG tube due to vomiting coffee ground material. PHYSICAL EXAMINATION: VITAL SIGNS: Blood pressure 105/68, respirations 20, pulse 88, temperature 99.4. HEENT: Head is normocephalic. Eyes; pupils are normal. Conjunctivae slightly pale. NECK: JVP low. Carotid equal. Thorax, AP diameter normal. LUNGS: Clear. ABDOMEN: Protuberant due to large amount of ascites. PERIPHERY: No clubbing. No cyanosis. LABORATORY DATA: WBC 12.3, hemoglobin 10.2, hematocrit 31.0, platelet 194. Sodium 138, potassium 3.6, BUN 4, creatinine 0.4, random sugar 107. Phosphorus 2.6, magnesium 1.9, total protein 5.4. albumin 2.4. Total protein 5.4, albumin 2.5. Total bilirubin 8.1, direct bilirubin 7.0, alkaline phosphatase 67. DIAGNOSES: 1. Pancreatic carcinoma with metastasis. 2. Large ascites status post large volume paracentesis in the past. 3. Episodes of coffee ground material vomiting. 4. No arrhythmia from cardiac point of view noted. PLAN: The patient has NG tube put in since then vomiting coffee-ground material, anemia, carcinoma of the pancreas with metastasis, so far no arrhythmia noted. The initial consultation was for possible ventricular tachycardia, but actually that was artifact. The patient is getting spironolactone 25 b.i.d., Lovenox 30 subcutaneous daily, Rocephin 1 g IV daily, Protonix 40 mg IV daily. The patient's potassium yesterday was 3.2, now potassium is corrected. Today, potassium is 3.6. We will continue present therapy. We will continue to follow. Jayme Park MD
--- NOTE | 2017-07-31 15:43 | CP.PCM.PN ---
Subjective - Date & Time of Evaluation Date of Evaluation: 07/31/17 Time of Evaluation: 11:30 - Subjective Subjective: Comfortable, not in distress, afebrile. Objective - Vital Signs/Intake and Output Vital Signs (last 24 hours): Temp Pulse Resp BP Pulse Ox 99.4 F 88 20 105/68 98 07/31/17 08:19 07/31/17 08:19 07/31/17 08:19 07/31/17 08:19 07/31/17 08:19 Intake and Output: 07/31/17 07/31/17 06:59 18:59 Intake Total 0 Output Total 400 Balance -400 - Medications Medications: Current Medications Collagenase (Santyl) 1 gm TOP DAILY [facility] Last Admin: 07/31/17 09:14 Dose: 1 applic Enoxaparin Sodium (Lovenox) 30 mg SC DAILY [facility] PRN Reason: Protocol Last Admin: 07/31/17 09:14 Dose: 30 mg Phenytoin 150 mg/ Sodium (Chloride) 53 mls @ 104 mls/hr IVPB 0600,1800 [facility] Last Admin: 07/31/17 05:24 Dose: 104 mls/hr Pantoprazole Sodium (Protonix 40mg Ivpb) 40 mg in 100 mls @ 20 mls/hr IVPB .Q5H [facility] Last Admin: 07/31/17 09:05 Dose: 20 mls/hr Octreotide Acetate 1,250 mcg/ (Sodium Chloride) 252.5 mls @ 5.05 mls/hr IV .Q24H [facility]; 25 MCG/HR PRN Reason: Protocol Last Admin: 07/30/17 17:44 Dose: 25 mcg/hr, 5.05 mls/hr Ceftriaxone Sodium (Rocephin 1 Gram Ivpb) 1 gm in 100 mls @ 100 mls/hr IVPB DAILY [facility] PRN Reason: Protocol Last Admin: 07/31/17 09:12 Dose: 100 mls/hr Potassium Chloride 20 meq/ (Sodium Chloride) 1,010 mls @ 60 mls/hr IV .[id number] [facility] Last Admin: 07/31/17 01:09 Dose: 60 mls/hr Insulin Human Regular (Humulin R Low) 0 units SC ACHS [facility] PRN Reason: Protocol Last Admin: 07/31/17 08:38 Dose: Not Given Lactulose (Enulose) 20 gm PO BID [facility] Last Admin: 07/29/17 22:15 Dose: Not Given Lidocaine (Lidoderm) 1 ea TD DAILY [facility] Last Admin: 07/31/17 09:13 Dose: 1 ea Morphine Sulfate (Morphine) 2 mg IVP Q15M PRN PRN Reason: Pain, moderate (4-7) Ondansetron HCl (Zofran Inj) 4 mg IVP Q6H PRN PRN Reason: Nausea/Vomiting Last Admin: 07/29/17 21:15 Dose: 4 mg Rifaximin (Xifaxan) 550 mg PO BID [facility] PRN Reason: Protocol Last Admin: 07/29/17 20:29 Dose: Not Given Spironolactone (Aldactone) 25 mg PO BID [facility] Last Admin: 07/23/17 10:51 Dose: 25 mg Thiamine HCl (Vitamin B1 Inj) 100 mg IM BID [facility] Last Admin: 07/31/17 09:13 Dose: 100 mg - Labs Labs: 07/31/17 05:40 07/31/17 05:40 PT 19.6 Seconds (9.9-11.8) H 07/29/17 18:05 INR 1.81 (0.93-1.08) H 07/29/17 18:05 APTT 32.1 Seconds (23.7-30.8) H 07/29/17 18:05 - Constitutional Appears: Non-toxic, No Acute Distress - Head Exam Head Exam: NORMAL INSPECTION - ENT Exam ENT Exam: Mucous Membranes Moist - Neck Exam Neck Exam: absent: Meningismus - Respiratory Exam Respiratory Exam: Decreased Breath Sounds - Cardiovascular Exam Cardiovascular Exam: +S1, +S2 - GI/Abdominal Exam GI & Abdominal Exam: Soft. absent: Tenderness Assessment and Plan - Assessment and Plan (Free Text) Plan: Assessment S/P Systemic Inflammatory Response Syndrome, with no evidence of new onset sepsis acute encephalopathy probably due to hepatic encephalopathy pancreatic cancer with liver metastases S/P chemotherapy and radiation Esophageal varices HTN DM dementia history of neurosyphilis seizure disorder asthma schizophrenia Plan repeat blood cx, urine cx are negative; stool for C. diff. is negative; repeat CXR does not show infiltrates will continue to monitor off antibiotics since he is at risk for nosocomial infections
--- NOTE | 2017-07-31 20:16 | CP.PCM.PN ---
Subjective - Date & Time of Evaluation Date of Evaluation: 07/31/17 Time of Evaluation: 10:15 - Subjective Subjective: Heme/Onc progress note for Dr. Finch Patient seen and examined at bedside this morning. No acute overnight events reported by nursing. Patient denied chest pain, palpitations, SOB, abdominal pain. NGT in place on suction. Reported mild nausea. Otherwise, no new complaints. Ethics committee to evaluate for recommendations of hospice care. Objective - Vital Signs/Intake and Output Vital Signs (last 24 hours): Temp Pulse Resp BP Pulse Ox 99.0 F 78 19 112/70 94 L 07/31/17 16:00 07/31/17 18:00 07/31/17 16:00 07/31/17 16:00 07/31/17 16:00 - Medications Medications: Current Medications Collagenase (Santyl) 1 gm TOP DAILY [facility] Last Admin: 07/31/17 09:14 Dose: 1 applic Enoxaparin Sodium (Lovenox) 30 mg SC DAILY [facility] PRN Reason: Protocol Last Admin: 07/31/17 09:14 Dose: 30 mg Phenytoin 150 mg/ Sodium (Chloride) 53 mls @ 104 mls/hr IVPB 0600,1800 [facility] Last Admin: 07/31/17 17:58 Dose: 104 mls/hr Pantoprazole Sodium (Protonix 40mg Ivpb) 40 mg in 100 mls @ 20 mls/hr IVPB .Q5H [facility] Last Admin: 07/31/17 18:10 Dose: 20 mls/hr Octreotide Acetate 1,250 mcg/ (Sodium Chloride) 252.5 mls @ 5.05 mls/hr IV .Q24H [facility]; 25 MCG/HR PRN Reason: Protocol Last Admin: 07/30/17 17:44 Dose: 25 mcg/hr, 5.05 mls/hr Ceftriaxone Sodium (Rocephin 1 Gram Ivpb) 1 gm in 100 mls @ 100 mls/hr IVPB DAILY [facility] PRN Reason: Protocol Last Admin: 07/31/17 09:12 Dose: 100 mls/hr Potassium Chloride 20 meq/ (Sodium Chloride) 1,010 mls @ 60 mls/hr IV .[id number] [facility] Last Admin: 07/31/17 16:24 Dose: 60 mls/hr Insulin Human Regular (Humulin R Low) 0 units SC ACHS [facility] PRN Reason: Protocol Last Admin: 07/31/17 18:09 Dose: Not Given Lactulose (Enulose) 20 gm PO BID [facility] Last Admin: 07/29/17 22:15 Dose: Not Given Lidocaine (Lidoderm) 1 ea TD DAILY [facility] Last Admin: 07/31/17 09:13 Dose: 1 ea Morphine Sulfate (Morphine) 2 mg IVP Q15M PRN PRN Reason: Pain, moderate (4-7) Ondansetron HCl (Zofran Inj) 4 mg IVP Q6H PRN PRN Reason: Nausea/Vomiting Last Admin: 07/29/17 21:15 Dose: 4 mg Rifaximin (Xifaxan) 550 mg PO BID [facility] PRN Reason: Protocol Last Admin: 07/29/17 20:29 Dose: Not Given Spironolactone (Aldactone) 25 mg PO BID [facility] Last Admin: 07/23/17 10:51 Dose: 25 mg Thiamine HCl (Vitamin B1 Inj) 100 mg IM BID [facility] Last Admin: 07/31/17 17:57 Dose: 100 mg - Labs Labs: 07/31/17 05:40 07/31/17 05:40 PT 19.6 Seconds (9.9-11.8) H 07/29/17 18:05 INR 1.81 (0.93-1.08) H 07/29/17 18:05 APTT 32.1 Seconds (23.7-30.8) H 07/29/17 18:05 - Constitutional Appears: No Acute Distress - Head Exam Head Exam: ATRAUMATIC, NORMAL INSPECTION, NORMOCEPHALIC - Eye Exam Eye Exam: EOMI Pupil Exam: PERRL - ENT Exam ENT Exam: Normal Exam - Respiratory Exam Respiratory Exam: absent: Rales, Rhonchi, Wheezes - Cardiovascular Exam Cardiovascular Exam: RRR, +S1, +S2. absent: Gallop, Rubs, Murmur - GI/Abdominal Exam GI & Abdominal Exam: Soft. absent: Distended, Firm, Guarding, Rigid, Tenderness , Rebound - Neurological Exam Neurological Exam: Alert, Awake - Psychiatric Exam Psychiatric exam: Normal Affect, Normal Mood - Skin Skin Exam: Dry, Intact, Normal Color, Warm Assessment and Plan - Assessment and Plan (Free Text) Plan: 56yo male with history of dementia, schizophrenia, seizure disorder, neurosyphilis, stave IV pancreatic ca s/p carbo/gemzar admitted for sepsis secondary to obstructed CBD/biliary stricture 1. Stage IV pancreatic cancer -Patient is s/p chemotherapy treatment with carbo/gemzar -At this time, due to his poor performance status further chemotherapy is not recommended -Recommend evaluation by ethics committee for hospice care; recommend reaching out to his state appointed guardian -Palliative consult 2. CBD obstruction -Patient is s/p ERCP by GI (Dr. Guerrero) and was found to have a obstructed CBD stent and biliary stricture -Recommend follow up with GI recommendations Patient seen and case discussed with attending, Dr. Finch
--- NOTE | 2017-07-31 21:37 | CP.PCM.PN ---
Subjective - Date & Time of Evaluation Date of Evaluation: 07/31/17 Time of Evaluation: 13:00 - Subjective Subjective: No BM reported by nursing staff; still with NG to suction; Objective - Vital Signs/Intake and Output Vital Signs (last 24 hours): Temp Pulse Resp BP Pulse Ox 99.0 F 78 19 112/70 94 L 07/31/17 16:00 07/31/17 18:00 07/31/17 16:00 07/31/17 16:00 07/31/17 16:00 - Medications Medications: Current Medications Collagenase (Santyl) 1 gm TOP DAILY [facility] Last Admin: 07/31/17 09:14 Dose: 1 applic Enoxaparin Sodium (Lovenox) 30 mg SC DAILY [facility] PRN Reason: Protocol Last Admin: 07/31/17 09:14 Dose: 30 mg Phenytoin 150 mg/ Sodium (Chloride) 53 mls @ 104 mls/hr IVPB 0600,1800 [facility] Last Admin: 07/31/17 17:58 Dose: 104 mls/hr Pantoprazole Sodium (Protonix 40mg Ivpb) 40 mg in 100 mls @ 20 mls/hr IVPB .Q5H [facility] Last Admin: 07/31/17 21:01 Dose: 20 mls/hr Octreotide Acetate 1,250 mcg/ (Sodium Chloride) 252.5 mls @ 5.05 mls/hr IV .Q24H [facility]; 25 MCG/HR PRN Reason: Protocol Last Admin: 07/31/17 21:07 Dose: 25 mcg/hr, 5.05 mls/hr Ceftriaxone Sodium (Rocephin 1 Gram Ivpb) 1 gm in 100 mls @ 100 mls/hr IVPB DAILY [facility] PRN Reason: Protocol Last Admin: 07/31/17 09:12 Dose: 100 mls/hr Potassium Chloride 20 meq/ (Sodium Chloride) 1,010 mls @ 60 mls/hr IV .[id number] [facility] Last Admin: 07/31/17 16:24 Dose: 60 mls/hr Insulin Human Regular (Humulin R Low) 0 units SC ACHS [facility] PRN Reason: Protocol Last Admin: 07/31/17 18:09 Dose: Not Given Lactulose (Enulose) 20 gm PO BID [facility] Last Admin: 07/29/17 22:15 Dose: Not Given Lidocaine (Lidoderm) 1 ea TD DAILY [facility] Last Admin: 07/31/17 09:13 Dose: 1 ea Morphine Sulfate (Morphine) 2 mg IVP Q15M PRN PRN Reason: Pain, moderate (4-7) Ondansetron HCl (Zofran Inj) 4 mg IVP Q6H PRN PRN Reason: Nausea/Vomiting Last Admin: 07/29/17 21:15 Dose: 4 mg Rifaximin (Xifaxan) 550 mg PO BID [facility] PRN Reason: Protocol Last Admin: 07/29/17 20:29 Dose: Not Given Spironolactone (Aldactone) 25 mg PO BID [facility] Last Admin: 07/23/17 10:51 Dose: 25 mg Thiamine HCl (Vitamin B1 Inj) 100 mg IM BID [facility] Last Admin: 07/31/17 17:57 Dose: 100 mg - Labs Labs: 07/31/17 05:40 07/31/17 05:40 PT 19.6 Seconds (9.9-11.8) H 07/29/17 18:05 INR 1.81 (0.93-1.08) H 07/29/17 18:05 APTT 32.1 Seconds (23.7-30.8) H 07/29/17 18:05 - Constitutional Appears: No Acute Distress - Head Exam Head Exam: NORMOCEPHALIC - ENT Exam ENT Exam: Mucous Membranes Moist - Respiratory Exam Respiratory Exam: NORMAL BREATHING PATTERN Additional comments: Mild R sided rales; - Cardiovascular Exam Cardiovascular Exam: REGULAR RHYTHM, +S1, +S2 - GI/Abdominal Exam GI & Abdominal Exam: Distended, Soft - Exam Additional comments: niño in place; - Extremities Exam Additional comments: moderately edematous ext; - Neurological Exam Neurological Exam: Alert, Awake - Skin Skin Exam: Warm. absent: Cyanosis Assessment and Plan (1) ANA MARIA (acute kidney injury) Status: Resolved (2) Hypernatremia Status: Resolved (3) Hypokalemia Assessment & Plan: Improved with decreased stool losses; continue with 20 meq/L KCl in IVF; Status: Acute (4) Hypotension Assessment & Plan: Improved; continue gentle IVF w/ NS at 60 cc/hr; Status: Acute (5) SIRS (systemic inflammatory response syndrome) Status: Acute (6) Hypophosphatemia Status: Resolved (7) Hematemesis Assessment & Plan: s/p coffee ground emesis; has NG tube to suction; continue PPI (will help prevent alkalosis as well); Status: Acute
[2017-08-01] MEDS: Pantoprazole 40mg/100ml IVPB 40 MG/100 ML BAG IVPB SCH ×2 (01:24→06:08)
--- NOTE | 2017-08-01 02:43 | PN ---
DATE: SUBJECTIVE: The patient is 56 years old male. The patient is seen and examined at the bedside, having NG tube, abdomen is distended, do not look like in acute distress. Denies chest pain, palpitation or shortness of breath, reports mild noxiousness. No fever. No chills. Today, we have Ethics Committee meeting for the patient's situation. Ethics Committee evaluated for recommendations of hospice care. PHYSICAL EXAMINATION: VITAL SIGNS: Temperature 99.0, pulse 78, respiratory rate 19, blood pressure 112/70, and pulse oximetry 94. HEENT: Head is normocephalic and atraumatic. Eyes; PERRLA. Extraocular muscles intact. Conjunctivae clear. Nose patent. Have NG tube. Mucous membrane moist. NECK: Supple. No carotid bruit, JVD or thyromegaly. CHEST: Bilateral symmetrical. HEART: S1 and S2 positive. LUNGS: Clear to auscultation. ABDOMEN: Tense. Water wave positive. No organomegaly. EXTREMITIES: No edema. No cyanosis. NEUROLOGIC: The patient is awake, alert and follows simple commands. MEDICATIONS: Santyl, Lovenox, NS, Protonix, Rocephin, insulin, Enulose, Lidoderm, morphine, Zofran, Aldactone, and vitamin B1. LABORATORY DATA: White blood cells 12.3, hemoglobin 10.2, hematocrit 31.0, and platelet 194. Sodium 138, potassium 3.6, BUN 4, creatinine 0.4, and glucose 95. ASSESSMENT AND PLAN: Mr. John Saha is a 56 years old male with history of neurosyphilis, dementia, schizophrenia, seizure disorder, stage IV pancreatic carcinoma, status post carboplatin/Gemzar. Has sepsis secondary to obstructive common bile duct/biliary stricture. The patient has became on therapy treatment. The patient is deteriorating, ascites, multiple time paracentesis done; anemia, status post blood transfusion, status post couple of times, rapid response. Recommending evaluation by Ethics Committee for hospice care. Recommended reaching over to see the state appointed guardian, palliative consult. The patient is status post endoscopic retrograde cholangiopancreatogram by Gastroenterology, Dr. Guerrero and was found to have associated common bile dict stent and biliary stricture. The patient is seen by game master, Infectious Disease, seen by Davey Ragland, comfort care nurse. Paramonte Ellyn talk to the patient as a guardian, poor prognosis, history of coffee-ground emesis. Overall performance status continues to be deteriorating. The patient is not candidate for chemotherapy. Gastrointestinal and Infectious Disease consult suggested transition to hospice care. Mr. Saha has evaluated by palliative services and meet criteria for hospice care. The patient legal guardian, Vish Worley Robi informed the patient declined in the health. Mr. Worley waiting recommendation from Ethics Committee. Meanwhile, we will continue present treatment and we will followup. Michelle Castillo MD
[2017-08-01 06:32] LABS: BASO # 0.02 K/mm3 (0.0-2.0); BASO % 0.1 % (0.0-3.0); EOS # 0.1 (0.0-0.7); EOS % 0.5 % (1.5-5.0); GRAN # 13.07 (1.4-6.5); GRAN % 91.1 % (50.0-68.0); HEMATOCRIT 29.3 % (42.0-52.0); LYMPH # 0.4 (1.2-3.4); LYMPH % 2.9 % (22.0-35.0); MEAN CELL VOLUME 88.3 fl (80.0-105.0); MEAN CORPUSCULAR HEMOGLOBIN 29.2 pg (25.0-35.0); MEAN CORPUSCULAR HGB CONC 33.1 g/dl (31.0-37.0); MONO # 0.8 (0.1-0.6); MONO % 5.4 % (1.0-6.0); RED CELL DISTRIBUTION WIDTH 21.9 % (11.5-14.5); WHITE BLOOD COUNT 14.4 10^3/ul (4.5-11.0)
[2017-08-01] MEDS: SODIUM CHLORIDE 0.9% IVPB SCH ×2 (06:41→18:28)
[2017-08-01] MEDS: PHENYTOIN IVPB SCH ×2 (06:41→18:28)
[2017-08-01 06:49] LABS: ALB/GLOB RATIO 0.8 (1.1-1.8); ALKALINE PHOSPHATASE 715 U/L (38-126); ALT/SGPT 25 U/L (7-56); AST/SGOT 47 U/L (17-59); BILIRUBIN,TOTAL 7.4 mg/dL (0.2-1.3); BLOOD UREA NITROGEN 5 mg/dL (7-21); CALCIUM 7.3 mg/dL (8.4-10.5); CARBON DIOXIDE 23 mmol/L (21-33); CHLORIDE 106 mmol/L (98-107); GFR AFRICAN-AMERICAN > 60; GLUCOSE,RANDOM 111 mg/dL (70-110); POTASSIUM 3.5 mmol/L (3.6-5.0); SODIUM 141 mmol/L (132-148); TOTAL PROTEIN 5.1 g/dL (5.8-8.3)
[2017-08-01] MEDS: Insulin Reg-LOW-Coverage SC SCH ×4 (07:51→22:47)
[2017-08-01] MEDS: Enoxaparin 30 mg Syringe SC SCH (10:48)
[2017-08-01] MEDS: Lidocaine 5% Patch TD SCH (10:48)
[2017-08-01] MEDS: cefTRIAXone 1 gm 1 GM/100 ML BAG IVPB SCH (10:49)
[2017-08-01] MEDS: Thiamine 100 mg/ml Inj IM SCH ×2 (10:49→18:29)
[2017-08-01] MEDS: Collagenase 250 Units/gm Ointment(30 gm) TOP SCH (10:49)
[2017-08-01] MEDS ORDERED: WATER IV SCH (12:15)
[2017-08-01] MEDS ORDERED: POTASSIUM CH IV SCH (12:15)
[2017-08-01] MEDS ORDERED: DEXTROSE IV SCH (12:15)
[2017-08-01] MEDS ORDERED: D5W IV SCH (12:15)
--- NOTE | 2017-08-01 12:29 | CP.PCM.PN ---
Subjective - Date & Time of Evaluation Date of Evaluation: 08/01/17 Time of Evaluation: 10:30 - Subjective Subjective: Comfortable in bed, not in distress, no fevers. Objective - Vital Signs/Intake and Output Vital Signs (last 24 hours): Temp Pulse Resp BP Pulse Ox 99.0 F 86 19 112/70 94 L 07/31/17 16:00 08/01/17 02:00 07/31/17 16:00 07/31/17 16:00 07/31/17 16:00 Intake and Output: 08/01/17 08/01/17 06:59 18:59 Output Total 800 Balance -800 - Medications Medications: Current Medications Collagenase (Santyl) 1 gm TOP DAILY [facility] Last Admin: 07/31/17 09:14 Dose: 1 applic Enoxaparin Sodium (Lovenox) 30 mg SC DAILY [facility] PRN Reason: Protocol Last Admin: 07/31/17 09:14 Dose: 30 mg Phenytoin 150 mg/ Sodium (Chloride) 53 mls @ 104 mls/hr IVPB 0600,1800 [facility] Last Admin: 08/01/17 06:41 Dose: 104 mls/hr Pantoprazole Sodium (Protonix 40mg Ivpb) 40 mg in 100 mls @ 20 mls/hr IVPB .Q5H [facility] Last Admin: 08/01/17 06:08 Dose: 20 mls/hr Octreotide Acetate 1,250 mcg/ (Sodium Chloride) 252.5 mls @ 5.05 mls/hr IV .Q24H [facility]; 25 MCG/HR PRN Reason: Protocol Last Admin: 07/31/17 21:07 Dose: 25 mcg/hr, 5.05 mls/hr Ceftriaxone Sodium (Rocephin 1 Gram Ivpb) 1 gm in 100 mls @ 100 mls/hr IVPB DAILY [facility] PRN Reason: Protocol Last Admin: 07/31/17 09:12 Dose: 100 mls/hr Potassium Chloride 20 meq/ (Sodium Chloride) 1,010 mls @ 60 mls/hr IV .[id number] [facility] Last Admin: 08/01/17 06:46 Dose: 60 mls/hr Insulin Human Regular (Humulin R Low) 0 units SC ACHS [facility] PRN Reason: Protocol Last Admin: 07/31/17 22:49 Dose: Not Given Lactulose (Enulose) 20 gm PO BID [facility] Last Admin: 07/29/17 22:15 Dose: Not Given Lidocaine (Lidoderm) 1 ea TD DAILY [facility] Last Admin: 07/31/17 09:13 Dose: 1 ea Morphine Sulfate (Morphine) 2 mg IVP Q15M PRN PRN Reason: Pain, moderate (4-7) Ondansetron HCl (Zofran Inj) 4 mg IVP Q6H PRN PRN Reason: Nausea/Vomiting Last Admin: 07/29/17 21:15 Dose: 4 mg Rifaximin (Xifaxan) 550 mg PO BID [facility] PRN Reason: Protocol Last Admin: 07/29/17 20:29 Dose: Not Given Spironolactone (Aldactone) 25 mg PO BID [facility] Last Admin: 07/23/17 10:51 Dose: 25 mg Thiamine HCl (Vitamin B1 Inj) 100 mg IM BID [facility] Last Admin: 07/31/17 17:57 Dose: 100 mg - Labs Labs: 08/01/17 05:00 08/01/17 06:23 PT 19.6 Seconds (9.9-11.8) H 07/29/17 18:05 INR 1.81 (0.93-1.08) H 07/29/17 18:05 APTT 32.1 Seconds (23.7-30.8) H 07/29/17 18:05 - Constitutional Appears: Non-toxic, No Acute Distress - Head Exam Head Exam: NORMAL INSPECTION - ENT Exam ENT Exam: Mucous Membranes Moist - Neck Exam Neck Exam: absent: Meningismus - Respiratory Exam Respiratory Exam: Decreased Breath Sounds - Cardiovascular Exam Cardiovascular Exam: +S1, +S2 - GI/Abdominal Exam GI & Abdominal Exam: Soft. absent: Tenderness Assessment and Plan - Assessment and Plan (Free Text) Plan: Assessment S/P Systemic Inflammatory Response Syndrome, with no evidence of new onset sepsis acute encephalopathy probably due to hepatic encephalopathy pancreatic cancer with liver metastases S/P chemotherapy and radiation Esophageal varices HTN DM dementia history of neurosyphilis seizure disorder asthma schizophrenia Plan repeat blood cx, urine cx are negative; stool for C. diff. is negative; repeat CXR does not show infiltrates will continue to monitor off antibiotics since he is at risk for hospital- acquired infections
--- NOTE | 2017-08-01 12:42 | CP.PCM.PN ---
Subjective - Date & Time of Evaluation Date of Evaluation: 08/01/17 Time of Evaluation: 12:36 - Subjective Subjective: Heme/Onc progress note for Dr. Finch Patient seen and examined at bedside this morning. No acute overnight events reported by nursing. NGT in place on suction. No new complaints reported. Palliative/Ethics committee to submit recommendation of hospice care to state guardian. Objective - Vital Signs/Intake and Output Vital Signs (last 24 hours): Temp Pulse Resp BP Pulse Ox 99.9 F H 93 H 20 139/76 92 L 08/01/17 08:41 08/01/17 08:41 08/01/17 08:41 08/01/17 08:41 08/01/17 08:41 Intake and Output: 08/01/17 08/01/17 06:59 18:59 Output Total 800 Balance -800 - Medications Medications: Current Medications Collagenase (Santyl) 1 gm TOP DAILY [facility] Last Admin: 08/01/17 10:49 Dose: 1 applic Enoxaparin Sodium (Lovenox) 30 mg SC DAILY [facility] PRN Reason: Protocol Last Admin: 08/01/17 10:48 Dose: 30 mg Phenytoin 150 mg/ Sodium (Chloride) 53 mls @ 104 mls/hr IVPB 0600,1800 [facility] Last Admin: 08/01/17 06:41 Dose: 104 mls/hr Pantoprazole Sodium (Protonix 40mg Ivpb) 40 mg in 100 mls @ 20 mls/hr IVPB .Q5H [facility] Last Admin: 08/01/17 06:08 Dose: 20 mls/hr Octreotide Acetate 1,250 mcg/ (Sodium Chloride) 252.5 mls @ 5.05 mls/hr IV .Q24H [facility]; 25 MCG/HR PRN Reason: Protocol Last Admin: 07/31/17 21:07 Dose: 25 mcg/hr, 5.05 mls/hr Ceftriaxone Sodium (Rocephin 1 Gram Ivpb) 1 gm in 100 mls @ 100 mls/hr IVPB DAILY [facility] PRN Reason: Protocol Last Admin: 08/01/17 10:49 Dose: 100 mls/hr Potassium Chloride (Potassium Chloride 10 Meq/100 Ml) 10 meq in 100 mls @ 100 mls/hr IVPB Q2H [facility] Stop: 08/01/17 13:59 Last Admin: 08/01/17 12:27 Dose: 100 mls/hr Potassium Chloride 20 meq/ (Dextrose) 1,010 mls @ 60 mls/hr IV .[id number] [facility] Insulin Human Regular (Humulin R Low) 0 units SC ACHS [facility] PRN Reason: Protocol Last Admin: 08/01/17 07:51 Dose: Not Given Lactulose (Enulose) 20 gm PO BID [facility] Last Admin: 07/29/17 22:15 Dose: Not Given Lidocaine (Lidoderm) 1 ea TD DAILY [facility] Last Admin: 08/01/17 10:48 Dose: 1 ea Morphine Sulfate (Morphine) 2 mg IVP Q15M PRN PRN Reason: Pain, moderate (4-7) Ondansetron HCl (Zofran Inj) 4 mg IVP Q6H PRN PRN Reason: Nausea/Vomiting Last Admin: 07/29/17 21:15 Dose: 4 mg Rifaximin (Xifaxan) 550 mg PO BID [facility] PRN Reason: Protocol Last Admin: 07/29/17 20:29 Dose: Not Given Spironolactone (Aldactone) 25 mg PO BID [facility] Last Admin: 07/23/17 10:51 Dose: 25 mg Thiamine HCl (Vitamin B1 Inj) 100 mg IM BID [facility] Last Admin: 08/01/17 10:49 Dose: 100 mg - Labs Labs: 08/01/17 05:00 08/01/17 06:23 PT 19.6 Seconds (9.9-11.8) H 07/29/17 18:05 INR 1.81 (0.93-1.08) H 07/29/17 18:05 APTT 32.1 Seconds (23.7-30.8) H 07/29/17 18:05 - Constitutional Appears: No Acute Distress - Head Exam Head Exam: ATRAUMATIC, NORMAL INSPECTION, NORMOCEPHALIC - Eye Exam Eye Exam: EOMI, PERRL - ENT Exam ENT Exam: Mucous Membranes Moist - Respiratory Exam Respiratory Exam: Decreased Breath Sounds. absent: Rales, Rhonchi, Wheezes - Cardiovascular Exam Cardiovascular Exam: +S1, +S2. absent: Gallop, Rubs, Murmur - GI/Abdominal Exam GI & Abdominal Exam: Soft. absent: Distended, Firm, Guarding, Rigid, Tenderness , Rebound - Neurological Exam Neurological Exam: Alert, Awake - Psychiatric Exam Psychiatric exam: Normal Affect, Normal Mood - Skin Skin Exam: Dry, Intact, Normal Color, Warm Assessment and Plan - Assessment and Plan (Free Text) Plan: 56yo male with history of dementia, schizophrenia, seizure disorder, neurosyphilis, stave IV pancreatic ca s/p carbo/gemzar admitted for sepsis secondary to obstructed CBD/biliary stricture 1. Stage IV pancreatic cancer -Patient is s/p chemotherapy treatment with carbo/gemzar -At this time, due to his poor performance status further chemotherapy is not recommended -Patient underwent evaluation by ethics committee for hospice care and will be reaching out to his state appointed guardian -Recommend hospice care for Mr. Saha given his poor prognosis and limited treatment options -Palliative consult 2. CBD obstruction -Patient is s/p ERCP by GI (Dr. Guerrero) and was found to have a obstructed CBD stent and biliary stricture -Recommend follow up with GI recommendations Patient seen and case discussed with attending, Dr. Finch
--- NOTE | 2017-08-01 16:22 | PN ---
DATE: REASON FOR CONSULTATION: Follow up cardiac evaluation, rule out cardiac arrhythmia, pancreatic cancer with metastasis and ascites. SUBJECTIVE: The patient denies any chest pain, shortness of breath, any palpitation. Lying flat in the bed, not in apparent distress. PHYSICAL EXAMINATION VITAL SIGNS: As follows: Temperature 99, heart rate 93, blood pressure 139/76. HEENT: PERRLA. Extraocular muscles intact. NECK: Supple. No carotid bruits or thyromegaly. CHEST: Clear to auscultation. HEART: S1 and S2 regular. ABDOMEN: Soft. EXTREMITIES: Clubbing and cyanosis negative. LABORATORY DATA: Blood workup as follows: WBC 14.4, hemoglobin 9.1, hematocrit 29.3, platelet count 171. Chemistry: Shows sodium 141, potassium 3.5, chloride , creatinine 0.3. IMPRESSION: Hypokalemia, carcinoma of the pancreas with metastasis, enlarged ascites, history of paracentesis in the past, coffee-ground material in the past. No arrhythmia noted. RECOMMENDATION: Continue DVT prophylaxis, continue antibiotic. We will supplement potassium IV because the patient had coffee-ground vomitus earlier and is n.p.o. Overall, the patient's condition is critical. Long-term prognosis is guarded. Somebody already supplemented potassium. We will follow with you. Jayme Harris MD
--- NOTE | 2017-08-01 18:03 | CP.PCM.PN ---
<Tate Quiles - Last Filed: 08/01/17 18:04> Subjective - Date & Time of Evaluation Date of Evaluation: 08/01/17 Time of Evaluation: 18:01 - Subjective Subjective: GI: Dr. Guerrero Pt seen and examined. Pt is resting comfortably in bed. NGT was removed. No acute events. Objective - Vital Signs/Intake and Output Vital Signs (last 24 hours): Temp Pulse Resp BP Pulse Ox 99.0 F 89 20 120/56 L 92 L 08/01/17 16:00 08/01/17 16:00 08/01/17 16:00 08/01/17 16:00 08/01/17 16:00 Intake and Output: 08/01/17 08/01/17 06:59 18:59 Output Total 800 Balance -800 - Medications Medications: Current Medications Collagenase (Santyl) 1 gm TOP DAILY [facility] Last Admin: 08/01/17 10:49 Dose: 1 applic Enoxaparin Sodium (Lovenox) 30 mg SC DAILY [facility] PRN Reason: Protocol Last Admin: 08/01/17 10:48 Dose: 30 mg Phenytoin 150 mg/ Sodium (Chloride) 53 mls @ 104 mls/hr IVPB 0600,1800 [facility] Last Admin: 08/01/17 06:41 Dose: 104 mls/hr Pantoprazole Sodium (Protonix 40mg Ivpb) 40 mg in 100 mls @ 20 mls/hr IVPB .Q5H [facility] Last Admin: 08/01/17 06:08 Dose: 20 mls/hr Octreotide Acetate 1,250 mcg/ (Sodium Chloride) 252.5 mls @ 5.05 mls/hr IV .Q24H [facility]; 25 MCG/HR PRN Reason: Protocol Last Admin: 07/31/17 21:07 Dose: 25 mcg/hr, 5.05 mls/hr Ceftriaxone Sodium (Rocephin 1 Gram Ivpb) 1 gm in 100 mls @ 100 mls/hr IVPB DAILY [facility] PRN Reason: Protocol Last Admin: 08/01/17 10:49 Dose: 100 mls/hr Potassium Chloride 20 meq/ (Dextrose) 1,010 mls @ 60 mls/hr IV .[id number] [facility] Insulin Human Regular (Humulin R Low) 0 units SC ACHS [facility] PRN Reason: Protocol Last Admin: 08/01/17 17:09 Dose: Not Given Lactulose (Enulose) 20 gm PO BID [facility] Last Admin: 07/29/17 22:15 Dose: Not Given Lidocaine (Lidoderm) 1 ea TD DAILY [facility] Last Admin: 08/01/17 10:48 Dose: 1 ea Ondansetron HCl (Zofran Inj) 4 mg IVP Q6H PRN PRN Reason: Nausea/Vomiting Last Admin: 07/29/17 21:15 Dose: 4 mg Rifaximin (Xifaxan) 550 mg PO BID [facility] PRN Reason: Protocol Last Admin: 07/29/17 20:29 Dose: Not Given Spironolactone (Aldactone) 25 mg PO BID [facility] Last Admin: 07/23/17 10:51 Dose: 25 mg Thiamine HCl (Vitamin B1 Inj) 100 mg IM BID [facility] Last Admin: 08/01/17 10:49 Dose: 100 mg - Labs Labs: 08/01/17 05:00 08/01/17 06:23 PT 19.6 Seconds (9.9-11.8) H 07/29/17 18:05 INR 1.81 (0.93-1.08) H 07/29/17 18:05 APTT 32.1 Seconds (23.7-30.8) H 07/29/17 18:05 - Constitutional Appears: No Acute Distress, Chronically Ill - Head Exam Head Exam: ATRAUMATIC, NORMOCEPHALIC - Eye Exam Eye Exam: EOMI, Scleral icterus - ENT Exam ENT Exam: Mucous Membranes Moist - Neck Exam Neck Exam: Full ROM - Respiratory Exam Respiratory Exam: NORMAL BREATHING PATTERN. absent: Accessory Muscle Use, Respiratory Distress - GI/Abdominal Exam GI & Abdominal Exam: Distended, Soft. absent: Firm, Guarding, Rigid, Tenderness , Rebound - Extremities Exam Extremities Exam: absent: Calf Tenderness, Pedal Edema - Neurological Exam Neurological Exam: Alert, Awake. absent: Oriented x3 Assessment and Plan - Assessment and Plan (Free Text) Assessment: 56M with: -Metastatic pancreatic cancer With involvement of superior mesenteric vein, Blocked metal stent due to tumor growth -DVT, GI bleeding, Cirrhosis with the gastric and esophageal varices -recommend heparin over lovenox -recommend vascular consult for IVC filter placement -Poor prognosis -Consider palliative care -d/w attending Etta PGY3 <Harjeet Guerrero V - Last Filed: 08/01/17 23:49> Objective - Vital Signs/Intake and Output Vital Signs (last 24 hours): Temp Pulse Resp BP Pulse Ox 99.0 F 84 20 120/56 L 92 L 08/01/17 16:00 08/01/17 18:00 08/01/17 16:00 08/01/17 16:00 08/01/17 16:00 Intake and Output: 08/01/17 08/02/17 18:59 06:59 Intake Total 252.5 0 Output Total 600 Balance 252.5 -600 - Medications Medications: Current Medications Collagenase (Santyl) 1 gm TOP DAILY [facility] Last Admin: 08/01/17 10:49 Dose: 1 applic Enoxaparin Sodium (Lovenox) 30 mg SC DAILY [facility] PRN Reason: Protocol Last Admin: 08/01/17 10:48 Dose: 30 mg Phenytoin 150 mg/ Sodium (Chloride) 53 mls @ 104 mls/hr IVPB 0600,1800 [facility] Last Admin: 08/01/17 18:28 Dose: 104 mls/hr Pantoprazole Sodium (Protonix 40mg Ivpb) 40 mg in 100 mls @ 20 mls/hr IVPB .Q5H [facility] Last Admin: 08/01/17 06:08 Dose: 20 mls/hr Octreotide Acetate 1,250 mcg/ (Sodium Chloride) 252.5 mls @ 5.05 mls/hr IV .Q24H [facility]; 25 MCG/HR PRN Reason: Protocol Last Admin: 08/01/17 18:26 Dose: 25 mcg/hr, 5.05 mls/hr Ceftriaxone Sodium (Rocephin 1 Gram Ivpb) 1 gm in 100 mls @ 100 mls/hr IVPB DAILY [facility] PRN Reason: Protocol Last Admin: 08/01/17 10:49 Dose: 100 mls/hr Potassium Chloride 20 meq/ (Dextrose) 1,010 mls @ 60 mls/hr IV .[id number] [facility] Last Admin: 08/01/17 14:00 Dose: 60 mls/hr Insulin Human Regular (Humulin R Low) 0 units SC ACHS [facility] PRN Reason: Protocol Last Admin: 08/01/17 22:47 Dose: Not Given Lactulose (Enulose) 20 gm PO BID [facility] Last Admin: 07/29/17 22:15 Dose: Not Given Lidocaine (Lidoderm) 1 ea TD DAILY [facility] Last Admin: 08/01/17 10:48 Dose: 1 ea Ondansetron HCl (Zofran Inj) 4 mg IVP Q6H PRN PRN Reason: Nausea/Vomiting Last Admin: 07/29/17 21:15 Dose: 4 mg Rifaximin (Xifaxan) 550 mg PO BID [facility] PRN Reason: Protocol Last Admin: 07/29/17 20:29 Dose: Not Given Spironolactone (Aldactone) 25 mg PO BID [facility] Last Admin: 07/23/17 10:51 Dose: 25 mg Thiamine HCl (Vitamin B1 Inj) 100 mg IM BID [facility] Last Admin: 08/01/17 18:29 Dose: 100 mg - Labs Labs: 08/01/17 05:00 08/01/17 06:23 PT 19.6 Seconds (9.9-11.8) H 07/29/17 18:05 INR 1.81 (0.93-1.08) H 07/29/17 18:05 APTT 32.1 Seconds (23.7-30.8) H 07/29/17 18:05 Attending/Attestation - Attestation I have personally seen and examined this patient.: Yes I have fully participated in the care of the patient.: Yes I have reviewed all pertinent clinical information, including history, physical exam and plan: Yes Notes (Text): This is an addendum to GI progress report dictated by Resident.The patient was seen and examined earlier. Medical records, lab studies, imagings were reviewed. Last 24 hours events reviewed. Agreed with the above treatment plan as outlined in Resident's notes the with the addition of the following 08/01/17 21:49
--- NOTE | 2017-08-01 19:02 | RAD ---
PROCEDURE: ERCP HISTORY: ? CBD OBST. / STENT INSERTION COMPARISON: 07/28/2017 TECHNIQUE: Standard protocol for this study/examination. FINDINGS: Total fluoroscopic time (continuous mode) utilized during the procedure: 365.2 seconds IMPRESSION: Submitted images from the current procedure: 6.0. Less than 1 hr fluoroscopic time utilized during performance of the procedure.
--- NOTE | 2017-08-01 23:59 | CP.PCM.PN ---
Subjective - Date & Time of Evaluation Date of Evaluation: 08/01/17 Time of Evaluation: 12:00 - Subjective Subjective: Patient still NPO; no diarrhea reported; Objective - Vital Signs/Intake and Output Vital Signs (last 24 hours): Temp Pulse Resp BP Pulse Ox 99.0 F 84 20 120/56 L 92 L 08/01/17 16:00 08/01/17 18:00 08/01/17 16:00 08/01/17 16:00 08/01/17 16:00 Intake and Output: 08/01/17 08/02/17 18:59 06:59 Intake Total 252.5 0 Output Total 600 Balance 252.5 -600 - Medications Medications: Current Medications Collagenase (Santyl) 1 gm TOP DAILY [facility] Last Admin: 08/01/17 10:49 Dose: 1 applic Enoxaparin Sodium (Lovenox) 30 mg SC DAILY [facility] PRN Reason: Protocol Last Admin: 08/01/17 10:48 Dose: 30 mg Phenytoin 150 mg/ Sodium (Chloride) 53 mls @ 104 mls/hr IVPB 0600,1800 [facility] Last Admin: 08/01/17 18:28 Dose: 104 mls/hr Pantoprazole Sodium (Protonix 40mg Ivpb) 40 mg in 100 mls @ 20 mls/hr IVPB .Q5H [facility] Last Admin: 08/01/17 06:08 Dose: 20 mls/hr Octreotide Acetate 1,250 mcg/ (Sodium Chloride) 252.5 mls @ 5.05 mls/hr IV .Q24H [facility]; 25 MCG/HR PRN Reason: Protocol Last Admin: 08/01/17 18:26 Dose: 25 mcg/hr, 5.05 mls/hr Ceftriaxone Sodium (Rocephin 1 Gram Ivpb) 1 gm in 100 mls @ 100 mls/hr IVPB DAILY [facility] PRN Reason: Protocol Last Admin: 08/01/17 10:49 Dose: 100 mls/hr Potassium Chloride 20 meq/ (Dextrose) 1,010 mls @ 60 mls/hr IV .[id number] [facility] Last Admin: 08/01/17 14:00 Dose: 60 mls/hr Insulin Human Regular (Humulin R Low) 0 units SC ACHS [facility] PRN Reason: Protocol Last Admin: 08/01/17 22:47 Dose: Not Given Lactulose (Enulose) 20 gm PO BID [facility] Last Admin: 07/29/17 22:15 Dose: Not Given Lidocaine (Lidoderm) 1 ea TD DAILY [facility] Last Admin: 08/01/17 10:48 Dose: 1 ea Ondansetron HCl (Zofran Inj) 4 mg IVP Q6H PRN PRN Reason: Nausea/Vomiting Last Admin: 07/29/17 21:15 Dose: 4 mg Rifaximin (Xifaxan) 550 mg PO BID [facility] PRN Reason: Protocol Last Admin: 07/29/17 20:29 Dose: Not Given Spironolactone (Aldactone) 25 mg PO BID [facility] Last Admin: 07/23/17 10:51 Dose: 25 mg Thiamine HCl (Vitamin B1 Inj) 100 mg IM BID [facility] Last Admin: 08/01/17 18:29 Dose: 100 mg - Labs Labs: 08/01/17 05:00 08/01/17 06:23 PT 19.6 Seconds (9.9-11.8) H 07/29/17 18:05 INR 1.81 (0.93-1.08) H 07/29/17 18:05 APTT 32.1 Seconds (23.7-30.8) H 07/29/17 18:05 - Constitutional Appears: Non-toxic, No Acute Distress - Head Exam Head Exam: NORMAL INSPECTION - Eye Exam Eye Exam: Scleral icterus - ENT Exam ENT Exam: Mucous Membranes Moist - Respiratory Exam Respiratory Exam: absent: Respiratory Distress Additional comments: R sided rales; - Cardiovascular Exam Cardiovascular Exam: REGULAR RHYTHM, +S1, +S2 - GI/Abdominal Exam GI & Abdominal Exam: Distended, Soft - Extremities Exam Additional comments: moderately edematous; - Neurological Exam Neurological Exam: Alert, Awake - Psychiatric Exam Psychiatric exam: absent: Agitated - Skin Skin Exam: Normal Color, Warm. absent: Cyanosis Assessment and Plan (1) ANA MARIA (acute kidney injury) Status: Resolved (2) Hypernatremia Status: Resolved (3) Hypokalemia Assessment & Plan: Mild, getting KCl 10 meq x 2 today; continue to monitor daily; Status: Acute (4) Hypotension Assessment & Plan: improved; continue gentle IVF (switching NS to D5NS at 60 cc/hr in setting of being NPO); Status: Acute (5) SIRS (systemic inflammatory response syndrome) Status: Acute (6) Hypophosphatemia Status: Resolved (7) Hematemesis Status: Acute
--- NOTE | 2017-08-02 02:47 | PN ---
SUBJECTIVE: The patient is a 56-year-old male. The patient is seen and examined on the bedside, looking comfortable. As per the patient, surgical team came and removed his NG tube and he is feeling hungry. I started him on clear liquid diet. No other event overnight noted. The patient's nurse speaks Portuguese and she did translation for me. No headache. No dizziness. No swelling of the leg. No chest pain. No palpitation. PHYSICAL EXAMINATION: VITAL SIGNS: Temperature 99, pulse 59, respiratory rate 20, blood pressure 120/56, pulse oximetry 92%. HEENT: Head is normocephalic and atraumatic. Eyes: PERRLA. Extraocular muscles intact. Conjunctivae clear. Nose patent. Mucous membrane moist. NECK: Supple. No carotid bruits, JVD, or thyromegaly. CHEST: Bilaterally symmetrical. HEART: S1 and S2 positive. LUNGS: Clear to auscultation. ABDOMEN: Soft. Bowel sounds positive. No organomegaly. EXTREMITIES: No edema. No cyanosis. NEUROLOGIC: The patient is awake and alert. Moving all 4 extremities. No focal deficit. MEDICATIONS: Lovenox, chloride, Protonix, Rocephin, dextrose, Zofran. LABORATORY DATA: White blood cells 14.4, hemoglobin 9.7, hematocrit 29.3, and platelets 171. Sodium 141, potassium 3.5, BUN 5, creatinine 0.3, and glucose 117. Bilirubin 7.4. ASSESSMENT AND PLAN: The patient is a 56-year-old male with hypokalemia, diabetes mellitus, hypocalcemia, abnormal liver function test, leukocytosis, anemia, is seen by gastroenterology surgical team. The patient has metastatic pancreatic cancer with involvement of superior mesenteric vein, blocked metal stent due to tumor growth, cirrhosis of the liver, gastritis, esophageal varices. Recommended heparin over Lovenox as per Dr. Carrington. Recommending a vascular consult for inferior vena cava filter placement. Poor prognosis. Ethics Committee gave decision of do not resuscitate/do no intubate. Gastrointestinal and deep venous thrombosis prophylaxis. Repeat labs. Michelle Castillo MD
[2017-08-02] MEDS: SODIUM CHLORIDE 0.9% IVPB SCH ×2 (06:31→18:25)
[2017-08-02] MEDS: PHENYTOIN IVPB SCH ×2 (06:31→18:25)
[2017-08-02 07:06] LABS: BASO # 0.01 K/mm3 (0.0-2.0); BASO % 0.1 % (0.0-3.0); EOS # 0.1 (0.0-0.7); EOS % 0.8 % (1.5-5.0); GRAN # 12.15 (1.4-6.5); GRAN % 91.2 % (50.0-68.0); HEMATOCRIT 28.6 % (42.0-52.0); LYMPH # 0.4 (1.2-3.4); LYMPH % 2.9 % (22.0-35.0); MEAN CELL VOLUME 87.2 fl (80.0-105.0); MEAN CORPUSCULAR HGB CONC 33.2 g/dl (31.0-37.0); MEAN PLATELET VOLUME 9.3 fl (7.0-11.0); MONO # 0.7 (0.1-0.6); RED CELL DISTRIBUTION WIDTH 22.1 % (11.5-14.5); WHITE BLOOD COUNT 13.3 10^3/ul (4.5-11.0)
[2017-08-02 07:27] LABS: ALB/GLOB RATIO 0.8 (1.1-1.8); ALKALINE PHOSPHATASE 751 U/L (38-126); ALT/SGPT 23 U/L (7-56); AST/SGOT 46 U/L (17-59); BILIRUBIN,TOTAL 7.3 mg/dL (0.2-1.3); BLOOD UREA NITROGEN 4 mg/dL (7-21); CALCIUM 7.3 mg/dL (8.4-10.5); CARBON DIOXIDE 27 mmol/L (21-33); CHLORIDE 103 mmol/L (98-107); GFR AFRICAN-AMERICAN > 60; GLUCOSE,RANDOM 141 mg/dL (70-110); POTASSIUM 3.3 mmol/L (3.6-5.0); SODIUM 139 mmol/L (132-148); TOTAL PROTEIN 4.9 g/dL (5.8-8.3)
[2017-08-02] MEDS: Insulin Reg-LOW-Coverage SC SCH ×5 (08:25→22:34)
--- NOTE | 2017-08-02 09:37 | CP.PCM.PN ---
Subjective - Date & Time of Evaluation Date of Evaluation: 08/02/17 Time of Evaluation: 09:35 - Subjective Subjective: Heme/Onc progress note for Dr. Finch's service No acute overnight events or new complaints reported. Palliative is on board and recommendations are being sent to the patient's state appointed guardian. Objective - Vital Signs/Intake and Output Vital Signs (last 24 hours): Temp Pulse Resp BP Pulse Ox 99.0 F 80 20 160/68 H 92 L 08/02/17 06:00 08/02/17 06:00 08/02/17 06:00 08/02/17 06:00 08/01/17 16:00 Intake and Output: 08/02/17 08/02/17 06:59 18:59 Intake Total 0 Output Total 600 Balance -600 - Medications Medications: Current Medications Collagenase (Santyl) 1 gm TOP DAILY [facility] Last Admin: 08/01/17 10:49 Dose: 1 applic Enoxaparin Sodium (Lovenox) 30 mg SC DAILY [facility] PRN Reason: Protocol Last Admin: 08/01/17 10:48 Dose: 30 mg Phenytoin 150 mg/ Sodium (Chloride) 53 mls @ 104 mls/hr IVPB 0600,1800 [facility] Last Admin: 08/02/17 06:31 Dose: 104 mls/hr Pantoprazole Sodium (Protonix 40mg Ivpb) 40 mg in 100 mls @ 20 mls/hr IVPB .Q5H [facility] Last Admin: 08/01/17 06:08 Dose: 20 mls/hr Octreotide Acetate 1,250 mcg/ (Sodium Chloride) 252.5 mls @ 5.05 mls/hr IV .Q24H [facility]; 25 MCG/HR PRN Reason: Protocol Last Admin: 08/01/17 18:26 Dose: 25 mcg/hr, 5.05 mls/hr Ceftriaxone Sodium (Rocephin 1 Gram Ivpb) 1 gm in 100 mls @ 100 mls/hr IVPB DAILY [facility] PRN Reason: Protocol Last Admin: 08/01/17 10:49 Dose: 100 mls/hr Potassium Chloride 40 meq/ (Dextrose/Sodium Chloride) 1,020 mls @ 60 mls/hr IV .Q17H [facility] Potassium Chloride (Potassium Chloride 10 Meq/100 Ml) 10 meq in 100 mls @ 100 mls/hr IVPB Q2H [facility] Stop: 08/02/17 11:44 Insulin Human Regular (Humulin R Low) 0 units SC ACHS [facility] PRN Reason: Protocol Last Admin: 08/02/17 08:25 Dose: 1 units Lactulose (Enulose) 20 gm PO BID [facility] Last Admin: 07/29/17 22:15 Dose: Not Given Lidocaine (Lidoderm) 1 ea TD DAILY [facility] Last Admin: 08/01/17 10:48 Dose: 1 ea Ondansetron HCl (Zofran Inj) 4 mg IVP Q6H PRN PRN Reason: Nausea/Vomiting Last Admin: 07/29/17 21:15 Dose: 4 mg Rifaximin (Xifaxan) 550 mg PO BID [facility] PRN Reason: Protocol Last Admin: 07/29/17 20:29 Dose: Not Given Thiamine HCl (Vitamin B1 Inj) 100 mg IM BID [facility] Last Admin: 08/01/17 18:29 Dose: 100 mg - Labs Labs: 08/02/17 06:40 08/02/17 06:40 PT 19.6 Seconds (9.9-11.8) H 07/29/17 18:05 INR 1.81 (0.93-1.08) H 07/29/17 18:05 APTT 32.1 Seconds (23.7-30.8) H 07/29/17 18:05 - Constitutional Appears: No Acute Distress - Head Exam Head Exam: ATRAUMATIC, NORMAL INSPECTION, NORMOCEPHALIC - Eye Exam Eye Exam: EOMI, PERRL - ENT Exam ENT Exam: Mucous Membranes Moist - Neck Exam Neck Exam: Normal Inspection - Respiratory Exam Respiratory Exam: Clear to Ausculation Bilateral. absent: Rales, Rhonchi, Wheezes - Cardiovascular Exam Cardiovascular Exam: +S1, +S2. absent: Gallop, Murmur - GI/Abdominal Exam GI & Abdominal Exam: Soft. absent: Distended, Firm, Guarding, Rigid, Tenderness , Rebound - Extremities Exam Extremities Exam: absent: Calf Tenderness, Tenderness - Neurological Exam Neurological Exam: Alert, Awake - Psychiatric Exam Psychiatric exam: Normal Affect, Normal Mood - Skin Skin Exam: Dry, Intact, Normal Color, Warm Assessment and Plan - Assessment and Plan (Free Text) Plan: 56yo male with history of dementia, schizophrenia, seizure disorder, neurosyphilis, stave IV pancreatic ca s/p carbo/gemzar admitted for sepsis secondary to obstructed CBD/biliary stricture 1. Stage IV pancreatic cancer -Patient is s/p chemotherapy treatment with carbo/gemzar -At this time, due to his poor performance status further chemotherapy is not recommended -Patient underwent evaluation by ethics committee for hospice care and will be reaching out to his state appointed guardian -Recommend hospice care for Mr. Saha given his poor prognosis and limited treatment options -Palliative consult 2. CBD obstruction -Patient is s/p ERCP by GI (Dr. Guerrero) and was found to have a obstructed CBD stent and biliary stricture -Recommend follow up with GI recommendations Patient seen and case discussed with attending, Dr. Finch
[2017-08-02] MEDS: Pantoprazole 40mg/100ml IVPB 40 MG/100 ML BAG IVPB SCH ×3 (09:41→22:37)
[2017-08-02] MEDS: Thiamine 100 mg/ml Inj IM SCH ×2 (09:46→18:59)
[2017-08-02] MEDS: Lidocaine 5% Patch TD SCH (09:47)
[2017-08-02] MEDS: Enoxaparin 30 mg Syringe SC SCH (09:48)
[2017-08-02] MEDS: cefTRIAXone 1 gm 1 GM/100 ML BAG IVPB SCH (09:48)
[2017-08-02] MEDS: Collagenase 250 Units/gm Ointment(30 gm) TOP SCH (09:50)
--- NOTE | 2017-08-02 09:59 | CP.PCM.PN ---
<Tate Quiles - Last Filed: 08/02/17 10:00> Subjective - Date & Time of Evaluation Date of Evaluation: 08/02/17 Time of Evaluation: 09:58 - Subjective Subjective: GI: Dr. Guerrero Pt seen and examined. Per nursing no acute events overnight. Pt denies N/V. No BM per nursing. Objective - Vital Signs/Intake and Output Vital Signs (last 24 hours): Temp Pulse Resp BP Pulse Ox 99.0 F 80 20 160/68 H 92 L 08/02/17 06:00 08/02/17 06:00 08/02/17 06:00 08/02/17 06:00 08/01/17 16:00 Intake and Output: 08/02/17 08/02/17 06:59 18:59 Intake Total 0 Output Total 600 Balance -600 - Medications Medications: Current Medications Collagenase (Santyl) 1 gm TOP DAILY [facility] Last Admin: 08/01/17 10:49 Dose: 1 applic Enoxaparin Sodium (Lovenox) 30 mg SC DAILY [facility] PRN Reason: Protocol Last Admin: 08/01/17 10:48 Dose: 30 mg Phenytoin 150 mg/ Sodium (Chloride) 53 mls @ 104 mls/hr IVPB 0600,1800 [facility] Last Admin: 08/02/17 06:31 Dose: 104 mls/hr Pantoprazole Sodium (Protonix 40mg Ivpb) 40 mg in 100 mls @ 20 mls/hr IVPB .Q5H [facility] Last Admin: 08/01/17 06:08 Dose: 20 mls/hr Octreotide Acetate 1,250 mcg/ (Sodium Chloride) 252.5 mls @ 5.05 mls/hr IV .Q24H [facility]; 25 MCG/HR PRN Reason: Protocol Last Admin: 08/01/17 18:26 Dose: 25 mcg/hr, 5.05 mls/hr Ceftriaxone Sodium (Rocephin 1 Gram Ivpb) 1 gm in 100 mls @ 100 mls/hr IVPB DAILY [facility] PRN Reason: Protocol Last Admin: 08/01/17 10:49 Dose: 100 mls/hr Potassium Chloride 40 meq/ (Dextrose/Sodium Chloride) 1,020 mls @ 60 mls/hr IV .Q17H [facility] Potassium Chloride (Potassium Chloride 10 Meq/100 Ml) 10 meq in 100 mls @ 100 mls/hr IVPB Q2H [facility] Stop: 08/02/17 11:44 Insulin Human Regular (Humulin R Low) 0 units SC ACHS [facility] PRN Reason: Protocol Last Admin: 08/02/17 08:25 Dose: 1 units Lactulose (Enulose) 20 gm PO BID [facility] Last Admin: 07/29/17 22:15 Dose: Not Given Lidocaine (Lidoderm) 1 ea TD DAILY [facility] Last Admin: 08/01/17 10:48 Dose: 1 ea Ondansetron HCl (Zofran Inj) 4 mg IVP Q6H PRN PRN Reason: Nausea/Vomiting Last Admin: 07/29/17 21:15 Dose: 4 mg Rifaximin (Xifaxan) 550 mg PO BID [facility] PRN Reason: Protocol Last Admin: 07/29/17 20:29 Dose: Not Given Thiamine HCl (Vitamin B1 Inj) 100 mg IM BID [facility] Last Admin: 08/01/17 18:29 Dose: 100 mg - Labs Labs: 08/02/17 06:40 08/02/17 06:40 PT 19.6 Seconds (9.9-11.8) H 07/29/17 18:05 INR 1.81 (0.93-1.08) H 07/29/17 18:05 APTT 32.1 Seconds (23.7-30.8) H 07/29/17 18:05 - Constitutional Appears: Non-toxic, Chronically Ill - Head Exam Head Exam: ATRAUMATIC, NORMOCEPHALIC - Eye Exam Eye Exam: EOMI, Scleral icterus - ENT Exam ENT Exam: Mucous Membranes Moist, Normal External Ear Exam - Neck Exam Neck Exam: Full ROM - Respiratory Exam Respiratory Exam: NORMAL BREATHING PATTERN. absent: Accessory Muscle Use, Respiratory Distress - GI/Abdominal Exam GI & Abdominal Exam: Distended, Soft. 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 -recommend heparin over lovenox -recommend vascular consult for IVC filter placement -Poor prognosis, consider palliative care -Awaiting recommendations from ethics committee -d/w attending Etta PGY3 <Harjeet Guerrero V - Last Filed: 08/02/17 23:45> Objective - Vital Signs/Intake and Output Vital Signs (last 24 hours): Temp Pulse Resp BP Pulse Ox 98.6 F 77 20 138/69 96 08/02/17 17:01 08/02/17 17:01 08/02/17 17:01 08/02/17 17:01 08/02/17 17:01 Intake and Output: 08/02/17 08/03/17 18:59 06:59 Intake Total 792.5 Output Total 600 Balance 192.5 - Medications Medications: Current Medications Collagenase (Santyl) 1 gm TOP DAILY [facility] Last Admin: 08/02/17 09:50 Dose: 1 applic Enoxaparin Sodium (Lovenox) 30 mg SC DAILY [facility] PRN Reason: Protocol Last Admin: 08/02/17 09:48 Dose: 30 mg Phenytoin 150 mg/ Sodium (Chloride) 53 mls @ 104 mls/hr IVPB 0600,1800 [facility] Last Admin: 08/02/17 18:25 Dose: 104 mls/hr Pantoprazole Sodium (Protonix 40mg Ivpb) 40 mg in 100 mls @ 20 mls/hr IVPB .Q5H [facility] Last Admin: 08/02/17 22:37 Dose: 20 mls/hr Octreotide Acetate 1,250 mcg/ (Sodium Chloride) 252.5 mls @ 5.05 mls/hr IV .Q24H [facility]; 25 MCG/HR PRN Reason: Protocol Last Admin: 08/02/17 19:56 Dose: 25 mcg/hr, 5.05 mls/hr Ceftriaxone Sodium (Rocephin 1 Gram Ivpb) 1 gm in 100 mls @ 100 mls/hr IVPB DAILY [facility] PRN Reason: Protocol Last Admin: 08/02/17 09:48 Dose: 100 mls/hr Potassium Chloride 40 meq/ (Dextrose/Sodium Chloride) 1,020 mls @ 60 mls/hr IV .Q17H [facility] Last Admin: 08/02/17 12:39 Dose: 60 mls/hr Insulin Human Regular (Humulin R Low) 0 units SC ACHS [facility] PRN Reason: Protocol Last Admin: 08/02/17 22:34 Dose: Not Given Lactulose (Enulose) 20 gm PO BID [facility] Last Admin: 07/29/17 22:15 Dose: Not Given Lidocaine (Lidoderm) 1 ea TD DAILY [facility] Last Admin: 08/02/17 09:47 Dose: 1 ea Ondansetron HCl (Zofran Inj) 4 mg IVP Q6H PRN PRN Reason: Nausea/Vomiting Last Admin: 07/29/17 21:15 Dose: 4 mg Rifaximin (Xifaxan) 550 mg PO BID [facility] PRN Reason: Protocol Last Admin: 07/29/17 20:29 Dose: Not Given Thiamine HCl (Vitamin B1 Inj) 100 mg IM BID [facility] Last Admin: 08/02/17 18:59 Dose: 100 mg - Labs Labs: 08/02/17 06:40 08/02/17 06:40 PT 19.6 Seconds (9.9-11.8) H 07/29/17 18:05 INR 1.81 (0.93-1.08) H 07/29/17 18:05 APTT 32.1 Seconds (23.7-30.8) H 07/29/17 18:05 Attending/Attestation - Attestation I have personally seen and examined this patient.: Yes I have fully participated in the care of the patient.: Yes I have reviewed all pertinent clinical information, including history, physical exam and plan: Yes Notes (Text): This is an addendum to GI progress report dictated by Resident.The patient was seen and examined earlier. Medical records, lab studies, imagings were reviewed. Last 24 hours events reviewed. Agreed with the above treatment plan as outlined in Resident's notes the with the addition of the following ETHIC COMMITTE NOTE REVIEWED POOR PROGNOSIS SUPPORTIVE CARE POA TO BE INVOLVED WILL NADER PCP
--- NOTE | 2017-08-02 10:34 | CP.PCM.PN ---
Subjective - Date & Time of Evaluation Date of Evaluation: 08/02/17 Time of Evaluation: 09:50 - Subjective Subjective: Comfortable in bed, afebrile, not in distress. Objective - Vital Signs/Intake and Output Vital Signs (last 24 hours): Temp Pulse Resp BP Pulse Ox 99.0 F 84 20 120/56 L 92 L 08/01/17 16:00 08/01/17 18:00 08/01/17 16:00 08/01/17 16:00 08/01/17 16:00 Intake and Output: 08/01/17 08/02/17 18:59 06:59 Intake Total 252.5 0 Output Total 600 Balance 252.5 -600 - Medications Medications: Current Medications Collagenase (Santyl) 1 gm TOP DAILY [facility] Last Admin: 08/01/17 10:49 Dose: 1 applic Enoxaparin Sodium (Lovenox) 30 mg SC DAILY [facility] PRN Reason: Protocol Last Admin: 08/01/17 10:48 Dose: 30 mg Phenytoin 150 mg/ Sodium (Chloride) 53 mls @ 104 mls/hr IVPB 0600,1800 [facility] Last Admin: 08/02/17 06:31 Dose: 104 mls/hr Pantoprazole Sodium (Protonix 40mg Ivpb) 40 mg in 100 mls @ 20 mls/hr IVPB .Q5H [facility] Last Admin: 08/01/17 06:08 Dose: 20 mls/hr Octreotide Acetate 1,250 mcg/ (Sodium Chloride) 252.5 mls @ 5.05 mls/hr IV .Q24H [facility]; 25 MCG/HR PRN Reason: Protocol Last Admin: 08/01/17 18:26 Dose: 25 mcg/hr, 5.05 mls/hr Ceftriaxone Sodium (Rocephin 1 Gram Ivpb) 1 gm in 100 mls @ 100 mls/hr IVPB DAILY [facility] PRN Reason: Protocol Last Admin: 08/01/17 10:49 Dose: 100 mls/hr Potassium Chloride 20 meq/ (Dextrose) 1,010 mls @ 60 mls/hr IV .[id number] [facility] Last Admin: 08/01/17 14:00 Dose: 60 mls/hr Insulin Human Regular (Humulin R Low) 0 units SC ACHS [facility] PRN Reason: Protocol Last Admin: 08/01/17 22:47 Dose: Not Given Lactulose (Enulose) 20 gm PO BID [facility] Last Admin: 07/29/17 22:15 Dose: Not Given Lidocaine (Lidoderm) 1 ea TD DAILY [facility] Last Admin: 08/01/17 10:48 Dose: 1 ea Ondansetron HCl (Zofran Inj) 4 mg IVP Q6H PRN PRN Reason: Nausea/Vomiting Last Admin: 07/29/17 21:15 Dose: 4 mg Rifaximin (Xifaxan) 550 mg PO BID [facility] PRN Reason: Protocol Last Admin: 07/29/17 20:29 Dose: Not Given Spironolactone (Aldactone) 25 mg PO BID [facility] Last Admin: 07/23/17 10:51 Dose: 25 mg Thiamine HCl (Vitamin B1 Inj) 100 mg IM BID [facility] Last Admin: 08/01/17 18:29 Dose: 100 mg - Labs Labs: 08/01/17 05:00 08/01/17 06:23 PT 19.6 Seconds (9.9-11.8) H 07/29/17 18:05 INR 1.81 (0.93-1.08) H 07/29/17 18:05 APTT 32.1 Seconds (23.7-30.8) H 07/29/17 18:05 - Constitutional Appears: Non-toxic, No Acute Distress - ENT Exam ENT Exam: Mucous Membranes Moist - Neck Exam Neck Exam: absent: Meningismus - Respiratory Exam Respiratory Exam: Decreased Breath Sounds - Cardiovascular Exam Cardiovascular Exam: +S1, +S2 - GI/Abdominal Exam GI & Abdominal Exam: Soft. absent: Tenderness Assessment and Plan - Assessment and Plan (Free Text) Plan: Assessment S/P Systemic Inflammatory Response Syndrome, with no evidence of new onset sepsis acute encephalopathy probably due to hepatic encephalopathy pancreatic cancer with liver metastases S/P chemotherapy and radiation Esophageal varices HTN DM dementia history of neurosyphilis seizure disorder asthma schizophrenia Plan repeat blood cx, urine cx are negative; stool for C. diff. is negative; repeat CXR does not show infiltrates will continue to monitor off antibiotics since he is at risk for healthcare- associated infections
--- NOTE | 2017-08-02 12:19 | CP.PCM.PN ---
Subjective - Date & Time of Evaluation Date of Evaluation: 07/31/17 (Ethics Note ) Time of Evaluation: 12:00 - Subjective Subjective: Date of Consultation: 07/31/2017 Administrative Conference Room Present: GABRIEL Alvraez RN Victor Adaniel, MD Bishop Gregory Cook Rita Poss-Brant, RN Irfana Kahn, MD Cathleen Shull-Fernald, YULISSA Mariee, YULISSA Vazquez, MD Chencho Farr MD Described the facts of the case: 56 YO male admitted via ED 07/11/2017 with altered mental status and lethargy. Patient is a resident at an area assisted. History of pancreatic cancer with metastasis, treated with chemotherapy and radiation, type 2 diabetes mellitus, obstructive jaundice, hypertension, asthma, seizures, Carmona esophagus, neurosyphilis, and schizophrenia has a biliary stent in place. On admission patient had hepatic encephalopathy treated with lactulose. Sepsis on admission treated with multiple IV antibiotics. Seen by neurology, gastroenterology, infectious disease, intensivists, pulmonologists and hematology/oncologists. When medically stable, 07/21/2017 underwent a paracentesis with removal of 4100 CC of ascetic fluid. Underwent an ERCP 2016 to correct a biliary stricture. Despite aggressive treatment patients condition has deteriorated. Received 2 units packed red blood cells, 1 unit fresh frozen plasma for GI bleed. NG tube placed. Name of Attending physician: Dr. Janette Castillo Medical dilemma: The patient does not have an Advance Directive. The patient has a court appointed guardian. Medical staff determined patient has no hope for future improvement, recommend patient be made a DNR/DNI and be placed on hospice. Recommendations of Consult Team: Ethics committee unanimously agreed that there is no medical intervention that can be initiated which would provide any benefit to the patient. The patient has terminal pancreatic cancer and multiple medical comorbidities. Patient requires wound care to a sacral wound which developed due to diarrhea secondary to medication for ammonia level treatment. NG tube connected to intermittent suction, IV for fluid management is intrusive. Medical team feels patient meets criteria for hospice services. Strongly recommend supportive care based only on comfort measures. Hospice services for pain and symptom management. [place] DNR/DNI to allow for natural . Objective - Vital Signs/Intake and Output Vital Signs (last 24 hours): Temp Pulse Resp BP Pulse Ox 99.0 F 80 20 160/68 H 92 L 08/02/17 06:00 08/02/17 06:00 08/02/17 06:00 08/02/17 06:00 08/01/17 16:00 Intake and Output: 08/02/17 08/02/17 06:59 18:59 Intake Total 0 Output Total 600 Balance -600 - Medications Medications: Current Medications Collagenase (Santyl) 1 gm TOP DAILY [facility] Last Admin: 08/02/17 09:50 Dose: 1 applic Enoxaparin Sodium (Lovenox) 30 mg SC DAILY [facility] PRN Reason: Protocol Last Admin: 08/02/17 09:48 Dose: 30 mg Phenytoin 150 mg/ Sodium (Chloride) 53 mls @ 104 mls/hr IVPB 0600,1800 [facility] Last Admin: 08/02/17 06:31 Dose: 104 mls/hr Pantoprazole Sodium (Protonix 40mg Ivpb) 40 mg in 100 mls @ 20 mls/hr IVPB .Q5H [facility] Last Admin: 08/02/17 09:41 Dose: 20 mls/hr Octreotide Acetate 1,250 mcg/ (Sodium Chloride) 252.5 mls @ 5.05 mls/hr IV .Q24H [facility]; 25 MCG/HR PRN Reason: Protocol Last Admin: 08/01/17 18:26 Dose: 25 mcg/hr, 5.05 mls/hr Ceftriaxone Sodium (Rocephin 1 Gram Ivpb) 1 gm in 100 mls @ 100 mls/hr IVPB DAILY [facility] PRN Reason: Protocol Last Admin: 08/02/17 09:48 Dose: 100 mls/hr Potassium Chloride 40 meq/ (Dextrose/Sodium Chloride) 1,020 mls @ 60 mls/hr IV .Q17H [facility] Insulin Human Regular (Humulin R Low) 0 units SC ACHS [facility] PRN Reason: Protocol Last Admin: 08/02/17 12:16 Dose: 2 units Lactulose (Enulose) 20 gm PO BID [facility] Last Admin: 07/29/17 22:15 Dose: Not Given Lidocaine (Lidoderm) 1 ea TD DAILY [facility] Last Admin: 08/02/17 09:47 Dose: 1 ea Ondansetron HCl (Zofran Inj) 4 mg IVP Q6H PRN PRN Reason: Nausea/Vomiting Last Admin: 07/29/17 21:15 Dose: 4 mg Rifaximin (Xifaxan) 550 mg PO BID [facility] PRN Reason: Protocol Last Admin: 07/29/17 20:29 Dose: Not Given Thiamine HCl (Vitamin B1 Inj) 100 mg IM BID [facility] Last Admin: 08/02/17 09:46 Dose: 100 mg - Labs Labs: 08/02/17 06:40 08/02/17 06:40 PT 19.6 Seconds (9.9-11.8) H 07/29/17 18:05 INR 1.81 (0.93-1.08) H 07/29/17 18:05 APTT 32.1 Seconds (23.7-30.8) H 07/29/17 18:05
[2017-08-02] MEDS: Potassium Chloride 40 MEQ in Dextrose 5%/0.9% NS 1,000 ML IV SCH (12:39)
[2017-08-02] MEDS ORDERED: Potassium Chloride 20 mEq ER Tab PO ONE (12:54)
--- NOTE | 2017-08-02 13:42 | PN ---
DATE: 08/02/2017 LOCATION: The patient in room 372, bed 1. REASON FOR CONSULTATION AND FOLLOWUP: Rule out cardiac arrhythmia, pancreatic abscesses carcinoma with metastasis, ascites. SUBJECTIVE: The patient lying flat in bed without any cardiac symptoms like chest pain, shortness of breath, palpitation. PHYSICAL EXAMINATION: VITAL SIGNS: Blood pressure 160/68, yesterday blood pressure 120/56, respirations 20, pulse 80, temperature 99.0. HEENT: Head is normocephalic. Eyes, pupil normal. Conjunctivae slightly pale. NECK: JVP low. Carotid equal. THORAX: AP diameter normal. LUNGS: No rales. CARDIOVASCULAR: S1 and S2. ABDOMEN: Protuberant due to ascites. EXTREMITIES: Has edema on the leg, but no clubbing, no cyanosis. LABORATORY DATA: WBC 13.3, hemoglobin 9.5, hematocrit 28.6, platelets 184. Sodium 139, potassium 3.3, BUN 4, creatinine 0.3. Sugar 215, glucose 141, calcium 7.3. Albumin is also low 2.2. Total protein also low 4.9. AST 46, ALT 23, alkaline phosphatase 751, total bilirubin 7.3. DIAGNOSES: Hypokalemia, carcinoma of the pancreas with metastasis and large ascites, history of paracentesis in the past, status vomiting coffee-ground material in the past. So far no cardiac arrhythmia noted. Hypoproteinemia and malnutrition. PLAN: We will give potassium therapy to the patient. The patient is getting potassium mixed with the IV fluid, but the patient will need extra potassium to bring it to normal. The patient is getting Dilantin 150 mg IV b.i.d., Lovenox 30 mg subcu daily. The patient is getting Sandostatin 1250 mcg IV mixed in the drip and the patient is getting 25 mcg per hour. So the patient is getting Protonix IV, Rocephin 1 g IV daily, thiamine 100 mg b.i.d. We will repeat the SMA-7 in the morning and we will follow with you. Jayme Park MD
[2017-08-02 17:02] VITALS: O2SAT 96
--- NOTE | 2017-08-03 03:29 | PN ---
SUBJECTIVE: The patient is a 56-year-old male. The patient was seen and examined on the bedside, looking comfortable. No NG tube. No headache, no dizziness. No chest pain, no palpitation. No hematuria, no hematochezia. PHYSICAL EXAMINATION VITAL SIGNS: Temperature 99, pulse 64, respiratory rate 20, blood pressure 120/56, pulse oximetry 92. HEENT: Head is normocephalic and atraumatic. Eyes: PERRLA. Extraocular muscles intact. Conjunctivae clear. Nose patent. Mucous membrane moist. NECK: Supple. No carotid bruits. No JVD, no thyromegaly. CHEST: Bilaterally symmetrical. HEART: S1, S2 positive. LUNGS: Clear to auscultation. ABDOMEN: Soft. Bowel sounds present. No organomegaly. EXTREMITIES: No edema. No cyanosis. NEUROLOGICAL: The patient is awake, alert. Moving all 4 extremities. No focal deficits. LABORATORY DATA: White blood cells 14.4, hemoglobin 9.7, hematocrit 29.3, platelets 171. Sodium 141, potassium 3.5, BUN 5, creatinine 0.3, glucose 111. MEDICATIONS: Lovenox, Dilantin, Protonix, octreotide, ceftriaxone, potassium, insulin, lactulose, Lidoderm, Zofran, rifaximin, spironolactone, thiamine. ASSESSMENT AND PLAN: The patient is a 56-year-old male with systemic inflammatory response syndrome. No evidence of new-onset sepsis, acute encephalopathy, probably due to hepatic encephalopathy, pancreatic cancer with liver metastasis, status post chemotherapy, radiation therapy. Has also with this history of vomiting, vomitus has blood; hypertension; diabetes mellitus, uncontrolled; dementia; history of neurosyphilis; history of seizure disorder; asthma; schizophrenia; ascites; history of multiple time paracentesis. Repeat septic workup is negative. ID is monitoring the patient off the antibiotics since the patient is at risk of healthcare-associated infections. The patient is seen by Ellyn Mariscal, is a comfort care nurse. History of altered mental status, history of Carmona esophagus, schizophrenia. The patient has active advance directive, medical staff determined the patient has no hope of future improvement. Recommended the patient to be DNR/DNI and placed on hospice care. agreed, there is no medical intervention that can be initiated which would provide any benefit to the patient. The patient has a mere pancreatic cancer and multiple medical comorbidities. Has sacral wound which developed due to diarrhea secondary to medication for ammonia level treatment. The medical team feels that the patient meets criteria for hospice services. Strongly recommended supportive care based only on comfort measures. Hospice services for the patient and symptomatic management, institute DNR, DNI, to allow the natural . GI and DVT prophylaxis. Repeat labs, we will follow. Michelle Castillo MD MTDD
[2017-08-03] MEDS: Potassium Chloride 40 MEQ in Dextrose 5%/0.9% NS 1,000 ML IV SCH ×2 (03:54→10:00)
--- NOTE | 2017-08-03 03:56 | CP.PCM.PN ---
Subjective - Date & Time of Evaluation Date of Evaluation: 08/02/17 Time of Evaluation: 14:00 - Subjective Subjective: Started back on liquid diet, tolerating well; Objective - Vital Signs/Intake and Output Vital Signs (last 24 hours): Temp Pulse Resp BP Pulse Ox 98.6 F 77 20 138/69 96 08/02/17 17:01 08/02/17 17:01 08/02/17 17:01 08/02/17 17:01 08/02/17 17:01 Intake and Output: 08/02/17 08/03/17 18:59 06:59 Intake Total 792.5 Output Total 600 Balance 192.5 - Medications Medications: Current Medications Collagenase (Santyl) 1 gm TOP DAILY [facility] Last Admin: 08/02/17 09:50 Dose: 1 applic Enoxaparin Sodium (Lovenox) 30 mg SC DAILY [facility] PRN Reason: Protocol Last Admin: 08/02/17 09:48 Dose: 30 mg Phenytoin 150 mg/ Sodium (Chloride) 53 mls @ 104 mls/hr IVPB 0600,1800 [facility] Last Admin: 08/02/17 18:25 Dose: 104 mls/hr Pantoprazole Sodium (Protonix 40mg Ivpb) 40 mg in 100 mls @ 20 mls/hr IVPB .Q5H [facility] Last Admin: 08/02/17 22:37 Dose: 20 mls/hr Octreotide Acetate 1,250 mcg/ (Sodium Chloride) 252.5 mls @ 5.05 mls/hr IV .Q24H [facility]; 25 MCG/HR PRN Reason: Protocol Last Admin: 08/02/17 19:56 Dose: 25 mcg/hr, 5.05 mls/hr Ceftriaxone Sodium (Rocephin 1 Gram Ivpb) 1 gm in 100 mls @ 100 mls/hr IVPB DAILY [facility] PRN Reason: Protocol Last Admin: 08/02/17 09:48 Dose: 100 mls/hr Potassium Chloride 40 meq/ (Dextrose/Sodium Chloride) 1,020 mls @ 60 mls/hr IV .Q17H [facility] Last Admin: 08/02/17 12:39 Dose: 60 mls/hr Insulin Human Regular (Humulin R Low) 0 units SC ACHS [facility] PRN Reason: Protocol Last Admin: 08/02/17 22:34 Dose: Not Given Lactulose (Enulose) 20 gm PO BID [facility] Last Admin: 07/29/17 22:15 Dose: Not Given Lidocaine (Lidoderm) 1 ea TD DAILY [facility] Last Admin: 08/02/17 09:47 Dose: 1 ea Ondansetron HCl (Zofran Inj) 4 mg IVP Q6H PRN PRN Reason: Nausea/Vomiting Last Admin: 07/29/17 21:15 Dose: 4 mg Rifaximin (Xifaxan) 550 mg PO BID [facility] PRN Reason: Protocol Last Admin: 07/29/17 20:29 Dose: Not Given Thiamine HCl (Vitamin B1 Inj) 100 mg IM BID [facility] Last Admin: 08/02/17 18:59 Dose: 100 mg - Labs Labs: 08/02/17 06:40 08/02/17 06:40 PT 19.6 Seconds (9.9-11.8) H 07/29/17 18:05 INR 1.81 (0.93-1.08) H 07/29/17 18:05 APTT 32.1 Seconds (23.7-30.8) H 07/29/17 18:05 - Constitutional Appears: Non-toxic, No Acute Distress - Head Exam Head Exam: NORMAL INSPECTION - ENT Exam ENT Exam: Mucous Membranes Moist - Respiratory Exam Respiratory Exam: absent: Respiratory Distress Additional comments: R sided rales; - Cardiovascular Exam Cardiovascular Exam: REGULAR RHYTHM, +S1, +S2 - GI/Abdominal Exam GI & Abdominal Exam: Distended, Soft. absent: Tenderness - Extremities Exam Additional comments: moderate leg edema; - Neurological Exam Neurological Exam: Alert, Awake - Skin Skin Exam: Normal Color, Warm. absent: Cyanosis Assessment and Plan (1) ANA MARIA (acute kidney injury) Status: Resolved (2) Hypernatremia Status: Resolved (3) Hypokalemia Assessment & Plan: Mild but improved; continue KCl in IVF and replenish prn; Status: Acute (4) Hypotension Assessment & Plan: On D5NS at 60 cc/hr, continue for now; if tolerating diet well, can switch to NS ; Status: Resolved (5) SIRS (systemic inflammatory response syndrome) Status: Acute (6) Hypophosphatemia Status: Resolved (7) Hematemesis Status: Acute
[2017-08-03] MEDS ORDERED: Phenytoin 100 mg/2 ml Inj ONE (05:01)
[2017-08-03] MEDS: SODIUM CHLORIDE 0.9% IVPB SCH ×2 (05:46→19:13)
[2017-08-03] MEDS: PHENYTOIN IVPB SCH ×2 (05:46→19:13)
[2017-08-03] MEDS: Pantoprazole 40mg/100ml IVPB 40 MG/100 ML BAG IVPB SCH ×3 (05:47→10:01)
[2017-08-03 07:17] LABS: BLOOD UREA NITROGEN 3 mg/dL (7-21); CARBON DIOXIDE 28 mmol/L (21-33); CHLORIDE 98 mmol/L (95-110); GFR AFRICAN-AMERICAN > 60; GLUCOSE,RANDOM 146 mg/dL (70-110); MAGNESIUM 1.6 mg/dL (1.7-2.2); PHOSPHOROUS 1.7 mg/dL (2.5-4.5); POTASSIUM 3.2 mmol/L (3.6-5.0); SODIUM 133 mmol/L (132-148)
[2017-08-03 07:42] LABS: CALCIUM 6.9 mg/dL (8.4-10.5)
[2017-08-03] MEDS: Insulin Reg-LOW-Coverage SC SCH ×4 (08:43→22:52)
[2017-08-03] MEDS ORDERED: Magnesium Sulfate 1 gm in D5W 1 GM/100 ML BAG IVPB ONE (09:13)
[2017-08-03] MEDS ORDERED: Potassium Chloride 20 mEq ER Tab PO ONE (09:16)
[2017-08-03] MEDS: Thiamine 100 mg/ml Inj IM SCH ×2 (09:56→19:14)
[2017-08-03] MEDS: Lidocaine 5% Patch TD SCH (09:57)
[2017-08-03] MEDS: Potassium & Sodium Phosphate PO SCH ×3 (09:57→19:14)
[2017-08-03] MEDS: cefTRIAXone 1 gm 1 GM/100 ML BAG IVPB SCH (09:57)
[2017-08-03] MEDS: Enoxaparin 30 mg Syringe SC SCH (09:57)
[2017-08-03] MEDS: Collagenase 250 Units/gm Ointment(30 gm) TOP SCH (10:01)
--- NOTE | 2017-08-03 13:50 | CP.PCM.PN ---
Subjective - Date & Time of Evaluation Date of Evaluation: 08/03/17 Time of Evaluation: 13:00 - Subjective Subjective: Lethargic, offers no complaints Objective - Vital Signs/Intake and Output Vital Signs (last 24 hours): Temp Pulse Resp BP Pulse Ox 99.5 F 82 20 103/69 96 08/03/17 08:57 08/03/17 08:57 08/03/17 08:57 08/03/17 08:57 08/03/17 08:57 Intake and Output: 08/03/17 08/03/17 06:59 18:59 Intake Total 792.5 1499 Output Total 600 500 Balance 192.5 999 - Medications Medications: Current Medications Collagenase (Santyl) 1 gm TOP DAILY [facility] Last Admin: 08/03/17 10:01 Dose: 1 applic Enoxaparin Sodium (Lovenox) 30 mg SC DAILY [facility] PRN Reason: Protocol Last Admin: 08/03/17 09:57 Dose: 30 mg Phenytoin 150 mg/ Sodium (Chloride) 53 mls @ 104 mls/hr IVPB 0600,1800 [facility] Last Admin: 08/03/17 05:46 Dose: 104 mls/hr Pantoprazole Sodium (Protonix 40mg Ivpb) 40 mg in 100 mls @ 20 mls/hr IVPB .Q5H [facility] Last Admin: 08/03/17 10:01 Dose: 20 mls/hr Octreotide Acetate 1,250 mcg/ (Sodium Chloride) 252.5 mls @ 5.05 mls/hr IV .Q24H [facility]; 25 MCG/HR PRN Reason: Protocol Last Admin: 08/02/17 19:56 Dose: 25 mcg/hr, 5.05 mls/hr Ceftriaxone Sodium (Rocephin 1 Gram Ivpb) 1 gm in 100 mls @ 100 mls/hr IVPB DAILY [facility] PRN Reason: Protocol Last Admin: 08/03/17 09:57 Dose: 100 mls/hr Potassium Chloride 40 meq/ (Dextrose/Sodium Chloride) 1,020 mls @ 60 mls/hr IV .Q17H [facility] Last Admin: 08/03/17 10:00 Dose: 60 mls/hr Insulin Human Regular (Humulin R Low) 0 units SC ACHS [facility] PRN Reason: Protocol Last Admin: 08/03/17 11:56 Dose: 2 units Lactulose (Enulose) 20 gm PO BID [facility] Last Admin: 07/29/17 22:15 Dose: Not Given Lidocaine (Lidoderm) 1 ea TD DAILY [facility] Last Admin: 08/03/17 09:57 Dose: 1 ea Ondansetron HCl (Zofran Inj) 4 mg IVP Q6H PRN PRN Reason: Nausea/Vomiting Last Admin: 07/29/17 21:15 Dose: 4 mg Potassium Phos/Sodium Phos (Neutra-Phos) 1 pkt PO TID [facility] Last Admin: 08/03/17 09:57 Dose: 1 pkt Rifaximin (Xifaxan) 550 mg PO BID [facility] PRN Reason: Protocol Last Admin: 07/29/17 20:29 Dose: Not Given Thiamine HCl (Vitamin B1 Inj) 100 mg IM BID [facility] Last Admin: 08/03/17 09:56 Dose: 100 mg - Labs Labs: 08/02/17 06:40 08/03/17 05:45 PT 19.6 Seconds (9.9-11.8) H 07/29/17 18:05 INR 1.81 (0.93-1.08) H 07/29/17 18:05 APTT 32.1 Seconds (23.7-30.8) H 07/29/17 18:05 - Constitutional Appears: Cachectic, Chronically Ill - Eye Exam Eye Exam: PERRL, Scleral icterus - ENT Exam ENT Exam: Mucous Membranes Moist - Respiratory Exam Respiratory Exam: Decreased Breath Sounds, NORMAL BREATHING PATTERN - Cardiovascular Exam Cardiovascular Exam: REGULAR RHYTHM, +S1, +S2 - GI/Abdominal Exam GI & Abdominal Exam: Distended, Soft, Diminished Bowel Sounds - Exam Additional comments: oliguria - Extremities Exam Additional comments: lower extremity edema - Neurological Exam Neurological Exam: Altered - Skin Skin Exam: Dry, Pallor Additional comments: jaundice,unstageable sacral decubiti Assessment and Plan - Assessment and Plan (Free Text) Assessment: 56 year old male with history of metastatic pancreatic cancer, dementia, neurosyphilis, schizophreniawho was admiited with sepsis, SIRS, jaundice, GI bleed, ascites, anemia and thrombocytopenia. The patient is lethargic, bed bound. Appetite poor. Ethics meeting held 07.31.17 Recommendations: Ethics committee unanimously agreed that there is no medical intervention that can be initiated which would provide any benefit to the patient. The patient has terminal pancreatic cancer and multiple medical comorbidities. Medical team feels patient meets criteria for hospice services. Strongly recommend supportive care based only on comfort measures. Hospice services for pain and symptom management. Jay DNR/DNI to allow for natural . The patient's s state appointed guardian received ethics committee recommendations and has agreed to initiate hospice care. Guardian signed hospice agreement and DNR/DNI. Patient to be transferred back to [facility] under [facility] tomorrow. Time spent in advance care panning, 20 minutes Plan: Hospice evaluation POLST: DNR/DNI
--- NOTE | 2017-08-03 13:53 | CP.PCM.PN ---
Subjective - Date & Time of Evaluation Date of Evaluation: 08/03/17 Time of Evaluation: 10:55 - Subjective Subjective: Comfortable, afebrile, not in distress. Objective - Vital Signs/Intake and Output Vital Signs (last 24 hours): Temp Pulse Resp BP Pulse Ox 98.6 F 79 20 138/69 96 08/02/17 17:01 08/03/17 06:00 08/02/17 17:01 08/02/17 17:01 08/02/17 17:01 Intake and Output: 08/03/17 08/03/17 06:59 18:59 Intake Total 792.5 600 Output Total 600 500 Balance 192.5 100 - Medications Medications: Current Medications Collagenase (Santyl) 1 gm TOP DAILY [facility] Last Admin: 08/02/17 09:50 Dose: 1 applic Enoxaparin Sodium (Lovenox) 30 mg SC DAILY [facility] PRN Reason: Protocol Last Admin: 08/02/17 09:48 Dose: 30 mg Phenytoin 150 mg/ Sodium (Chloride) 53 mls @ 104 mls/hr IVPB 0600,1800 [facility] Last Admin: 08/03/17 05:46 Dose: 104 mls/hr Pantoprazole Sodium (Protonix 40mg Ivpb) 40 mg in 100 mls @ 20 mls/hr IVPB .Q5H [facility] Last Admin: 08/03/17 05:47 Dose: 20 mls/hr Octreotide Acetate 1,250 mcg/ (Sodium Chloride) 252.5 mls @ 5.05 mls/hr IV .Q24H [facility]; 25 MCG/HR PRN Reason: Protocol Last Admin: 08/02/17 19:56 Dose: 25 mcg/hr, 5.05 mls/hr Ceftriaxone Sodium (Rocephin 1 Gram Ivpb) 1 gm in 100 mls @ 100 mls/hr IVPB DAILY [facility] PRN Reason: Protocol Last Admin: 08/02/17 09:48 Dose: 100 mls/hr Potassium Chloride 40 meq/ (Dextrose/Sodium Chloride) 1,020 mls @ 60 mls/hr IV .Q17H [facility] Last Admin: 08/03/17 03:54 Dose: Not Given Insulin Human Regular (Humulin R Low) 0 units SC ACHS [facility] PRN Reason: Protocol Last Admin: 08/02/17 22:34 Dose: Not Given Lactulose (Enulose) 20 gm PO BID [facility] Last Admin: 07/29/17 22:15 Dose: Not Given Lidocaine (Lidoderm) 1 ea TD DAILY [facility] Last Admin: 08/02/17 09:47 Dose: 1 ea Ondansetron HCl (Zofran Inj) 4 mg IVP Q6H PRN PRN Reason: Nausea/Vomiting Last Admin: 07/29/17 21:15 Dose: 4 mg Rifaximin (Xifaxan) 550 mg PO BID [facility] PRN Reason: Protocol Last Admin: 07/29/17 20:29 Dose: Not Given Thiamine HCl (Vitamin B1 Inj) 100 mg IM BID [facility] Last Admin: 08/02/17 18:59 Dose: 100 mg - Labs Labs: 08/02/17 06:40 08/02/17 06:40 PT 19.6 Seconds (9.9-11.8) H 07/29/17 18:05 INR 1.81 (0.93-1.08) H 07/29/17 18:05 APTT 32.1 Seconds (23.7-30.8) H 07/29/17 18:05 - Constitutional Appears: Non-toxic, No Acute Distress - Head Exam Head Exam: NORMAL INSPECTION - ENT Exam ENT Exam: Mucous Membranes Moist - Neck Exam Neck Exam: absent: Meningismus - Respiratory Exam Respiratory Exam: Decreased Breath Sounds - Cardiovascular Exam Cardiovascular Exam: +S1, +S2 - GI/Abdominal Exam GI & Abdominal Exam: Soft. absent: Tenderness Assessment and Plan - Assessment and Plan (Free Text) Plan: Assessment S/P Systemic Inflammatory Response Syndrome, with no evidence of new onset sepsis acute encephalopathy probably due to hepatic encephalopathy pancreatic cancer with liver metastases S/P chemotherapy and radiation Esophageal varices HTN DM dementia history of neurosyphilis seizure disorder asthma schizophrenia Plan repeat blood cx, urine cx are negative; stool for C. diff. is negative; repeat CXR does not show infiltrates will continue to monitor off antibiotics since he is at risk for nosocomial infections
--- NOTE | 2017-08-03 14:24 | CP.PCM.PN ---
<Vale Lo - Last Filed: 08/03/17 14:24> Subjective - Date & Time of Evaluation Date of Evaluation: 08/03/17 Time of Evaluation: 10:05 - Subjective Subjective: Seen and examined at the bedside earlier this morning, the chart is reviewed. No acute overnight events reported. Patient reported to have no BM, no reports of any overt GI bleed. Patient is awake alert, denies any pain. Objective - Vital Signs/Intake and Output Vital Signs (last 24 hours): Temp Pulse Resp BP Pulse Ox 99.5 F 82 20 103/69 96 08/03/17 08:57 08/03/17 08:57 08/03/17 08:57 08/03/17 08:57 08/03/17 08:57 Intake and Output: 08/03/17 08/03/17 06:59 18:59 Intake Total 792.5 1499 Output Total 600 500 Balance 192.5 999 - Medications Medications: Current Medications Collagenase (Santyl) 1 gm TOP DAILY [facility] Last Admin: 08/03/17 10:01 Dose: 1 applic Enoxaparin Sodium (Lovenox) 30 mg SC DAILY [facility] PRN Reason: Protocol Last Admin: 08/03/17 09:57 Dose: 30 mg Phenytoin 150 mg/ Sodium (Chloride) 53 mls @ 104 mls/hr IVPB 0600,1800 [facility] Last Admin: 08/03/17 05:46 Dose: 104 mls/hr Pantoprazole Sodium (Protonix 40mg Ivpb) 40 mg in 100 mls @ 20 mls/hr IVPB .Q5H [facility] Last Admin: 08/03/17 10:01 Dose: 20 mls/hr Octreotide Acetate 1,250 mcg/ (Sodium Chloride) 252.5 mls @ 5.05 mls/hr IV .Q24H [facility]; 25 MCG/HR PRN Reason: Protocol Last Admin: 08/02/17 19:56 Dose: 25 mcg/hr, 5.05 mls/hr Ceftriaxone Sodium (Rocephin 1 Gram Ivpb) 1 gm in 100 mls @ 100 mls/hr IVPB DAILY [facility] PRN Reason: Protocol Last Admin: 08/03/17 09:57 Dose: 100 mls/hr Potassium Chloride 40 meq/ (Dextrose/Sodium Chloride) 1,020 mls @ 60 mls/hr IV .Q17H [facility] Last Admin: 08/03/17 10:00 Dose: 60 mls/hr Insulin Human Regular (Humulin R Low) 0 units SC ACHS [facility] PRN Reason: Protocol Last Admin: 08/03/17 11:56 Dose: 2 units Lactulose (Enulose) 20 gm PO BID [facility] Last Admin: 07/29/17 22:15 Dose: Not Given Lidocaine (Lidoderm) 1 ea TD DAILY [facility] Last Admin: 08/03/17 09:57 Dose: 1 ea Ondansetron HCl (Zofran Inj) 4 mg IVP Q6H PRN PRN Reason: Nausea/Vomiting Last Admin: 07/29/17 21:15 Dose: 4 mg Potassium Phos/Sodium Phos (Neutra-Phos) 1 pkt PO TID [facility] Last Admin: 08/03/17 09:57 Dose: 1 pkt Rifaximin (Xifaxan) 550 mg PO BID [facility] PRN Reason: Protocol Last Admin: 07/29/17 20:29 Dose: Not Given Thiamine HCl (Vitamin B1 Inj) 100 mg IM BID [facility] Last Admin: 08/03/17 09:56 Dose: 100 mg - Labs Labs: 08/02/17 06:40 08/03/17 05:45 PT 19.6 Seconds (9.9-11.8) H 07/29/17 18:05 INR 1.81 (0.93-1.08) H 07/29/17 18:05 APTT 32.1 Seconds (23.7-30.8) H 07/29/17 18:05 - Constitutional Appears: No Acute Distress - Eye Exam Eye Exam: Scleral icterus - ENT Exam ENT Exam: Mucous Membranes Moist - Neck Exam Neck Exam: Normal Inspection - Respiratory Exam Respiratory Exam: NORMAL BREATHING PATTERN. absent: Respiratory Distress - Cardiovascular Exam Cardiovascular Exam: +S1, +S2 - GI/Abdominal Exam GI & Abdominal Exam: Distended, Firm, Normal Bowel Sounds. absent: Guarding, Tenderness, Rebound - Extremities Exam Extremities Exam: Pedal Edema. 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 ID On octreotide drip Continue PPI Ethics committee met, and determined that patient has poor prognosis and recommend for patient to be DNR/DNI with hospice care. Seen and discussed with Dr. Guerrero <Harjeet Guerrero V - Last Filed: 08/03/17 23:52> Objective - Vital Signs/Intake and Output Vital Signs (last 24 hours): Temp Pulse Resp BP Pulse Ox 98.9 F 62 18 114/72 96 08/03/17 17:38 08/03/17 17:38 08/03/17 17:38 08/03/17 17:38 08/03/17 17:38 Intake and Output: 08/03/17 08/04/17 18:59 06:59 Intake Total 1499 480 Output Total 500 900 Balance 999 -420 - Medications Medications: Current Medications Collagenase (Santyl) 1 gm TOP DAILY [facility] Last Admin: 08/03/17 10:01 Dose: 1 applic Enoxaparin Sodium (Lovenox) 30 mg SC DAILY [facility] PRN Reason: Protocol Last Admin: 08/03/17 09:57 Dose: 30 mg Phenytoin 150 mg/ Sodium (Chloride) 53 mls @ 104 mls/hr IVPB 0600,1800 [facility] Last Admin: 08/03/17 19:13 Dose: 104 mls/hr Ceftriaxone Sodium (Rocephin 1 Gram Ivpb) 1 gm in 100 mls @ 100 mls/hr IVPB DAILY [facility] PRN Reason: Protocol Last Admin: 08/03/17 09:57 Dose: 100 mls/hr Potassium Chloride 40 meq/ (Dextrose/Sodium Chloride) 1,020 mls @ 60 mls/hr IV .Q17H [facility] Last Admin: 08/03/17 10:00 Dose: 60 mls/hr Insulin Human Regular (Humulin R Low) 0 units SC ACHS [facility] PRN Reason: Protocol Last Admin: 08/03/17 22:52 Dose: Not Given Lactulose (Enulose) 20 gm PO BID [facility] Last Admin: 07/29/17 22:15 Dose: Not Given Lidocaine (Lidoderm) 1 ea TD DAILY [facility] Last Admin: 08/03/17 09:57 Dose: 1 ea Ondansetron HCl (Zofran Inj) 4 mg IVP Q6H PRN PRN Reason: Nausea/Vomiting Last Admin: 07/29/17 21:15 Dose: 4 mg Pantoprazole Sodium (Protonix Ec Tab) 40 mg PO 0600 [facility] Potassium Phos/Sodium Phos (Neutra-Phos) 1 pkt PO TID [facility] Last Admin: 08/03/17 19:14 Dose: 1 pkt Rifaximin (Xifaxan) 550 mg PO BID [facility] PRN Reason: Protocol Last Admin: 07/29/17 20:29 Dose: Not Given Thiamine HCl (Vitamin B1 Inj) 100 mg IM BID [facility] Last Admin: 08/03/17 19:14 Dose: 100 mg - Labs Labs: 08/02/17 06:40 08/03/17 05:45 PT 19.6 Seconds (9.9-11.8) H 07/29/17 18:05 INR 1.81 (0.93-1.08) H 07/29/17 18:05 APTT 32.1 Seconds (23.7-30.8) H 07/29/17 18:05 Attending/Attestation - Attestation I have personally seen and examined this patient.: Yes I have fully participated in the care of the patient.: Yes I have reviewed all pertinent clinical information, including history, physical exam and plan: Yes
[2017-08-03] MEDS ORDERED: Magnesium Sulfate 2 GM in Sodium Chloride 0.9% 100 ML IVPB ONE (15:51)
[2017-08-03 17:39] VITALS: BP 114/72; PULSE 62; RESP 18; TEMP 98.9
--- NOTE | 2017-08-03 19:09 | US ---
PROCEDURE: Ultrasound guided paracentesis. HISTORY: Metastatic pancreatic CA. Current ascites with abdominal pain and shortness of breath. Needs paracentesis. PHYSICIAN(S): Raghu Luque MD. 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 Sonography of the abdomen was performed in a supine position. This revealed a moderate to large amount of non-loculated ascites, greatest in the right lower abdomen. A puncture site was selected and the area was prepped and draped in the usual sterile fashion. 1% Xylocaine was used to anesthetize the skin and soft tissues. A 7 [place] paracentesis catheter was trocared into the right lower quadrantand 5400 cc of clear, straw-colored fluid aspirated. No labs were sent. IMPRESSION: Ultrasound-guided paracentesis in the right lower quadrant. 5400 cc of fluid were aspirated.
--- NOTE | 2017-08-03 21:53 | CP.PCM.PN ---
Subjective - Date & Time of Evaluation Date of Evaluation: 08/03/17 Time of Evaluation: 09:00 - Subjective Subjective: Heme/Onc progress note for Dr. Finch's service No acute overnight events. Patient planned for hospice services. Objective - Vital Signs/Intake and Output Vital Signs (last 24 hours): Temp Pulse Resp BP Pulse Ox 98.9 F 62 18 114/72 96 08/03/17 17:38 08/03/17 17:38 08/03/17 17:38 08/03/17 17:38 08/03/17 17:38 Intake and Output: 08/03/17 08/04/17 18:59 06:59 Intake Total 1499 Output Total 500 Balance 999 - Medications Medications: Current Medications Collagenase (Santyl) 1 gm TOP DAILY [facility] Last Admin: 08/03/17 10:01 Dose: 1 applic Enoxaparin Sodium (Lovenox) 30 mg SC DAILY [facility] PRN Reason: Protocol Last Admin: 08/03/17 09:57 Dose: 30 mg Phenytoin 150 mg/ Sodium (Chloride) 53 mls @ 104 mls/hr IVPB 0600,1800 [facility] Last Admin: 08/03/17 19:13 Dose: 104 mls/hr Ceftriaxone Sodium (Rocephin 1 Gram Ivpb) 1 gm in 100 mls @ 100 mls/hr IVPB DAILY [facility] PRN Reason: Protocol Last Admin: 08/03/17 09:57 Dose: 100 mls/hr Potassium Chloride 40 meq/ (Dextrose/Sodium Chloride) 1,020 mls @ 60 mls/hr IV .Q17H [facility] Last Admin: 08/03/17 10:00 Dose: 60 mls/hr Insulin Human Regular (Humulin R Low) 0 units SC ACHS [facility] PRN Reason: Protocol Last Admin: 08/03/17 19:12 Dose: 2 units Lactulose (Enulose) 20 gm PO BID [facility] Last Admin: 07/29/17 22:15 Dose: Not Given Lidocaine (Lidoderm) 1 ea TD DAILY [facility] Last Admin: 08/03/17 09:57 Dose: 1 ea Ondansetron HCl (Zofran Inj) 4 mg IVP Q6H PRN PRN Reason: Nausea/Vomiting Last Admin: 07/29/17 21:15 Dose: 4 mg Pantoprazole Sodium (Protonix Ec Tab) 40 mg PO 0600 [facility] Potassium Phos/Sodium Phos (Neutra-Phos) 1 pkt PO TID [facility] Last Admin: 08/03/17 19:14 Dose: 1 pkt Rifaximin (Xifaxan) 550 mg PO BID [facility] PRN Reason: Protocol Last Admin: 07/29/17 20:29 Dose: Not Given Thiamine HCl (Vitamin B1 Inj) 100 mg IM BID [facility] Last Admin: 08/03/17 19:14 Dose: 100 mg - Labs Labs: 08/02/17 06:40 08/03/17 05:45 PT 19.6 Seconds (9.9-11.8) H 07/29/17 18:05 INR 1.81 (0.93-1.08) H 07/29/17 18:05 APTT 32.1 Seconds (23.7-30.8) H 07/29/17 18:05 - Constitutional Appears: No Acute Distress - Head Exam Head Exam: ATRAUMATIC, NORMAL INSPECTION, NORMOCEPHALIC - Eye Exam Eye Exam: EOMI, PERRL - ENT Exam ENT Exam: Mucous Membranes Moist - Respiratory Exam Respiratory Exam: Decreased Breath Sounds. absent: Rales, Rhonchi, Wheezes - Cardiovascular Exam Cardiovascular Exam: +S1, +S2. absent: Gallop, Rubs, Murmur - GI/Abdominal Exam GI & Abdominal Exam: Soft. absent: Guarding, Rigid, Tenderness, Rebound - Neurological Exam Neurological Exam: Alert, Awake - Psychiatric Exam Psychiatric exam: Normal Affect, Normal Mood - Skin Skin Exam: Dry, Intact, Warm Assessment and Plan - Assessment and Plan (Free Text) Plan: 56yo male with history of dementia, schizophrenia, seizure disorder, neurosyphilis, stave IV pancreatic ca s/p carbo/gemzar admitted for sepsis secondary to obstructed CBD/biliary stricture 1. Stage IV pancreatic cancer -Patient is s/p chemotherapy treatment with carbo/gemzar -At this time, due to his poor performance status further chemotherapy is not recommended -Patient underwent evaluation by ethics committee for hospice care and state guardian [facility] -Recommend hospice care for Mr. Saha given his poor prognosis and limited treatment options -Palliative consult 2. CBD obstruction -Patient is s/p ERCP by GI (Dr. Guerrero) and was found to have a obstructed CBD stent and biliary stricture -Recommend follow up with GI recommendations Patient seen and case discussed with attending, Dr. Finch
--- NOTE | 2017-08-04 03:32 | PN ---
DATE: SUBJECTIVE: The patient is a 56 years old male. The patient is seen and examined on the bedside. Looking comfortable. Abdomen is tense. No acute event overnight. Tolerating food very well. No reports of any GI bleeding. No nausea, vomiting, or diarrhea. No headache. No dizziness. The patient today went for paracentesis, 5400 mL fluid was taken out. Discussion done with Ellyn Mariscal and nursing staff. PHYSICAL EXAMINATION: VITAL SIGNS: Temperature 99.5, pulse 82, respiratory rate 20, blood pressure 113/69, and pulse oximetry 96%. HEENT: Head, normocephalic and atraumatic. Eyes, PERRLA. Extraocular muscles intact. Conjunctivae clear. Nose patent. NECK: Supple. No carotid bruits. No JVD or thyromegaly. CHEST: Bilaterally symmetrical. HEART: S1 and S2 positive. LUNGS: Clear to auscultation. ABDOMEN: Soft. Bowel sounds positive. No organomegaly. EXTREMITIES: No edema. No cyanosis. NEUROLOGICAL: The patient is awake and alert. Moving all 4 extremities. No focal deficits. MEDICATIONS: Lovenox, Dilantin, Protonix, NS, Rocephin, dextrose, Enulose, Lidoderm, and vitamins. LABORATORY DATA: White blood cells 13.3, hemoglobin 9.5, hematocrit 28.6, and platelets 184. Sodium 133 and potassium 3.2. BUN 3, creatinine 0.3, and glucose 146. ASSESSMENT AND PLAN: Mr. 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 Paracentesis done to make the patient comfortable. Working on to make the patient do not resuscitate and do not intubate and hospice with the patient's State Officer. The patient on Octreotide, antibiotics. Getting clear liquid. Ethics Committee method determined that the patient has poor prognosis and recommended the patient to be do not resuscitate and do not intubate with hospice care. Discussion done with Ellyn Mariscal. The patient's State appointed guardian, received Ethics Committee report recommendation and has agreed to initiate the hospice care. Guardian signed hospice agreement and do not resuscitate do not intubate. [facility] tomorrow. Gastrointestinal and deep venous thrombosis prophylaxis. We will follow. Michelle Castillo MD MTDD
--- NOTE | 2017-08-04 03:32 | PN ---
DATE: 08/03/2017 This is [facility] visit on the medical floor. For Dr. Finch. SUBJECTIVE: Patient is a 56-year-old male, seen lying awake in bed, status post paracentesis of proximally 5 liters of fluid earlier today. Lethargic, in no acute distress. The patient is known to suffer from metastatic pancreatic cancer, dementia, history of neurosyphilis, with schizophrenia, now being treated for his recurrent ascites with history of SIRS and sepsis. He appears to be in no acute distress. It should be noted that committee meeting held on 07/31/2017 unanimously agreed that no medical intervention could be initiated can provide benefit to patient with hospice strongly recommended. With this now agreed with patient to be transferred back to his [place] [facility] for hospice as indicated. He is in no acute distress. OBJECTIVE/PHYSICAL EXAMINATION: VITAL SIGNS: Temperature 98.9, pulse 62, respirations 18, blood pressure 114/72, pulse ox 96%. HEENT: Sclerae icteric. He appears cachectic. NECK: Supple. HEART: Tachy rate, regular rhythm. LUNGS: Minimal decreased breath sounds at the bases. ABDOMEN: Distended, nontender. EXTREMITIES: Faint +1 edema. NEUROLOGIC: Lethargic, but arousable. SKIN: Icteric, clear. LABORATORY DATA: The patient's labs were done yesterday with a CBC; white count of 13.3, hemoglobin of 9.5, hematocrit 28.6, platelet count of 184,000. A chem metabolic panel showing a potassium of 3.2, calcium 6.9, been corrected by Dr. Garces, renal group segment consultant from today. ASSESSMENT: Stage IV pancreatic cancer with metastasis, history of dementia, schizophrenia, seizure disorder, neurosyphilis, status post treatment for sepsis with common bile duct obstruction, recurrent ascites. Patient also has hypertension and diabetes. PLAN: The plan for this patient is to continue present medical regimen with ascites removed as per paracentesis with the patient now to be put on hospice care as per committees' decision. Prognosis of the patient is grave. We will sign off the case. Wild Santillan MD
--- NOTE | 2017-08-04 05:25 | CP.PCM.PN ---
Subjective - Date & Time of Evaluation Date of Evaluation: 08/04/17 Time of Evaluation: 05:24 - Subjective Subjective: It was requested by nurse Morales to order PO dilanti. Patient is being discharged today. Objective - Vital Signs/Intake and Output Vital Signs (last 24 hours): Temp Pulse Resp BP Pulse Ox 98.9 F 62 18 114/72 96 08/03/17 17:38 08/03/17 17:38 08/03/17 17:38 08/03/17 17:38 08/03/17 17:38 Intake and Output: 08/03/17 08/04/17 18:59 06:59 Intake Total 1499 480 Output Total 500 900 Balance 999 -420 - Medications Medications: Current Medications Collagenase (Santyl) 1 gm TOP DAILY [facility] Last Admin: 08/03/17 10:01 Dose: 1 applic Enoxaparin Sodium (Lovenox) 30 mg SC DAILY [facility] PRN Reason: Protocol Last Admin: 08/03/17 09:57 Dose: 30 mg Phenytoin 150 mg/ Sodium (Chloride) 53 mls @ 104 mls/hr IVPB 0600,1800 [facility] Last Admin: 08/03/17 19:13 Dose: 104 mls/hr Ceftriaxone Sodium (Rocephin 1 Gram Ivpb) 1 gm in 100 mls @ 100 mls/hr IVPB DAILY [facility] PRN Reason: Protocol Last Admin: 08/03/17 09:57 Dose: 100 mls/hr Potassium Chloride 40 meq/ (Dextrose/Sodium Chloride) 1,020 mls @ 60 mls/hr IV .Q17H [facility] Last Admin: 08/03/17 10:00 Dose: 60 mls/hr Insulin Human Regular (Humulin R Low) 0 units SC ACHS [facility] PRN Reason: Protocol Last Admin: 08/03/17 22:52 Dose: Not Given Lactulose (Enulose) 20 gm PO BID [facility] Last Admin: 07/29/17 22:15 Dose: Not Given Lidocaine (Lidoderm) 1 ea TD DAILY [facility] Last Admin: 08/03/17 09:57 Dose: 1 ea Ondansetron HCl (Zofran Inj) 4 mg IVP Q6H PRN PRN Reason: Nausea/Vomiting Last Admin: 07/29/17 21:15 Dose: 4 mg Pantoprazole Sodium (Protonix Ec Tab) 40 mg PO 0600 [facility] Phenytoin Sodium (Dilantin) 100 mg PO ONCE ONE Stop: 08/04/17 06:01 Potassium Phos/Sodium Phos (Neutra-Phos) 1 pkt PO TID [facility] Last Admin: 08/03/17 19:14 Dose: 1 pkt Rifaximin (Xifaxan) 550 mg PO BID [facility] PRN Reason: Protocol Last Admin: 07/29/17 20:29 Dose: Not Given Thiamine HCl (Vitamin B1 Inj) 100 mg IM BID [facility] Last Admin: 08/03/17 19:14 Dose: 100 mg - Labs Labs: 08/02/17 06:40 08/03/17 05:45 PT 19.6 Seconds (9.9-11.8) H 07/29/17 18:05 INR 1.81 (0.93-1.08) H 07/29/17 18:05 APTT 32.1 Seconds (23.7-30.8) H 07/29/17 18:05
[2017-08-04] MEDS ORDERED: Pantoprazole 40 mg EC Tab PO SCH (06:00)
--- NOTE | 2017-08-04 08:14 | PN ---
DATE: 07/26/2017 REASON FOR CONSULTATION: Follow up cardiac evaluation, pancreatic abscess, carcinoma with metastasis. SUBJECTIVE: The patient denies any chest pain, any shortness of breath, or any palpitation or dizziness. Lying flat in the bed. Abdomen appears distended. PHYSICAL EXAMINATION: VITAL SIGNS: Temperature afebrile, heart rate 80, blood pressure 103/69. HEENT: PERRLA. Extraocular muscles intact. NECK: Supple. No carotid bruit. No thyromegaly. HEART: S1 and S2 regular. CHEST: Clear to auscultation. ABDOMEN: Soft. EXTREMITIES: Clubbing and cyanosis negative. LABORATORY DATA: Blood workup as follows: WBC 7.4, hemoglobin 9.3, hematocrit 28.6, and platelet count 184. Chemistry shows sodium 135, potassium 3.2, chloride 90,carbon dioxide 28, anion gap of 10, BUN 3, and creatinine 0.3, calcium 6.9, phosphorus 1.7, magnesium 1.6. IMPRESSION: Multiple electrolytes abnormality, hypokalemia, hypophosphatemia, hypomagnesemia, carcinoma of the pancreas with metastasis, large ascites, history of paracentesis, coffee-ground vomitus, so far no cardiac arrhythmia noted, malnutrition. RECOMMENDATION: Aggressive supplement electrolytes, supplement phosphate, potassium, and magnesium, continue Dilantin, continue DVT prophylaxis. We will sign off and glad to follow p.r.n. CV status is stable. A 1 g of magnesium was given. We will give 2 more grams of IV magnesium. Thank you Dr. Castillo for providing the opportunity in taking care of the patient, John Saha. Jayme Harris MD
[2017-08-04] MEDS: Insulin Reg-LOW-Coverage SC SCH ×2 (09:24→12:40)
[2017-08-04] MEDS: Thiamine 100 mg/ml Inj IM SCH (09:30)
[2017-08-04] MEDS: Enoxaparin 30 mg Syringe SC SCH (09:30)
[2017-08-04] MEDS: cefTRIAXone 1 gm 1 GM/100 ML BAG IVPB SCH (09:31)
[2017-08-04] MEDS: Collagenase 250 Units/gm Ointment(30 gm) TOP SCH (09:31)
--- NOTE | 2017-08-04 10:07 | CP.PCM.PN ---
Subjective - Date & Time of Evaluation Date of Evaluation: 08/04/17 Time of Evaluation: 09:59 - Subjective Subjective: Progress note for Dr. Finch's service No acute overnight events or new complaints reported. Anticipated discharge today to [place] for hospice service. Objective - Vital Signs/Intake and Output Vital Signs (last 24 hours): Temp Pulse Resp BP Pulse Ox 98.9 F 62 18 114/72 96 08/03/17 17:38 08/03/17 17:38 08/03/17 17:38 08/03/17 17:38 08/03/17 17:38 Intake and Output: 08/04/17 08/04/17 06:59 18:59 Intake Total 480 480 Output Total 900 1850 Balance -420 -1370 - Medications Medications: Current Medications Collagenase (Santyl) 1 gm TOP DAILY [facility] Last Admin: 08/04/17 09:31 Dose: 1 applic Enoxaparin Sodium (Lovenox) 30 mg SC DAILY [facility] PRN Reason: Protocol Last Admin: 08/04/17 09:30 Dose: 30 mg Ceftriaxone Sodium (Rocephin 1 Gram Ivpb) 1 gm in 100 mls @ 100 mls/hr IVPB DAILY [facility] PRN Reason: Protocol Last Admin: 08/04/17 09:31 Dose: 100 mls/hr Potassium Chloride 40 meq/ (Dextrose/Sodium Chloride) 1,020 mls @ 60 mls/hr IV .Q17H [facility] Last Admin: 08/03/17 10:00 Dose: 60 mls/hr Insulin Human Regular (Humulin R Low) 0 units SC ACHS [facility] PRN Reason: Protocol Last Admin: 08/04/17 09:24 Dose: Not Given Lactulose (Enulose) 20 gm PO BID [facility] Last Admin: 07/29/17 22:15 Dose: Not Given Lidocaine (Lidoderm) 1 ea TD DAILY [facility] Last Admin: 08/03/17 09:57 Dose: 1 ea Ondansetron HCl (Zofran Inj) 4 mg IVP Q6H PRN PRN Reason: Nausea/Vomiting Last Admin: 08/04/17 05:47 Dose: 4 mg Pantoprazole Sodium (Protonix Ec Tab) 40 mg PO 0600 [facility] Last Admin: 08/04/17 05:47 Dose: 40 mg Potassium Phos/Sodium Phos (Neutra-Phos) 1 pkt PO TID [facility] Last Admin: 08/03/17 19:14 Dose: 1 pkt Rifaximin (Xifaxan) 550 mg PO BID [facility] PRN Reason: Protocol Last Admin: 07/29/17 20:29 Dose: Not Given Thiamine HCl (Vitamin B1 Inj) 100 mg IM BID [facility] Last Admin: 08/04/17 09:30 Dose: 100 mg - Labs Labs: 08/02/17 06:40 08/03/17 05:45 PT 19.6 Seconds (9.9-11.8) H 07/29/17 18:05 INR 1.81 (0.93-1.08) H 07/29/17 18:05 APTT 32.1 Seconds (23.7-30.8) H 07/29/17 18:05 - Constitutional Appears: No Acute Distress - Head Exam Head Exam: ATRAUMATIC, NORMOCEPHALIC - Eye Exam Eye Exam: EOMI, PERRL - ENT Exam ENT Exam: Mucous Membranes Moist - Respiratory Exam Respiratory Exam: Decreased Breath Sounds. absent: Rales, Rhonchi, Wheezes - Cardiovascular Exam Cardiovascular Exam: +S1, +S2. absent: Gallop, Rubs, Murmur - GI/Abdominal Exam GI & Abdominal Exam: Soft. absent: Distended, Firm, Guarding, Rigid, Tenderness , Rebound - Neurological Exam Neurological Exam: Alert, Awake - Psychiatric Exam Psychiatric exam: Normal Affect, Normal Mood - Skin Skin Exam: Dry, Intact, Normal Color, Warm Assessment and Plan - Assessment and Plan (Free Text) Plan: 56yo male with history of dementia, schizophrenia, seizure disorder, neurosyphilis, stave IV pancreatic ca s/p carbo/gemzar admitted for sepsis secondary to obstructed CBD/biliary stricture 1. Stage IV pancreatic cancer -Patient is s/p chemotherapy treatment with carbo/gemzar -At this time, due to his poor performance status further chemotherapy is not recommended -Anticipated discharge today to [place] for hospice care -Patient underwent evaluation by ethics committee for hospice care and state guardian has approved hospice care at snf facility 2. CBD obstruction -Patient is s/p ERCP by GI (Dr. Guerrero) and was found to have a obstructed CBD stent and biliary stricture -Recommend follow up with GI recommendations Patient seen and case discussed with attending, Dr. Finch
--- NOTE | 2017-08-04 10:43 | CP.PCM.PN ---
Subjective - Date & Time of Evaluation Date of Evaluation: 08/04/17 Time of Evaluation: 09:45 - Subjective Subjective: Comfortable, afebrile, not in distress. Paracentesis was again done yesterday and patient tolerated the procedure. Objective - Vital Signs/Intake and Output Vital Signs (last 24 hours): Temp Pulse Resp BP Pulse Ox 98.9 F 62 18 114/72 96 08/03/17 17:38 08/03/17 17:38 08/03/17 17:38 08/03/17 17:38 08/03/17 17:38 Intake and Output: 08/04/17 08/04/17 06:59 18:59 Intake Total 480 480 Output Total 900 1850 Balance -420 -1370 - Medications Medications: Current Medications Collagenase (Santyl) 1 gm TOP DAILY [facility] Last Admin: 08/03/17 10:01 Dose: 1 applic Enoxaparin Sodium (Lovenox) 30 mg SC DAILY [facility] PRN Reason: Protocol Last Admin: 08/03/17 09:57 Dose: 30 mg Ceftriaxone Sodium (Rocephin 1 Gram Ivpb) 1 gm in 100 mls @ 100 mls/hr IVPB DAILY [facility] PRN Reason: Protocol Last Admin: 08/03/17 09:57 Dose: 100 mls/hr Potassium Chloride 40 meq/ (Dextrose/Sodium Chloride) 1,020 mls @ 60 mls/hr IV .Q17H [facility] Last Admin: 08/03/17 10:00 Dose: 60 mls/hr Insulin Human Regular (Humulin R Low) 0 units SC ACHS [facility] PRN Reason: Protocol Last Admin: 08/03/17 22:52 Dose: Not Given Lactulose (Enulose) 20 gm PO BID [facility] Last Admin: 07/29/17 22:15 Dose: Not Given Lidocaine (Lidoderm) 1 ea TD DAILY [facility] Last Admin: 08/03/17 09:57 Dose: 1 ea Ondansetron HCl (Zofran Inj) 4 mg IVP Q6H PRN PRN Reason: Nausea/Vomiting Last Admin: 08/04/17 05:47 Dose: 4 mg Pantoprazole Sodium (Protonix Ec Tab) 40 mg PO 0600 [facility] Last Admin: 08/04/17 05:47 Dose: 40 mg Potassium Phos/Sodium Phos (Neutra-Phos) 1 pkt PO TID [facility] Last Admin: 08/03/17 19:14 Dose: 1 pkt Rifaximin (Xifaxan) 550 mg PO BID [facility] PRN Reason: Protocol Last Admin: 07/29/17 20:29 Dose: Not Given Thiamine HCl (Vitamin B1 Inj) 100 mg IM BID [facility] Last Admin: 08/03/17 19:14 Dose: 100 mg - Labs Labs: 08/02/17 06:40 08/03/17 05:45 PT 19.6 Seconds (9.9-11.8) H 07/29/17 18:05 INR 1.81 (0.93-1.08) H 07/29/17 18:05 APTT 32.1 Seconds (23.7-30.8) H 07/29/17 18:05 - Constitutional Appears: Non-toxic, No Acute Distress, Chronically Ill - Head Exam Head Exam: NORMAL INSPECTION - Neck Exam Neck Exam: absent: Meningismus - Respiratory Exam Respiratory Exam: Decreased Breath Sounds - Cardiovascular Exam Cardiovascular Exam: +S1, +S2 - GI/Abdominal Exam GI & Abdominal Exam: Soft. absent: Tenderness Assessment and Plan - Assessment and Plan (Free Text) Plan: Assessment S/P Systemic Inflammatory Response Syndrome, with no evidence of new onset sepsis acute encephalopathy probably due to hepatic encephalopathy, improved pancreatic cancer with liver metastases S/P chemotherapy and radiation Esophageal varices HTN DM dementia history of neurosyphilis seizure disorder asthma schizophrenia Plan repeat blood cx, urine cx are negative; stool for C. diff. is negative; repeat CXR does not show infiltrates will continue to monitor off antibiotics since he is at risk for hospital- acquired infections Overall prognosis is poor and patient is for hospice
[2017-08-04] MEDS: Lidocaine 5% Patch TD SCH (14:40)
== END 2017-08-04 19:35 | disposition home or self-care (01) | DRG 584 ==
LOC: ED 09:56 → ERH 11:50 → 2RSO 14:31 → CCU 07-12 09:56 → 2RNO 07-14 17:28 → 5RSO 07-18 22:35 → 3RSO 07-20 13:53
PROVIDERS: ADMIT Internal Medicine; ATTEND Internal Medicine
PROC: 0W9G3ZZ Drainage of Peritoneal Cavity, Percutaneous Approach (ICD-10-PCS; principal; 2017-07-21 11:00)
PROC: 0F798ZZ Dilation of Common Bile Duct, Via Natural or Artificial Opening Endoscopic (ICD-10-PCS; 2017-07-28)
PROC: 0W9G3ZZ Drainage of Peritoneal Cavity, Percutaneous Approach (ICD-10-PCS; 2017-08-03)
DX: A41.9 Sepsis, unspecified organism (principal); K72.90 Hepatic failure, unspecified without coma; I81 Portal vein thrombosis; N17.9 Acute kidney failure, unspecified; J90 Pleural effusion, not elsewhere classified; G92 Toxic encephalopathy; K83.1 Obstruction of bile duct; C25.9 Malignant neoplasm of pancreas, unspecified; C78.7 Secondary malignant neoplasm of liver and intrahepatic bile duct; E87.0 Hyperosmolality and hypernatremia; I82.412 Acute embolism and thrombosis of left femoral vein; R18.8 Other ascites; E44.0 Moderate protein-calorie malnutrition; A52.3 Neurosyphilis, unspecified; N39.0 Urinary tract infection, site not specified; E11.43 Type 2 diabetes mellitus with diabetic autonomic (poly)neuropathy; E11.65 Type 2 diabetes mellitus with hyperglycemia; K56.7 Ileus, unspecified; E87.6 Hypokalemia; K56.41 Fecal impaction; E87.2 Acidosis; K74.60 Unspecified cirrhosis of liver; F20.9 Schizophrenia, unspecified; F02.80 Dementia in other diseases classified elsewhere, unspecified severity, without behavioral disturbance, psychotic disturbance, mood disturbance, and anxiety; E83.41 Hypermagnesemia; I10 Essential (primary) hypertension; K22.70 Barrett's esophagus without dysplasia; D64.9 Anemia, unspecified; G40.909 Epilepsy, unspecified, not intractable, without status epilepticus; J45.909 Unspecified asthma, uncomplicated; E86.0 Dehydration; F31.9 Bipolar disorder, unspecified; K31.84 Gastroparesis; K52.9 Noninfective gastroenteritis and colitis, unspecified; Z68.23 Body mass index [BMI] 23.0-23.9, adult; E83.39 Other disorders of phosphorus metabolism; I86.4 Gastric varices; I85.00 Esophageal varices without bleeding; K29.70 Gastritis, unspecified, without bleeding; K76.6 Portal hypertension; K31.89 Other diseases of stomach and duodenum; E83.51 Hypocalcemia; Z66 Do not resuscitate; Z51.5 Encounter for palliative care; E03.9 Hypothyroidism, unspecified; E78.00 Pure hypercholesterolemia, unspecified; D75.89 Other specified diseases of blood and blood-forming organs; Z74.01 Bed confinement status; Z79.4 Long term (current) use of insulin; Z78.1 Physical restraint status; Z86.73 Personal history of transient ischemic attack (TIA), and cerebral infarction without residual deficits; Z92.21 Personal history of antineoplastic chemotherapy; Z92.3 Personal history of irradiation; Z87.891 Personal history of nicotine dependence

== ENCOUNTER 2017-08-24 08:26 | Day surgery (SDC) | payer MEDICAID ==
[2017-08-24 09:02] VITALS: BMI 24.3
[2017-08-24 09:22] VITALS: RESP 18; O2SAT 91
[2017-08-24 09:29] LABS: BASO # 0.03 K/mm3 (0.0-2.0); BASO % 0.1 % (0.0-3.0); EOS # 0.1 (0.0-0.7); EOS % 0.4 % (1.5-5.0); GRAN # 18.75 (1.4-6.5); GRAN % 88.9 % (50.0-68.0); HEMATOCRIT 36.5 % (42.0-52.0); LYMPH # 0.8 (1.2-3.4); LYMPH % 3.7 % (22.0-35.0); MEAN CELL VOLUME 87.7 fl (80.0-105.0); MEAN CORPUSCULAR HEMOGLOBIN 29.8 pg (25.0-35.0); MEAN PLATELET VOLUME 9.5 fl (7.0-11.0); MONO # 1.5 (0.1-0.6); MONO % 6.9 % (1.0-6.0); PLATELET COUNT 335 10^3/uL (120.0-450.0); RED CELL DISTRIBUTION WIDTH 21.2 % (11.5-14.5); WHITE BLOOD COUNT 21.1 10^3/ul (4.5-11.0)
[2017-08-24 09:34] LABS: BLOOD UREA NITROGEN 10 mg/dL (7-21); CALCIUM 7.7 mg/dL (8.4-10.5); CARBON DIOXIDE 26 mmol/L (21-33); CHLORIDE 96 mmol/L (98-107); GFR AFRICAN-AMERICAN > 60; GLUCOSE,RANDOM 92 mg/dL (70-110); POTASSIUM 3.7 mmol/L (3.6-5.0); SODIUM 132 mmol/L (132-148)
[2017-08-24 09:50] LABS: INR 2.38 (0.93-1.08); PARTIAL THROMBOPLASTIN TIME 37.6 Seconds (25.1-36.5)
[2017-08-24 10:45] LABS: BAND 2 % (0-2); NEUTROPHIL 88 % (50.0-70.0)
[2017-08-24 10:46] LABS: ANISOCYTOSIS SLIGHT; PLATELET ESTIMATE NORMAL (NORMAL)
[2017-08-24 11:35] VITALS: BP 106/61; PULSE 86; TEMP 98.2
== END 2017-08-24 12:40 ==
LOC: OPSURG 08:26
PROVIDERS: ATTEND Radiology Vascular & Interventional Radiology
DX: R18.8 Other ascites (principal)

== ENCOUNTER 2017-08-29 04:24 | Emergency (ER) | payer MEDICAID ==
[2017-08-29 07:12] VITALS: BMI 21.9
[2017-08-29 08:51] VITALS: RESP 18
--- NOTE | 2017-08-29 09:19 | CT ---
PROCEDURE: CT HEAD WITHOUT CONTRAST. HISTORY: fall COMPARISON: Unenhanced head CT 07/11/2017 TECHNIQUE: Axial computed tomography images were obtained through the head/brain without intravenous contrast. Radiation dose: Total exam DLP = 629.69 mGy-cm. This CT exam was performed using one or more of the following dose reduction techniques: Automated exposure control, adjustment of the mA and/or kV according to patient size, and/or use of iterative reconstruction technique. FINDINGS: HEMORRHAGE: No intracranial hemorrhage. BRAIN: Stable chronic lacune medial right basal ganglia identified. Diffuse cerebral atrophy again identified. No suspicious interval findings identified above or below the tentorium. Brainstem again appears unremarkable. No suspicious extra-axial fluid collection with midline brain and unremarkable once again. VENTRICLES: Unremarkable. No hydrocephalus. CALVARIUM: Unremarkable. PARANASAL SINUSES: Unremarkable as visualized. No significant inflammatory changes. MASTOID AIR CELLS: Unremarkable as visualized. No inflammatory changes. OTHER FINDINGS: None. IMPRESSION: Stable minimal age-related degenerative changes are identified as well as a chronic lacune medial right basal ganglia. Follow-up CT or MRI are available if clinically warranted.
--- NOTE | 2017-08-29 09:55 | RAD ---
HISTORY: fall COMPARISON: No prior. FINDINGS: BOWEL: Mildly dilated small bowel loops are seen in the mid abdomen. There is a moderate amount of stool in the colon. BONES: There is no evidence of pelvic fracture OTHER FINDINGS: None. IMPRESSION: No evidence of fracture
[2017-08-29 12:09] VITALS: BP 107/52; PULSE 72; TEMP 97.8; O2SAT 96
== END 2017-08-29 12:18 ==
LOC: ED 04:24
DX: Z03.89 Encounter for observation for other suspected diseases and conditions ruled out (principal); W19.XXXA Unspecified fall, initial encounter; Y92.129 Unspecified place in nursing home as the place of occurrence of the external cause; E11.9 Type 2 diabetes mellitus without complications; E78.5 Hyperlipidemia, unspecified; E03.9 Hypothyroidism, unspecified; F03.90 Unspecified dementia, unspecified severity, without behavioral disturbance, psychotic disturbance, mood disturbance, and anxiety